=== PATIENT | female | born 1970 | race Caucasian/White ===

== ENCOUNTER 2018-04-21 08:23 | Emergency (ER) | payer MEDICARE, MEDICAID ==
[~2018-04-21] VITALS: Ht 162.6 cm; Wt 55.0 kg
[~2018-04-21 08:23] MED LIST: /LAMO10TA PO; /ONDA4TA PO; AKWASOL OU; ANBEEL MT; BACT800T5 PO; BENG1CRE3 TOP; CARB20TA PO; CLON2TAB PO; COGENTIN PO; HALD100I2 IM; KLON1TAB PO; MOTRIN PO; NICO21DI6 TD; PROZ20CA11 PO; TRAM50TA2 PO; ZOFR4TAB16 PO
[2018-04-21] MEDS ORDERED: PRED20TA PO (08:40)
[2018-04-21] MEDS ORDERED: CLON1TAB8 PO (08:40)
[2018-04-21] MEDS ORDERED: VENTAER INH (08:40)
[2018-04-21] MEDS ORDERED: FLUO20CA19 PO (08:40)
[2018-04-21] MEDS ORDERED: SUCR1SS PO (08:40)
[2018-04-21 11:35] VITALS: BP 124/68
== END 2018-04-21 11:40 | disposition home or self-care (01) ==
LOC: M ED 08:23
DX: F43.20 Adjustment disorder, unspecified (principal); F33.9 Major depressive disorder, recurrent, unspecified; K21.9 Gastro-esophageal reflux disease without esophagitis; Z88.0 Allergy status to penicillin; Z88.8 Allergy status to other drugs, medicaments and biological substances

== ENCOUNTER 2018-04-24 07:16 | Inpatient (IN) | payer MEDICARE, MEDICAID ==
[~2018-04-24] VITALS: Ht 162.6 cm; Wt 58.0 kg
[~2018-04-24 07:16] MED LIST changes: +CLON1TAB8 PO; +FLUO20CA19 PO; +PRED20TA PO; +SUCR1SS PO; +VENTAER INH
[2018-04-24 07:51] LABS: HEMATOCRIT 36.9 % (36.0-47.0); HEMOGLOBIN 12.1 g/dl (12.0-15.5); MEAN CORPUSCULAR HGB CONC 32.8 g/dl (32.0-36.5); MEAN CORPUSCULAR VOLUME 91.3 fl (80.0-96.0); PLATELET COUNT, AUTOMATED 335 10^3/uL (150-450); RED BLOOD COUNT 4.04 10^6/uL (4.00-5.40); WHITE BLOOD COUNT 9.8 10^3/uL (4.0-10.0)
[2018-04-24 08:11] LABS: AMPHETAMINES LEVEL URINE NEGATIVE (NEGATIVE); BARBITURATES URINE NEGATIVE (NEGATIVE); BENZODIAZEPINES URINE NEGATIVE (NEGATIVE); CANNABINOIDS URINE POSITIVE (NEGATIVE); COCAINE METABOLITE URINE NEGATIVE (NEGATIVE); METHADONE URINE NEGATIVE (NEGATIVE); OPIATES URINE NEGATIVE (NEGATIVE); PHENCYCLIDINE URINE NEGATIVE (NEGATIVE)
[2018-04-24] MEDS ORDERED: NICOTINE 21MG/24HR 1 EA TRANSDERMAL TD ONE (08:15)
[2018-04-24] MEDS ORDERED: ONDANSETRON 4 MG ORAL DISINTEGRATING TAB (Q0162 PER 1MG) PO ONE (08:15)
[2018-04-24 08:39] LABS: HCG, SERUM QUALITATIVE NEGATIVE (NEGATIVE)
[2018-04-24 08:43] LABS: ALBUMIN 3.7 GM/DL (3.2-5.2); ALT/SGPT 28 U/L (12-78); BILIRUBIN,DIRECT 0.2 MG/DL (0.0-0.2); BILIRUBIN,TOTAL 0.5 MG/DL (0.2-1.0); BLOOD UREA NITROGEN 6 MG/DL (7-18); CALCIUM LEVEL 8.8 MG/DL (8.5-10.1); CARBON DIOXIDE LEVEL 26 MEQ/L (21-32); CHLORIDE LEVEL 108 MEQ/L (98-107); CREATININE FOR GFR 0.73 MG/DL (0.55-1.30); GLOMERULAR FILTRATION RATE > 60.0 (>58); GLUCOSE, FASTING 72 MG/DL (70-100); POTASSIUM SERUM 3.4 MEQ/L (3.5-5.1); SALICYLATE LEVEL 4.2 MG/DL (5.0-30.0); SODIUM LEVEL 141 MEQ/L (136-145); THYROID STIMULATING HORMONE 0.362 uIU/ML (0.358-3.740)
[2018-04-24 08:44] LABS: ACETAMINOPHEN LEVEL < 2.0 UG/ML (10.0-30.0); ETHYL ALCOHOL (ETHANOL) < 0.003 % (0.000-0.010)
[2018-04-24] MEDS ORDERED: POTASSIUM CHLORIDE 10 MEQ SR TABLET PO ONE (09:30)
[2018-04-24] MEDS ORDERED: ONDA4TAB6 PO (09:35)
[2018-04-24] MEDS ORDERED: traZODone 50 MG TAB PO PRN (14:00)
[2018-04-24 15:00] VITALS: BP 125/89
[2018-04-24 18:00] VITALS: BP 102/59
[2018-04-24] MEDS: ALBUTEROL 90 MCG/ACT 8GM HFA INHALER INH PRN ×2 (18:47→23:54)
[2018-04-24] MEDS: SUCRALFATE SUSP 1GM/10ML UD PO SCH (22:34)
[2018-04-24] MEDS: clonazePAM 1 MG TAB PO PRN (23:50)
[2018-04-25] MEDS: ONDANSETRON 4 MG ORAL DISINTEGRATING TAB (Q0162 PER 1MG) PO PRN ×3 (00:59→15:06)
[2018-04-25] MEDS: SUCRALFATE SUSP 1GM/10ML UD PO SCH ×4 (06:50→22:09)
[2018-04-25 06:53] VITALS: BP 109/62
[2018-04-25] MEDS: ALBUTEROL 90 MCG/ACT 8GM HFA INHALER INH PRN ×2 (08:19→14:55)
[2018-04-25] MEDS ORDERED: NICOTINE 21MG/24HR 1 EA TRANSDERMAL TD ONE (09:00)
[2018-04-25] MEDS: OXcarbazepine 150 MG TAB PO SCH (09:00)
[2018-04-25] MEDS: clonazePAM 1 MG TAB PO PRN ×2 (10:05→22:09)
[2018-04-25] MEDS: METAMUCIL (PSYLLIUM) PACKET PO SCH ×2 (11:25→21:00)
--- NOTE | 2018-04-25 14:47 | MHHPE ---
DATE OF ADMISSION: 04/24/2018 IDENTIFYING DATA: She is a 47-year-old female, living with her boyfriend, with history of bipolar disorder, was brought by the police for bizarre behavior. CHIEF COMPLAINT: "I have a problem with my boyfriend, I don't want to live with him." HISTORY OF PRESENT ILLNESS: The patient was brought by the police as her called the police because for the last two weeks the patient has been manic. She is on prednisone for her hepatitis C. She is reportedly all around the place, cleaning her house. She reports that she feels like she is on speed. It is difficult to follow her as the patient is very tangential, circumstantial, and there is flight of ideas. The patient reports she has been allergic to most of the medications. She also reports she took herself off from Prozac as it was not helping her. She has started taking cannabidiol (CBD) oil which helps her mood as per the patient. Currently denies any suicidal or homicidal ideas. PAST PSYCHIATRIC HISTORY: She had several psychiatric hospitalizations in the past. The first time she was admitted was in 1989. FAMILY HISTORY: Unknown but suggested the mother has considerable emotional difficulties. PAST MEDICAL HISTORY: The patient has a history of hepatitis C. SUBSTANCE ABUSE HISTORY: The patient has a history of cannabis use. In the past, she had a history of use of methamphetamine. SOCIAL HISTORY: She is not clear. She is stayed in various places for several years. She states her mother had signed over her house to her but there is a dispute. She denied any sexual abuse. The patient the patient's she is allergic to most of the antipsychotics and mood stabilizers. The reality is unknown. MENTAL STATUS EXAMINATION: She is neat, thin-built, cooperative. Psychomotor activity is markedly increased. She made good eye contact. Speech: Rate, rhythm and volume are hyper-verbal, pressured. Thought process: Tangential, flight of ideas, circumstantial at times. Thought content: Denied any suicidal or homicidal ideas. She is alert and oriented to time, place and person. Her insight and judgment are impaired. VITAL SIGNS: Temperature is 97.8, pulse is 72, respiratory rate is 16, blood pressure 109/62. REVIEW OF SYSTEMS: CONSTITUTIONAL: Negative for night sweats, weight loss. HEENT: Negative for epistaxis, headache, hearing loss, sore throat. RESPIRATORY: No cough. No shortness of breath. No wheezing. CARDIOVASCULAR: Negative for chest pain, dyspnea on exertion, edema of the feet. GASTROINTESTINAL: No abdominal pain. No change in bowel habits. GENITOURINARY: No dysuria. No trouble voiding. No hematuria. MUSCULOSKELETAL: No gait disturbances. No joint swelling or joint pain. NEUROLOGICAL: Denied any numbness, tingling, dizziness, or seizures. LABORATORY DATA: CBC within normal limits. CMP is normal. Her potassium was low. We will repeat her blood for repeat potassium. HCG is negative. CURRENT MEDICATIONS: - trazodone 50 mg at bedtime as needed - Klonopin 1 mg twice a day as needed DIAGNOSES: 1. Bipolar 1 disorder. 2. Cannabis use disorder. ASSESSMENT AND PLAN: She is a 47-year-old female with a history of bipolar disorder. Currently, she is in manic phase after using prednisone which she has been using for her hepatitis C. She reports she is allergic to all the medications and does not want any mood stabilizer. However, Trileptal was not in the list of allergies of her medications. I would like to try that medication. The patient will continue individual, group and milieu therapy. She will be seen by physician radiology physician assistant (PA) for her medical needs. She will be on 15 minutes check and suicide precautions. She will be seen by group social worker and case management. The patient will receive individual, group and milieu therapy. ESTIMATED LENGTH OF STAY: 4-5 days.
[2018-04-25 15:23] LABS: BLOOD UREA NITROGEN 4 MG/DL (7-18); CALCIUM LEVEL 8.8 MG/DL (8.5-10.1); CARBON DIOXIDE LEVEL 26 MEQ/L (21-32); CHLORIDE LEVEL 108 MEQ/L (98-107); CREATININE FOR GFR 0.66 MG/DL (0.55-1.30); GLOMERULAR FILTRATION RATE > 60.0 (>58); GLUCOSE, FASTING 88 MG/DL (70-100); SODIUM LEVEL 141 MEQ/L (136-145)
[2018-04-25 18:00] VITALS: BP 133/88
[2018-04-25] MEDS: IBUPROFEN 400 MG TAB PO PRN (22:49)
[2018-04-26] MEDS: ONDANSETRON 4 MG ORAL DISINTEGRATING TAB (Q0162 PER 1MG) PO PRN ×4 (01:41→20:42)
[2018-04-26] MEDS: ALBUTEROL 90 MCG/ACT 8GM HFA INHALER INH PRN ×3 (01:46→16:14)
[2018-04-26] MEDS: SUCRALFATE SUSP 1GM/10ML UD PO SCH ×4 (06:35→20:42)
[2018-04-26 07:00] VITALS: BP 112/56
[2018-04-26] MEDS: METAMUCIL (PSYLLIUM) PACKET PO SCH ×2 (09:00→20:43)
[2018-04-26] MEDS: OXcarbazepine 150 MG TAB PO SCH ×2 (09:00→20:43)
[2018-04-26] MEDS: NICOTINE 21MG/24HR 1 EA TRANSDERMAL TD SCH (09:04)
[2018-04-26] MEDS: clonazePAM 1 MG TAB PO PRN ×2 (10:22→22:04)
[2018-04-26] MEDS: IBUPROFEN 400 MG TAB PO PRN ×2 (10:25→20:42)
--- NOTE | 2018-04-26 11:22 | REP ---
Right rib series: Four views including PA chest. History: Pain in the right anterior 5th through 12th ribs. Findings: PA chest radiograph is normal. There is no evidence of pneumothorax or hydrothorax. Mediastinum is not widened. Lung rosario are clear. Multiple views of the right ribcage demonstrate a fracture involving the anterolateral right 7th rib.. There is some minimal adjacent pleural thickening. No other rib fracture is seen. Impression: Nondisplaced fracture anterolateral segment of the right seventh rib. Otherwise negative. Electronically Signed by Everardo Toledo MD 04/26/2018 11:13 A
--- NOTE | 2018-04-26 15:56 | HPE ---
DATE OF ADMISSION: 04/24/2018 HISTORY OF PRESENT ILLNESS: Please refer to psychiatric history and evaluation for further details on this admission. This examination and history is intended for medical issues which may need treatment, followup or consult on this 47-year-old female. SOCIAL HISTORY: She was living with a significant other, states she is going to be getting her own apartment when she gets out of here. She is . She smokes one pack of cigarettes per day. She has used illicit drugs in the past, cocaine, marijuana, heroin, crystal meth, crack cocaine, acid and ecstasy. Currently, she states she only smokes cannabinoids. FAMILY HISTORY: Mother alive, health unknown. Father , reason unknown. PAST MEDICAL HISTORY: 1. Bipolar disorder. 2. Hepatitis C, treated. 3. Hepatitis B. 4. Ectopic . 5. Tobacco use. 6. Irritable bowel syndrome. 7. Hiatal hernia. 8. Reflux. PAST SURGICAL HISTORY: Dilation and curettage. ALLERGIES: TYLENOL, ABILIFY, CARBITOL, FLUPHENAZINE, HALOPERIDOL, LITHIUM, LOPERAMIDE, REGLAN, OLANZAPINE, PENICILLIN, RANITIDINE, RISPERIDONE, SERTRALINE, VALPROIC ACID. LABORATORY STUDIES: CBC was normal. Sodium 141, potassium 3.4, chloride 108, CO2 24, BUN 6, creatinine 0.73. Urine was positive for cannabinoids. HOME MEDICATIONS: - Ventolin HFA two puffs by mouth every four hours as needed for shortness of breath - clonazepam 1 mg by mouth as needed for pain - Zofran 4 mg by mouth every six hours as needed for nausea - sucralfate 10 mL by mouth before meals and at bedtime ECG on file from 12/18/2017 showed normal sinus rhythm, nonspecific ST and T wave abnormalities. No change from 01/27/2013. REVIEW OF SYSTEMS: 10 systems review was done. No complaint of headache. No blurred or double vision. No fever. No chills. No tinnitus. No hoarseness. No difficulty swallowing. No lightheadedness or vertigo. Breast: No masses. Cardiovascular: No complaints of chest pain, shortness of breath, palpitations, or edema. Respiratory: No chronic cough. No sputum production. No hemoptysis. No orthopnea. No wheeze. Gastrointestinal (GI): She states she gets acid buildup and has occasional vomiting. States she has had weight loss. She states she is being worked up by her primary care provider, TONYA Kumar. Denies hematochezia, melena, or rectal bleeding or hematemesis. Genitourinary (): No hematuria, dysuria, or frequency. Musculoskeletal: No joint redness or swelling. Complains of pain in her right rib area. States she slept on a fireplace or some type of brick area and is complaining of right rib pain. Endocrine: No polyuria, polydipsia, or polyphagia. Hematological: No history of anemia. Neurological: No history of seizures. No paresthesias or paralysis. Psychological: See psychiatric history of present illness (HPI). PHYSICAL EXAMINATION: A 47-year-old cooperative female in no acute distress. Height 64 inches. Weight 55.8 kg. Body mass index (BMI) 21.1. Blood pressure 109/62, pulse 72, respirations 16, temperature 97.8, oxygen saturation 96% on room air. The patient is alert and oriented times three. Pupils are equal and react to light. Extraocular muscles intact. Cornea and sclerae are clear. Conjunctiva is normal. No facial asymmetry. Pharynx, tongue and gums pink and moist. Tongue is midline. Neck is supple without lymphadenopathy. No thyromegaly. No goiter. Carotids are 2+ without bruit. Chest is clear to auscultation without wheeze or retractions. Heart is regular. Abdomen is benign. Bowel sounds are positive. Genitourinary ()/rectal: Not done. Extremities show equal strength, full range of motion. No cyanosis, clubbing or edema. Peripheral pulses are equal and palpable bilaterally. Skin is warm and dry. Right anterior and lateral rib area tender to palpation. No crepitus. No subcutaneous emphysema. IMPRESSION AND PLAN: 1. Sore rib area. We will get a chest x-ray as well as a unilateral rib x-ray. 2. Episodic reflux and vomiting. Continued followup and workup with TONYA Gamboa. Continue sucralfate. 4. Irritable bowel syndrome (IBS). Continue Metamucil and followup with primary care provider. 5. Tobacco use. Nicotine patch available.
--- NOTE | 2018-04-26 16:06 | MHIPNPDOC ---
[facility] [place] Progress Note Progress Note DATE OF SERVICE: 04/26/18 HISTORY: As per Dr. Oliver: " CHIEF COMPLAINT: "I have a problem with my boyfriend, I don't want to live with him." HISTORY OF PRESENT ILLNESS: The patient was brought by the police as her called the police because for the last two weeks the patient has been manic. She is on prednisone for her hepatitis C. She is reportedly all around the place, cleaning her house. She reports that she feels like she is on speed. It is difficult to follow her as the patient is very tangential, circumstantial, and there is flight of ideas. The patient reports she has been allergic to most of the medications. She also reports she took herself off from Prozac as it was not helping her. She has started taking cannabidiol (CBD) oil which helps her mood as per the patient. Currently denies any suicidal or homicidal ideas." VITAL SIGNS: See below. NEW TEST RESULTS: See below CURRENT MEDICATIONS: See below. MENTAL STATUS EXAMINATION: Patient is a 47-year old female, who is alert, cooperative, dressed in hospital clothes. Speech: Is tangential, circumstantial, pressured, hyper verbal Thought processes including:circumstantial, tangential, flight of ideas, irrational Thought content: Focused on getting some makeup. She is delusional. Description of abnormal or psychotic thoughts: Denies AV hallucinations but she is delusional Judgment: Poor Insight: Poor Orientation: x 3. Recent and remote memory: intact. Attention span and concentration: Distractible, she's derailed. Mood: labile. Affect: congruent with mood. Labile. DIAGNOSES: 1. Bipolar disorder 2. Cannabis use disorder ASSESSMENT: Patient is still manic, she is delusional, she is hyper verbal, has pressured speech, she is not insightful about her situation, her judgement is poor. Medications will be titrated accordingly. MANAGEMENT PLAN: Increase Trileptal to 150 mgs PO BID, start Seroquel 150 mgs PO QHS, discontinue Trazodone TIME SPENT: 20 minutes. Vital Signs Vital Signs Date Time Temp Pulse Resp B/P (MAP) Pulse Ox O2 Delivery O2 Flow Rate FiO2 04/26/18 08:18 Room Air 04/26/18 07:00 97.0 113 16 112/56 (74) 04/24/18 15:00 96 Current Medications Current Medications Al Hydrox/Mg Hydrox/Simethicone (Mylanta) 30 ml Q4HP PRN PO HEARTBURN/INDIGESTION; Start 04/24/18 at 14:00 Albuterol Sulfate (Proventil, Ventolin Hfa) 2 puff Q4HP PRN INH SHORTNESS OF BREATH Last administered on 04/26/18 08:19; Start 04/24/18 at 18:45 Clonazepam (KlonoPIN) 1 mg BIDP PRN PO ANXIETY/AGITATION Last administered on 04/26/18 10:22; Start 04/24/18 at 18:45 Home Med (Med Rec Complete!) ASDIRECTED XX ; Start 04/24/18 at 09:45; Stop 04/24/18 at 09:45; Status DC Ibuprofen (Advil) 400 mg Q8HP PRN PO PAIN OR DISCOMFORT Last administered on 04/26/18 10:25; Start 04/25/18 at 21:45 Magnesium Hydroxide (Milk Of Magnesia) 30 ml DAILYPRN PRN PO CONSTIPATION; Start 04/24/18 at 14:00 Nicotine (Nicoderm Cq 21mg) 1 patch DAILY TD Last administered on 04/26/18 09:04; Start 04/26/18 at 09:00 Ondansetron HCl (Zofran Odt) 4 mg Q6H PRN PO NAUSEA Last administered on 04/26/18 14:25; Start 04/24/18 at 18:45 Oxcarbazepine (Trileptal) 150 mg QAM PO ; Start 04/25/18 at 09:00 Psyllium Hydrophilic Mucilloid (Metamucil) 1 pkt BID PO Last administered on 04/25/18 11:25; Start 04/25/18 at 09:00 Sucralfate (Carafate Suspension) 1 gm ACHS PO Last administered on 04/26/18 12:06; Start 04/24/18 at 21:00 Trazodone HCl (Desyrel) 50 mg QHSP PRN PO INSOMNIA; Start 04/24/18 at 14:00 Allergies Coded Allergies: Aripiprazole (Unverified Allergy, Unknown, 01/13/13) Carbitol (Unverified Allergy, Unknown, 01/13/13) Fluphenazine (Unverified Allergy, Unknown, 01/13/13) [place] (Unverified Allergy, Unknown, 01/13/13) Meperidine (Unverified Allergy, Unknown, 01/13/13) Metoclopramide (Unverified Allergy, Unknown, 01/13/13) Olanzapine (Unverified Allergy, Unknown, 01/13/13) Penicillins (Unverified Allergy, Unknown, 01/13/13) Ranitidine (Unverified Allergy, Unknown, 01/13/13) Risperidone (Unverified Allergy, Unknown, 01/13/13) Sertraline (Unverified Allergy, Unknown, 01/13/13) Valproic Acid (Unverified Allergy, Unknown, 01/13/13) Acetaminophen (Unverified Adverse Reaction, Intermediate, PT Hx hep C, hep B, 04/24/18) Haloperidol (Verified Adverse Reaction, Intermediate, makes me go crazy, 04/24/18) BRENNA FLEMING MD Apr 26, 2018 16:00
[2018-04-26 18:00] VITALS: BP 125/72
[2018-04-26] MEDS: QUEtiapine FUMARATE 50 MG TAB PO SCH (20:43)
[2018-04-27] MEDS: MOM 30ML SUSPENSION UDC PO PRN (00:08)
[2018-04-27] MEDS: MAALOX 30 ML SUSP *UDC PO PRN (00:08)
[2018-04-27] MEDS: QUEtiapine FUMARATE 50 MG TAB PO SCH (00:09)
[2018-04-27 06:50] VITALS: BP 120/58
[2018-04-27] MEDS: ONDANSETRON 4 MG ORAL DISINTEGRATING TAB (Q0162 PER 1MG) PO PRN ×2 (07:33→20:25)
[2018-04-27] MEDS: SUCRALFATE SUSP 1GM/10ML UD PO SCH ×4 (07:34→20:29)
[2018-04-27] MEDS: ALBUTEROL 90 MCG/ACT 8GM HFA INHALER INH PRN ×3 (07:37→20:28)
[2018-04-27] MEDS: OXcarbazepine 150 MG TAB PO SCH ×2 (09:00→20:29)
[2018-04-27] MEDS: METAMUCIL (PSYLLIUM) PACKET PO SCH ×2 (09:00→20:29)
[2018-04-27] MEDS: NICOTINE 21MG/24HR 1 EA TRANSDERMAL TD SCH (09:43)
[2018-04-27] MEDS: clonazePAM 1 MG TAB PO PRN ×2 (10:37→20:29)
[2018-04-27 18:00] VITALS: BP 129/65
--- NOTE | 2018-04-27 19:46 | MHIPNPDOC ---
[facility] Progress Note Progress Note DATE OF SERVICE: 04/27/18 HISTORY: As per Dr. Oliver: " CHIEF COMPLAINT: "I have a problem with my boyfriend, I don't want to live with him." HISTORY OF PRESENT ILLNESS: The patient was brought by the police as her called the police because for the last two weeks the patient has been manic. She is on prednisone for her hepatitis C. She is reportedly all around the place, cleaning her house. She reports that she feels like she is on speed. It is difficult to follow her as the patient is very tangential, circumstantial, and there is flight of ideas. The patient reports she has been allergic to most of the medications. She also reports she took herself off from Prozac as it was not helping her. She has started taking cannabidiol (CBD) oil which helps her mood as per the patient. Currently denies any suicidal or homicidal ideas." VITAL SIGNS: See below. NEW TEST RESULTS: See below CURRENT MEDICATIONS: See below. MENTAL STATUS EXAMINATION: Patient is a 47-year old female, who is alert, cooperative, dressed in hospital clothes. Speech: Is tangential, circumstantial, pressured, hyper verbal but a little less rapid than yesterday Thought processes including:circumstantial, tangential, flight of ideas, irrational Thought content: continues to be delusional and talks about some women she met while she was in [place]. she describes them as murderers Description of abnormal or psychotic thoughts: Denies AV hallucinations, denies SI, denies HI but she is delusional Judgment: Poor Insight: Poor Orientation: x 3. Recent and remote memory: intact. Attention span and concentration: Distractible, she's derailed. Mood: labile. Affect: congruent with mood. Labile. DIAGNOSES: 1. Bipolar disorder 2. Cannabis use disorder ASSESSMENT: Patient continues to be manic, her speech is rapid and pressured but a little less compared to yesterday. Continues to be delusional, tangential and circumstantial. she told me today she doesn't want to keep taking Lamictal because of the side effects ( she is not taking Lamictal) I ask her what side effects are those and she doesn't know what to tell me, starts talking about experiences she said she had while she was in [place], with the same women she described yesterday as dangerous, because she says, one of them is a murderer. She talks about her with whom she has been having problems and says : "That relationship is over and I'm OK with that. We're done" MANAGEMENT PLAN: Increase Seroquel to 200 mgs PO QHS TIME SPENT: 20 minutes. Vital Signs Vital Signs Date Time Temp Pulse Resp B/P (MAP) Pulse Ox O2 Delivery O2 Flow Rate FiO2 04/27/18 18:00 99.8 88 16 129/65 (86) 04/26/18 18:00 96 Room Air Current Medications Current Medications Al Hydrox/Mg Hydrox/Simethicone (Mylanta) 30 ml Q4HP PRN PO HEARTBURN/INDIGESTION Last administered on 04/27/18 00:08; Start 04/24/18 at 14:00 Albuterol Sulfate (Proventil, Ventolin Hfa) 2 puff Q4HP PRN INH SHORTNESS OF BREATH Last administered on 04/27/18 12:16; Start 04/24/18 at 18:45 Clonazepam (KlonoPIN) 1 mg BIDP PRN PO ANXIETY/AGITATION Last administered on 04/27/18 10:37; Start 04/24/18 at 18:45 Home Med (Med Rec Complete!) ASDIRECTED XX ; Start 04/24/18 at 09:45; Stop 04/24/18 at 09:45; Status DC Ibuprofen (Advil) 400 mg Q8HP PRN PO PAIN OR DISCOMFORT Last administered on 04/26/18 20:42; Start 04/25/18 at 21:45 Magnesium Hydroxide (Milk Of Magnesia) 30 ml DAILYPRN PRN PO CONSTIPATION Last administered on 04/27/18 00:08; Start 04/24/18 at 14:00 Nicotine (Nicoderm Cq 21mg) 1 patch DAILY TD Last administered on 04/27/18 09:43; Start 04/26/18 at 09:00 Ondansetron HCl (Zofran Odt) 4 mg Q6H PRN PO NAUSEA Last administered on 04/27/18 07:33; Start 04/24/18 at 18:45 Oxcarbazepine (Trileptal) 150 mg BID PO ; Start 04/26/18 at 21:00 Oxcarbazepine (Trileptal) 150 mg QAM PO ; Start 04/25/18 at 09:00; Stop 04/26/18 at 16:04; Status DC Psyllium Hydrophilic Mucilloid (Metamucil) 1 pkt BID PO Last administered on 04/25/18at 11:25; Start 04/25/18 at 09:00 Quetiapine Fumarate (SEROquel) 150 mg QHS PO Last administered on 04/27/18at 00:09; Start 04/26/18 at 21:00 Sucralfate (Carafate Suspension) 1 gm ACHS PO Last administered on 04/27/18at 17:01; Start 04/24/18 at 21:00 Trazodone HCl (Desyrel) 50 mg QHSP PRN PO INSOMNIA; Start 04/24/18 at 14:00; Status Cancel Allergies Coded Allergies: Aripiprazole (Unverified Allergy, Unknown, 01/13/13) Carbitol (Unverified Allergy, Unknown, 01/13/13) Fluphenazine (Unverified Allergy, Unknown, 01/13/13) [place] (Unverified Allergy, Unknown, 01/13/13) Meperidine (Unverified Allergy, Unknown, 01/13/13) Metoclopramide (Unverified Allergy, Unknown, 01/13/13) Olanzapine (Unverified Allergy, Unknown, 01/13/13) Penicillins (Unverified Allergy, Unknown, 01/13/13) Ranitidine (Unverified Allergy, Unknown, 01/13/13) Risperidone (Unverified Allergy, Unknown, 01/13/13) Sertraline (Unverified Allergy, Unknown, 01/13/13) Valproic Acid (Unverified Allergy, Unknown, 01/13/13) Acetaminophen (Unverified Adverse Reaction, Intermediate, PT Hx hep C, hep B, 04/24/18) Haloperidol (Verified Adverse Reaction, Intermediate, makes me go crazy, 04/24/18) BRENNA FLEMING MD Apr 27, 2018 19:46
[2018-04-27] MEDS: IBUPROFEN 400 MG TAB PO PRN (20:25)
[2018-04-27] MEDS ORDERED: QUEtiapine FUMARATE 200 MG TAB PO SCH (21:00)
[2018-04-28 06:31] VITALS: BP 138/84
[2018-04-28] MEDS: SUCRALFATE SUSP 1GM/10ML UD PO SCH ×3 (06:41→17:58)
[2018-04-28] MEDS: ALBUTEROL 90 MCG/ACT 8GM HFA INHALER INH PRN (07:51)
[2018-04-28] MEDS: ONDANSETRON 4 MG ORAL DISINTEGRATING TAB (Q0162 PER 1MG) PO PRN ×2 (07:51→20:35)
[2018-04-28] MEDS: METAMUCIL (PSYLLIUM) PACKET PO SCH ×2 (08:43→21:00)
[2018-04-28] MEDS: OXcarbazepine 150 MG TAB PO SCH (08:43)
[2018-04-28] MEDS ORDERED: QUEtiapine FUMARATE 100 MG TAB PO SCH ×2 (09:00→15:00)
[2018-04-28] MEDS: NICOTINE 21MG/24HR 1 EA TRANSDERMAL TD SCH (09:27)
[2018-04-28] MEDS: clonazePAM 1 MG TAB PO PRN ×2 (10:51→20:36)
[2018-04-28] MEDS: IBUPROFEN 400 MG TAB PO PRN (10:53)
[2018-04-28] MEDS ORDERED: diphenhydrAMINE 25 MG CAP PO ONE (12:15)
--- NOTE | 2018-04-28 14:53 | MHIPNPDOC ---
[facility] Progress Note Progress Note DATE OF SERVICE: 04/28/18 HISTORY: As per Dr. Oliver: " CHIEF COMPLAINT: "I have a problem with my boyfriend, I don't want to live with him." HISTORY OF PRESENT ILLNESS: The patient was brought by the police as her called the police because for the last two weeks the patient has been manic. She is on prednisone for her hepatitis C. She is reportedly all around the place, cleaning her house. She reports that she feels like she is on speed. It is difficult to follow her as the patient is very tangential, circumstantial, and there is flight of ideas. The patient reports she has been allergic to most of the medications. She also reports she took herself off from Prozac as it was not helping her. She has started taking cannabidiol (CBD) oil which helps her mood as per the patient. Currently denies any suicidal or homicidal ideas." VITAL SIGNS: See below. NEW TEST RESULTS: See below CURRENT MEDICATIONS: See below. MENTAL STATUS EXAMINATION: Patient is a 47-year old female, who is alert, cooperative, dressed in hospital clothes. Speech: Is tangential, circumstantial, pressured, hyper verbal, less rapid, less pressured Thought processes including:circumstantial, tangential, flight of ideas, irrational Thought content: focused on the breakups she had with her Description of abnormal or psychotic thoughts: Denies AV hallucinations, denies SI, denies HI but she is delusional Judgment: Poor Insight: Poor Orientation: x 3. Recent and remote memory: intact. Attention span and concentration: Distractible, she's derailed. Mood: labile. Affect: congruent with mood. Labile. DIAGNOSES: 1. Bipolar disorder 2. Cannabis use disorder ASSESSMENT: Patient is still manic but she is pleasant and she expressed her concerns about being allergic to Seroquel even when she said she loves that medication. I asked her to show me the rash she says she has and shows me a very localized area on her wrist that looks like a watch band and some of the rash is on her pinky too. Staff informs me she is using glue for crafts and it could be caused byt the glue. Kat Miller spoke with her and she agreed to continue taking Seroquel if I gave her a Benadryl and I ordered a one time dose of 25 mgs. MANAGEMENT PLAN: Increase Seroquel to 250 mgs PO QHS, 50 mgs PO QAM and 50 mgs PO daiily at 3 PM TIME SPENT: 20 minutes. Vital Signs Vital Signs Date Time Temp Pulse Resp B/P (MAP) Pulse Ox O2 Delivery O2 Flow Rate FiO2 04/28/18 06:31 97.8 98 16 138/84 (102) Room Air 04/26/18 18:00 96 Current Medications Current Medications Al Hydrox/Mg Hydrox/Simethicone (Mylanta) 30 ml Q4HP PRN PO HEARTBURN/IND IGESTION Last administered on 04/27/18 00:08; Start 04/24/18 at 14:00 Albuterol Sulfate (Proventil, Ventolin Hfa) 2 puff Q4HP PRN INH SHORTNESS OF BREATH Last administered on 04/28/18 07:51; Start 04/24/18 at 18:45 Clonazepam (KlonoPIN) 1 mg BIDP PRN PO ANXIETY/AGITATION Last administered on 04/28/18 10:51; Start 04/24/18 at 18:45 Home Med (Med Rec Complete!) ASDIRECTED XX ; Start 04/24/18 at 09:45; Stop 04/24/18 at 09:45; Status DC Ibuprofen (Advil) 400 mg Q8HP PRN PO PAIN OR DISCOMFORT Last administered on 04/28/18 10:53; Start 04/25/18 at 21:45 Lurasidone HCl (Latuda) 20 mg BID PO ; Start 04/28/18 at 21:00; Status Cancel Magnesium Hydroxide (Milk Of Magnesia) 30 ml DAILYPRN PRN PO CONSTIPATION Last administered on 04/27/18 00:08; Start 04/24/18 at 14:00 Nicotine (Nicoderm Cq 21mg) 1 patch DAILY TD Last administered on 04/28/18 09:27; Start 04/26/18 at 09:00 Ondansetron HCl (Zofran Odt) 4 mg Q6H PRN PO NAUSEA Last administered on 04/28/18 07:51; Start 04/24/18 at 18:45 Oxcarbazepine (Trileptal) 150 mg BID PO ; Start 04/26/18 at 21:00; Stop 04/28/18 at 11:20; Status DC Oxcarbazepine (Trileptal) 150 mg QAM PO ; Start 04/25/18 at 09:00; Stop 04/26/18 at 16:04; Status DC Psyllium Hydrophilic Mucilloid (Metamucil) 1 pkt BID PO Last administered on 04/25/18at 11:25; Start 04/25/18 at 09:00 Quetiapine Fumarate (SEROquel) 50 mg DAILY@1500 PO ; Start 04/28/18 at 15:00 Quetiapine Fumarate (SEROquel) 50 mg QAM PO ; Start 04/29/18 at 09:00 Quetiapine Fumarate (SEROquel) 100 mg QAM PO ; Start 04/28/18 at 09:00; Stop 04/28/18 at 12:01; Status DC Quetiapine Fumarate (SEROquel) 150 mg DAILY@1500 PO ; Start 04/28/18 at 15:00; Status Cancel Quetiapine Fumarate (SEROquel) 150 mg QHS PO Last administered on 04/27/18at 00:09; Start 04/26/18 at 21:00; Stop 04/27/18 at 19:45; Status DC Quetiapine Fumarate (SEROquel) 200 mg QHS PO Last administered on 04/27/18at 20:29; Start 04/27/18 at 21:00; Stop 04/28/18 at 11:21; Status DC Quetiapine Fumarate (SEROquel) 250 mg QHS PO ; Start 04/28/18 at 21:00 Sucralfate (Carafate Suspension) 1 gm ACHS PO Last administered on 04/28/18at 11:21; Start 04/24/18 at 21:00 Trazodone HCl (Desyrel) 50 mg QHSP PRN PO INSOMNIA; Start 04/24/18 at 14:00; Status Cancel Allergies Coded Allergies: Aripiprazole (Unverified Allergy, Unknown, 01/13/13) Carbitol (Unverified Allergy, Unknown, 01/13/13) Fluphenazine (Unverified Allergy, Unknown, 01/13/13) [place] (Unverified Allergy, Unknown, 01/13/13) Meperidine (Unverified Allergy, Unknown, 01/13/13) Metoclopramide (Unverified Allergy, Unknown, 01/13/13) Olanzapine (Unverified Allergy, Unknown, 01/13/13) Penicillins (Unverified Allergy, Unknown, 01/13/13) Ranitidine (Unverified Allergy, Unknown, 01/13/13) Risperidone (Unverified Allergy, Unknown, 01/13/13) Sertraline (Unverified Allergy, Unknown, 01/13/13) Valproic Acid (Unverified Allergy, Unknown, 01/13/13) Acetaminophen (Unverified Adverse Reaction, Intermediate, PT Hx hep C, hep B, 04/24/18) Haloperidol (Verified Adverse Reaction, Intermediate, makes me go crazy, 04/24/18) BRENNA FLEMING MD Apr 28, 2018 14:53
[2018-04-28] MEDS: QUEtiapine FUMARATE 50 MG TAB PO SCH (15:33)
[2018-04-28 18:00] VITALS: BP 137/69
[2018-04-28] MEDS ORDERED: LURASIDONE 20 MG TAB (LATUDA) PO SCH (21:00)
[2018-04-29] MEDS: QUEtiapine FUMARATE 100 MG TAB PO SCH ×2 (00:10→21:01)
[2018-04-29] MEDS: SUCRALFATE SUSP 1GM/10ML UD PO SCH ×5 (00:13→21:01)
[2018-04-29] MEDS: METAMUCIL (PSYLLIUM) PACKET PO SCH ×3 (00:14→21:00)
[2018-04-29] MEDS: IBUPROFEN 400 MG TAB PO PRN ×2 (00:17→16:12)
[2018-04-29] MEDS: MOM 30ML SUSPENSION UDC PO PRN (02:43)
[2018-04-29 06:45] VITALS: BP 136/86
[2018-04-29] MEDS: ALBUTEROL 90 MCG/ACT 8GM HFA INHALER INH PRN ×3 (07:35→21:07)
[2018-04-29] MEDS: ONDANSETRON 4 MG ORAL DISINTEGRATING TAB (Q0162 PER 1MG) PO PRN (07:36)
[2018-04-29 07:44] LABS: ALBUMIN 3.3 GM/DL (3.2-5.2); ALT/SGPT 30 U/L (12-78); BILIRUBIN,DIRECT < 0.1 MG/DL (0.0-0.2); BILIRUBIN,TOTAL 0.3 MG/DL (0.2-1.0); CHOLESTEROL LEVEL 143 MG/DL (<200); CHOLESTEROL RISK RATIO 2.383 (<5); HDL CHOLESTEROL 60 MG/DL (>40); LDL CHOLESTEROL 59 MG/DL (<100); NON-HDL-C 83 MG/DL; TOTAL PROTEIN 6.1 GM/DL (6.4-8.2); TRIGLYCERIDES LEVEL 121 MG/DL (<150)
[2018-04-29] MEDS: QUEtiapine FUMARATE 50 MG TAB PO SCH ×2 (09:04→15:43)
[2018-04-29] MEDS: NICOTINE 21MG/24HR 1 EA TRANSDERMAL TD SCH (09:04)
[2018-04-29] MEDS: MAALOX 30 ML SUSP *UDC PO PRN ×2 (10:12→23:53)
[2018-04-29] MEDS: clonazePAM 1 MG TAB PO PRN ×2 (11:32→21:01)
[2018-04-29 18:00] VITALS: BP 143/83
[2018-04-30] MEDS: ALBUTEROL 90 MCG/ACT 8GM HFA INHALER INH PRN ×3 (01:39→22:26)
[2018-04-30] MEDS: IBUPROFEN 400 MG TAB PO PRN ×3 (03:55→23:50)
[2018-04-30 06:47] VITALS: BP 112/66
[2018-04-30] MEDS: ONDANSETRON 4 MG ORAL DISINTEGRATING TAB (Q0162 PER 1MG) PO PRN (06:56)
[2018-04-30] MEDS: SUCRALFATE SUSP 1GM/10ML UD PO SCH ×4 (06:56→20:48)
[2018-04-30] MEDS: NICOTINE 21MG/24HR 1 EA TRANSDERMAL TD SCH (08:40)
[2018-04-30] MEDS: METAMUCIL (PSYLLIUM) PACKET PO SCH ×2 (08:42→20:19)
[2018-04-30] MEDS: MAALOX 30 ML SUSP *UDC PO PRN (08:44)
[2018-04-30] MEDS: MOM 30ML SUSPENSION UDC PO PRN (08:45)
[2018-04-30] MEDS: QUEtiapine FUMARATE 50 MG TAB PO SCH ×2 (09:00→15:00)
[2018-04-30] MEDS: clonazePAM 1 MG TAB PO PRN (11:40)
[2018-04-30] MEDS: LORazepam 2 MG TAB PO PRN ×2 (12:55→20:48)
[2018-04-30 18:00] VITALS: BP 131/89
[2018-04-30] MEDS: QUEtiapine FUMARATE 100 MG TAB PO SCH (20:49)
[2018-05-01] MEDS: MOM 30ML SUSPENSION UDC PO PRN (06:01)
[2018-05-01] MEDS: ALBUTEROL 90 MCG/ACT 8GM HFA INHALER INH PRN ×2 (06:47→16:02)
[2018-05-01 06:50] VITALS: BP 132/65
[2018-05-01] MEDS: SUCRALFATE SUSP 1GM/10ML UD PO SCH ×4 (06:50→21:22)
[2018-05-01] MEDS: QUEtiapine FUMARATE 50 MG TAB PO SCH ×2 (08:20→14:58)
[2018-05-01] MEDS: LORazepam 2 MG TAB PO PRN ×3 (08:20→22:31)
[2018-05-01] MEDS: NICOTINE 21MG/24HR 1 EA TRANSDERMAL TD SCH (08:24)
[2018-05-01] MEDS: METAMUCIL (PSYLLIUM) PACKET PO SCH ×2 (09:00→21:00)
[2018-05-01] MEDS: IBUPROFEN 400 MG TAB PO PRN (16:53)
--- NOTE | 2018-05-01 17:34 | MHIPNPDOC ---
[facility] Progress Note Progress Note DATE OF SERVICE: 05/01/18 HISTORY: As per Dr. Oliver: " CHIEF COMPLAINT: "I have a problem with my boyfriend, I don't want to live with him." HISTORY OF PRESENT ILLNESS: The patient was brought by the police as her called the police because for the last two weeks the patient has been manic. She is on prednisone for her hepatitis C. She is reportedly all around the place, cleaning her house. She reports that she feels like she is on speed. It is difficult to follow her as the patient is very tangential, circumstantial, and there is flight of ideas. The patient reports she has been allergic to most of the medications. She also reports she took herself off from Prozac as it was not helping her. She has started taking cannabidiol (CBD) oil which helps her mood as per the patient. Currently denies any suicidal or homicidal ideas." VITAL SIGNS: See below. NEW TEST RESULTS: See below CURRENT MEDICATIONS: See below. MENTAL STATUS EXAMINATION: Patient is a 47-year old female, who is alert, cooperative, dressed in hospital clothes. Speech: Is tangential, circumstantial, pressured, hyper verbal, less rapid, less pressured Thought processes including:circumstantial, tangential, flight of ideas, irrational Thought content: negative, angry thoughts, especially about her medications, that she doesn't like Description of abnormal or psychotic thoughts: Denies AV hallucinations, denies SI, denies HI but she is delusional Judgment: Poor Insight: Poor Orientation: x 3. Recent and remote memory: She remembers the names of previous psychiatrists at [facility], remembers what has happened recently. Attention span and concentration: Distractible, she's derailed. Mood: labile, irritable, angry Affect: congruent with mood. Labile, angry DIAGNOSES: 1. Bipolar disorder 2. Cannabis use disorder ASSESSMENT: Patient complains once again about her medications, she is refusing to take Seroquel but is taking Ativan. She will be started on Latuda 40 mgs PO QAM MANAGEMENT PLAN: Start Latuda 40 mgs PO QAM with meals TIME SPENT: 20 minutes. Vital Signs Vital Signs Date Time Temp Pulse Resp B/P (MAP) Pulse Ox O2 Delivery O2 Flow Rate FiO2 05/01/18 06:50 97.9 106 16 132/65 (87) 04/30/18 09:15 Room Air 04/26/18 18:00 96 Current Medications Current Medications Al Hydrox/Mg Hydrox/Simethicone (Mylanta) 30 ml Q4HP PRN PO HEARTBURN/INDIGESTION Last administered on 04/30/18 08:44; Start 04/24/18 at 14:00 Albuterol Sulfate (Proventil, Ventolin Hfa) 2 puff Q4HP PRN INH SHORTNESS OF BREATH Last administered on 05/01/18 16:02; Start 04/24/18 at 18:45 Clonazepam (KlonoPIN) 1 mg BIDP PRN PO ANXIETY/AGITATION Last administered on 04/30/18 11:40; Start 04/24/18 at 18:45; Stop 04/30/18 at 23:38; Status DC Home Med (Med Rec Complete!) ASDIRECTED XX ; Start 04/24/18 at 09:45; Stop 04/24/18 at 09:45; Status DC Ibuprofen (Advil) 400 mg Q8HP PRN PO PAIN OR DISCOMFORT Last administered on 05/01/18 16:53; Start 04/25/18 at 21:45 Lorazepam (Ativan) 2 mg Q6HP PRN PO ANXIETY/AGITATION Last administered on 05/01/18 16:01; Start 04/30/18 at 12:45 Lurasidone HCl (Latuda) 20 mg BID PO ; Start 04/28/18 at 21:00; Status Cancel Lurasidone HCl (Latuda) 40 mg DAILY@08 PO ; Start 05/02/18 at 08:00 Magnesium Hydroxide (Milk Of Magnesia) 30 ml DAILYPRN PRN PO CONSTIPATION Last administered on 05/01/18 06:01; Start 04/24/18 at 14:00 Nicotine (Nicoderm Cq 21mg) 1 patch DAILY TD Last administered on 05/01/18 08:24; Start 04/26/18 at 09:00 Olanzapine (ZyPREXA ZYDIS) 10 mg Q6HP PRN PO ANXIETY/AGITATION; Start 04/30/18 at 12:45 Ondansetron HCl (Zofran Odt) 4 mg Q6H PRN PO NAUSEA Last administered on 04/30/18 06:56; Start 04/24/18 at 18:45 Oxcarbazepine (Trileptal) 150 mg BID PO ; Start 04/26/18 at 21:00; Stop 04/28/18 at 11:20; Status DC Oxcarbazepine (Trileptal) 150 mg QAM PO ; Start 04/25/18 at 09:00; Stop 04/26/18 at 16:04; Status DC Psyllium Hydrophilic Mucilloid (Metamucil) 1 pkt BID PO Last administered on 04/25/18at 11:25; Start 04/25/18 at 09:00 Quetiapine Fumarate (SEROquel) 50 mg DAILY@1500 PO Last administered on 04/29/18at 15:43; Start 04/28/18 at 15:00; Stop 05/01/18 at 15:59; Status DC Quetiapine Fumarate (SEROquel) 50 mg QAM PO Last administered on 05/01/18at 08:20; Start 04/29/18 at 09:00 Quetiapine Fumarate (SEROquel) 100 mg QAM PO ; Start 04/28/18 at 09:00; Stop 04/28/18 at 12:01; Status DC Quetiapine Fumarate (SEROquel) 150 mg DAILY@1500 PO ; Start 04/28/18 at 15:00; Status Cancel Quetiapine Fumarate (SEROquel) 150 mg QHS PO Last administered on 04/27/18at 00:09; Start 04/26/18 at 21:00; Stop 04/27/18 at 19:45; Status DC Quetiapine Fumarate (SEROquel) 200 mg QHS PO Last administered on 04/27/18at 20:29; Start 04/27/18 at 21:00; Stop 04/28/18 at 11:21; Status DC Quetiapine Fumarate (SEROquel) 250 mg QHS PO Last administered on 04/29/18at 21:01; Start 04/28/18 at 21:00; Stop 05/01/18 at 15:59; Status DC Sucralfate (Carafate Suspension) 1 gm ACHS PO Last administered on 05/01/18at 16:37; Start 04/24/18 at 21:00 Trazodone HCl (Desyrel) 50 mg QHSP PRN PO INSOMNIA; Start 04/24/18 at 14:00; Status Cancel Allergies Coded Allergies: Aripiprazole (Unverified Allergy, Unknown, 01/13/13) Carbitol (Unverified Allergy, Unknown, 01/13/13) Fluphenazine (Unverified Allergy, Unknown, 01/13/13) [place] (Unverified Allergy, Unknown, 01/13/13) Meperidine (Unverified Allergy, Unknown, 01/13/13) Metoclopramide (Unverified Allergy, Unknown, 01/13/13) Olanzapine (Unverified Allergy, Unknown, 01/13/13) Penicillins (Unverified Allergy, Unknown, 01/13/13) Ranitidine (Unverified Allergy, Unknown, 01/13/13) Risperidone (Unverified Allergy, Unknown, 01/13/13) Sertraline (Unverified Allergy, Unknown, 01/13/13) Valproic Acid (Unverified Allergy, Unknown, 01/13/13) Acetaminophen (Unverified Adverse Reaction, Intermediate, PT Hx hep C, hep B, 04/24/18) Haloperidol (Verified Adverse Reaction, Intermediate, makes me go crazy, 04/24/18) BRENNA FLEMING MD May 01, 2018 17:34
[2018-05-01 18:00] VITALS: BP 134/90
[2018-05-01] MEDS ORDERED: diphenhydrAMINE 25 MG CAP PO ONE (20:30)
[2018-05-01] MEDS: ONDANSETRON 4 MG ORAL DISINTEGRATING TAB (Q0162 PER 1MG) PO PRN (22:56)
[2018-05-02 06:34] VITALS: BP 139/91
[2018-05-02] MEDS: SUCRALFATE SUSP 1GM/10ML UD PO SCH ×4 (06:40→22:11)
[2018-05-02] MEDS: LURASIDONE HCL 40 MG TAB (LATUDA) PO SCH (08:00)
[2018-05-02] MEDS: IBUPROFEN 400 MG TAB PO PRN ×2 (08:50→22:11)
[2018-05-02] MEDS: LORazepam 2 MG TAB PO PRN (08:50)
[2018-05-02] MEDS: ONDANSETRON 4 MG ORAL DISINTEGRATING TAB (Q0162 PER 1MG) PO PRN ×2 (08:51→17:43)
[2018-05-02] MEDS: NICOTINE 21MG/24HR 1 EA TRANSDERMAL TD SCH (08:51)
[2018-05-02] MEDS: QUEtiapine FUMARATE 50 MG TAB PO SCH (08:53)
[2018-05-02] MEDS: METAMUCIL (PSYLLIUM) PACKET PO SCH ×2 (08:54→21:00)
[2018-05-02] MEDS: ALBUTEROL 90 MCG/ACT 8GM HFA INHALER INH PRN ×3 (10:57→22:45)
[2018-05-02] MEDS: clonazePAM 1 MG TAB PO SCH ×3 (12:48→22:11)
[2018-05-02] MEDS ORDERED: TUBERCULIN PPD 5 UNITS/0.1 ML ID ONE (14:00)
--- NOTE | 2018-05-02 16:10 | MHIPNPDOC ---
[facility] Progress Note Progress Note DATE OF SERVICE: 05/02/18 HISTORY: As per Dr. Oliver: " CHIEF COMPLAINT: "I have a problem with my boyfriend, I don't want to live with him." HISTORY OF PRESENT ILLNESS: The patient was brought by the police as her called the police because for the last two weeks the patient has been manic. She is on prednisone for her hepatitis C. She is reportedly all around the place, cleaning her house. She reports that she feels like she is on speed. It is difficult to follow her as the patient is very tangential, circumstantial, and there is flight of ideas. The patient reports she has been allergic to most of the medications. She also reports she took herself off from Prozac as it was not helping her. She has started taking cannabidiol (CBD) oil which helps her mood as per the patient. Currently denies any suicidal or homicidal ideas." VITAL SIGNS: See below. NEW TEST RESULTS: See below CURRENT MEDICATIONS: See below. MENTAL STATUS EXAMINATION: Patient is a 47-year old female, who is alert, uncooperative, dressed in hospital clothes, holding a husky dog stuffed animal Speech: Is tangential, circumstantial, pressured, hyper verbal, less rapid, less pressured Thought processes including:circumstantial, tangential, flight of ideas, irrational Thought content: negative, angry thoughts, especially about her medications, that she doesn't like Description of abnormal or psychotic thoughts: Denies AV hallucinations, denies SI, denies HI but she is delusional Judgment: Poor Insight: Poor Orientation: x 3. Recent and remote memory: She remembers the names of previous psychiatrists at [facility], remembers what has happened recently. Attention span and concentration: Distractible, she's derailed. Mood: labile, irritable, angry Affect: congruent with mood. Labile, angry DIAGNOSES: 1. Bipolar disorder 2. Cannabis use disorder ASSESSMENT: Patient is non compliant with medication. Once again, she has not taken her Latuda, she demands to have Klonopin instead of Ativan because she doesn't like how Ativan makes her feel. Patient will have to go through a TOO. She is not insightful, has poor judgement, claims she is allergic to different medications ehen in reality she scratches herself until her skin appears red and irritated and then, she says is because she developed an allergic reaction. MANAGEMENT PLAN: will continue with the same treatment plan TIME SPENT: 20 minutes. Vital Signs Vital Signs Date Time Temp Pulse Resp B/P (MAP) Pulse Ox O2 Delivery O2 Flow Rate FiO2 05/02/18 06:34 98.7 87 16 139/91 (107) 04/30/18 09:15 Room Air 04/26/18 18:00 96 Current Medications Current Medications Al Hydrox/Mg Hydrox/Simethicone (Mylanta) 30 ml Q4HP PRN PO HEARTBURN/INDIGESTION Last administered on 04/30/18 08:44; Start 04/24/18 at 14:00 Albuterol Sulfate (Proventil, Ventolin Hfa) 2 puff Q4HP PRN INH SHORTNESS OF BREATH Last administered on 05/02/18 10:57; Start 04/24/18 at 18:45 Cetylpyridinium Chloride (Cepacol) 1 karoline Q2HP PRN PO COUGH; Start 05/01/18 at 18:30 Clonazepam (KlonoPIN) 1 mg BIDP PRN PO ANXIETY/AGITATION Last administered on 04/30/18 11:40; Start 04/24/18 at 18:45; Stop 04/30/18 at 23:38; Status DC Clonazepam (KlonoPIN) 1 mg QID PO Last administered on 05/02/18 12:48; Start 05/02/18 at 13:00 Home Med (Med Rec Complete!) ASDIRECTED XX ; Start 04/24/18 at 09:45; Stop 04/24/18 at 09:45; Status DC Ibuprofen (Advil) 400 mg Q8HP PRN PO PAIN OR DISCOMFORT Last administered on 05/02/18 08:50; Start 04/25/18 at 21:45 Lorazepam (Ativan) 2 mg Q6HP PRN PO ANXIETY/AGITATION Last administered on 05/02/18 08:50; Start 04/30/18 at 12:45; Stop 05/02/18 at 09:27; Status DC Lurasidone HCl (Latuda) 20 mg BID PO ; Start 04/28/18 at 21:00; Status Cancel Lurasidone HCl (Latuda) 40 mg DAILY@08 PO ; Start 05/02/18 at 08:00 Magnesium Hydroxide (Milk Of Magnesia) 30 ml DAILYPRN PRN PO CONSTIPATION Last administered on 05/01/18at 06:01; Start 04/24/18 at 14:00 Nicotine (Nicoderm Cq 21mg) 1 patch DAILY TD Last administered on 05/02/18at 08:51; Start 04/26/18 at 09:00 Non-Formulary Medication ( See Comment Field Below ) SEE COMMENTS SECTION 1T@10 XX ; Start 05/04/18 at 10:00; Stop 05/05/18 at 09:59; Status UNV Olanzapine (ZyPREXA ZYDIS) 10 mg Q6HP PRN PO ANXIETY/AGITATION; Start 04/30/18 at 12:45 Ondansetron HCl (Zofran Odt) 4 mg Q6H PRN PO NAUSEA Last administered on 05/02/18at 08:51; Start 04/24/18 at 18:45 Oxcarbazepine (Trileptal) 150 mg BID PO ; Start 04/26/18 at 21:00; Stop 04/28/18 at 11:20; Status DC Oxcarbazepine (Trileptal) 150 mg QAM PO ; Start 04/25/18 at 09:00; Stop 04/26/18 at 16:04; Status DC Psyllium Hydrophilic Mucilloid (Metamucil) 1 pkt BID PO Last administered on 04/25/18at 11:25; Start 04/25/18 at 09:00 Quetiapine Fumarate (SEROquel) 50 mg DAILY@1500 PO Last administered on 04/29/18at 15:43; Start 04/28/18 at 15:00; Stop 05/01/18 at 15:59; Status DC Quetiapine Fumarate (SEROquel) 50 mg QAM PO Last administered on 05/01/18at 08:20; Start 04/29/18 at 09:00 Quetiapine Fumarate (SEROquel) 100 mg QAM PO ; Start 04/28/18 at 09:00; Stop 04/28/18 at 12:01; Status DC Quetiapine Fumarate (SEROquel) 150 mg DAILY@1500 PO ; Start 04/28/18 at 15:00; Status Cancel Quetiapine Fumarate (SEROquel) 150 mg QHS PO Last administered on 04/27/18 00:09; Start 04/26/18 at 21:00; Stop 04/27/18 at 19:45; Status DC Quetiapine Fumarate (SEROquel) 200 mg QHS PO Last administered on 04/27/18at 20:29; Start 04/27/18 at 21:00; Stop 04/28/18 at 11:21; Status DC Quetiapine Fumarate (SEROquel) 250 mg QHS PO Last administered on 04/29/18at 21:01; Start 04/28/18 at 21:00; Stop 05/01/18 at 15:59; Status DC Sucralfate (Carafate Suspension) 1 gm ACHS PO Last administered on 05/02/18at 11:54; Start 04/24/18 at 21:00 Trazodone HCl (Desyrel) 50 mg QHSP PRN PO INSOMNIA; Start 04/24/18 at 14:00; Status Cancel Allergies Coded Allergies: Aripiprazole (Unverified Allergy, Unknown, 01/13/13) Carbitol (Unverified Allergy, Unknown, 01/13/13) Fluphenazine (Unverified Allergy, Unknown, 01/13/13) [place] (Unverified Allergy, Unknown, 01/13/13) Meperidine (Unverified Allergy, Unknown, 01/13/13) Metoclopramide (Unverified Allergy, Unknown, 01/13/13) Olanzapine (Unverified Allergy, Unknown, 01/13/13) Penicillins (Unverified Allergy, Unknown, 01/13/13) Ranitidine (Unverified Allergy, Unknown, 01/13/13) Risperidone (Unverified Allergy, Unknown, 01/13/13) Sertraline (Unverified Allergy, Unknown, 01/13/13) Valproic Acid (Unverified Allergy, Unknown, 01/13/13) Acetaminophen (Unverified Adverse Reaction, Intermediate, PT Hx hep C, hep B, 04/24/18) Haloperidol (Verified Adverse Reaction, Intermediate, makes me go crazy, 04/24/18) BRENNA FLEMING MD May 02, 2018 16:10
[2018-05-02 18:00] VITALS: BP 151/90
--- NOTE | 2018-05-02 18:50 | NUR ---
Seen for confirmatory consult, see Certificate of Examining Physician.
[2018-05-02] MEDS: MOM 30ML SUSPENSION UDC PO PRN (20:43)
[2018-05-02] MEDS: CEPACOL LOZENGE PO PRN ×2 (20:45→23:39)
[2018-05-02] MEDS: BENEFIBER PO SCH (22:12)
[2018-05-02] MEDS ORDERED: diphenhydrAMINE 50 MG CAP PO ONE (22:45)
[2018-05-03] MEDS: ONDANSETRON 4 MG ORAL DISINTEGRATING TAB (Q0162 PER 1MG) PO PRN ×2 (00:06→07:20)
[2018-05-03] MEDS: MAALOX 30 ML SUSP *UDC PO PRN (04:50)
[2018-05-03] MEDS: ALBUTEROL 90 MCG/ACT 8GM HFA INHALER INH PRN ×4 (04:53→20:23)
[2018-05-03] MEDS: SUCRALFATE SUSP 1GM/10ML UD PO SCH ×4 (06:27→21:59)
[2018-05-03 06:47] VITALS: BP 130/73
[2018-05-03] MEDS: LURASIDONE HCL 40 MG TAB (LATUDA) PO SCH (08:00)
[2018-05-03] MEDS: QUEtiapine FUMARATE 50 MG TAB PO SCH ×2 (08:10→13:27)
[2018-05-03] MEDS: NICOTINE 21MG/24HR 1 EA TRANSDERMAL TD SCH (08:13)
[2018-05-03] MEDS: BENEFIBER PO SCH ×2 (08:13→21:59)
[2018-05-03] MEDS: clonazePAM 1 MG TAB PO SCH ×4 (08:14→20:23)
[2018-05-03] MEDS: CEPACOL LOZENGE PO PRN ×2 (08:15→20:23)
[2018-05-03 18:00] VITALS: BP 130/80
--- NOTE | 2018-05-03 20:07 | MHIPNPDOC ---
[facility] Progress Note Progress Note DATE OF SERVICE: 05/03/18 HISTORY: As per Dr. Oliver: " CHIEF COMPLAINT: "I have a problem with my boyfriend, I don't want to live with him." HISTORY OF PRESENT ILLNESS: The patient was brought by the police as her called the police because for the last two weeks the patient has been manic. She is on prednisone for her hepatitis C. She is reportedly all around the place, cleaning her house. She reports that she feels like she is on speed. It is difficult to follow her as the patient is very tangential, circumstantial, and there is flight of ideas. The patient reports she has been allergic to most of the medications. She also reports she took herself off from Prozac as it was not helping her. She has started taking cannabidiol (CBD) oil which helps her mood as per the patient. Currently denies any suicidal or homicidal ideas." VITAL SIGNS: See below. NEW TEST RESULTS: See below CURRENT MEDICATIONS: See below. MENTAL STATUS EXAMINATION: Patient is a 47-year old female, who is alert, uncooperative, dressed in hospital clothes, holding a husky dog stuffed animal Speech: Is tangential, circumstantial, pressured, hyper verbal, less rapid, less pressured Thought processes including:circumstantial, tangential, flight of ideas, irrational Thought content: negative, angry thoughts, especially about her medications, that she doesn't like Description of abnormal or psychotic thoughts: Denies AV hallucinations, denies SI, denies HI but she is delusional Judgment: Poor Insight: Poor Orientation: x 3. Recent and remote memory: She remembers the names of previous psychiatrists at [facility], remembers what has happened recently. Attention span and concentration: Distractible, she's derailed. Mood: labile, irritable, angry Affect: congruent with mood. Labile, angry DIAGNOSES: 1. Bipolar disorder 2. Cannabis use disorder ASSESSMENT: patient is non compliant medications, she promised last night she would take them but she hasn't. She continues to be manic, derailed. MANAGEMENT PLAN: will continue with the same treatment plan TIME SPENT: 20 minutes. Vital Signs Vital Signs Date Time Temp Pulse Resp B/P (MAP) Pulse Ox O2 Delivery O2 Flow Rate FiO2 05/03/18 18:00 98.9 80 16 130/80 (97) 04/30/18 09:15 Room Air Current Medications Current Medications Al Hydrox/Mg Hydrox/Simethicone (Mylanta) 30 ml Q4HP PRN PO HEARTBURN/INDIGESTION Last administered on 05/03/18 04:50; Start 04/24/18 at 14:00 Albuterol Sulfate (Proventil, Ventolin Hfa) 2 puff Q4HP PRN INH SHORTNESS OF BREATH Last administered on 05/03/18 17:05; Start 04/24/18 at 18:45 Cetylpyridinium Chloride (Cepacol) 1 karoline Q2HP PRN PO COUGH Last administered on 05/03/18 08:15; Start 05/01/18 at 18:30 Clonazepam (KlonoPIN) 1 mg BIDP PRN PO ANXIETY/AGITATION Last administered on 04/30/18 11:40; Start 04/24/18 at 18:45; Stop 04/30/18 at 23:38; Status DC Clonazepam (KlonoPIN) 1 mg QID PO Last administered on 05/03/18 18:11; Start 05/02/18 at 13:00 Home Med (Med Rec Complete!) ASDIRECTED XX ; Start 04/24/18 at 09:45; Stop 04/24/18 at 09:45; Status DC Ibuprofen (Advil) 400 mg Q8HP PRN PO PAIN OR DISCOMFORT Last administered on 22:11; Start 04/25/18 at 21:45 Lorazepam (Ativan) 2 mg Q6HP PRN PO ANXIETY/AGITATION Last administered on 05/02/18 08:50; Start 04/30/18 at 12:45; Stop 05/02/18 at 09:27; Status DC Lurasidone HCl (Latuda) 20 mg BID PO ; Start 04/28/18 at 21:00; Status Cancel Lurasidone HCl (Latuda) 40 mg DAILY@08 PO ; Start 05/02/18 at 08:00 Magnesium Hydroxide (Milk Of Magnesia) 30 ml DAILYPRN PRN PO CONSTIPATION Last administered on 05/02/18 20:43; Start 04/24/18 at 14:00 Nicotine (Nicoderm Cq 21mg) 1 patch DAILY TD Last administered on 1/9/19at 08:13; Start 04/26/18 at 09:00 Non-Formulary Medication ( See Comment Field Below ) SEE COMMENTS SECTION 1T@10 XX ; Start 05/04/18 at 10:00; Stop 05/05/18 at 09:59; Status UNV Olanzapine (ZyPREXA ZYDIS) 10 mg Q6HP PRN PO ANXIETY/AGITATION; Start 04/30/18 at 12:45 Ondansetron HCl (Zofran Odt) 4 mg Q6H PRN PO NAUSEA Last administered on at 07:20; Start 04/24/18 at 18:45 Oxcarbazepine (Trileptal) 150 mg BID PO ; Start 04/26/18 at 21:00; Stop 04/28/18 at 11:20; Status DC Oxcarbazepine (Trileptal) 150 mg QAM PO ; Start 04/25/18 at 09:00; Stop 04/26/18 at 16:04; Status DC Patient Own Medication (Patient'S Own Med) BENEFIBER PACKET: ADMINIS... BID PO Last administered on 05/03/18at 08:13; Start 05/02/18 at 21:00 Psyllium Hydrophilic Mucilloid (Metamucil) 1 pkt BID PO Last administered on 04/25/18at 11:25; Start 04/25/18 at 09:00; Stop 05/03/18 at 08:13; Status DC Quetiapine Fumarate (SEROquel) 50 mg DAILY@1500 PO Last administered on 04/29/18at 15:43; Start 04/28/18 at 15:00; Stop 05/01/18 at 15:59; Status DC Quetiapine Fumarate (SEROquel) 50 mg QAM PO Last administered on 05/03/18at 13:27; Start 04/29/18 at 09:00 Quetiapine Fumarate (SEROquel) 100 mg QAM PO ; Start 04/28/18 at 09:00; Stop 04/28/18 at 12:01; Status DC Quetiapine Fumarate (SEROquel) 150 mg DAILY@1500 PO ; Start 04/28/18 at 15:00; Status Cancel Quetiapine Fumarate (SEROquel) 150 mg QHS PO Last administered on 04/27/18 00:09; Start 04/26/18 at 21:00; Stop 04/27/18 at 19:45; Status DC Quetiapine Fumarate (SEROquel) 200 mg QHS PO Last administered on 04/27/18at 20:29; Start 04/27/18 at 21:00; Stop 04/28/18 at 11:21; Status DC Quetiapine Fumarate (SEROquel) 250 mg QHS PO Last administered on 04/29/18at 21:01; Start 04/28/18 at 21:00; Stop 05/01/18 at 15:59; Status DC Sucralfate (Carafate Suspension) 1 gm ACHS PO Last administered on 05/03/18at 17:05; Start 04/24/18 at 21:00 Trazodone HCl (Desyrel) 50 mg QHSP PRN PO INSOMNIA; Start 04/24/18 at 14:00; Status Cancel Allergies Coded Allergies: Aripiprazole (Unverified Allergy, Unknown, 01/13/13) Carbitol (Unverified Allergy, Unknown, 01/13/13) Fluphenazine (Unverified Allergy, Unknown, 01/13/13) [place] (Unverified Allergy, Unknown, 01/13/13) Meperidine (Unverified Allergy, Unknown, 01/13/13) Metoclopramide (Unverified Allergy, Unknown, 01/13/13) Olanzapine (Unverified Allergy, Unknown, 01/13/13) Penicillins (Unverified Allergy, Unknown, 01/13/13) Ranitidine (Unverified Allergy, Unknown, 01/13/13) Risperidone (Unverified Allergy, Unknown, 01/13/13) Sertraline (Unverified Allergy, Unknown, 01/13/13) Valproic Acid (Unverified Allergy, Unknown, 01/13/13) Acetaminophen (Unverified Adverse Reaction, Intermediate, PT Hx hep C, hep B, 04/24/18) Haloperidol (Verified Adverse Reaction, Intermediate, makes me go crazy, 04/24/18) BRENNA FLEMING MD May 03, 2018 20:07
[2018-05-03] MEDS: IBUPROFEN 400 MG TAB PO PRN (20:23)
[2018-05-03] MEDS: diphenhydrAMINE 50 MG CAP PO PRN (23:27)
[2018-05-04] MEDS: ONDANSETRON 4 MG ORAL DISINTEGRATING TAB (Q0162 PER 1MG) PO PRN ×2 (01:19→16:12)
[2018-05-04] MEDS: CEPACOL LOZENGE PO PRN ×3 (02:56→20:54)
[2018-05-04] MEDS: SUCRALFATE SUSP 1GM/10ML UD PO SCH ×4 (06:40→20:49)
[2018-05-04 07:28] VITALS: BP 115/61
[2018-05-04] MEDS: clonazePAM 1 MG TAB PO SCH ×4 (08:25→20:50)
[2018-05-04] MEDS: diphenhydrAMINE 50 MG CAP PO PRN (08:25)
[2018-05-04] MEDS: LURASIDONE HCL 40 MG TAB (LATUDA) PO SCH (08:25)
[2018-05-04] MEDS: BENEFIBER PO SCH ×2 (08:25→20:51)
[2018-05-04] MEDS: NICOTINE 21MG/24HR 1 EA TRANSDERMAL TD SCH (08:28)
[2018-05-04] MEDS ORDERED: PPD DOCUMENTATION ENTRY MISC XX SCH (10:00)
[2018-05-04] MEDS: IBUPROFEN 400 MG TAB PO PRN (10:45)
[2018-05-04] MEDS: ALBUTEROL 90 MCG/ACT 8GM HFA INHALER INH PRN ×3 (11:54→22:23)
--- NOTE | 2018-05-04 13:42 | MHIPNPDOC ---
[facility] Progress Note Progress Note DATE OF SERVICE: 05/04/18 HISTORY: As per Dr. Oliver: " "I have a problem with my boyfriend, I don't want to live with him." The patient was brought by the police as her called the police because for the last two weeks the patient has been manic. She is on prednisone for her hepatitis C. She is reportedly all around the place, cleaning her house. She reports that she feels like she is on speed. It is difficult to follow her as the patient is very tangential, circumstantial, and there is flight of ideas. The patient reports she has been allergic to most of the medications. She also reports she took herself off from Prozac as it was not helping her. She has started taking cannabidiol (CBD) oil which helps her mood as per the patient. Currently denies any suicidal or homicidal ideas." VITAL SIGNS: See below. NEW TEST RESULTS: CURRENT MEDICATIONS: See below. MENTAL STATUS EXAMINATION: Patient is a 47-year old female, who is alert, cooperative, dressed in hospital clothes, Speech: Is tangential, circumstantial, pressured, hyper verbal, less rapid, less pressured Thought processes including:circumstantial, tangential, flight of ideas, irrational Thought content: positive, happy about finding a medication that is helpful Description of abnormal or psychotic thoughts: Denies AV hallucinations, denies SI, denies HI but she is delusional Judgment: Poor Insight: Poor Orientation: Alert and oriented x 3. Recent and remote memory: Recalls previous admissions to [facility], remembers speaking with Dr. Park yesterday and openly expresses how much she enjoys having her as her doctor. Attention span and concentration: Distractible, she's derailed. Mood: elevated Affect: consistent with conversation DIAGNOSES: 1. Bipolar Disorder 2. Cannabis Use Disorder ASSESSMENT: Patient states that she has felt much better since beginning her Latuda and agrees to take it as prescribed. She says that it helps her remain calm and to think clearer. She says that she is doing better than she was yesterday. Bridget is notably cheerful. She really enjoys being in the unit and around people that do not make fun of her. MANAGEMENT PLAN: Continue with plan mentioned above. TIME SPENT: 15 minutes Vital Signs Vital Signs Date Time Temp Pulse Resp B/P (MAP) Pulse Ox O2 Delivery O2 Flow Rate FiO2 05/04/18 09:49 Room Air 05/04/18 07:28 98.9 106 16 115/61 (79) Current Medications Current Medications Al Hydrox/Mg Hydrox/Simethicone (Mylanta) 30 ml Q4HP PRN PO HEARTBURN/INDIGESTION Last administered on 05/03/18 04:50; Start 04/24/18 at 14:00 Albuterol Sulfate (Proventil, Ventolin Hfa) 2 puff Q4HP PRN INH SHORTNESS OF BREATH Last administered on 05/04/18 11:54; Start 04/24/18 at 18:45 Cetylpyridinium Chloride (Cepacol) 1 karoline Q2HP PRN PO COUGH Last administered on 05/04/18 06:34; Start 05/01/18 at 18:30 Clonazepam (KlonoPIN) 1 mg BIDP PRN PO ANXIETY/AGITATION Last administered on 04/30/18 11:40; Start 04/24/18 at 18:45; Stop 04/30/18 at 23:38; Status DC Clonazepam (KlonoPIN) 1 mg QID PO Last administered on 05/04/18 12:55; Start 05/02/18 at 13:00 Diphenhydramine HCl (Benadryl) 50 mg Q6HP PRN PO ITCHING Last administered on 05/04/18 08:25; Start 05/03/18 at 23:30 Home Med (Med Rec Complete!) ASDIRECTED XX ; Start 04/24/18 at 09:45; Stop 04/24/18 at 09:45; Status DC Ibuprofen (Advil) 400 mg Q8HP PRN PO PAIN OR DISCOMFORT Last administered on 05/04/18 10:45; Start 04/25/18 at 21:45 Lorazepam (Ativan) 2 mg Q6HP PRN PO ANXIETY/AGITATION Last administered on 05/02/18 08:50; Start 04/30/18 at 12:45; Stop 05/02/18 at 09:27; Status DC Lurasidone HCl (Latuda) 20 mg BID PO ; Start 04/28/18 at 21:00; Status Cancel Lurasidone HCl (Latuda) 40 mg DAILY@08 PO Last administered on 05/04/18 08:25; Start 05/02/18 at 08:00 Magnesium Hydroxide (Milk Of Magnesia) 30 ml DAILYPRN PRN PO CONSTIPATION Last administered on 05/02/18 20:43; Start 04/24/18 at 14:00 Nicotine (Nicoderm Cq 21mg) 1 patch DAILY TD Last administered on 05/04/18 08:28; Start 04/26/18 at 09:00 Non-Formulary Medication ( See Comment Field Below ) SEE COMMENTS SECTION 1T@10 XX ; Start 05/04/18 at 10:00; Stop 05/05/18 at 09:59; Status UNV Olanzapine (ZyPREXA ZYDIS) 10 mg Q6HP PRN PO ANXIETY/AGITATION; Start 04/30/18 at 12:45 Ondansetron HCl (Zofran Odt) 4 mg Q6H PRN PO NAUSEA Last administered on 05/04/18 01:19; Start 04/24/18 at 18:45 Oxcarbazepine (Trileptal) 150 mg BID PO ; Start 04/26/18 at 21:00; Stop 04/28/18 at 11:20; Status DC Oxcarbazepine (Trileptal) 150 mg QAM PO ; Start 04/25/18 at 09:00; Stop 04/26/18 at 16:04; Status DC Patient Own Medication (Patient'S Own Med) BENEFIBER PACKET: ADMINIS... BID PO Last administered on 05/04/18at 08:25; Start 05/02/18 at 21:00 Psyllium Hydrophilic Mucilloid (Metamucil) 1 pkt BID PO Last administered on 04/25/18at 11:25; Start 04/25/18 at 09:00; Stop 05/03/18 at 08:13; Status DC Quetiapine Fumarate (SEROquel) 50 mg DAILY@1500 PO Last administered on 04/29/18 15:43; Start 04/28/18 at 15:00; Stop 05/01/18 at 15:59; Status DC Quetiapine Fumarate (SEROquel) 50 mg QAM PO Last administered on 05/03/18at 13:27; Start 04/29/18 at 09:00; Stop 05/03/18 at 21:24; Status DC Quetiapine Fumarate (SEROquel) 100 mg QAM PO ; Start 04/28/18 at 09:00; Stop 04/28/18 at 12:01; Status DC Quetiapine Fumarate (SEROquel) 150 mg DAILY@1500 PO ; Start 04/28/18 at 15:00; Status Cancel Quetiapine Fumarate (SEROquel) 150 mg QHS PO Last administered on 04/27/18at 00:09; Start 04/26/18 at 21:00; Stop 04/27/18 at 19:45; Status DC Quetiapine Fumarate (SEROquel) 200 mg QHS PO Last administered on 04/27/18at 20:29; Start 04/27/18 at 21:00; Stop 04/28/18 at 11:21; Status DC Quetiapine Fumarate (SEROquel) 250 mg QHS PO Last administered on 04/29/18at 21:01; Start 04/28/18 at 21:00; Stop 05/01/18 at 15:59; Status DC Sucralfate (Carafate Suspension) 1 gm ACHS PO Last administered on 05/04/18at 11:54; Start 04/24/18 at 21:00 Trazodone HCl (Desyrel) 50 mg QHSP PRN PO INSOMNIA; Start 04/24/18 at 14:00; Status Cancel Allergies Coded Allergies: Aripiprazole (Unverified Allergy, Unknown, 01/13/13) Carbitol (Unverified Allergy, Unknown, 01/13/13) Fluphenazine (Unverified Allergy, Unknown, 01/13/13) [place] (Unverified Allergy, Unknown, 01/13/13) Meperidine (Unverified Allergy, Unknown, 01/13/13) Metoclopramide (Unverified Allergy, Unknown, 01/13/13) Olanzapine (Unverified Allergy, Unknown, 01/13/13) Penicillins (Unverified Allergy, Unknown, 01/13/13) Ranitidine (Unverified Allergy, Unknown, 01/13/13) Risperidone (Unverified Allergy, Unknown, 01/13/13) Sertraline (Unverified Allergy, Unknown, 01/13/13) Valproic Acid (Unverified Allergy, Unknown, 01/13/13) Acetaminophen (Unverified Adverse Reaction, Intermediate, PT Hx hep C, hep B, 04/24/18) Haloperidol (Verified Adverse Reaction, Intermediate, makes me go crazy, 04/24/18) GME ATTESTATION GME ATTESTATION My faculty preceptor for this patient encounter was physically present during the encounter and was fully available. All aspects of the patient interview, examination, medical decision making process, and medical care plan development were reviewed and approved by the faculty preceptor. The faculty preceptor is aware and concurs with the plan as stated in the body of this note and will attest to such by his/her cosignature. OXANA ENGLE DO May 04, 2018 13:42
[2018-05-04] MEDS ORDERED: PPD DOCUMENTATION ENTRY MISC XX ONE (14:00)
[2018-05-04 18:00] VITALS: BP 136/88
[2018-05-05] MEDS: CEPACOL LOZENGE PO PRN ×3 (00:46→20:16)
[2018-05-05] MEDS: IBUPROFEN 400 MG TAB PO PRN ×3 (00:47→20:09)
[2018-05-05] MEDS: diphenhydrAMINE 50 MG CAP PO PRN ×2 (00:48→12:36)
[2018-05-05 06:00] VITALS: BP 140/80
[2018-05-05] MEDS: SUCRALFATE SUSP 1GM/10ML UD PO SCH ×4 (07:01→20:09)
[2018-05-05] MEDS: LURASIDONE HCL 40 MG TAB (LATUDA) PO SCH (08:00)
[2018-05-05] MEDS: BENEFIBER PO SCH ×2 (08:02→20:10)
[2018-05-05] MEDS: NICOTINE 21MG/24HR 1 EA TRANSDERMAL TD SCH (08:04)
[2018-05-05] MEDS: clonazePAM 1 MG TAB PO SCH ×4 (08:05→20:08)
[2018-05-05] MEDS: ALBUTEROL 90 MCG/ACT 8GM HFA INHALER INH PRN ×2 (08:08→20:16)
[2018-05-05] MEDS: diphenhydrAMINE 25 MG CAP PO SCH ×2 (16:00→20:09)
[2018-05-05] MEDS: ARIPiprazole 10 MG TAB PO SCH (20:12)
[2018-05-06] MEDS: diphenhydrAMINE 50 MG CAP PO PRN ×3 (01:08→23:49)
[2018-05-06] MEDS: ONDANSETRON 4 MG ORAL DISINTEGRATING TAB (Q0162 PER 1MG) PO PRN (01:46)
[2018-05-06] MEDS ORDERED: LORazepam 1 MG TAB PO ONE (02:00)
[2018-05-06] MEDS: CEPACOL LOZENGE PO PRN ×2 (03:47→21:07)
[2018-05-06 06:00] VITALS: BP 118/82
[2018-05-06] MEDS: SUCRALFATE SUSP 1GM/10ML UD PO SCH ×4 (06:45→20:48)
[2018-05-06 08:00] VITALS: BP 135/72
[2018-05-06] MEDS: LURASIDONE HCL 40 MG TAB (LATUDA) PO SCH (08:00)
[2018-05-06] MEDS: BENEFIBER PO SCH ×2 (08:38→20:46)
[2018-05-06] MEDS: ALBUTEROL 90 MCG/ACT 8GM HFA INHALER INH PRN ×3 (08:40→23:50)
[2018-05-06] MEDS: diphenhydrAMINE 25 MG CAP PO SCH ×3 (08:40→20:47)
[2018-05-06] MEDS: clonazePAM 1 MG TAB PO SCH ×4 (08:40→20:47)
[2018-05-06] MEDS: NICOTINE 21MG/24HR 1 EA TRANSDERMAL TD SCH (08:41)
[2018-05-06 18:00] VITALS: BP 129/82
[2018-05-06] MEDS: ARIPiprazole 10 MG TAB PO SCH (20:42)
[2018-05-06] MEDS: IBUPROFEN 400 MG TAB PO PRN (21:08)
--- NOTE | 2018-05-06 21:40 | MHIPNPDOC ---
[facility] Progress Note Progress Note DATE OF SERVICE: 05/05/18 HISTORY: As per Dr. Oliver: " "I have a problem with my boyfriend, I don't want to live with him." The patient was brought by the police as her called the police because for the last two weeks the patient has been manic. She is on prednisone for her hepatitis C. She is reportedly all around the place, cleaning her house. She reports that she feels like she is on speed. It is difficult to follow her as the patient is very tangential, circumstantial, and there is flight of ideas. The patient reports she has been allergic to most of the medications. She also reports she took herself off from Prozac as it was not helping her. She has started taking cannabidiol (CBD) oil which helps her mood as per the patient. Currently denies any suicidal or homicidal ideas." VITAL SIGNS: See below. NEW TEST RESULTS: CURRENT MEDICATIONS: See below. MENTAL STATUS EXAMINATION: Patient is a 47-year old female, who is alert, cooperative, dressed in hospital clothes, Speech: Is tangential, circumstantial, pressured, hyper verbal, less rapid, less pressured Thought processes including:circumstantial, tangential, flight of ideas, irrational Thought content: positive, happy about finding a medication that is helpful Description of abnormal or psychotic thoughts: Denies AV hallucinations, denies SI, denies HI but she is delusional Judgment: Poor Insight: Poor Orientation: Alert and oriented x 3. Recent and remote memory: Patient recalls that she said she was going to take her medication (Latuda) as she has done it before, when she has said she was going to take other medications. She didn't take her Latuda. she remembers being awake for most of the night Attention span and concentration: Distractible, she's derailed. Mood: elevated Affect: consistent with conversation DIAGNOSES: 1. Bipolar Disorder 2. Cannabis Use Disorder ASSESSMENT: Patient didn't take Latda as she had agreed and today she is refusing to take other medications that would be able to help her. she didn't sleep last night. She is tired, she continues to be manic. She will have to go to Court for a TOO. MANAGEMENT PLAN: Continue with plan mentioned above. TIME SPENT: 15 minutes Vital Signs Vital Signs Date Time Temp Pulse Resp B/P (MAP) Pulse Ox O2 Delivery O2 Flow Rate FiO2 05/06/18 18:00 98.0 96 20 129/82 (98) 05/06/18 08:00 Room Air Laboratory Data 24H Labs Laboratory Tests 2 05/06/18 08:09: Bedside Glucose (Misc Panel) 108H Current Medications Current Medications Al Hydrox/Mg Hydrox/Simethicone (Mylanta) 30 ml Q4HP PRN PO HEARTBURN/INDIGESTION Last administered on 05/03/18 04:50; Start 04/24/18 at 14:00 Albuterol Sulfate (Proventil, Ventolin Hfa) 2 puff Q4HP PRN INH SHORTNESS OF BREATH Last administered on 05/06/18 17:50; Start 04/24/18 at 18:45 Aripiprazole (AbiLIFY) 10 mg QHS PO ; Start 05/05/18 at 21:00 Cetylpyridinium Chloride (Cepacol) 1 karoline Q2HP PRN PO COUGH Last administered on 05/06/18 21:07; Start 05/01/18 at 18:30 Clonazepam (KlonoPIN) 1 mg BIDP PRN PO ANXIETY/AGITATION Last administered on 04/30/18 11:40; Start 04/24/18 at 18:45; Stop 04/30/18 at 23:38; Status DC Clonazepam (KlonoPIN) 1 mg QID PO Last administered on 05/06/18 20:47; Start 05/02/18 at 13:00 Diphenhydramine HCl (Benadryl) 25 mg TID PO Last administered on 05/06/18 20:47; Start 05/05/18 at 16:00 Diphenhydramine HCl (Benadryl) 50 mg Q6HP PRN PO ITCHING Last administered on 05/06/18 11:07; Start 05/03/18 at 23:30 Home Med (Med Rec Complete!) ASDIRECTED XX ; Start 04/24/18 at 09:45; Stop 04/24/18 at 09:45; Status DC Ibuprofen (Advil) 400 mg Q8HP PRN PO PAIN OR DISCOMFORT Last administered on 21:08; Start 04/25/18 at 21:45 Lorazepam (Ativan) 2 mg Q6HP PRN PO ANXIETY/AGITATION Last administered on 05/02/18 08:50; Start 04/30/18 at 12:45; Stop 05/02/18 at 09:27; Status DC Lurasidone HCl (Latuda) 20 mg BID PO ; Start 04/28/18 at 21:00; Status Cancel Lurasidone HCl (Latuda) 40 mg DAILY@08 PO Last administered on 05/04/18at 08:25; Start 05/02/18 at 08:00 Magnesium Hydroxide (Milk Of Magnesia) 30 ml DAILYPRN PRN PO CONSTIPATION Last administered on 05/02/18 20:43; Start 04/24/18 at 14:00 Nicotine (Nicoderm Cq 21mg) 1 patch DAILY TD Last administered on 05/06/18 08:41; Start 04/26/18 at 09:00 Non-Formulary Medication ( See Comment Field Below ) SEE COMMENTS SECTION 1T@10 XX ; Start 05/04/18 at 10:00; Stop 05/05/18 at 09:59; Status UNV Olanzapine (ZyPREXA ZYDIS) 10 mg Q6HP PRN PO ANXIETY/AGITATION; Start 04/30/18 at 12:45 Ondansetron HCl (Zofran Odt) 4 mg Q6H PRN PO NAUSEA Last administered on 05/06/18at 01:46; Start 04/24/18 at 18:45 Oxcarbazepine (Trileptal) 150 mg BID PO ; Start 04/26/18 at 21:00; Stop 04/28/18 at 11:20; Status DC Oxcarbazepine (Trileptal) 150 mg QAM PO ; Start 04/25/18 at 09:00; Stop 04/26/18 at 16:04; Status DC Patient Own Medication (Patient'S Own Med) BENEFIBER PACKET: ADMINIS... BID PO Last administered on 05/06/18at 20:46; Start 05/02/18 at 21:00 Psyllium Hydrophilic Mucilloid (Metamucil) 1 pkt BID PO Last administered on 04/25/18at 11:25; Start 04/25/18 at 09:00; Stop 05/03/18 at 08:13; Status DC Quetiapine Fumarate (SEROquel) 50 mg DAILY@1500 PO Last administered on 04/29/18at 15:43; Start 04/28/18 at 15:00; Stop 05/01/18 at 15:59; Status DC Quetiapine Fumarate (SEROquel) 50 mg QAM PO Last administered on 05/03/18at 13:27; Start 04/29/18 at 09:00; Stop 05/03/18 at 21:24; Status DC Quetiapine Fumarate (SEROquel) 100 mg QAM PO ; Start 04/28/18 at 09:00; Stop 04/28/18 at 12:01; Status DC Quetiapine Fumarate (SEROquel) 150 mg DAILY@1500 PO ; Start 04/28/18 at 15:00; Status Cancel Quetiapine Fumarate (SEROquel) 150 mg QHS PO Last administered on 04/27/18at 00:09; Start 04/26/18 at 21:00; Stop 04/27/18 at 19:45; Status DC Quetiapine Fumarate (SEROquel) 200 mg QHS PO Last administered on 04/27/18at 20:29; Start 04/27/18 at 21:00; Stop 04/28/18 at 11:21; Status DC Quetiapine Fumarate (SEROquel) 250 mg QHS PO Last administered on 04/29/18at 21:01; Start 04/28/18 at 21:00; Stop 05/01/18 at 15:59; Status DC Sucralfate (Carafate Suspension) 1 gm ACHS PO Last administered on 05/06/18at 20:48; Start 04/24/18 at 21:00 Trazodone HCl (Desyrel) 50 mg QHSP PRN PO INSOMNIA; Start 04/24/18 at 14:00; Status Cancel Allergies Coded Allergies: Aripiprazole (Unverified Allergy, Unknown, 05/05/18) This reaction was never verified. It is SUSPECT. Carbitol (Unverified Allergy, Unknown, 01/13/13) Fluphenazine (Unverified Allergy, Unknown, 05/05/18) UNVERIFIED REACTION. IT IS SUSPECT [place] (Unverified Allergy, Unknown, 05/05/18) UNVERIFIED REACTION. IT IS SUSPECT. Meperidine (Unverified Allergy, Unknown, 01/13/13) Metoclopramide (Unverified Allergy, Unknown, 01/13/13) Olanzapine (Unverified Allergy, Unknown, 05/05/18) This is an unverified reaction. It is SUSPECT Penicillins (Unverified Allergy, Unknown, 01/13/13) Ranitidine (Unverified Allergy, Unknown, 01/13/13) Risperidone (Unverified Allergy, Unknown, 05/05/18) Unverified reaction. It is SUSPECT. Sertraline (Unverified Allergy, Unknown, 05/05/18) Unverified reaction. It is SUSPECT Valproic Acid (Unverified Allergy, Unknown, 05/05/18) Unverified reaction. It is SUSPECT Acetaminophen (Unverified Adverse Reaction, Intermediate, PT Hx hep C, hep B, 04/24/18) Haloperidol (Verified Adverse Reaction, Intermediate, makes me go crazy, 05/05/18) uNVERIFIED REACTION. IT IS SUSPECT BRENNA FLEMING MD May 06, 2018 21:40
[2018-05-07] MEDS: ALBUTEROL 90 MCG/ACT 8GM HFA INHALER INH PRN ×2 (04:10→13:17)
[2018-05-07] MEDS: CEPACOL LOZENGE PO PRN ×3 (04:11→22:53)
[2018-05-07] MEDS: ONDANSETRON 4 MG ORAL DISINTEGRATING TAB (Q0162 PER 1MG) PO PRN ×2 (05:00→16:58)
[2018-05-07 06:00] VITALS: BP 140/86
[2018-05-07] MEDS ORDERED: HALOPERIDOL 5 MG TAB PO ONE (06:15)
[2018-05-07] MEDS ORDERED: HALOPERIDOL 5 MG/ML VIAL (J1630) IM ONE (06:15)
[2018-05-07] MEDS: SUCRALFATE SUSP 1GM/10ML UD PO SCH ×4 (06:30→21:04)
[2018-05-07] MEDS: diphenhydrAMINE 50 MG CAP PO PRN (06:31)
[2018-05-07] MEDS: LURASIDONE HCL 40 MG TAB (LATUDA) PO SCH (08:00)
[2018-05-07] MEDS: NICOTINE 21MG/24HR 1 EA TRANSDERMAL TD SCH (12:25)
[2018-05-07] MEDS: BENEFIBER PO SCH ×2 (12:25→21:04)
[2018-05-07] MEDS: clonazePAM 1 MG TAB PO SCH ×4 (12:25→21:04)
[2018-05-07] MEDS: diphenhydrAMINE 25 MG CAP PO SCH ×3 (12:26→21:04)
[2018-05-07 18:00] VITALS: BP 129/76
[2018-05-07] MEDS: ARIPiprazole 10 MG TAB PO SCH ×2 (21:00→21:04)
[2018-05-07] MEDS: MAALOX 30 ML SUSP *UDC PO PRN (21:09)
[2018-05-08] MEDS: CEPACOL LOZENGE PO PRN ×4 (01:09→17:55)
[2018-05-08] MEDS: IBUPROFEN 400 MG TAB PO PRN ×3 (01:11→22:13)
[2018-05-08] MEDS: ONDANSETRON 4 MG ORAL DISINTEGRATING TAB (Q0162 PER 1MG) PO PRN ×2 (03:24→11:07)
[2018-05-08] MEDS: ALBUTEROL 90 MCG/ACT 8GM HFA INHALER INH PRN ×3 (03:25→21:55)
[2018-05-08 06:20] VITALS: BP 117/64
[2018-05-08] MEDS: SUCRALFATE SUSP 1GM/10ML UD PO SCH ×4 (07:30→21:54)
[2018-05-08] MEDS: LURASIDONE HCL 40 MG TAB (LATUDA) PO SCH (08:00)
[2018-05-08] MEDS: diphenhydrAMINE 25 MG CAP PO SCH ×3 (11:07→21:54)
[2018-05-08] MEDS: clonazePAM 1 MG TAB PO SCH ×4 (11:07→21:54)
[2018-05-08] MEDS: NICOTINE 21MG/24HR 1 EA TRANSDERMAL TD SCH (11:08)
[2018-05-08] MEDS: BENEFIBER PO SCH ×2 (11:08→21:53)
[2018-05-08] MEDS: BENZOCAINE 10% 9GM TUBE (ANBESOL) MT SCH ×2 (13:00→16:09)
[2018-05-08] MEDS: MAALOX 30 ML SUSP *UDC PO PRN (14:54)
[2018-05-08] MEDS: FLUTICASONE PROP 0.05% NASAL SPRAY 16 GM (FLONASE) NARES PRN ×2 (16:11→21:58)
[2018-05-08 18:00] VITALS: BP 134/63
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
[2018-05-08] MEDS: ARIPiprazole 10 MG TAB PO SCH (21:00)
--- NOTE | 2018-05-08 21:03 | MHIPNPDOC ---
[facility] Progress Note Progress Note DATE OF SERVICE: 05/08/18 HISTORY: As per Dr. Oliver: " "I have a problem with my boyfriend, I don't want to live with him." The patient was brought by the police as her called the police because for the last two weeks the patient has been manic. She is on prednisone for her hepatitis C. She is reportedly all around the place, cleaning her house. She reports that she feels like she is on speed. It is difficult to follow her as the patient is very tangential, circumstantial, and there is flight of ideas. The patient reports she has been allergic to most of the medications. She also reports she took herself off from Prozac as it was not helping her. She has started taking cannabidiol (CBD) oil which helps her mood as per the patient. Currently denies any suicidal or homicidal ideas." VITAL SIGNS: See below. NEW TEST RESULTS: CURRENT MEDICATIONS: See below. MENTAL STATUS EXAMINATION: Patient is a 47-year old female, who is alert, cooperative, dressed in hospital clothes, Speech: Is tangential, circumstantial, pressured, hyper verbal, less rapid, less pressured Thought processes including:circumstantial, tangential, flight of ideas, irrational Thought content: she can't focus, she is derailed, she says she won't go back to her . Description of abnormal or psychotic thoughts: She told staff over the weekend that she was seeing blood and critters in her room. She is delusional. Judgment: Poor Insight: Poor Orientation: Alert and oriented x 3. Recent and remote memory: Patient says she remembers that she didn't take her Latuda but she can't say why, because when she took it once, didn't develop adverse effects. She says she knows she has been offered Aripiprazole but shays she won't take it. She remembers taking Haldol Im over the weekend. Attention span and concentration: Distractible, she's derailed. Mood: elevated Affect: congruent with mood, labile, irritable, happy at times, sad. DIAGNOSES: 1. Bipolar Disorder 2. Cannabis Use Disorder ASSESSMENT: Patient was given Haldol 5 mgs Im over the weekend and she didn't develop any adverse effect. As it was stated on Tuesday, none of the side effects that she has reported has ever been verified. MANAGEMENT PLAN: Continue with plan mentioned above. Vital Signs Vital Signs Date Time Temp Pulse Resp B/P (MAP) Pulse Ox O2 Delivery O2 Flow Rate FiO2 05/08/18 18:00 98.2 109 16 134/63 (86) 05/06/18 08:00 Room Air Current Medications Current Medications Al Hydrox/Mg Hydrox/Simethicone (Mylanta) 30 ml Q4HP PRN PO HEARTBURN/INDIGESTION Last administered on 05/08/18 14:54; Start 04/24/18 at 14:00 Albuterol Sulfate (Proventil, Ventolin Hfa) 2 puff Q4HP PRN INH SHORTNESS OF BREATH Last administered on 05/08/18 11:08; Start 04/24/18 at 18:45 Aripiprazole (AbiLIFY) 10 mg QHS PO ; Start 05/05/18 at 21:00 Benzocaine (Anbesol Gel) TO MOUTH SORES QID MT Last administered on 05/08/18 16:09; Start 05/08/18 at 13:00 Cetylpyridinium Chloride (Cepacol) 1 karoline Q2HP PRN PO COUGH Last administered on 05/08/18 17:55; Start 05/01/18 at 18:30 Clonazepam (KlonoPIN) 1 mg BIDP PRN PO ANXIETY/AGITATION Last administered on 04/30/18 11:40; Start 04/24/18 at 18:45; Stop 04/30/18 at 23:38; Status DC Clonazepam (KlonoPIN) 1 mg QID PO Last administered on 05/08/18 16:09; Start 05/02/18 at 13:00 Diphenhydramine HCl (Benadryl) 25 mg TID PO Last administered on 05/08/18 16:09; Start 05/05/18 at 16:00 Diphenhydramine HCl (Benadryl) 50 mg Q6HP PRN PO ITCHING Last administered on 05/07/18 06:31; Start 05/03/18 at 23:30 Fluticasone Propionate (Flonase 0.05% Nasal [place]) 1 spray BIDP PRN NARES post nasal drip Last administered on 1/14/19at 16:11; Start 05/08/18 at 14:00 Home Med (Med Rec Complete!) ASDIRECTED XX ; Start 04/24/18 at 09:45; Stop 04/24/18 at 09:45; Status DC Ibuprofen (Advil) 400 mg Q8HP PRN PO PAIN OR DISCOMFORT Last administered on 05/08/18at 12:46; Start 04/25/18 at 21:45 Lorazepam (Ativan) 2 mg Q6HP PRN PO ANXIETY/AGITATION Last administered on 05/02/18at 08:50; Start 04/30/18 at 12:45; Stop 05/02/18 at 09:27; Status DC Lurasidone HCl (Latuda) 20 mg BID PO ; Start 04/28/18 at 21:00; Status Cancel Lurasidone HCl (Latuda) 40 mg DAILY@08 PO Last administered on 05/04/18at 08:25; Start 05/02/18 at 08:00 Magnesium Hydroxide (Milk Of Magnesia) 30 ml DAILYPRN PRN PO CONSTIPATION Last administered on 05/02/18at 20:43; Start 04/24/18 at 14:00 Miscellaneous (Unresolved Clarification Entry) SEE LABEL COMMENTS DAILY XX ; Start 05/08/18 at 09:00; Stop 05/08/18 at 14:17; Status DC Nicotine (Nicoderm Cq 21mg) 1 patch DAILY TD Last administered on 05/08/18at 11:08; Start 04/26/18 at 09:00 Non-Formulary Medication ( See Comment Field Below ) SEE COMMENTS SECTION 1T@10 XX ; Start 05/04/18 at 10:00; Stop 05/05/18 at 09:59; Status UNV Olanzapine (ZyPREXA ZYDIS) 10 mg Q6HP PRN PO ANXIETY/AGITATION; Start 04/30/18 at 12:45 Ondansetron HCl (Zofran Odt) 4 mg Q6H PRN PO NAUSEA Last administered on 05/08/18at 11:07; Start 04/24/18 at 18:45 Oxcarbazepine (Trileptal) 150 mg BID PO ; Start 04/26/18 at 21:00; Stop 04/28/18 at 11:20; Status DC Oxcarbazepine (Trileptal) 150 mg QAM PO ; Start 04/25/18 at 09:00; Stop 04/26/18 at 16:04; Status DC Patient Own Medication (Patient'S Own Med) BENEFIBER PACKET: ADMINIS... BID PO Last administered on 05/08/18at 11:08; Start 05/02/18 at 21:00 Psyllium Hydrophilic Mucilloid (Metamucil) 1 pkt BID PO Last administered on 04/25/18at 11:25; Start 04/25/18 at 09:00; Stop 05/03/18 at 08:13; Status DC Quetiapine Fumarate (SEROquel) 50 mg DAILY@1500 PO Last administered on 04/29/18at 15:43; Start 04/28/18 at 15:00; Stop 05/01/18 at 15:59; Status DC Quetiapine Fumarate (SEROquel) 50 mg QAM PO Last administered on 05/03/18at 13:27; Start 04/29/18 at 09:00; Stop 05/03/18 at 21:24; Status DC Quetiapine Fumarate (SEROquel) 100 mg QAM PO ; Start 04/28/18 at 09:00; Stop 04/28/18 at 12:01; Status DC Quetiapine Fumarate (SEROquel) 150 mg DAILY@1500 PO ; Start 04/28/18 at 15:00; Status Cancel Quetiapine Fumarate (SEROquel) 150 mg QHS PO Last administered on 04/27/18at 00:09; Start 04/26/18 at 21:00; Stop 04/27/18 at 19:45; Status DC Quetiapine Fumarate (SEROquel) 200 mg QHS PO Last administered on 04/27/18at 20:29; Start 04/27/18 at 21:00; Stop 04/28/18 at 11:21; Status DC Quetiapine Fumarate (SEROquel) 250 mg QHS PO Last administered on 04/29/18at 21:01; Start 04/28/18 at 21:00; Stop 05/01/18 at 15:59; Status DC Sucralfate (Carafate Suspension) 1 gm ACHS PO Last administered on 05/08/18at 16:53; Start 12/31/18 at 21:00 Trazodone HCl (Desyrel) 50 mg QHSP PRN PO INSOMNIA; Start 04/24/18 at 14:00; Status Cancel Allergies Coded Allergies: Aripiprazole (Unverified Allergy, Unknown, 05/05/18) This reaction was never verified. It is SUSPECT. Carbitol (Unverified Allergy, Unknown, 01/13/13) Fluphenazine (Unverified Allergy, Unknown, 05/05/18) UNVERIFIED REACTION. IT IS SUSPECT [place] (Unverified Allergy, Unknown, 05/05/18) UNVERIFIED REACTION. IT IS SUSPECT. Meperidine (Unverified Allergy, Unknown, 01/13/13) Metoclopramide (Unverified Allergy, Unknown, 01/13/13) Olanzapine (Unverified Allergy, Unknown, 05/05/18) This is an unverified reaction. It is SUSPECT Penicillins (Unverified Allergy, Unknown, 01/13/13) Ranitidine (Unverified Allergy, Unknown, 01/13/13) Risperidone (Unverified Allergy, Unknown, 05/05/18) Unverified reaction. It is SUSPECT. Sertraline (Unverified Allergy, Unknown, 05/05/18) Unverified reaction. It is SUSPECT Valproic Acid (Unverified Allergy, Unknown, 05/05/18) Unverified reaction. It is SUSPECT Acetaminophen (Unverified Adverse Reaction, Intermediate, PT Hx hep C, hep B, 04/24/18) Haloperidol (Verified Adverse Reaction, Intermediate, makes me go crazy, 05/05/18) uNVERIFIED REACTION. IT IS SUSPECT BRENNA FLEMING MD May 08, 2018 20:54
[2018-05-09] MEDS: CEPACOL LOZENGE PO PRN ×5 (00:23→21:21)
[2018-05-09] MEDS: ONDANSETRON 4 MG ORAL DISINTEGRATING TAB (Q0162 PER 1MG) PO PRN ×3 (00:23→23:21)
[2018-05-09] MEDS: BENZOCAINE 10% 9GM TUBE (ANBESOL) MT SCH ×5 (00:27→21:13)
[2018-05-09] MEDS: diphenhydrAMINE 50 MG CAP PO PRN (02:15)
[2018-05-09] MEDS: SUCRALFATE SUSP 1GM/10ML UD PO SCH ×4 (06:06→21:13)
[2018-05-09] MEDS: ALBUTEROL 90 MCG/ACT 8GM HFA INHALER INH PRN ×3 (06:12→21:21)
[2018-05-09 06:40] VITALS: BP 139/79
[2018-05-09] MEDS: LURASIDONE HCL 40 MG TAB (LATUDA) PO SCH (08:00)
[2018-05-09] MEDS: diphenhydrAMINE 25 MG CAP PO SCH ×3 (08:42→21:12)
[2018-05-09] MEDS: clonazePAM 1 MG TAB PO SCH ×4 (08:42→21:13)
[2018-05-09] MEDS: BENEFIBER PO SCH ×2 (08:43→21:00)
[2018-05-09] MEDS: NICOTINE 21MG/24HR 1 EA TRANSDERMAL TD SCH (08:49)
[2018-05-09] MEDS: CHLORHEXIDINE GLUCONATE 0.12 % 15ML UDC (PERIDEX ORAL RINSE) SSP SCH ×3 (09:51→17:46)
[2018-05-09] MEDS: FLUTICASONE PROP 0.05% NASAL SPRAY 16 GM (FLONASE) NARES PRN (17:46)
[2018-05-09 18:00] VITALS: BP 127/81
[2018-05-09] MEDS: ARIPiprazole 10 MG TAB PO SCH (21:00)
[2018-05-09] MEDS: IBUPROFEN 400 MG TAB PO PRN (21:22)
[2018-05-10] MEDS: ALBUTEROL 90 MCG/ACT 8GM HFA INHALER INH PRN (03:57)
[2018-05-10] MEDS: FLUTICASONE PROP 0.05% NASAL SPRAY 16 GM (FLONASE) NARES PRN (04:04)
[2018-05-10] MEDS: CEPACOL LOZENGE PO PRN ×2 (05:44→11:48)
[2018-05-10 06:30] VITALS: BP 150/80
[2018-05-10] MEDS: LURASIDONE HCL 40 MG TAB (LATUDA) PO SCH (07:59)
[2018-05-10] MEDS: clonazePAM 1 MG TAB PO SCH ×3 (08:01→16:00)
[2018-05-10] MEDS: SUCRALFATE SUSP 1GM/10ML UD PO SCH ×4 (08:01→21:00)
[2018-05-10] MEDS: BENEFIBER PO SCH ×2 (08:01→21:00)
[2018-05-10] MEDS: diphenhydrAMINE 25 MG CAP PO SCH ×3 (08:03→21:00)
[2018-05-10] MEDS: BENZOCAINE 10% 9GM TUBE (ANBESOL) MT SCH ×3 (08:04→16:00)
[2018-05-10] MEDS: NICOTINE 21MG/24HR 1 EA TRANSDERMAL TD SCH (08:04)
[2018-05-10] MEDS: CHLORHEXIDINE GLUCONATE 0.12 % 15ML UDC (PERIDEX ORAL RINSE) SSP SCH ×3 (08:04→17:50)
--- NOTE | 2018-05-10 17:00 | MHIPNPDOC ---
[facility] Progress Note Progress Note DATE OF SERVICE: 05/09/18 HISTORY: As per Dr. Oliver: " "I have a problem with my boyfriend, I don't want to live with him." The patient was brought by the police as her called the police because for the last two weeks the patient has been manic. She is on prednisone for her hepatitis C. She is reportedly all around the place, cleaning her house. She reports that she feels like she is on speed. It is difficult to follow her as the patient is very tangential, circumstantial, and there is flight of ideas. The patient reports she has been allergic to most of the medications. She also reports she took herself off from Prozac as it was not helping her. She has started taking cannabidiol (CBD) oil which helps her mood as per the patient. Currently denies any suicidal or homicidal ideas." VITAL SIGNS: See below. NEW TEST RESULTS: CURRENT MEDICATIONS: See below. MENTAL STATUS EXAMINATION: Patient is a 47-year old female, who is alert, cooperative, dressed in hospital clothes, Speech: Is tangential, circumstantial, pressured, hyper verbal, less rapid, less pressured Thought processes including:circumstantial, tangential, flight of ideas, irrational Thought content: she can't focus, she is derailed, she says she won't go back to her . Description of abnormal or psychotic thoughts: Av hallucinations and thought delusions. Denies SI and denies HI. Judgment: Poor Insight: Poor Orientation: Alert and oriented x 3. Recent and remote memory: Limited Attention span and concentration: Distractible, she's derailed. Mood: elevated Affect: congruent with mood, labile, irritable, happy at times, sad. DIAGNOSES: 1. Bipolar Disorder 2. Cannabis Use Disorder ASSESSMENT: Patient continues to be reluctant to take medications. TOO is ready. she knows she will have to go to court to obtain permission from the Clarifier to give her medications, either PO/IM if she continues to refuse taking them. She has very poor insight into her illness. Her judgment is poor. She continues to be delusional. MANAGEMENT PLAN: Continue with plan mentioned above. Vital Signs Vital Signs Date Time Temp Pulse Resp B/P (MAP) Pulse Ox O2 Delivery O2 Flow Rate FiO2 05/10/18 06:30 98.1 72 16 150/80 (103) 05/06/18 08:00 Room Air Current Medications Current Medications Al Hydrox/Mg Hydrox/Simethicone (Mylanta) 30 ml Q4HP PRN PO HEARTBURN/INDIGESTION Last administered on 05/08/18 14:54; Start 04/24/18 at 14:00 Albuterol Sulfate (Proventil, Ventolin Hfa) 2 puff Q4HP PRN INH SHORTNESS OF BREATH Last administered on 05/10/18 03:57; Start 04/24/18 at 18:45 Aripiprazole (AbiLIFY) 10 mg QHS PO Last administered on 05/09/18 21:00; Start 05/05/18 at 21:00 Benzocaine (Anbesol Gel) TO MOUTH SORES QID MT Last administered on 05/10/18 16:00; Start 05/08/18 at 13:00 Cetylpyridinium Chloride (Cepacol) 1 karoline Q2HP PRN PO COUGH Last administered on 05/10/18 11:48; Start 05/01/18 at 18:30 Chlorhexidine Gluconate (Peridex Oral Rinse) 15 ml PC SSP Last administered on 05/10/18 12:09; Start 05/09/18 at 08:30 Clonazepam (KlonoPIN) 1 mg BIDP PRN PO ANXIETY/AGITATION Last administered on 04/30/18 11:40; Start 04/24/18 at 18:45; Stop 04/30/18 at 23:38; Status DC Clonazepam (KlonoPIN) 1 mg QID PO Last administered on 05/10/18 16:00; Start 05/02/18 at 13:00 Diphenhydramine HCl (Benadryl) 25 mg TID PO Last administered on 05/10/18 15:24; Start 05/05/18 at 16:00 Diphenhydramine HCl (Benadryl) 50 mg Q6HP PRN PO ITCHING Last administered on 02:15; Start 05/03/18 at 23:30 Fluticasone Propionate (Flonase 0.05% Nasal [place]) 1 spray BIDP PRN NARES post nasal drip Last administered on 05/10/18 04:04; Start 05/08/18 at 14:00 Home Med (Med Rec Complete!) ASDIRECTED XX ; Start 04/24/18 at 09:45; Stop 04/24/18 at 09:45; Status DC Ibuprofen (Advil) 400 mg Q8HP PRN PO PAIN OR DISCOMFORT Last administered on 05/09/18at 21:22; Start 04/25/18 at 21:45 Lorazepam (Ativan) 2 mg Q6HP PRN PO ANXIETY/AGITATION Last administered on 05/02/18at 08:50; Start 04/30/18 at 12:45; Stop 05/02/18 at 09:27; Status DC Lurasidone HCl (Latuda) 20 mg BID PO ; Start 04/28/18 at 21:00; Status Cancel Lurasidone HCl (Latuda) 40 mg DAILY@08 PO Last administered on 05/04/18at 08:25; Start 05/02/18 at 08:00 Magnesium Hydroxide (Milk Of Magnesia) 30 ml DAILYPRN PRN PO CONSTIPATION Last administered on 05/02/18at 20:43; Start 04/24/18 at 14:00 Miscellaneous (Unresolved Clarification Entry) SEE LABEL COMMENTS DAILY XX ; Start 05/08/18 at 09:00; Stop 05/08/18 at 14:17; Status DC Nicotine (Nicoderm Cq 21mg) 1 patch DAILY TD Last administered on 05/10/18at 08:04; Start 04/26/18 at 09:00 Non-Formulary Medication ( See Comment Field Below ) SEE COMMENTS SECTION 1T@10 XX ; Start 05/04/18 at 10:00; Stop 05/05/18 at 09:59; Status UNV Olanzapine (ZyPREXA ZYDIS) 10 mg Q6HP PRN PO ANXIETY/AGITATION; Start 04/30/18 at 12:45 Ondansetron HCl (Zofran Odt) 4 mg Q6H PRN PO NAUSEA Last administered on 05/09/18at 23:21; Start 04/24/18 at 18:45 Oxcarbazepine (Trileptal) 150 mg BID PO ; Start 04/26/18 at 21:00; Stop 04/28/18 at 11:20; Status DC Oxcarbazepine (Trileptal) 150 mg QAM PO ; Start 04/25/18 at 09:00; Stop 04/26/18 at 16:04; Status DC Patient Own Medication (Patient'S Own Med) BENEFIBER PACKET: ADMINIS... BID PO Last administered on 05/10/18at 08:01; Start 05/02/18 at 21:00 Psyllium Hydrophilic Mucilloid (Metamucil) 1 pkt BID PO Last administered on 04/25/18at 11:25; Start 04/25/18 at 09:00; Stop 05/03/18 at 08:13; Status DC Quetiapine Fumarate (SEROquel) 50 mg DAILY@1500 PO Last administered on 04/29/18at 15:43; Start 04/28/18 at 15:00; Stop 05/01/18 at 15:59; Status DC Quetiapine Fumarate (SEROquel) 50 mg QAM PO Last administered on 05/03/18at 13:27; Start 04/29/18 at 09:00; Stop 05/03/18 at 21:24; Status DC Quetiapine Fumarate (SEROquel) 100 mg QAM PO ; Start 04/28/18 at 09:00; Stop 04/28/18 at 12:01; Status DC Quetiapine Fumarate (SEROquel) 150 mg DAILY@1500 PO ; Start 04/28/18 at 15:00; Status Cancel Quetiapine Fumarate (SEROquel) 150 mg QHS PO Last administered on 04/27/18at 00:09; Start 04/26/18 at 21:00; Stop 04/27/18 at 19:45; Status DC Quetiapine Fumarate (SEROquel) 200 mg QHS PO Last administered on 04/27/18at 20:2 9; Start 04/27/18 at 21:00; Stop 04/28/18 at 11:21; Status DC Quetiapine Fumarate (SEROquel) 250 mg QHS PO Last administered on 04/29/18at 21:01; Start 04/28/18 at 21:00; Stop 05/01/18 at 15:59; Status DC Sucralfate (Carafate Suspension) 1 gm ACHS PO Last administered on 05/10/18at 11:27; Start 04/24/18 at 21:00 Trazodone HCl (Desyrel) 50 mg QHSP PRN PO INSOMNIA; Start 04/24/18 at 14:00; Status Cancel Allergies Coded Allergies: Aripiprazole (Unverified Allergy, Unknown, 05/05/18) This reaction was never verified. It is SUSPECT. Carbitol (Unverified Allergy, Unknown, 01/13/13) Fluphenazine (Unverified Allergy, Unknown, 05/05/18) UNVERIFIED REACTION. IT IS SUSPECT [place] (Unverified Allergy, Unknown, 05/05/18) UNVERIFIED REACTION. IT IS SUSPECT. Meperidine (Unverified Allergy, Unknown, 01/13/13) Metoclopramide (Unverified Allergy, Unknown, 01/13/13) Olanzapine (Unverified Allergy, Unknown, 05/05/18) This is an unverified reaction. It is SUSPECT Penicillins (Unverified Allergy, Unknown, 01/13/13) Ranitidine (Unverified Allergy, Unknown, 01/13/13) Risperidone (Unverified Allergy, Unknown, 05/05/18) Unverified reaction. It is SUSPECT. Sertraline (Unverified Allergy, Unknown, 05/05/18) Unverified reaction. It is SUSPECT Valproic Acid (Unverified Allergy, Unknown, 05/05/18) Unverified reaction. It is SUSPECT Acetaminophen (Unverified Adverse Reaction, Intermediate, PT Hx hep C, hep B, 04/24/18) Haloperidol (Verified Adverse Reaction, Intermediate, makes me go crazy, 05/05/18) uNVERIFIED REACTION. IT IS SUSPECT BRENNA FLEMING MD May 10, 2018 17:00
--- NOTE | 2018-05-10 17:06 | MHIPNPDOC ---
[facility] Progress Note Progress Note DATE OF SERVICE: 05/10/18 HISTORY: As per Dr. Oliver: " "I have a problem with my boyfriend, I don't want to live with him." The patient was brought by the police as her called the police because for the last two weeks the patient has been manic. She is on prednisone for her hepatitis C. She is reportedly all around the place, cleaning her house. She reports that she feels like she is on speed. It is difficult to follow her as the patient is very tangential, circumstantial, and there is flight of ideas. The patient reports she has been allergic to most of the medications. She also reports she took herself off from Prozac as it was not helping her. She has started taking cannabidiol (CBD) oil which helps her mood as per the patient. Currently denies any suicidal or homicidal ideas." VITAL SIGNS: See below. NEW TEST RESULTS: CURRENT MEDICATIONS: See below. MENTAL STATUS EXAMINATION: Patient is a 47-year old female, who is alert, cooperative, dressed in hospital clothes, Speech: Rapid, pressured, tangential and circumstantial. She is very talkative Thought processes including:circumstantial, tangential, flight of ideas, irrational Thought content: Delusional. has paranoid delusions. she has visual and auditory hallucinations, bizarre in content Description of abnormal or psychotic thoughts: Av hallucinations and thought delusions. Denies SI and denies HI. Judgment: Poor Insight: Poor Orientation: Alert and oriented x 3. Recent and remote memory: Limited Attention span and concentration: Very poor Mood: elevated Affect: congruent with mood, labile, irritable DIAGNOSES: 1. Bipolar Disorder 2. Cannabis Use Disorder ASSESSMENT: Patient says she doesn't want to go to [place] but she continues to refuse her medications even when I tell her she didn't develop any side effct from haldol over the weekend. she adamantly denies having bipolar disorder, says that she is just anxious and that she doesn't need any other medication but Klonopin. MANAGEMENT PLAN: Continue with plan mentioned above. Vital Signs Vital Signs Date Time Temp Pulse Resp B/P (MAP) Pulse Ox O2 Delivery O2 Flow Rate FiO2 05/10/18 06:30 98.1 72 16 150/80 (103) 05/06/18 08:00 Room Air Current Medications Current Medications Al Hydrox/Mg Hydrox/Simethicone (Mylanta) 30 ml Q4HP PRN PO HE ARTBURN/INDIGESTION Last administered on 05/08/18 14:54; Start 04/24/18 at 14:00 Albuterol Sulfate (Proventil, Ventolin Hfa) 2 puff Q4HP PRN INH SHORTNESS OF BREATH Last administered on 05/10/18 03:57; Start 04/24/18 at 18:45 Aripiprazole (AbiLIFY) 10 mg QHS PO Last administered on 05/09/18 21:00; Start 05/05/18 at 21:00 Benzocaine (Anbesol Gel) TO MOUTH SORES QID MT Last administered on 05/10/18 16:00; Start 05/08/18 at 13:00 Cetylpyridinium Chloride (Cepacol) 1 karoline Q2HP PRN PO COUGH Last administered on 05/10/18 11:48; Start 05/01/18 at 18:30 Chlorhexidine Gluconate (Peridex Oral Rinse) 15 ml PC SSP Last administered on 05/10/18 12:09; Start 05/09/18 at 08:30 Clonazepam (KlonoPIN) 1 mg BIDP PRN PO ANXIETY/AGITATION Last administered on 04/30/18 11:40; Start 04/24/18 at 18:45; Stop 04/30/18 at 23:38; Status DC Clonazepam (KlonoPIN) 1 mg QID PO Last administered on 05/10/18 16:00; Start 05/02/18 at 13:00 Diphenhydramine HCl (Benadryl) 25 mg TID PO Last administered on 05/10/18 15:24; Start 05/05/18 at 16:00 Diphenhydramine HCl (Benadryl) 50 mg Q6HP PRN PO ITCHING Last administered on 05/09/18 02:15; Start 05/03/18 at 23:30 Fluticasone Propionate (Flonase 0.05% Nasal [place]) 1 spray BIDP PRN NARES post nasal drip Last administered on 05/10/18 04:04; Start 05/08/18 at 14:00 Home Med (Med Rec Complete!) ASDIRECTED XX ; Start 04/24/18 at 09:45; Stop 04/24/18 at 09:45; Status DC Ibuprofen (Advil) 400 mg Q8HP PRN PO PAIN OR DISCOMFORT Last administered on 05/09/18at 21:22; Start 04/25/18 at 21:45 Lorazepam (Ativan) 2 mg Q6HP PRN PO ANXIETY/AGITATION Last administered on 05/02/18at 08:50; Start 04/30/18 at 12:45; Stop 05/02/18 at 09:27; Status DC Lurasidone HCl (Latuda) 20 mg BID PO ; Start 04/28/18 at 21:00; Status Cancel Lurasidone HCl (Latuda) 40 mg DAILY@08 PO Last administered on 05/04/18at 08:25; Start 05/02/18 at 08:00 Magnesium Hydroxide (Milk Of Magnesia) 30 ml DAILYPRN PRN PO CONSTIPATION Last administered on 05/02/18at 20:43; Start 04/24/18 at 14:00 Miscellaneous (Unresolved Clarification Entry) SEE LABEL COMMENTS DAILY XX ; Start 05/08/18 at 09:00; Stop 05/08/18 at 14:17; Status DC Nicotine (Nicoderm Cq 21mg) 1 patch DAILY TD Last administered on 05/10/18at 08:04; Start 04/26/18 at 09:00 Non-Formulary Medication ( See Comment Field Below ) SEE COMMENTS SECTION 1T@10 XX ; Start 05/04/18 at 10:00; Stop 05/05/18 at 09:59; Status UNV Olanzapine (ZyPREXA ZYDIS) 10 mg Q6HP PRN PO ANXIETY/AGITATION; Start 04/30/18 at 12:45 Ondansetron HCl (Zofran Odt) 4 mg Q6H PRN PO NAUSEA Last administered on 05/09/18at 23:21; Start 04/24/18 at 18:45 Oxcarbazepine (Trileptal) 150 mg BID PO ; Start 04/26/18 at 21:00; Stop 04/28/18 at 11:20; Status DC Oxcarbazepine (Trileptal) 150 mg QAM PO ; Start 04/25/18 at 09:00; Stop 04/26/18 at 16:04; Status DC Patient Own Medication (Patient'S Own Med) BENEFIBER PACKET: ADMINIS... BID PO Last administered on 05/10/18at 08:01; Start 05/02/18 at 21:00 Psyllium Hydrophilic Mucilloid (Metamucil) 1 pkt BID PO Last administered on 04/25/18at 11:25; Start 04/25/18 at 09:00; Stop 05/03/18 at 08:13; Status DC Quetiapine Fumarate (SEROquel) 50 mg DAILY@1500 PO Last administered on 04/29/18at 15:43; Start 04/28/18 at 15:00; Stop 05/01/18 at 15:59; Status DC Quetiapine Fumarate (SEROquel) 50 mg QAM PO Last administered on 05/03/18at 13:2 7; Start 04/29/18 at 09:00; Stop 05/03/18 at 21:24; Status DC Quetiapine Fumarate (SEROquel) 100 mg QAM PO ; Start 04/28/18 at 09:00; Stop 04/28/18 at 12:01; Status DC Quetiapine Fumarate (SEROquel) 150 mg DAILY@1500 PO ; Start 04/28/18 at 15:00; Status Cancel Quetiapine Fumarate (SEROquel) 150 mg QHS PO Last administered on 04/27/18at 00:09; Start 04/26/18 at 21:00; Stop 04/27/18 at 19:45; Status DC Quetiapine Fumarate (SEROquel) 200 mg QHS PO Last administered on 04/27/18at 20:29; Start 04/27/18 at 21:00; Stop 04/28/18 at 11:21; Status DC Quetiapine Fumarate (SEROquel) 250 mg QHS PO Last administered on 04/29/18at 21:01; Start 04/28/18 at 21:00; Stop 05/01/18 at 15:59; Status DC Sucralfate (Carafate Suspension) 1 gm ACHS PO Last administered on 05/10/18at 11:27; Start 04/24/18 at 21:00 Trazodone HCl (Desyrel) 50 mg QHSP PRN PO INSOMNIA; Start 04/24/18 at 14:00; Status Cancel Allergies Coded Allergies: Aripiprazole (Unverified Allergy, Unknown, 05/05/18) This reaction was never verified. It is SUSPECT. Carbitol (Unverified Allergy, Unknown, 01/13/13) Fluphenazine (Unverified Allergy, Unknown, 05/05/18) UNVERIFIED REACTION. IT IS SUSPECT [place] (Unverified Allergy, Unknown, 05/05/18) UNVERIFIED REACTION. IT IS SUSPECT. Meperidine (Unverified Allergy, Unknown, 01/13/13) Metoclopramide (Unverified Allergy, Unknown, 01/13/13) Olanzapine (Unverified Allergy, Unknown, 05/05/18) This is an unverified reaction. It is SUSPECT Penicillins (Unverified Allergy, Unknown, 01/13/13) Ranitidine (Unverified Allergy, Unknown, 01/13/13) Risperidone (Unverified Allergy, Unknown, 05/05/18) Unverified reaction. It is SUSPECT. Sertraline (Unverified Allergy, Unknown, 05/05/18) Unverified reaction. It is SUSPECT Valproic Acid (Unverified Allergy, Unknown, 05/05/18) Unverified reaction. It is SUSPECT Acetaminophen (Unverified Adverse Reaction, Intermediate, PT Hx hep C, hep B, 04/24/18) Haloperidol (Verified Adverse Reaction, Intermediate, makes me go crazy, 05/05/18) uNVERIFIED REACTION. IT IS SUSPECT BRENNA FLEMING MD May 10, 2018 17:06
[2018-05-10] MEDS ORDERED: HALOPERIDOL 5 MG/ML VIAL (J1630) IM ONE (17:45)
[2018-05-10] MEDS ORDERED: BENZTROPINE MESYLATE 2MG/2ML VIAL IM ONE (17:45)
[2018-05-10 18:00] VITALS: BP 158/83
[2018-05-10] MEDS: ARIPiprazole 10 MG TAB PO SCH (21:00)
[2018-05-11] MEDS: BENZOCAINE 10% 9GM TUBE (ANBESOL) MT SCH ×5 (02:28→20:12)
[2018-05-11] MEDS: clonazePAM 1 MG TAB PO SCH ×5 (02:28→20:11)
[2018-05-11] MEDS: ALBUTEROL 90 MCG/ACT 8GM HFA INHALER INH PRN ×2 (02:32→23:42)
[2018-05-11] MEDS: FLUTICASONE PROP 0.05% NASAL SPRAY 16 GM (FLONASE) NARES PRN ×3 (02:34→20:12)
[2018-05-11] MEDS: ANALGESIC BALM CRM 120 GM TOP PRN ×2 (02:44→20:17)
[2018-05-11] MEDS: IBUPROFEN 400 MG TAB PO PRN ×3 (03:01→23:00)
[2018-05-11] MEDS: ONDANSETRON 4 MG ORAL DISINTEGRATING TAB (Q0162 PER 1MG) PO PRN ×2 (03:05→20:11)
[2018-05-11] MEDS: CEPACOL LOZENGE PO PRN ×3 (03:31→20:11)
[2018-05-11 06:28] VITALS: BP 137/74
[2018-05-11] MEDS: SUCRALFATE SUSP 1GM/10ML UD PO SCH ×4 (06:42→20:12)
[2018-05-11] MEDS: LURASIDONE HCL 40 MG TAB (LATUDA) PO SCH (08:00)
[2018-05-11] MEDS: BENEFIBER PO SCH ×2 (08:18→20:14)
[2018-05-11] MEDS: CHLORHEXIDINE GLUCONATE 0.12 % 15ML UDC (PERIDEX ORAL RINSE) SSP SCH ×3 (08:19→18:12)
[2018-05-11] MEDS: diphenhydrAMINE 25 MG CAP PO SCH ×3 (08:19→20:11)
[2018-05-11] MEDS: NICOTINE 21MG/24HR 1 EA TRANSDERMAL TD SCH (08:20)
[2018-05-11 08:56] VITALS: BP 137/74
--- NOTE | 2018-05-11 14:23 | MHIPNPDOC ---
[facility] Progress Note Progress Note DATE OF SERVICE: 05/11/18 HISTORY: As per Dr. Oliver: " "I have a problem with my boyfriend, I don't want to live with him." The patient was brought by the police as her called the police because for the last two weeks the patient has been manic. She is on prednisone for her hepatitis C. She is reportedly all around the place, cleaning her house. She reports that she feels like she is on speed. It is difficult to follow her as the patient is very tangential, circumstantial, and there is flight of ideas. The patient reports she has been allergic to most of the medications. She also reports she took herself off from Prozac as it was not helping her. She has started taking cannabidiol (CBD) oil which helps her mood as per the patient. Currently denies any suicidal or homicidal ideas." VITAL SIGNS: See below. NEW TEST RESULTS: CURRENT MEDICATIONS: See below. MENTAL STATUS EXAMINATION: Patient is a 47-year old female, who is alert, cooperative, dressed in personal clothes Speech: Rapid, less pressured, tangential and circumstantial. She is very talkative Thought processes including:circumstantial, tangential, flight of ideas, irrational Thought content: Delusional. She has bizarre delusions, including medication side effects. Description of abnormal or psychotic thoughts: she was not responding to internal stimuli, she has erotomanic thoughts about being in love with a musician and marrying him because his is going to because she is ill Judgment: Poor Insight: Poor Orientation: Alert and oriented x 3. Recent and remote memory: Limited Attention span and concentration: Very poor Mood: elevated Affect: congruent with mood DIAGNOSES: 1. Bipolar Disorder 2. Cannabis Use Disorder ASSESSMENT: Patient says she will take Haldol, she will try to take it orally. Reports she gets canker sores and salivates too much and that's why she doesn't like to take it orally and prefers it IM. Medication Nurse was present and she reinforced that, telling her those are not side effects of Haldol. She has said that Aripiprazole has caused her abdominal pain but we have told her is not related to Aripiprazole but to the food that she keeps in her room and probably she has eaten spoiled food. MANAGEMENT PLAN: Haldol 10 mgs Po QHS and Cogentin 1 mg PO QHS, if she refuses, give the medications IM TIME SPENT: 15 MINUTES Vital Signs Vital Signs Date Time Temp Pulse Resp B/P (MAP) Pulse Ox O2 Delivery O2 Flow Rate FiO2 05/11/18 08:56 97.9 98 16 137/74 96 Room Air Current Medications Current Medications Al Hydrox/Mg Hydrox/Simethicone (Mylanta) 30 ml Q4HP PRN PO HEARTBURN/INDIGESTION Last administered on 05/08/18 14:54; Start 04/24/18 at 14:00 Albuterol Sulfate (Proventil, Ventolin Hfa) 2 puff Q4HP PRN INH SHORTNESS OF BREATH Last administered on 05/11/18 02:32; Start 04/24/18 at 18:45 Aripiprazole (AbiLIFY) 10 mg QHS PO Last administered on 05/09/18 21:00; Start 05/05/18 at 21:00; Stop 05/11/18 at 14:11; Status DC Benzocaine (Anbesol Gel) TO MOUTH SORES QID MT Last administered on 05/11/18 13:27; Start 05/08/18 at 13:00 Benztropine Mesylate (Cogentin) 1 mg QHS PO ; Start 05/11/18 at 21:00 Cetylpyridinium Chloride (Cepacol) 1 karoline Q2HP PRN PO COUGH Last administered on 05/11/18 03:31; Start 05/01/18 at 18:30 Chlorhexidine Gluconate (Peridex Oral Rinse) 15 ml PC SSP Last administered on 05/11/18 13:27; Start 05/09/18 at 08:30 Clonazepam (KlonoPIN) 1 mg BIDP PRN PO ANXIETY/AGITATION Last administered on 04/30/18 11:40; Start 04/24/18 at 18:45; Stop 04/30/18 at 23:38; Status DC Clonazepam (KlonoPIN) 1 mg QID PO Last administered on 05/11/18 13:26; Start 05/02/18 at 13:00 Diphenhydramine HCl (Benadryl) 25 mg TID PO Last administered on 05/11/18at 08:19; Start 05/05/18 at 16:00 Diphenhydramine HCl (Benadryl) 50 mg Q6HP PRN PO ITCHING Last administered on 05/09/18at 02:15; Start 05/03/18 at 23:30 Fluticasone Propionate (Flonase 0.05% Nasal [place]) 1 spray BIDP PRN NARES post nasal drip Last administered on 05/11/18at 02:34; Start 05/08/18 at 14:00 Haloperidol (Haldol) 10 mg QHS PO ; Start 05/11/18 at 21:00 Home Med (Med Rec Complete!) ASDIRECTED XX ; Start 04/24/18 at 09:45; Stop 04/24/18 at 09:45; Status DC Ibuprofen (Advil) 400 mg Q8HP PRN PO PAIN OR DISCOMFORT Last administered on 05/11/18at 03:01; Start 04/25/18 at 21:45 Lorazepam (Ativan) 2 mg Q6HP PRN PO ANXIETY/AGITATION Last administered on 05/02/18at 08:50; Start 04/30/18 at 12:45; Stop 05/02/18 at 09:27; Status DC Lurasidone HCl (Latuda) 20 mg BID PO ; Start 04/28/18 at 21:00; Status Cancel Lurasidone HCl (Latuda) 40 mg DAILY@08 PO Last administered on 05/04/18at 08:25; Start 05/02/18 at 08:00; Stop 05/11/18 at 14:10; Status DC Magnesium Hydroxide (Milk Of Magnesia) 30 ml DAILYPRN PRN PO CONSTIPATION Last administered on 05/02/18at 20:43; Start 04/24/18 at 14:00 Menthol/Methyl Salicylate ([place] Cream) apply to both ankles BIDP PRN TOP PAIN OR DISCOMFORT Last administered on 05/11/18at 02:44; Start 05/10/18 at 17:45 Miscellaneous (Unresolved Clarification Entry) SEE LABEL COMMENTS DAILY XX ; Start 05/08/18 at 09:00; Stop 05/08/18 at 14:17; Status DC Nicotine (Nicoderm Cq 21mg) 1 patch DAILY TD Last administered on 05/11/18at 08:20; Start 04/26/18 at 09:00 Non-Formulary Medication ( See Comment Field Below ) SEE COMMENTS SECTION 1T@10 XX ; Start 05/04/18 at 10:00; Stop 05/05/18 at 09:59; Status UNV Olanzapine (ZyPREXA ZYDIS) 10 mg Q6HP PRN PO ANXIETY/AGITATION; Start 04/30/18 at 12:45 Ondansetron HCl (Zofran Odt) 4 mg Q6H PRN PO NAUSEA Last administered on 05/11/18at 03:05; Start 04/24/18 at 18:45 Oxcarbazepine (Trileptal) 150 mg BID PO ; Start 04/26/18 at 21:00; Stop 04/28/18 at 11:20; Status DC Oxcarbazepine (Trileptal) 150 mg QAM PO ; Start 04/25/18 at 09:00; Stop 04/26/18 at 16:04; Status DC Patient Own Medication (Patient'S Own Med) BENEFIBER PACKET: ADMINIS... BID PO Last administered on 05/11/18at 08:18; Start 05/02/18 at 21:00 Psyllium Hydrophilic Mucilloid (Metamucil) 1 pkt BID PO Last administered on 04/25/18at 11:25; Start 04/25/18 at 09:00; Stop 05/03/18 at 08:13; Status DC Quetiapine Fumarate (SEROquel) 50 mg DAILY@1500 PO Last administered on 04/29/18at 15:43; Start 04/28/18 at 15:00; Stop 05/01/18 at 15:59; Status DC Quetiapine Fumarate (SEROquel) 50 mg QAM PO Last administered on 05/03/18at 13:27; Start 04/29/18 at 09:00; Stop 05/03/18 at 21:24; Status DC Quetiapine Fumarate (SEROquel) 100 mg QAM PO ; Start 04/28/18 at 09:00; Stop 04/28/18 at 12:01; Status DC Quetiapine Fumarate (SEROquel) 150 mg DAILY@1500 PO ; Start 04/28/18 at 15:00; Status Cancel Quetiapine Fumarate (SEROquel) 150 mg QHS PO Last administered on 04/27/18at 00:09; Start 04/26/18 at 21:00; Stop 04/27/18 at 19:45; Status DC Quetiapine Fumarate (SEROquel) 200 mg QHS PO Last administered on 04/27/18at 20:29; Start 04/27/18 at 21:00; Stop 04/28/18 at 11:21; Status DC Quetiapine Fumarate (SEROquel) 250 mg QHS PO Last administered on 04/29/18at 21:01; Start 04/28/18 at 21:00; Stop 05/01/18 at 15:59; Status DC Sucralfate (Carafate Suspension) 1 gm ACHS PO Last administered on 05/11/18at 11:42; Start 04/24/18 at 21:00 Trazodone HCl (Desyrel) 50 mg QHSP PRN PO INSOMNIA; Start 04/24/18 at 14:00; Status Cancel Allergies Coded Allergies: Aripiprazole (Unverified Allergy, Unknown, 05/05/18) This reaction was never verified. It is SUSPECT. Carbitol (Unverified Allergy, Unknown, 01/13/13) Fluphenazine (Unverified Allergy, Unknown, 05/05/18) UNVERIFIED REACTION. IT IS SUSPECT [place] (Unverified Allergy, Unknown, 05/05/18) UNVERIFIED REACTION. IT IS SUSPECT. Meperidine (Unverified Allergy, Unknown, 01/13/13) Metoclopramide (Unverified Allergy, Unknown, 01/13/13) Olanzapine (Unverified Allergy, Unknown, 05/05/18) This is an unverified reaction. It is SUSPECT Penicillins (Unverified Allergy, Unknown, 01/13/13) Ranitidine (Unverified Allergy, Unknown, 01/13/13) Risperidone (Unverified Allergy, Unknown, 05/05/18) Unverified reaction. It is SUSPECT. Sertraline (Unverified Allergy, Unknown, 05/05/18) Unverified reaction. It is SUSPECT Valproic Acid (Unverified Allergy, Unknown, 05/05/18) Unverified reaction. It is SUSPECT Acetaminophen (Unverified Adverse Reaction, Intermediate, PT Hx hep C, hep B, 04/24/18) Haloperidol (Verified Adverse Reaction, Intermediate, makes me go crazy, 05/05/18) uNVERIFIED REACTION. IT IS SUSPECT BRENNA FLEMING MD May 11, 2018 14:23
[2018-05-11 18:00] VITALS: BP 134/87
[2018-05-11] MEDS: MOM 30ML SUSPENSION UDC PO PRN (18:12)
[2018-05-11] MEDS: BENZTROPINE 0.5 MG TAB PO SCH (20:11)
[2018-05-11] MEDS: HALOPERIDOL 10 MG TAB PO SCH (20:11)
[2018-05-11] MEDS: diphenhydrAMINE 50 MG CAP PO PRN (20:12)
[2018-05-11] MEDS: MAALOX 30 ML SUSP *UDC PO PRN (22:59)
[2018-05-12 06:29] VITALS: BP 120/70
[2018-05-12] MEDS: SUCRALFATE SUSP 1GM/10ML UD PO SCH ×4 (06:31→21:06)
[2018-05-12] MEDS: diphenhydrAMINE 25 MG CAP PO SCH ×3 (08:53→21:06)
[2018-05-12] MEDS: BENEFIBER PO SCH ×2 (08:53→21:00)
[2018-05-12] MEDS: BENZOCAINE 10% 9GM TUBE (ANBESOL) MT SCH ×4 (08:53→21:06)
[2018-05-12] MEDS: NICOTINE 21MG/24HR 1 EA TRANSDERMAL TD SCH (08:53)
[2018-05-12] MEDS: clonazePAM 1 MG TAB PO SCH ×4 (08:53→21:06)
[2018-05-12] MEDS: CHLORHEXIDINE GLUCONATE 0.12 % 15ML UDC (PERIDEX ORAL RINSE) SSP SCH ×3 (08:54→18:45)
[2018-05-12] MEDS: ALBUTEROL 90 MCG/ACT 8GM HFA INHALER INH PRN ×2 (08:59→21:14)
[2018-05-12] MEDS: FLUTICASONE PROP 0.05% NASAL SPRAY 16 GM (FLONASE) NARES PRN ×2 (09:02→18:45)
[2018-05-12] MEDS: diphenhydrAMINE 50 MG CAP PO PRN ×2 (11:42→21:14)
[2018-05-12] MEDS: IBUPROFEN 400 MG TAB PO PRN ×2 (11:42→18:44)
[2018-05-12] MEDS: ANALGESIC BALM CRM 120 GM TOP PRN ×2 (12:50→18:43)
[2018-05-12 18:00] VITALS: BP 122/77
[2018-05-12] MEDS: HALOPERIDOL 10 MG TAB PO SCH (21:00)
[2018-05-12] MEDS: BENZTROPINE 0.5 MG TAB PO SCH (21:06)
[2018-05-13] MEDS: MOM 30ML SUSPENSION UDC PO PRN (00:17)
[2018-05-13] MEDS: CEPACOL LOZENGE PO PRN ×3 (00:26→20:57)
[2018-05-13] MEDS: MAALOX 30 ML SUSP *UDC PO PRN (01:05)
[2018-05-13] MEDS: ONDANSETRON 4 MG ORAL DISINTEGRATING TAB (Q0162 PER 1MG) PO PRN ×3 (01:05→20:53)
[2018-05-13] MEDS: IBUPROFEN 400 MG TAB PO PRN ×2 (03:06→14:20)
[2018-05-13] MEDS: diphenhydrAMINE 50 MG CAP PO PRN (03:06)
[2018-05-13] MEDS: ALBUTEROL 90 MCG/ACT 8GM HFA INHALER INH PRN (03:07)
[2018-05-13] MEDS: SUCRALFATE SUSP 1GM/10ML UD PO SCH ×5 (06:20→20:53)
[2018-05-13] MEDS: CHLORHEXIDINE GLUCONATE 0.12 % 15ML UDC (PERIDEX ORAL RINSE) SSP SCH ×3 (08:30→17:36)
[2018-05-13] MEDS: clonazePAM 1 MG TAB PO SCH ×4 (09:00→20:53)
[2018-05-13] MEDS: diphenhydrAMINE 25 MG CAP PO SCH ×3 (09:00→20:53)
[2018-05-13] MEDS: BENZOCAINE 10% 9GM TUBE (ANBESOL) MT SCH ×4 (09:00→20:57)
--- NOTE | 2018-05-13 10:50 | MHIPNPDOC ---
[facility] Progress Note Progress Note DATE OF SERVICE: 05/12/18 HISTORY: As per Dr. Oliver: " "I have a problem with my boyfriend, I don't want to live with him." The patient was brought by the police as her called the police because for the last two weeks the patient has been manic. She is on prednisone for her hepatitis C. She is reportedly all around the place, cleaning her house. She reports that she feels like she is on speed. It is difficult to follow her as the patient is very tangential, circumstantial, and there is flight of ideas. The patient reports she has been allergic to most of the medications. She also reports she took herself off from Prozac as it was not helping her. She has started taking cannabidiol (CBD) oil which helps her mood as per the patient. Currently denies any suicidal or homicidal ideas." VITAL SIGNS: See below. NEW TEST RESULTS: CURRENT MEDICATIONS: See below. MENTAL STATUS EXAMINATION: Patient is a 47-year old female, who is alert, cooperative, dressed in personal clothes Speech: Rapid, less pressured, tangential and circumstantial. She is very talkative Thought processes including:circumstantial, tangential, flight of ideas, irrational Thought content: Delusional. She has bizarre delusions, including medication side effects. Description of abnormal or psychotic thoughts: she was not responding to internal stimuli, she has erotomanic thoughts about being in love with a musician and marrying him because his is going to because she is ill Judgment: Poor Insight: Poor Orientation: Alert and oriented x 3. Recent and remote memory: Limited Attention span and concentration: Very poor Mood: elevated Affect: congruent with mood DIAGNOSES: 1. Bipolar Disorder 2. Cannabis Use Disorder ASSESSMENT: Her mental status examination has not changed much in a couple of days. Patient is still reluctant to take mood stabilizers/antipsychotics. She is still delusional although her speech is less pressured, but she is still very talkative. she continues to talk about men she is atracted to, saying she is going to them. She was asleep when I wennt to evaluate her. she said she had slept all night abd that made her feel well, but she slept well because she had taken Haldol. Our hope is that she will continue to take the medication (Haldol and Cogentin). TOO is in place and she knows that she would have to Court and take the medications, if not orally, injected. She says she doesn't want to go to court and she doesn't want to go to [facility] [place], so "I'll take the medication, even when I don't like it because it causes all those horrible side effects) MANAGEMENT PLAN: Haldol 10 mgs Po QHS and Cogentin 1 mg PO QHS, if she refuses, give the medications IM TIME SPENT: 15 MINUTES Vital Signs Vital Signs Date Time Temp Pulse Resp B/P (MAP) Pulse Ox O2 Delivery O2 Flow Rate FiO2 05/13/18 09:29 Room Air 05/12/18 18:00 99.0 108 16 122/77 (92) 05/11/18 08:56 96 Current Medications Current Medications Al Hydrox/Mg Hydrox/Simethicone (Mylanta) 30 ml Q4HP PRN PO HEARTBURN/INDIGESTION Last administered on 05/13/18 01:05; Start 04/24/18 at 14:00 Albuterol Sulfate (Proventil, Ventolin Hfa) 2 puff Q4HP PRN INH SHORTNESS OF BREATH Last administered on 05/13/18 03:07; Start 04/24/18 at 18:45 Aripiprazole (AbiLIFY) 10 mg QHS PO Last administered on 05/09/18 21:00; Start 05/05/18 at 21:00; Stop 05/11/18 at 14:11; Status DC Benzocaine (Anbesol Gel) TO MOUTH SORES QID MT Last administered on 05/12/18 21:06; Start 05/08/18 at 13:00 Benztropine Mesylate (Cogentin) 1 mg QHS PO Last administered on 05/12/18 21:06; Start 05/11/18 at 21:00 Cetylpyridinium Chloride (Cepacol) 1 karoline Q2HP PRN PO COUGH Last administered on 05/13/18 00:26; Start 05/01/18 at 18:30 Chlorhexidine Gluconate (Peridex Oral Rinse) 15 ml PC SSP Last administered on 05/12/18at 18:45; Start 05/09/18 at 08:30 Clonazepam (KlonoPIN) 1 mg BIDP PRN PO ANXIETY/AGITATION Last administered on 04/30/18 11:40; Start 04/24/18 at 18:45; Stop 04/30/18 at 23:38; Status DC Clonazepam (KlonoPIN) 1 mg QID PO Last administered on 05/12/18at 21:06; Start 05/02/18 at 13:00 Diphenhydramine HCl (Benadryl) 25 mg TID PO Last administered on 05/12/18at 21:06; Start 05/05/18 at 16:00 Diphenhydramine HCl (Benadryl) 50 mg Q6HP PRN PO ITCHING Last administered on 05/13/18 03:06; Start 05/03/18 at 23:30 Fluticasone Propionate (Flonase 0.05% Nasal [place]) 1 spray BIDP PRN NARES post nasal drip Last administered on 05/12/18 18:45; Start 05/08/18 at 14:00 Haloperidol (Haldol) 10 mg QHS PO Last administered on 05/11/18at 20:11; Start 05/11/18 at 21:00 Home Med (Med Rec Complete!) ASDIRECTED XX ; Start 04/24/18 at 09:45; Stop 04/24/18 at 09:45; Status DC Ibuprofen (Advil) 400 mg Q8HP PRN PO PAIN OR DISCOMFORT Last administered on 05/13/18 03:06; Start 04/25/18 at 21:45 Lorazepam (Ativan) 2 mg Q6HP PRN PO ANXIETY/AGITATION Last administered on 05/02/18at 08:50; Start 04/30/18 at 12:45; Stop 05/02/18 at 09:27; Status DC Lurasidone HCl (Latuda) 20 mg BID PO ; Start 04/28/18 at 21:00; Status Cancel Lurasidone HCl (Latuda) 40 mg DAILY@08 PO Last administered on 05/04/18at 08:25; Start 05/02/18 at 08:00; Stop 05/11/18 at 14:10; Status DC Magnesium Hydroxide (Milk Of Magnesia) 30 ml DAILYPRN PRN PO CONSTIPATION Last administered on 1/19/19at 00:17; Start 04/24/18 at 14:00 Menthol/Methyl Salicylate (Bengay Cream) apply to both ankles BIDP PRN TOP PAIN OR DISCOMFORT Last administered on 05/12/18at 18:43; Start 05/10/18 at 17:45 Miscellaneous (Unresolved Clarification Entry) SEE LABEL COMMENTS DAILY XX ; Start 05/08/18 at 09:00; Stop 05/08/18 at 14:17; Status DC Nicotine (Nicoderm Cq 21mg) 1 patch DAILY TD Last administered on 05/12/18at 08:53; Start 04/26/18 at 09:00 Non-Formulary Medication ( See Comment Field Below ) SEE COMMENTS SECTION 1T@10 XX ; Start 05/04/18 at 10:00; Stop 05/05/18 at 09:59; Status UNV Olanzapine (ZyPREXA ZYDIS) 10 mg Q6HP PRN PO ANXIETY/AGITATION; Start 04/30/18 at 12:45 Ondansetron HCl (Zofran Odt) 4 mg Q6H PRN PO NAUSEA Last administered on 05/13/18at 01:05; Start 04/24/18 at 18:45 Oxcarbazepine (Trileptal) 150 mg BID PO ; Start 04/26/18 at 21:00; Stop 04/28/18 at 11:20; Status DC Oxcarbazepine (Trileptal) 150 mg QAM PO ; Start 04/25/18 at 09:00; Stop 04/26/18 at 16:04; Status DC Patient Own Medication (Patient'S Own Med) BENEFIBER PACKET: ADMINIS... BID PO Last administered on 05/12/18at 21:00; Start 05/02/18 at 21:00 Psyllium Hydrophilic Mucilloid (Metamucil) 1 pkt BID PO Last administered on 04/25/18at 11:25; Start 04/25/18 at 09:00; Stop 05/03/18 at 08:13; Status DC Quetiapine Fumarate (SEROquel) 50 mg DAILY@1500 PO Last administered on 04/29/18 at 15:43; Start 04/28/18 at 15:00; Stop 05/01/18 at 15:59; Status DC Quetiapine Fumarate (SEROquel) 50 mg QAM PO Last administered on 05/03/18at 13:27; Start 04/29/18 at 09:00; Stop 05/03/18 at 21:24; Status DC Quetiapine Fumarate (SEROquel) 100 mg QAM PO ; Start 04/28/18 at 09:00; Stop 04/28/18 at 12:01; Status DC Quetiapine Fumarate (SEROquel) 150 mg DAILY@1500 PO ; Start 04/28/18 at 15:00; Status Cancel Quetiapine Fumarate (SEROquel) 150 mg QHS PO Last administered on 04/27/18at 00:09; Start 04/26/18 at 21:00; Stop 04/27/18 at 19:45; Status DC Quetiapine Fumarate (SEROquel) 200 mg QHS PO Last administered on 04/27/18at 20:29; Start 04/27/18 at 21:00; Stop 04/28/18 at 11:21; Status DC Quetiapine Fumarate (SEROquel) 250 mg QHS PO Last administered on 04/29/18at 21:0 1; Start 04/28/18 at 21:00; Stop 05/01/18 at 15:59; Status DC Sucralfate (Carafate Suspension) 1 gm ACHS PO Last administered on 05/13/18at 06:31; Start 04/24/18 at 21:00 Trazodone HCl (Desyrel) 50 mg QHSP PRN PO INSOMNIA; Start 04/24/18 at 14:00; Status Cancel Allergies Coded Allergies: Aripiprazole (Unverified Allergy, Unknown, 05/05/18) This reaction was never verified. It is SUSPECT. Carbitol (Unverified Allergy, Unknown, 01/13/13) Fluphenazine (Unverified Allergy, Unknown, 05/05/18) UNVERIFIED REACTION. IT IS SUSPECT [place] (Unverified Allergy, Unknown, 05/05/18) UNVERIFIED REACTION. IT IS SUSPECT. Meperidine (Unverified Allergy, Unknown, 01/13/13) Metoclopramide (Unverified Allergy, Unknown, 01/13/13) Olanzapine (Unverified Allergy, Unknown, 05/05/18) This is an unverified reaction. It is SUSPECT Penicillins (Unverified Allergy, Unknown, 01/13/13) Ranitidine (Unverified Allergy, Unknown, 01/13/13) Risperidone (Unverified Allergy, Unknown, 05/05/18) Unverified reaction. It is SUSPECT. Sertraline (Unverified Allergy, Unknown, 05/05/18) Unverified reaction. It is SUSPECT Valproic Acid (Unverified Allergy, Unknown, 05/05/18) Unverified reaction. It is SUSPECT Acetaminophen (Unverified Adverse Reaction, Intermediate, PT Hx hep C, hep B, 04/24/18) Haloperidol (Verified Adverse Reaction, Intermediate, makes me go crazy, 05/05/18) uNVERIFIED REACTION. IT IS SUSPECT BRENNA FLEMING MD May 13, 2018 10:50
[2018-05-13] MEDS: NICOTINE 21MG/24HR 1 EA TRANSDERMAL TD SCH (12:07)
[2018-05-13] MEDS: FLUTICASONE PROP 0.05% NASAL SPRAY 16 GM (FLONASE) NARES PRN ×2 (12:09→22:57)
[2018-05-13] MEDS: BENEFIBER PO SCH ×2 (12:10→22:56)
[2018-05-13] MEDS: ANALGESIC BALM CRM 120 GM TOP PRN ×2 (12:16→22:57)
[2018-05-13 18:00] VITALS: BP 133/74
[2018-05-13] MEDS: BENZTROPINE 0.5 MG TAB PO SCH (20:59)
[2018-05-13] MEDS: HALOPERIDOL 10 MG TAB PO SCH (20:59)
[2018-05-14] MEDS: diphenhydrAMINE 50 MG CAP PO PRN (01:01)
[2018-05-14] MEDS: ALBUTEROL 90 MCG/ACT 8GM HFA INHALER INH PRN ×2 (01:01→20:35)
[2018-05-14] MEDS: CEPACOL LOZENGE PO PRN ×3 (01:01→20:36)
[2018-05-14 06:00] VITALS: BP 120/65
[2018-05-14] MEDS: SUCRALFATE SUSP 1GM/10ML UD PO SCH ×4 (06:58→20:31)
[2018-05-14] MEDS: IBUPROFEN 400 MG TAB PO PRN ×2 (07:00→21:39)
[2018-05-14] MEDS: clonazePAM 1 MG TAB PO SCH ×4 (10:23→20:32)
[2018-05-14] MEDS: diphenhydrAMINE 25 MG CAP PO SCH ×3 (10:23→20:32)
[2018-05-14] MEDS: CHLORHEXIDINE GLUCONATE 0.12 % 15ML UDC (PERIDEX ORAL RINSE) SSP SCH ×3 (10:23→18:30)
[2018-05-14] MEDS: BENZOCAINE 10% 9GM TUBE (ANBESOL) MT SCH ×4 (10:23→20:32)
[2018-05-14] MEDS: ANALGESIC BALM CRM 120 GM TOP PRN ×2 (10:24→22:46)
[2018-05-14] MEDS: NICOTINE 21MG/24HR 1 EA TRANSDERMAL TD SCH (10:24)
[2018-05-14] MEDS: BENEFIBER PO SCH ×2 (10:24→20:32)
[2018-05-14] MEDS: ONDANSETRON 4 MG ORAL DISINTEGRATING TAB (Q0162 PER 1MG) PO PRN (11:42)
[2018-05-14 18:11] VITALS: BP 124/72
[2018-05-14] MEDS: HALOPERIDOL 10 MG TAB PO SCH (20:30)
[2018-05-14] MEDS: BENZTROPINE 1 MG TAB PO SCH (20:30)
[2018-05-14] MEDS: FLUTICASONE PROP 0.05% NASAL SPRAY 16 GM (FLONASE) NARES PRN (20:35)
[2018-05-15] MEDS: CEPACOL LOZENGE PO PRN ×3 (03:09→20:17)
[2018-05-15 06:48] VITALS: BP 131/73
[2018-05-15] MEDS: SUCRALFATE SUSP 1GM/10ML UD PO SCH ×4 (06:51→20:15)
[2018-05-15] MEDS: BENEFIBER PO SCH ×2 (09:55→20:16)
[2018-05-15] MEDS: clonazePAM 1 MG TAB PO SCH ×4 (09:57→23:07)
[2018-05-15] MEDS: NICOTINE 21MG/24HR 1 EA TRANSDERMAL TD SCH (09:57)
[2018-05-15] MEDS: BENZOCAINE 10% 9GM TUBE (ANBESOL) MT SCH ×4 (09:57→20:19)
[2018-05-15] MEDS: diphenhydrAMINE 25 MG CAP PO SCH ×3 (09:57→23:07)
[2018-05-15] MEDS: CHLORHEXIDINE GLUCONATE 0.12 % 15ML UDC (PERIDEX ORAL RINSE) SSP SCH ×3 (09:58→18:24)
[2018-05-15] MEDS: IBUPROFEN 400 MG TAB PO PRN ×2 (09:59→20:17)
[2018-05-15] MEDS: ALBUTEROL 90 MCG/ACT 8GM HFA INHALER INH PRN ×2 (10:08→17:44)
[2018-05-15] MEDS: FLUTICASONE PROP 0.05% NASAL SPRAY 16 GM (FLONASE) NARES PRN ×2 (10:11→20:17)
--- NOTE | 2018-05-15 11:48 | MHIPNPDOC ---
[facility] Progress Note Progress Note DATE OF SERVICE: 05/15/18 HISTORY: As per Dr. Oliver: " "I have a problem with my boyfriend, I don't want to live with him." The patient was brought by the police as her called the police because for the last two weeks the patient has been manic. She is on prednisone for her hepatitis C. She is reportedly all around the place, cleaning her house. She reports that she feels like she is on speed. It is difficult to follow her as the patient is very tangential, circumstantial, and there is flight of ideas. The patient reports she has been allergic to most of the medications. She also reports she took herself off from Prozac as it was not helping her. She has started taking cannabidiol (CBD) oil which helps her mood as per the patient. Currently denies any suicidal or homicidal ideas." VITAL SIGNS: See below. NEW TEST RESULTS: None. CURRENT MEDICATIONS: See below. MENTAL STATUS EXAMINATION: Patient is a 47-year old female, who is alert and cooperative during the interview, appears older than stated age, dressed in personal clothing Speech: Is rapid, pressured, normal volume Language skills are intact Thought processes including: tangential, irrational Thought content: Patient continues to obsess about delusional allergies to antipsychotic medications. Description of abnormal or psychotic thoughts: Patient is fixed on deadly side- effects of her medication, particularly Haldol and Latuda. Judgment: poor Insight: poor Orientation: oriented to person and place Recent and remote memory: limited Attention span and concentration: poor Language: intact Mood: Elevated Affect: mood congruent DIAGNOSES: 1. Bipolar Disorder 2. Cannabis Use Disorder ASSESSMENT: Patient was interviewed while walking in the hallway. She did remember this provider from our previous interview last week. Patient continuous to be very conversational with rapid, pressured speech. For much of the conversation, Ms. Doll remained fixated on not wanting to take her medications due to a documented history of side effects. She tangentially spoke about her cell phone and her service animal at home. She states that she is doing better now without the medications and that she expects to do even better in the coming days when it is completely out of her system. At the end of the interview, her attention became fixed on obtaining another pair of pants to use for yoga. MANAGEMENT PLAN: Continue with current management with plan to bring Ms. Doll to court. TIME SPENT: 15 minutes. Vital Signs Vital Signs Date Time Temp Pulse Resp B/P (MAP) Pulse Ox O2 Delivery O2 Flow Rate FiO2 05/15/18 09:27 Room Air 05/15/18 06:48 98.2 94 16 131/73 (92) 05/14/18 06:00 96 Current Medications Current Medications Al Hydrox/Mg Hydrox/Simethicone (Mylanta) 30 ml Q4HP PRN PO HEARTBURN/INDIGESTION Last administered on 05/13/18 01:05; Start 04/24/18 at 14:00 Albuterol Sulfate (Proventil, Ventolin Hfa) 2 puff Q4HP PRN INH SHORTNESS OF BREATH Last administered on 05/15/18 10:08; Start 04/24/18 at 18:45 Aripiprazole (AbiLIFY) 10 mg QHS PO Last administered on 05/09/18 21:00; Start 05/05/18 at 21:00; Stop 05/11/18 at 14:11; Status DC Benzocaine (Anbesol Gel) TO MOUTH SORES QID MT Last administered on 05/15/18 09:57; Start 05/08/18 at 13:00 Benztropine Mesylate (Cogentin) 1 mg QHS PO Last administered on 05/12/18 21:06; Start 05/11/18 at 21:00; Stop 05/14/18 at 15:54; Status DC Benztropine Mesylate (Cogentin) 1 mg QHS PO ; Start 05/14/18 at 21:00 Cetylpyridinium Chloride (Cepacol) 1 karoline Q2HP PRN PO COUGH Last administered on 05/15/18 10:08; Start 05/01/18 at 18:30 Chlorhexidine Gluconate (Peridex Oral Rinse) 15 ml PC SSP Last administered on 05/15/18 09:58; Start 05/09/18 at 08:30 Clonazepam (KlonoPIN) 1 mg BIDP PRN PO ANXIETY/AGITATION Last administered on 04/30/18 11:40; Start 04/24/18 at 18:45; Stop 04/30/18 at 23:38; Status DC Clonazepam (KlonoPIN) 1 mg QID PO Last administered on 05/15/18 09:57; Start 05/02/18 at 13:00 Diphenhydramine HCl (Benadryl) 25 mg TID PO Last administered on 05/15/18at 09:57; Start 05/05/18 at 16:00 Diphenhydramine HCl (Benadryl) 50 mg Q6HP PRN PO ITCHING Last administered on 05/14/18 01:01; Start 05/03/18 at 23:30 Fluticasone Propionate (Flonase 0.05% Nasal [place]) 1 spray BIDP PRN NARES post nasal drip Last administered on 05/15/18 10:11; Start 05/08/18 at 14:00 Haloperidol (Haldol) 10 mg QHS PO Last administered on 05/11/18 20:11; Start 05/11/18 at 21:00 Home Med (Med Rec Complete!) ASDIRECTED XX ; Start 04/24/18 at 09:45; Stop 04/24/18 at 09:45; Status DC Ibuprofen (Advil) 400 mg Q8HP PRN PO PAIN OR DISCOMFORT Last administered on 05/15/18 09:59; Start 04/25/18 at 21:45 Lorazepam (Ativan) 2 mg Q6HP PRN PO ANXIETY/AGITATION Last administered on 05/02/18at 08:50; Start 04/30/18 at 12:45; Stop 05/02/18 at 09:27; Status DC Lurasidone HCl (Latuda) 20 mg BID PO ; Start 04/28/18 at 21:00; Status Cancel Lurasidone HCl (Latuda) 40 mg DAILY@08 PO Last administered on 05/04/18at 08:25; Start 05/02/18 at 08:00; Stop 05/11/18 at 14:10; Status DC Magnesium Hydroxide (Milk Of Magnesia) 30 ml DAILYPRN PRN PO CONSTIPATION Last administered on 05/13/18at 00:17; Start 04/24/18 at 14:00 Menthol/Methyl Salicylate (Bengay Cream) apply to both ankles BIDP PRN TOP PAIN OR DISCOMFORT Last administered on 05/14/18 22:46; Start 05/10/18 at 17:45 Miscellaneous (Unresolved Clarification Entry) SEE LABEL COMMENTS DAILY XX ; Start 05/08/18 at 09:00; Stop 05/08/18 at 14:17; Status DC Miscellaneous (Unresolved Clarification Entry) SEE LABEL COMMENTS DAILY XX ; Start 05/14/18 at 09:00; Stop 05/14/18 at 15:54; Status DC Nicotine (Nicoderm Cq 21mg) 1 patch DAILY TD Last administered on 05/15/18at 09:57; Start 04/26/18 at 09:00 Non-Formulary Medication ( See Comment Field Below ) SEE COMMENTS SECTION 1T@10 XX ; Start 05/04/18 at 10:00; Stop 05/05/18 at 09:59; Status UNV Olanzapine (ZyPREXA ZYDIS) 10 mg Q6HP PRN PO ANXIETY/AGITATION; Start 04/30/18 at 12:45 Ondansetron HCl (Zofran Odt) 4 mg Q6H PRN PO NAUSEA Last administered on 05/14/18at 11:42; Start 04/24/18 at 18:45 Oxcarbazepine (Trileptal) 150 mg BID PO ; Start 04/26/18 at 21:00; Stop 04/28/18 at 11:20; Status DC Oxcarbazepine (Trileptal) 150 mg QAM PO ; Start 04/25/18 at 09:00; Stop 04/26/18 at 16:04; Status DC Patient Own Medication (Patient'S Own Med) BENEFIBER PACKET: ADMINIS... BID PO Last administered on 05/15/18at 09:55; Start 05/02/18 at 21:00 Psyllium Hydrophilic Mucilloid (Metamucil) 1 pkt BID PO Last administered on 04/25/18at 11:25; Start 04/25/18 at 09:00; Stop 05/03/18 at 08:13; Status DC Quetiapine Fumarate (SEROquel) 50 mg DAILY@1500 PO Last administered on 04/29/18at 15:43; Start 04/28/18 at 15:00; Stop 05/01/18 at 15:59; Status DC Quetiapine Fumarate (SEROquel) 50 mg QAM PO Last administered on 05/03/18at 13:27; Start 04/29/18 at 09:00; Stop 05/03/18 at 21:24; Status DC Quetiapine Fumarate (SEROquel) 100 mg QAM PO ; Start 04/28/18 at 09:00; Stop 04/28/18 at 12:01; Status DC Quetiapine Fumarate (SEROquel) 150 mg DAILY@1500 PO ; Start 04/28/18 at 15:00; Status Cancel Quetiapine Fumarate (SEROquel) 150 mg QHS PO Last administered on 04/27/18at 00:09; Start 04/26/18 at 21:00; Stop 04/27/18 at 19:45; Status DC Quetiapine Fumarate (SEROquel) 200 mg QHS PO Last administered on 04/27/18at 20:29; Start 04/27/18 at 21:00; Stop 04/28/18 at 11:21; Status DC Quetiapine Fumarate (SEROquel) 250 mg QHS PO Last administered on 04/29/18at 21:01; Start 04/28/18 at 21:00; Stop 05/01/18 at 15:59; Status DC Sucralfate (Carafate Suspension) 1 gm ACHS PO Last administered on 05/15/18at 06:51; Start 04/24/18 at 21:00 Trazodone HCl (Desyrel) 50 mg QHSP PRN PO INSOMNIA; Start 04/24/18 at 14:00; Status Cancel Allergies Coded Allergies: Aripiprazole (Unverified Allergy, Unknown, 05/05/18) This reaction was never verified. It is SUSPECT. Carbitol (Unverified Allergy, Unknown, 01/13/13) Fluphenazine (Unverified Allergy, Unknown, 05/05/18) UNVERIFIED REACTION. IT IS SUSPECT [place] (Unverified Allergy, Unknown, 05/05/18) UNVERIFIED REACTION. IT IS SUSPECT. Meperidine (Unverified Allergy, Unknown, 01/13/13) Metoclopramide (Unverified Allergy, Unknown, 01/13/13) Olanzapine (Unverified Allergy, Unknown, 05/05/18) This is an unverified reaction. It is SUSPECT Penicillins (Unverified Allergy, Unknown, 01/13/13) Ranitidine (Unverified Allergy, Unknown, 01/13/13) Risperidone (Unverified Allergy, Unknown, 05/05/18) Unverified reaction. It is SUSPECT. Sertraline (Unverified Allergy, Unknown, 05/05/18) Unverified reaction. It is SUSPECT Valproic Acid (Unverified Allergy, Unknown, 05/05/18) Unverified reaction. It is SUSPECT Acetaminophen (Unverified Adverse Reaction, Intermediate, PT Hx hep C, hep B, 04/24/18) Haloperidol (Verified Adverse Reaction, Intermediate, makes me go crazy, 05/05/18) uNVERIFIED REACTION. IT IS SUSPECT GME ATTESTATION GME ATTESTATION My faculty preceptor for this patient encounter was physically present during the encounter and was fully available. All aspects of the patient interview, examination, medical decision making process, and medical care plan development were reviewed and approved by the faculty preceptor. The faculty preceptor is aware and concurs with the plan as stated in the body of this note and will attest to such by his/her cosignature. OXANA ENGLE DO May 15, 2018 11:48
[2018-05-15] MEDS: ANALGESIC BALM CRM 120 GM TOP PRN (15:44)
[2018-05-15] MEDS: ONDANSETRON 4 MG ORAL DISINTEGRATING TAB (Q0162 PER 1MG) PO PRN ×2 (16:54→23:07)
[2018-05-15 18:00] VITALS: BP 129/88
[2018-05-15] MEDS: MOM 30ML SUSPENSION UDC PO PRN (20:16)
[2018-05-15] MEDS: HALOPERIDOL 10 MG TAB PO SCH (21:00)
[2018-05-15] MEDS: BENZTROPINE 1 MG TAB PO SCH (21:00)
[2018-05-15] MEDS: diphenhydrAMINE 50 MG CAP PO PRN (23:07)
[2018-05-16] MEDS: SUCRALFATE SUSP 1GM/10ML UD PO SCH ×4 (06:59→22:21)
[2018-05-16] MEDS: BENEFIBER PO SCH ×2 (09:44→21:00)
[2018-05-16] MEDS: BENZOCAINE 10% 9GM TUBE (ANBESOL) MT SCH ×4 (09:44→22:22)
[2018-05-16] MEDS: clonazePAM 1 MG TAB PO SCH ×4 (09:44→22:28)
[2018-05-16] MEDS: diphenhydrAMINE 25 MG CAP PO SCH ×2 (09:45→15:26)
[2018-05-16] MEDS: NICOTINE 21MG/24HR 1 EA TRANSDERMAL TD SCH (09:45)
[2018-05-16] MEDS: CHLORHEXIDINE GLUCONATE 0.12 % 15ML UDC (PERIDEX ORAL RINSE) SSP SCH ×3 (09:45→18:35)
[2018-05-16] MEDS: ANALGESIC BALM CRM 120 GM TOP PRN ×2 (09:49→22:23)
[2018-05-16] MEDS: IBUPROFEN 400 MG TAB PO PRN (09:49)
[2018-05-16] MEDS: ONDANSETRON 4 MG ORAL DISINTEGRATING TAB (Q0162 PER 1MG) PO PRN (10:17)
--- NOTE | 2018-05-16 17:06 | MHIPNPDOC ---
[facility] Progress Note Progress Note DATE OF SERVICE: 05/16/18 HISTORY: As per Dr. Oliver: " "I have a problem with my boyfriend, I don't want to live with him." The patient was brought by the police as her called the police because for the last two weeks the patient has been manic. She is on prednisone for her hepatitis C. She is reportedly all around the place, cleaning her house. She reports that she feels like she is on speed. It is difficult to follow her as the patient is very tangential, circumstantial, and there is flight of ideas. The patient reports she has been allergic to most of the medications. She also reports she took herself off from Prozac as it was not helping her. She has started taking cannabidiol (CBD) oil which helps her mood as per the patient. Currently denies any suicidal or homicidal ideas." VITAL SIGNS: See below. NEW TEST RESULTS: None. CURRENT MEDICATIONS: See below. MENTAL STATUS EXAMINATION: Patient is a 47-year old female, who is alert and cooperative during the interview, appears older than stated age, dressed in personal clothing Speech: Is rapid, pressured, normal volume Language skills are intact Thought processes including: tangential, irrational Thought content: Patient continues to obsess about delusional allergies to antipsychotic medications. Description of abnormal or psychotic thoughts: Patient is fixed on deadly side- effects of her medication, particularly Haldol and Latuda. Judgment: poor Insight: poor Orientation: oriented to person and place Recent and remote memory: limited Attention span and concentration: poor Language: intact Mood: Elevated Affect: mood congruent DIAGNOSES: 1. Bipolar Disorder 2. Cannabis Use Disorder ASSESSMENT: Patient was interviewed in her room. She remains floridly manic with tangential thought processes and rapid, pressured speech. She states that she is not taking Latuda as it keeps her up all night. She remains unable to distinguish between a medication side effect and her disease process. She was, however, agreeable to being Haldol and Cogentin IM, in the evenings. She continues to deny A/V hallucinations. Ms. Doll is active in the milieu and contracts for safety on the unit. MANAGEMENT PLAN: Begin Haldol 10mg and Cogentin 1 mg IM QHS TIME SPENT: 15 minutes. Vital Signs Vital Signs Date Time Temp Pulse Resp B/P (MAP) Pulse Ox O2 Delivery O2 Flow Rate FiO2 05/16/18 10:21 Room Air 05/16/18 07:00 16 05/15/18 18:00 98.5 94 129/88 (102) 05/14/18 06:00 96 Current Medications Current Medications Al Hydrox/Mg Hydrox/Simethicone (Mylanta) 30 ml Q4HP PRN PO HEARTB URN/INDIGESTION Last administered on 05/13/18 01:05; Start 04/24/18 at 14:00 Albuterol Sulfate (Proventil, Ventolin Hfa) 2 puff Q4HP PRN INH SHORTNESS OF BREATH Last administered on 05/15/18 17:44; Start 04/24/18 at 18:45 Aripiprazole (AbiLIFY) 10 mg QHS PO Last administered on 05/09/18 21:00; Start 05/05/18 at 21:00; Stop 05/11/18 at 14:11; Status DC Benzocaine (Anbesol Gel) TO MOUTH SORES QID MT Last administered on 05/16/18 13:24; Start 05/08/18 at 13:00 Benztropine Mesylate (Cogentin) 1 mg QHS IM ; Start 05/16/18 at 21:00 Benztropine Mesylate (Cogentin) 1 mg QHS PO Last administered on 05/12/18 21:06; Start 05/11/18 at 21:00; Stop 05/14/18 at 15:54; Status DC Benztropine Mesylate (Cogentin) 1 mg QHS PO Last administered on 05/15/18at 21:00; Start 05/14/18 at 21:00; Stop 05/16/18 at 11:23; Status DC Cetylpyridinium Chloride (Cepacol) 1 karoline Q2HP PRN PO COUGH Last administered on 05/15/18 20:17; Start 05/01/18 at 18:30 Chlorhexidine Gluconate (Peridex Oral Rinse) 15 ml PC SSP Last administered on 05/16/18 13:24; Start 05/09/18 at 08:30 Clonazepam (KlonoPIN) 1 mg BIDP PRN PO ANXIETY/AGITATION Last administered on 04/30/18at 11:40; Start 04/24/18 at 18:45; Stop 04/30/18 at 23:38; Status DC Clonazepam (KlonoPIN) 1 mg QID PO Last administered on 05/16/18at 13:24; Start 05/02/18 at 13:00 Diphenhydramine HCl (Benadryl) 25 mg TID PO Last administered on 05/16/18at 15:26; Start 05/05/18 at 16:00 Diphenhydramine HCl (Benadryl) 50 mg Q6HP PRN PO ITCHING Last administered on 05/15/18at 23:07; Start 05/03/18 at 23:30 Fluticasone Propionate (Flonase 0.05% Nasal [place]) 1 spray BIDP PRN NARES post nasal drip Last administered on 05/15/18 20:17; Start 05/08/18 at 14:00 Haloperidol (Haldol) 10 mg QHS IM ; Start 05/16/18 at 21:00 Haloperidol (Haldol) 10 mg QHS PO Last administered on 05/11/18at 20:11; Start 05/11/18 at 21:00; Stop 05/16/18 at 11:20; Status DC Home Med (Med Rec Complete!) ASDIRECTED XX ; Start 04/24/18 at 09:45; Stop 04/24/18 at 09:45; Status DC Ibuprofen (Advil) 400 mg Q8HP PRN PO PAIN OR DISCOMFORT Last administered on 05/16/18at 09:49; Start 04/25/18 at 21:45 Lorazepam (Ativan) 2 mg Q6HP PRN PO ANXIETY/AGITATION Last administered on 05/02/18at 08:50; Start 04/30/18 at 12:45; Stop 05/02/18 at 09:27; Status DC Lurasidone HCl (Latuda) 20 mg BID PO ; Start 04/28/18 at 21:00; Status Cancel Lurasidone HCl (Latuda) 40 mg DAILY@08 PO Last administered on 05/04/18at 08:25; Start 05/02/18 at 08:00; Stop 05/11/18 at 14:10; Status DC Magnesium Hydroxide (Milk Of Magnesia) 30 ml DAILYPRN PRN PO CONSTIPATION Last administered on 05/15/18at 20:16; Start 04/24/18 at 14:00 Menthol/Methyl Salicylate (Bengay Cream) apply to both ankles BIDP PRN TOP PAIN OR DISCOMFORT Last administered on 05/16/18at 09:49; Start 05/10/18 at 17:45 Miscellaneous (Unresolved Clarification Entry) SEE LABEL COMMENTS DAILY XX ; Start 05/08/18 at 09:00; Stop 05/08/18 at 14:17; Status DC Miscellaneous (Unresolved Clarification Entry) SEE LABEL COMMENTS DAILY XX ; Start 05/14/18 at 09:00; Stop 05/14/18 at 15:54; Status DC Nicotine (Nicoderm Cq 21mg) 1 patch DAILY TD Last administered on 05/16/18at 09:45; Start 04/26/18 at 09:00 Non-Formulary Medication ( See Comment Field Below ) SEE COMMENTS SECTION 1T@10 XX ; Start 05/04/18 at 10:00; Stop 05/05/18 at 09:59; Status UNV Olanzapine (ZyPREXA ZYDIS) 10 mg Q6HP PRN PO ANXIETY/AGITATION; Start 04/30/18 at 12:45 Ondansetron HCl (Zofran Odt) 4 mg Q6H PRN PO NAUSEA Last administered on 05/16/18at 10:17; Start 04/24/18 at 18:45 Oxcarbazepine (Trileptal) 150 mg BID PO ; Start 04/26/18 at 21:00; Stop 04/28/18 at 11:20; Status DC Oxcarbazepine (Trileptal) 150 mg QAM PO ; Start 04/25/18 at 09:00; Stop 04/26/18 at 16:04; Status DC Patient Own Medication (Patient'S Own Med) BENEFIBER PACKET: ADMINIS... BID PO Last administered on 05/16/18at 09:44; Start 05/02/18 at 21:00 Psyllium Hydrophilic Mucilloid (Metamucil) 1 pkt BID PO Last administered on 04/25/18at 11:25; Start 04/25/18 at 09:00; Stop 05/03/18 at 08:13; Status DC Quetiapine Fumarate (SEROquel) 50 mg DAILY@1500 PO Last administered on 04/29/18at 15:43; Start 04/28/18 at 15:00; Stop 05/01/18 at 15:59; Status DC Quetiapine Fumarate (SEROquel) 50 mg QAM PO Last administered on 05/03/18at 13:27; Start 04/29/18 at 09:00; Stop 05/03/18 at 21:24; Status DC Quetiapine Fumarate (SEROquel) 100 mg QAM PO ; Start 04/28/18 at 09:00; Stop 04/28/18 at 12:01; Status DC Quetiapine Fumarate (SEROquel) 150 mg DAILY@1500 PO ; Start 04/28/18 at 15:00; Status Cancel Quetiapine Fumarate (SEROquel) 150 mg QHS PO Last administered on 04/27/18at 00:09; Start 04/26/18 at 21:00; Stop 04/27/18 at 19:45; Status DC Quetiapine Fumarate (SEROquel) 200 mg QHS PO Last administered on 04/27/18at 20:29; Start 04/27/18 at 21:00; Stop 04/28/18 at 11:21; Status DC Quetiapine Fumarate (SEROquel) 250 mg QHS PO Last administered on 04/29/18at 21:01; Start 04/28/18 at 21:00; Stop 05/01/18 at 15:59; Status DC Sucralfate (Carafate Suspension) 1 gm ACHS PO Last administered on 05/16/18at 11:54; Start 04/24/18 at 21:00 Trazodone HCl (Desyrel) 50 mg QHSP PRN PO INSOMNIA; Start 04/24/18 at 14:00; Status Cancel Allergies Coded Allergies: Aripiprazole (Unverified Allergy, Unknown, 05/05/18) This reaction was never verified. It is SUSPECT. Carbitol (Unverified Allergy, Unknown, 01/13/13) Fluphenazine (Unverified Allergy, Unknown, 05/05/18) UNVERIFIED REACTION. IT IS SUSPECT [place] (Unverified Allergy, Unknown, 05/05/18) UNVERIFIED REACTION. IT IS SUSPECT. Meperidine (Unverified Allergy, Unknown, 01/13/13) Metoclopramide (Unverified Allergy, Unknown, 01/13/13) Olanzapine (Unverified Allergy, Unknown, 05/05/18) This is an unverified reaction. It is SUSPECT Penicillins (Unverified Allergy, Unknown, 01/13/13) Ranitidine (Unverified Allergy, Unknown, 01/13/13) Risperidone (Unverified Allergy, Unknown, 05/05/18) Unverified reaction. It is SUSPECT. Sertraline (Unverified Allergy, Unknown, 05/05/18) Unverified reaction. It is SUSPECT Valproic Acid (Unverified Allergy, Unknown, 05/05/18) Unverified reaction. It is SUSPECT Acetaminophen (Unverified Adverse Reaction, Intermediate, PT Hx hep C, hep B, 04/24/18) Haloperidol (Verified Adverse Reaction, Intermediate, makes me go crazy, 05/05/18) uNVERIFIED REACTION. IT IS SUSPECT GME ATTESTATION GME ATTESTATION My faculty preceptor for this patient encounter was physically present during t he encounter and was fully available. All aspects of the patient interview, examination, medical decision making process, and medical care plan development were reviewed and approved by the faculty preceptor. The faculty preceptor is aware and concurs with the plan as stated in the body of this note and will attest to such by his/her cosignature. OXANA ENGLE DO May 16, 2018 17:06
[2018-05-16 18:31] VITALS: BP 134/81
[2018-05-16] MEDS: BENZTROPINE MESYLATE 2MG/2ML VIAL IM SCH (21:38)
[2018-05-16] MEDS: HALOPERIDOL 5 MG/ML VIAL (J1630) IM SCH (21:38)
[2018-05-16] MEDS: CEPACOL LOZENGE PO PRN (22:22)
[2018-05-16] MEDS: MOM 30ML SUSPENSION UDC PO PRN (22:23)
[2018-05-16] MEDS: FLUTICASONE PROP 0.05% NASAL SPRAY 16 GM (FLONASE) NARES PRN (22:23)
[2018-05-17] MEDS: diphenhydrAMINE 50 MG CAP PO PRN (00:19)
[2018-05-17] MEDS: IBUPROFEN 400 MG TAB PO PRN ×3 (00:19→20:14)
[2018-05-17] MEDS: diphenhydrAMINE 25 MG CAP PO SCH ×4 (00:20→20:12)
[2018-05-17] MEDS: ONDANSETRON 4 MG ORAL DISINTEGRATING TAB (Q0162 PER 1MG) PO PRN (00:20)
[2018-05-17] MEDS: ALBUTEROL 90 MCG/ACT 8GM HFA INHALER INH PRN ×4 (00:21→20:12)
[2018-05-17] MEDS: SUCRALFATE SUSP 1GM/10ML UD PO SCH ×4 (06:42→20:12)
[2018-05-17] MEDS: CEPACOL LOZENGE PO PRN ×3 (06:46→20:12)
[2018-05-17 07:00] VITALS: BP 91/58
[2018-05-17] MEDS: BENEFIBER PO SCH ×2 (08:11→22:10)
[2018-05-17] MEDS: clonazePAM 1 MG TAB PO SCH ×4 (08:12→20:14)
[2018-05-17] MEDS: ANALGESIC BALM CRM 120 GM TOP PRN (08:13)
[2018-05-17] MEDS: CHLORHEXIDINE GLUCONATE 0.12 % 15ML UDC (PERIDEX ORAL RINSE) SSP SCH ×3 (08:13→18:10)
[2018-05-17] MEDS: BENZOCAINE 10% 9GM TUBE (ANBESOL) MT SCH ×4 (08:13→20:11)
[2018-05-17] MEDS: NICOTINE 21MG/24HR 1 EA TRANSDERMAL TD SCH (08:13)
[2018-05-17] MEDS: FLUTICASONE PROP 0.05% NASAL SPRAY 16 GM (FLONASE) NARES PRN ×2 (08:13→20:12)
--- NOTE | 2018-05-17 18:22 | MHIPNPDOC ---
[facility] Progress Note Progress Note DATE OF SERVICE: 05/17/18 HISTORY: As per Dr. Oliver: " "I have a problem with my boyfriend, I don't want to live with him." The patient was brought by the police as her called the police because for the last two weeks the patient has been manic. She is on prednisone for her hepatitis C. She is reportedly all around the place, cleaning her house. She reports that she feels like she is on speed. It is difficult to follow her as the patient is very tangential, circumstantial, and there is flight of ideas. The patient reports she has been allergic to most of the medications. She also reports she took herself off from Prozac as it was not helping her. She has started taking cannabidiol (CBD) oil which helps her mood as per the patient. Currently denies any suicidal or homicidal ideas." VITAL SIGNS: See below. NEW TEST RESULTS: None. CURRENT MEDICATIONS: See below. MENTAL STATUS EXAMINATION: Patient is a 47-year old female, who is alert and cooperative during the interview, appears older than stated age, dressed in personal clothing Speech: Is rapid, pressured, normal volume Language skills are intact Thought processes including: tangential, irrational Thought content: She is focused about a cotton program technician that she says she is going to once she leaves the Hospital. She has bizarre and paranoid delusions. She is not homicidal, not suicidal but she might be responding to internal stimuli Description of abnormal or psychotic thoughts: paranoid and bizarre delusions, she might be responding to internal stimuli but she denies AV hallucinations Judgment: poor Insight: poor Orientation: oriented to person and place Recent and remote memory: limited Attention span and concentration: poor Language: intact Mood: Elevated, labile Affect: mood congruent DIAGNOSES: 1. Bipolar Disorder 2. Cannabis Use Disorder ASSESSMENT: Patient accwepted her Haldol Im and Cogentin IM last night. Once again she makes a strange requirement, to administer the medication around 4:30 p.m. because if it is administered at night she won't be able to be up all night and I tell her that one of the reasons she needs to take the medication at night is because she needs to sleep.Patient continues to be tangential, circumstantial, derailed. she is not suicidal, not homicidal but she is psychotic and needs to be treated until she is safe to herself and to other people. MANAGEMENT PLAN: continue with Haldol 10mg and Cogentin 1 mg IM QHS TIME SPENT: 15 minutes. Vital Signs Vital Signs Date Time Temp Pulse Resp B/P (MAP) Pulse Ox O2 Delivery O2 Flow Rate FiO2 05/17/18 10:10 Room Air 05/17/18 07:00 99.7 90 16 91/58 (69) 05/14/18 06:00 96 Current Medications Current Medications Al Hydrox/Mg Hydrox/Simethicone (Mylanta) 30 ml Q4HP PRN PO HEARTBURN/INDIGESTION Last administered on 05/13/18 01:05; Start 04/24/18 at 14:00 Albuterol Sulfate (Proventil, Ventolin Hfa) 2 puff Q4HP PRN INH SHORTNESS OF BREATH Last administered on 05/17/18 15:32; Start 04/24/18 at 18:45 Aripiprazole (AbiLIFY) 10 mg QHS PO Last administered on 05/09/18 21:00; Start 05/05/18 at 21:00; Stop 05/11/18 at 14:11; Status DC Benzocaine (Anbesol Gel) TO MOUTH SORES QID MT Last administered on 05/17/18 16:39; Start 05/08/18 at 13:00 Benztropine Mesylate (Cogentin) 1 mg QHS IM Last administered on 05/16/18at 21:38; Start 05/16/18 at 21:00 Benztropine Mesylate (Cogentin) 1 mg QHS PO Last administered on 05/12/18at 21:06; Start 05/11/18 at 21:00; Stop 05/14/18 at 15:54; Status DC Benztropine Mesylate (Cogentin) 1 mg QHS PO Last administered on 05/15/18 21:00; Start 05/14/18 at 21:00; Stop 05/16/18 at 11:23; Status DC Cetylpyridinium Chloride (Cepacol) 1 karoline Q2HP PRN PO COUGH Last administered on 05/17/18 15:32; Start 05/01/18 at 18:30 Chlorhexidine Gluconate (Peridex Oral Rinse) 15 ml PC SSP Last administered on 05/17/18 12:25; Start 05/09/18 at 08:30 Clonazepam (KlonoPIN) 1 mg BIDP PRN PO ANXIETY/AGITATION Last administered on 04/30/18 11:40; Start 04/24/18 at 18:45; Stop 04/30/18 at 23:38; Status DC Clonazepam (KlonoPIN) 1 mg QID PO Last administered on 05/17/18 16:39; Start 05/02/18 at 13:00 Diphenhydramine HCl (Benadryl) 25 mg TID PO Last administered on 05/17/18 15:32; Start 05/05/18 at 16:00 Diphenhydramine HCl (Benadryl) 50 mg Q6HP PRN PO ITCHING Last administered on 05/17/18 00:19; Start 05/03/18 at 23:30 Fluticasone Propionate (Flonase 0.05% Nasal [place]) 1 spray BIDP PRN NARES post nasal drip Last administered on 05/17/18 08:13; Start 05/08/18 at 14:00 Haloperidol (Haldol) 10 mg QHS IM Last administered on 05/16/18 21:38; Start 05/16/18 at 21:00 Haloperidol (Haldol) 10 mg QHS PO Last administered on 05/11/18 20:11; Start 05/11/18 at 21:00; Stop 05/16/18 at 11:20; Status DC Home Med (Med Rec Complete!) ASDIRECTED XX ; Start 04/24/18 at 09:45; Stop 04/24/18 at 09:45; Status DC Ibuprofen (Advil) 400 mg Q8HP PRN PO PAIN OR DISCOMFORT Last administered on 05/17/18 08:12; Start 04/25/18 at 21:45 Lorazepam (Ativan) 2 mg Q6HP PRN PO ANXIETY/AGITATION Last administered on 05/02/18 08:50; Start 04/30/18 at 12:45; Stop 05/02/18 at 09:27; Status DC Lurasidone HCl (Latuda) 20 mg BID PO ; Start 04/28/18 at 21:00; Status Cancel Lurasidone HCl (Latuda) 40 mg DAILY@08 PO Last administered on 05/04/18at 08:25; Start 05/02/18 at 08:00; Stop 05/11/18 at 14:10; Status DC Magnesium Hydroxide (Milk Of Magnesia) 30 ml DAILYPRN PRN PO CONSTIPATION Last administered on 05/16/18at 22:23; Start 04/24/18 at 14:00 Menthol/Methyl Salicylate (Bengay Cream) apply to both ankles BIDP PRN TOP PAIN OR DISCOMFORT Last administered on 05/17/18at 08:13; Start 05/10/18 at 17:45 Miscellaneous (Unresolved Clarification Entry) SEE LABEL COMMENTS DAILY XX ; Start 05/08/18 at 09:00; Stop 05/08/18 at 14:17; Status DC Miscellaneous (Unresolved Clarification Entry) SEE LABEL COMMENTS DAILY XX ; Start 05/14/18 at 09:00; Stop 05/14/18 at 15:54; Status DC Nicotine (Nicoderm Cq 21mg) 1 patch DAILY TD Last administered on 05/17/18at 08:13; Start 04/26/18 at 09:00 Non-Formulary Medication ( See Comment Field Below ) SEE COMMENTS SECTION 1T@10 XX ; Start 05/04/18 at 10:00; Stop 05/05/18 at 09:59; Status UNV Olanzapine (ZyPREXA ZYDIS) 10 mg Q6HP PRN PO ANXIETY/AGITATION; Start 04/30/18 at 12:45 Ondansetron HCl (Zofran Odt) 4 mg Q6H PRN PO NAUSEA Last administered on 05/17/18at 00:20; Start 04/24/18 at 18:45 Oxcarbazepine (Trileptal) 150 mg BID PO ; Start 04/26/18 at 21:00; Stop 04/28/18 at 11:20; Status DC Oxcarbazepine (Trileptal) 150 mg QAM PO ; Start 04/25/18 at 09:00; Stop 04/26/18 at 16:04; Status DC Patient Own Medication (Patient'S Own Med) BENEFIBER PACKET: ADMINIS... BID PO Last administered on 05/17/18at 08:11; Start 05/02/18 at 21:00 Psyllium Hydrophilic Mucilloid (Metamucil) 1 pkt BID PO Last administered on 04/25/18at 11:25; Start 04/25/18 at 09:00; Stop 05/03/18 at 08:13; Status DC Quetiapine Fumarate (SEROquel) 50 mg DAILY@1500 PO Last administered on 04/29/18at 15:43; Start 04/28/18 at 15:00; Stop 05/01/18 at 15:59; Status DC Quetiapine Fumarate (SEROquel) 50 mg QAM PO Last administered on 05/03/18at 13:27; Start 04/29/18 at 09:00; Stop 05/03/18 at 21:24; Status DC Quetiapine Fumarate (SEROquel) 100 mg QAM PO ; Start 04/28/18 at 09:00; Stop 04/28/18 at 12:01; Status DC Quetiapine Fumarate (SEROquel) 150 mg DAILY@1500 PO ; Start 04/28/18 at 15:00; Status Cancel Quetiapine Fumarate (SEROquel) 150 mg QHS PO Last administered on 04/27/18at 00:09; Start 04/26/18 at 21:00; Stop 04/27/18 at 19:45; Status DC Quetiapine Fumarate (SEROquel) 200 mg QHS PO Last administered on 04/27/18at 20:29; Start 04/27/18 at 21:00; Stop 04/28/18 at 11:21; Status DC Quetiapine Fumarate (SEROquel) 250 mg QHS PO Last administered on 04/29/18at 21:01; Start 04/28/18 at 21:00; Stop 05/01/18 at 15:59; Status DC Sucralfate (Carafate Suspension) 1 gm ACHS PO Last administered on 05/17/18at 17:06; Start 04/24/18 at 21:00 Trazodone HCl (Desyrel) 50 mg QHSP PRN PO INSOMNIA; Start 04/24/18 at 14:00; Status Cancel Allergies Coded Allergies: Aripiprazole (Unverified Allergy, Unknown, 05/05/18) This reaction was never verified. It is SUSPECT. Carbitol (Unverified Allergy, Unknown, 01/13/13) Fluphenazine (Unverified Allergy, Unknown, 05/05/18) UNVERIFIED REACTION. IT IS SUSPECT [place] (Unverified Allergy, Unknown, 05/05/18) UNVERIFIED REACTION. IT IS SUSPECT. Meperidine (Unverified Allergy, Unknown, 01/13/13) Metoclopramide (Unverified Allergy, Unknown, 01/13/13) Olanzapine (Unverified Allergy, Unknown, 05/05/18) This is an unverified reaction. It is SUSPECT Penicillins (Unverified Allergy, Unknown, 01/13/13) Ranitidine (Unverified Allergy, Unknown, 01/13/13) Risperidone (Unverified Allergy, Unknown, 05/05/18) Unverified reaction. It is SUSPECT. Sertraline (Unverified Allergy, Unknown, 05/05/18) Unverified reaction. It is SUSPECT Valproic Acid (Unverified Allergy, Unknown, 05/05/18) Unverified reaction. It is SUSPECT Acetaminophen (Unverified Adverse Reaction, Intermediate, PT Hx hep C, hep B, 04/24/18) Haloperidol (Verified Adverse Reaction, Intermediate, makes me go crazy, 05/05/18) uNVERIFIED REACTION. IT IS SUSPECT BRENNA FLEMING MD May 17, 2018 18:22
[2018-05-17 18:45] VITALS: BP 123/77
[2018-05-17] MEDS: MAALOX 30 ML SUSP *UDC PO PRN (20:12)
[2018-05-17] MEDS: BENZTROPINE MESYLATE 2MG/2ML VIAL IM SCH (21:00)
[2018-05-17] MEDS: HALOPERIDOL 5 MG/ML VIAL (J1630) IM SCH (21:54)
[2018-05-18] MEDS: ALBUTEROL 90 MCG/ACT 8GM HFA INHALER INH PRN ×3 (03:58→20:20)
[2018-05-18] MEDS: CEPACOL LOZENGE PO PRN ×2 (03:59→10:59)
[2018-05-18] MEDS: ONDANSETRON 4 MG ORAL DISINTEGRATING TAB (Q0162 PER 1MG) PO PRN ×2 (04:11→17:49)
[2018-05-18] MEDS: MOM 30ML SUSPENSION UDC PO PRN (05:53)
[2018-05-18] MEDS: ANALGESIC BALM CRM 120 GM TOP PRN (05:53)
[2018-05-18 06:47] VITALS: BP 115/63
[2018-05-18] MEDS: SUCRALFATE SUSP 1GM/10ML UD PO SCH ×4 (08:20→21:27)
[2018-05-18] MEDS: BENZOCAINE 10% 9GM TUBE (ANBESOL) MT SCH ×4 (08:28→21:28)
[2018-05-18] MEDS: BENEFIBER PO SCH ×2 (08:29→21:00)
[2018-05-18] MEDS: CHLORHEXIDINE GLUCONATE 0.12 % 15ML UDC (PERIDEX ORAL RINSE) SSP SCH ×3 (08:30→17:47)
[2018-05-18] MEDS: NICOTINE 21MG/24HR 1 EA TRANSDERMAL TD SCH (08:30)
[2018-05-18] MEDS: clonazePAM 1 MG TAB PO SCH ×4 (08:30→20:20)
[2018-05-18] MEDS: diphenhydrAMINE 25 MG CAP PO SCH ×3 (08:30→20:20)
--- NOTE | 2018-05-18 13:02 | MHIPNPDOC ---
[facility] Progress Note Progress Note DATE OF SERVICE: 05/18/18 HISTORY: As per Dr. Oliver: " "I have a problem with my boyfriend, I don't want to live with him." The patient was brought by the police as her called the police because for the last two weeks the patient has been manic. She is on prednisone for her hepatitis C. She is reportedly all around the place, cleaning her house. She reports that she feels like she is on speed. It is difficult to follow her as the patient is very tangential, circumstantial, and there is flight of ideas. The patient reports she has been allergic to most of the medications. She also reports she took herself off from Prozac as it was not helping her. She has started taking cannabidiol (CBD) oil which helps her mood as per the patient. Currently denies any suicidal or homicidal ideas." VITAL SIGNS: See below. NEW TEST RESULTS: None. CURRENT MEDICATIONS: See below. MENTAL STATUS EXAMINATION: Patient is a 47-year old female, who is alert and cooperative during the interview, appears older than stated age, dressed in personal clothing Speech: Is rapid, pressured, normal volume Language skills are intact Thought processes including: tangential, irrational Thought content: She is focused about a tax specialist that she says she is going to once she leaves the Hospital. She has bizarre and paranoid delusions. She is not homicidal, not suicidal but she might be responding to internal stimuli Description of abnormal or psychotic thoughts: paranoid and bizarre delusions, she might be responding to internal stimuli but she denies AV hallucinations Judgment: poor Insight: poor Orientation: oriented to person and place Recent and remote memory: limited Attention span and concentration: poor Language: intact Mood: Elevated, labile Affect: mood congruent DIAGNOSES: 1. Bipolar Disorder 2. Cannabis Use Disorder ASSESSMENT: Patient seen with B[facility] Dropper today to complete second opionion of TOO. Talk to pt about the need for full compliance on her medication, primarily haldol, as ordered by Dr. Xavier allen she not want to go to court for TOO. Pt hyperverbal, tangential, paranoid that she has rashes and tremors from haldol (has tolerated IM dose well each time received so unlikely oral causing symptoms ), poor attention. Reiterated to pt multiple time for the need for full medication compliance and pt agrees to take medication orally when scheduled at dose prescribed by Dr. Park as she states she doesn't want to have to go to court for TOO. Per Dr. Park: "Patient continues to be tangential, circumstantial, derailed. she is not suicidal, not homicidal but she is psychotic and needs to be treated until she is safe to herself and to other people." I agree with Dr. Park's opinion. MANAGEMENT PLAN: continue with Haldol 10mg and Cogentin 1 mg IM QHS recommend possible liquid form of haldol to improve compliance haldol decanoate 100mg IM qmonth once pt compliant on haldol and tolerating TIME SPENT: 30 minutes. Vital Signs Vital Signs Date Time Temp Pulse Resp B/P (MAP) Pulse Ox O2 Delivery O2 Flow Rate FiO2 05/18/18 08:24 Room Air 05/18/18 06:47 99.3 94 20 115/63 (80) 05/14/18 06:00 96 Current Medications Current Medications Al Hydrox/Mg Hydrox/Simethicone (Mylanta) 30 ml Q4HP PRN PO HEARTBURN/INDIGESTION Last administered on 05/17/18 20:12; Start 04/24/18 at 14:00 Albuterol Sulfate (Proventil, Ventolin Hfa) 2 puff Q4HP PRN INH SHORTNESS OF BREATH Last administered on 05/18/18 03:58; Start 04/24/18 at 18:45 Aripiprazole (AbiLIFY) 10 mg QHS PO Last administered on 05/09/18at 21:00; Start 05/05/18 at 21:00; Stop 05/11/18 at 14:11; Status DC Benzocaine (Anbesol Gel) TO MOUTH SORES QID MT Last administered on 05/18/18 08:28; Start 05/08/18 at 13:00 Benztropine Mesylate (Cogentin) 1 mg QHS IM Last administered on 05/17/18at 21:00; Start 05/16/18 at 21:00 Benztropine Mesylate (Cogentin) 1 mg QHS PO Last administered on 05/12/18at 21:06; Start 05/11/18 at 21:00; Stop 05/14/18 at 15:54; Status DC Benztropine Mesylate (Cogentin) 1 mg QHS PO Last administered on 05/15/18at 21:00; Start 05/14/18 at 21:00; Stop 05/16/18 at 11:23; Status DC Cetylpyridinium Chloride (Cepacol) 1 karoline Q2HP PRN PO COUGH Last administered on 05/18/18 10:59; Start 05/01/18 at 18:30 Chlorhexidine Gluconate (Peridex Oral Rinse) 15 ml PC SSP Last administered on 05/18/18 08:30; Start 05/09/18 at 08:30 Clonazepam (KlonoPIN) 1 mg BIDP PRN PO ANXIETY/AGITATION Last administered on 04/30/18 11:40; Start 04/24/18 at 18:45; Stop 04/30/18 at 23:38; Status DC Clonazepam (KlonoPIN) 1 mg QID PO Last administered on 05/18/18 08:30; Start 05/02/18 at 13:00 Diphenhydramine HCl (Benadryl) 25 mg TID PO Last administered on 05/18/18 08:30; Start 05/05/18 at 16:00 Diphenhydramine HCl (Benadryl) 50 mg Q6HP PRN PO ITCHING Last administered on 05/17/18at 00:19; Start 05/03/18 at 23:30 Fluticasone Propionate (Flonase 0.05% Nasal [place]) 1 spray BIDP PRN NARES post nasal drip Last administered on 05/17/18at 20:12; Start 05/08/18 at 14:00 Haloperidol (Haldol) 5 mg QHS IM ; Start 05/18/18 at 21:00 Haloperidol (Haldol) 10 mg QHS IM Last administered on 05/17/18at 21:54; Start 05/16/18 at 21:00; Stop 05/18/18 at 09:33; Status DC Haloperidol (Haldol) 10 mg QHS PO Last administered on 05/11/18at 20:11; Start 05/11/18 at 21:00; Stop 05/16/18 at 11:20; Status DC Home Med (Med Rec Complete!) ASDIRECTED XX ; Start 04/24/18 at 09:45; Stop 04/24/18 at 09:45; Status DC Ibuprofen (Advil) 400 mg Q8HP PRN PO PAIN OR DISCOMFORT Last administered on 05/17/18at 20:14; Start 04/25/18 at 21:45 Lorazepam (Ativan) 2 mg Q6HP PRN PO ANXIETY/AGITATION Last administered on 05/02/18at 08:50; Start 04/30/18 at 12:45; Stop 05/02/18 at 09:27; Status DC Lurasidone HCl (Latuda) 20 mg BID PO ; Start 04/28/18 at 21:00; Status Cancel Lurasidone HCl (Latuda) 40 mg DAILY@08 PO Last administered on 05/04/18at 08:25; Start 05/02/18 at 08:00; Stop 05/11/18 at 14:10; Status DC Magnesium Hydroxide (Milk Of Magnesia) 30 ml DAILYPRN PRN PO CONSTIPATION Last administered on 05/18/18at 05:53; Start 04/24/18 at 14:00 Menthol/Methyl Salicylate (Bengay Cream) apply to both ankles BIDP PRN TOP PAIN OR DISCOMFORT Last administered on 05/18/18at 05:53; Start 05/10/18 at 17:45 Miscellaneous (Unresolved Clarification Entry) SEE LABEL COMMENTS DAILY XX ; Start 05/08/18 at 09:00; Stop 05/08/18 at 14:17; Status DC Miscellaneous (Unresolved Clarification Entry) SEE LABEL COMMENTS DAILY XX ; Start 05/14/18 at 09:00; Stop 05/14/18 at 15:54; Status DC Nicotine (Nicoderm Cq 21mg) 1 patch DAILY TD Last administered on 05/18/18at 08:30; Start 04/26/18 at 09:00 Non-Formulary Medication ( See Comment Field Below ) SEE COMMENTS SECTION 1T@10 XX ; Start 05/04/18 at 10:00; Stop 05/05/18 at 09:59; Status UNV Olanzapine (ZyPREXA ZYDIS) 10 mg Q6HP PRN PO ANXIETY/AGITATION; Start 04/30/18 at 12:45 Ondansetron HCl (Zofran Odt) 4 mg Q6H PRN PO NAUSEA Last administered on 05/18/18at 04:11; Start 04/24/18 at 18:45 Oxcarbazepine (Trileptal) 150 mg BID PO ; Start 04/26/18 at 21:00; Stop 04/28/18 at 11:20; Status DC Oxcarbazepine (Trileptal) 150 mg QAM PO ; Start 04/25/18 at 09:00; Stop 04/26/18 at 16:04; Status DC Patient Own Medication (Patient'S Own Med) BENEFIBER PACKET: ADMINIS... BID PO Last administered on 05/18/18at 08:29; Start 05/02/18 at 21:00 Psyllium Hydrophilic Mucilloid (Metamucil) 1 pkt BID PO Last administered on 04/25/18at 11:25; Start 04/25/18 at 09:00; Stop 05/03/18 at 08:13; Status DC Quetiapine Fumarate (SEROquel) 50 mg DAILY@1500 PO Last administered on 04/29/18at 15:43; Start 04/28/18 at 15:00; Stop 05/01/18 at 15:59; Status DC Quetiapine Fumarate (SEROquel) 50 mg QAM PO Last administered on 05/03/18at 13:27; Start 04/29/18 at 09:00; Stop 05/03/18 at 21:24; Status DC Quetiapine Fumarate (SEROquel) 100 mg QAM PO ; Start 04/28/18 at 09:00; Stop 04/28/18 at 12:01; Status DC Quetiapine Fumarate (SEROquel) 150 mg DAILY@1500 PO ; Start 04/28/18 at 15:00; Status Cancel Quetiapine Fumarate (SEROquel) 150 mg QHS PO Last administered on 04/27/18at 00:09; Start 04/26/18 at 21:00; Stop 04/27/18 at 19:45; Status DC Quetiapine Fumarate (SEROquel) 200 mg QHS PO Last administered on 04/27/18at 20:29; Start 04/27/18 at 21:00; Stop 04/28/18 at 11:21; Status DC Quetiapine Fumarate (SEROquel) 250 mg QHS PO Last administered on 04/29/18at 21:01; Start 04/28/18 at 21:00; Stop 05/01/18 at 15:59; Status DC Sucralfate (Carafate Suspension) 1 gm ACHS PO Last administered on 05/18/18at 11:11; Start 04/24/18 at 21:00 Trazodone HCl (Desyrel) 50 mg QHSP PRN PO INSOMNIA; Start 04/24/18 at 14:00; Status Cancel Allergies Coded Allergies: Aripiprazole (Unverified Allergy, Unknown, 05/05/18) This reaction was never verified. It is SUSPECT. Carbitol (Unverified Allergy, Unknown, 01/13/13) Fluphenazine (Unverified Allergy, Unknown, 05/05/18) UNVERIFIED REACTION. IT IS SUSPECT [place] (Unverified Allergy, Unknown, 05/05/18) UNVERIFIED REACTION. IT IS SUSPECT. Meperidine (Unverified Allergy, Unknown, 01/13/13) Metoclopramide (Unverified Allergy, Unknown, 01/13/13) Olanzapine (Unverified Allergy, Unknown, 05/05/18) This is an unverified reaction. It is SUSPECT Penicillins (Unverified Allergy, Unknown, 01/13/13) Ranitidine (Unverified Allergy, Unknown, 01/13/13) Risperidone (Unverified Allergy, Unknown, 05/05/18) Unverified reaction. It is SUSPECT. Sertraline (Unverified Allergy, Unknown, 05/05/18) Unverified reaction. It is SUSPECT Valproic Acid (Unverified Allergy, Unknown, 05/05/18) Unverified reaction. It is SUSPECT Acetaminophen (Unverified Adverse Reaction, Intermediate, PT Hx hep C, hep B, 04/24/18) Haloperidol (Verified Adverse Reaction, Intermediate, makes me go crazy, 05/05/18) uNVERIFIED REACTION. IT IS SUSPECT SKYE KHALIL DO May 18, 2018 1:02 pm
[2018-05-18 18:00] VITALS: BP 128/74
[2018-05-18] MEDS: HALOPERIDOL 5 MG/ML VIAL (J1630) IM SCH (21:28)
[2018-05-18] MEDS: BENZTROPINE MESYLATE 2MG/2ML VIAL IM SCH (21:29)
[2018-05-18] MEDS: FLUTICASONE PROP 0.05% NASAL SPRAY 16 GM (FLONASE) NARES PRN (21:41)
[2018-05-18] MEDS: IBUPROFEN 400 MG TAB PO PRN (21:42)
[2018-05-19] MEDS: ONDANSETRON 4 MG ORAL DISINTEGRATING TAB (Q0162 PER 1MG) PO PRN ×3 (00:02→23:17)
[2018-05-19] MEDS: ANALGESIC BALM CRM 120 GM TOP PRN ×3 (00:04→22:31)
[2018-05-19] MEDS: CEPACOL LOZENGE PO PRN (05:26)
[2018-05-19] MEDS: ALBUTEROL 90 MCG/ACT 8GM HFA INHALER INH PRN (05:26)
[2018-05-19] MEDS: IBUPROFEN 400 MG TAB PO PRN ×2 (06:38→22:29)
[2018-05-19 06:42] VITALS: BP 132/63
[2018-05-19] MEDS: SUCRALFATE SUSP 1GM/10ML UD PO SCH ×4 (07:46→22:28)
[2018-05-19] MEDS: CHLORHEXIDINE GLUCONATE 0.12 % 15ML UDC (PERIDEX ORAL RINSE) SSP SCH ×3 (07:50→17:41)
[2018-05-19] MEDS: BENEFIBER PO SCH ×2 (09:09→21:00)
[2018-05-19] MEDS: NICOTINE 21MG/24HR 1 EA TRANSDERMAL TD SCH (09:10)
[2018-05-19] MEDS: clonazePAM 1 MG TAB PO SCH ×4 (09:11→21:17)
[2018-05-19] MEDS: BENZOCAINE 10% 9GM TUBE (ANBESOL) MT SCH ×4 (09:11→22:30)
[2018-05-19] MEDS: diphenhydrAMINE 25 MG CAP PO SCH ×3 (09:11→23:16)
[2018-05-19] MEDS ORDERED: HALOPERIDOL DECANOATE 100 MG/ML VIAL (J1631) IM SCH (15:00)
[2018-05-19] MEDS ORDERED: BENZTROPINE MESYLATE 2MG/2ML VIAL IM ONE (15:00)
--- NOTE | 2018-05-19 16:56 | MHIPNPDOC ---
[facility] Progress Note Progress Note DATE OF SERVICE: 05/18/18 HISTORY: As per Dr. Oliver: " "I have a problem with my boyfriend, I don't want to live with him." The patient was brought by the police as her called the police because for the last two weeks the patient has been manic. She is on prednisone for her hepatitis C. She is reportedly all around the place, cleaning her house. She reports that she feels like she is on speed. It is difficult to follow her as the patient is very tangential, circumstantial, and there is flight of ideas. The patient reports she has been allergic to most of the medications. She also reports she took herself off from Prozac as it was not helping her. She has started taking cannabidiol (CBD) oil which helps her mood as per the patient. Currently denies any suicidal or homicidal ideas." VITAL SIGNS: See below. NEW TEST RESULTS: None. CURRENT MEDICATIONS: See below. MENTAL STATUS EXAMINATION: Patient is a 47-year old female, who is alert and cooperative during the interview, appears older than stated age, dressed in personal clothing Speech: Is less rapid, pressured, normal volume Language skills are intact Thought processes including: tangential, irrational Thought content: She is focused about a subacute nurse that she says she is going to once she leaves the Hospital. She has bizarre and paranoid delusions. She is not homicidal, not suicidal but she might be responding to internal stimuli Description of abnormal or psychotic thoughts: paranoid and bizarre delusions, she might be responding to internal stimuli but she denies AV hallucinations Judgment: poor Insight: poor Orientation: oriented to person and place Recent and remote memory: limited Attention span and concentration: poor Language: intact Mood: Elevated, labile Affect: mood congruent DIAGNOSES: 1. Bipolar Disorder 2. Cannabis Use Disorder ASSESSMENT: Patient says she would prefer to have Haldol 5 mgs IM instead of 10 mgs. Patient has been requesting Haldol, because she thinks that Oral Haldol would provoke canker sores. She has not taken it every day and she refuses to take the [place] Haldol. Just on Tuesday, she was reporting medication side effects. Will try tomorrow again. MANAGEMENT PLAN: continue with Haldol 5mg and Cogentin 1 mg IM QHS TIME SPENT: 15 minutes. Vital Signs Vital Signs Date Time Temp Pulse Resp B/P (MAP) Pulse Ox O2 Delivery O2 Flow Rate FiO2 05/19/18 06:42 98.2 100 18 132/63 (86) 05/18/18 08:24 Room Air 05/14/18 06:00 96 Current Medications Current Medications Al Hydrox/Mg Hydrox/Simethicone (Mylanta) 30 ml Q4HP PRN PO HEARTBURN/INDIGEST ION Last administered on 05/17/18 20:12; Start 04/24/18 at 14:00 Albuterol Sulfate (Proventil, Ventolin Hfa) 2 puff Q4HP PRN INH SHORTNESS OF BREATH Last administered on 05/19/18 05:26; Start 04/24/18 at 18:45 Aripiprazole (AbiLIFY) 10 mg QHS PO Last administered on 05/09/18 21:00; Start 05/05/18 at 21:00; Stop 05/11/18 at 14:11; Status DC Benzocaine (Anbesol Gel) TO MOUTH SORES QID MT Last administered on 05/19/18 13:32; Start 05/08/18 at 13:00 Benztropine Mesylate (Cogentin) 1 mg QHS IM Last administered on 05/18/18 21:29; Start 05/16/18 at 21:00 Benztropine Mesylate (Cogentin) 1 mg QHS PO Last administered on 05/12/18 21:06; Start 05/11/18 at 21:00; Stop 05/14/18 at 15:54; Status DC Benztropine Mesylate (Cogentin) 1 mg QHS PO Last administered on 05/15/18 21:00; Start 05/14/18 at 21:00; Stop 05/16/18 at 11:23; Status DC Cetylpyridinium Chloride (Cepacol) 1 karoline Q2HP PRN PO COUGH Last administered on 05/19/18 05:26; Start 05/01/18 at 18:30 Chlorhexidine Gluconate (Peridex Oral Rinse) 15 ml PC SSP Last administered on 05/19/18 13:32; Start 05/09/18 at 08:30 Clonazepam (KlonoPIN) 1 mg BIDP PRN PO ANXIETY/AGITATION Last administered on 04/30/18 11:40; Start 04/24/18 at 18:45; Stop 04/30/18 at 23:38; Status DC Clonazepam (KlonoPIN) 1 mg QID PO Last administered on 05/19/18at 13:31; Start 05/02/18 at 13:00 Diphenhydramine HCl (Benadryl) 25 mg TID PO Last administered on 05/19/18 09:11; Start 05/05/18 at 16:00 Diphenhydramine HCl (Benadryl) 50 mg Q6HP PRN PO ITCHING Last administered on 05/17/18 00:19; Start 05/03/18 at 23:30 Fluticasone Propionate (Flonase 0.05% Nasal [place]) 1 spray BIDP PRN NARES post nasal drip Last administered on 05/18/18at 21:41; Start 05/08/18 at 14:00 Haloperidol (Haldol) 5 mg QHS IM Last administered on 05/18/18at 21:28; Start 05/18/18 at 21:00 Haloperidol (Haldol) 10 mg QHS IM Last administered on 05/17/18at 21:54; Start 05/16/18 at 21:00; Stop 05/18/18 at 09:33; Status DC Haloperidol (Haldol) 10 mg QHS PO Last administered on 05/11/18at 20:11; Start 05/11/18 at 21:00; Stop 05/16/18 at 11:20; Status DC Haloperidol Decanoate (Haldol Decanoate) 100 mg Q28D@1500 IM ; Start 05/19/18 at 15:00 Home Med (Med Rec Complete!) ASDIRECTED XX ; Start 04/24/18 at 09:45; Stop 04/24/18 at 09:45; Status DC Ibuprofen (Advil) 400 mg Q8HP PRN PO PAIN OR DISCOMFORT Last administered on 05/19/18 06:38; Start 04/25/18 at 21:45 Lorazepam (Ativan) 2 mg Q6HP PRN PO ANXIETY/AGITATION Last administered on 05/02/18 08:50; Start 04/30/18 at 12:45; Stop 05/02/18 at 09:27; Status DC Lurasidone HCl (Latuda) 20 mg BID PO ; Start 04/28/18 at 21:00; Status Cancel Lurasidone HCl (Latuda) 40 mg DAILY@08 PO Last administered on 05/04/18at 08:25; Start 05/02/18 at 08:00; Stop 05/11/18 at 14:10; Status DC Magnesium Hydroxide (Milk Of Magnesia) 30 ml DAILYPRN PRN PO CONSTIPATION Last administered on 05/18/18at 05:53; Start 04/24/18 at 14:00 Menthol/Methyl Salicylate (Bengay Cream) apply to both ankles BIDP PRN TOP PAIN OR DISCOMFORT Last administered on 05/19/18at 09:11; Start 05/10/18 at 17:45 Miscellaneous (Unresolved Clarification Entry) SEE LABEL COMMENTS DAILY XX ; Start 05/08/18 at 09:00; Stop 05/08/18 at 14:17; Status DC Miscellaneous (Unresolved Clarification Entry) SEE LABEL COMMENTS DAILY XX ; Start 05/14/18 at 09:00; Stop 05/14/18 at 15:54; Status DC Nicotine (Nicoderm Cq 21mg) 1 patch DAILY TD Last administered on 05/19/18at 09:10; Start 04/26/18 at 09:00 Non-Formulary Medication ( See Comment Field Below ) SEE COMMENTS SECTION 1T@10 XX ; Start 05/04/18 at 10:00; Stop 05/05/18 at 09:59; Status UNV Olanzapine (ZyPREXA ZYDIS) 10 mg Q6HP PRN PO ANXIETY/AGITATION; Start 04/30/18 at 12:45 Ondansetron HCl (Zofran Odt) 4 mg Q6H PRN PO NAUSEA Last administered on 05/19/18at 10:12; Start 04/24/18 at 18:45 Oxcarbazepine (Trileptal) 150 mg BID PO ; Start 04/26/18 at 21:00; Stop 04/28/18 at 11:20; Status DC Oxcarbazepine (Trileptal) 150 mg QAM PO ; Start 04/25/18 at 09:00; Stop 04/26/18 at 16:04; Status DC Patient Own Medication (Patient'S Own Med) BENEFIBER PACKET: ADMINIS... BID PO Last administered on 05/19/18at 09:09; Start 05/02/18 at 21:00 Psyllium Hydrophilic Mucilloid (Metamucil) 1 pkt BID PO Last administered on 04/25/18at 11:25; Start 04/25/18 at 09:00; Stop 05/03/18 at 08:13; Status DC Quetiapine Fumarate (SEROquel) 50 mg DAILY@1500 PO Last administered on 04/29/18at 15:43; Start 04/28/18 at 15:00; Stop 05/01/18 at 15:59; Status DC Quetiapine Fumarate (SEROquel) 50 mg QAM PO Last administered on 05/03/18at 13:27; Start 04/29/18 at 09:00; Stop 05/03/18 at 21:24; Status DC Quetiapine Fumarate (SEROquel) 100 mg QAM PO ; Start 04/28/18 at 09:00; Stop 04/28/18 at 12:01; Status DC Quetiapine Fumarate (SEROquel) 150 mg DAILY@1500 PO ; Start 04/28/18 at 15:00; Status Cancel Quetiapine Fumarate (SEROquel) 150 mg QHS PO Last administered on 04/27/18at 00:09; Start 04/26/18 at 21:00; Stop 04/27/18 at 19:45; Status DC Quetiapine Fumarate (SEROquel) 200 mg QHS PO Last administered on 04/27/18at 20:29; Start 04/27/18 at 21:00; Stop 04/28/18 at 11:21; Status DC Quetiapine Fumarate (SEROquel) 250 mg QHS PO Last administered on 04/29/18at 21:01; Start 04/28/18 at 21:00; Stop 05/01/18 at 15:59; Status DC Sucralfate (Carafate Suspension) 1 gm ACHS PO Last administered on 05/19/18at 11:50; Start 04/24/18 at 21:00 Trazodone HCl (Desyrel) 50 mg QHSP PRN PO INSOMNIA; Start 04/24/18 at 14:00; Status Cancel Allergies Coded Allergies: Aripiprazole (Unverified Allergy, Unknown, 05/05/18) This reaction was never verified. It is SUSPECT. Carbitol (Unverified Allergy, Unknown, 01/13/13) Fluphenazine (Unverified Allergy, Unknown, 05/05/18) UNVERIFIED REACTION. IT IS SUSPECT [place] (Unverified Allergy, Unknown, 05/05/18) UNVERIFIED REACTION. IT IS SUSPECT. Meperidine (Unverified Allergy, Unknown, 01/13/13) Metoclopramide (Unverified Allergy, Unknown, 01/13/13) Olanzapine (Unverified Allergy, Unknown, 05/05/18) This is an unverified reaction. It is SUSPECT Penicillins (Unverified Allergy, Unknown, 01/13/13) Ranitidine (Unverified Allergy, Unknown, 01/13/13) Risperidone (Unverified Allergy, Unknown, 05/05/18) Unverified reaction. It is SUSPECT. Sertraline (Unverified Allergy, Unknown, 05/05/18) Unverified reaction. It is SUSPECT Valproic Acid (Unverified Allergy, Unknown, 05/05/18) Unverified reaction. It is SUSPECT Acetaminophen (Unverified Adverse Reaction, Intermediate, PT Hx hep C, hep B, 04/24/18) Haloperidol (Verified Adverse Reaction, Intermediate, makes me go crazy, 05/05/18) uNVERIFIED REACTION. IT IS SUSPECT BRENNA FLEMING MD May 19, 2018 15:08
--- NOTE | 2018-05-19 17:05 | MHIPNPDOC ---
[facility] Progress Note Progress Note DATE OF SERVICE: 05/19/18 HISTORY: As per Dr. Oliver: " "I have a problem with my boyfriend, I don't want to live with him." The patient was brought by the police as her called the police because for the last two weeks the patient has been manic. She is on prednisone for her hepatitis C. She is reportedly all around the place, cleaning her house. She reports that she feels like she is on speed. It is difficult to follow her as the patient is very tangential, circumstantial, and there is flight of ideas. The patient reports she has been allergic to most of the medications. She also reports she took herself off from Prozac as it was not helping her. She has started taking cannabidiol (CBD) oil which helps her mood as per the patient. Currently denies any suicidal or homicidal ideas." VITAL SIGNS: See below. NEW TEST RESULTS: None. CURRENT MEDICATIONS: See below. MENTAL STATUS EXAMINATION: Patient is a 47-year old female, who is alert and cooperative during the interview, appears older than stated age, dressed in personal clothing Speech: Is less rapid,less pressured, normal volume Language skills are intact Thought processes including: tangential, irrational Thought content: Happy thoughts about her giving her back her wedding band. Anxious thoughts about medication side effects. Cognitive distortions. Paranoid thoughts are still present but they are less frequent and less intense. Description of abnormal or psychotic thoughts: Delusional, she doesn't seem to be responding to internal stimuli today. Judgment: poor Insight: poor Orientation: oriented to person and place Recent and remote memory: limited Attention span and concentration: poor Language: intact Mood: "I'm OK" Affect: Full, reactive, congruent with mood DIAGNOSES: 1. Bipolar Disorder 2. Cannabis Use Disorder ASSESSMENT: Patient accepted Haldol Decanoate IM injection today because she says she prefers the IM formulation to the PO but she complains on pain on her buttocks from the injections. Despite complaining about the pain, she says that she prefers the medications via IM than PO because the "oral Haldol has caused me problems with my tongue and I can't talk afterwrds". I explained that this is a side effect from Haldol but it is not related to being IM or PO, it can be prevented with Cogentin or Benadryl. She has always requested Cogentin and she agrees to take it orally if she takes the Haldol Decanoate. She also is courious as if she would be able to take Benadryl too and I tell her she will be able to take Benadryl, but not too much because otherwise she will become sleepy. MANAGEMENT PLAN: Haldol Decanoate 100 mgs IM and Cogentin 2 mgs IM now TIME SPENT: 15 minutes. Vital Signs Vital Signs Date Time Temp Pulse Resp B/P (MAP) Pulse Ox O2 Delivery O2 Flow Rate FiO2 05/19/18 06:42 98.2 100 18 132/63 (86) 05/18/18 08:24 Room Air 05/14/18 06:00 96 Current Medications Current Medications Al Hydrox/Mg Hydrox/Simethicone (Mylanta) 30 ml Q4HP PRN PO HEARTBURN/INDIGESTION Last administered on 05/17/18at 20:12; Start 04/24/18 at 14:00 Albuterol Sulfate (Proventil, Ventolin Hfa) 2 puff Q4HP PRN INH SHORTNESS OF BREATH Last administered on 05/19/18 05:26; Start 04/24/18 at 18:45 Aripiprazole (AbiLIFY) 10 mg QHS PO Last administered on 05/09/18 21:00; Start 05/05/18 at 21:00; Stop 05/11/18 at 14:11; Status DC Benzocaine (Anbesol Gel) TO MOUTH SORES QID MT Last administered on 05/19/18at 13:32; Start 05/08/18 at 13:00 Benztropine Mesylate (Cogentin) 1 mg QHS IM Last administered on 05/18/18 21:29; Start 05/16/18 at 21:00 Benztropine Mesylate (Cogentin) 1 mg QHS PO Last administered on 05/12/18 21:06; Start 05/11/18 at 21:00; Stop 05/14/18 at 15:54; Status DC Benztropine Mesylate (Cogentin) 1 mg QHS PO Last administered on 05/15/18at 21:00; Start 05/14/18 at 21:00; Stop 05/16/18 at 11:23; Status DC Cetylpyridinium Chloride (Cepacol) 1 karoline Q2HP PRN PO COUGH Last administered on 05/19/18 05:26; Start 05/01/18 at 18:30 Chlorhexidine Gluconate (Peridex Oral Rinse) 15 ml PC SSP Last administered on 05/19/18 13:32; Start 05/09/18 at 08:30 Clonazepam (KlonoPIN) 1 mg BIDP PRN PO ANXIETY/AGITATION Last administered on 04/30/18 11:40; Start 04/24/18 at 18:45; Stop 04/30/18 at 23:38; Status DC Clonazepam (KlonoPIN) 1 mg QID PO Last administered on 05/19/18 13:31; Start 05/02/18 at 13:00 Diphenhydramine HCl (Benadryl) 25 mg TID PO Last administered on 05/19/18 16:09; Start 05/05/18 at 16:00 Diphenhydramine HCl (Benadryl) 50 mg Q6HP PRN PO ITCHING Last administered on 05/17/18 00:19; Start 05/03/18 at 23:30 Fluticasone Propionate (Flonase 0.05% Nasal [place]) 1 spray BIDP PRN NARES post nasal drip Last administered on 05/18/18 21:41; Start 05/08/18 at 14:00 Haloperidol (Haldol) 5 mg QHS IM Last administered on 05/18/18 21:28; Start 05/18/18 at 21:00 Haloperidol (Haldol) 10 mg QHS IM Last administered on 05/17/18 21:54; Start 05/16/18 at 21:00; Stop 05/18/18 at 09:33; Status DC Haloperidol (Haldol) 10 mg QHS PO Last administered on 05/11/18 20:11; Start 05/11/18 at 21:00; Stop 05/16/18 at 11:20; Status DC Haloperidol Decanoate (Haldol Decanoate) 100 mg Q28D@1500 IM Last administered on 05/19/18 15:15; Start 05/19/18 at 15:00 Home Med (Med Rec Complete!) ASDIRECTED XX ; Start 04/24/18 at 09:45; Stop 04/24/18 at 09:45; Status DC Ibuprofen (Advil) 400 mg Q8HP PRN PO PAIN OR DISCOMFORT Last administered on 05/19/18at 06:38; Start 04/25/18 at 21:45 Lorazepam (Ativan) 2 mg Q6HP PRN PO ANXIETY/AGITATION Last administered on 05/02/18at 08:50; Start 04/30/18 at 12:45; Stop 05/02/18 at 09:27; Status DC Lurasidone HCl (Latuda) 20 mg BID PO ; Start 04/28/18 at 21:00; Status Cancel Lurasidone HCl (Latuda) 40 mg DAILY@08 PO Last administered on 05/04/18at 08:25; Start 05/02/18 at 08:00; Stop 05/11/18 at 14:10; Status DC Magnesium Hydroxide (Milk Of Magnesia) 30 ml DAILYPRN PRN PO CONSTIPATION Last administered on 05/18/18at 05:53; Start 04/24/18 at 14:00 Menthol/Methyl Salicylate (Bengay Cream) apply to both ankles BIDP PRN TOP PAIN OR DISCOMFORT Last administered on 05/19/18at 09:11; Start 05/10/18 at 17:45 Miscellaneous (Unresolved Clarification Entry) SEE LABEL COMMENTS DAILY XX ; Start 05/08/18 at 09:00; Stop 05/08/18 at 14:17; Status DC Miscellaneous (Unresolved Clarification Entry) SEE LABEL COMMENTS DAILY XX ; Start 05/14/18 at 09:00; Stop 05/14/18 at 15:54; Status DC Nicotine (Nicoderm Cq 21mg) 1 patch DAILY TD Last administered on 05/19/18at 09:10; Start 04/26/18 at 09:00 Non-Formulary Medication ( See Comment Field Below ) SEE COMMENTS SECTION 1T@10 XX ; Start 05/04/18 at 10:00; Stop 05/05/18 at 09:59; Status UNV Olanzapine (ZyPREXA ZYDIS) 10 mg Q6HP PRN PO ANXIETY/AGITATION; Start 04/30/18 at 12:45 Ondansetron HCl (Zofran Odt) 4 mg Q6H PRN PO NAUSEA Last administered on 9at 10:12; Start 04/24/18 at 18:45 Oxcarbazepine (Trileptal) 150 mg BID PO ; Start 04/26/18 at 21:00; Stop 04/28/18 at 11:20; Status DC Oxcarbazepine (Trileptal) 150 mg QAM PO ; Start 04/25/18 at 09:00; Stop 04/26/18 at 16:04; Status DC Patient Own Medication (Patient'S Own Med) BENEFIBER PACKET: ADMINIS... BID PO Last administered on 05/19/18at 09:09; Start 05/02/18 at 21:00 Psyllium Hydrophilic Mucilloid (Metamucil) 1 pkt BID PO Last administered on 04/25/18at 11:25; Start 04/25/18 at 09:00; Stop 05/03/18 at 08:13; Status DC Quetiapine Fumarate (SEROquel) 50 mg DAILY@1500 PO Last administered on 04/29/18at 15:43; Start 04/28/18 at 15:00; Stop 05/01/18 at 15:59; Status DC Quetiapine Fumarate (SEROquel) 50 mg QAM PO Last administered on 05/03/18at 13:27; Start 04/29/18 at 09:00; Stop 05/03/18 at 21:24; Status DC Quetiapine Fumarate (SEROquel) 100 mg QAM PO ; Start 04/28/18 at 09:00; Stop 04/28 at 12:01; Status DC Quetiapine Fumarate (SEROquel) 150 mg DAILY@1500 PO ; Start 04/28/18 at 15:00; Status Cancel Quetiapine Fumarate (SEROquel) 150 mg QHS PO Last administered on 04/27/18at 00:09; Start 04/26/18 at 21:00; Stop 04/27/18 at 19:45; Status DC Quetiapine Fumarate (SEROquel) 200 mg QHS PO Last administered on 04/27/18at 20:29; Start 04/27/18 at 21:00; Stop 04/28/18 at 11:21; Status DC Quetiapine Fumarate (SEROquel) 250 mg QHS PO Last administered on 04/29/18at 21:01; Start 04/28/18 at 21:00; Stop 05/01/18 at 15:59; Status DC Sucralfate (Carafate Suspension) 1 gm ACHS PO Last administered on 05/19/18at 11:50; Start 04/24/18 at 21:00 Trazodone HCl (Desyrel) 50 mg QHSP PRN PO INSOMNIA; Start 04/24/18 at 14:00; Status Cancel Allergies Coded Allergies: Aripiprazole (Unverified Allergy, Unknown, 05/05/18) This reaction was never verified. It is SUSPECT. Carbitol (Unverified Allergy, Unknown, 01/13/13) Fluphenazine (Unverified Allergy, Unknown, 05/05/18) UNVERIFIED REACTION. IT IS SUSPECT [place] (Unverified Allergy, Unknown, 05/05/18) UNVERIFIED REACTION. IT IS SUSPECT. Meperidine (Unverified Allergy, Unknown, 01/13/13) Metoclopramide (Unverified Allergy, Unknown, 01/13/13) Olanzapine (Unverified Allergy, Unknown, 05/05/18) This is an unverified reaction. It is SUSPECT Penicillins (Unverified Allergy, Unknown, 01/13/13) Ranitidine (Unverified Allergy, Unknown, 01/13/13) Risperidone (Unverified Allergy, Unknown, 05/05/18) Unverified reaction. It is SUSPECT. Sertraline (Unverified Allergy, Unknown, 05/05/18) Unverified reaction. It is SUSPECT Valproic Acid (Unverified Allergy, Unknown, 05/05/18) Unverified reaction. It is SUSPECT Acetaminophen (Unverified Adverse Reaction, Intermediate, PT Hx hep C, hep B, 04/24/18) Haloperidol (Verified Adverse Reaction, Intermediate, makes me go crazy, 05/05/18) uNVERIFIED REACTION. IT IS SUSPECT BRENNA FLEMING MD May 19, 2018 17:05
[2018-05-19 18:22] VITALS: BP 134/92
[2018-05-19] MEDS: BENZTROPINE MESYLATE 2MG/2ML VIAL IM SCH (21:00)
[2018-05-19] MEDS: HALOPERIDOL 5 MG/ML VIAL (J1630) IM SCH (21:00)
[2018-05-19] MEDS: MOM 30ML SUSPENSION UDC PO PRN (22:29)
[2018-05-19] MEDS: FLUTICASONE PROP 0.05% NASAL SPRAY 16 GM (FLONASE) NARES PRN (22:36)
[2018-05-19] MEDS: diphenhydrAMINE 50 MG CAP PO PRN (23:16)
[2018-05-20] MEDS: BENZTROPINE MESYLATE 2MG/2ML VIAL IM SCH (01:30)
[2018-05-20] MEDS: HALOPERIDOL 5 MG/ML VIAL (J1630) IM SCH (01:30)
[2018-05-20] MEDS: SUCRALFATE SUSP 1GM/10ML UD PO SCH ×4 (06:30→21:51)
[2018-05-20 06:50] VITALS: BP 116/62
[2018-05-20] MEDS: BENEFIBER PO SCH ×2 (08:37→21:53)
[2018-05-20] MEDS: ALBUTEROL 90 MCG/ACT 8GM HFA INHALER INH PRN (08:37)
[2018-05-20] MEDS: BENZOCAINE 10% 9GM TUBE (ANBESOL) MT SCH ×4 (08:38→21:53)
[2018-05-20] MEDS: NICOTINE 21MG/24HR 1 EA TRANSDERMAL TD SCH (08:38)
[2018-05-20] MEDS: clonazePAM 1 MG TAB PO SCH ×3 (08:38→16:41)
[2018-05-20] MEDS: diphenhydrAMINE 25 MG CAP PO SCH ×2 (08:38→16:40)
[2018-05-20] MEDS: ANALGESIC BALM CRM 120 GM TOP PRN (08:38)
[2018-05-20] MEDS: CHLORHEXIDINE GLUCONATE 0.12 % 15ML UDC (PERIDEX ORAL RINSE) SSP SCH ×3 (08:38→17:39)
[2018-05-20] MEDS: FLUTICASONE PROP 0.05% NASAL SPRAY 16 GM (FLONASE) NARES PRN (08:38)
[2018-05-20] MEDS: diphenhydrAMINE 50 MG CAP PO PRN (11:38)
[2018-05-20] MEDS: ONDANSETRON 4 MG ORAL DISINTEGRATING TAB (Q0162 PER 1MG) PO PRN (13:02)
[2018-05-20 18:00] VITALS: BP 134/88
[2018-05-20] MEDS: IBUPROFEN 400 MG TAB PO PRN (20:13)
[2018-05-20] MEDS: MOM 30ML SUSPENSION UDC PO PRN (21:52)
[2018-05-21] MEDS: diphenhydrAMINE 50 MG CAP PO PRN ×2 (00:26→21:34)
[2018-05-21] MEDS: diphenhydrAMINE 25 MG CAP PO SCH ×4 (00:26→21:34)
[2018-05-21] MEDS: ONDANSETRON 4 MG ORAL DISINTEGRATING TAB (Q0162 PER 1MG) PO PRN ×3 (00:26→21:34)
[2018-05-21] MEDS: clonazePAM 1 MG TAB PO SCH ×5 (00:27→21:34)
[2018-05-21] MEDS: BENZTROPINE 1 MG TAB PO SCH ×3 (00:27→21:34)
[2018-05-21 06:33] VITALS: BP 122/80
[2018-05-21] MEDS: SUCRALFATE SUSP 1GM/10ML UD PO SCH ×4 (06:41→21:00)
[2018-05-21] MEDS: BENEFIBER PO SCH ×2 (09:08→21:00)
[2018-05-21] MEDS: FLUTICASONE PROP 0.05% NASAL SPRAY 16 GM (FLONASE) NARES PRN ×2 (09:09→21:57)
[2018-05-21] MEDS: CHLORHEXIDINE GLUCONATE 0.12 % 15ML UDC (PERIDEX ORAL RINSE) SSP SCH ×3 (09:10→17:35)
[2018-05-21] MEDS: ANALGESIC BALM CRM 120 GM TOP PRN ×2 (09:10→21:58)
[2018-05-21] MEDS: ALBUTEROL 90 MCG/ACT 8GM HFA INHALER INH PRN ×2 (09:11→21:59)
[2018-05-21] MEDS: BENZOCAINE 10% 9GM TUBE (ANBESOL) MT SCH ×4 (09:11→21:00)
[2018-05-21] MEDS: NICOTINE 21MG/24HR 1 EA TRANSDERMAL TD SCH (09:12)
[2018-05-21] MEDS: IBUPROFEN 400 MG TAB PO PRN ×2 (09:37→21:35)
[2018-05-21 18:00] VITALS: BP 119/89
[2018-05-22] MEDS: diphenhydrAMINE 50 MG CAP PO PRN ×2 (03:20→22:19)
[2018-05-22] MEDS: ONDANSETRON 4 MG ORAL DISINTEGRATING TAB (Q0162 PER 1MG) PO PRN (03:20)
[2018-05-22] MEDS: SUCRALFATE SUSP 1GM/10ML UD PO SCH ×4 (07:30→20:18)
[2018-05-22] MEDS: CHLORHEXIDINE GLUCONATE 0.12 % 15ML UDC (PERIDEX ORAL RINSE) SSP SCH ×3 (08:30→18:00)
[2018-05-22] MEDS: clonazePAM 1 MG TAB PO SCH ×4 (09:00→20:18)
[2018-05-22] MEDS: BENZOCAINE 10% 9GM TUBE (ANBESOL) MT SCH ×4 (09:00→20:18)
[2018-05-22] MEDS: BENEFIBER PO SCH ×2 (11:12→20:18)
[2018-05-22] MEDS: diphenhydrAMINE 25 MG CAP PO SCH ×3 (11:15→20:18)
[2018-05-22] MEDS: BENZTROPINE 1 MG TAB PO SCH ×2 (11:16→20:18)
[2018-05-22] MEDS: NICOTINE 21MG/24HR 1 EA TRANSDERMAL TD SCH (11:16)
[2018-05-22] MEDS: FLUTICASONE PROP 0.05% NASAL SPRAY 16 GM (FLONASE) NARES PRN ×2 (11:25→22:23)
[2018-05-22] MEDS: ALBUTEROL 90 MCG/ACT 8GM HFA INHALER INH PRN ×2 (11:27→22:21)
[2018-05-22] MEDS: ANALGESIC BALM CRM 120 GM TOP PRN ×2 (11:29→23:31)
[2018-05-22] MEDS: CEPACOL LOZENGE PO PRN (11:31)
[2018-05-22] MEDS: IBUPROFEN 400 MG TAB PO PRN ×2 (11:31→22:20)
--- NOTE | 2018-05-22 17:44 | MHIPNPDOC ---
[facility] Progress Note Progress Note DATE OF SERVICE: 05/22/18 HISTORY: As per Dr. Oliver: " "I have a problem with my boyfriend, I don't want to live with him." The patient was brought by the police as her called the police because for the last two weeks the patient has been manic. She is on prednisone for her hepatitis C. She is reportedly all around the place, cleaning her house. She reports that she feels like she is on speed. It is difficult to follow her as the patient is very tangential, circumstantial, and there is flight of ideas. The patient reports she has been allergic to most of the medications. She also reports she took herself off from Prozac as it was not helping her. She has started taking cannabidiol (CBD) oil which helps her mood as per the patient. Currently denies any suicidal or homicidal ideas." VITAL SIGNS: See below. NEW TEST RESULTS: None. CURRENT MEDICATIONS: See below. MENTAL STATUS EXAMINATION: Patient is a 47-year old female, who is alert and cooperative during the interview, appears older than stated age, dressed in personal clothing Speech: Is less rapid,less pressured, normal volume Language skills are intact Thought processes including: tangential, irrational Thought content: Anxious thoughts about taking medications, about developing side effects from them. Angry thoughts directed against her , who apparently argued with her during the weekend. Description of abnormal or psychotic thoughts: Delusional Judgment: poor Insight: poor Orientation: oriented to person and place Recent and remote memory: limited Attention span and concentration: poor Language: intact Mood: "I'm disappointed" (she was saying she was disappointed about her ) Affect: Full, reactive, congruent with mood DIAGNOSES: 1. Bipolar Disorder 2. Cannabis Use Disorder ASSESSMENT: Patient is trying to be compliant. she is still psychotic and she was upset this morning with her . When she is angry with her , she doesn't see the need to comply with medications and she doesn't take them or she starts making excuses for not taking them. When she is having a good relationship with her , she is willing to take the medications, because she says she wants to go home. She had the Haldol Decanoate injection on Tuesday afternoon and she has improved but she still is fearful of developing side effects from the medication and is extremely paranoid about it. Once again I explained that if she takes her Cogentin or her Benadryl, she won't develop side effects from Haldol. MANAGEMENT PLAN: Will continue to with Cogentin 1 mg PO BID TIME SPENT: 15 minutes. Vital Signs Vital Signs Date Time Temp Pulse Resp B/P (MAP) Pulse Ox O2 Delivery O2 Flow Rate FiO2 05/21/18 18:00 98.1 80 18 119/89 (99) Room Air Current Medications Current Medications Al Hydrox/Mg Hydrox/Simethicone (Mylanta) 30 ml Q4HP PRN PO HEARTBURN/INDIG ESTION Last administered on 05/17/18 20:12; Start 04/24/18 at 14:00 Albuterol Sulfate (Proventil, Ventolin Hfa) 2 puff Q4HP PRN INH SHORTNESS OF BREATH Last administered on 05/22/18 11:27; Start 04/24/18 at 18:45 Aripiprazole (AbiLIFY) 10 mg QHS PO Last administered on 05/09/18 21:00; Start 05/05/18 at 21:00; Stop 05/11/18 at 14:11; Status DC Benzocaine (Anbesol Gel) TO MOUTH SORES QID MT Last administered on 05/21/18 17:06; Start 05/08/18 at 13:00 Benztropine Mesylate (Cogentin) 1 mg BID PO Last administered on 05/22/18 11:16; Start 05/20/18 at 21:00 Benztropine Mesylate (Cogentin) 1 mg QHS IM Last administered on 05/20/18at 01:30; Start 05/16/18 at 21:00; Stop 05/20/18 at 15:48; Status DC Benztropine Mesylate (Cogentin) 1 mg QHS PO Last administered on 05/12/18 21:06; Start 05/11/18 at 21:00; Stop 05/14/18 at 15:54; Status DC Benztropine Mesylate (Cogentin) 1 mg QHS PO Last administered on 05/15/18at 21:00; Start 05/14/18 at 21:00; Stop 05/16/18 at 11:23; Status DC Cetylpyridinium Chloride (Cepacol) 1 karoline Q2HP PRN PO COUGH Last administered on 05/22/18 11:31; Start 05/01/18 at 18:30 Chlorhexidine Gluconate (Peridex Oral Rinse) 15 ml PC SSP Last administered on 05/22/18 13:37; Start 05/09/18 at 08:30 Clonazepam (KlonoPIN) 1 mg BIDP PRN PO ANXIETY/AGITATION Last administered on 04/30/18 11:40; Start 04/24/18 at 18:45; Stop 04/30/18 at 23:38; Status DC Clonazepam (KlonoPIN) 1 mg QID PO Last administered on 05/22/18 16:13; Start 05/02/18 at 13:00 Diphenhydramine HCl (Benadryl) 25 mg TID PO Last administered on 05/22/18 16:13; Start 05/05/18 at 16:00 Diphenhydramine HCl (Benadryl) 50 mg Q6HP PRN PO EPS Last administered on 05/22/18 03:20; Start 05/03/18 at 23:30 Fluticasone Propionate (Flonase 0.05% Nasal [place]) 1 spray BIDP PRN NARES post nasal drip Last administered on 05/22/18 11:25; Start 05/08/18 at 14:00 Haloperidol (Haldol) 5 mg QHS IM Last administered on 05/20/18 01:30; Start 05/18/18 at 21:00; Stop 05/20/18 at 15:48; Status DC Haloperidol (Haldol) 10 mg QHS IM Last administered on 05/17/18 21:54; Start 05/16/18 at 21:00; Stop 05/18/18 at 09:33; Status DC Haloperidol (Haldol) 10 mg QHS PO Last administered on 05/11/18 20:11; Start 05/11/18 at 21:00; Stop 05/16/18 at 11:20; Status DC Haloperidol Decanoate (Haldol Decanoate) 100 mg Q28D@0900 IM ; Start 06/17/18 at 09:00 Haloperidol Decanoate (Haldol Decanoate) 100 mg Q28D@1500 IM Last administered on 1/25/19at 15:15; Start 05/19/18 at 15:00; Stop 05/20/18 at 16:40; Status DC Home Med (Med Rec Complete!) ASDIRECTED XX ; Start 04/24/18 at 09:45; Stop 04/24/18 at 09:45; Status DC Ibuprofen (Advil) 400 mg Q8HP PRN PO PAIN OR DISCOMFORT Last administered on 05/22/18at 11:31; Start 04/25/18 at 21:45 Lorazepam (Ativan) 2 mg Q6HP PRN PO ANXIETY/AGITATION Last administered on 05/02/18at 08:50; Start 04/30/18 at 12:45; Stop 05/02/18 at 09:27; Status DC Lurasidone HCl (Latuda) 20 mg BID PO ; Start 04/28/18 at 21:00; Status Cancel Lurasidone HCl (Latuda) 40 mg DAILY@08 PO Last administered on 05/04/18at 08:25; Start 05/02/18 at 08:00; Stop 05/11/18 at 14:10; Status DC Magnesium Hydroxide (Milk Of Magnesia) 30 ml DAILYPRN PRN PO CONSTIPATION Last administered on 05/20/18at 21:52; Start 04/24/18 at 14:00 Menthol/Methyl Salicylate (Bengay Cream) apply to both ankles BIDP PRN TOP PAIN OR DISCOMFORT Last administered on 05/22/18at 11:29; Start 05/10/18 at 17:45 Miscellaneous (Unresolved Clarification Entry) SEE LABEL COMMENTS DAILY XX ; Start 05/08/18 at 09:00; Stop 05/08/18 at 14:17; Status DC Miscellaneous (Unresolved Clarification Entry) SEE LABEL COMMENTS DAILY XX ; Start 05/14/18 at 09:00; Stop 05/14/18 at 15:54; Status DC Miscellaneous (Unresolved Clarification Entry) SEE LABEL COMMENTS DAILY XX ; Start 05/20/18 at 09:00; Stop 05/20/18 at 16:42; Status DC Nicotine (Nicoderm Cq 21mg) 1 patch DAILY TD Last administered on 05/22/18at 11:16; Start 04/26/18 at 09:00 Non-Formulary Medication ( See Comment Field Below ) SEE COMMENTS SECTION 1T@10 XX ; Start 05/04/18 at 10:00; Stop 05/05/18 at 09:59; Status UNV Olanzapine (ZyPREXA ZYDIS) 10 mg Q6HP PRN PO ANXIETY/AGITATION; Start 04/30/18 at 12:45 Ondansetron HCl (Zofran Odt) 4 mg Q6H PRN PO NAUSEA Last administered on 05/22/18at 03:20; Start 04/24/18 at 18:45 Oxcarbazepine (Trileptal) 150 mg BID PO ; Start 04/26/18 at 21:00; Stop 04/28/18 at 11:20; Status DC Oxcarbazepine (Trileptal) 150 mg QAM PO ; Start 04/25/18 at 09:00; Stop 04/26/18 at 16:04; Status DC Patient Own Medication (Patient'S Own Med) BENEFIBER PACKET: ADMINIS... BID PO Last administered on 05/22/18at 11:12; Start 05/02/18 at 21:00 Psyllium Hydrophilic Mucilloid (Metamucil) 1 pkt BID PO Last administered on 04/25/18at 11:25; Start 04/25/18 at 09:00; Stop 05/03/18 at 08:13; Status DC Quetiapine Fumarate (SEROquel) 50 mg DAILY@1500 PO Last administered on 04/29/18at 15:43; Start 04/28/18 at 15:00; Stop 05/01/18 at 15:59; Status DC Quetiapine Fumarate (SEROquel) 50 mg QAM PO Last administered on 05/03/18at 13:27; Start 04/29/18 at 09:00; Stop 05/03/18 at 21:24; Status DC Quetiapine Fumarate (SEROquel) 100 mg QAM PO ; Start 04/28/18 at 09:00; Stop 04/28/18 at 12:01; Status DC Quetiapine Fumarate (SEROquel) 150 mg DAILY@1500 PO ; Start 04/28/18 at 15:00; Status Cancel Quetiapine Fumarate (SEROquel) 150 mg QHS PO Last administered on 04/27/18at 00:09; Start 04/26/18 at 21:00; Stop 04/27/18 at 19:45; Status DC Quetiapine Fumarate (SEROquel) 200 mg QHS PO Last administered on 04/27/18at 20:29; Start 04/27/18 at 21:00; Stop 04/28/18 at 11:21; Status DC Quetiapine Fumarate (SEROquel) 250 mg QHS PO Last administered on 04/29/18at 21:01; Start 04/28/18 at 21:00; Stop 05/01/18 at 15:59; Status DC Sucralfate (Carafate Suspension) 1 gm ACHS PO Last administered on 05/22/18at 16:31; Start 04/24/18 at 21:00 Trazodone HCl (Desyrel) 50 mg QHSP PRN PO INSOMNIA; Start 04/24/18 at 14:00; Status Cancel Allergies Coded Allergies: Aripiprazole (Unverified Allergy, Unknown, 05/05/18) This reaction was never verified. It is SUSPECT. Carbitol (Unverified Allergy, Unknown, 01/13/13) Fluphenazine (Unverified Allergy, Unknown, 05/05/18) UNVERIFIED REACTION. IT IS SUSPECT [place] (Unverified Allergy, Unknown, 05/05/18) UNVERIFIED REACTION. IT IS SUSPECT. Meperidine (Unverified Allergy, Unknown, 01/13/13) Metoclopramide (Unverified Allergy, Unknown, 01/13/13) Olanzapine (Unverified Allergy, Unknown, 05/05/18) This is an unverified reaction. It is SUSPECT Penicillins (Unverified Allergy, Unknown, 01/13/13) Ranitidine (Unverified Allergy, Unknown, 01/13/13) Risperidone (Unverified Allergy, Unknown, 05/05/18) Unverified reaction. It is SUSPECT. Sertraline (Unverified Allergy, Unknown, 05/05/18) Unverified reaction. It is SUSPECT Valproic Acid (Unverified Allergy, Unknown, 05/05/18) Unverified reaction. It is SUSPECT Acetaminophen (Unverified Adverse Reaction, Intermediate, PT Hx hep C, hep B, 04/24/18) Haloperidol (Verified Adverse Reaction, Intermediate, makes me go crazy, 05/05/18) uNVERIFIED REACTION. IT IS SUSPECT BRENNA FLEMING MD May 22, 2018 17:44
[2018-05-22 18:34] VITALS: BP 121/68
[2018-05-23] MEDS: CEPACOL LOZENGE PO PRN ×3 (06:22→20:27)
[2018-05-23] MEDS: SUCRALFATE SUSP 1GM/10ML UD PO SCH ×4 (06:22→22:17)
[2018-05-23 06:43] VITALS: BP 119/75
[2018-05-23] MEDS: BENZTROPINE 1 MG TAB PO SCH ×2 (09:25→22:18)
[2018-05-23] MEDS: IBUPROFEN 400 MG TAB PO PRN ×2 (09:25→20:09)
[2018-05-23] MEDS: diphenhydrAMINE 25 MG CAP PO SCH ×3 (09:25→20:09)
[2018-05-23] MEDS: clonazePAM 1 MG TAB PO SCH ×4 (09:26→20:09)
[2018-05-23] MEDS: NICOTINE 21MG/24HR 1 EA TRANSDERMAL TD SCH (09:26)
[2018-05-23] MEDS: CHLORHEXIDINE GLUCONATE 0.12 % 15ML UDC (PERIDEX ORAL RINSE) SSP SCH ×3 (09:27→18:23)
[2018-05-23] MEDS: BENZOCAINE 10% 9GM TUBE (ANBESOL) MT SCH ×4 (09:27→22:18)
[2018-05-23] MEDS: BENEFIBER PO SCH ×2 (09:27→22:18)
--- NOTE | 2018-05-23 12:37 | MHIPNPDOC ---
[facility] Progress Note Progress Note DATE OF SERVICE: 05/23/18 HISTORY: As per Dr. Oliver: " "I have a problem with my boyfriend, I don't want to live with him." The patient was brought by the police as her called the police because for the last two weeks the patient has been manic. She is on prednisone for her hepatitis C. She is reportedly all around the place, cleaning her house. She reports that she feels like she is on speed. It is difficult to follow her as the patient is very tangential, circumstantial, and there is flight of ideas. The patient reports she has been allergic to most of the medications. She also reports she took herself off from Prozac as it was not helping her. She has started taking cannabidiol (CBD) oil which helps her mood as per the patient. Currently denies any suicidal or homicidal ideas." VITAL SIGNS: See below. NEW TEST RESULTS: None. CURRENT MEDICATIONS: See below. MENTAL STATUS EXAMINATION: Patient is a 47-year old female, who is alert and cooperative during the interview, appears older than stated age, dressed in personal clothing Speech: Is less rapid,less pressured, normal volume Language skills are intact Thought processes including: tangential, irrational. Derailed, she has to be re directed several times Thought content: Anxious thoughts about taking medications, about developing side effects from them. Description of abnormal or psychotic thoughts: Delusional Judgment: poor Insight: poor Orientation: oriented to person and place Recent and remote memory: limited Attention span and concentration: poor Language: intact Mood: Anxious(there are ghosts in this room.) Affect: Full, reactive, congruent with mood DIAGNOSES: 1. Bipolar Disorder 2. Cannabis Use Disorder ASSESSMENT: Patient was seen during administrative hearing, she continues to believe that different medications give her side efects, all of them are mood stabilizers or anti psychotics that she needs to overcome this manic state. She has agreed to take Abilify 2.5 mgs PO BID with meals or after meals so that she won't develop gastric problems (she says when she has taken it "I've puked"). Spoke about using Seroquel 25 mgs PO TID if she would not like how she feels with Abilify but if she refuses it or refuses Abilify, she will go to [place]. She understands that if she goes to [place] she would have to take medications too and she says she doesn't want to go there. MANAGEMENT PLAN: Will add Abilify 2.5 mgs PO BID. TIME SPENT: 15 minutes. Vital Signs Vital Signs Date Time Temp Pulse Resp B/P (MAP) Pulse Ox O2 Delivery O2 Flow Rate FiO2 05/23/18 06:43 99.0 53 12 119/75 (90) 05/21/18 18:00 Room Air Current Medications Current Medications Al Hydrox/Mg Hydrox/Simethicone (Mylanta) 30 ml Q4HP PRN PO HEARTBURN/INDIGESTION Last administered on 05/17/18 20:12; Start 04/24/18 at 14:00 Albuterol Sulfate (Proventil, Ventolin Hfa) 2 puff Q4HP PRN INH SHORTNESS OF BREATH Last administered on 05/22/18 22:21; Start 04/24/18 at 18:45 Aripiprazole (AbiLIFY) 10 mg QHS PO Last administered on 05/09/18at 21:00; Start 05/05/18 at 21:00; Stop 05/11/18 at 14:11; Status DC Benzocaine (Anbesol Gel) TO MOUTH SORES QID MT Last administered on 05/23/18 09:27; Start 05/08/18 at 13:00 Benztropine Mesylate (Cogentin) 1 mg BID PO Last administered on 05/23/18 09:25; Start 05/20/18 at 21:00 Benztropine Mesylate (Cogentin) 1 mg QHS IM Last administered on 05/20/18at 01:30; Start 05/16/18 at 21:00; Stop 05/20/18 at 15:48; Status DC Benztropine Mesylate (Cogentin) 1 mg QHS PO Last administered on 05/12/18at 21:06; Start 05/11/18 at 21:00; Stop 05/14/18 at 15:54; Status DC Benztropine Mesylate (Cogentin) 1 mg QHS PO Last administered on 05/15/18 21:00; Start 05/14/18 at 21:00; Stop 05/16/18 at 11:23; Status DC Cetylpyridinium Chloride (Cepacol) 1 karoline Q2HP PRN PO COUGH Last administered on 05/23/18 06:22; Start 05/01/18 at 18:30 Chlorhexidine Gluconate (Peridex Oral Rinse) 15 ml PC SSP Last administered on 05/23/18 09:27; Start 05/09/18 at 08:30 Clonazepam (KlonoPIN) 1 mg BIDP PRN PO ANXIETY/AGITATION Last administered on 04/30/18at 11:40; Start 04/24/18 at 18:45; Stop 04/30/18 at 23:38; Status DC Clonazepam (KlonoPIN) 1 mg QID PO Last administered on 05/23/18 09:26; Start 05/02/18 at 13:00 Diphenhydramine HCl (Benadryl) 25 mg TID PO Last administered on 05/23/18 09:25; Start 05/05/18 at 16:00 Diphenhydramine HCl (Benadryl) 50 mg Q6HP PRN PO EPS Last administered on 05/22/18at 22:19; Start 05/03/18 at 23:30 Fluticasone Propionate (Flonase 0.05% Nasal [place]) 1 spray BIDP PRN NARES post nasal drip Last administered on 05/22/18 22:23; Start 05/08/18 at 14:00 Haloperidol (Haldol) 5 mg QHS IM Last administered on 05/20/18at 01:30; Start 05/18/18 at 21:00; Stop 05/20/18 at 15:48; Status DC Haloperidol (Haldol) 10 mg QHS IM Last administered on 05/17/18at 21:54; Start 05/16/18 at 21:00; Stop 05/18/18 at 09:33; Status DC Haloperidol (Haldol) 10 mg QHS PO Last administered on 05/11/18at 20:11; Start 05/11/18 at 21:00; Stop 05/16/18 at 11:20; Status DC Haloperidol Decanoate (Haldol Decanoate) 100 mg Q28D@0900 IM ; Start 06/17/18 at 09:00 Haloperidol Decanoate (Haldol Decanoate) 100 mg Q28D@1500 IM Last administered on 05/19/18at 15:15; Start 05/19/18 at 15:00; Stop 05/20/18 at 16:40; Status DC Home Med (Med Rec Complete!) ASDIRECTED XX ; Start 04/24/18 at 09:45; Stop 04/24/18 at 09:45; Status DC Ibuprofen (Advil) 400 mg Q8HP PRN PO PAIN OR DISCOMFORT Last administered on 05/23/18at 09:25; Start 04/25/18 at 21:45 Lorazepam (Ativan) 2 mg Q6HP PRN PO ANXIETY/AGITATION Last administered on 05/02/18at 08:50; Start 04/30/18 at 12:45; Stop 05/02/18 at 09:27; Status DC Lurasidone HCl (Latuda) 20 mg BID PO ; Start 04/28/18 at 21:00; Status Cancel Lurasidone HCl (Latuda) 40 mg DAILY@08 PO Last administered on 05/04/18at 08:25; Start 05/02/18 at 08:00; Stop 05/11/18 at 14:10; Status DC Magnesium Hydroxide (Milk Of Magnesia) 30 ml DAILYPRN PRN PO CONSTIPATION Last administered on 05/20/18at 21:52; Start 04/24/18 at 14:00 Menthol/Methyl Salicylate (Bengay Cream) apply to both ankles BIDP PRN TOP PAIN OR DISCOMFORT Last administered on 05/22/18at 23:31; Start 05/10/18 at 17:45 Miscellaneous (Unresolved Clarification Entry) SEE LABEL COMMENTS DAILY XX ; Start 05/08/18 at 09:00; Stop 05/08/18 at 14:17; Status DC Miscellaneous (Unresolved Clarification Entry) SEE LABEL COMMENTS DAILY XX ; Start 05/14/18 at 09:00; Stop 05/14/18 at 15:54; Status DC Miscellaneous (Unresolved Clarification Entry) SEE LABEL COMMENTS DAILY XX ; Start 05/20/18 at 09:00; Stop 05/20/18 at 16:42; Status DC Nicotine (Nicoderm Cq 21mg) 1 patch DAILY TD Last administered on 05/23/18at 09:26; Start 04/26/18 at 09:00 Non-Formulary Medication ( See Comment Field Below ) SEE COMMENTS SECTION 1T@10 XX ; Start 05/04/18 at 10:00; Stop 05/05/18 at 09:59; Status UNV Olanzapine (ZyPREXA ZYDIS) 10 mg Q6HP PRN PO ANXIETY/AGITATION; Start 04/30/18 at 12:45 Ondansetron HCl (Zofran Odt) 4 mg Q6H PRN PO NAUSEA Last administered on 05/22/18at 03:20; Start 04/24/18 at 18:45 Oxcarbazepine (Trileptal) 150 mg BID PO ; Start 04/26/18 at 21:00; Stop 04/28/18 at 11:20; Status DC Oxcarbazepine (Trileptal) 150 mg QAM PO ; Start 04/25/18 at 09:00; Stop 04/26/18 at 16:04; Status DC Patient Own Medication (Patient'S Own Med) BENEFIBER PACKET: ADMINIS... BID PO Last administered on 05/23/18at 09:27; Start 05/02/18 at 21:00 Psyllium Hydrophilic Mucilloid (Metamucil) 1 pkt BID PO Last administered on 04/25/18at 11:25; Start 04/25/18 at 09:00; Stop 05/03/18 at 08:13; Status DC Quetiapine Fumarate (SEROquel) 50 mg DAILY@1500 PO Last administered on 04/29/18at 15:43; Start 04/28/18 at 15:00; Stop 05/01/18 at 15:59; Status DC Quetiapine Fumarate (SEROquel) 50 mg QAM PO Last administered on 05/03/18at 13:27; Start 04/29/18 at 09:00; Stop 05/03/18 at 21:24; Status DC Quetiapine Fumarate (SEROquel) 100 mg QAM PO ; Start 04/28/18 at 09:00; Stop 04/28/18 at 12:01; Status DC Quetiapine Fumarate (SEROquel) 150 mg DAILY@1500 PO ; Start 04/28/18 at 15:00; Status Cancel Quetiapine Fumarate (SEROquel) 150 mg QHS PO Last administered on 04/27/18at 00:09; Start 04/26/18 at 21:00; Stop 04/27/18 at 19:45; Status DC Quetiapine Fumarate (SEROquel) 200 mg QHS PO Last administered on 04/27/18at 20: 29; Start 04/27/18 at 21:00; Stop 04/28/18 at 11:21; Status DC Quetiapine Fumarate (SEROquel) 250 mg QHS PO Last administered on 04/29/18at 21:01; Start 04/28/18 at 21:00; Stop 05/01/18 at 15:59; Status DC Sucralfate (Carafate Suspension) 1 gm ACHS PO Last administered on 05/23/18at 12:19; Start 04/24/18 at 21:00 Trazodone HCl (Desyrel) 50 mg QHSP PRN PO INSOMNIA; Start 04/24/18 at 14:00; Status Cancel Allergies Coded Allergies: Aripiprazole (Unverified Allergy, Unknown, 05/05/18) This reaction was never verified. It is SUSPECT. Carbitol (Unverified Allergy, Unknown, 01/13/13) Fluphenazine (Unverified Allergy, Unknown, 05/05/18) UNVERIFIED REACTION. IT IS SUSPECT [place]oval (Unverified Allergy, Unknown, 05/05/18) UNVERIFIED REACTION. IT IS SUSPECT. Meperidine (Unverified Allergy, Unknown, 01/13/13) Metoclopramide (Unverified Allergy, Unknown, 01/13/13) Olanzapine (Unverified Allergy, Unknown, 05/05/18) This is an unverified reaction. It is SUSPECT Penicillins (Unverified Allergy, Unknown, 01/13/13) Ranitidine (Unverified Allergy, Unknown, 01/13/13) Risperidone (Unverified Allergy, Unknown, 05/05/18) Unverified reaction. It is SUSPECT. Sertraline (Unverified Allergy, Unknown, 05/05/18) Unverified reaction. It is SUSPECT Valproic Acid (Unverified Allergy, Unknown, 05/05/18) Unverified reaction. It is SUSPECT Acetaminophen (Unverified Adverse Reaction, Intermediate, PT Hx hep C, hep B, 04/24/18) Haloperidol (Verified Adverse Reaction, Intermediate, makes me go crazy, 05/05/18) uNVERIFIED REACTION. IT IS SUSPECT BRENNA FLEMING MD May 23, 2018 12:37
[2018-05-23] MEDS ORDERED: PILL CRUSHER/CUTTER 1 EACH XX PRN (14:00)
[2018-05-23] MEDS: ONDANSETRON 4 MG ORAL DISINTEGRATING TAB (Q0162 PER 1MG) PO PRN (16:55)
[2018-05-23 18:00] VITALS: BP 131/84
[2018-05-23] MEDS: MOM 30ML SUSPENSION UDC PO PRN (18:22)
[2018-05-23] MEDS: ALBUTEROL 90 MCG/ACT 8GM HFA INHALER INH PRN (20:04)
[2018-05-23] MEDS: FLUTICASONE PROP 0.05% NASAL SPRAY 16 GM (FLONASE) NARES PRN (20:05)
[2018-05-24] MEDS: ONDANSETRON 4 MG ORAL DISINTEGRATING TAB (Q0162 PER 1MG) PO PRN ×2 (03:20→22:53)
[2018-05-24] MEDS: ALBUTEROL 90 MCG/ACT 8GM HFA INHALER INH PRN ×2 (03:20→09:41)
[2018-05-24 06:51] VITALS: BP 109/57
[2018-05-24] MEDS: SUCRALFATE SUSP 1GM/10ML UD PO SCH ×4 (07:30→21:57)
[2018-05-24] MEDS: CHLORHEXIDINE GLUCONATE 0.12 % 15ML UDC (PERIDEX ORAL RINSE) SSP SCH ×3 (08:30→18:14)
[2018-05-24] MEDS: BENZOCAINE 10% 9GM TUBE (ANBESOL) MT SCH ×4 (09:00→20:34)
[2018-05-24] MEDS: BENEFIBER PO SCH ×2 (09:34→21:58)
[2018-05-24] MEDS: clonazePAM 1 MG TAB PO SCH ×4 (09:34→22:53)
[2018-05-24] MEDS: BENZTROPINE 1 MG TAB PO SCH ×2 (09:36→21:57)
[2018-05-24] MEDS: NICOTINE 21MG/24HR 1 EA TRANSDERMAL TD SCH (09:36)
[2018-05-24] MEDS: diphenhydrAMINE 25 MG CAP PO SCH ×3 (09:36→22:53)
[2018-05-24] MEDS: FLUTICASONE PROP 0.05% NASAL SPRAY 16 GM (FLONASE) NARES PRN ×2 (09:41→22:59)
[2018-05-24] MEDS: IBUPROFEN 400 MG TAB PO PRN (16:25)
[2018-05-24 18:00] VITALS: BP 132/64
--- NOTE | 2018-05-24 19:19 | MHIPNPDOC ---
[facility] Progress Note Progress Note DATE OF SERVICE: 05/24/18 HISTORY: As per Dr. Oliver: " "I have a problem with my boyfriend, I don't want to live with him." The patient was brought by the police as her called the police because for the last two weeks the patient has been manic. She is on prednisone for her hepatitis C. She is reportedly all around the place, cleaning her house. She reports that she feels like she is on speed. It is difficult to follow her as the patient is very tangential, circumstantial, and there is flight of ideas. The patient reports she has been allergic to most of the medications. She also reports she took herself off from Prozac as it was not helping her. She has started taking cannabidiol (CBD) oil which helps her mood as per the patient. Currently denies any suicidal or homicidal ideas." VITAL SIGNS: See below. NEW TEST RESULTS: None. CURRENT MEDICATIONS: See below. MENTAL STATUS EXAMINATION: Patient is a 47-year old female, who is alert and cooperative during the interview, appears older than stated age, dressed in personal clothing Speech: Is less rapid,less pressured, normal volume Language skills are intact Thought processes including: tangential, irrational. Derailed, she has to be re directed several times Thought content: Anxious thoughts about taking medications, about developing side effects from them. Description of abnormal or psychotic thoughts: Delusional Judgment: poor Insight: poor Orientation: oriented to person and place Recent and remote memory: limited Attention span and concentration: poor Language: intact Mood: Anxious(there are ghosts in this room.) Affect: Full, reactive, congruent with mood DIAGNOSES: 1. Bipolar Disorder 2. Cannabis Use Disorder ASSESSMENT: Patient was seen tody and continues to complain about her medication. she told this automobile service writer that she gets a stomachache when she takes her medication. She denies rash or other allergic reaction to the medication. I recommend her once again to take the medication with foods. then, she requests to start taking Latuda and I remind her she complained about Latuda and told me exactly the same things that she's saying about Abilify, besides, I remind her we had an administrative hearing yesterday and she agreed to Abilify and in case Abilify didn't work, she said she would take Seroquel 25 mgs PO TID MANAGEMENT PLAN: Will add Abilify 2.5 mgs PO BID. TIME SPENT: 15 minutes. Vital Signs Vital Signs Date Time Temp Pulse Resp B/P (MAP) Pulse Ox O2 Delivery O2 Flow Rate FiO2 05/24/18 18:00 97.4 95 18 132/64 (86) 05/21/18 18:00 Room Air Current Medications Current Medications Al Hydrox/Mg Hydrox/Simethicone (Mylanta) 30 ml Q4HP PRN PO HEARTBURN/INDIGESTION Last administered on 05/17/18 20:12; Start 04/24/18 at 14:00 Albuterol Sulfate (Proventil, Ventolin Hfa) 2 puff Q4HP PRN INH SHORTNESS OF BREATH Last administered on 05/24/18 09:41; Start 04/24/18 at 18:45 Aripiprazole (AbiLIFY) 2.5 mg BID PO Last administered on 05/24/18 09:35; Start 05/23/18 at 09:00 Aripiprazole (AbiLIFY) 10 mg QHS PO Last administered on 05/09/18 21:00; Start 05/05/18 at 21:00; Stop 05/11/18 at 14:11; Status DC Benzocaine (Anbesol Gel) TO MOUTH SORES QID MT Last administered on 05/24/18 16:00; Start 05/08/18 at 13:00 Benztropine Mesylate (Cogentin) 1 mg BID PO Last administered on 05/24/18 09:36; Start 05/20/18 at 21:00 Benztropine Mesylate (Cogentin) 1 mg QHS IM Last administered on 05/20/18 01:30; Start 05/16/18 at 21:00; Stop 05/20/18 at 15:48; Status DC Benztropine Mesylate (Cogentin) 1 mg QHS PO Last administered on 05/12/18 21:06; Start 05/11/18 at 21:00; Stop 05/14/18 at 15:54; Status DC Benztropine Mesylate (Cogentin) 1 mg QHS PO Last administered on 05/15/18 21:00; Start 05/14/18 at 21:00; Stop 05/16/18 at 11:23; Status DC Cetylpyridinium Chloride (Cepacol) 1 karoline Q2HP PRN PO COUGH Last administered on 05/23/18 20:27; Start 05/01/18 at 18:30 Chlorhexidine Gluconate (Peridex Oral Rinse) 15 ml PC SSP Last administered on 05/24/18 18:14; Start 05/09/18 at 08:30 Clonazepam (KlonoPIN) 1 mg BIDP PRN PO ANXIETY/AGITATION Last administered on 04/30/18 11:40; Start 04/24/18 at 18:45; Stop 04/30/18 at 23:38; Status DC Clonazepam (KlonoPIN) 1 mg QID PO Last administered on 05/24/18 16:01; Start 05/02/18 at 13:00 Diphenhydramine HCl (Benadryl) 25 mg TID PO Last administered on 05/24/18 15:50; Start 05/05/18 at 16:00 Diphenhydramine HCl (Benadryl) 50 mg Q6HP PRN PO EPS Last administered on 05/22/18 22:19; Start 05/03/18 at 23:30 Fluticasone Propionate (Flonase 0.05% Nasal [place]) 1 spray BIDP PRN NARES post nasal drip Last administered on 05/24/18 09:41; Start 05/08/18 at 14:00 Haloperidol (Haldol) 5 mg QHS IM Last administered on 05/20/18 01:30; Start 05/18/18 at 21:00; Stop 05/20/18 at 15:48; Status DC Haloperidol (Haldol) 10 mg QHS IM Last administered on 05/17/18 21:54; Start 05/16/18 at 21:00; Stop 05/18/18 at 09:33; Status DC Haloperidol (Haldol) 10 mg QHS PO Last administered on 05/11/18at 20:11; Start 05/11/18 at 21:00; Stop 05/16/18 at 11:20; Status DC Haloperidol Decanoate (Haldol Decanoate) 100 mg Q28D@0900 IM ; Start 06/17/18 at 09:00 Haloperidol Decanoate (Haldol Decanoate) 100 mg Q28D@1500 IM Last administered on 05/19/18at 15:15; Start 05/19/18 at 15:00; Stop 05/20/18 at 16:40; Status DC Home Med (Med Rec Complete!) ASDIRECTED XX ; Start 04/24/18 at 09:45; Stop 04/24/18 at 09:45; Status DC Ibuprofen (Advil) 400 mg Q8HP PRN PO PAIN OR DISCOMFORT Last administered on 05/24/18at 16:25; Start 04/25/18 at 21:45 Lorazepam (Ativan) 2 mg Q6HP PRN PO ANXIETY/AGITATION Last administered on 05/02/18at 08:50; Start 04/30/18 at 12:45; Stop 05/02/18 at 09:27; Status DC Lurasidone HCl (Latuda) 20 mg BID PO ; Start 04/28/18 at 21:00; Status Cancel Lurasidone HCl (Latuda) 40 mg DAILY@08 PO Last administered on 05/04/18at 08:25; Start 05/02/18 at 08:00; Stop 05/11/18 at 14:10; Status DC Magnesium Hydroxide (Milk Of Magnesia) 30 ml DAILYPRN PRN PO CONSTIPATION Last administered on 05/23/18at 18:22; Start 04/24/18 at 14:00 Menthol/Methyl Salicylate (Bengay Cream) apply to both ankles BIDP PRN TOP PAIN OR DISCOMFORT Last administered on 05/22/18at 23:31; Start 05/10/18 at 17:45 Miscellaneous (Unresolved Clarification Entry) SEE LABEL COMMENTS DAILY XX ; Start 05/08/18 at 09:00; Stop 05/08/18 at 14:17; Status DC Miscellaneous (Unresolved Clarification Entry) SEE LABEL COMMENTS DAILY XX ; Start 05/14/18 at 09:00; Stop 05/14/18 at 15:54; Status DC Miscellaneous (Unresolved Clarification Entry) SEE LABEL COMMENTS DAILY XX ; Start 05/20/18 at 09:00; Stop 05/20/18 at 16:42; Status DC Miscellaneous (Unresolved Clarification Entry) SEE LABEL COMMENTS DAILY XX ; Start 05/23/18 at 09:00; Stop 05/24/18 at 07:14; Status DC Miscellaneous (Unresolved Clarification Entry) SEE LABEL COMMENTS DAILY XX ; Start 05/24/18 at 09:00; Stop 05/24/18 at 11:10; Status DC Nicotine (Nicoderm Cq 21mg) 1 patch DAILY TD Last administered on 05/24/18at 09:36; Start 04/26/18 at 09:00 Non-Formulary Medication ( See Comment Field Below ) SEE COMMENTS SECTION 1T@10 XX ; Start 05/04/18 at 10:00; Stop 05/05/18 at 09:59; Status UNV Olanzapine (ZyPREXA ZYDIS) 10 mg Q6HP PRN PO ANXIETY/AGITATION; Start 04/30/18 at 12:45 Ondansetron HCl (Zofran Odt) 4 mg Q6H PRN PO NAUSEA Last administered on 05/24/18at 03:20; Start 04/24/18 at 18:45 Oxcarbazepine (Trileptal) 150 mg BID PO ; Start 04/26/18 at 21:00; Stop 04/28/18 at 11:20; Status DC Oxcarbazepine (Trileptal) 150 mg QAM PO ; Start 04/25/18 at 09:00; Stop 04/26/18 at 16:04; Status DC Patient Own Medication (Patient'S Own Med) BENEFIBER PACKET: ADMINIS... BID PO Last administered on 05/24/18at 09:34; Start 05/02/18 at 21:00 Psyllium Hydrophilic Mucilloid (Metamucil) 1 pkt BID PO Last administered on 04/25/18at 11:25; Start 04/25/18 at 09:00; Stop 05/03/18 at 08:13; Status DC Quetiapine Fumarate (SEROquel) 50 mg DAILY@1500 PO Last administered on 04/29/18at 15:43; Start 04/28/18 at 15:00; Stop 05/01/18 at 15:59; Status DC Quetiapine Fumarate (SEROquel) 50 mg QAM PO Last administered on 05/03/18at 13:27; Start 04/29/18 at 09:00; Stop 05/03/18 at 21:24; Status DC Quetiapine Fumarate (SEROquel) 100 mg QAM PO ; Start 04/28/18 at 09:00; Stop 04/28/18 at 12:01; Status DC Quetiapine Fumarate (SEROquel) 150 mg DAILY@1500 PO ; Start 04/28/18 at 15:00; Status Cancel Quetiapine Fumarate (SEROquel) 150 mg QHS PO Last administered on 04/27/18at 00:09; Start 04/26/18 at 21:00; Stop 04/27/18 at 19:45; Status DC Quetiapine Fumarate (SEROquel) 200 mg QHS PO Last administered on 04/27/18at 20:29; Start 04/27/18 at 21:00; Stop 04/28/18 at 11:21; Status DC Quetiapine Fumarate (SEROquel) 250 mg QHS PO Last administered on 04/29/18at 21:01; Start 04/28/18 at 21:00; Stop 05/01/18 at 15:59; Status DC Sucralfate (Carafate Suspension) 1 gm ACHS PO Last administered on 05/24/18at 16:32; Start 04/24/18 at 21:00 Trazodone HCl (Desyrel) 50 mg QHSP PRN PO INSOMNIA; Start 04/24/18 at 14:00; Status Cancel Allergies Coded Allergies: Aripiprazole (Unverified Allergy, Unknown, 05/05/18) This reaction was never verified. It is SUSPECT. Carbitol (Unverified Allergy, Unknown, 01/13/13) Fluphenazine (Unverified Allergy, Unknown, 05/05/18) UNVERIFIED REACTION. IT IS SUSPECT [place] (Unverified Allergy, Unknown, 05/05/18) UNVERIFIED REACTION. IT IS SUSPECT. Meperidine (Unverified Allergy, Unknown, 01/13/13) Metoclopramide (Unverified Allergy, Unknown, 01/13/13) Olanzapine (Unverified Allergy, Unknown, 05/05/18) This is an unverified reaction. It is SUSPECT Penicillins (Unverified Allergy, Unknown, 01/13/13) Ranitidine (Unverified Allergy, Unknown, 01/13/13) Risperidone (Unverified Allergy, Unknown, 05/05/18) Unverified reaction. It is SUSPECT. Sertraline (Unverified Allergy, Unknown, 05/05/18) Unverified reaction. It is SUSPECT Valproic Acid (Unverified Allergy, Unknown, 05/05/18) Unverified reaction. It is SUSPECT Acetaminophen (Unverified Adverse Reaction, Intermediate, PT Hx hep C, hep B, 04/24/18) Haloperidol (Verified Adverse Reaction, Intermediate, makes me go crazy, 05/05/18) uNVERIFIED REACTION. IT IS SUSPECT BRENNA FLEMING MD May 24, 2018 19:19
[2018-05-24] MEDS: diphenhydrAMINE 50 MG CAP PO PRN (22:53)
[2018-05-24] MEDS: OLANZapine ORAL DISINTEGRATING TAB 5MG PO PRN (22:55)
[2018-05-24] MEDS: MAALOX 30 ML SUSP *UDC PO PRN (23:21)
[2018-05-25 06:57] VITALS: BP 127/75
[2018-05-25] MEDS: SUCRALFATE SUSP 1GM/10ML UD PO SCH ×4 (08:03→21:36)
[2018-05-25] MEDS: BENEFIBER PO SCH ×2 (08:04→21:37)
[2018-05-25] MEDS: diphenhydrAMINE 25 MG CAP PO SCH ×3 (08:06→22:59)
[2018-05-25] MEDS: clonazePAM 1 MG TAB PO SCH ×4 (08:06→23:00)
[2018-05-25] MEDS: BENZTROPINE 1 MG TAB PO SCH ×2 (08:06→21:36)
[2018-05-25] MEDS: NICOTINE 21MG/24HR 1 EA TRANSDERMAL TD SCH (08:08)
[2018-05-25] MEDS: CEPACOL LOZENGE PO PRN ×2 (08:11→20:25)
[2018-05-25] MEDS: CHLORHEXIDINE GLUCONATE 0.12 % 15ML UDC (PERIDEX ORAL RINSE) SSP SCH ×3 (08:30→17:31)
[2018-05-25] MEDS: BENZOCAINE 10% 9GM TUBE (ANBESOL) MT SCH ×4 (09:00→21:37)
[2018-05-25] MEDS ORDERED: QUEtiapine FUMARATE 25 MG TAB PO SCH (16:00)
--- NOTE | 2018-05-25 17:33 | MHIPNPDOC ---
[facility] Progress Note Progress Note DATE OF SERVICE: 05/25/18 HISTORY: As per Dr. Oliver: " "I have a problem with my boyfriend, I don't want to live with him." The patient was brought by the police as her called the police because for the last two weeks the patient has been manic. She is on prednisone for her hepatitis C. She is reportedly all around the place, cleaning her house. She reports that she feels like she is on speed. It is difficult to follow her as the patient is very tangential, circumstantial, and there is flight of ideas. The patient reports she has been allergic to most of the medications. She also reports she took herself off from Prozac as it was not helping her. She has started taking cannabidiol (CBD) oil which helps her mood as per the patient. Currently denies any suicidal or homicidal ideas." VITAL SIGNS: See below. NEW TEST RESULTS: None. CURRENT MEDICATIONS: See below. MENTAL STATUS EXAMINATION: Patient is a 47-year old female, who is alert and cooperative during the interview, appears older than stated age, dressed in personal clothing Speech: Is less rapid,less pressured, normal volume Language skills are intact Thought processes including: tangential, irrational. Derailed, she has to be re directed several times Thought content: Anxious thoughts about taking medications, about developing side effects from them. Description of abnormal or psychotic thoughts: Delusional Judgment: poor Insight: poor Orientation: oriented to person and place Recent and remote memory: limited Attention span and concentration: poor Language: intact Mood: Anxious(there are ghosts in this room.) Affect: Full, reactive, congruent with mood DIAGNOSES: 1. Bipolar Disorder 2. Cannabis Use Disorder Patient's mental status remains almost the same. She is saying she can't take Abilify because it gives her stomachaches. Medication Nurse and this radio news writer tell her that she has GI problems, like gastritis, because she doesn't eat and that is not related to medications. I tell her once again to take the medications at night but the medication nurse tells me that she (the patient) doesn't tke her medications because I'm not here at night. she takes them only in the morning because I'm here at that time. Patient tells me she is going to take Seroquel as we had said during the administrative meeting, the, she changes and she tells me she wants to take Latuda until finally we agree that she is going to take Abilify 5 mgs PO QAM. She says she will take it but I have my doubts. she has said the same thing over and over again. MANAGEMENT PLAN: Will continue with Abilify 5 mgs PO QAM TIME SPENT: 15 minutes. Vital Signs Vital Signs Date Time Temp Pulse Resp B/P (MAP) Pulse Ox O2 Delivery O2 Flow Rate FiO2 05/25/18 06:57 98.1 79 16 127/75 (92) 05/21/18 18:00 Room Air Current Medications Current Medications Al Hydrox/Mg Hydrox/Simethicone (Mylanta) 30 ml Q4HP PRN PO HEARTBURN/INDIGESTION Last administered on 05/24/18 23:21; Start 04/24/18 at 14:00 Albuterol Sulfate (Proventil, Ventolin Hfa) 2 puff Q4HP PRN INH SHORTNESS OF BREATH Last administered on 05/24/18 09:41; Start 04/24/18 at 18:45 Aripiprazole (AbiLIFY) 2.5 mg BID PO Last administered on 05/24/18 09:35; Start 05/23/18 at 09:00; Stop 05/25/18 at 12:11; Status DC Aripiprazole (AbiLIFY) 5 mg QAM PO ; Start 05/26/18 at 09:00 Aripiprazole (AbiLIFY) 10 mg QHS PO Last administered on 05/09/18at 21:00; Start 05/05/18 at 21:00; Stop 05/11/18 at 14:11; Status DC Benzocaine (Anbesol Gel) TO MOUTH SORES QID MT Last administered on 05/24/18at 20:34; Start 05/08/18 at 13:00 Benztropine Mesylate (Cogentin) 1 mg BID PO Last administered on 05/25/18at 08:06; Start 05/20/18 at 21:00 Benztropine Mesylate (Cogentin) 1 mg QHS IM Last administered on 05/20/18at 01:30; Start 05/16/18 at 21:00; Stop 05/20/18 at 15:48; Status DC Benztropine Mesylate (Cogentin) 1 mg QHS PO Last administered on 05/12/18 21:06; Start 05/11/18 at 21:00; Stop 05/14/18 at 15:54; Status DC Benztropine Mesylate (Cogentin) 1 mg QHS PO Last administered on 05/15/18at 21:00; Start 05/14/18 at 21:00; Stop 05/16/18 at 11:23; Status DC Cetylpyridinium Chloride (Cepacol) 1 karoline Q2HP PRN PO COUGH Last administered on 05/25/18 08:11; Start 05/01/18 at 18:30 Chlorhexidine Gluconate (Peridex Oral Rinse) 15 ml PC SSP Last administered on 05/24/18 18:14; Start 05/09/18 at 08:30 Clonazepam (KlonoPIN) 1 mg BIDP PRN PO ANXIETY/AGITATION Last administered on 04/30/18 11:40; Start 04/24/18 at 18:45; Stop 04/30/18 at 23:38; Status DC Clonazepam (KlonoPIN) 1 mg QID PO Last administered on 05/25/18 12:15; Start 05/02/18 at 13:00 Diphenhydramine HCl (Benadryl) 25 mg TID PO Last administered on 05/25/18 08:0 6; Start 05/05/18 at 16:00 Diphenhydramine HCl (Benadryl) 50 mg Q6HP PRN PO EPS Last administered on 05/24/18 22:53; Start 05/03/18 at 23:30 Fluticasone Propionate (Flonase 0.05% Nasal [place]) 1 spray BIDP PRN NARES post nasal drip Last administered on 05/24/18 22:59; Start 05/08/18 at 14:00 Haloperidol (Haldol) 5 mg QHS IM Last administered on 05/20/18 01:30; Start 05/18/18 at 21:00; Stop 05/20/18 at 15:48; Status DC Haloperidol (Haldol) 10 mg QHS IM Last administered on 05/17/18 21:54; Start 05/16/18 at 21:00; Stop 05/18/18 at 09:33; Status DC Haloperidol (Haldol) 10 mg QHS PO Last administered on 05/11/18at 20:11; Start 05/11/18 at 21:00; Stop 05/16/18 at 11:20; Status DC Haloperidol Decanoate (Haldol Decanoate) 100 mg Q28D@0900 IM ; Start 06/17/18 at 09:00 Haloperidol Decanoate (Haldol Decanoate) 100 mg Q28D@1500 IM Last administered on 05/19/18at 15:15; Start 05/19/18 at 15:00; Stop 05/20/18 at 16:40; Status DC Home Med (Med Rec Complete!) ASDIRECTED XX ; Start 04/24/18 at 09:45; Stop 04/24/18 at 09:45; Status DC Ibuprofen (Advil) 400 mg Q8HP PRN PO PAIN OR DISCOMFORT Last administered on 05/24/18at 16:25; Start 04/25/18 at 21:45 Lorazepam (Ativan) 2 mg Q6HP PRN PO ANXIETY/AGITATION Last administered on 05/02/18at 08:50; Start 04/30/18 at 12:45; Stop 05/02/18 at 09:27; Status DC Lurasidone HCl (Latuda) 20 mg BID PO ; Start 04/28/18 at 21:00; Status Cancel Lurasidone HCl (Latuda) 40 mg DAILY@08 PO Last administered on 05/04/18at 08:25; Start 05/02/18 at 08:00; Stop 05/11/18 at 14:10; Status DC Magnesium Hydroxide (Milk Of Magnesia) 30 ml DAILYPRN PRN PO CONSTIPATION Last administered on 05/23/18at 18:22; Start 04/24/18 at 14:00 Menthol/Methyl Salicylate (Bengay Cream) apply to both ankles BIDP PRN TOP PAIN OR DISCOMFORT Last administered on 05/22/18at 23:31; Start 05/10/18 at 17:45 Miscellaneous (Unresolved Clarification Entry) SEE LABEL COMMENTS DAILY XX ; Start 05/08/18 at 09:00; Stop 05/08/18 at 14:17; Status DC Miscellaneous (Unresolved Clarification Entry) SEE LABEL COMMENTS DAILY XX ; Start 05/14/18 at 09:00; Stop 05/14/18 at 15:54; Status DC Miscellaneous (Unresolved Clarification Entry) SEE LABEL COMMENTS DAILY XX ; Start 05/20/18 at 09:00; Stop 05/20/18 at 16:42; Status DC Miscellaneous (Unresolved Clarification Entry) SEE LABEL COMMENTS DAILY XX ; Start 05/23/18 at 09:00; Stop 05/24/18 at 07:14; Status DC Miscellaneous (Unresolved Clarification Entry) SEE LABEL COMMENTS DAILY XX ; Start 05/24/18 at 09:00; Stop 05/24/18 at 11:10; Status DC Miscellaneous (Unresolved Clarification Entry) SEE LABEL COMMENTS DAILY XX ; Start 05/25/18 at 09:00; Stop 05/25/18 at 12:15; Status DC Nicotine (Nicoderm Cq 21mg) 1 patch DAILY TD Last administered on 05/25/18at 08:08; Start 04/26/18 at 09:00 Non-Formulary Medication ( See Comment Field Below ) SEE COMMENTS SECTION 1T@10 XX ; Start 05/04/18 at 10:00; Stop 05/05/18 at 09:59; Status UNV Olanzapine (ZyPREXA ZYDIS) 10 mg Q6HP PRN PO ANXIETY/AGITATION Last administered on 05/24/18at 22:55; Start 04/30/18 at 12:45 Ondansetron HCl (Zofran Odt) 4 mg Q6H PRN PO NAUSEA Last administered on 05/24/18at 22:53; Start 04/24/18 at 18:45 Oxcarbazepine (Trileptal) 150 mg BID PO ; Start 04/26/18 at 21:00; Stop 04/28/18 at 11:20; Status DC Oxcarbazepine (Trileptal) 150 mg QAM PO ; Start 04/25/18 at 09:00; Stop 04/26/18 at 16:04; Status DC Patient Own Medication (Patient'S Own Med) BENEFIBER PACKET: ADMINIS... BID PO Last administered on 05/25/18at 08:04; Start 05/02/18 at 21:00 Psyllium Hydrophilic Mucilloid (Metamucil) 1 pkt BID PO Last administered on 04/25/18at 11:25; Start 04/25/18 at 09:00; Stop 05/03/18 at 08:13; Status DC Quetiapine Fumarate (SEROquel) 25 mg TID PO ; Start 05/25/18 at 16:00; Status Cancel Quetiapine Fumarate (SEROquel) 50 mg DAILY@1500 PO Last administered on 04/29/18at 15:43; Start 04/28/18 at 15:00; Stop 05/01/18 at 15:59; Status DC Quetiapine Fumarate (SEROquel) 50 mg QAM PO Last administered on 05/03/18at 13:27; Start 04/29/18 at 09:00; Stop 05/03/18 at 21:24; Status DC Quetiapine Fumarate (SEROquel) 100 mg QAM PO ; Start 04/28/18 at 09:00; Stop 04/28/18 at 12:01; Status DC Quetiapine Fumarate (SEROquel) 150 mg DAILY@1500 PO ; Start 04/28/18 at 15:00; Status Cancel Quetiapine Fumarate (SEROquel) 150 mg QHS PO Last administered on 04/27/18at 00:09; Start 04/26/18 at 21:00; Stop 04/27/18 at 19:45; Status DC Quetiapine Fumarate (SEROquel) 200 mg QHS PO Last administered on 04/27/18at 20:29; Start 04/27/18 at 21:00; Stop 04/28/18 at 11:21; Status DC Quetiapine Fumarate (SEROquel) 250 mg QHS PO Last administered on 04/29/18at 21:01; Start 04/28/18 at 21:00; Stop 05/01/18 at 15:59; Status DC Sucralfate (Carafate Suspension) 1 gm ACHS PO Last administered on 05/25/18at 11:49; Start 04/24/18 at 21:00 Trazodone HCl (Desyrel) 50 mg QHSP PRN PO INSOMNIA; Start 04/24/18 at 14:00; Status Cancel Allergies Coded Allergies: Aripiprazole (Unverified Allergy, Unknown, 05/05/18) This reaction was never verified. It is SUSPECT. Carbitol (Unverified Allergy, Unknown, 01/13/13) Fluphenazine (Unverified Allergy, Unknown, 05/05/18) UNVERIFIED REACTION. IT IS SUSPECT [place] (Unverified Allergy, Unknown, 05/05/18) UNVERIFIED REACTION. IT IS SUSPECT. Meperidine (Unverified Allergy, Unknown, 01/13/13) Metoclopramide (Unverified Allergy, Unknown, 01/13/13) Olanzapine (Unverified Allergy, Unknown, 05/05/18) This is an unverified reaction. It is SUSPECT Penicillins (Unverified Allergy, Unknown, 01/13/13) Ranitidine (Unverified Allergy, Unknown, 01/13/13) Risperidone (Unverified Allergy, Unknown, 05/05/18) Unverified reaction. It is SUSPECT. Sertraline (Unverified Allergy, Unknown, 05/05/18) Unverified reaction. It is SUSPECT Valproic Acid (Unverified Allergy, Unknown, 05/05/18) Unverified reaction. It is SUSPECT Acetaminophen (Unverified Adverse Reaction, Intermediate, PT Hx hep C, hep B, 04/24/18) Haloperidol (Verified Adverse Reaction, Intermediate, makes me go crazy, 05/05/18) uNVERIFIED REACTION. IT IS SUSPECT BRENNA FLEMING MD May 25, 2018 17:33
[2018-05-25 18:00] VITALS: BP 119/69
[2018-05-25] MEDS: ONDANSETRON 4 MG ORAL DISINTEGRATING TAB (Q0162 PER 1MG) PO PRN (22:59)
[2018-05-25] MEDS: diphenhydrAMINE 50 MG CAP PO PRN (22:59)
[2018-05-25] MEDS: OLANZapine ORAL DISINTEGRATING TAB 5MG PO PRN (23:01)
--- NOTE | 2018-05-26 00:44 | ECGEPIP ---
Stationary ECG Study [facility] Test Date: 2018-05-25 Pat Name: ELLY LERMA Department: Room: [place] [address] Gender: F Website Programmer: EDGARD : 1970 Requested By: BRENNA Browning Order Number: [id number] Reading MD: Gerard Florez Measurements Intervals [place] Rate: 82 P: 78 UT: 149 QRS: 81 QRSD: 88 T: 59 QT: 376 QTc: 440 Interpretive Statements SINUS RHYTHM POSSIBLE LEFT ATRIAL ENLARGEMENT COMPARED TO THE LAST 2 TRACINGS IN THE SYSTEM, NO SIGNIFICANT CHANGES Electronically Signed On 05-26-2018 0:43:59 EST by Gerard Florez
[2018-05-26] MEDS: SUCRALFATE SUSP 1GM/10ML UD PO SCH ×4 (06:39→22:41)
[2018-05-26] MEDS: CHLORHEXIDINE GLUCONATE 0.12 % 15ML UDC (PERIDEX ORAL RINSE) SSP SCH ×3 (08:30→17:37)
[2018-05-26] MEDS: BENZOCAINE 10% 9GM TUBE (ANBESOL) MT SCH ×4 (09:00→21:00)
[2018-05-26] MEDS: clonazePAM 1 MG TAB PO SCH ×3 (09:00→22:41)
[2018-05-26] MEDS: BENEFIBER PO SCH ×2 (09:00→21:00)
[2018-05-26] MEDS: BENZTROPINE 1 MG TAB PO SCH ×2 (11:19→22:41)
[2018-05-26] MEDS: diphenhydrAMINE 25 MG CAP PO SCH ×3 (11:20→22:41)
[2018-05-26] MEDS: NICOTINE 21MG/24HR 1 EA TRANSDERMAL TD SCH (11:22)
[2018-05-26] MEDS: ALBUTEROL 90 MCG/ACT 8GM HFA INHALER INH PRN ×2 (11:48→22:42)
[2018-05-26] MEDS: FLUTICASONE PROP 0.05% NASAL SPRAY 16 GM (FLONASE) NARES PRN ×2 (11:49→22:41)
[2018-05-26] MEDS: CEPACOL LOZENGE PO PRN (11:55)
[2018-05-26] MEDS: ONDANSETRON 4 MG ORAL DISINTEGRATING TAB (Q0162 PER 1MG) PO PRN (11:55)
[2018-05-26] MEDS: IBUPROFEN 400 MG TAB PO PRN (17:42)
[2018-05-26 18:00] VITALS: BP_SYST 130; BP_SYST 133; BP_DIAS 71; BP_DIAS 81
--- NOTE | 2018-05-26 19:09 | MHIPNPDOC ---
[facility] Progress Note Progress Note DATE OF SERVICE: 05/26/18 HISTORY: As per Dr. Oliver: " "I have a problem with my boyfriend, I don't want to live with him." The patient was brought by the police as her called the police because for the last two weeks the patient has been manic. She is on prednisone for her hepatitis C. She is reportedly all around the place, cleaning her house. She reports that she feels like she is on speed. It is difficult to follow her as the patient is very tangential, circumstantial, and there is flight of ideas. The patient reports she has been allergic to most of the medications. She also reports she took herself off from Prozac as it was not helping her. She has started taking cannabidiol (CBD) oil which helps her mood as per the patient. Currently denies any suicidal or homicidal ideas." VITAL SIGNS: See below. NEW TEST RESULTS: None. CURRENT MEDICATIONS: See below. MENTAL STATUS EXAMINATION: Patient is a 47-year old female, who is alert and cooperative during the interview, appears older than stated age, dressed in personal clothing Speech: Still a little rapid and pressured, but a little less. She is tangential, although continues to be circumstantial Language skills are intact Thought processes including: less circumstantial and less tangential, although she still needs re direction Thought content: Anxious thoughts about a Zyprexa Zydis tablet she took last night, she fears having allergic reactions to all medications Description of abnormal or psychotic thoughts: She is still delusional, although she is showing some improvement Judgment: poor Insight: poor Orientation: oriented to person and place Recent and remote memory: limited Attention span and concentration: poor Language: intact Mood: Anxious (medications make her sick, provoke allergic reactions) Affect: Full, reactive, congruent with mood DIAGNOSES: 1. Bipolar Disorder 2. Cannabis Use Disorder ASSESSMENT: Patient was complaining about taking Zyprexa Zydis and she thought she had developed an allergic reaction because she had a headache but this race and sports book writer explained this was not the result of an allergic reaction, besides she was experiencing the headache 16 hours after taking the medication, that was ordered by another psychiatrist on 04/30/18 for anxiety/agitation as a PRN medication. Patient is extremely afraid of developing side effects to medications, she constantly complaints of stomachaches and nausea, she has been seen scratching herself prior to reporting an allergic reaction to a medication. Nursing staff and myself have told her several times that she develops stomachaches because she doesn't like to eat breakfasts, she only takes tea or juices, which has contributed to her gastric problems, most likely gastritis. Bridget is slowly improving although she still makes excuses for taking medications, she is still psychotic, today she thought someone had stolen something from her, she might still be responding to internal stimuli. She is almost always anxous but I decreased the amount of Klonopin she takes today from 1 mg. PO QID to 1 mg PO TID MANAGEMENT PLAN: Will continue with Abilify 5 mgs PO QAM, will decrease Klonopin from 1 mg po qid to 1 mg po tid TIME SPENT: 20 minutes. Vital Signs Vital Signs Date Time Temp Pulse Resp B/P (MAP) Pulse Ox O2 Delivery O2 Flow Rate FiO2 05/25/18 18:00 98.9 95 20 119/69 (86) 05/21/18 18:00 Room Air Current Medications Current Medications Al Hydrox/Mg Hydrox/Simethicone (Mylanta) 30 ml Q4HP PRN PO HEARTBURN/IN DIGESTION Last administered on 05/24/18 23:21; Start 04/24/18 at 14:00 Albuterol Sulfate (Proventil, Ventolin Hfa) 2 puff Q4HP PRN INH SHORTNESS OF BREATH Last administered on 05/26/18 11:48; Start 04/24/18 at 18:45 Aripiprazole (AbiLIFY) 2.5 mg BID PO Last administered on 05/24/18at 09:35; Start 05/23/18 at 09:00; Stop 05/25/18 at 12:11; Status DC Aripiprazole (AbiLIFY) 5 mg QAM PO Last administered on 05/26/18 11:19; Start 05/26/18 at 09:00 Aripiprazole (AbiLIFY) 10 mg QHS PO Last administered on 05/09/18 21:00; Start 05/05/18 at 21:00; Stop 05/11/18 at 14:11; Status DC Benzocaine (Anbesol Gel) TO MOUTH SORES QID MT Last administered on 05/25/18 21:37; Start 05/08/18 at 13:00 Benztropine Mesylate (Cogentin) 1 mg BID PO Last administered on 05/26/18 11:19; Start 05/20/18 at 21:00 Benztropine Mesylate (Cogentin) 1 mg QHS IM Last administered on 05/20/18 01:30; Start 05/16/18 at 21:00; Stop 05/20/18 at 15:48; Status DC Benztropine Mesylate (Cogentin) 1 mg QHS PO Last administered on 05/12/18 21 :06; Start 05/11/18 at 21:00; Stop 05/14/18 at 15:54; Status DC Benztropine Mesylate (Cogentin) 1 mg QHS PO Last administered on 05/15/18at 21:00; Start 05/14/18 at 21:00; Stop 05/16/18 at 11:23; Status DC Cetylpyridinium Chloride (Cepacol) 1 karoline Q2HP PRN PO COUGH Last administered on 05/26/18 11:55; Start 05/01/18 at 18:30 Chlorhexidine Gluconate (Peridex Oral Rinse) 15 ml PC SSP Last administered on 05/26/18 17:37; Start 05/09/18 at 08:30 Clonazepam (KlonoPIN) 1 mg BIDP PRN PO ANXIETY/AGITATION Last administered on 04/30/18 11:40; Start 04/24/18 at 18:45; Stop 04/30/18 at 23:38; Status DC Clonazepam (KlonoPIN) 1 mg QID PO Last administered on 05/26/18 12:00; Start 05/02/18 at 13:00; Stop 05/26/18 at 16:24; Status DC Clonazepam (KlonoPIN) 1 mg TID PO ; Start 05/26/18 at 21:00 Diphenhydramine HCl (Benadryl) 25 mg TID PO Last administered on 05/26/18 17:35; Start 05/05/18 at 16:00 Diphenhydramine HCl (Benadryl) 50 mg Q6HP PRN PO EPS Last administered on 05/25/18at 22:59; Start 05/03/18 at 23:30 Fluticasone Propionate (Flonase 0.05% Nasal [place]) 1 spray BIDP PRN NARES post nasal drip Last administered on 05/26/18at 11:49; Start 05/08/18 at 14:00 Haloperidol (Haldol) 5 mg QHS IM Last administered on 05/20/18at 01:30; Start 05/18/18 at 21:00; Stop 05/20/18 at 15:48; Status DC Haloperidol (Haldol) 10 mg QHS IM Last administered on 05/17/18at 21:54; Start 05/16/18 at 21:00; Stop 05/18/18 at 09:33; Status DC Haloperidol (Haldol) 10 mg QHS PO Last administered on 05/11/18at 20:11; Start 05/11/18 at 21:00; Stop 05/16/18 at 11:20; Status DC Haloperidol Decanoate (Haldol Decanoate) 100 mg Q28D@0900 IM ; Start 06/17/18 at 09:00 Haloperidol Decanoate (Haldol Decanoate) 100 mg Q28D@1500 IM Last administered on 05/19/18at 15:15; Start 05/19/18 at 15:00; Stop 05/20/18 at 16:40; Status DC Home Med (Med Rec Complete!) ASDIRECTED XX ; Start 04/24/18 at 09:45; Stop 04/24/18 at 09:45; Status DC Ibuprofen (Advil) 400 mg Q6HP PRN PO PAIN Last administered on 05/26/18at 17:42; Start 05/26/18 at 16:45 Ibuprofen (Advil) 400 mg Q8HP PRN PO PAIN OR DISCOMFORT Last administered on 05/24/18at 16:25; Start 04/25/18 at 21:45; Stop 05/26/18 at 17:41; Status DC Lorazepam (Ativan) 2 mg Q6HP PRN PO ANXIETY/AGITATION Last administered on 05/02/18at 08:50; Start 04/30/18 at 12:45; Stop 05/02/18 at 09:27; Status DC Lurasidone HCl (Latuda) 20 mg BID PO ; Start 04/28/18 at 21:00; Status Cancel Lurasidone HCl (Latuda) 40 mg DAILY@08 PO Last administered on 05/04/18at 08:25; Start 05/02/18 at 08:00; Stop 05/11/18 at 14:10; Status DC Magnesium Hydroxide (Milk Of Magnesia) 30 ml DAILYPRN PRN PO CONSTIPATION Last administered on 05/23/18at 18:22; Start 04/24/18 at 14:00 Menthol/Methyl Salicylate (Bengay Cream) apply to both ankles BIDP PRN TOP PAIN OR DISCOMFORT Last administered on 05/22/18at 23:31; Start 05/10/18 at 17:45 Miscellaneous (Unresolved Clarification Entry) SEE LABEL COMMENTS DAILY XX ; Start 05/08/18 at 09:00; Stop 05/08/18 at 14:17; Status DC Miscellaneous (Unresolved Clarification Entry) SEE LABEL COMMENTS DAILY XX ; Start 05/14/18 at 09:00; Stop 05/14/18 at 15:54; Status DC Miscellaneous (Unresolved Clarification Entry) SEE LABEL COMMENTS DAILY XX ; Start 05/20/18 at 09:00; Stop 05/20/18 at 16:42; Status DC Miscellaneous (Unresolved Clarification Entry) SEE LABEL COMMENTS DAILY XX ; St art 05/23/18 at 09:00; Stop 05/24/18 at 07:14; Status DC Miscellaneous (Unresolved Clarification Entry) SEE LABEL COMMENTS DAILY XX ; Start 05/24/18 at 09:00; Stop 05/24/18 at 11:10; Status DC Miscellaneous (Unresolved Clarification Entry) SEE LABEL COMMENTS DAILY XX ; Start 05/25/18 at 09:00; Stop 05/25/18 at 12:15; Status DC Miscellaneous (Unresolved Clarification Entry) SEE LABEL COMMENTS DAILY XX ; Start 05/26/18 at 09:00; Stop 05/26/18 at 17:23; Status DC Nicotine (Nicoderm Cq 21mg) 1 patch DAILY TD Last administered on 05/26/18at 11:22; Start 04/26/18 at 09:00 Non-Formulary Medication ( See Comment Field Below ) SEE COMMENTS SECTION 1T@10 XX ; Start 05/04/18 at 10:00; Stop 05/05/18 at 09:59; Status UNV Olanzapine (ZyPREXA ZYDIS) 10 mg Q6HP PRN PO ANXIETY/AGITATION Last administered on 05/25/18at 23:01; Start 04/30/18 at 12:45; Stop 05/26/18 at 16:23; Status DC Ondansetron HCl (Zofran Odt) 4 mg Q6H PRN PO NAUSEA Last administered on 05/26/18at 11:55; Start 04/24/18 at 18:45 Oxcarbazepine (Trileptal) 150 mg BID PO ; Start 04/26/18 at 21:00; Stop 04/28/18 at 11:20; Status DC Oxcarbazepine (Trileptal) 150 mg QAM PO ; Start 04/25/18 at 09:00; Stop 04/26/18 at 16:04; Status DC Patient Own Medication (Patient'S Own Med) BENEFIBER PACKET: ADMINIS... BID PO Last administered on 05/25/18at 21:37; Start 05/02/18 at 21:00 Psyllium Hydrophilic Mucilloid (Metamucil) 1 pkt BID PO Last administered on 04/25/18at 11:25; Start 04/25/18 at 09:00; Stop 05/03/18 at 08:13; Status DC Quetiapine Fumarate (SEROquel) 25 mg TID PO ; Start 05/25/18 at 16:00; Status Cancel Quetiapine Fumarate (SEROquel) 50 mg DAILY@1500 PO Last administered on 04/29/18at 15:43; Start 04/28/18 at 15:00; Stop 05/01/18 at 15:59; Status DC Quetiapine Fumarate (SEROquel) 50 mg QAM PO Last administered on 05/03/18at 13:27; Start 04/29/18 at 09:00; Stop 05/03/18 at 21:24; Status DC Quetiapine Fumarate (SEROquel) 100 mg QAM PO ; Start 04/28/18 at 09:00; Stop 04/28/18 at 12:01; Status DC Quetiapine Fumarate (SEROquel) 150 mg DAILY@1500 PO ; Start 04/28/18 at 15:00; Status Cancel Quetiapine Fumarate (SEROquel) 150 mg QHS PO Last administered on 04/27/18at 00:09; Start 04/26/18 at 21:00; Stop 04/27/18 at 19:45; Status DC Quetiapine Fumarate (SEROquel) 200 mg QHS PO Last administered on 04/27/18at 20:29; Start 04/27/18 at 21:00; Stop 04/28/18 at 11:21; Status DC Quetiapine Fumarate (SEROquel) 250 mg QHS PO Last administered on 04/29/18at 21:01; Start 04/28/18 at 21:00; Stop 05/01/18 at 15:59; Status DC Sucralfate (Carafate Suspension) 1 gm ACHS PO Last administered on 05/26/18at 17:36; Start 04/24/18 at 21:00 Trazodone HCl (Desyrel) 50 mg QHSP PRN PO INSOMNIA; Start 04/24/18 at 14:00; Status Cancel Allergies Coded Allergies: Aripiprazole (Unverified Allergy, Unknown, 05/05/18) This reaction was never verified. It is SUSPECT. Carbitol (Unverified Allergy, Unknown, 01/13/13) Fluphenazine (Unverified Allergy, Unknown, 05/05/18) UNVERIFIED REACTION. IT IS SUSPECT [place] (Unverified Allergy, Unknown, 05/05/18) UNVERIFIED REACTION. IT IS SUSPECT. Meperidine (Unverified Allergy, Unknown, 01/13/13) Metoclopramide (Unverified Allergy, Unknown, 01/13/13) Olanzapine (Unverified Allergy, Unknown, 05/05/18) This is an unverified reaction. It is SUSPECT Penicillins (Unverified Allergy, Unknown, 01/13/13) Ranitidine (Unverified Allergy, Unknown, 01/13/13) Risperidone (Unverified Allergy, Unknown, 05/05/18) Unverified reaction. It is SUSPECT. Sertraline (Unverified Allergy, Unknown, 05/05/18) Unverified reaction. It is SUSPECT Valproic Acid (Unverified Allergy, Unknown, 05/05/18) Unverified reaction. It is SUSPECT Acetaminophen (Unverified Adverse Reaction, Intermediate, PT Hx hep C, hep B, 04/24/18) Haloperidol (Verified Adverse Reaction, Intermediate, makes me go crazy, 05/05/18) uNVERIFIED REACTION. IT IS SUSPECT BRENNA FLEMING MD May 26, 2018 19:09
[2018-05-26] MEDS: ANALGESIC BALM CRM 120 GM TOP PRN (22:43)
[2018-05-27] MEDS: ONDANSETRON 4 MG ORAL DISINTEGRATING TAB (Q0162 PER 1MG) PO PRN ×2 (03:47→08:23)
[2018-05-27] MEDS: IBUPROFEN 400 MG TAB PO PRN ×2 (03:48→11:47)
[2018-05-27] MEDS: CEPACOL LOZENGE PO PRN (03:49)
[2018-05-27 06:33] VITALS: BP 127/70
[2018-05-27] MEDS: SUCRALFATE SUSP 1GM/10ML UD PO SCH ×4 (07:09→21:01)
[2018-05-27] MEDS: ALBUTEROL 90 MCG/ACT 8GM HFA INHALER INH PRN (07:24)
[2018-05-27] MEDS: FLUTICASONE PROP 0.05% NASAL SPRAY 16 GM (FLONASE) NARES PRN ×2 (07:24→21:01)
[2018-05-27] MEDS: BENZOCAINE 10% 9GM TUBE (ANBESOL) MT SCH ×4 (08:23→21:01)
[2018-05-27] MEDS: CHLORHEXIDINE GLUCONATE 0.12 % 15ML UDC (PERIDEX ORAL RINSE) SSP SCH ×3 (08:23→18:55)
[2018-05-27] MEDS: BENEFIBER PO SCH ×2 (08:24→21:00)
[2018-05-27] MEDS: NICOTINE 21MG/24HR 1 EA TRANSDERMAL TD SCH (08:24)
[2018-05-27] MEDS: clonazePAM 1 MG TAB PO SCH ×3 (08:24→21:02)
[2018-05-27] MEDS: diphenhydrAMINE 25 MG CAP PO SCH ×3 (08:24→21:02)
[2018-05-27] MEDS: BENZTROPINE 1 MG TAB PO SCH ×2 (08:24→21:02)
[2018-05-27 18:00] VITALS: BP 126/77
[2018-05-28] MEDS: CEPACOL LOZENGE PO PRN ×5 (02:21→17:50)
[2018-05-28] MEDS: IBUPROFEN 400 MG TAB PO PRN ×2 (02:24→17:51)
[2018-05-28] MEDS: ONDANSETRON 4 MG ORAL DISINTEGRATING TAB (Q0162 PER 1MG) PO PRN ×2 (02:25→17:51)
[2018-05-28 06:26] VITALS: BP 128/73
[2018-05-28] MEDS: MAALOX 30 ML SUSP *UDC PO PRN (06:35)
[2018-05-28] MEDS: SUCRALFATE SUSP 1GM/10ML UD PO SCH ×4 (06:35→21:55)
[2018-05-28] MEDS: BENEFIBER PO SCH ×2 (08:32→21:00)
[2018-05-28] MEDS: BENZOCAINE 10% 9GM TUBE (ANBESOL) MT SCH ×4 (08:32→21:00)
[2018-05-28] MEDS: BENZTROPINE 1 MG TAB PO SCH ×2 (08:32→21:55)
[2018-05-28] MEDS: clonazePAM 1 MG TAB PO SCH ×3 (08:32→21:55)
[2018-05-28] MEDS: diphenhydrAMINE 25 MG CAP PO SCH ×3 (08:32→21:55)
[2018-05-28] MEDS: CHLORHEXIDINE GLUCONATE 0.12 % 15ML UDC (PERIDEX ORAL RINSE) SSP SCH ×3 (08:32→17:33)
[2018-05-28] MEDS: NICOTINE 21MG/24HR 1 EA TRANSDERMAL TD SCH (08:34)
[2018-05-28] MEDS: ANALGESIC BALM CRM 120 GM TOP PRN ×2 (08:35→23:13)
[2018-05-28] MEDS: ALBUTEROL 90 MCG/ACT 8GM HFA INHALER INH PRN ×3 (08:38→17:51)
[2018-05-28] MEDS: FLUTICASONE PROP 0.05% NASAL SPRAY 16 GM (FLONASE) NARES PRN (08:39)
[2018-05-28 18:00] VITALS: BP 147/78
[2018-05-28] MEDS: MOM 30ML SUSPENSION UDC PO PRN (23:31)
[2018-05-29] MEDS: diphenhydrAMINE 50 MG CAP PO PRN ×2 (01:09→23:58)
[2018-05-29] MEDS: SUCRALFATE SUSP 1GM/10ML UD PO SCH ×4 (06:23→21:00)
[2018-05-29] MEDS: CEPACOL LOZENGE PO PRN ×3 (06:26→15:03)
[2018-05-29 06:46] VITALS: BP 140/82
[2018-05-29] MEDS: BENEFIBER PO SCH ×2 (08:20→21:00)
[2018-05-29] MEDS: ANALGESIC BALM CRM 120 GM TOP PRN (08:20)
[2018-05-29] MEDS: diphenhydrAMINE 25 MG CAP PO SCH ×3 (08:20→23:58)
[2018-05-29] MEDS: BENZOCAINE 10% 9GM TUBE (ANBESOL) MT SCH ×4 (08:20→21:00)
[2018-05-29] MEDS: BENZTROPINE 1 MG TAB PO SCH ×2 (08:20→21:00)
[2018-05-29] MEDS: clonazePAM 1 MG TAB PO SCH ×3 (08:20→23:58)
[2018-05-29] MEDS: CHLORHEXIDINE GLUCONATE 0.12 % 15ML UDC (PERIDEX ORAL RINSE) SSP SCH ×3 (08:21→17:30)
[2018-05-29] MEDS: NICOTINE 21MG/24HR 1 EA TRANSDERMAL TD SCH (08:21)
--- NOTE | 2018-05-29 10:54 | MHIPNPDOC ---
[facility] Progress Note Progress Note DATE OF SERVICE: 05/29/18 HISTORY: As per Dr. Oliver: " "I have a problem with my boyfriend, I don't want to live with him." The patient was brought by the police as her called the police because for the last two weeks the patient has been manic. She is on prednisone for her hepatitis C. She is reportedly all around the place, cleaning her house. She reports that she feels like she is on speed. It is difficult to follow her as the patient is very tangential, circumstantial, and there is flight of ideas. The patient reports she has been allergic to most of the medications. She also reports she took herself off from Prozac as it was not helping her. She has started taking cannabidiol (CBD) oil which helps her mood as per the patient. Currently denies any suicidal or homicidal ideas." VITAL SIGNS: See below. NEW TEST RESULTS: None. CURRENT MEDICATIONS: See below. MENTAL STATUS EXAMINATION: Patient is a 47-year old female, who is alert and cooperative during the interview, appears older than stated age, dressed in personal clothing Speech:Not rapid, but a little pressured and slurred. Normal tone and volume. spontaneous and fluent Language skills are intact Thought processes including: She was not circumstantial and not tangential, she has very mild thought blocking, just for a couple of seconds Thought content: Anxious thoughts about her medications. she didn't complain of them giving her a stomachache or nausea but blurry vision Description of abnormal or psychotic thoughts: She is still delusional, but less paranoid, her delusions have decreased Judgment: poor Insight: poor Orientation: oriented to person and place Recent and remote memory: limited Attention span and concentration: poor Language: intact Mood: Anxious (medications make her sick, ) Affect: Full, reactive, congruent with mood DIAGNOSES: 1. Bipolar Disorder 2. Cannabis Use Disorder ASSESSMENT: Patient now thinks that medications give her blurry vision and I explain this ight be secondary to glucose problems or blood pressure problems. then she explains she gets blurry vision only when she tries to read something and I explain that is an eye problem that we all get when we become four[age] or forty something. I recommend her going to an eye doctor when she gets discharged from here. Increased Abilify to 10 mgs. po daily, she was in agreement. She is less delusional but she believes her headband will protect her thoughts. She is more rational, she is not tangential and not circumstantial today. Her thoughts are a little bit more clear, more organized, more rational. she is not suicidal, not homicidal but she is still psychotic MANAGEMENT PLAN: Will continue with Abilify 10 mgs PO QAM, will decrease Klonopin from 1 mg po qid to 1 mg po tid TIME SPENT: 20 minutes. Vital Signs Vital Signs Date Time Temp Pulse Resp B/P (MAP) Pulse Ox O2 Delivery O2 Flow Rate FiO2 05/29/18 06:46 97.2 82 14 140/82 (101) 05/28/18 18:00 94 05/28/18 08:49 Room Air Current Medications Current Medications Al Hydrox/Mg Hydrox/Simethicone (Mylanta) 30 ml Q4HP PRN PO HEARTBURN/INDIGESTION Last administered on 05/28/18 06:35; Start 04/24/18 at 14:00 Albuterol Sulfate (Proventil, Ventolin Hfa) 2 puff Q4HP PRN INH SHORTNESS OF BREATH Last administered on 05/28/18 17:51; Start 04/24/18 at 18:45 Aripiprazole (AbiLIFY) 2.5 mg BID PO Last administered on 05/24/18at 09:35; Start 05/23/18 at 09:00; Stop 05/25/18 at 12:11; Status DC Aripiprazole (AbiLIFY) 5 mg QAM PO Last administered on 05/29/18at 08:20; Start 05/26/18 at 09:00; Stop 05/29/18 at 10:36; Status DC Aripiprazole (AbiLIFY) 7.5 mg QAM PO ; Start 05/30/18 at 09:00; Stop 05/30/18 at 09:00; Status DC Aripiprazole (AbiLIFY) 10 mg QAM PO ; Start 05/30/18 at 09:00 Aripiprazole (AbiLIFY) 10 mg QHS PO Last administered on 05/09/18at 21:00; Start 05/05/18 at 21:00; Stop 05/11/18 at 14:11; Status DC Benzocaine (Anbesol Gel) TO MOUTH SORES QID MT Last administered on 05/29/18 08:20; Start 05/08/18 at 13:00 Benztropine Mesylate (Cogentin) 1 mg BID PO Last administered on 05/29/18 08:20; Start 05/20/18 at 21:00 Benztropine Mesylate (Cogentin) 1 mg QHS IM Last administered on 05/20/18 01:30; Start 05/16/18 at 21:00; Stop 05/20/18 at 15:48; Status DC Benztropine Mesylate (Cogentin) 1 mg QHS PO Last administered on 05/12/18 21:06; Start 05/11/18 at 21:00; Stop 05/14/18 at 15:54; Status DC Benztropine Mesylate (Cogentin) 1 mg QHS PO Last administered on 05/15/18 21:00; Start 05/14/18 at 21:00; Stop 05/16/18 at 11:23; Status DC Cetylpyridinium Chloride (Cepacol) 1 karoline Q2HP PRN PO COUGH Last administered on 05/29/18 08:21; Start 05/01/18 at 18:30 Chlorhexidine Gluconate (Peridex Oral Rinse) 15 ml PC SSP Last administered on 05/29/18 08:21; Start 05/09/18 at 08:30 Clonazepam (KlonoPIN) 1 mg BIDP PRN PO ANXIETY/AGITATION Last administered on 04/30/18 11:40; Start 04/24/18 at 18:45; Stop 04/30/18 at 23:38; Status DC Clonazepam (KlonoPIN) 1 mg QID PO Last administered on 05/26/18 12:00; Start 05/02/18 at 13:00; Stop 05/26/18 at 16:24; Status DC Clonazepam (KlonoPIN) 1 mg TID PO Last administered on 05/29/18 08:20; Start 05/26/18 at 21:00 Diphenhydramine HCl (Benadryl) 25 mg TID PO Last administered on 05/29/18 08:20; Start 05/05/18 at 16:00 Diphenhydramine HCl (Benadryl) 50 mg Q6HP PRN PO EPS Last administered on 05/29/18 01:09; Start 05/03/18 at 23:30 Fluticasone Propionate (Flonase 0.05% Nasal [place]) 1 spray BIDP PRN NARES post nasal drip Last administered on 05/28/18 08:39; Start 05/08/18 at 14:00 Haloperidol (Haldol) 5 mg QHS IM Last administered on 05/20/18at 01:30; Start 05/18/18 at 21:00; Stop 05/20/18 at 15:48; Status DC Haloperidol (Haldol) 10 mg QHS IM Last administered on 05/17/18at 21:54; Start 05/16/18 at 21:00; Stop 05/18/18 at 09:33; Status DC Haloperidol (Haldol) 10 mg QHS PO Last administered on 05/11/18at 20:11; Start 05/11/18 at 21:00; Stop 05/16/18 at 11:20; Status DC Haloperidol Decanoate (Haldol Decanoate) 100 mg Q28D@0900 IM ; Start 06/17/18 at 09:00 Haloperidol Decanoate (Haldol Decanoate) 100 mg Q28D@1500 IM Last administered on 05/19/18at 15:15; Start 05/19/18 at 15:00; Stop 05/20/18 at 16:40; Status DC Home Med (Med Rec Complete!) ASDIRECTED XX ; Start 04/24/18 at 09:45; Stop 04/24/18 at 09:45; Status DC Ibuprofen (Advil) 400 mg Q6HP PRN PO PAIN Last administered on 05/28/18 17:51; Start 05/26/18 at 16:45 Ibuprofen (Advil) 400 mg Q8HP PRN PO PAIN OR DISCOMFORT Last administered on 16:25; Start 04/25/18 at 21:45; Stop 05/26/18 at 17:41; Status DC Lorazepam (Ativan) 2 mg Q6HP PRN PO ANXIETY/AGITATION Last administered on 05/02/18 08:50; Start 04/30/18 at 12:45; Stop 05/02/18 at 09:27; Status DC Lurasidone HCl (Latuda) 20 mg BID PO ; Start 04/28/18 at 21:00; Status Cancel Lurasidone HCl (Latuda) 40 mg DAILY@08 PO Last administered on 05/04/18at 08:25; Start 05/02/18 at 08:00; Stop 05/11/18 at 14:10; Status DC Magnesium Hydroxide (Milk Of Magnesia) 30 ml DAILYPRN PRN PO CONSTIPATION Last administered on 05/28/18at 23:31; Start 04/24/18 at 14:00 Menthol/Methyl Salicylate (Bengay Cream) apply to both ankles BIDP PRN TOP PAIN OR DISCOMFORT Last administered on 05/29/18at 08:20; Start 05/10/18 at 17:45 Miscellaneous (Unresolved Clarification Entry) SEE LABEL COMMENTS DAILY XX ; Start 05/08/18 at 09:00; Stop 05/08/18 at 14:17; Status DC Miscellaneous (Unresolved Clarification Entry) SEE LABEL COMMENTS DAILY XX ; Start 05/14/18 at 09:00; Stop 05/14/18 at 15:54; Status DC Miscellaneous (Unresolved Clarification Entry) SEE LABEL COMMENTS DAILY XX ; Start 05/20/18 at 09:00; Stop 05/20/18 at 16:42; Status DC Miscellaneous (Unresolved Clarification Entry) SEE LABEL COMMENTS DAILY XX ; Start 05/23/18 at 09:00; Stop 05/24/18 at 07:14; Status DC Miscellaneous (Unresolved Clarification Entry) SEE LABEL COMMENTS DAILY XX ; Start 05/24/18 at 09:00; Stop 05/24/18 at 11:10; Status DC Miscellaneous (Unresolved Clarification Entry) SEE LABEL COMMENTS DAILY XX ; Start 05/25/18 at 09:00; Stop 05/25/18 at 12:15; Status DC Miscellaneous (Unresolved Clarification Entry) SEE LABEL COMMENTS DAILY XX ; Start 05/26/18 at 09:00; Stop 05/26/18 at 17:23; Status DC Nicotine (Nicoderm Cq 21mg) 1 patch DAILY TD Last administered on 05/29/18at 08:21; Start 04/26/18 at 09:00 Non-Formulary Medication ( See Comment Field Below ) SEE COMMENTS SECTION 1T@10 XX ; Start 05/04/18 at 10:00; Stop 05/05/18 at 09:59; Status UNV Olanzapine (ZyPREXA ZYDIS) 10 mg Q6HP PRN PO ANXIETY/AGITATION Last administered on 05/25/18at 23:01; Start 04/30/18 at 12:45; Stop 05/26/18 at 16:23; Status DC Ondansetron HCl (Zofran Odt) 4 mg Q6H PRN PO NAUSEA Last administered on 05/28/18at 17:51; Start 04/24/18 at 18:45 Oxcarbazepine (Trileptal) 150 mg BID PO ; Start 04/26/18 at 21:00; Stop 04/28/18 at 11:20; Status DC Oxcarbazepine (Trileptal) 150 mg QAM PO ; Start 04/25/18 at 09:00; Stop 04/26/18 at 16:04; Status DC Patient Own Medication (Patient'S Own Med) BENEFIBER PACKET: ADMINIS... BID PO Last administered on 05/29/18at 08:20; Start 05/02/18 at 21:00 Psyllium Hydrophilic Mucilloid (Metamucil) 1 pkt BID PO Last administered on 04/25/18at 11:25; Start 04/25/18 at 09:00; Stop 05/03/18 at 08:13; Status DC Quetiapine Fumarate (SEROquel) 25 mg TID PO ; Start 05/25/18 at 16:00; Status Cancel Quetiapine Fumarate (SEROquel) 50 mg DAILY@1500 PO Last administered on 04/29/18at 15:43; Start 04/28/18 at 15:00; Stop 05/01/18 at 15:59; Status DC Quetiapine Fumarate (SEROquel) 50 mg QAM PO Last administered on 05/03/18at 13:27; Start 04/29/18 at 09:00; Stop 05/03/18 at 21:24; Status DC Quetiapine Fumarate (SEROquel) 100 mg QAM PO ; Start 04/28/18 at 09:00; Stop 04/28/18 at 12:01; Status DC Quetiapine Fumarate (SEROquel) 150 mg DAILY@1500 PO ; Start 04/28/18 at 15:00; Status Cancel Quetiapine Fumarate (SEROquel) 150 mg QHS PO Last administered on 04/27/18at 00:09; Start 04/26/18 at 21:00; Stop 04/27/18 at 19:45; Status DC Quetiapine Fumarate (SEROquel) 200 mg QHS PO Last administered on 04/27/18at 20:29; Start 04/27/18 at 21:00; Stop 04/28/18 at 11:21; Status DC Quetiapine Fumarate (SEROquel) 250 mg QHS PO Last administered on 04/29/18at 21:01; Start 04/28/18 at 21:00; Stop 05/01/18 at 15:59; Status DC Sucralfate (Carafate Suspension) 1 gm ACHS PO Last administered on 05/29/18at 06:23; Start 04/24/18 at 21:00 Trazodone HCl (Desyrel) 50 mg QHSP PRN PO INSOMNIA; Start 04/24/18 at 14:00; Status Cancel Allergies Coded Allergies: Aripiprazole (Unverified Allergy, Unknown, 05/05/18) This reaction was never verified. It is SUSPECT. Carbitol (Unverified Allergy, Unknown, 01/13/13) Fluphenazine (Unverified Allergy, Unknown, 05/05/18) UNVERIFIED REACTION. IT IS SUSPECT [place] (Unverified Allergy, Unknown, 05/05/18) UNVERIFIED REACTION. IT IS SUSPECT. Meperidine (Unverified Allergy, Unknown, 01/13/13) Metoclopramide (Unverified Allergy, Unknown, 01/13/13) Olanzapine (Unverified Allergy, Unknown, 05/05/18) This is an unverified reaction. It is SUSPECT Penicillins (Unverified Allergy, Unknown, 01/13/13) Ranitidine (Unverified Allergy, Unknown, 01/13/13) Risperidone (Unverified Allergy, Unknown, 05/05/18) Unverified reaction. It is SUSPECT. Sertraline (Unverified Allergy, Unknown, 05/05/18) Unverified reaction. It is SUSPECT Valproic Acid (Unverified Allergy, Unknown, 05/05/18) Unverified reaction. It is SUSPECT Acetaminophen (Unverified Adverse Reaction, Intermediate, PT Hx hep C, hep B, 04/24/18) Haloperidol (Verified Adverse Reaction, Intermediate, makes me go crazy, 05/05/18) uNVERIFIED REACTION. IT IS SUSPECT BRENNA FLEMING MD May 29, 2018 10:54
[2018-05-29] MEDS: ONDANSETRON 4 MG ORAL DISINTEGRATING TAB (Q0162 PER 1MG) PO PRN ×2 (16:06→23:56)
[2018-05-29 18:00] VITALS: BP 130/85
[2018-05-30] MEDS: MOM 30ML SUSPENSION UDC PO PRN (00:13)
[2018-05-30] MEDS: SUCRALFATE SUSP 1GM/10ML UD PO SCH ×2 (06:33→12:06)
[2018-05-30 06:35] VITALS: BP 140/85
[2018-05-30] MEDS: CHLORHEXIDINE GLUCONATE 0.12 % 15ML UDC (PERIDEX ORAL RINSE) SSP SCH ×2 (08:19→13:10)
[2018-05-30] MEDS: BENEFIBER PO SCH (08:22)
[2018-05-30] MEDS: diphenhydrAMINE 25 MG CAP PO SCH (08:22)
[2018-05-30] MEDS: BENZOCAINE 10% 9GM TUBE (ANBESOL) MT SCH ×2 (08:23→13:10)
[2018-05-30] MEDS: ANALGESIC BALM CRM 120 GM TOP PRN (08:23)
[2018-05-30] MEDS: BENZTROPINE 1 MG TAB PO SCH (08:24)
[2018-05-30] MEDS: clonazePAM 1 MG TAB PO SCH (08:24)
[2018-05-30] MEDS: NICOTINE 21MG/24HR 1 EA TRANSDERMAL TD SCH (08:24)
[2018-05-30] MEDS: ALBUTEROL 90 MCG/ACT 8GM HFA INHALER INH PRN (08:27)
[2018-05-30] MEDS: FLUTICASONE PROP 0.05% NASAL SPRAY 16 GM (FLONASE) NARES PRN (08:27)
[2018-05-30] MEDS ORDERED: CLON1TAB8 PO (14:17)
[2018-05-30] MEDS ORDERED: Benzocaine Gel MT (14:17)
[2018-05-30] MEDS ORDERED: HALO10AM IM ×2 (14:17→14:27)
[2018-05-30] MEDS ORDERED: DIPH50CA PO (14:17)
[2018-05-30] MEDS ORDERED: FLUTISP NARES (14:17)
[2018-05-30] MEDS ORDERED: SUCR10SS PO (14:17)
[2018-05-30] MEDS ORDERED: ARIP10TAB PO (14:17)
[2018-05-30] MEDS ORDERED: PERI12LIQ SSP (14:17)
[2018-05-30] MEDS ORDERED: ONDA4TAB6 PO (14:17)
[2018-05-30] MEDS ORDERED: NICO21PAT TD (14:17)
[2018-05-30] MEDS ORDERED: BENZ-52 PO (14:17)
[2018-05-30] MEDS ORDERED: IBUP40TA PO (14:17)
--- NOTE | 2018-05-30 21:42 | MHDSPDOC ---
[facility] Discharge Summary Discharge Summary DATE OF ADMISSION: Apr 24, 2018 at 13:57 DATE OF DISCHARGE: May 30, 2018 at 14:40 DISCHARGE DIAGNOSES: 1. Bipolar Disorder 2. Cannabis Use Disorder REASON FOR ADMISSION: " "I have a problem with my boyfriend, I don't want to live with him." The patient was brought by the police as her called the police because for the last two weeks the patient has been manic. She is on prednisone for her hepatitis C. She is reportedly all around the place, cleaning her house. She reports that she feels like she is on speed. It is difficult to follow her as the patient is very tangential, circumstantial, and there is flight of ideas. The patient reports she has been allergic to most of the medications. She also reports she took herself off from Prozac as it was not helping her. She has started taking cannabidiol (CBD) oil which helps her mood as per the patient. Currently denies any suicidal or homicidal ideas." CONSULTANTS INVOLVED: None TREATMENT AND PROGRESS ON THE UNIT : Upon initial evaluation the patient was psychotic and manic. Her speech was very rapid and pressured, she has paranoid and bizarre delusions. She made excuses to receive treatment with different medications because she said that she was allergic to them although no allergy was ever confirmed. She took Seroquel for approximately 48 hours and she said that she had an allergic reaction, she took Latuda and she refused to continue taking it because she said that it made her nauseous, she says she would not take Abilify because she had had a terrible allergic reaction in the past to it. She refused to take Haldol she became very agitated and she had to be given Haldol and she developed no side effects to it. From them on she reported that she preferred to receive it via IM because if she received it orally she will develop canker sores. This were part of the delusions of the patient.. The following days, because she was receiving Haldol injections I offered the possibility of having her on Haldol Decanoate 100 mg every month and she accepted. Approximately one week after that she accepted to be on Abilify which was progressively increased to 10 mg daily. The patient has become more clear, more logical, she is not tangential, not circumstantial, she is not delusional, she is not homicidal, not suicidal and not psychotic. She definitely has improve d with her medications and she has become more insightful about her illness. HOSPITAL COURSE: As above DISCHARGE ASSESSMENT: Patient was not homicidal, not suicidal and not psychotic at the time of her discharge MENTAL STATUS EXAMINATION ON DISCHARGE: Patient is a 47-year old female, who is alert and cooperative during the interview, appears older than stated age, dressed in personal clothing Speech:Not rapid, but a little pressured and slurred. Normal tone and volume. spontaneous and fluent Language skills are intact Thought processes including: She was not circumstantial and not tangential, she has very mild thought blocking, just for a couple of seconds Thought content: Her anxious thoughts about taking medications have decreased. She is goal orientated, happy to know that she can go home Description of abnormal or psychotic thoughts: She is not paranoid anymore, she is not responding to internal stimuli, she doesn't have auditory or visual hallucinations, she is not homicidal and not suicidal Judgment: Limited Insight: Improving Orientation: oriented to person and place Recent and remote memory: limited Attention span and concentration: poor Language: intact Mood: Euthymic Affect: Full, reactive, congruent with mood DIAGNOSES: 1. Bipolar Disorder 2. Cannabis Use Disorder MEDICATIONS ON DISCHARGE: .Scheduled Aripiprazole (Aripiprazole) 10 Mg Tab, 1 TAB PO QAM for BIPOLAR DISORDER for 7 Days, #7 Benztropine Mesylate (Benztropine Mesylate) 1 Mg Tab, 1 MG PO BID for EXTRAPYRAMIDAL SIDE EFFECTS, #14 Chlorhexidine Gluconate (Chlorhexidine Gluconate) 0.12 % Yolanda, 15 ML SSP PC for ORAL ANTISEPTIC, #1 Clonazepam (Clonazepam) 1 Mg Tab, 1 MG PO TID for ANXIETY, #21 Haloperidol Decanoate (Haloperidol Decanoate) 100 Mg/Ml Soln, 100 MG IM Q28D@0900 for PSYCHOSIS/BIPOLAR DISORDER, #1 next dose on 06/19/18 Nicotine (Nicotine Transdermal Syst) 21 Mg/24 Hr Dis, 1 PATCH TD DAILY for NICOTINE WITHDRAWALS, #7 Sucralfate (Sucralfate) 1 Gm/10 Ml Sayda, 1 GM PO ACHS for GERD, #1 [Benzocaine Gel] 1 DOSE/9 GM GEL, 1 DOSE MT QID for TOOTHACHE, #1 Scheduled PRN Albuterol Sulfate (Ventolin Hfa) 108 Mcg/Act Aer, 2 PUFF INH Q4HP PRN for SHORTNESS OF BREATH, (Reported) Diphenhydramine HCl (Diphenhydramine HCl) 50 Mg Cap, 50 MG PO Q6HP PRN for EPS, #28 Fluticasone Propionate (Fluticasone Propionate) 50 Mcg/Act Spr, 1 SPRAY NARES BIDP PRN for post nasal drip, #1 Ibuprofen (Ibuprofen) 400 Mg Tab, 400 MG PO Q6HP PRN for PAIN, #28 Ondansetron (Ondansetron Odt) 4 Mg Tab, 4 MG PO Q6H PRN for NAUSEA for 7 Days, #28 PLAN/FOLLOWUP ARRANGEMENTS: Follow Up Care Education Label * Mental Health Appt 1 * Mental Health [facility] * Established With This Provider Yes * Therapist Maria T * Date Jun 14, 2018 * Time 13:15 * Address of Clinic or Practice [address] [place] [address] * * Additional information REGIS will schedule her injection visit after she sees Maria T on the . Follow Up Care Education Label * Medical * Medical Follow Up [facility] * Established With This Provider Yes * Therapist DR. GUERRERO * Date Jun 16, 2018 * Time 15:20 * Address of Clinic or Practice [address] [place] [address] * The amount of time spent in the coordination of care for this patient was approximately 30 minutes. Vital Signs/I&Os Vital Signs Date Time Temp Pulse Resp B/P (MAP) Pulse Ox O2 Delivery O2 Flow Rate FiO2 05/30/18 06:35 97.8 77 16 140/85 (103) 05/28/18 18:00 94 05/28/18 08:49 Room Air Medications Scheduled Aripiprazole (Aripiprazole) 10 Mg Tab, 1 TAB PO QAM for BIPOLAR DISORDER for 7 Days, #7 Benztropine Mesylate (Benztropine Mesylate) 1 Mg Tab, 1 MG PO BID for EXTRAPYRAMIDAL SIDE EFFECTS, #14 Chlorhexidine Gluconate (Chlorhexidine Gluconate) 0.12 % Yolanda, 15 ML SSP PC for ORAL ANTISEPTIC, #1 Clonazepam (Clonazepam) 1 Mg Tab, 1 MG PO TID for ANXIETY, #21 Haloperidol Decanoate (Haloperidol Decanoate) 100 Mg/Ml Soln, 100 MG IM Q28D@0900 for PSYCHOSIS/BIPOLAR DISORDER, #1 next dose on 06/19/18 Nicotine (Nicotine Transdermal Syst) 21 Mg/24 Hr Dis, 1 PATCH TD DAILY for NICOTINE WITHDRAWALS, #7 Sucralfate (Sucralfate) 1 Gm/10 Ml Sayda, 1 GM PO ACHS for GERD, #1 [Benzocaine Gel] 1 DOSE/9 GM GEL, 1 DOSE MT QID for TOOTHACHE, #1 Scheduled PRN Albuterol Sulfate (Ventolin Hfa) 108 Mcg/Act Aer, 2 PUFF INH Q4HP PRN for SHORTNESS OF BREATH, (Reported) Diphenhydramine HCl (Diphenhydramine HCl) 50 Mg Cap, 50 MG PO Q6HP PRN for EPS, #28 Fluticasone Propionate (Fluticasone Propionate) 50 Mcg/Act Spr, 1 SPRAY NARES BI DP PRN for post nasal drip, #1 Ibuprofen (Ibuprofen) 400 Mg Tab, 400 MG PO Q6HP PRN for PAIN, #28 Ondansetron (Ondansetron Odt) 4 Mg Tab, 4 MG PO Q6H PRN for NAUSEA for 7 Days, #28 Allergies Coded Allergies: Aripiprazole (Unverified Allergy, Unknown, 05/05/18) This reaction was never verified. It is SUSPECT. Carbitol (Unverified Allergy, Unknown, 01/13/13) Fluphenazine (Unverified Allergy, Unknown, 05/05/18) UNVERIFIED REACTION. IT IS SUSPECT [place] (Unverified Allergy, Unknown, 05/05/18) UNVERIFIED REACTION. IT IS SUSPECT. Meperidine (Unverified Allergy, Unknown, 01/13/13) Metoclopramide (Unverified Allergy, Unknown, 01/13/13) Olanzapine (Unverified Allergy, Unknown, 05/05/18) This is an unverified reaction. It is SUSPECT Penicillins (Unverified Allergy, Unknown, 01/13/13) Ranitidine (Unverified Allergy, Unknown, 01/13/13) Risperidone (Unverified Allergy, Unknown, 05/05/18) Unverified reaction. It is SUSPECT. Sertraline (Unverified Allergy, Unknown, 05/05/18) Unverified reaction. It is SUSPECT Valproic Acid (Unverified Allergy, Unknown, 05/05/18) Unverified reaction. It is SUSPECT Acetaminophen (Unverified Adverse Reaction, Intermediate, PT Hx hep C, hep B, 04/24/18) Haloperidol (Verified Adverse Reaction, Intermediate, makes me go crazy, 05/05/18) uNVERIFIED REACTION. IT IS SUSPECT BRENNA FLEMING MD May 30, 2018 21:37
[2018-06-17] MEDS ORDERED: HALOPERIDOL DECANOATE 100 MG/ML VIAL (J1631) IM SCH (09:00)
== END 2018-05-30 14:40 | disposition home or self-care (01) | DRG 885 ==
LOC: M ED 07:16 → M ED INP 13:57 → M PSY 14:45
PROVIDERS: ADMIT Psychiatry & Neurology Psychiatry; ATTEND Psychiatry & Neurology Psychiatry
DX: F31.2 Bipolar disorder, current episode manic severe with psychotic features (principal); F12.10 Cannabis abuse, uncomplicated; F17.210 Nicotine dependence, cigarettes, uncomplicated; K44.9 Diaphragmatic hernia without obstruction or gangrene; K21.9 Gastro-esophageal reflux disease without esophagitis; B19.20 Unspecified viral hepatitis C without hepatic coma; Z88.0 Allergy status to penicillin; Z88.8 Allergy status to other drugs, medicaments and biological substances; K58.9 Irritable bowel syndrome, unspecified; Z79.52 Long term (current) use of systemic steroids; Z79.899 Other long term (current) drug therapy; Z88.6 Allergy status to analgesic agent; Z91.14 Patient's other noncompliance with medication regimen

== ENCOUNTER 2019-12-09 09:40 | Inpatient (IN) | payer MEDICARE, MEDICAID ==
[~2019-12-09 09:40] MED LIST changes: -/LAMO10TA PO; -/ONDA4TA PO; +ARIP1TAB PO; +BENZ-52 PO; +Benzocaine Gel MT; +DIPH50CA PO; -FLUO20CA19 PO; +FLUO20CA22 PO; +FLUTISP NARES; +HALO10AM IM; +IBUP40TA PO; +LAMI1TAB7 PO; +NICO21PAT TD; +ONDA-1 PO; +ONDA4TAB6 PO; +PERI12LIQ SSP; +SUCR1ORA2 PO
[2019-12-09] MEDS ORDERED: NICOTINE 21MG/24HR 1 EA TRANSDERMAL ONE (11:59)
[2019-12-09] MEDS ORDERED: ALBUTEROL 90 MCG/ACT 8GM HFA INHALER ONE (11:59)
[2019-12-09] MEDS ORDERED: LORazepam 1 MG TAB As Ordered ONE (11:59)
[2019-12-09] MEDS ORDERED: LORazepam 1 MG TAB ONE (11:59)
[2019-12-09] MEDS ORDERED: ONDANSETRON 4 MG TAB As Ordered ONE (11:59)
[2019-12-09] MEDS ORDERED: ONDANSETRON 4 MG ORAL DISINTEGRATING TAB ONE ×2 (11:59→16:32)
[2019-12-09] MEDS ORDERED: ALBUTEROL 90 MCG/ACT 8GM HFA INHALER As Ordered ONE (12:00)
[2019-12-09] MEDS ORDERED: ONDANSETRON 4 MG ORAL DISINTEGRATING TAB As Ordered ONE ×2 (12:07→16:32)
[2019-12-09] MEDS ORDERED: NICOTINE 21MG/24HR 1 EA TRANSDERMAL As Ordered ONE (12:40)
[2019-12-09] MEDS ORDERED: clonazePAM 0.5 MG TAB ONE (20:37)
[2019-12-09] MEDS ORDERED: clonazePAM 0.5 MG TAB As Ordered ONE (20:37)
[2019-12-10] MEDS ORDERED: OLANZapine ORAL DISINTEGRATING TAB 5MG As Ordered ONE (01:47)
[2019-12-10] MEDS ORDERED: LORazepam 1 MG TAB ONE (03:18)
[2019-12-10] MEDS ORDERED: LORazepam 1 MG TAB As Ordered ONE (03:18)
[2019-12-10] MEDS ORDERED: ONDANSETRON 4 MG ORAL DISINTEGRATING TAB As Ordered ONE ×2 (04:23→17:24)
[2019-12-10] MEDS ORDERED: ONDANSETRON 4 MG ORAL DISINTEGRATING TAB ONE ×2 (04:23→16:06)
[2019-12-10] MEDS ORDERED: LORazepam 2 MG TAB ONE (10:13)
[2019-12-10] MEDS ORDERED: NICOTINE 21MG/24HR 1 EA TRANSDERMAL ONE (10:13)
[2019-12-10] MEDS ORDERED: chlorproMAZINE 25 MG TABLET As Ordered ONE (10:14)
[2019-12-10] MEDS ORDERED: NICOTINE 21MG/24HR 1 EA TRANSDERMAL As Ordered ONE (10:15)
[2019-12-10] MEDS ORDERED: LORazepam 2 MG TAB As Ordered ONE (10:15)
[2019-12-10] MEDS ORDERED: MOM 30ML SUSPENSION UDC ONE (16:06)
[2019-12-10] MEDS ORDERED: MOM 30ML SUSPENSION UDC As Ordered ONE (16:06)
[2019-12-10] MEDS ORDERED: LIDOCAINE 5% (LIDODERM) PATCH As Ordered ONE (20:25)
[2019-12-10] MEDS ORDERED: LIDOCAINE 5% (LIDODERM) PATCH ONE (20:25)
[2019-12-10] MEDS ORDERED: clonazePAM 1 MG TAB ONE (20:25)
[2019-12-10] MEDS ORDERED: clonazePAM 1 MG TAB As Ordered ONE (20:26)
[2019-12-11] MEDS ORDERED: ONDANSETRON 4 MG TAB ONE (04:51)
[2019-12-11] MEDS ORDERED: ONDANSETRON 4 MG TAB As Ordered ONE (04:51)
[2019-12-11] MEDS ORDERED: ONDANSETRON 4 MG ORAL DISINTEGRATING TAB ONE ×2 (04:51→12:51)
[2019-12-11] MEDS ORDERED: ONDANSETRON 4 MG ORAL DISINTEGRATING TAB As Ordered ONE ×2 (04:53→12:51)
[2019-12-11] MEDS ORDERED: NICOTINE 21MG/24HR 1 EA TRANSDERMAL As Ordered ONE (08:13)
[2019-12-11] MEDS ORDERED: SUCRALFATE 1 GM TAB As Ordered ONE (08:13)
[2019-12-11] MEDS ORDERED: SUCRALFATE 1 GM TAB ONE (08:13)
[2019-12-11] MEDS ORDERED: LIDOCAINE 5% (LIDODERM) PATCH ONE (08:13)
[2019-12-11] MEDS ORDERED: NICOTINE 21MG/24HR 1 EA TRANSDERMAL ONE (08:13)
[2019-12-11] MEDS ORDERED: LIDOCAINE 5% (LIDODERM) PATCH As Ordered ONE (08:48)
[2019-12-11] MEDS ORDERED: clonazePAM 0.5 MG TAB ONE (15:17)
[2019-12-11] MEDS ORDERED: clonazePAM 0.5 MG TAB As Ordered ONE (15:17)
[2019-12-11] MEDS ORDERED: ALBUTEROL 90 MCG/ACT 8GM HFA INHALER As Ordered ONE (15:23)
[2019-12-11] MEDS ORDERED: FLUO20CA22 PO (18:38)
[2019-12-11] MEDS ORDERED: SUCR1SS PO (18:38)
[2019-12-11] MEDS ORDERED: CLON1TAB17 PO (18:38)
[2019-12-11] MEDS: clonazePAM 1 MG TAB PO SCH (20:32)
[2019-12-11] MEDS: ALBUTEROL 90 MCG/ACT 8GM HFA INHALER INH PRN (20:32)
[2019-12-11] MEDS: SUCRALFATE 1 GM TAB PO SCH (20:32)
[2019-12-11] MEDS ORDERED: OLANZapine ORAL DISINTEGRATING TAB 5MG PO SCH (21:00)
[2019-12-11] MEDS: ACETAMINOPHEN TAB 650MG DOSE (2X325MG) PO PRN (21:45)
[2019-12-11] MEDS: MOM 30ML SUSPENSION UDC PO PRN (21:45)
[2019-12-11] MEDS: ANALGESIC BALM CRM 120 GM TOP PRN (23:43)
[2019-12-12] MEDS: MAALOX 30 ML SUSP *UDC PO PRN ×2 (02:53→12:27)
[2019-12-12] MEDS: ALBUTEROL 90 MCG/ACT 8GM HFA INHALER INH PRN ×3 (02:57→18:32)
[2019-12-12] MEDS: ONDANSETRON 4 MG ORAL DISINTEGRATING TAB PO PRN ×2 (05:42→18:33)
[2019-12-12 06:08] VITALS: BP 135/71
[2019-12-12] MEDS: SUCRALFATE 1 GM TAB PO SCH ×2 (08:40→20:16)
[2019-12-12] MEDS: NICOTINE 21MG/24HR 1 EA TRANSDERMAL TD SCH (08:40)
[2019-12-12] MEDS: clonazePAM 0.5 MG TAB PO SCH (08:40)
[2019-12-12] MEDS: CEPACOL LOZENGE PO PRN (16:05)
[2019-12-12] MEDS: ANALGESIC BALM CRM 120 GM TOP PRN (16:06)
[2019-12-12 16:45] VITALS: BP 134/76
[2019-12-12] MEDS: clonazePAM 1 MG TAB PO SCH (20:16)
[2019-12-12] MEDS: ACETAMINOPHEN TAB 650MG DOSE (2X325MG) PO PRN (21:44)
[2019-12-12] MEDS ORDERED: diphenhydrAMINE 50MG CAP PO ONE (22:15)
[2019-12-13] MEDS: ANALGESIC BALM CRM 120 GM TOP PRN ×2 (00:04→11:44)
[2019-12-13 02:22] VITALS: BP 127/76
[2019-12-13] MEDS: ONDANSETRON 4 MG ORAL DISINTEGRATING TAB PO PRN ×3 (02:34→18:15)
[2019-12-13] MEDS: ALBUTEROL 90 MCG/ACT 8GM HFA INHALER INH PRN ×3 (02:41→21:50)
[2019-12-13] MEDS: CEPACOL LOZENGE PO PRN ×3 (04:27→18:15)
[2019-12-13] MEDS: ACETAMINOPHEN TAB 650MG DOSE (2X325MG) PO PRN ×2 (05:09→21:55)
[2019-12-13 06:52] VITALS: BP 132/88
[2019-12-13] MEDS: clonazePAM 0.5 MG TAB PO SCH (08:11)
[2019-12-13] MEDS: NICOTINE 21MG/24HR 1 EA TRANSDERMAL TD SCH (08:12)
[2019-12-13] MEDS: SUCRALFATE 1 GM TAB PO SCH ×2 (08:15→21:20)
--- NOTE | 2019-12-13 17:47 | MHIPNPDOC ---
[facility] Progress Note Progress Note DATE OF SERVICE: 12/13/19 HISTORY: Patient is a 49-year old Female with long history of psychiatric admissions. She has a diagnosis of Bipolar I Disorder, currently manic episode VITAL SIGNS: See below. NEW TEST RESULTS: . CURRENT MEDICATIONS: See below. MENTAL STATUS EXAMINATION: Patient is a 49-year old female, who is manic and labile on the unit. Speech: Is Loud, pressured with flight of ideas. Language skills are Thought processes including: disorganized and scattered Thought content: SHe may have delusions about her medications, allergies to antipsychotic medications and has somatic complaints of nausea and vomiting Abstract reasoning, and computation: unable to perform due to her kevin Description of associations: Patient is very labile Description of abnormal or psychotic thoughts: Patient presents with persecutory delusions, observed on the phone crying and believing that her medications are "messed up" but patient is refusing all antipsychotic medications and states all cause her an allergic reaction Judgment: Poor Insight: Poor Orientation: Patient is alert and oriented to person, place and time but not to situation Recent and remote memory: Intact but patient is disorganized Attention span and concentration: Poor Language: Fund of knowledge: Fair Mood: Labile. Affect: Anxious, Manic, Flight of ideas, at times ruminative DIAGNOSES: 1. Bipolar I Disorder, Recurrent, Manic ASSESSMENT: Patient is not stable. Patient presents with poor insight and judgment. She is intrusive and has poor boundaries with staff and peers. Order for two physician consent, patient will need treatment over objection and further hospitalization at a higher level facility due to continued kevin TIME SPENT: 15 minutes. Vital Signs Vital Signs Date Time Temp Pulse Resp B/P (MAP) Pulse Ox O2 Delivery O2 Flow Rate FiO2 12/13/19 06:52 97.6 104 20 132/88 (103) 12/13/19 02:22 100 Room Air Current Medications Current Medications Medications (Trade) Dose Ordered Sig/Jackelyn Route PRN Reason Start Time Stop Time Status Last Admin Dose Admin Acetaminophen (Tylenol Tab) 650 mg Q6H PRN PO HEADACHE OR DISCOMFORT 12/11/19 19:00 12/13/19 05:09 Al Hydrox/Mg Hydrox/Simethicone (Mylanta) 30 ml Q4H PRN PO HEARTBURN/INDIGESTION 12/11/19 19:00 12/12/19 12:27 Albuterol Sulfate (Proventil, Ventolin Hfa) 2 puff Q6H PRN INH SHORTNESS OF BREATH 12/11/19 18:00 12/13/19 09:57 Aripiprazole (AbiLIFY) 5 mg QHS PO 12/11/19 21:00 12/11/19 18:00 DC Aripiprazole (AbiLIFY) 5 mg QHS PO 12/12/19 21:00 Cetylpyridinium Chloride (Cepacol) 1 karoline Q6H PRN PO SORE THROAT 12/12/19 12:00 12/13/19 11:44 Clonazepam (KlonoPIN) 0.5 mg QAM PO 12/12/19 09:00 12/13/19 08:11 Clonazepam (KlonoPIN) 1 mg QHS PO 12/11/19 21:00 12/12/19 20:16 Docusate Sodium (Colace) 100 mg BID PRN PO CONSTIPATION 12/11/19 19:00 Home Med (Med Rec Complete!) ASDIRECTED XX 12/11/19 18:45 12/11/19 18:40 DC Lidocaine (Lidoderm Patch) 1 patch DAILY PRN TD LOWER BACK PAIN 12/12/19 09:00 Magnesium Hydroxide (Milk Of Magnesia) 30 ml DAILYPRN PRN PO CONSTIPATION 12/11/19 19:00 12/11/19 21:45 Menthol/Methyl Salicylate (Bengay Cream) APPLY TO BILATERAL KNEES ... Q8H PRN TOP KNEE PAIN 12/11/19 19:00 12/13/19 11:44 Nicotine (Nicoderm Cq 21mg) 1 patch DAILY TD 12/12/19 09:00 12/13/19 08:12 Non-Formulary Medication ( See Comment Field Below ) REMOVE LIDODERM PATCH DAILY@21 XX 12/11/19 21:00 12/11/19 20:32 Olanzapine (ZyPREXA ZYDIS) 5 mg QHS PO 12/11/19 21:00 12/12/19 11:49 DC 12/11/19 22:22 Ondansetron HCl (Zofran Odt) 4 mg Q8H PRN PO NAUSEA 12/11/19 19:00 12/13/19 05:08 Polyethylene Glycol (Miralax) 1 pkt DAILY PRN PO CONSTIPATION 12/11/19 19:00 Sucralfate (Carafate) 1 gm BID PO 12/11/19 21:00 12/12/19 20:16 Allergies Coded Allergies: Penicillins (Verified Allergy, Unknown, 12/11/19) aripiprazole (Verified Allergy, Unknown, This reaction was never verified. It is SUSPECT., 12/11/19) diethylene glycol (Verified Allergy, Unknown, 12/11/19) ALSO CALLED CARBITOL divalproex sodium (Verified Allergy, Unknown, Unverified reaction. It is SUSPECT, 12/11/19) fluphenazine (Verified Allergy, Unknown, UNVERIFIED REACTION. IT IS SUSPECT, 12/11/19) lithium (Verified Allergy, Unknown, UNVERIFIED REACTION. IT IS SUSPECT., 12/11/19) meperidine (Verified Allergy, Unknown, 12/11/19) metoclopramide (Verified Allergy, Unknown, 12/11/19) olanzapine (Verified Allergy, Unknown, 12/11/19) ranitidine (Verified Allergy, Unknown, 12/11/19) risperidone (Verified Allergy, Unknown, Unverified reaction. It is SUSPECT., 12/11/19) sertraline (Verified Allergy, Unknown, Unverified reaction. It is SUSPECT, 12/11/19) acetaminophen (Verified Adverse Reaction, Unknown, PT HX HEP B, HEP C, 12/11/19) haloperidol (Verified Adverse Reaction, Unknown, makes me go crazy, 12/11/19) uNVERIFIED REACTION. IT IS SUSPECT SANDI MORAN NP Dec 13, 2019 17:37
[2019-12-13 18:00] VITALS: BP_SYST 125; BP_SYST 152; BP_DIAS 64; BP_DIAS 84
[2019-12-13] MEDS: clonazePAM 1 MG TAB PO SCH (21:20)
[2019-12-14] MEDS: MAALOX 30 ML SUSP *UDC PO PRN (00:55)
[2019-12-14] MEDS: CEPACOL LOZENGE PO PRN ×3 (00:55→14:35)
[2019-12-14 07:14] VITALS: BP 133/74
[2019-12-14] MEDS: ONDANSETRON 4 MG ORAL DISINTEGRATING TAB PO PRN ×2 (08:15→17:17)
[2019-12-14] MEDS: ALBUTEROL 90 MCG/ACT 8GM HFA INHALER INH PRN ×2 (08:16→15:30)
[2019-12-14] MEDS: NICOTINE 21MG/24HR 1 EA TRANSDERMAL TD SCH (08:17)
[2019-12-14] MEDS: clonazePAM 0.5 MG TAB PO SCH (08:18)
[2019-12-14] MEDS: SUCRALFATE 1 GM TAB PO SCH ×2 (08:18→20:14)
--- NOTE | 2019-12-14 09:10 | MHIPNPDOC ---
[facility] Progress Note Progress Note DATE OF SERVICE: 12/14/19 HISTORY: Patient is a 49 year old Single, Disabled, Female who is diagnosed Bipolar Disorder, she has numerous psychiatric hospitalizations in [place], [place] (2); [facility] [place]; [facility] (3); [facility]; [facility], [place], [place] and [place], [place] (4). She was a 9.41 to [facility] VITAL SIGNS: See below. NEW TEST RESULTS: CURRENT MEDICATIONS: See below. MENTAL STATUS EXAMINATION: Patient is a49 year old female, who is reporting improved sleep. She has minimal improvement in her lability and kevin. But she is still hyperverbal and tangential with pressured speech and flight of ideas. she is mildly ruminative Speech: Is hyperverbal, rapid and pressured. Language skills are . Thought processes including: continues to be scattered and disorganized but this is somewhat improved from a few days ago. Thought content: She is somewhat delusional/paranoid about medications, reporting that numerous medications causes her side effects. Many coincide with her gastric issues but are not true allergies. She appears to have racing thoughts as evidence by her rapid hyperverbal speech Description of abnormal or psychotic thoughts: Ruminates about other psy chiatrists and medications that have been given to her that caused her side effects Judgment: Poor Insight: Limited. Orientation: . Recent and remote memory: Intact. Attention span and concentration: somewhat poor during the interview at times Language: . Fund of knowledge: Fair. Mood: Anxious and Worried Affect is Labile. DIAGNOSES: 1. Bipolar I, Recurrent, Manic Episode ASSESSMENT: Patient was directed to take the Abilify last night with much encouragement. She reports today that she cannot take Abilify. Informed that patient that I have placed her on 2 PC legal status as she continues to refuse medications that will stabilize her. Patient initially requested another provider to make recommendations "as a second opinion". I encouraged to seek any of the health professionals to encourage her to take a Mood Stabilizing medication. At this time she is willing to take Vraylar 3 mg at bedtime. She states that in the past Vraylar gave her headaches and Ibuprofen has been ordered. Abilify has been discontinued. She is still requesting numerous other medications including Prozac which I believe is activating her bipolar symptoms. She is also requests an increase in Klonopin which has been denied. MANAGEMENT PLAN: . TIME SPENT: 25 minutes. Vital Signs Vital Signs Date Time Temp Pulse Resp B/P (MAP) Pulse Ox O2 Delivery O2 Flow Rate FiO2 12/14/19 07:14 98.6 112 18 133/74 (93) 100 Room Air Current Medications Current Medications Medications (Trade) Dose Ordered Sig/Jackelyn Route PRN Reason Start Time Stop Time Status Last Admin Dose Admin Acetaminophen (Tylenol Tab) 650 mg Q6H PRN PO HEADACHE OR DISCOMFORT 12/11/19 19:00 12/13/19 21:55 Al Hydrox/Mg Hydrox/Simethicone (Mylanta) 30 ml Q4H PRN PO HEARTBURN/INDIGESTION 12/11/19 19:00 12/14/19 00:55 Albuterol Sulfate (Proventil, Ventolin Hfa) 2 puff Q6H PRN INH SHORTNESS OF BREATH 12/11/19 18:00 12/14/19 08:16 Aripiprazole (AbiLIFY) 5 mg QHS PO 12/11/19 21:00 12/11/19 18:00 DC Aripiprazole (AbiLIFY) 5 mg QHS PO 12/12/19 21:00 12/13/19 21:21 Cetylpyridinium Chloride (Cepacol) 1 karoline Q6H PRN PO SORE THROAT 12/12/19 12:00 12/14/19 08:18 Clonazepam (KlonoPIN) 0.5 mg QAM PO 12/12/19 09:00 12/14/19 08:18 Clonazepam (KlonoPIN) 1 mg QHS PO 12/11/19 21:00 12/13/19 21:20 Cyclobenzaprine HCl (Flexeril) 5 mg BIDP PRN PO MUSCLE SPASMS 12/13/19 21:15 Docusate Sodium (Colace) 100 mg BID PRN PO CONSTIPATION 12/11/19 19:00 Home Med (Med Rec Complete!) ASDIRECTED XX 12/11/19 18:45 12/11/19 18:40 DC Lidocaine (Lidoderm Patch) 1 patch DAILY PRN TD LOWER BACK PAIN 12/12/19 09:00 Magnesium Hydroxide (Milk Of Magnesia) 30 ml DAILYPRN PRN PO CONSTIPATION 12/11/19 19:00 12/11/19 21:45 Menthol/Methyl Salicylate (Bengay Cream) APPLY TO BILATERAL KNEES ... Q8H PRN TOP KNEE PAIN 12/11/19 19:00 12/13/19 11:44 Nicotine (Nicoderm Cq 21mg) 1 patch DAILY TD 12/12/19 09:00 12/14/19 08:17 Non-Formulary Medication ( See Comment Field Below ) REMOVE LIDODERM PATCH DAILY@21 XX 12/11/19 21:00 12/13/19 21:24 Olanzapine (ZyPREXA ZYDIS) 5 mg QHS PO 12/11/19 21:00 12/12/19 11:49 DC 12/11/19 22:22 Ondansetron HCl (Zofran Odt) 4 mg Q8H PRN PO NAUSEA 12/11/19 19:00 12/14/19 08:15 Polyethylene Glycol (Miralax) 1 pkt DAILY PRN PO CONSTIPATION 12/11/19 19:00 Sucralfate (Carafate) 1 gm BID PO 12/11/19 21:00 12/14/19 08:18 Allergies Coded Allergies: Penicillins (Verified Allergy, Unknown, 12/11/19) diethylene glycol (Verified Allergy, Unknown, 12/11/19) ALSO CALLED CARBITOL divalproex sodium (Verified Allergy, Unknown, Unverified reaction. It is SUSPECT, 12/11/19) fluphenazine (Verified Allergy, Unknown, UNVERIFIED REACTION. IT IS SUSPECT, 12/11/19) lithium (Verified Allergy, Unknown, UNVERIFIED REACTION. IT IS SUSPECT., 12/11/19) meperidine (Verified Allergy, Unknown, 12/11/19) metoclopramide (Verified Allergy, Unknown, 12/11/19) olanzapine (Verified Allergy, Unknown, 12/11/19) ranitidine (Verified Allergy, Unknown, 12/11/19) risperidone (Verified Allergy, Unknown, Unverified reaction. It is SUSPECT., 12/11/19) sertraline (Verified Allergy, Unknown, Unverified reaction. It is SUSPECT, 12/11/19) acetaminophen (Verified Adverse Reaction, Unknown, PT HX HEP B, HEP C, 12/11/19) haloperidol (Verified Adverse Reaction, Unknown, makes me go crazy, 12/11/19) uNVERIFIED REACTION. IT IS SUSPECT SANDI MORAN NP Dec 14, 2019 09:10
[2019-12-14] MEDS: ANALGESIC BALM CRM 120 GM TOP PRN (14:34)
[2019-12-14 16:00] VITALS: BP 139/85
[2019-12-14] MEDS: clonazePAM 1 MG TAB PO SCH (20:14)
[2019-12-14] MEDS: CYCLOBENZAPRINE 5MG TABLET PO PRN (22:02)
[2019-12-15] MEDS: CEPACOL LOZENGE PO PRN ×2 (00:08→21:02)
[2019-12-15] MEDS: ALBUTEROL 90 MCG/ACT 8GM HFA INHALER INH PRN ×3 (00:09→20:00)
[2019-12-15] MEDS: ANALGESIC BALM CRM 120 GM TOP PRN ×3 (00:09→21:02)
[2019-12-15] MEDS: MAALOX 30 ML SUSP *UDC PO PRN (01:55)
[2019-12-15] MEDS: ONDANSETRON 4 MG ORAL DISINTEGRATING TAB PO PRN ×2 (02:55→21:02)
[2019-12-15] MEDS: NICOTINE 21MG/24HR 1 EA TRANSDERMAL TD SCH (08:46)
[2019-12-15] MEDS: SUCRALFATE 1 GM TAB PO SCH (08:46)
[2019-12-15] MEDS: clonazePAM 0.5 MG TAB PO SCH (08:51)
[2019-12-15] MEDS ORDERED: LORazepam 1 MG TAB PO ONE (13:00)
[2019-12-15 16:09] VITALS: BP 144/85
[2019-12-15] MEDS: ACETAMINOPHEN TAB 650MG DOSE (2X325MG) PO PRN (20:00)
[2019-12-15] MEDS: clonazePAM 1 MG TAB PO SCH (20:00)
[2019-12-15] MEDS: CARIPRAZINE 3MG CAPSULE (VRAYLAR) PO SCH (20:00)
[2019-12-15] MEDS: SUCRALFATE SUSP 1GM/10ML UD PO SCH (20:00)
[2019-12-15] MEDS: DOCUSATE SODIUM 100 MG CAP PO PRN (21:01)
[2019-12-15] MEDS ORDERED: diphenhydrAMINE 50MG CAP PO ONE (23:30)
[2019-12-16] MEDS: CEPACOL LOZENGE PO PRN ×3 (03:23→21:11)
[2019-12-16] MEDS: LIDOCAINE 5% (LIDODERM) PATCH TD PRN (03:23)
[2019-12-16 06:39] VITALS: BP 146/84
[2019-12-16] MEDS: ONDANSETRON 4 MG ORAL DISINTEGRATING TAB PO PRN ×2 (07:06→18:27)
[2019-12-16] MEDS: clonazePAM 0.5 MG TAB PO SCH (08:00)
[2019-12-16] MEDS: SUCRALFATE SUSP 1GM/10ML UD PO SCH ×2 (08:00→21:10)
[2019-12-16] MEDS: NICOTINE 21MG/24HR 1 EA TRANSDERMAL TD SCH (08:01)
[2019-12-16] MEDS: LORazepam 1 MG TAB PO PRN ×2 (13:48→18:27)
[2019-12-16 16:35] VITALS: BP 106/63
[2019-12-16] MEDS: ACETAMINOPHEN TAB 650MG DOSE (2X325MG) PO PRN (17:10)
[2019-12-16] MEDS: CARIPRAZINE 3MG CAPSULE (VRAYLAR) PO SCH (21:00)
[2019-12-16] MEDS: clonazePAM 1 MG TAB PO SCH (21:00)
[2019-12-16] MEDS: ALBUTEROL 90 MCG/ACT 8GM HFA INHALER INH PRN (21:11)
[2019-12-16] MEDS: ANALGESIC BALM CRM 120 GM TOP PRN (21:12)
[2019-12-16] MEDS: MAALOX 30 ML SUSP *UDC PO PRN (22:47)
[2019-12-17] MEDS: ONDANSETRON 4 MG ORAL DISINTEGRATING TAB PO PRN ×2 (04:31→08:19)
[2019-12-17] MEDS: CYCLOBENZAPRINE 5MG TABLET PO PRN ×2 (04:33→19:57)
[2019-12-17 06:22] VITALS: BP 148/80
[2019-12-17] MEDS: NICOTINE 21MG/24HR 1 EA TRANSDERMAL TD SCH (08:16)
[2019-12-17] MEDS: SUCRALFATE SUSP 1GM/10ML UD PO SCH ×2 (08:16→19:58)
[2019-12-17] MEDS: clonazePAM 0.5 MG TAB PO SCH (08:16)
[2019-12-17] MEDS: ANALGESIC BALM CRM 120 GM TOP PRN ×2 (08:20→21:46)
[2019-12-17] MEDS: ALBUTEROL 90 MCG/ACT 8GM HFA INHALER INH PRN ×3 (08:50→19:56)
[2019-12-17] MEDS: ACETAMINOPHEN TAB 650MG DOSE (2X325MG) PO PRN ×2 (08:51→21:45)
--- NOTE | 2019-12-17 11:11 | MHIPNPDOC ---
[facility] Progress Note Progress Note DATE OF SERVICE: 12/17/19 HISTORY: Patient is a49 year old Single, Disabled, Female who was brought to [facility] for Bizarre, Manic and Delusional Behaviors. VITAL SIGNS: See below. NEW TEST RESULTS: . CURRENT MEDICATIONS: See below. MENTAL STATUS EXAMINATION: Patient is a 49-year old female, who is currently Labile, Manic and has no insight and judgement. She is refusing medications and makes numerous med ications for which she does not meet criteria. Reviewed with patient need for compliance with current medication regimen. She states that she not willing to take Vraylar it makes her have headaches. She was also unwilling to take Abilify which she reported gave her stomach aches. She was then unwilling to take Abilify Maintena and stated that she was allergic, although never having it. She has been unwilling to take Thorazine for agitation, stating again that she is allergic. She was also unwilling to take Zyprexa for agitation because she is allergic. She reports numerous medications that she is allergic to including Caberfae which she would benefit from. Many of her example of allergic reactions are not true allergic reactions. She states today that she is only willing to take Invega as this is the only medications she has not taken. Vraylar is the best option for the patient as she reports minimal side effects, but refused the bedtime dose. In today's interview, patient presents as manic, loud, pressured speech, labile and manic. Speech: Is Loud, Hyperverbal, Rapid and Pressured, Flight of ideas. Language skills are Good Thought processes including: Disorganized, Scattered, Flight of Ideas, Thought content: May be moderately delusional about allergies to medications, believing that all cause her allergic reactions. Abstract reasoning, and computation: Poor Description of associations: Description of abnormal or psychotic thoughts: Disorganized, ruminative, scattered thinking Judgment: Poor Insight: Poor Orientation: Alert and oriented Recent and remote memory: Intact Attention span and concentration: Fair Language: Good Fund of knowledge: Congruent with her education Mood: Irritable, Labile, Anxious Affect: Labile, mildly tearful DIAGNOSES: 1. Bipolar I Disorder ASSESSMENT: Patient continues to have poor insight and judgment and refusing medications that will stabilize her. Patient has been placed on 2 Physician Consent. MANAGEMENT PLAN: At this time, treatment team will move forward with treatment over objection. TIME SPENT: 30 minutes. Vital Signs Vital Signs Date Time Temp Pulse Resp B/P (MAP) Pulse Ox O2 Delivery O2 Flow Rate FiO2 12/17/19 06:22 98.4 116 20 148/80 (102) 12/16/19 16:35 99 Room Air Current Medications Current Medications Medications (Trade) Dose Ordered Sig/Jackelyn Route PRN Reason Start Time Stop Time Status Last Admin Dose Admin Acetaminophen (Tylenol Tab) 650 mg Q6H PRN PO HEADACHE OR DISCOMFORT 12/11/19 19:00 12/17/19 08:51 Al Hydrox/Mg Hydrox/Simethicone (Mylanta) 30 ml Q4H PRN PO HEARTBURN/INDIGESTION 12/11/19 19:00 12/16/19 22:47 Albuterol Sulfate (Proventil, Ventolin Hfa) 2 puff Q6H PRN INH SHORTNESS OF BREATH 12/11/19 18:00 12/17/19 08:50 Aripiprazole (AbiLIFY) 5 mg QHS PO 12/11/19 21:00 12/11/19 18:00 DC Aripiprazole (AbiLIFY) 5 mg QHS PO 12/12/19 21:00 12/15/19 12:54 DC 12/13/19 21:21 Cariprazine (Vraylar) 3 mg QHS PO 12/15/19 21:00 12/15/19 20:00 Cetylpyridinium Chloride (Cepacol) 1 karoline Q6H PRN PO SORE THROAT 12/12/19 12:00 12/16/19 21:11 Clonazepam (KlonoPIN) 0.5 mg QAM PO 12/12/19 09:00 12/17/19 08:16 Clonazepam (KlonoPIN) 1 mg QHS PO 12/11/19 21:00 12/15/19 20:00 Cyclobenzaprine HCl (Flexeril) 5 mg BIDP PRN PO MUSCLE SPASMS 12/13/19 21:15 12/17/19 04:33 Docusate Sodium (Colace) 100 mg BID PRN PO CONSTIPATION 12/11/19 19:00 12/15/19 21:01 Home Med (Med Rec Complete!) ASDIRECTED XX 8/18/20 18:45 12/11/19 18:40 DC Lidocaine (Lidoderm Patch) 1 patch DAILY PRN TD LOWER BACK PAIN 12/12/19 09:00 12/16/19 03:23 Lorazepam (Ativan) 1 mg BIDP PRN PO ANXIETY/AGITATION 12/16/19 13:45 12/16/19 18:27 Magnesium Hydroxide (Milk Of Magnesia) 30 ml DAILYPRN PRN PO CONSTIPATION 12/11/19 19:00 12/11/19 21:45 Menthol/Methyl Salicylate (Bengay Cream) APPLY TO BILATERAL KNEES ... Q8H PRN TOP KNEE PAIN 12/11/19 19:00 12/17/19 08:20 Nicotine (Nicoderm Cq 21mg) 1 patch DAILY TD 12/12/19 09:00 12/17/19 08:16 Non-Formulary Medication ( See Comment Field Below ) REMOVE LIDODERM PATCH DAILY@21 XX 12/11/19 21:00 12/16/19 21:15 Olanzapine (ZyPREXA ZYDIS) 5 mg Q4HP PRN PO AGITATION 12/14/19 21:15 Olanzapine (ZyPREXA ZYDIS) 5 mg QHS PO 12/11/19 21:00 12/12/19 11:49 DC 12/11/19 22:22 Ondansetron HCl (Zofran Odt) 4 mg Q8H PRN PO NAUSEA 12/11/19 19:00 12/17/19 08:19 Polyethylene Glycol (Miralax) 1 pkt DAILY PRN PO CONSTIPATION 12/11/19 19:00 Sucralfate (Carafate Suspension) 1 gm BID PO 12/15/19 21:00 12/17/19 08:16 Sucralfate (Carafate) 1 gm BID PO 12/11/19 21:00 12/15/19 12:59 DC 12/15/19 08:46 Allergies Coded Allergies: Penicillins (Unverified Allergy, Unknown, 12/14/19) diethylene glycol (Unverified Allergy, Unknown, 12/14/19) ALSO CALLED CARBITOL divalproex sodium (Unverified Allergy, Unknown, Unverified reaction. It is SUSPECT, 12/14/19) fluphenazine (Unverified Allergy, Unknown, UNVERIFIED REACTION. IT IS SUSPECT, 12/14/19) lithium (Unverified Allergy, Unknown, UNVERIFIED REACTION. IT IS SUSPECT., 12/14/19) meperidine (Unverified Allergy, Unknown, 12/14/19) metoclopramide (Unverified Allergy, Unknown, 12/14/19) olanzapine (Unverified Allergy, Unknown, 12/14/19) PT CANNOT VERBALIZE ACTUAL REACTION TO MEDICATION, HAS TAKEN PREVIOUS DOSES ON UNIT WITHOUT INCIDENT ranitidine (Unverified Allergy, Unknown, 12/14/19) risperidone (Unverified Allergy, Unknown, Unverified reaction. It is SUSPECT., 12/14/19) sertraline (Unverified Allergy, Unknown, Unverified reaction. It is SUSPECT, 12/14/19) acetaminophen (Verified Adverse Reaction, Unknown, PT HX HEP B, HEP C, 12/11/19) haloperidol (Verified Adverse Reaction, Unknown, makes me go crazy, ) uNVERIFIED REACTION. IT IS SUSPECT SANDI MORAN NP Dec 17, 2019 11:11
[2019-12-17] MEDS: MAALOX 30 ML SUSP *UDC PO PRN (11:16)
[2019-12-17] MEDS: LIDOCAINE 5% (LIDODERM) PATCH TD PRN (11:18)
[2019-12-17] MEDS: CEPACOL LOZENGE PO PRN ×2 (14:35→19:57)
[2019-12-17] MEDS: LORazepam 1 MG TAB PO PRN ×2 (14:35→19:57)
[2019-12-17 17:42] VITALS: BP 138/76
[2019-12-17] MEDS: clonazePAM 1 MG TAB PO SCH (19:58)
[2019-12-17] MEDS: CARIPRAZINE 3MG CAPSULE (VRAYLAR) PO SCH ×2 (19:58→21:00)
[2019-12-18] MEDS: ALBUTEROL 90 MCG/ACT 8GM HFA INHALER INH PRN ×3 (01:19→21:34)
[2019-12-18] MEDS: OLANZapine ORAL DISINTEGRATING TAB 5MG PO PRN (01:19)
[2019-12-18] MEDS: ONDANSETRON 4 MG ORAL DISINTEGRATING TAB PO PRN (01:19)
[2019-12-18] MEDS: CEPACOL LOZENGE PO PRN ×4 (01:19→21:34)
[2019-12-18] MEDS: ANALGESIC BALM CRM 120 GM TOP PRN ×3 (07:37→20:22)
[2019-12-18] MEDS: clonazePAM 0.5 MG TAB PO SCH (09:00)
[2019-12-18] MEDS: SUCRALFATE SUSP 1GM/10ML UD PO SCH ×2 (09:29→20:20)
[2019-12-18] MEDS: NICOTINE 21MG/24HR 1 EA TRANSDERMAL TD SCH ×2 (09:30→09:55)
[2019-12-18] MEDS ORDERED: diphenhydrAMINE 50MG/ML VIAL (J1200) IM ONE (10:00)
[2019-12-18] MEDS ORDERED: HALOPERIDOL 5MG/ML VIAL (J1630 PER 1) IM ONE (10:00)
[2019-12-18] MEDS ORDERED: LORazepam 2 MG/ML VIAL IM ONE (10:00)
--- NOTE | 2019-12-18 14:40 | MHIPNPDOC ---
[facility] Progress Note Progress Note DATE OF SERVICE: 12/18/19 HISTORY: Patient is a 49 year old Single, Disabled, Undomiciled, Female who presented to the ED with bizarre, delusional, manic and disorganized thoughts VITAL SIGNS: See below. NEW TEST RESULTS: . CURRENT MEDICATIONS: See below. MENTAL STATUS EXAMINATION: Patient is a 49-year old female, who continues to manic and labile with loud, pressured, speech. Has flight of ideas Speech: Is pressure, rapid. Language skills are Good Thought processes including: Disorganized and scattered but reality based Thought content: Paranoid Abstract reasoning, and computation: fair Description of associations: some persecutory delusions but mild, reports numerous allergies to medications Description of abnormal or psychotic thoughts: observed to be extraordinarily focused on medications that she cannot have due to allergies. Judgment: Poor Insight: Poor Orientation: Alert and oriented Recent and remote memory: Intact Attention span and concentration: fair Language: Good. Speaking Albanian as primary language Fund of knowledge: Average. Congruent with education Mood: Labile Affect: Bizarre at times, splitting, DIAGNOSES: 1. Bipolar II, current episode manic ASSESSMENT: Not stable for discharge, continuing to not take medications, focused on side effects. She is observed with poor insight and judgment MANAGEMENT PLAN: Continue to move forward with treatment over objection. TIME SPENT: 30 minutes. Vital Signs Vital Signs Date Time Temp Pulse Resp B/P (MAP) Pulse Ox O2 Delivery O2 Flow Rate FiO2 12/17/19 17:42 98.6 102 18 138/76 (96) 12/16/19 16:35 99 Room Air Current Medications Current Medications Medications (Trade) Dose Ordered Sig/Jackelyn Route PRN Reason Start Time Stop Time Status Last Admin Dose Admin Acetaminophen (Tylenol Tab) 650 mg Q6H PRN PO HEADACHE OR DISCOMFORT 12/11/19 19:00 12/17/19 21:45 Al Hydrox/Mg Hydrox/Simethicone (Mylanta) 30 ml Q4H PRN PO HEARTBURN/INDIGESTION 12/11/19 19:00 12/17/19 11:16 Albuterol Sulfate (Proventil, Ventolin Hfa) 2 puff Q6H PRN INH SHORTNESS OF BREATH 12/11/19 18:00 12/18/19 10:55 Aripiprazole (AbiLIFY) 5 mg QHS PO 12/11/19 21:00 12/11/19 18:00 DC Aripiprazole (AbiLIFY) 5 mg QHS PO 12/12/19 21:00 12/15/19 12:54 DC 12/13/19 21:21 Cariprazine (Vraylar) 3 mg QHS PO 12/15/19 21:00 12/15/19 20:00 Cetylpyridinium Chloride (Cepacol) 1 karoline Q6H PRN PO SORE THROAT 12/12/19 12:00 12/18/19 07:36 Clonazepam (KlonoPIN) 0.5 mg QAM PO 12/12/19 09:00 12/17/19 08:16 Clonazepam (KlonoPIN) 1 mg QHS PO 12/11/19 21:00 12/17/19 19:58 Cyclobenzaprine HCl (Flexeril) 5 mg BIDP PRN PO MUSCLE SPASMS 12/13/19 21:15 12/17/19 19:57 Docusate Sodium (Colace) 100 mg BID PRN PO CONSTIPATION 12/11/19 19:00 12/15/19 21:01 Home Med (Med Rec Complete!) ASDIRECTED XX 12/11/19 18:45 12/11/19 18:40 DC Lidocaine (Lidoderm Patch) 1 patch DAILY PRN TD LOWER BACK PAIN 12/12/19 09:00 12/17/19 11:18 Lorazepam (Ativan) 1 mg BIDP PRN PO ANXIETY/AGITATION 12/16/19 13:45 12/17/19 19:57 Magnesium Hydroxide (Milk Of Magnesia) 30 ml DAILYPRN PRN PO CONSTIPATION 12/11/19 19:00 12/11/19 21:45 Menthol/Methyl Salicylate (Bengay Cream) APPLY TO BILATERAL KNEES ... Q8H PRN TOP KNEE PAIN 12/11/19 19:00 12/18/19 07:37 Nicotine (Nicoderm Cq 21mg) 1 patch DAILY TD 12/12/19 09:00 12/18/19 09:55 Non-Formulary Medication ( See Comment Field Below ) REMOVE LIDODERM PATCH DAILY@21 XX 12/11/19 21:00 12/17/19 21:00 Olanzapine (ZyPREXA ZYDIS) 5 mg Q4HP PRN PO AGITATION 8/21/20 21:15 12/18/19 01:19 Olanzapine (ZyPREXA ZYDIS) 5 mg QHS PO 12/11/19 21:00 12/12/19 11:49 DC 12/11/19 22:22 Ondansetron HCl (Zofran Odt) 4 mg Q8H PRN PO NAUSEA 12/11/19 19:00 12/18/19 01:19 Polyethylene Glycol (Miralax) 1 pkt DAILY PRN PO CONSTIPATION 12/11/19 19:00 Sucralfate (Carafate Suspension) 1 gm BID PO 12/15/19 21:00 12/18/19 09:29 Sucralfate (Carafate) 1 gm BID PO 12/11/19 21:00 12/15/19 12:59 DC 12/15/19 08:46 Allergies Coded Allergies: Penicillins (Unverified Allergy, Unknown, 12/14/19) diethylene glycol (Unverified Allergy, Unknown, 12/14/19) ALSO CALLED CARBITOL divalproex sodium (Unverified Allergy, Unknown, Unverified reaction. It is SUSPECT, 12/14/19) fluphenazine (Unverified Allergy, Unknown, UNVERIFIED REACTION. IT IS SUSPECT, 12/14/19) lithium (Unverified Allergy, Unknown, UNVERIFIED REACTION. IT IS SUSPECT., 12/14/19) meperidine (Unverified Allergy, Unknown, 12/14/19) metoclopramide (Unverified Allergy, Unknown, 12/14/19) olanzapine (Unverified Allergy, Unknown, 12/14/19) PT CANNOT VERBALIZE ACTUAL REACTION TO MEDICATION, HAS TAKEN PREVIOUS DOSES ON UNIT WITHOUT INCIDENT ranitidine (Unverified Allergy, Unknown, 12/14/19) risperidone (Unverified Allergy, Unknown, Unverified reaction. It is SUSPECT., 12/14/19) sertraline (Unverified Allergy, Unknown, Unverified reaction. It is SUSPECT, 12/14/19) acetaminophen (Verified Adverse Reaction, Unknown, PT HX HEP B, HEP C, 12/11/19) haloperidol (Verified Adverse Reaction, Unknown, makes me go crazy, 12/11/19) uNVERIFIED REACTION. IT IS SUSPECT SANDI MORAN NP Dec 18, 2019 14:40
[2019-12-18] MEDS: ACETAMINOPHEN TAB 650MG DOSE (2X325MG) PO PRN (16:21)
[2019-12-18] MEDS: LIDOCAINE 5% (LIDODERM) PATCH TD PRN (16:23)
[2019-12-18 17:18] VITALS: BP 129/70
[2019-12-18] MEDS: CYCLOBENZAPRINE 5MG TABLET PO PRN (18:50)
[2019-12-18] MEDS: clonazePAM 1 MG TAB PO SCH (20:20)
[2019-12-18] MEDS: CARIPRAZINE 3MG CAPSULE (VRAYLAR) PO SCH (20:20)
[2019-12-18] MEDS: LORazepam 1 MG TAB PO PRN (21:37)
[2019-12-19] MEDS ORDERED: LORazepam 2 MG TAB PO ONE (05:15)
[2019-12-19] MEDS ORDERED: diphenhydrAMINE 50MG CAP PO ONE (05:15)
[2019-12-19] MEDS: CEPACOL LOZENGE PO PRN ×3 (05:50→20:43)
[2019-12-19] MEDS: ONDANSETRON 4 MG ORAL DISINTEGRATING TAB PO PRN ×2 (05:50→12:10)
[2019-12-19 06:43] VITALS: BP 139/95
--- NOTE | 2019-12-19 09:58 | MHIPNPDOC ---
[facility] Progress Note Progress Note DATE OF SERVICE: 12/19/19 HISTORY: Patient is a Female who was admitted to psychiatry on a 9.39 legal status. She was found to be Delusional and Bizarre and Manic. She has b een converted to 2 PC. She has refused medications that will stabilize her. We are pursuing Treatment Over Objection. VITAL SIGNS: See below. NEW TEST RESULTS: Patient has refused blood work and other tests until today. She was speaking to a slab stripper who was on the unit and stated that she wanted to have her blood drawn. The opportunity to have these pending labs were done because pt was finally agreeable today. CURRENT MEDICATIONS: See below. MENTAL STATUS EXAMINATION: Speech: Is rapid, pressured, with flight or ideas. Language skills are Good Thought processes including: disorganized and scattered Thought content: Moderate Paranoia about medications, but patient has a polysubstance abuse history. Abstract reasoning, and computation: fair Description of associations: none Description of abnormal or psychotic thoughts: None Judgment: Poor Insight: Poor Orientation: Alert and oriented to person, place and time but not situation - states she does not know why she was brought in, and denies that she is manic Recent and remote memory: Intact Attention span and concentration: Fair Language: Turkmen is primary language. Good skills Fund of knowledge: Average Mood: Labile, staff splitting Affect: hypervigilant stare most times DIAGNOSES: 1. Bipolar, Manic ASSESSMENT: Have encouraged patient to take her medications. She is now requesting Invega. I reinforced with the patient that she had stated that she is allergic to Risperdal. Patient states she has never had Invega and wants to start that. Patient has had the last few days in succession where she has refused Vraylar which would help stabilize her. Patient had refused Abilify as well. She refused Ability Maintena. MANAGEMENT PLAN: Treatment over Objection. Patient will be transferred to [facility] if she does not stabilize. TIME SPENT: 25 minutes. Vital Signs Vital Signs Date Time Temp Pulse Resp B/P (MAP) Pulse Ox O2 Delivery O2 Flow Rate FiO2 12/19/19 06:43 97.5 111 18 139/95 (110) 100 Room Air Current Medications Current Medications Medications (Trade) Dose Ordered Sig/Jackelyn Route PRN Reason Start Time Stop Time Status Last Admin Dose Admin Acetaminophen (Tylenol Tab) 650 mg Q6H PRN PO HEADACHE OR DISCOMFORT 12/11/19 19:00 12/18/19 16:21 Al Hydrox/Mg Hydrox/Simethicone (Mylanta) 30 ml Q4H PRN PO HEARTBURN/INDIGESTION 12/11/19 19:00 12/17/19 11:16 Albuterol Sulfate (Proventil, Ventolin Hfa) 2 puff Q6H PRN INH SHORTNESS OF BREATH 12/11/19 18:00 12/18/19 21:34 Aripiprazole (AbiLIFY) 5 mg QHS PO 12/11/19 21:00 12/11/19 18:00 DC Aripiprazole (AbiLIFY) 5 mg QHS PO 12/12/19 21:00 12/15/19 12:54 DC 12/13/19 21:21 Cariprazine (Vraylar) 3 mg QHS PO 12/15/19 21:00 12/15/19 20:00 Cetylpyridinium Chloride (Cepacol) 1 karoline Q6H PRN PO SORE THROAT 12/12/19 12:00 12/19/19 05:50 Clonazepam (KlonoPIN) 0.5 mg QAM PO 12/12/19 09:00 12/17/19 08:16 Clonazepam (KlonoPIN) 1 mg QHS PO 12/11/19 21:00 12/18/19 20:20 Cyclobenzaprine HCl (Flexeril) 5 mg BIDP PRN PO MUSCLE SPASMS 12/13/19 21:15 12/18/19 18:50 Docusate Sodium (Colace) 100 mg BID PRN PO CONSTIPATION 12/11/19 19:00 12/15/19 21:01 Home Med (Med Rec Complete!) ASDIRECTED XX 12/11/19 18:45 12/11/19 18:40 DC Lidocaine (Lidoderm Patch) 1 patch DAILY PRN TD LOWER BACK PAIN 12/12/19 09:00 12/18/19 16:23 Lorazepam (Ativan) 1 mg BIDP PRN PO ANXIETY/AGITATION 12/16/19 13:45 12/18/19 21:37 Magnesium Hydroxide (Milk Of Magnesia) 30 ml DAILYPRN PRN PO CONSTIPATION 12/11/19 19:00 12/11/19 21:45 Menthol/Methyl Salicylate (Bengay Cream) APPLY TO BILATERAL KNEES ... Q8H PRN TOP KNEE PAIN 12/11/19 19:00 12/18/19 20:22 Nicotine (Nicoderm Cq 21mg) 1 patch DAILY TD 12/12/19 09:00 12/18/19 09:55 Non-Formulary Medication ( See Comment Field Below ) REMOVE LIDODERM PATCH DAILY@21 XX 12/11/19 21:00 12/18/19 20:20 Olanzapine (ZyPREXA ZYDIS) 5 mg Q4HP PRN PO AGITATION 12/14/19 21:15 12/18/19 01:19 Olanzapine (ZyPREXA ZYDIS) 5 mg QHS PO 12/11/19 21:00 12/12/19 11:49 DC 12/11/19 22:22 Ondansetron HCl (Zofran Odt) 4 mg Q8H PRN PO NAUSEA 12/11/19 19:00 12/19/19 05:50 Polyethylene Glycol (Miralax) 1 pkt DAILY PRN PO CONSTIPATION 12/11/19 19:00 Sucralfate (Carafate Suspension) 1 gm BID PO 12/15/19 21:00 12/18/19 20:20 Sucralfate (Carafate) 1 gm BID PO 12/11/19 21:00 12/15/19 12:59 DC 12/15/19 08:46 Allergies Coded Allergies: Penicillins (Unverified Allergy, Unknown, 12/14/19) diethylene glycol (Unverified Allergy, Unknown, 12/14/19) ALSO CALLED CARBITOL divalproex sodium (Unverified Allergy, Unknown, Unverified reaction. It is SUSPECT, 12/14/19) fluphenazine (Unverified Allergy, Unknown, UNVERIFIED REACTION. IT IS SUSPECT, 12/14/19) lithium (Unverified Allergy, Unknown, UNVERIFIED REACTION. IT IS SUSPECT., 12/14/19) meperidine (Unverified Allergy, Unknown, 12/14/19) metoclopramide (Unverified Allergy, Unknown, 12/14/19) olanzapine (Unverified Allergy, Unknown, 12/14/19) PT CANNOT VERBALIZE ACTUAL REACTION TO MEDICATION, HAS TAKEN PREVIOUS DOSES ON UNIT WITHOUT INCIDENT ranitidine (Unverified Allergy, Unknown, 12/14/19) risperidone (Unverified Allergy, Unknown, Unverified reaction. It is SUSPECT., 12/14/19) sertraline (Unverified Allergy, Unknown, Unverified reaction. It is SUSPECT, 12/14/19) acetaminophen (Verified Adverse Reaction, Unknown, PT HX HEP B, HEP C, 12/11/19) haloperidol (Verified Adverse Reaction, Unknown, makes me go crazy, 12/11/19) uNVERIFIED REACTION. IT IS SUSPECT SANDI MORAN NP Dec 19, 2019 09:58
[2019-12-19] MEDS: clonazePAM 0.5 MG TAB PO SCH (10:32)
[2019-12-19] MEDS: SUCRALFATE SUSP 1GM/10ML UD PO SCH ×2 (10:32→20:43)
[2019-12-19] MEDS: NICOTINE 21MG/24HR 1 EA TRANSDERMAL TD SCH (10:32)
[2019-12-19] MEDS: LORazepam 1 MG TAB PO PRN (14:11)
[2019-12-19] MEDS: CYCLOBENZAPRINE 5MG TABLET PO PRN (15:01)
[2019-12-19] MEDS: ACETAMINOPHEN TAB 650MG DOSE (2X325MG) PO PRN ×2 (15:02→23:26)
[2019-12-19 15:06] LABS: HEMATOCRIT 36.7 % (36.0-47.0); HEMOGLOBIN 12.1 g/dl (12.0-15.5); MEAN CORPUSCULAR HEMOGLOBIN 30.2 pg (27.0-33.0); MEAN CORPUSCULAR VOLUME 91.5 fl (80.0-96.0); PLATELET COUNT, AUTOMATED 288 10^3/uL (150-450); RED BLOOD COUNT 4.01 10^6/uL (4.00-5.40)
[2019-12-19 15:41] LABS: ALBUMIN 3.7 GM/DL (3.2-5.2); ALT/SGPT 51 U/L (12-78); BILIRUBIN,TOTAL 0.4 MG/DL (0.2-1.0); BLOOD UREA NITROGEN 8 MG/DL (7-18); CALCIUM LEVEL 8.8 MG/DL (8.5-10.1); CARBON DIOXIDE LEVEL 28 MEQ/L (21-32); CHLORIDE LEVEL 106 MEQ/L (98-107); GLOMERULAR FILTRATION RATE > 60.0 (>58); GLUCOSE, FASTING 82 MG/DL (70-100); POTASSIUM SERUM 3.8 MEQ/L (3.5-5.1); SODIUM LEVEL 139 MEQ/L (136-145); THYROID STIMULATING HORMONE 0.651 uIU/ML (0.358-3.740); TOTAL PROTEIN 6.7 GM/DL (6.4-8.2)
[2019-12-19 16:13] VITALS: BP 138/85
[2019-12-19] MEDS: CARIPRAZINE 3MG CAPSULE (VRAYLAR) PO SCH ×2 (20:38→23:24)
[2019-12-19] MEDS: clonazePAM 1 MG TAB PO SCH (20:41)
[2019-12-19] MEDS: ALBUTEROL 90 MCG/ACT 8GM HFA INHALER INH PRN (20:43)
[2019-12-19] MEDS: ANALGESIC BALM CRM 120 GM TOP PRN (20:45)
[2019-12-19] MEDS: DOCUSATE SODIUM 100 MG CAP PO PRN (21:42)
[2019-12-20] MEDS: LORazepam 1 MG TAB PO PRN ×2 (02:01→14:47)
[2019-12-20 05:54] VITALS: BP 126/87
[2019-12-20] MEDS: CEPACOL LOZENGE PO PRN ×3 (05:58→19:23)
[2019-12-20] MEDS: ONDANSETRON 4 MG ORAL DISINTEGRATING TAB PO PRN ×2 (06:30→14:49)
[2019-12-20] MEDS: ALBUTEROL 90 MCG/ACT 8GM HFA INHALER INH PRN ×2 (08:18→17:12)
[2019-12-20] MEDS: NICOTINE 21MG/24HR 1 EA TRANSDERMAL TD SCH (08:19)
[2019-12-20] MEDS: SUCRALFATE SUSP 1GM/10ML UD PO SCH ×2 (08:19→20:07)
[2019-12-20] MEDS: clonazePAM 0.5 MG TAB PO SCH (08:20)
[2019-12-20] MEDS: ACETAMINOPHEN TAB 650MG DOSE (2X325MG) PO PRN ×2 (09:31→20:11)
[2019-12-20] MEDS: CYCLOBENZAPRINE 5MG TABLET PO PRN ×2 (09:31→20:12)
[2019-12-20] MEDS: LIDOCAINE 5% (LIDODERM) PATCH TD PRN (09:31)
--- NOTE | 2019-12-20 10:41 | MHIPNPDOC ---
[facility] Progress Note Progress Note DATE OF SERVICE: 12/20/19 HISTORY: Patient is a 49 year old Female admitted for exacerbation of Bipolar Symptoms, poor compliance of her medications. VITAL SIGNS: See below. NEW TEST RESULTS: see results CURRENT MEDICATIONS: See below. MENTAL STATUS EXAMINATION: Patient is a 49-year old female, who is currently compliant with her Mood Stabilizer as of only last night. She is in good behavioral control this mor lisa but still has rapid, pressured speech, milder flight of ideas than yesterday. Speech: Is Rapid Fire and tangential. Normal volume. Language skills are Good. Thought processes including: Continues to be disorganized but is improving. Scattered thinking is less scattered. She is more linear and has some goal orientation Thought content: No abnormal thought content although she presents with racing thoughts. Abstract reasoning, and computation: Fair Description of associations: Negative Description of abnormal or psychotic thoughts: rumination, flight of ideas Judgment: Fair to poor at times Insight: Fair to poor at times but improving Orientation: Alert and oriented x 3 Recent and remote memory: Intact Attention span and concentration: Fair Language: Good Fund of knowledge: Good Mood: Manic and Labile. Affect: Worried, Nervous DIAGNOSES: 1. Bipolar I Disorder, Current Episode, Manic ASSESSMENT: Patiient is not stable but is improving. She is less manic, less disorganized in the interview. RN reported that this morning patient took shower with her undergarments on. Staff reports that the police department called and states that patient is making numerous calls to them to request welfare check on her boyfriend. Boyfriend is upset and police would like this curbed. Staff will make phone restrictions on her call volume. he is somatic today, reporting that she has a headache from Vraylar. She presents today mildly distressed and appears to have bombardment of thoughts as evidenced in her rapid fire speech pattern, she appears to be motivated for medication compliance. Reports that her mother is aware that she is admitted to the hospital. MANAGEMENT PLAN: Patient is willing to take Invega and requested this again. Reminded patient that she had previously report that Risperdal is an allergy. Patient does not report what her allergic reaction is and states that she feels that Invega will be helpful. I discussed with the patient the medication, route, time and frequency. She verbalized understanding and states that she will maintain compliance. TIME SPENT: 45 minutes. Vital Signs Vital Signs Date Time Temp Pulse Resp B/P (MAP) Pulse Ox O2 Delivery O2 Flow Rate FiO2 12/20/19 05:54 97.2 104 18 126/87 (100) Room Air 12/19/19 16:13 99 Laboratory Data 24H Labs Laboratory Tests 2 12/19/19 14:13: Nucleated Red Blood Cells % (auto) 0.3H, Anion Gap 5L, Glomerular Filtration Rate > 60.0, Calcium Level 8.8, Total Bilirubin 0.4, Aspartate Amino Transf (AST/SGOT) 47H, Alanine Aminotransferase (ALT/SGPT) 51, Alkaline Phosphatase 66, Total Protein 6.7, Albumin 3.7, Albumin/Globulin Ratio 1.2, Thyroid Stimulating Hormone (TSH) 0.651 CBC/BMP Laboratory Tests 12/19/19 14:13 Current Medications Current Medications Medications (Trade) Dose Ordered Sig/Jackelyn Route PRN Reason Start Time Stop Time Status Last Admin Dose Admin Acetaminophen (Tylenol Tab) 650 mg Q6H PRN PO HEADACHE OR DISCOMFORT 12/11/19 19:00 12/20/19 09:31 Al Hydrox/Mg Hydrox/Simethicone (Mylanta) 30 ml Q4H PRN PO HEARTBURN/INDIGESTION 12/11/19 19:00 12/17/19 11:16 Albuterol Sulfate (Proventil, Ventolin Hfa) 2 puff Q6H PRN INH SHORTNESS OF BREATH 12/11/19 18:00 12/20/19 08:18 Aripiprazole (AbiLIFY) 5 mg QHS PO 12/11/19 21:00 12/11/19 18:00 DC Aripiprazole (AbiLIFY) 5 mg QHS PO 12/12/19 21:00 12/15/19 12:54 DC 12/13/19 21:21 Cariprazine (Vraylar) 3 mg QHS PO 12/15/19 21:00 12/19/19 23:24 Cetylpyridinium Chloride (Cepacol) 1 karoline Q6H PRN PO SORE THROAT 12/12/19 12:00 12/20/19 05:58 Clonazepam (KlonoPIN) 0.5 mg QAM PO 12/12/19 09:00 12/20/19 08:20 Clonazepam (KlonoPIN) 1 mg QHS PO 12/11/19 21:00 12/19/19 20:41 Cyclobenzaprine HCl (Flexeril) 5 mg BIDP PRN PO MUSCLE SPASMS 12/13/19 21:15 12/20/19 09:31 Docusate Sodium (Colace) 100 mg BID PRN PO CONSTIPATION 12/11/19 19:00 12/19/19 21:42 Home Med (Med Rec Complete!) ASDIRECTED XX 12/11/19 18:45 12/11/19 18:40 DC Lidocaine (Lidoderm Patch) 1 patch DAILY PRN TD LOWER BACK PAIN 12/12/19 09:00 12/20/19 09:31 Lorazepam (Ativan) 1 mg BIDP PRN PO ANXIETY/AGITATION 12/16/19 13:45 12/20/19 02:01 Magnesium Hydroxide (Milk Of Magnesia) 30 ml DAILYPRN PRN PO CONSTIPATION 12/11/19 19:00 12/11/19 21:45 Menthol/Methyl Salicylate (Bengay Cream) APPLY TO BILATERAL KNEES ... Q8H PRN TOP KNEE PAIN 12/11/19 19:00 12/19/19 20:45 Nicotine (Nicoderm Cq 21mg) 1 patch DAILY TD 12/12/19 09:00 12/20/19 08:19 Non-Formulary Medication ( See Comment Field Below ) REMOVE LIDODERM PATCH DAILY@21 XX 12/11/19 21:00 12/19/19 20:38 Olanzapine (ZyPREXA ZYDIS) 5 mg Q4HP PRN PO AGITATION 12/14/19 21:15 12/18/19 01:19 Olanzapine (ZyPREXA ZYDIS) 5 mg QHS PO 12/11/19 21:00 12/12/19 11:49 DC 12/11/19 22:22 Ondansetron HCl (Zofran Odt) 4 mg Q8H PRN PO NAUSEA 12/11/19 19:00 12/20/19 06:30 Polyethylene Glycol (Miralax) 1 pkt DAILY PRN PO CONSTIPATION 12/11/19 19:00 Risperidone (RisperDAL) 1 mg QHS PO 12/20/19 21:00 Sucralfate (Carafate Suspension) 1 gm BID PO 12/15/19 21:00 12/20/19 08:19 Sucralfate (Carafate) 1 gm BID PO 12/11/19 21:00 12/15/19 12:59 DC 12/15/19 08:46 Allergies Coded Allergies: Penicillins (Unverified Allergy, Unknown, 12/14/19) diethylene glycol (Unverified Allergy, Unknown, 12/14/19) ALSO CALLED CARBITOL divalproex sodium (Unverified Allergy, Unknown, Unverified reaction. It is SUSPECT, 12/14/19) fluphenazine (Unverified Allergy, Unknown, UNVERIFIED REACTION. IT IS SUSPECT, 12/14/19) lithium (Unverified Allergy, Unknown, UNVERIFIED REACTION. IT IS SUSPECT., 12/14/19) meperidine (Unverified Allergy, Unknown, 12/14/19) metoclopramide (Unverified Allergy, Unknown, 12/14/19) olanzapine (Unverified Allergy, Unknown, 12/14/19) PT CANNOT VERBALIZE ACTUAL REACTION TO MEDICATION, HAS TAKEN PREVIOUS DOSES ON UNIT WITHOUT INCIDENT ranitidine (Unverified Allergy, Unknown, 12/14/19) risperidone (Unverified Allergy, Unknown, Unverified reaction. It is SUSPECT., 12/14/19) sertraline (Unverified Allergy, Unknown, Unverified reaction. It is SUSPECT, 12/14/19) acetaminophen (Verified Adverse Reaction, Unknown, PT HX HEP B, HEP C, 12/11/19) haloperidol (Verified Adverse Reaction, Unknown, makes me go crazy, 12/11/19) uNVERIFIED REACTION. IT IS SUSPECT SANDI MORAN NP Dec 20, 2019 10:41
[2019-12-20] MEDS: MOM 30ML SUSPENSION UDC PO PRN (17:12)
[2019-12-20 17:23] VITALS: BP 129/81
[2019-12-20] MEDS: CARIPRAZINE 3MG CAPSULE (VRAYLAR) PO SCH (20:07)
[2019-12-20] MEDS: risperiDONE 1 MG TAB PO SCH (20:07)
[2019-12-20] MEDS: clonazePAM 1 MG TAB PO SCH (20:08)
[2019-12-21] MEDS: ANALGESIC BALM CRM 120 GM TOP PRN ×3 (00:31→20:20)
[2019-12-21] MEDS: CEPACOL LOZENGE PO PRN ×2 (02:48→08:22)
[2019-12-21 06:53] VITALS: BP 129/78
[2019-12-21] MEDS: ALBUTEROL 90 MCG/ACT 8GM HFA INHALER INH PRN ×2 (08:18→20:16)
[2019-12-21] MEDS: SUCRALFATE SUSP 1GM/10ML UD PO SCH ×2 (08:19→22:55)
[2019-12-21] MEDS: LORazepam 1 MG TAB PO PRN ×2 (08:20→20:17)
[2019-12-21] MEDS: ONDANSETRON 4 MG ORAL DISINTEGRATING TAB PO PRN ×2 (08:20→22:58)
[2019-12-21] MEDS: clonazePAM 0.5 MG TAB PO SCH ×2 (08:21→09:00)
[2019-12-21] MEDS: NICOTINE 21MG/24HR 1 EA TRANSDERMAL TD SCH (08:22)
[2019-12-21] MEDS: LIDOCAINE 5% (LIDODERM) PATCH TD PRN (08:23)
[2019-12-21] MEDS: CYCLOBENZAPRINE 5MG TABLET PO PRN ×2 (08:24→22:58)
--- NOTE | 2019-12-21 09:30 | MHIPNPDOC ---
[facility] Progress Note Progress Note DATE OF SERVICE: 12/21/19 HISTORY: Bridget is a 49 year old Female with a long psychiatric history. Admitted to [facility] [place] on 12/10/19 on a 9/41 or 9.45 by [facility]'s Department for Bizarre and Delusional Thoughts, she presented as Labile and Manic VITAL SIGNS: See below. NEW TEST RESULTS: See Results, mild abnormalities CURRENT MEDICATIONS: See below. MENTAL STATUS EXAMINATION: Patient is a 49-year old female, who is is very hyperverbal, rapid fire speech but is pleasant and cooperative in the interview. She is animated and at times euphoric Speech: Is rapid fire, hyperverbal, flight of ideas. Language skills are Good Thought processes including: Racing thoughts but linear and goal oriented Thought content: Reporting auditory hallucinations, not derogatory or command in nature Abstract reasoning, and computation: Fair. Description of associations: Denies Description of abnormal or psychotic thoughts: Negative Judgment: Fair to poor at times Insight: Fair to poor at times Orientation: Alert and oriented Recent and remote memory: Intact Attention span and concentration: Good Language: Good Fund of knowledge: Average Mood: Mildly labile, reactive. Affect: states euthymic, and she presents manic DIAGNOSES: 1. Bipolar I Disorder, Manic ASSESSMENT: Patient is more more agreeable to medications. She was agreeable to Vraylar and Risperidone, which she had previously reported as an allergy. She tolerated it well. She is agreeable to the Invega Sustenna IM injection tomorrow. She reports that she needs to be tested for Hepatitis A, B, C and wants to have Ativan as a PRN. It was reinforced with the patient that she will not have Ativan on her discharge medication list. She is also agreeable to titrate her off the Clonazepam. I will reduce the AM dose of Clonazepam to 0.25 mg. I will talk to the patient about Buspirone as a non-Benzodiazepine alternative to Clonazepam and Ativan. Patient reports that she has been on Clonazepam for 10+ years. MANAGEMENT PLAN: Moving forward, patient is currently in compliance with her medications and Treatment Over Objection will not be pursued as she is more cooperative and has insight into her illness. TIME SPENT: 30 minutes. Vital Signs Vital Signs Date Time Temp Pulse Resp B/P (MAP) Pulse Ox O2 Delivery O2 Flow Rate FiO2 12/21/19 06:53 99.1 102 14 129/78 (95) 98 Room Air Current Medications Current Medications Medications (Trade) Dose Ordered Sig/Jackelyn Route PRN Reason Start Time Stop Time Status Last Admin Dose Admin Acetaminophen (Tylenol Tab) 650 mg Q6H PRN PO HEADACHE OR DISCOMFORT 12/11/19 19:00 12/20/19 20:11 Al Hydrox/Mg Hydrox/Simethicone (Mylanta) 30 ml Q4H PRN PO HEARTBURN/INDIGESTION 12/11/19 19:00 12/17/19 11:16 Albuterol Sulfate (Proventil, Ventolin Hfa) 2 puff Q6H PRN INH SHORTNESS OF BREATH 12/11/19 18:00 12/21/19 08:18 Aripiprazole (AbiLIFY) 5 mg QHS PO 12/11/19 21:00 12/11/19 18:00 DC Aripiprazole (AbiLIFY) 5 mg QHS PO 12/12/19 21:00 12/15/19 12:54 DC 12/13/19 21:21 Cariprazine (Vraylar) 3 mg QHS PO 12/15/19 21:00 12/20/19 20:07 Cetylpyridinium Chloride (Cepacol) 1 karoline Q6H PRN PO SORE THROAT 12/12/19 12:00 12/21/19 08:22 Clonazepam (KlonoPIN) 0.5 mg QAM PO 12/12/19 09:00 12/21/19 09:07 DC 12/21/19 08:21 Clonazepam (KlonoPIN) 1 mg QHS PO 12/11/19 21:00 12/20/19 20:08 Cyclobenzaprine HCl (Flexeril) 5 mg BIDP PRN PO MUSCLE SPASMS 12/13/19 21:15 12/21/19 08:24 Docusate Sodium (Colace) 100 mg BID PRN PO CONSTIPATION 12/11/19 19:00 12/19/19 21:42 Home Med (Med Rec Complete!) ASDIRECTED XX 12/11/19 18:45 12/11/19 18:40 DC Lidocaine (Lidoderm Patch) 1 patch DAILY PRN TD LOWER BACK PAIN 12/12/19 09:00 12/21/19 08:23 Lorazepam (Ativan) 1 mg BIDP PRN PO ANXIETY/AGITATION 12/16/19 13:45 12/21/19 08:20 Magnesium Hydroxide (Milk Of Magnesia) 30 ml DAILYPRN PRN PO CONSTIPATION 12/11/19 19:00 12/20/19 17:12 Menthol/Methyl Salicylate (Bengay Cream) APPLY TO BILATERAL KNEES ... Q8H PRN TOP KNEE PAIN 12/11/19 19:00 12/21/19 08:23 Nicotine (Nicoderm Cq 21mg) 1 patch DAILY TD 12/12/19 09:00 12/21/19 08:22 Non-Formulary Medication ( See Comment Field Below ) REMOVE LIDODERM PATCH DAILY@21 XX 12/11/19 21:00 12/20/19 20:08 Olanzapine (ZyPREXA ZYDIS) 5 mg Q4HP PRN PO AGITATION 12/14/19 21:15 12/18/19 01:19 Olanzapine (ZyPREXA ZYDIS) 5 mg QHS PO 12/11/19 21:00 12/12/19 11:49 DC 12/11/19 22:22 Ondansetron HCl (Zofran Odt) 4 mg Q8H PRN PO NAUSEA 12/11/19 19:00 12/21/19 08:20 Paliperidone Palmitate (Invega Sustenna) 234 mg Q30D IM 12/22/19 09:00 Polyethylene Glycol (Miralax) 1 pkt DAILY PRN PO CONSTIPATION 12/11/19 19:00 Risperidone (RisperDAL) 1 mg QHS PO 12/20/19 21:00 12/20/19 20:07 Sucralfate (Carafate Suspension) 1 gm BID PO 12/15/19 21:00 12/21/19 08:19 Sucralfate (Carafate) 1 gm BID PO 12/11/19 21:00 12/15/19 12:59 DC 12/15/19 08:46 Allergies Coded Allergies: Penicillins (Unverified Allergy, Unknown, 12/14/19) diethylene glycol (Unverified Allergy, Unknown, 12/14/19) ALSO CALLED CARBITOL divalproex sodium (Unverified Allergy, Unknown, Unverified reaction. It is SUSPECT, 12/14/19) fluphenazine (Unverified Allergy, Unknown, UNVERIFIED REACTION. IT IS SUSPECT, 12/14/19) lithium (Unverified Allergy, Unknown, UNVERIFIED REACTION. IT IS SUSPECT., 12/14/19) meperidine (Unverified Allergy, Unknown, 12/14/19) metoclopramide (Unverified Allergy, Unknown, 12/14/19) olanzapine (Unverified Allergy, Unknown, 12/14/19) PT CANNOT VERBALIZE ACTUAL REACTION TO MEDICATION, HAS TAKEN PREVIOUS DOSES ON UNIT WITHOUT INCIDENT ranitidine (Unverified Allergy, Unknown, 12/14/19) risperidone (Unverified Allergy, Unknown, Unverified reaction. It is SUSPECT., 12/14/19) sertraline (Unverified Allergy, Unknown, Unverified reaction. It is SUSPECT, 12/14/19) acetaminophen (Verified Adverse Reaction, Unknown, PT HX HEP B, HEP C, 12/11/19) haloperidol (Verified Adverse Reaction, Unknown, makes me go crazy, 12/11/19) uNVERIFIED REACTION. IT IS SUSPECT SANDI MORAN NP Dec 21, 2019 09:30
[2019-12-21] MEDS: ACETAMINOPHEN TAB 650MG DOSE (2X325MG) PO PRN ×2 (12:50→20:18)
[2019-12-21 17:02] VITALS: BP 140/88
[2019-12-21] MEDS: MOM 30ML SUSPENSION UDC PO PRN (17:04)
[2019-12-21] MEDS: CARIPRAZINE 3MG CAPSULE (VRAYLAR) PO SCH (20:18)
[2019-12-21] MEDS: clonazePAM 1 MG TAB PO SCH (20:18)
[2019-12-21] MEDS: risperiDONE 1 MG TAB PO SCH (21:00)
[2019-12-22 06:00] VITALS: BP 149/83
[2019-12-22] MEDS: clonazePAM 0.5 MG TAB PO SCH (08:23)
[2019-12-22] MEDS: NICOTINE 21MG/24HR 1 EA TRANSDERMAL TD SCH (08:24)
[2019-12-22] MEDS: SUCRALFATE SUSP 1GM/10ML UD PO SCH ×2 (08:24→21:13)
[2019-12-22] MEDS: CEPACOL LOZENGE PO PRN ×2 (08:32→21:11)
[2019-12-22] MEDS ORDERED: PALIPERIDONE PALMITATE 234MG/1.5ML INJ (INVEGA)(FREE PSY INPT ONLY) IM SCH (09:00)
[2019-12-22] MEDS: ONDANSETRON 4 MG ORAL DISINTEGRATING TAB PO PRN (10:32)
[2019-12-22] MEDS: LORazepam 1 MG TAB PO PRN ×2 (13:40→20:16)
[2019-12-22 14:00] VITALS: BP 147/86
[2019-12-22] MEDS: ALBUTEROL 90 MCG/ACT 8GM HFA INHALER INH PRN ×2 (15:47→21:10)
[2019-12-22] MEDS: risperiDONE 1 MG TAB PO SCH (20:09)
[2019-12-22] MEDS: ANALGESIC BALM CRM 120 GM TOP PRN ×2 (20:15→22:51)
[2019-12-22] MEDS: clonazePAM 1 MG TAB PO SCH (20:16)
[2019-12-22] MEDS: LIDOCAINE 5% (LIDODERM) PATCH TD PRN (20:16)
[2019-12-22] MEDS: CARIPRAZINE 3MG CAPSULE (VRAYLAR) PO SCH (21:00)
[2019-12-22] MEDS: MIRALAX *UNIT DOSE* 17GM PACKET PO PRN (22:51)
[2019-12-22] MEDS: CYCLOBENZAPRINE 5MG TABLET PO PRN (22:56)
[2019-12-23] MEDS: ALBUTEROL 90 MCG/ACT 8GM HFA INHALER INH PRN ×3 (04:49→23:31)
[2019-12-23] MEDS: CEPACOL LOZENGE PO PRN ×3 (04:49→23:35)
[2019-12-23] MEDS: LORazepam 1 MG TAB PO PRN ×2 (04:49→14:46)
[2019-12-23] MEDS: ONDANSETRON 4 MG ORAL DISINTEGRATING TAB PO PRN ×2 (06:16→12:44)
[2019-12-23 06:46] VITALS: BP 138/87
[2019-12-23] MEDS: clonazePAM 0.5 MG TAB PO SCH (08:56)
[2019-12-23] MEDS: SUCRALFATE SUSP 1GM/10ML UD PO SCH ×2 (08:57→23:30)
[2019-12-23] MEDS: NICOTINE 21MG/24HR 1 EA TRANSDERMAL TD SCH (09:57)
[2019-12-23] MEDS: MIRALAX *UNIT DOSE* 17GM PACKET PO PRN (09:57)
[2019-12-23] MEDS: ACETAMINOPHEN TAB 650MG DOSE (2X325MG) PO PRN ×2 (10:00→23:34)
[2019-12-23] MEDS: CYCLOBENZAPRINE 5MG TABLET PO PRN (16:11)
[2019-12-23] MEDS: ANALGESIC BALM CRM 120 GM TOP PRN (16:11)
[2019-12-23 18:42] VITALS: BP 144/78
[2019-12-23] MEDS: risperiDONE 1 MG TAB PO SCH (21:00)
[2019-12-23] MEDS: CARIPRAZINE 3MG CAPSULE (VRAYLAR) PO SCH (21:00)
[2019-12-23] MEDS: clonazePAM 1 MG TAB PO SCH (23:31)
[2019-12-24] MEDS: MOM 30ML SUSPENSION UDC PO PRN (02:28)
[2019-12-24] MEDS: ONDANSETRON 4 MG ORAL DISINTEGRATING TAB PO PRN ×2 (05:24→14:29)
[2019-12-24] MEDS: CEPACOL LOZENGE PO PRN ×4 (05:26→23:31)
[2019-12-24] MEDS: MIRALAX *UNIT DOSE* 17GM PACKET PO PRN (07:53)
[2019-12-24] MEDS: SUCRALFATE SUSP 1GM/10ML UD PO SCH ×3 (08:51→23:31)
[2019-12-24] MEDS: ALBUTEROL 90 MCG/ACT 8GM HFA INHALER INH PRN ×2 (08:51→16:03)
[2019-12-24] MEDS: NICOTINE 21MG/24HR 1 EA TRANSDERMAL TD SCH (08:52)
[2019-12-24] MEDS: clonazePAM 0.5 MG TAB PO SCH (08:52)
[2019-12-24] MEDS: ANALGESIC BALM CRM 120 GM TOP PRN ×2 (08:55→23:32)
[2019-12-24] MEDS: CYCLOBENZAPRINE 5MG TABLET PO PRN (08:59)
[2019-12-24] MEDS: LIDOCAINE 5% (LIDODERM) PATCH TD PRN (09:00)
[2019-12-24] MEDS: ACETAMINOPHEN TAB 650MG DOSE (2X325MG) PO PRN ×2 (09:00→18:23)
--- NOTE | 2019-12-24 09:39 | MHIPNPDOC ---
[facility] Progress Note Progress Note DATE OF SERVICE: 12/24/19 HISTORY: Patient is a 50 year old female who was brought in for Manic Behaviors. VITAL SIGNS: See below. NEW TEST RESULTS: Elevated AST, Decreased Anion Gap and Elevated Nucleated RBC % CURRENT MEDICATIONS: See below. MENTAL STATUS EXAMINATION: Patient is a 49-year old female, who is manic and labile. Speech: Is rapid, garbled at times due rapid speech, normal tone and volume. Language skills are fair. Thought processes including: linear and organized, racing Thought content: observed hypomanic Abstract reasoning, and computation: fair. Description of associations: negative. Description of abnormal or psychotic thoughts: Reports no need for medications, states that Vraylar gives her migraines and Risperdal is making her suicidal. She has not voices these things to staff Judgment: Poor Insight: Poor Orientation: Alert and oriented Recent and remote memory: Intact. Attention span and concentration: Good. Language: Good. Fund of knowledge: Average Mood: Hypomanic Affect: Reactive DIAGNOSES: 1. Bipolar I, Manic ASSESSMENT: She continues to have lability and manic behaviors on the unit. Refusing Mood Stabilizer (Vraylar) and Risperdal was started prior to Invega Sustenna IM on Tuesday. She demonstrates poor boundaries, giving other patient's counseling on medications that they need to be on. When we discussed her refusal to take the medications that will stabilize her she states, she will not take any of the medications and that I should move forward with treatment over objection MANAGEMENT PLAN: I will discuss with patient Haldol as a treatment plan which is the medication she had on her last admission TIME SPENT: 25 minutes. Vital Signs Vital Signs Date Time Temp Pulse Resp B/P (MAP) Pulse Ox O2 Delivery O2 Flow Rate FiO2 12/23/19 18:42 98.3 115 14 144/78 (100) 93 Room Air Current Medications Current Medications Medications (Trade) Dose Ordered Sig/Jackelyn Route PRN Reason Start Time Stop Time Status Last Admin Dose Admin Acetaminophen (Tylenol Tab) 650 mg Q6H PRN PO HEADACHE OR DISCOMFORT 12/11/19 19:00 12/24/19 09:00 Al Hydrox/Mg Hydrox/Simethicone (Mylanta) 30 ml Q4H PRN PO HEARTBURN/INDIGESTION 12/11/19 19:00 12/17/19 11:16 Albuterol Sulfate (Proventil, Ventolin Hfa) 2 puff Q6H PRN INH SHORTNESS OF BREATH 12/11/19 18:00 12/24/19 08:51 Aripiprazole (AbiLIFY) 5 mg QHS PO 12/11/19 21:00 12/11/19 18:00 DC Aripiprazole (AbiLIFY) 5 mg QHS PO 12/12/19 21:00 12/15/19 12:54 DC 12/13/19 21:21 Cariprazine (Vraylar) 3 mg QHS PO 12/15/19 21:00 12/21/19 20:18 Cetylpyridinium Chloride (Cepacol) 1 karoline Q6H PRN PO SORE THROAT 12/12/19 12:00 12/24/19 09:02 Clonazepam (KlonoPIN) 0.25 mg QAM PO 12/21/19 09:00 12/24/19 08:52 Clonazepam (KlonoPIN) 0.5 mg QAM PO 12/12/19 09:00 12/21/19 09:07 DC 12/21/19 08:21 Clonazepam (KlonoPIN) 1 mg QHS PO 12/11/19 21:00 12/23/19 23:31 Cyclobenzaprine HCl (Flexeril) 5 mg BIDP PRN PO MUSCLE SPASMS 12/13/19 21:15 12/24/19 08:59 Docusate Sodium (Colace) 100 mg BID PRN PO CONSTIPATION 12/11/19 19:00 12/19/19 21:42 Home Med (Med Rec Complete!) ASDIRECTED XX 12/11/19 18:45 12/11/19 18:40 DC Lidocaine (Lidoderm Patch) 1 patch DAILY PRN TD LOWER BACK PAIN 12/12/19 09:00 12/24/19 09:00 Lorazepam (Ativan) 1 mg BIDP PRN PO ANXIETY/AGITATION 12/16/19 13:45 12/23/19 13:44 DC 12/23/19 04:49 Lorazepam (Ativan) 1 mg BIDP PRN PO ANXIETY/AGITATION 12/23/19 14:15 12/23/19 14:46 Magnesium Hydroxide (Milk Of Magnesia) 30 ml DAILYPRN PRN PO CONSTIPATION 12/11/19 19:00 12/24/19 02:28 Menthol/Methyl Salicylate (Bengay Cream) APPLY TO BILATERAL KNEES ... Q8H PRN TOP KNEE PAIN 12/11/19 19:00 12/24/19 08:55 Nicotine (Nicoderm Cq 21mg) 1 patch DAILY TD 12/12/19 09:00 12/24/19 08:52 Non-Formulary Medication ( See Comment Field Below ) REMOVE LIDODERM PATCH DAILY@21 XX 12/11/19 21:00 12/21/19 17:03 Olanzapine (ZyPREXA ZYDIS) 5 mg Q4HP PRN PO AGITATION 12/14/19 21:15 12/18/19 01:19 Olanzapine (ZyPREXA ZYDIS) 5 mg QHS PO 12/11/19 21:00 12/12/19 11:49 DC 12/11/19 22:22 Ondansetron HCl (Zofran Odt) 4 mg Q8H PRN PO NAUSEA 12/11/19 19:00 12/24/19 05:24 Paliperidone Palmitate (Invega Sustenna) 234 mg Q30D IM 12/22/19 09:00 12/22/19 08:23 Polyethylene Glycol (Miralax) 1 pkt DAILY PRN PO CONSTIPATION 12/11/19 19:00 12/24/19 07:53 Risperidone (RisperDAL) 1 mg QHS PO 12/20/19 21:00 12/20/19 20:07 Sucralfate (Carafate Suspension) 1 gm BID PO 12/15/19 21:00 12/24/19 08:51 Sucralfate (Carafate) 1 gm BID PO 12/11/19 21:00 12/15/19 12:59 DC 12/15/19 08:46 Allergies Coded Allergies: Penicillins (Unverified Allergy, Unknown, 12/14/19) diethylene glycol (Unverified Allergy, Unknown, 12/14/19) ALSO CALLED CARBITOL divalproex sodium (Unverified Allergy, Unknown, Unverified reaction. It is SUSPECT, 12/14/19) fluphenazine (Unverified Allergy, Unknown, UNVERIFIED REACTION. IT IS SUSPECT, 12/14/19) lithium (Unverified Allergy, Unknown, UNVERIFIED REACTION. IT IS SUSPECT., 12/14/19) meperidine (Unverified Allergy, Unknown, 12/14/19) metoclopramide (Unverified Allergy, Unknown, 12/14/19) olanzapine (Unverified Allergy, Unknown, 12/14/19) PT CANNOT VERBALIZE ACTUAL REACTION TO MEDICATION, HAS TAKEN PREVIOUS DOSES ON UNIT WITHOUT INCIDENT ranitidine (Unverified Allergy, Unknown, 12/14/19) risperidone (Unverified Allergy, Unknown, Unverified reaction. It is SUSPECT., 12/14/19) sertraline (Unverified Allergy, Unknown, Unverified reaction. It is ROCK SPECT, 12/14/19) acetaminophen (Verified Adverse Reaction, Unknown, PT HX HEP B, HEP C, 12/11/19) haloperidol (Verified Adverse Reaction, Unknown, makes me go crazy, 12/11/19) uNVERIFIED REACTION. IT IS SUSPECT SANDI MORAN NP Dec 24, 2019 09:39
[2019-12-24] MEDS: LORazepam 1 MG TAB PO PRN (11:20)
[2019-12-24 17:59] VITALS: BP 116/81
[2019-12-24] MEDS: clonazePAM 1 MG TAB PO SCH (20:18)
[2019-12-24] MEDS: risperiDONE 1 MG TAB PO SCH (21:00)
[2019-12-24] MEDS: CARIPRAZINE 3MG CAPSULE (VRAYLAR) PO SCH (21:00)
[2019-12-25] MEDS: CYCLOBENZAPRINE 5MG TABLET PO PRN ×2 (00:39→15:04)
[2019-12-25] MEDS: LORazepam 1 MG TAB PO PRN ×2 (00:39→23:11)
[2019-12-25] MEDS: CEPACOL LOZENGE PO PRN ×2 (06:01→15:04)
[2019-12-25] MEDS: ACETAMINOPHEN TAB 650MG DOSE (2X325MG) PO PRN ×2 (06:01→15:04)
[2019-12-25 06:32] VITALS: BP 134/81
[2019-12-25] MEDS: OLANZapine ORAL DISINTEGRATING TAB 5MG PO PRN ×2 (08:27→23:12)
[2019-12-25] MEDS: SUCRALFATE SUSP 1GM/10ML UD PO SCH ×2 (08:27→20:06)
[2019-12-25] MEDS: clonazePAM 0.5 MG TAB PO SCH ×2 (08:27→20:06)
[2019-12-25] MEDS: ALBUTEROL 90 MCG/ACT 8GM HFA INHALER INH PRN ×3 (08:28→21:38)
[2019-12-25] MEDS: ONDANSETRON 4 MG ORAL DISINTEGRATING TAB PO PRN ×2 (08:28→17:31)
[2019-12-25] MEDS: NICOTINE 21MG/24HR 1 EA TRANSDERMAL TD SCH (08:28)
[2019-12-25] MEDS: LIDOCAINE 5% (LIDODERM) PATCH TD PRN (08:28)
[2019-12-25] MEDS: ANALGESIC BALM CRM 120 GM TOP PRN ×2 (08:29→16:49)
[2019-12-25] MEDS: haloperidoL 5 MG TAB PO SCH ×3 (09:00→23:11)
--- NOTE | 2019-12-25 09:29 | MHIPNPDOC ---
[facility] Progress Note Progress Note DATE OF SERVICE: 12/25/19 HISTORY: Patient is a 49 year old Female with a long history of psychiatric admissions stemming from exacerbation of Bipolar symptoms. She is here on a 2 PC and has not stabilized on her medications as she frequently reports that all antipsychotic medications she is allergic to. In review of her medication in her last admission, patient had taken Haldol and subsequently Haldol Decanoate which stabilized her. Patient has refused Abilify, Zyprexa, and took only 2 doses of Vraylar. She requested Invega but refuses to continue the overlap of the Risperdal. At this time she is not stable and she remains labile and manic. She is restless, agitated and irritable most days. VITAL SIGNS: See below. NEW TEST RESULTS: See results CURRENT MEDICATIONS: See below. MENTAL STATUS EXAMINATION: Patient is a 49 -year old female, who is not stable, continues to be manic. Her grooming and hygiene is fair, She is uncooperative in the interview. Eye contact is hypervigilant during interview. Speech: Is rapid, pressured. Language skills are good. Thought processes including: linear and goal oriented. Thought content: racing thoughts, flight of ideas Abstract reasoning, and computation: fair. Description of associations: None. Description of abnormal or psychotic thoughts: Denies homicidal ideation, reports that her medications are causing her to have suicidal thoughts. She has not voiced suicidal thoughts outside of the conversation of what medications will help her. Judgment: poor Insight: poor Orientation: alert and oriented Recent and remote memory: Intact Attention span and concentration: Fair Language: good Fund of knowledge: congruent with her education Mood: Hypomanic, irritable Affect: Labile, dramatic at times, irritable. hypomanic. DIAGNOSES: 1. Bipolar I Disorder 2. Tobacco Use Disorder ASSESSMENT: Patient continues to be labile, irritable and hypomanic. She has refused medications that will stabilize. Patient was stabilized on Haldol, I will switch her to Haldol in hopes that this will stabilize her. If she refuses medications we will move forward with treatment over objection. Patient demonstrates severe impairment in insight and judgement which can lead to patient making unsafe decisions. She is non-compliant with treatment plan. She demonstrates poor symptom control so tenuous that if she were to be discharged her rehospitalization is a high probability. MANAGEMENT PLAN: Haldol 5 mg twice daily ordered. Haldol Decanoate will be ordered later this week. These medications are listed as an allergy per the patient. She has not had an allergic reaction to Haldol. She received Haldol on her last admission, as well as, she has received it on this admission. Patient did not have an allergic reaction to this medication. TIME SPENT: 30 minutes. Vital Signs Vital Signs Date Time Temp Pulse Resp B/P (MAP) Pulse Ox O2 Delivery O2 Flow Rate FiO2 12/25/19 06:32 97.1 118 20 134/81 (98) 12/23/19 18:42 93 Room Air Current Medications Current Medications Medications (Trade) Dose Ordered Sig/Jackelyn Route PRN Reason Start Time Stop Time Status Last Admin Dose Admin Acetaminophen (Tylenol Tab) 650 mg Q6H PRN PO HEADACHE OR DISCOMFORT 12/11/19 19:00 12/25/19 06:01 Al Hydrox/Mg Hydrox/Simethicone (Mylanta) 30 ml Q4H PRN PO HEARTBURN/INDIGESTION 12/11/19 19:00 12/17/19 11:16 Albuterol Sulfate (Proventil, Ventolin Hfa) 2 puff Q6H PRN INH SHORTNESS OF BREATH 12/11/19 18:00 12/25/19 08:28 Aripiprazole (AbiLIFY) 5 mg QHS PO 12/11/19 21:00 12/11/19 18:00 DC Aripiprazole (AbiLIFY) 5 mg QHS PO 12/12/19 21:00 12/15/19 12:54 DC 12/13/19 21:21 Cariprazine (Vraylar) 3 mg QHS PO 12/15/19 21:00 12/21/19 20:18 Cetylpyridinium Chloride (Cepacol) 1 karoline Q6H PRN PO SORE THROAT 12/12/19 12:00 12/25/19 06:01 Clonazepam (KlonoPIN) 0.25 mg QAM PO 12/21/19 09:00 12/25/19 08:27 Clonazepam (KlonoPIN) 0.5 mg QAM PO 12/12/19 09:00 12/21/19 09:07 DC 12/21/19 08:21 Clonazepam (KlonoPIN) 1 mg QHS PO 12/11/19 21:00 12/24/19 20:18 Cyclobenzaprine HCl (Flexeril) 5 mg BIDP PRN PO MUSCLE SPASMS 12/13/19 21:15 12/25/19 00:39 Docusate Sodium (Colace) 100 mg BID PRN PO CONSTIPATION 12/11/19 19:00 12/19/19 21:42 Home Med (Med Rec Complete!) ASDIRECTED XX 12/11/19 18:45 12/11/19 18:40 DC Lidocaine (Lidoderm Patch) 1 patch DAILY PRN TD LOWER BACK PAIN 12/12/19 09:00 12/25/19 08:28 Lorazepam (Ativan) 1 mg BIDP PRN PO ANXIETY/AGITATION 12/16/19 13:45 12/23/19 13:44 DC 12/23/19 04:49 Lorazepam (Ativan) 1 mg BIDP PRN PO ANXIETY/AGITATION 12/23/19 14:15 12/25/19 00:39 Magnesium Hydroxide (Milk Of Magnesia) 30 ml DAILYPRN PRN PO CONSTIPATION 12/11/19 19:00 12/24/19 02:28 Menthol/Methyl Salicylate (Bengay Cream) APPLY TO BILATERAL KNEES ... Q8H PRN TOP KNEE PAIN 12/11/19 19:00 12/25/19 08:29 Nicotine (Nicoderm Cq 21mg) 1 patch DAILY TD 12/12/19 09:00 12/25/19 08:28 Non-Formulary Medication ( See Comment Field Below ) REMOVE LIDODERM PATCH DAILY@21 XX 12/11/19 21:00 12/24/19 21:00 Olanzapine (ZyPREXA ZYDIS) 5 mg Q4HP PRN PO AGITATION 12/14/19 21:15 12/25/19 08:27 Olanzapine (ZyPREXA ZYDIS) 5 mg QHS PO 12/11/19 21:00 12/12/19 11:49 DC 12/11/19 22:22 Ondansetron HCl (Zofran Odt) 4 mg Q8H PRN PO NAUSEA 12/11/19 19:00 12/25/19 08:28 Paliperidone Palmitate (Invega Sustenna) 234 mg Q30D IM 12/22/19 09:00 12/22/19 08:23 Polyethylene Glycol (Miralax) 1 pkt DAILY PRN PO CONSTIPATION 12/11/19 19:00 12/24/19 07:53 Risperidone (RisperDAL) 1 mg QHS PO 12/20/19 21:00 12/20/19 20:07 Sucralfate (Carafate Suspension) 1 gm BID PO 12/15/19 21:00 12/25/19 08:27 Sucralfate (Carafate) 1 gm BID PO 12/11/19 21:00 12/15/19 12:59 DC 12/15/19 08:46 Allergies Coded Allergies: Penicillins (Unverified Allergy, Unknown, 12/14/19) diethylene glycol (Unverified Allergy, Unknown, 12/14/19) ALSO CALLED CARBITOL divalproex sodium (Unverified Allergy, Unknown, Unverified reaction. It is SUSPECT, 12/14/19) fluphenazine (Unverified Allergy, Unknown, UNVERIFIED REACTION. IT IS SUSPECT, 12/14/19) lithium (Unverified Allergy, Unknown, UNVERIFIED REACTION. IT IS SUSPECT., 12/14/19) meperidine (Unverified Allergy, Unknown, 12/14/19) metoclopramide (Unverified Allergy, Unknown, 12/14/19) olanzapine (Unverified Allergy, Unknown, 12/14/19) PT CANNOT VERBALIZE ACTUAL REACTION TO MEDICATION, HAS TAKEN PREVIOUS DOSES ON UNIT WITHOUT INCIDENT ranitidine (Unverified Allergy, Unknown, 12/14/19) risperidone (Unverified Allergy, Unknown, Unverified reaction. It is SUSPECT., 12/14/19) sertraline (Unverified Allergy, Unknown, Unverified reaction. It is S USPECT, 12/14/19) acetaminophen (Verified Adverse Reaction, Unknown, PT HX HEP B, HEP C, 12/11/19) haloperidol (Verified Adverse Reaction, Unknown, makes me go crazy, 12/11/19) uNVERIFIED REACTION. IT IS SUSPECT SANDI MORAN NP Dec 25, 2019 09:29
[2019-12-25] MEDS ORDERED: LORazepam 2 MG TAB PO STA (11:20)
[2019-12-25] MEDS: MAALOX 30 ML SUSP *UDC PO PRN (15:04)
[2019-12-25 17:58] VITALS: BP 140/83
[2019-12-25] MEDS: MIRALAX *UNIT DOSE* 17GM PACKET PO PRN (18:34)
[2019-12-25] MEDS: PILL CUTTER 1 EACH XX PRN (20:08)
[2019-12-26] MEDS: ANALGESIC BALM CRM 120 GM TOP PRN ×3 (01:07→16:57)
[2019-12-26] MEDS: ONDANSETRON 4 MG ORAL DISINTEGRATING TAB PO PRN ×2 (02:10→20:40)
[2019-12-26] MEDS: CEPACOL LOZENGE PO PRN ×2 (05:44→15:29)
[2019-12-26 07:06] VITALS: BP 142/88
[2019-12-26] MEDS: clonazePAM 0.5 MG TAB PO SCH ×2 (08:26→20:40)
[2019-12-26] MEDS: LIDOCAINE 5% (LIDODERM) PATCH TD PRN (08:26)
[2019-12-26] MEDS: SUCRALFATE SUSP 1GM/10ML UD PO SCH ×2 (08:26→20:40)
[2019-12-26] MEDS: ACETAMINOPHEN TAB 650MG DOSE (2X325MG) PO PRN ×3 (08:26→21:58)
[2019-12-26] MEDS: NICOTINE 21MG/24HR 1 EA TRANSDERMAL TD SCH (08:26)
[2019-12-26] MEDS: ALBUTEROL 90 MCG/ACT 8GM HFA INHALER INH PRN ×2 (08:26→21:58)
[2019-12-26] MEDS: OLANZapine ORAL DISINTEGRATING TAB 5MG PO PRN (08:27)
[2019-12-26] MEDS: haloperidoL 5 MG TAB PO SCH ×2 (08:27→21:00)
[2019-12-26] MEDS: CYCLOBENZAPRINE 5MG TABLET PO PRN (08:27)
[2019-12-26] MEDS: MIRALAX *UNIT DOSE* 17GM PACKET PO PRN (08:46)
[2019-12-26] MEDS ORDERED: LORazepam 2 MG TAB PO ONE (09:00)
--- NOTE | 2019-12-26 09:59 | MHIPNPDOC ---
[facility] Progress Note Progress Note DATE OF SERVICE: 12/26/19 HISTORY: Patient is a 49 year old Single, Disabled Female with a long psychiatric history of Bipolar Symptoms. She presented to [facility] on a 9.41 due to Bizarre and delusional Behavior. VITAL SIGNS: See below. NEW TEST RESULTS: . CURRENT MEDICATIONS: See below. MENTAL STATUS EXAMINATION: Patient is a 49-year old female, who is manic and labile. Speech: Is rapid fire to the point that at times she is slurring her words. Language skills are Good. Thought processes including: Racing, mildly disorganized at times Thought content: Racing, Ruminative, Staff splitting Abstract reasoning, and computation: Fair. Description of associations: States she hears voices, "spiritual voices" Description of abnormal or psychotic thoughts: Negative Judgment: Extremely poor Insight: Extremely poor Orientation: Alert and oriented to person, place and time Recent and remote memory: Intact Attention span and concentration: limited Language: fair Fund of knowledge: Average Mood: Manic. Affect: Labile, Congruent DIAGNOSES: 1. Bipolar 1 Disorder, Manic ASSESSMENT: Patient is a 49 year old Female who is Day 17 of her admission. Patient is manic and labile today. She present with Bizarre Appearance, wearing her hair in several small braid and had taken a purple marker to her blonde hair to color it. She is mildly to moderately restless in the interview. Prior to this she was very hostile and agitated towards another peer. She was given Ativan 2 mg to help with her agitation with fair effects during the interview. Patient states that she is compliant with the Haldol that has been ordered. She states that it is her goal to be discharged, I reinforced that she needs to be stable and to do so would require her to be more compliant with medications and take them consistently. She denies depression, suicidal/homicidal ideation. Her Eye contact is fleeting. Speech is rapid-fire and pressured and at times nonsensical. She is labiel and manic, thought process is tangential, racing, flight of ideas with some rumination. She is alert and oriented but has poor insight and judgement. Patient is not stable for discharge and will remain on the unit until she can be discharged to the community, without risk of readmission. At this time She is impulsive, agitated and at times unable to follow direction. Her symptoms are so tenuous that immediate hospitalization is likely if she were discharged. She demonstrates impairment in judgement and insight that will lead to uinsafe decision related to her daily living. MANAGEMENT PLAN: Continue with Treatment Plan, stabilize her with Haldol oral, she may need Haldol Decanoate later. Patient recently had Invega Sustenna and is not able to take another long-activing injectable at this time. TIME SPENT: 20 minutes. Vital Signs Vital Signs Date Time Temp Pulse Resp B/P (MAP) Pulse Ox O2 Delivery O2 Flow Rate FiO2 12/26/19 07:06 96.7 97 18 142/88 (106) 12/23/19 18:42 93 Room Air Current Medications Current Medications Medications (Trade) Dose Ordered Sig/Jackelyn Route PRN Reason Start Time Stop Time Status Last Admin Dose Admin Acetaminophen (Tylenol Tab) 650 mg Q6H PRN PO HEADACHE OR DISCOMFORT 12/11/19 19:00 12/26/19 08:26 Al Hydrox/Mg Hydrox/Simethicone (Mylanta) 30 ml Q4H PRN PO HEARTBURN/INDIGESTION 12/11/19 19:00 12/25/19 15:04 Albuterol Sulfate (Proventil, Ventolin Hfa) 2 puff Q6H PRN INH SHORTNESS OF BREATH 12/11/19 18:00 12/26/19 08:26 Aripiprazole (AbiLIFY) 5 mg QHS PO 12/11/19 21:00 12/11/19 18:00 DC Aripiprazole (AbiLIFY) 5 mg QHS PO 12/12/19 21:00 12/15/19 12:54 DC 12/13/19 21:21 Cariprazine (Vraylar) 3 mg QHS PO 12/15/19 21:00 12/25/19 09:11 DC 12/21/19 20:18 Cetylpyridinium Chloride (Cepacol) 1 karoline Q6H PRN PO SORE THROAT 12/12/19 12:00 12/26/19 05:44 Clonazepam (KlonoPIN) 0.25 mg QAM PO 12/21/19 09:00 12/26/19 08:26 Clonazepam (KlonoPIN) 0.5 mg QAM PO 12/12/19 09:00 12/21/19 09:07 DC 12/21/19 08:21 Clonazepam (KlonoPIN) 0.75 mg QHS PO 12/25/19 21:00 12/25/19 20:06 Clonazepam (KlonoPIN) 1 mg QHS PO 12/11/19 21:00 12/25/19 09:11 DC 12/24/19 20:18 Cyclobenzaprine HCl (Flexeril) 5 mg BIDP PRN PO MUSCLE SPASMS 12/13/19 21:15 12/26/19 08:27 Docusate Sodium (Colace) 100 mg BID PRN PO CONSTIPATION 12/11/19 19:00 12/19/19 21:42 Haloperidol (Haldol) 5 mg BID PO 12/25/19 09:00 12/26/19 08:27 Home Med (Med Rec Complete!) ASDIRECTED XX 12/11/19 18:45 12/11/19 18:40 DC Lidocaine (Lidoderm Patch) 1 patch DAILY PRN TD LOWER BACK PAIN 12/12/19 09:00 12/26/19 08:26 Lorazepam (Ativan) 1 mg BIDP PRN PO ANXIETY/AGITATION 12/16/19 13:45 12/23/19 13:44 DC 12/23/19 04:49 Lorazepam (Ativan) 1 mg BIDP PRN PO ANXIETY/AGITATION 12/23/19 14:15 12/25/19 23:11 Lorazepam (Ativan) 2 mg STAT STAT PO 12/25/19 11:20 12/25/19 11:22 DC 12/25/19 11:25 Magnesium Hydroxide (Milk Of Magnesia) 30 ml DAILYPRN PRN PO CONSTIPATION 12/11/19 19:00 12/24/19 02:28 Menthol/Methyl Salicylate (Bengay Cream) APPLY TO BILATERAL KNEES ... Q8H PRN TOP KNEE PAIN 12/11/19 19:00 12/26/19 08:27 Nicotine (Nicoderm Cq 21mg) 1 patch DAILY TD 12/12/19 09:00 12/26/19 08:26 Non-Formulary Medication ( See Comment Field Below ) REMOVE LIDODERM PATCH DAILY@21 XX 12/11/19 21:00 12/25/19 20:10 Olanzapine (ZyPREXA ZYDIS) 5 mg Q4HP PRN PO AGITATION 12/14/19 21:15 12/26/19 08:27 Olanzapine (ZyPREXA ZYDIS) 5 mg QHS PO 12/11/19 21:00 12/12/19 11:49 DC 12/11/19 22:22 Ondansetron HCl (Zofran Odt) 4 mg Q8H PRN PO NAUSEA 12/11/19 19:00 12/26/19 02:10 Paliperidone Palmitate (Invega Sustenna) 234 mg Q30D IM 12/22/19 09:00 12/25/19 09:11 DC 12/22/19 08:23 Polyethylene Glycol (Miralax) 1 pkt DAILY PRN PO CONSTIPATION 12/11/19 19:00 12/26/19 08:46 Risperidone (RisperDAL) 1 mg QHS PO 12/20/19 21:00 12/25/19 09:11 DC 12/20/19 20:07 Sucralfate (Carafate Suspension) 1 gm BID PO 12/15/19 21:00 12/26/19 08:26 Sucralfate (Carafate) 1 gm BID PO 12/11/19 21:00 12/15/19 12:59 DC 12/15/19 08:46 Allergies Coded Allergies: Penicillins (Unverified Allergy, Unknown, 12/14/19) diethylene glycol (Unverified Allergy, Unknown, 12/14/19) ALSO CALLED CARBITOL divalproex sodium (Unverified Allergy, Unknown, Unverified reaction. It is SUSPECT, 12/14/19) fluphenazine (Unverified Allergy, Unknown, UNVERIFIED REACTION. IT IS SUSPECT, 12/14/19) lithium (Unverified Allergy, Unknown, UNVERIFIED REACTION. IT IS SUSPECT., 12/14/19) meperidine (Unverified Allergy, Unknown, 12/14/19) metoclopramide (Unverified Allergy, Unknown, 12/14/19) olanzapine (Unverified Allergy, Unknown, 12/14/19) PT CANNOT VERBALIZE ACTUAL REACTION TO MEDICATION, HAS TAKEN PREVIOUS DOSES ON UNIT WITHOUT INCIDENT ranitidine (Unverified Allergy, Unknown, 12/14/19) risperidone (Unverified Allergy, Unknown, Unverified reaction. It is SUSPECT., 12/14/19) sertraline (Unverified Allergy, Unknown, Unverified reaction. It is SUSPECT, 12/14/19) acetaminophen (Verified Adverse Reaction, Unknown, PT HX HEP B, HEP C, 12/11/19) haloperidol (Verified Adverse Reaction, Unknown, makes me go crazy, 12/11/19) uNVERIFIED REACTION. IT IS SUSPECT SANDI MORAN NP Dec 26, 2019 09:59
[2019-12-26 18:02] VITALS: BP 142/76
[2019-12-27] MEDS: CYCLOBENZAPRINE 5MG TABLET PO PRN ×2 (00:38→18:30)
[2019-12-27] MEDS: LORazepam 1 MG TAB PO PRN ×3 (02:20→23:15)
[2019-12-27] MEDS: CEPACOL LOZENGE PO PRN ×3 (02:20→21:18)
[2019-12-27] MEDS: ALBUTEROL 90 MCG/ACT 8GM HFA INHALER INH PRN ×2 (06:21→15:48)
[2019-12-27 06:45] VITALS: BP 133/76
[2019-12-27] MEDS: clonazePAM 0.5 MG TAB PO SCH ×2 (08:12→20:12)
[2019-12-27] MEDS: SUCRALFATE SUSP 1GM/10ML UD PO SCH ×2 (08:12→20:10)
[2019-12-27] MEDS: NICOTINE 21MG/24HR 1 EA TRANSDERMAL TD SCH (08:13)
[2019-12-27] MEDS: LIDOCAINE 5% (LIDODERM) PATCH TD PRN (08:14)
[2019-12-27] MEDS: ONDANSETRON 4 MG ORAL DISINTEGRATING TAB PO PRN ×2 (08:32→17:33)
[2019-12-27] MEDS: haloperidoL 5 MG TAB PO SCH ×2 (08:34→20:14)
[2019-12-27] MEDS: MIRALAX *UNIT DOSE* 17GM PACKET PO PRN (09:11)
--- NOTE | 2019-12-27 10:19 | MHIPNPDOC ---
[facility] Progress Note Progress Note DATE OF SERVICE: 12/27/19 HISTORY: Patient is a 49 year old Female. She was brought in for manic and bizarre behaviors. VITAL SIGNS: See below. NEW TEST RESULTS: . CURRENT MEDICATIONS: See below. MENTAL STATUS EXAMINATION: Patient is a 49-year old female, who is manic, labile and non compliant with treatment. Speech: Is rapid, nonsensical Language skills are good Thought processes including: disorganized and scattered Thought content: manic, flight of ideas. Abstract reasoning, and computation: good Description of associations: allergies to many medications Description of abnormal or psychotic thoughts: reports that she is very allergic to all medications, this may be a delusion Judgment: poor Insight: poor Orientation: alert and orient Recent and remote memory: intact Attention span and concentration: poor Language: good Fund of knowledge: avergae Mood: manic, labile Affect: labile, anxious DIAGNOSES: 1. Bipolar I Disorder, Current Episode, Manic ASSESSMENT: Patient continues to be unstable. She is refusing to speak with provider about medications. I reinforced with the patient that I am moving forward with treatment over objection as she consistently is not compliant with medications. She often is willing to take one or two doses of antipsychotics and wants to switch to a medication that she promises that she will be take regularly and fails to do so. She is observed to be bizarre in her appearance. Her hair is fashioned in many twists and christopher. Patient cut her shirt and made an unusual twist with one sleeve. MANAGEMENT PLAN: Continue on medications, TOO TIME SPENT: 20 minutes. Vital Signs Vital Signs Date Time Temp Pulse Resp B/P (MAP) Pulse Ox O2 Delivery O2 Flow Rate FiO2 12/27/19 06:45 97.6 103 18 133/76 (95) 100 Room Air Current Medications Current Medications Medications (Trade) Dose Ordered Sig/Jackelyn Route PRN Reason Start Time Stop Time Status Last Admin Dose Admin Acetaminophen (Tylenol Tab) 650 mg Q6H PRN PO HEADACHE OR DISCOMFORT 12/11/19 19:00 12/26/19 21:58 Al Hydrox/Mg Hydrox/Simethicone (Mylanta) 30 ml Q4H PRN PO HEARTBURN/INDIGESTION 12/11/19 19:00 12/25/19 15:04 Albuterol Sulfate (Proventil, Ventolin Hfa) 2 puff Q6H PRN INH SHORTNESS OF BREATH 12/11/19 18:00 12/27/19 06:21 Aripiprazole (AbiLIFY) 5 mg QHS PO 12/11/19 21:00 12/11/19 18:00 DC Aripiprazole (AbiLIFY) 5 mg QHS PO 12/12/19 21:00 12/15/19 12:54 DC 12/13/19 21:21 Cariprazine (Vraylar) 3 mg QHS PO 12/15/19 21:00 12/25/19 09:11 DC 12/21/19 20:18 Cetylpyridinium Chloride (Cepacol) 1 karoline Q6H PRN PO SORE THROAT 12/12/19 12:00 12/27/19 02:20 Clonazepam (KlonoPIN) 0.25 mg QAM PO 12/21/19 09:00 12/27/19 08:12 Clonazepam (KlonoPIN) 0.5 mg QAM PO 12/12/19 09:00 12/21/19 09:07 DC 12/21/19 08:21 Clonazepam (KlonoPIN) 0.75 mg QHS PO 12/25/19 21:00 12/26/19 20:40 Clonazepam (KlonoPIN) 1 mg QHS PO 12/11/19 21:00 12/25/19 09:11 DC 12/24/19 20:18 Cyclobenzaprine HCl (Flexeril) 5 mg BIDP PRN PO MUSCLE SPASMS 12/13/19 21:15 12/27/19 00:38 Docusate Sodium (Colace) 100 mg BID PRN PO CONSTIPATION 12/11/19 19:00 12/19/19 21:42 Haloperidol (Haldol) 5 mg BID PO 12/25/19 09:00 12/26/19 08:27 Home Med (Med Rec Complete!) ASDIRECTED XX 12/11/19 18:45 12/11/19 18:40 DC Lidocaine (Lidoderm Patch) 1 patch DAILY PRN TD LOWER BACK PAIN 12/12/19 09:00 12/27/19 08:14 Lorazepam (Ativan) 1 mg BIDP PRN PO ANXIETY/AGITATION 12/16/19 13:45 12/23/19 13:44 DC 12/23/19 04:49 Lorazepam (Ativan) 1 mg BIDP PRN PO ANXIETY/AGITATION 12/23/19 14:15 12/27/19 09:12 Lorazepam (Ativan) 2 mg STAT STAT PO 12/25/19 11:20 12/25/19 11:22 DC 12/25/19 11:25 Magnesium Hydroxide (Milk Of Magnesia) 30 ml DAILYPRN PRN PO CONSTIPATION 12/11/19 19:00 12/24/19 02:28 Menthol/Methyl Salicylate (Bengay Cream) APPLY TO BILATERAL KNEES ... Q8H PRN TOP KNEE PAIN 12/11/19 19:00 12/26/19 16:57 Nicotine (Nicoderm Cq 21mg) 1 patch DAILY TD 12/12/19 09:00 12/27/19 08:13 Non-Formulary Medication ( See Comment Field Below ) REMOVE LIDODERM PATCH DAILY@21 XX 12/11/19 21:00 12/26/19 21:00 Olanzapine (ZyPREXA ZYDIS) 5 mg Q4HP PRN PO AGITATION 12/14/19 21:15 12/26/19 08:27 Olanzapine (ZyPREXA ZYDIS) 5 mg QHS PO 12/11/19 21:00 12/12/19 11:49 DC 12/11/19 22:22 Ondansetron HCl (Zofran Odt) 4 mg Q8H PRN PO NAUSEA 12/11/19 19:00 12/27/19 08:32 Paliperidone Palmitate (Invega Sustenna) 234 mg Q30D IM 12/22/19 09:00 12/25/19 09:11 DC 12/22/19 08:23 Polyethylene Glycol (Miralax) 1 pkt DAILY PRN PO CONSTIPATION 12/11/19 19:00 12/27/19 09:11 Risperidone (RisperDAL) 1 mg QHS PO 12/20/19 21:00 12/25/19 09:11 DC 12/20/19 20:07 Sucralfate (Carafate Suspension) 1 gm BID PO 12/15/19 21:00 12/27/19 08:12 Sucralfate (Carafate) 1 gm BID PO 12/11/19 21:00 12/15/19 12:59 DC 12/15/19 08:46 Allergies Coded Allergies: Penicillins (Unverified Allergy, Unknown, 12/14/19) diethylene glycol (Unverified Allergy, Unknown, 12/14/19) ALSO CALLED CARBITOL divalproex sodium (Unverified Allergy, Unknown, Unverified reaction. It is SUSPECT, 12/14/19) fluphenazine (Unverified Allergy, Unknown, UNVERIFIED REACTION. IT IS S USPECT, 12/14/19) lithium (Unverified Allergy, Unknown, UNVERIFIED REACTION. IT IS SUSPECT., 12/14/19) meperidine (Unverified Allergy, Unknown, 12/14/19) metoclopramide (Unverified Allergy, Unknown, 12/14/19) olanzapine (Unverified Allergy, Unknown, 12/14/19) PT CANNOT VERBALIZE ACTUAL REACTION TO MEDICATION, HAS TAKEN PREVIOUS DOSES ON UNIT WITHOUT INCIDENT ranitidine (Unverified Allergy, Unknown, 12/14/19) risperidone (Unverified Allergy, Unknown, Unverified reaction. It is SUSPECT., 12/14/19) sertraline (Unverified Allergy, Unknown, Unverified reaction. It is SUSPECT, 12/14/19) acetaminophen (Verified Adverse Reaction, Unknown, PT HX HEP B, HEP C, 12/11/19) haloperidol (Verified Adverse Reaction, Unknown, makes me go crazy, 12/11/19) uNVERIFIED REACTION. IT IS SUSPECT SANDI MORAN NP Dec 27, 2019 10:19
[2019-12-27] MEDS: MAALOX 30 ML SUSP *UDC PO PRN ×2 (12:51→19:31)
[2019-12-27] MEDS: ACETAMINOPHEN TAB 650MG DOSE (2X325MG) PO PRN ×2 (12:52→21:19)
[2019-12-27 16:57] VITALS: BP 131/80
[2019-12-27] MEDS: PILL CUTTER 1 EACH XX PRN (21:16)
[2019-12-27] MEDS: ANALGESIC BALM CRM 120 GM TOP PRN (21:22)
[2019-12-28] MEDS: CYCLOBENZAPRINE 5MG TABLET PO PRN (03:09)
[2019-12-28] MEDS: ONDANSETRON 4 MG ORAL DISINTEGRATING TAB PO PRN ×2 (04:46→21:53)
[2019-12-28] MEDS: CEPACOL LOZENGE PO PRN ×3 (04:46→21:05)
[2019-12-28] MEDS: ACETAMINOPHEN TAB 650MG DOSE (2X325MG) PO PRN (04:47)
[2019-12-28 06:50] VITALS: BP 156/88
[2019-12-28] MEDS: ANALGESIC BALM CRM 120 GM TOP PRN ×2 (06:55→21:07)
[2019-12-28] MEDS: haloperidoL 5 MG TAB PO SCH ×2 (09:03→19:34)
[2019-12-28] MEDS: SUCRALFATE SUSP 1GM/10ML UD PO SCH ×2 (09:03→19:35)
[2019-12-28] MEDS: clonazePAM 0.5 MG TAB PO SCH ×2 (09:03→21:03)
[2019-12-28] MEDS: NICOTINE 21MG/24HR 1 EA TRANSDERMAL TD SCH (09:03)
[2019-12-28] MEDS: PILL CUTTER 1 EACH XX PRN ×2 (09:04→21:05)
[2019-12-28] MEDS: ALBUTEROL 90 MCG/ACT 8GM HFA INHALER INH PRN ×2 (10:11→21:07)
--- NOTE | 2019-12-28 10:28 | MHIPNPDOC ---
[facility] Progress Note Progress Note DATE OF SERVICE: 12/28/19 HISTORY: Patient is a 49 year old Female who has a long history of psychiatric hospitalizations and polysubstance use. She was a 9.41 to [facility] by [facility] for Manic, Delusional and Bizarre Behaviors VITAL SIGNS: See below. NEW TEST RESULTS: CURRENT MEDICATIONS: See below. MENTAL STATUS EXAMINATION: Patient is a 49-year old female, who was consistently refusing medications to stabilize her. At this time, she has had 3 doses of Haldol and she presents calmer, less pressured speech and she is able to engage in conversation. Patient appear her stated age. She is dressed in hospital scrubs, has a white gaby in her hair that she made out of tissues. Alert and oriented, making good eye contact. Her speech is normal tone, volume and tone. She is denying depre ssion, suicidal/homicidal thoughts. She reports mild anxiety. She is not observed and denies paranoia, delusions, obsessions, auditory/visual hallucinations. Her memory is intact. Cognitive functioning is congruent to her educations. Insight and judgement is mildly fair. She has good improvement is the last 24 hours. DIAGNOSES: 1. Bipolar I Disorder, Current Episode, Manic ASSESSMENT: Patient reports that she has a headache. She is calmer, not manic and she is able to converse in normal tone and volume. She is requesting Prozac to her regimen, this was not started as she may have a resurgence of manic symptoms. She appears to have mild improvement. She is not labile, not manic, she denies depression and is not voicing suicidality. MANAGEMENT PLAN: Medication changes as followed: Zyprexa PRN is discontinued. Haldol 5 mg every 6 hours PRN for agitation initiated. Patient reporting headache and requests Topimax, she is agreeable to Ibuprogen 600 mg. TIME SPENT: 30 minutes. Vital Signs Vital Signs Date Time Temp Pulse Resp B/P (MAP) Pulse Ox O2 Delivery O2 Flow Rate FiO2 12/28/19 06:50 98.5 107 22 156/88 (110) 100 Room Air Current Medications Current Medications Medications (Trade) Dose Ordered Sig/Jackelyn Route PRN Reason Start Time Stop Time Status Last Admin Dose Admin Acetaminophen (Tylenol Tab) 650 mg Q6H PRN PO HEADACHE OR DISCOMFORT 12/11/19 19:00 12/28/19 04:47 Al Hydrox/Mg Hydrox/Simethicone (Mylanta) 30 ml Q4H PRN PO HEARTBURN/INDIGESTION 12/11/19 19:00 12/27/19 19:31 Albuterol Sulfate (Proventil, Ventolin Hfa) 2 puff Q6H PRN INH SHORTNESS OF BREATH 12/11/19 18:00 12/27/19 15:48 Aripiprazole (AbiLIFY) 5 mg QHS PO 12/11/19 21:00 12/11/19 18:00 DC Aripiprazole (AbiLIFY) 5 mg QHS PO 12/12/19 21:00 12/15/19 12:54 DC 12/13/19 21:21 Cariprazine (Vraylar) 3 mg QHS PO 12/15/19 21:00 12/25/19 09:11 DC 12/21/19 20:18 Cetylpyridinium Chloride (Cepacol) 1 karoline Q6H PRN PO SORE THROAT 12/12/19 12:00 12/28/19 04:46 Clonazepam (KlonoPIN) 0.25 mg QAM PO 12/21/19 09:00 12/28/19 09:03 Clonazepam (KlonoPIN) 0.5 mg QAM PO 12/12/19 09:00 12/21/19 09:07 DC 12/21/19 08:21 Clonazepam (KlonoPIN) 0.75 mg QHS PO 12/25/19 21:00 12/27/19 20:12 Clonazepam (KlonoPIN) 1 mg QHS PO 12/11/19 21:00 12/25/19 09:11 DC 12/24/19 20:18 Cyclobenzaprine HCl (Flexeril) 5 mg BIDP PRN PO MUSCLE SPASMS 12/13/19 21:15 12/28/19 03:09 Docusate Sodium (Colace) 100 mg BID PRN PO CONSTIPATION 12/11/19 19:00 12/19/19 21:42 Haloperidol (Haldol) 5 mg BID PO 12/25/19 09:00 12/28/19 09:03 Home Med (Med Rec Complete!) ASDIRECTED XX 12/11/19 18:45 12/11/19 18:40 DC Lidocaine (Lidoderm Patch) 1 patch DAILY PRN TD LOWER BACK PAIN 12/12/19 09:00 12/27/19 08:14 Lorazepam (Ativan) 1 mg BIDP PRN PO ANXIETY/AGITATION 12/16/19 13:45 12/23/19 13:44 DC 12/23/19 04:49 Lorazepam (Ativan) 1 mg BIDP PRN PO ANXIETY/AGITATION 12/23/19 14:15 12/27/19 23:15 Lorazepam (Ativan) 2 mg STAT STAT PO 12/25/19 11:20 12/25/19 11:22 DC 12/25/19 11:25 Magnesium Hydroxide (Milk Of Magnesia) 30 ml DAILYPRN PRN PO CONSTIPATION 12/11/19 19:00 12/24/19 02:28 Menthol/Methyl Salicylate (Bengay Cream) APPLY TO BILATERAL KNEES ... Q8H PRN TOP KNEE PAIN 12/11/19 19:00 12/28/19 06:55 Nicotine (Nicoderm Cq 21mg) 1 patch DAILY TD 12/12/19 09:00 12/28/19 09:03 Non-Formulary Medication ( See Comment Field Below ) REMOVE LIDODERM PATCH DAILY@21 XX 12/11/19 21:00 12/27/19 21:14 Olanzapine (ZyPREXA ZYDIS) 5 mg Q4HP PRN PO AGITATION 12/14/19 21:15 12/26/19 08:27 Olanzapine (ZyPREXA ZYDIS) 5 mg QHS PO 12/11/19 21:00 12/12/19 11:49 DC 12/11/19 22:22 Ondansetron HCl (Zofran Odt) 4 mg Q8H PRN PO NAUSEA 12/11/19 19:00 12/28/19 04:46 Paliperidone Palmitate (Invega Sustenna) 234 mg Q30D IM 12/22/19 09:00 12/25/19 09:11 DC 12/22/19 08:23 Polyethylene Glycol (Miralax) 1 pkt DAILY PRN PO CONSTIPATION 12/11/19 19:00 12/27/19 09:11 Risperidone (RisperDAL) 1 mg QHS PO 12/20/19 21:00 12/25/19 09:11 DC 12/20/19 20:07 Sucralfate (Carafate Suspension) 1 gm BID PO 12/15/19 21:00 12/28/19 09:03 Sucralfate (Carafate) 1 gm BID PO 12/11/19 21:00 12/15/19 12:59 DC 12/15/19 08:46 Allergies Coded Allergies: Penicillins (Unverified Allergy, Unknown, 12/14/19) diethylene glycol (Unverified Allergy, Unknown, 12/14/19) ALSO CALLED CARBITOL divalproex sodium (Unverified Allergy, Unknown, Unverified reaction. It is SUSPECT, 12/14/19) fluphenazine (Unverified Allergy, Unknown, UNVERIFIED REACTION. IT IS SUSPECT, 12/14/19) lithium (Unverified Allergy, Unknown, UNVERIFIED REACTION. IT IS SUSPECT., 12/14/19) meperidine (Unverified Allergy, Unknown, 12/14/19) metoclopramide (Unverified Allergy, Unknown, 12/14/19) olanzapine (Unverified Allergy, Unknown, 12/14/19) PT CANNOT VERBALIZE ACTUAL REACTION TO MEDICATION, HAS TAKEN PREVIOUS DOSES ON UNIT WITHOUT INCIDENT ranitidine (Unverified Allergy, Unknown, 12/14/19) risperidone (Unverified Allergy, Unknown, Unverified reaction. It is SUSPECT., 12/14/19) sertraline (Unverified Allergy, Unknown, Unverified reaction. It is SUSPECT, 12/14/19) acetaminophen (Verified Adverse Reaction, Unknown, PT HX HEP B, HEP C, 12/11/19) haloperidol (Verified Adverse Reaction, Unknown, makes me go crazy, 12/11/19) uNVERIFIED REACTION. IT IS SUSPECT SANDI MORAN NP Dec 28, 2019 10:27
[2019-12-28] MEDS: IBUPROFEN 600MG TAB PO PRN (10:57)
[2019-12-28] MEDS: LORazepam 1 MG TAB PO PRN (13:29)
[2019-12-28] MEDS: haloperidoL 5 MG TAB PO PRN (13:29)
[2019-12-28 19:26] VITALS: BP 120/68
[2019-12-29] MEDS: ALBUTEROL 90 MCG/ACT 8GM HFA INHALER INH PRN ×2 (05:10→21:01)
[2019-12-29] MEDS: LORazepam 1 MG TAB PO PRN ×2 (05:13→21:02)
[2019-12-29 06:39] VITALS: BP 158/84
[2019-12-29] MEDS: SUCRALFATE SUSP 1GM/10ML UD PO SCH ×2 (08:29→20:08)
[2019-12-29] MEDS: PILL CUTTER 1 EACH XX PRN (08:31)
[2019-12-29] MEDS: haloperidoL 5 MG TAB PO SCH ×2 (08:31→20:09)
[2019-12-29] MEDS: NICOTINE 21MG/24HR 1 EA TRANSDERMAL TD SCH (08:31)
[2019-12-29] MEDS: clonazePAM 0.5 MG TAB PO SCH ×2 (08:32→20:08)
[2019-12-29] MEDS: CEPACOL LOZENGE PO PRN ×2 (10:11→21:01)
[2019-12-29] MEDS: ANALGESIC BALM CRM 120 GM TOP PRN ×2 (10:12→20:08)
[2019-12-29] MEDS: IBUPROFEN 600MG TAB PO PRN ×2 (10:13→21:43)
[2019-12-29] MEDS: haloperidoL 5 MG TAB PO PRN (15:23)
[2019-12-29] MEDS: ONDANSETRON 4 MG ORAL DISINTEGRATING TAB PO PRN (15:24)
--- NOTE | 2019-12-29 20:07 | HPEPDOC ---
General Date of Admission Dec 10, 2019 at 01:00 Date of Service: Dec 29, 2019 Attending Physician: NANCY FAY MD Chief Complaint The patient is a 49-year-old female admitted with a reason for visit of Bipolar Disorder. Source: Patient Exam Limitations: No limitations Timing/Duration: Day(s) (7) Severity: Moderate History of Present Illness 49 yo W with a history of bipolar disorder who was admitted with ongoing kevin for whom I am consulted for a painful, swollen R ankle that she reports has been so for approximately one week now without any clear trauma history but lots of walking. She continues to walk on it and is able to perform all movements but it is painful and she slightly limps to not use her heel. She otherwise has not had any fevers, chills, erythema, drainage or rashes. Past medical history: -Bipolar -History of PSUD ROS: 10 point ROS was performed and was negative or otherwise as stated above. Physical Exam: General: Thin, anxious, cooperative, pleasant HEENT: bitemporal wasting, poor dentition, otherwise NCAT, PERRLA, EOMI, anicteric Pulm: CTAB Cardiac: RRR, no mrg Abd: scaphoid, soft, NTND EXt: R ankle swollen, painful on palpation, no warmth or erythema, full range of motion. L ankle wnl Plan: Swollen R ankle: -will get complete XR of R ankle to assess for potential fracture -Encouraged her to put her foot up and rest it and avoid over use -ibuprofen PRN for pain as ordered -will follow up XR Home Medications Scheduled Fluoxetine Hcl (Fluoxetine HCl) 20 Mg Capsule, 20 MG PO DAILY for ., (Reported) Sucralfate (Carafate) 1 Gm/10 Ml Oral.susp, 10 ML PO BIDWM for . , (Reported) Scheduled PRN Clonazepam (Clonazepam) 1 Mg Tab.rapdis, 1 MG PO DAILY PRN for ANXIETY, (Reported) Allergies Coded Allergies: Penicillins (Unverified Allergy, Unknown, 12/14/19) diethylene glycol (Unverified Allergy, Unknown, 12/14/19) ALSO CALLED CARBITOL divalproex sodium (Unverified Allergy, Unknown, Unverified reaction. It is SUSPECT, 12/14/19) fluphenazine (Unverified Allergy, Unknown, UNVERIFIED REACTION. IT IS SUSPECT, 12/14/19) lithium (Unverified Allergy, Unknown, UNVERIFIED REACTION. IT IS SUSPECT., 12/14/19) meperidine (Unverified Allergy, Unknown, 12/14/19) metoclopramide (Unverified Allergy, Unknown, 12/14/19) olanzapine (Unverified Allergy, Unknown, 12/14/19) PT CANNOT VERBALIZE ACTUAL REACTION TO MEDICATION, HAS TAKEN PREVIOUS DOSES ON UNIT WITHOUT INCIDENT ranitidine (Unverified Allergy, Unknown, 12/14/19) risperidone (Unverified Allergy, Unknown, Unverified reaction. It is SUSPECT., 12/14/19) sertraline (Unverified Allergy, Unknown, Unverified reaction. It is FERN PECT, 12/14/19) acetaminophen (Verified Adverse Reaction, Unknown, PT HX HEP B, HEP C, 12/11/19) haloperidol (Verified Adverse Reaction, Unknown, makes me go crazy, 12/11/19) uNVERIFIED REACTION. IT IS SUSPECT A-FIB/CHADSVASC A-FIB History Current/History of A-Fib/PAF?: No Current PO Anticoag Therapy: No Age/Risk Factor Scoring CHADSVASC: CHADSVASC Response (Comments) Value Age Risk Factor Age < 65 years old 0 Gender Risk Factor Female 1 Hx of CHF No 0 Hx of HTN No 0 Hx of Stroke/TIA/or VTE No 0 Hx of Diabetes No 0 Hx of Vascular Disease No 0 Total 1 Treatment Treatment ordered: NONE Reason Anticoagulant not given: Not indicated/[id number] NANCY FAY MD Dec 29, 2019 20:07
[2019-12-29] MEDS: CYCLOBENZAPRINE 5MG TABLET PO PRN (20:08)
--- NOTE | 2019-12-29 21:19 | REPVR ---
PROCEDURE INFORMATION: Exam: XR Right Ankle Exam date and time: 12/29/2019 8:13 PM Age: 49 years old Clinical indication: Pain; Ankle; Right; Additional info: Swollen, pain, limping in manic patient TECHNIQUE: Imaging protocol: XR Right ankle. Views: 3 or more views. COMPARISON: No relevant prior studies available. FINDINGS: Bones/joints: There is no fracture or dislocation. The ankle mortise is symmetric. The joint spaces are preserved. No arthropathy is noted. Soft tissues: There is soft tissue swelling around the right ankle and dorsal aspect of the right foot. IMPRESSION: Soft tissue swelling around the right ankle and dorsal aspect of the right foot. No fracture or dislocation. Electronically signed by: Sudhir Kulkarni On 12/29/2019 21:19:01 PM
[2019-12-30 06:51] VITALS: BP 132/63
[2019-12-30] MEDS: CEPACOL LOZENGE PO PRN (07:03)
[2019-12-30] MEDS: ANALGESIC BALM CRM 120 GM TOP PRN ×2 (07:03→20:29)
[2019-12-30] MEDS: SUCRALFATE SUSP 1GM/10ML UD PO SCH ×2 (08:05→20:28)
[2019-12-30] MEDS: LIDOCAINE 5% (LIDODERM) PATCH TD PRN (08:05)
[2019-12-30] MEDS: clonazePAM 0.5 MG TAB PO SCH ×2 (08:06→20:30)
[2019-12-30] MEDS: NICOTINE 21MG/24HR 1 EA TRANSDERMAL TD SCH (08:06)
[2019-12-30] MEDS: haloperidoL 5 MG TAB PO SCH ×3 (08:06→22:09)
[2019-12-30] MEDS: MIRALAX *UNIT DOSE* 17GM PACKET PO PRN (15:50)
[2019-12-30 19:03] VITALS: BP 138/88
[2019-12-30] MEDS: IBUPROFEN 600MG TAB PO PRN (22:09)
[2019-12-30] MEDS: haloperidoL 5 MG TAB PO PRN (23:49)
[2019-12-30] MEDS: MAALOX 30 ML SUSP *UDC PO PRN (23:49)
[2019-12-31] MEDS: CEPACOL LOZENGE PO PRN ×3 (06:22→23:14)
[2019-12-31 06:39] VITALS: BP 141/79
[2019-12-31] MEDS: SUCRALFATE SUSP 1GM/10ML UD PO SCH ×2 (08:30→20:13)
[2019-12-31] MEDS: ALBUTEROL 90 MCG/ACT 8GM HFA INHALER INH PRN (08:30)
[2019-12-31] MEDS: haloperidoL 5 MG TAB PO SCH ×4 (08:30→21:00)
[2019-12-31] MEDS: clonazePAM 0.5 MG TAB PO SCH ×2 (08:30→20:13)
[2019-12-31] MEDS: NICOTINE 21MG/24HR 1 EA TRANSDERMAL TD SCH (08:31)
[2019-12-31] MEDS: ANALGESIC BALM CRM 120 GM TOP PRN (08:31)
[2019-12-31] MEDS: LIDOCAINE 5% (LIDODERM) PATCH TD PRN (08:31)
[2019-12-31] MEDS: IBUPROFEN 600MG TAB PO PRN (09:14)
[2019-12-31] MEDS: ONDANSETRON 4 MG ORAL DISINTEGRATING TAB PO PRN (12:46)
[2019-12-31] MEDS: MOM 30ML SUSPENSION UDC PO PRN (12:47)
[2019-12-31] MEDS: CYCLOBENZAPRINE 5MG TABLET PO PRN (14:55)
[2019-12-31] MEDS: haloperidoL 5 MG TAB PO PRN (14:55)
[2019-12-31] MEDS: MAALOX 30 ML SUSP *UDC PO PRN (17:03)
[2019-12-31 17:59] VITALS: BP 139/80
[2020-01-01] MEDS: haloperidoL 5 MG TAB PO PRN (00:03)
[2020-01-01] MEDS: IBUPROFEN 600MG TAB PO PRN ×2 (00:24→16:03)
[2020-01-01] MEDS: CYCLOBENZAPRINE 5MG TABLET PO PRN ×2 (00:26→21:06)
[2020-01-01] MEDS: ANALGESIC BALM CRM 120 GM TOP PRN ×2 (07:22→21:06)
[2020-01-01] MEDS: SUCRALFATE SUSP 1GM/10ML UD PO SCH ×2 (09:00→20:14)
[2020-01-01] MEDS: NICOTINE 21MG/24HR 1 EA TRANSDERMAL TD SCH (09:00)
[2020-01-01] MEDS: clonazePAM 0.5 MG TAB PO SCH ×2 (09:00→20:14)
[2020-01-01] MEDS: haloperidoL 5 MG TAB PO SCH ×2 (09:00→20:14)
--- NOTE | 2020-01-01 10:16 | MHIPNPDOC ---
[facility] Progress Note Progress Note DATE OF SERVICE: 01/01/20 HISTORY: Patient is 49 year old Female who reports that she was brought to [facility] for Manic, Delusional and Bizarre behaviors VITAL SIGNS: See below. NEW TEST RESULTS: CURRENT MEDICATIONS: See below. MENTAL STATUS EXAMINATION: Patient is a 49-year old female, who is non-compliant with treatment regimen, especially psychopharmocological treatment. Her hygiene and grooming is good, but her clothing is sometimes bizarre. She often wraps shirts and makes them into skirts of takes the shirt to fashion it into a skirt. Speech: Is rapid, flight of ideas, tangential Language skills are good Thought processes including: hypomanic Thought content: racing thoughts Abstract reasoning, and computation: fair Description of associations: hypomanic behaviors Description of abnormal or psychotic thoughts: tangential, hypomanic, disorganized and flight of ideas Judgment: poor Insight: poor Orientation: alert and oriented Recent and remote memory: intact Attention span and concentration: fair Language: good Fund of knowledge: Average Mood: Hypomanic Affect: flat/anxious/mildly labile DIAGNOSES: 1. Bipolar I, Manic ASSESSMENT: Patient is requesting her own clothes and wants to be discharged. Is very focused on getting her own clothes to wear, Patient takes off her shirt and throw a second one on the floor and states that she needs to wear her shift around her waist. "I can't even have an a child because I have a dog." Parag rodriguez is also focused on another physician and states that she is in the process of suing her. She complains of her right foot being swollen (top of right foot and up to the ankle is swollen.) Encouraged to keep her foot up - patient has a history of multiple foot surgeries. She is observed to be very disorganized, scattered and hypomanic. She is hypomanic and tangential in her speech, difficult to engage in meaningful therapy today due to her flight of ideas. MANAGEMENT PLAN: Treatment Over Objection as patient has not taken medications consistently which will not stabilize her as she will take a medication and then will not take medications for the next two days and then take it a few days luigi and then refuse again for several days in a row. TIME SPENT: 15 minutes. Vital Signs Vital Signs Date Time Temp Pulse Resp B/P (MAP) Pulse Ox O2 Delivery O2 Flow Rate FiO2 12/31/19 23:17 119 17 98 Room Air 12/31/19 17:59 99.5 139/80 (99) Current Medications Current Medications Medications (Trade) Dose Ordered Sig/Jackelyn Route PRN Reason Start Time Stop Time Status Last Admin Dose Admin Acetaminophen (Tylenol Tab) 650 mg Q6H PRN PO HEADACHE OR DISCOMFORT 12/11/19 19:00 12/28/19 10:13 DC 12/28/19 04:47 Al Hydrox/Mg Hydrox/Simethicone (Mylanta) 30 ml Q4H PRN PO HEARTBURN/INDIGESTION 12/11/19 19:00 12/31/19 17:03 Albuterol Sulfate (Proventil, Ventolin Hfa) 2 puff Q6H PRN INH SHORTNESS OF BREATH 12/11/19 18:00 12/31/19 08:30 Aripiprazole (AbiLIFY) 5 mg QHS PO 12/11/19 21:00 12/11/19 18:00 DC Aripiprazole (AbiLIFY) 5 mg QHS PO 12/12/19 21:00 12/15/19 12:54 DC 12/13/19 21:21 Cariprazine (Vraylar) 3 mg QHS PO 12/15/19 21:00 12/25/19 09:11 DC 12/21/19 20:18 Cetylpyridinium Chloride (Cepacol) 1 karoline Q6H PRN PO SORE THROAT 12/12/19 12:00 12/31/19 23:14 Clonazepam (KlonoPIN) 0.25 mg QAM PO 12/21/19 09:00 12/31/19 08:30 Clonazepam (KlonoPIN) 0.5 mg QAM PO 12/12/19 09:00 12/21/19 09:07 DC 12/21/19 08:21 Clonazepam (KlonoPIN) 0.75 mg QHS PO 12/25/19 21:00 12/31/19 20:13 Clonazepam (KlonoPIN) 1 mg QHS PO 12/11/19 21:00 12/25/19 09:11 DC 12/24/19 20:18 Cyclobenzaprine HCl (Flexeril) 5 mg BIDP PRN PO MUSCLE SPASMS 12/13/19 21:15 01/01/20 00:26 Docusate Sodium (Colace) 100 mg BID PRN PO CONSTIPATION 12/11/19 19:00 12/19/19 21:42 Haloperidol (Haldol) 5 mg BID PO 12/25/19 09:00 12/31/19 09:14 Haloperidol (Haldol) 5 mg Q6HP PRN PO AGITATION 12/28/19 10:15 01/01/20 00:03 Home Med (Med Rec Complete!) ASDIRECTED XX 12/11/19 18:45 12/11/19 18:40 DC Ibuprofen (Advil) 600 mg Q8HP PRN PO PAIN 12/28/19 10:15 01/01/20 00:24 Lidocaine (Lidoderm Patch) 1 patch DAILY PRN TD LOWER BACK PAIN 12/12/19 09:00 12/31/19 08:31 Lorazepam (Ativan) 1 mg BIDP PRN PO ANXIETY/AGITATION 12/16/19 13:45 12/23/19 13:44 DC 12/23/19 04:49 Lorazepam (Ativan) 1 mg BIDP PRN PO ANXIETY/AGITATION 12/23/19 14:15 12/30/19 14:14 DC 12/29/19 21:02 Lorazepam (Ativan) 2 mg STAT STAT PO 12/25/19 11:20 12/25/19 11:22 DC 12/25/19 11:25 Magnesium Hydroxide (Milk Of Magnesia) 30 ml DAILYPRN PRN PO CONSTIPATION 12/11/19 19:00 12/31/19 12:47 Menthol/Methyl Salicylate (Bengay Cream) APPLY TO BILATERAL KNEES ... Q8H PRN TOP KNEE PAIN 12/11/19 19:00 01/01/20 07:22 Miscellaneous (Unresolved Clarification Entry) SEE LABEL COMMENTS DAILY XX 01/01/20 09:00 Nicotine (Nicoderm Cq 21mg) 1 patch DAILY TD 12/12/19 09:00 12/31/19 08:31 Non-Formulary Medication ( See Comment Field Below ) REMOVE LIDODERM PATCH DAILY@21 XX 12/11/19 21:00 12/31/19 21:00 Olanzapine (ZyPREXA ZYDIS) 5 mg Q4HP PRN PO AGITATION 12/14/19 21:15 12/28/19 10:13 DC 12/26/19 08:27 Olanzapine (ZyPREXA ZYDIS) 5 mg QHS PO 12/11/19 21:00 12/12/19 11:49 DC 12/11/19 22:22 Ondansetron HCl (Zofran Odt) 4 mg Q8H PRN PO NAUSEA 12/11/19 19:00 12/31/19 12:46 Paliperidone Palmitate (Invega Sustenna) 234 mg Q30D IM 12/22/19 09:00 12/25/19 09:11 DC 12/22/19 08:23 Polyethylene Glycol (Miralax) 1 pkt DAILY PRN PO CONSTIPATION 12/11/19 19:00 12/30/19 15:50 Risperidone (RisperDAL) 1 mg QHS PO 12/20/19 21:00 12/25/19 09:11 DC 12/20/19 20:07 Sucralfate (Carafate Suspension) 1 gm BID PO 12/15/19 21:00 12/31/19 20:13 Sucralfate (Carafate) 1 gm BID PO 12/11/19 21:00 12/15/19 12:59 DC 12/15/19 08:46 Allergies Coded Allergies: Penicillins (Unverified Allergy, Unknown, 12/14/19) diethylene glycol (Unverified Allergy, Unknown, 12/14/19) ALSO CALLED CARBITOL divalproex sodium (Unverified Allergy, Unknown, Unverified reaction. It is SUSPECT, 12/14/19) fluphenazine (Unverified Allergy, Unknown, UNVERIFIED REACTION. IT IS SUSPECT, 12/14/19) lithium (Unverified Allergy, Unknown, UNVERIFIED REACTION. IT IS SUSPECT., 12/14/19) meperidine (Unverified Allergy, Unknown, 12/14/19) metoclopramide (Unverified Allergy, Unknown, 12/14/19) olanzapine (Unverified Allergy, Unknown, 12/14/19) PT CANNOT VERBALIZE ACTUAL REACTION TO MEDICATION, HAS TAKEN PREVIOUS DOSES ON UNIT WITHOUT INCIDENT ranitidine (Unverified Allergy, Unknown, 12/14/19) risperidone (Unverified Allergy, Unknown, Unverified reaction. It is SUSPECT., 12/14/19) sertraline (Unverified Allergy, Unknown, Unverified reaction. It is SUSPECT, 12/14/19) acetaminophen (Verified Adverse Reaction, Unknown, PT HX HEP B, HEP C, 12/11/19) haloperidol (Verified Adverse Reaction, Unknown, makes me go crazy, 12/11/19) uNVERIFIED REACTION. IT IS SUSPECT SADNI MORAN NP Jan 01, 2020 10:16
[2020-01-01] MEDS: ONDANSETRON 4 MG ORAL DISINTEGRATING TAB PO PRN ×2 (13:44→19:22)
[2020-01-01 18:00] VITALS: BP 144/88
[2020-01-01] MEDS: ALBUTEROL 90 MCG/ACT 8GM HFA INHALER INH PRN (19:22)
[2020-01-01] MEDS: CEPACOL LOZENGE PO PRN (21:06)
[2020-01-02] MEDS: IBUPROFEN 600MG TAB PO PRN ×3 (01:27→21:49)
[2020-01-02] MEDS: haloperidoL 5 MG TAB PO PRN (01:58)
[2020-01-02 05:29] VITALS: BP 137/77
[2020-01-02] MEDS: clonazePAM 0.5 MG TAB PO SCH ×2 (08:05→20:11)
[2020-01-02] MEDS: NICOTINE 21MG/24HR 1 EA TRANSDERMAL TD SCH (08:07)
[2020-01-02] MEDS: SUCRALFATE SUSP 1GM/10ML UD PO SCH ×2 (08:07→20:11)
[2020-01-02] MEDS: haloperidoL 5 MG TAB PO SCH ×2 (08:07→20:14)
[2020-01-02] MEDS: LIDOCAINE 5% (LIDODERM) PATCH TD PRN (08:09)
[2020-01-02] MEDS: ALBUTEROL 90 MCG/ACT 8GM HFA INHALER INH PRN ×2 (08:09→20:57)
[2020-01-02] MEDS: CEPACOL LOZENGE PO PRN ×2 (08:14→15:38)
[2020-01-02] MEDS: ANALGESIC BALM CRM 120 GM TOP PRN ×2 (09:01→20:10)
[2020-01-02] MEDS: CYCLOBENZAPRINE 5MG TABLET PO PRN ×2 (09:01→20:11)
[2020-01-02] MEDS: MIRALAX *UNIT DOSE* 17GM PACKET PO PRN (09:01)
--- NOTE | 2020-01-02 10:38 | MHIPNPDOC ---
[facility] Progress Note Progress Note DATE OF SERVICE: 01/02/20 HISTORY: Patient is a 49 year old female with a long psychiatric history with exacerbations of Bipolar Symptoms VITAL SIGNS: See below. NEW TEST RESULTS: CURRENT MEDICATIONS: See below. MENTAL STATUS EXAMINATION: Patient is a 49-year old female, who is admitted to [facility] on day 24. She appears her stated age. dressed bizarrely. Her hygiene and grooming is good. Patient demonstrates that she is wearing mesh panties, then her t-shirt as a scrub bottom, then wearing hospital scrub bottom and another mesh panty over the hospital scrub bottom. She makes good eye contact. She has not psychomotor agitation or retardation Speech: Is less rapid, less pressured but still has flight of ideas and tangential. Language skills are good Thought processes including: mostly linear but at times disorganized and scattered Thought content: Hypomanic symptoms, racing thoughts, somatic preoccupation (foot edema, diarrhea, hemorrhoids) Abstract reasoning, and computation: fair Description of associations: negative Description of abnormal or psychotic thoughts: reporting auditory hallucinations from Haldol but this is not observed, she is not responding to internal stimuli Judgment: poor Insight: poor Orientation: alert and oriented Recent and remote memory: intact Attention span and concentration: fair Language: good Fund of knowledge: average Mood: hypomanic/mildly labile. Affect: flat DIAGNOSES: 1. Bipolar I Disorder, Manic ASSESSMENT: Patient reports that she is not taking Haldol, wants to take Invega only because Haldol causes her hemorrhoids, diarrhea, and auditory hallucinations. She also requests Ativan and/or Benadryl because Clonazepam is not keeping her anxiety down. Patient is also focused on wanting to "go to [place] for 1 week" Patient is observed with less rapid speech, less pressure but with flight of ideas. Wants to be able to join group, but patient was very disruptive in group yesterday making it untherapeutic for her peers. No reports of depression, anxiety or suicidal ideation. No psychosis, paranoia, ideas of reference or delusions. She continues to have poor insight and judgment. MANAGEMENT PLAN: Patient is aware that Treatment over Objection is in process. Reinforced with her that TOO is to ensure her cooperation with treatment. Patient can be discharged if she was consistent with medications and stable of mood and has good insight and judgment. TIME SPENT: 20 minutes. Vital Signs Vital Signs Date Time Temp Pulse Resp B/P (MAP) Pulse Ox O2 Delivery O2 Flow Rate FiO2 01/02/20 05:29 98.9 110 18 137/77 (97) Room Air 01/01/20 18:00 100 Current Medications Current Medications Medications (Trade) Dose Ordered Sig/Jackelyn Route PRN Reason Start Time Stop Time Status Last Admin Dose Admin Acetaminophen (Tylenol Tab) 650 mg Q6H PRN PO HEADACHE OR DISCOMFORT 12/11/19 19:00 12/28/19 10:13 DC 12/28/19 04:47 Al Hydrox/Mg Hydrox/Simethicone (Mylanta) 30 ml Q4H PRN PO HEARTBURN/INDIGESTION 12/11/19 19:00 12/31/19 17:03 Albuterol Sulfate (Proventil, Ventolin Hfa) 2 puff Q6H PRN INH SHORTNESS OF BREATH 12/11/19 18:00 01/02/20 08:09 Aripiprazole (AbiLIFY) 5 mg QHS PO 12/11/19 21:00 12/11/19 18:00 DC Aripiprazole (AbiLIFY) 5 mg QHS PO 12/12/19 21:00 12/15/19 12:54 DC 12/13/19 21:21 Cariprazine (Vraylar) 3 mg QHS PO 12/15/19 21:00 12/25/19 09:11 DC 12/21/19 20:18 Cetylpyridinium Chloride (Cepacol) 1 karoline Q6H PRN PO SORE THROAT 12/12/19 12:00 01/02/20 08:14 Clonazepam (KlonoPIN) 0.25 mg QAM PO 12/21/19 09:00 01/02/20 08:05 Clonazepam (KlonoPIN) 0.5 mg QAM PO 12/12/19 09:00 12/21/19 09:07 DC 12/21/19 08:21 Clonazepam (KlonoPIN) 0.75 mg QHS PO 12/25/19 21:00 01/01/20 20:14 Clonazepam (KlonoPIN) 1 mg QHS PO 12/11/19 21:00 12/25/19 09:11 DC 12/24/19 20:18 Cyclobenzaprine HCl (Flexeril) 5 mg BIDP PRN PO MUSCLE SPASMS 12/13/19 21:15 01/02/20 09:01 Docusate Sodium (Colace) 100 mg BID PRN PO CONSTIPATION 12/11/19 19:00 12/19/19 21:42 Haloperidol (Haldol) 5 mg BID PO 12/25/19 09:00 01/02/20 08:07 Haloperidol (Haldol) 5 mg Q6HP PRN PO AGITATION 12/28/19 10:15 01/02/20 01:58 Home Med (Med Rec Complete!) ASDIRECTED XX 12/11/19 18:45 12/11/19 18:40 DC Ibuprofen (Advil) 600 mg Q8HP PRN PO PAIN 12/28/19 10:15 01/02/20 01:27 Lidocaine (Lidoderm Patch) 1 patch DAILY PRN TD LOWER BACK PAIN 12/12/19 09:00 01/02/20 08:09 Lorazepam (Ativan) 1 mg BIDP PRN PO ANXIETY/AGITATION 12/16/19 13:45 12/23/19 13:44 DC 12/23/19 04:49 Lorazepam (Ativan) 1 mg BIDP PRN PO ANXIETY/AGITATION 12/23/19 14:15 12/30/19 14:14 DC 12/29/19 21:02 Lorazepam (Ativan) 2 mg STAT STAT PO 12/25/19 11:20 12/25/19 11:22 DC 12/25/19 11:25 Magnesium Hydroxide (Milk Of Magnesia) 30 ml DAILYPRN PRN PO CONSTIPATION 12/11/19 19:00 12/31/19 12:47 Menthol/Methyl Salicylate (Bengay Cream) APPLY TO BILATERAL KNEES ... Q8H PRN TOP KNEE PAIN 12/11/19 19:00 01/02/20 09:01 Miscellaneous (Unresolved Clarification Entry) SEE LABEL COMMENTS DAILY XX 01/01/20 09:00 01/01/20 11:03 DC Nicotine (Nicoderm Cq 21mg) 1 patch DAILY TD 12/12/19 09:00 01/02/20 08:07 Non-Formulary Medication ( See Comment Field Below ) REMOVE LIDODERM PATCH DAILY@21 XX 12/11/19 21:00 12/31/19 21:00 Olanzapine (ZyPREXA ZYDIS) 5 mg Q4HP PRN PO AGITATION 12/14/19 21:15 12/28/19 10:13 DC 12/26/19 08:27 Olanzapine (ZyPREXA ZYDIS) 5 mg QHS PO 12/11/19 21:00 12/12/19 11:49 DC 12/11/19 22:22 Ondansetron HCl (Zofran Odt) 4 mg Q8H PRN PO NAUSEA 12/11/19 19:00 01/01/20 19:22 Paliperidone Palmitate (Invega Sustenna) 234 mg Q30D IM 12/22/19 09:00 12/25/19 09:11 DC 12/22/19 08:23 Polyethylene Glycol (Miralax) 1 pkt DAILY PRN PO CONSTIPATION 12/11/19 19:00 01/02/20 09:01 Risperidone (RisperDAL) 1 mg QHS PO 12/20/19 21:00 12/25/19 09:11 DC 12/20/19 20:07 Sucralfate (Carafate Suspension) 1 gm BID PO 12/15/19 21:00 01/02/20 08:07 Sucralfate (Carafate) 1 gm BID PO 12/11/19 21:00 12/15/19 12:59 DC 12/15/19 08:46 Allergies Coded Allergies: Penicillins (Unverified Allergy, Unknown, 12/14/19) diethylene glycol (Unverified Allergy, Unknown, 12/14/19) ALSO CALLED CARBITOL divalproex sodium (Unverified Allergy, Unknown, Unverified reaction. It is SUSPECT, 12/14/19) fluphenazine (Unverified Allergy, Unknown, UNVERIFIED REACTION. IT IS SUSPECT, 12/14/19) lithium (Unverified Allergy, Unknown, UNVERIFIED REACTION. IT IS SUSPECT., 12/14/19) meperidine (Unverified Allergy, Unknown, 12/14/19) metoclopramide (Unverified Allergy, Unknown, 12/14/19) olanzapine (Unverified Allergy, Unknown, 12/14/19) PT CANNOT VERBALIZE ACTUAL REACTION TO MEDICATION, HAS TAKEN PREVIOUS DOSES ON UNIT WITHOUT INCIDENT ranitidine (Unverified Allergy, Unknown, 12/14/19) risperidone (Unverified Allergy, Unknown, Unverified reaction. It is SUSPECT., 12/14/19) sertraline (Unverified Allergy, Unknown, Unverified reaction. It is SUSPECT, 12/14/19) acetaminophen (Verified Adverse Reaction, Unknown, PT HX HEP B, HEP C, 12/11/19) haloperidol (Verified Adverse Reaction, Unknown, makes me go crazy, 12/11/19) uNVERIFIED REACTION. IT IS SUSPECT SANDI MORAN NP Jan 02, 2020 10:38
[2020-01-02] MEDS: ONDANSETRON 4 MG ORAL DISINTEGRATING TAB PO PRN ×2 (13:18→21:48)
[2020-01-02] MEDS: MOM 30ML SUSPENSION UDC PO PRN (13:18)
[2020-01-02 18:44] VITALS: BP 144/84
[2020-01-03] MEDS: haloperidoL 5 MG TAB PO PRN (00:32)
[2020-01-03] MEDS: ALBUTEROL 90 MCG/ACT 8GM HFA INHALER INH PRN ×2 (06:42→20:13)
[2020-01-03] MEDS: ONDANSETRON 4 MG ORAL DISINTEGRATING TAB PO PRN ×2 (06:42→14:49)
[2020-01-03 06:50] VITALS: BP 141/74
[2020-01-03] MEDS: clonazePAM 0.5 MG TAB PO SCH ×2 (08:27→20:15)
[2020-01-03] MEDS: SUCRALFATE SUSP 1GM/10ML UD PO SCH ×2 (08:31→20:15)
[2020-01-03] MEDS: CYCLOBENZAPRINE 5MG TABLET PO PRN ×2 (08:31→20:14)
[2020-01-03] MEDS: NICOTINE 21MG/24HR 1 EA TRANSDERMAL TD SCH (08:31)
[2020-01-03] MEDS: ANALGESIC BALM CRM 120 GM TOP PRN ×2 (08:31→20:14)
[2020-01-03] MEDS: CEPACOL LOZENGE PO PRN (08:31)
[2020-01-03] MEDS: haloperidoL 5 MG TAB PO SCH ×2 (08:31→21:00)
[2020-01-03] MEDS: LIDOCAINE 5% (LIDODERM) PATCH TD PRN (08:32)
[2020-01-03] MEDS: IBUPROFEN 600MG TAB PO PRN ×2 (08:32→20:17)
--- NOTE | 2020-01-03 09:52 | MHIPNPDOC ---
[facility] Progress Note Progress Note DATE OF SERVICE: 01/03/20 HISTORY: Patient is a 49 year old Single, Disabled, Female who was brought to [facility] for Bizarre, Manic and Delusional Behaviors. She is diagnosed Bipolar Disorder, she has numerous psychiatric hospitalizations in [place], [place] (2); [facility]; [facility] (3); [facility]; [facility], [place], [place] and [place], [place] (4). She was a 9.[address] [facility] This is patients 5th hospitalization to this facility. To review patient presented as Labile, Manic and has no insight and judgement. She is refusing medications and makes numerous medications for which she does not meet criteria. Reviewed with patient need for compliance with current medication regimen. She states that she not willing to take Vraylar it makes her have headaches. She was also unwilling to take Abilify which she reported gave her stomach aches. She was then unwilling to take Abilify Maintena and stated that she was allergic, although never having it. She has been unwilling to take Thorazine for agitation, stating again that she is allergic. She was also unwilling to take Zyprexa for agitation because she is allergic. She reports numerous medications that she is allergic to including [place] which she would benefit from. Many of her example of allergic reactions are not true allergic reactions. She states today that she is only willing to take Invega as this is the only medications she has not taken. Vraylar is the best option for the patient as she reports minimal side effects, but refused the bedtime dose. She was given Invega Sustenna 234 mg IM on December 21, this was not as effective as predicted and then patient had refused to taken the Vraylar consistently. She was then started on Haldol 5 mg twice daily and she has not consistently taken this, and reports that sometimes she cheeks it. VITAL SIGNS: See below. NEW TEST RESULTS: CURRENT MEDICATIONS: See below. MENTAL STATUS EXAMINATION: Patient is a 49-year old female, who is less manic presenting with slower and less pressures speech. Speech: Is rapid, flight of ideas, tangential Language skills are good Thought processes including: hypomanic Thought content: racing thoughts Abstract reasoning, and computation: fair Description of associations: hypomanic behaviors Description of abnormal or psychotic thoughts: tangential, hypomanic, disorganized and flight of ideas Judgment: poor Insight: poor Orientation: alert and oriented Recent and remote memory: intact Attention span and concentration: fair Language: good Fund of knowledge: Average Mood: Hypomanic Affect: flat/anxious/mildly labile DIAGNOSES: 1. Bipolar I Disorder, Current Episode, Kevin ASSESSMENT: Patient is focused on medications, wanting to change Nicotine patch from 21 mg to 14 mg, also requesting Nicotine gum, wants Ativan and Clonazepam. Reinforced that she is still on Clonazepam and that she had requested to be titrated to be off Clonazepam. Patient is slightly less manic, but continues with rapid, pressured speech and flight of ideas. Continues to have bizarre b ehaviors; hoarding, collecting papers and tissues. Has scattered thinking and at times difficult to follow her thought process. Less labile and reporting that she feels that she needs her Prozac because she feels depressed. This will not be added to the regimen as I think this will activate her kevin. She is not observed with any depression. She reports that her left foot is less swelling. MANAGEMENT PLAN: Patient is stabilizing improving slowly. TIME SPENT: 30 minutes. Vital Signs Vital Signs Date Time Temp Pulse Resp B/P (MAP) Pulse Ox O2 Delivery O2 Flow Rate FiO2 01/03/20 06:50 98.4 100 14 141/74 (96) Room Air 01/01/20 18:00 100 Current Medications Current Medications Medications (Trade) Dose Ordered Sig/Jackelyn Route PRN Reason Start Time Stop Time Status Last Admin Dose Admin Acetaminophen (Tylenol Tab) 650 mg Q6H PRN PO HEADACHE OR DISCOMFORT 12/11/19 19:00 12/28/19 10:13 DC 12/28/19 04:47 Al Hydrox/Mg Hydrox/Simethicone (Mylanta) 30 ml Q4H PRN PO HEARTBURN/INDIGESTION 12/11/19 19:00 12/31/19 17:03 Albuterol Sulfate (Proventil, Ventolin Hfa) 2 puff Q6H PRN INH SHORTNESS OF BREATH 12/11/19 18:00 01/03/20 06:42 Aripiprazole (AbiLIFY) 5 mg QHS PO 12/11/19 21:00 12/11/19 18:00 DC Aripiprazole (AbiLIFY) 5 mg QHS PO 12/12/19 21:00 12/15/19 12:54 DC 12/13/19 21:21 Cariprazine (Vraylar) 3 mg QHS PO 12/15/19 21:00 12/25/19 09:11 DC 12/21/19 20:18 Cetylpyridinium Chloride (Cepacol) 1 karoline Q6H PRN PO SORE THROAT 12/12/19 12:00 01/03/20 08:31 Clonazepam (KlonoPIN) 0.25 mg QAM PO 12/21/19 09:00 01/03/20 08:27 Clonazepam (KlonoPIN) 0.5 mg QAM PO 12/12/19 09:00 12/21/19 09:07 DC 12/21/19 08:21 Clonazepam (KlonoPIN) 0.75 mg QHS PO 12/25/19 21:00 01/02/20 20:11 Clonazepam (KlonoPIN) 1 mg QHS PO 12/11/19 21:00 12/25/19 09:11 DC 12/24/19 20:18 Cyclobenzaprine HCl (Flexeril) 5 mg BIDP PRN PO MUSCLE SPASMS 12/13/19 21:15 01/03/20 08:31 Docusate Sodium (Colace) 100 mg BID PRN PO CONSTIPATION 12/11/19 19:00 12/19/19 21:42 Haloperidol (Haldol) 5 mg BID PO 12/25/19 09:00 01/03/20 08:31 Haloperidol (Haldol) 5 mg Q6HP PRN PO AGITATION 12/28/19 10:15 01/03/20 00:32 Home Med (Med Rec Complete!) ASDIRECTED XX 12/11/19 18:45 12/11/19 18:40 DC Ibuprofen (Advil) 600 mg Q8HP PRN PO PAIN 12/28/19 10:15 01/03/20 08:32 Lidocaine (Lidoderm Patch) 1 patch DAILY PRN TD LOWER BACK PAIN 12/12/19 09:00 01/03/20 08:32 Lorazepam (Ativan) 1 mg BIDP PRN PO ANXIETY/AGITATION 12/16/19 13:45 12/23/19 13:44 DC 12/23/19 04:49 Lorazepam (Ativan) 1 mg BIDP PRN PO ANXIETY/AGITATION 12/23/19 14:15 12/30/19 14:14 DC 12/29/19 21:02 Lorazepam (Ativan) 2 mg STAT STAT PO 12/25/19 11:20 12/25/19 11:22 DC 12/25/19 11:25 Magnesium Hydroxide (Milk Of Magnesia) 30 ml DAILYPRN PRN PO CONSTIPATION 12/11/19 19:00 01/02/20 13:18 Menthol/Methyl Salicylate (Bengay Cream) APPLY TO BILATERAL KNEES ... Q8H PRN TOP KNEE PAIN 12/11/19 19:00 01/03/20 08:31 Miscellaneous (Unresolved Clarification Entry) SEE LABEL COMMENTS DAILY XX 01/01/20 09:00 01/01/20 11:03 DC Nicotine (Nicoderm Cq 21mg) 1 patch DAILY TD 12/12/19 09:00 01/03/20 08:31 Non-Formulary Medication ( See Comment Field Below ) REMOVE LIDODERM PATCH DAILY@21 XX 12/11/19 21:00 01/02/20 20:14 Olanzapine (ZyPREXA ZYDIS) 5 mg Q4HP PRN PO AGITATION 12/14/19 21:15 12/28/19 10:13 DC 12/26/19 08:27 Olanzapine (ZyPREXA ZYDIS) 5 mg QHS PO 12/11/19 21:00 12/12/19 11:49 DC 12/11/19 22:22 Ondansetron HCl (Zofran Odt) 4 mg Q8H PRN PO NAUSEA 12/11/19 19:00 01/03/20 06:42 Paliperidone Palmitate (Invega Sustenna) 234 mg Q30D IM 12/22/19 09:00 12/25/19 09:11 DC 12/22/19 08:23 Phenyleph/Shark Oil/Min Oil/Petrol (Preparation H Ointment) BID PRN TOP hemorroids 01/02/20 10:30 Polyethylene Glycol (Miralax) 1 pkt DAILY PRN PO CONSTIPATION 12/11/19 19:00 01/02/20 09:01 Risperidone (RisperDAL) 1 mg QHS PO 12/20/19 21:00 9/1/20 09:11 DC 12/20/19 20:07 Sucralfate (Carafate Suspension) 1 gm BID PO 12/15/19 21:00 01/03/20 08:31 Sucralfate (Carafate) 1 gm BID PO 12/11/19 21:00 12/15/19 12:59 DC 12/15/19 08:46 Allergies Coded Allergies: Penicillins (Unverified Allergy, Unknown, 12/14/19) diethylene glycol (Unverified Allergy, Unknown, 12/14/19) ALSO CALLED CARBITOL divalproex sodium (Unverified Allergy, Unknown, Unverified reaction. It is SUSPECT, 12/14/19) fluphenazine (Unverified Allergy, Unknown, UNVERIFIED REACTION. IT IS SUSPECT, 12/14/19) lithium (Unverified Allergy, Unknown, UNVERIFIED REACTION. IT IS SUSPECT., 12/14/19) meperidine (Unverified Allergy, Unknown, 12/14/19) metoclopramide (Unverified Allergy, Unknown, 12/14/19) olanzapine (Unverified Allergy, Unknown, 12/14/19) PT CANNOT VERBALIZE ACTUAL REACTION TO MEDICATION, HAS TAKEN PREVIOUS DOSES ON UNIT WITHOUT INCIDENT ranitidine (Unverified Allergy, Unknown, 12/14/19) risperidone (Unverified Allergy, Unknown, Unverified reaction. It is SUSPECT., 12/14/19) sertraline (Unverified Allergy, Unknown, Unverified reaction. It is SUSPECT, 12/14/19) acetaminophen (Verified Adverse Reaction, Unknown, PT HX HEP B, HEP C, 12/11/19) haloperidol (Verified Adverse Reaction, Unknown, makes me go crazy, 12/11/19) uNVERIFIED REACTION. IT IS SUSPECT SANDI MORAN NP Jan 03, 2020 09:52
[2020-01-03] MEDS: MAALOX 30 ML SUSP *UDC PO PRN (12:56)
[2020-01-03 16:10] VITALS: BP 144/80
[2020-01-04] MEDS: ONDANSETRON 4 MG ORAL DISINTEGRATING TAB PO PRN ×2 (04:15→15:19)
[2020-01-04] MEDS: ANALGESIC BALM CRM 120 GM TOP PRN ×2 (04:45→20:24)
[2020-01-04] MEDS: IBUPROFEN 600MG TAB PO PRN (06:43)
[2020-01-04 07:07] VITALS: BP 145/91
[2020-01-04] MEDS: ALBUTEROL 90 MCG/ACT 8GM HFA INHALER INH PRN ×2 (08:06→19:27)
[2020-01-04] MEDS: LIDOCAINE 5% (LIDODERM) PATCH TD PRN (08:06)
[2020-01-04] MEDS: SUCRALFATE SUSP 1GM/10ML UD PO SCH ×2 (08:06→20:23)
[2020-01-04] MEDS: NICOTINE 21MG/24HR 1 EA TRANSDERMAL TD SCH (08:06)
[2020-01-04] MEDS: CYCLOBENZAPRINE 5MG TABLET PO PRN ×2 (08:06→19:27)
[2020-01-04] MEDS: CEPACOL LOZENGE PO PRN ×2 (08:06→23:28)
[2020-01-04] MEDS: clonazePAM 0.5 MG TAB PO SCH ×2 (08:07→20:23)
[2020-01-04] MEDS: haloperidoL 5 MG TAB PO SCH ×2 (08:07→20:03)
--- NOTE | 2020-01-04 10:32 | MHIPNPDOC ---
[facility] Progress Note Progress Note DATE OF SERVICE: 01/04/20 Patient is a 49 year old Single, Disabled, Female who was brought to [facility] for Bizarre, Manic and Delusional Behaviors. She is diagnosed Bipolar Disorder, she has numerous psychiatric hospitalizations in [place], [place] (2); [facility] (3); [facility]; [place], [place] and [place], [place] (4). She was a 9.41 to [facility] This is patients 5th hospitalization to this facility. To review patient presented as Labile, Manic and has no insight and judgement. She is refusing medications and makes numerous medications for which she does not meet criteria. Reviewed with patient need for compliance with current medication regimen. She was unwilling to take many medications because she is allergic. She reports numerous medications that she is allergic to including [place] which she would benefit from. Many of her example of allergic reactions are not true allergic reactions. VITAL SIGNS: See below. NEW TEST RESULTS: CURRENT MEDICATIONS: See below. MENTAL STATUS EXAMINATION: Patient is a 49-year old female, who is less manic presenting with slower and le ss pressures speech. Speech: Is rapid, flight of ideas, tangential Language skills are good Thought processes including: hypomanic Thought content: racing thoughts Abstract reasoning, and computation: fair Description of associations: hypomanic behaviors Description of abnormal or psychotic thoughts: tangential, mildly hypomanic, flight of ideas Judgment: fair to poor at times Insight: fair to poor at times Orientation: alert and oriented Recent and remote memory: intact Attention span and concentration: fair Language: good Fund of knowledge: Average Mood: Euthymic, she reports that she is mildly hypomanic Affect: flat DIAGNOSES: 1. Bipolar I Disorder, Current Episode, Yahaira ASSESSMENT: Patient is focused on medications, wanting to change from Haldol to Invega Sustenna 234 mg IM which she had on December 21. She reports that the Invega helped with her voices. State she had poor sleep last night. Wants to only have Invega Sustenna and states that Haldol gives her side effects. Reporting that she is vomiting and having diarrhea. Complains that Haldol causes her schizophrenia and reports that she is refusing the medications because it is causing voices in her head. While on Haldol, patient has improved, less manic, less rapid and pressured speech. She is able to communicate/articulate effectively. MANAGEMENT PLAN: Patient is stabilizing improving slowly. TIME SPENT: 20 minutes. Vital Signs Vital Signs Date Time Temp Pulse Resp B/P (MAP) Pulse Ox O2 Delivery O2 Flow Rate FiO2 01/04/20 07:07 98.4 108 16 145/91 (109) 100 Room Air Current Medications Current Medications Medications (Trade) Dose Ordered Sig/Jackelyn Route PRN Reason Start Time Stop Time Status Last Admin Dose Admin Acetaminophen (Tylenol Tab) 650 mg Q6H PRN PO HEADACHE OR DISCOMFORT 12/11/19 19:00 12/28/19 10:13 DC 12/28/19 04:47 Al Hydrox/Mg Hydrox/Simethicone (Mylanta) 30 ml Q4H PRN PO HEARTBURN/INDIGESTION 12/11/19 19:00 01/03/20 12:56 Albuterol Sulfate (Proventil, Ventolin Hfa) 2 puff Q6H PRN INH SHORTNESS OF BREATH 12/11/19 18:00 01/04/20 08:06 Aripiprazole (AbiLIFY) 5 mg QHS PO 12/11/19 21:00 12/11/19 18:00 DC Aripiprazole (AbiLIFY) 5 mg QHS PO 12/12/19 21:00 12/15/19 12:54 DC 12/13/19 21:21 Cariprazine (Vraylar) 3 mg QHS PO 12/15/19 21:00 12/25/19 09:11 DC 12/21/19 20:18 Cetylpyridinium Chloride (Cepacol) 1 karoline Q6H PRN PO SORE THROAT 12/12/19 12:00 01/04/20 08:06 Clonazepam (KlonoPIN) 0.25 mg QAM PO 12/21/19 09:00 01/04/20 08:07 Clonazepam (KlonoPIN) 0.5 mg QAM PO 12/12/19 09:00 12/21/19 09:07 DC 12/21/19 08:21 Clonazepam (KlonoPIN) 0.75 mg QHS PO 12/25/19 21:00 01/03/20 20:15 Clonazepam (KlonoPIN) 1 mg QHS PO 12/11/19 21:00 12/25/19 09:11 DC 12/24/19 20:18 Cyclobenzaprine HCl (Flexeril) 5 mg BIDP PRN PO MUSCLE SPASMS 12/13/19 21:15 01/04/20 08:06 Docusate Sodium (Colace) 100 mg BID PRN PO CONSTIPATION 12/11/19 19:00 12/19/19 21:42 Haloperidol (Haldol) 5 mg BID PO 12/25/19 09:00 01/03/20 08:31 Haloperidol (Haldol) 5 mg Q6HP PRN PO AGITATION 12/28/19 10:15 01/03/20 00:32 Home Med (Med Rec Complete!) ASDIRECTED XX 12/11/19 18:45 12/11/19 18:40 DC Ibuprofen (Advil) 600 mg Q8HP PRN PO PAIN 12/28/19 10:15 01/04/20 06:43 Lidocaine (Lidoderm Patch) 1 patch DAILY PRN TD LOWER BACK PAIN 12/12/19 09:00 01/04/20 08:06 Lorazepam (Ativan) 1 mg BIDP PRN PO ANXIETY/AGITATION 12/16/19 13:45 12/23/19 13:44 DC 12/23/19 04:49 Lorazepam (Ativan) 1 mg BIDP PRN PO ANXIETY/AGITATION 12/23/19 14:15 12/30/19 14:14 DC 12/29/19 21:02 Lorazepam (Ativan) 2 mg STAT STAT PO 12/25/19 11:20 12/25/19 11:22 DC 12/25/19 11:25 Magnesium Hydroxide (Milk Of Magnesia) 30 ml DAILYPRN PRN PO CONSTIPATION 12/11/19 19:00 01/02/20 13:18 Menthol/Methyl Salicylate (Bengay Cream) APPLY TO BILATERAL KNEES ... Q8H PRN TOP KNEE PAIN 12/11/19 19:00 01/04/20 04:45 Miscellaneous (Unresolved Clarification Entry) SEE LABEL COMMENTS DAILY XX 01/01/20 09:00 01/01/20 11:03 DC Nicotine (Nicoderm Cq 21mg) 1 patch DAILY TD 12/12/19 09:00 01/04/20 08:06 Non-Formulary Medication ( See Comment Field Below ) REMOVE LIDODERM PATCH DAILY@21 XX 12/11/19 21:00 01/03/20 20:35 Olanzapine (ZyPREXA ZYDIS) 5 mg Q4HP PRN PO AGITATION 12/14/19 21:15 12/28/19 10:13 DC 12/26/19 08:27 Olanzapine (ZyPREXA ZYDIS) 5 mg QHS PO 12/11/19 21:00 12/12/19 11:49 DC 12/11/19 22:22 Ondansetron HCl (Zofran Odt) 4 mg Q8H PRN PO NAUSEA 12/11/19 19:00 01/04/20 04:15 Paliperidone Palmitate (Invega Sustenna) 234 mg Q30D IM 12/22/19 09:00 12/25/19 09:11 DC 12/22/19 08:23 Phenyleph/Shark Oil/Min Oil/Petrol (Preparation H Ointment) BID PRN TOP hemorroids 01/02/20 10:30 Polyethylene Glycol (Miralax) 1 pkt DAILY PRN PO CONSTIPATION 12/11/19 19:00 01/02/20 09:01 Risperidone (RisperDAL) 1 mg QHS PO 12/20/19 21:00 12/25/19 09:11 DC 12/20/19 20:07 Sucralfate (Carafate Suspension) 1 gm BID PO 12/15/19 21:00 01/04/20 08:06 Sucralfate (Carafate) 1 gm BID PO 12/11/19 21:00 12/15/19 12:59 DC 12/15/19 08:46 Allergies Coded Allergies: Penicillins (Unverified Allergy, Unknown, 12/14/19) diethylene glycol (Unverified Allergy, Unknown, 12/14/19) ALSO CALLED CARBITOL divalproex sodium (Unverified Allergy, Unknown, Unverified reaction. It is SUSPECT, 12/14/19) fluphenazine (Unverified Allergy, Unknown, UNVERIFIED REACTION. IT IS SUSPECT, 12/14/19) lithium (Unverified Allergy, Unknown, UNVERIFIED REACTION. IT IS SUSPECT., 12/14/19) meperidine (Unverified Allergy, Unknown, 12/14/19) metoclopramide (Unverified Allergy, Unknown, 12/14/19) olanzapine (Unverified Allergy, Unknown, 12/14/19) PT CANNOT VERBALIZE ACTUAL REACTION TO MEDICATION, HAS TAKEN PREVIOUS DOSES ON UNIT WITHOUT INCIDENT ranitidine (Unverified Allergy, Unknown, 12/14/19) risperidone (Unverified Allergy, Unknown, Unverified reaction. It is SUSPECT., 12/14/19) sertraline (Unverified Allergy, Unknown, Unverified reaction. It is SUSPECT, 12/14/19) acetaminophen (Verified Adverse Reaction, Unknown, PT HX HEP B, HEP C, 12/11/19) haloperidol (Verified Adverse Reaction, Unknown, makes me go crazy, 12/11/19) uNVERIFIED REACTION. IT IS SUSPECT SANDI MORAN NP Jan 04, 2020 10:32
[2020-01-04 18:14] VITALS: BP 136/86
[2020-01-04] MEDS: MIRALAX *UNIT DOSE* 17GM PACKET PO PRN (23:28)
[2020-01-04] MEDS: PREPARATION H OINTMENT (HEMORRHOID) TOP PRN (23:34)
[2020-01-05] MEDS: ONDANSETRON 4 MG ORAL DISINTEGRATING TAB PO PRN ×2 (02:01→15:07)
[2020-01-05] MEDS: ALBUTEROL 90 MCG/ACT 8GM HFA INHALER INH PRN ×2 (02:53→20:32)
[2020-01-05 07:09] VITALS: BP 145/73
[2020-01-05] MEDS: haloperidoL 5 MG TAB PO SCH ×2 (09:00→21:00)
[2020-01-05] MEDS: ANALGESIC BALM CRM 120 GM TOP PRN ×2 (09:14→21:39)
[2020-01-05] MEDS: DOCUSATE SODIUM 100 MG CAP PO PRN (09:15)
[2020-01-05] MEDS: clonazePAM 0.5 MG TAB PO SCH ×2 (09:15→20:32)
[2020-01-05] MEDS: SUCRALFATE SUSP 1GM/10ML UD PO SCH ×2 (09:15→20:32)
[2020-01-05] MEDS: CEPACOL LOZENGE PO PRN ×2 (09:16→21:40)
[2020-01-05] MEDS: NICOTINE 21MG/24HR 1 EA TRANSDERMAL TD SCH (09:16)
[2020-01-05] MEDS: CYCLOBENZAPRINE 5MG TABLET PO PRN (09:16)
[2020-01-05] MEDS: MIRALAX *UNIT DOSE* 17GM PACKET PO PRN (15:07)
[2020-01-05 18:00] VITALS: BP 159/83
[2020-01-05] MEDS ORDERED: LORazepam 1 MG TAB PO ONE (18:30)
[2020-01-05] MEDS: ACETAMINOPHEN TAB 650MG DOSE (2X325MG) PO PRN (19:01)
[2020-01-06] MEDS: PREPARATION H OINTMENT (HEMORRHOID) TOP PRN (00:06)
[2020-01-06] MEDS: ACETAMINOPHEN TAB 650MG DOSE (2X325MG) PO PRN ×2 (03:14→18:10)
[2020-01-06] MEDS: CYCLOBENZAPRINE 5MG TABLET PO PRN (05:10)
[2020-01-06] MEDS: haloperidoL 5 MG TAB PO SCH ×2 (07:48→21:00)
[2020-01-06] MEDS: ANALGESIC BALM CRM 120 GM TOP PRN ×2 (07:52→20:47)
[2020-01-06] MEDS: DOCUSATE SODIUM 100 MG CAP PO PRN (07:52)
[2020-01-06] MEDS: MIRALAX *UNIT DOSE* 17GM PACKET PO PRN (07:53)
[2020-01-06] MEDS: SUCRALFATE SUSP 1GM/10ML UD PO SCH ×2 (08:48→20:46)
[2020-01-06] MEDS: NICOTINE 21MG/24HR 1 EA TRANSDERMAL TD SCH (08:49)
[2020-01-06] MEDS: clonazePAM 0.5 MG TAB PO SCH ×2 (08:49→20:46)
[2020-01-06] MEDS: LIDOCAINE 5% (LIDODERM) PATCH TD PRN (11:26)
[2020-01-06] MEDS: ONDANSETRON 4 MG ORAL DISINTEGRATING TAB PO PRN (11:27)
[2020-01-06] MEDS ORDERED: LORazepam 1 MG TAB PO ONE (13:30)
[2020-01-06 18:00] VITALS: BP 145/83
[2020-01-06] MEDS: CEPACOL LOZENGE PO PRN (18:10)
[2020-01-06] MEDS: PILL CUTTER 1 EACH XX PRN (20:45)
[2020-01-07] MEDS: ACETAMINOPHEN TAB 650MG DOSE (2X325MG) PO PRN ×3 (00:18→15:00)
[2020-01-07] MEDS: ALBUTEROL 90 MCG/ACT 8GM HFA INHALER INH PRN ×3 (00:18→14:58)
[2020-01-07] MEDS: CYCLOBENZAPRINE 5MG TABLET PO PRN (00:19)
[2020-01-07] MEDS: CEPACOL LOZENGE PO PRN ×2 (00:19→14:59)
[2020-01-07] MEDS: haloperidoL 5 MG TAB PO PRN (04:28)
[2020-01-07] MEDS: PREPARATION H OINTMENT (HEMORRHOID) TOP PRN (05:50)
[2020-01-07] MEDS: ANALGESIC BALM CRM 120 GM TOP PRN ×2 (05:53→14:59)
[2020-01-07 06:13] VITALS: BP 143/87
[2020-01-07] MEDS: MIRALAX *UNIT DOSE* 17GM PACKET PO PRN (07:17)
[2020-01-07] MEDS: DOCUSATE SODIUM 100 MG CAP PO PRN (07:17)
[2020-01-07] MEDS: haloperidoL 5 MG TAB PO SCH ×2 (08:33→20:33)
[2020-01-07] MEDS: clonazePAM 0.5 MG TAB PO SCH ×2 (08:35→20:35)
[2020-01-07] MEDS: SUCRALFATE SUSP 1GM/10ML UD PO SCH ×2 (08:36→20:35)
[2020-01-07] MEDS: NICOTINE 21MG/24HR 1 EA TRANSDERMAL TD SCH (08:37)
[2020-01-07] MEDS: ONDANSETRON 4 MG ORAL DISINTEGRATING TAB PO PRN (12:03)
[2020-01-07] MEDS: LIDOCAINE 5% (LIDODERM) PATCH TD PRN (12:05)
--- NOTE | 2020-01-07 14:23 | MHIPNPDOC ---
[facility] [place] Progress Note Progress Note DATE OF SERVICE: 01/07/20 HISTORY: Patient is a 49 year old Single, Disabled, Female who was brought to [facility] for Bizarre, Manic and Delusional Behaviors. She is diagnosed Bipolar Disorder, she has numerous psychiatric hospitalizations in [place], [place] (2); [facility]; [facility] (3); [facility]; [facility], [place], [place] and [place], [place] (4). She was a 9.41 to [facility] This is patients 5th hospitalization to this facility. To review patient presented as Labile, Manic and has no insight and judgement. She is refusing medications and makes numerous medications for which she does not meet criteria. Reviewed with patient need for compliance with current medication regimen. She was unwilling to take many medications because she is allergic. She reports numerous medications that she is allergic to including [place] which she would benefit from. Many of her example of allergic reactions are not true allergic reactions. VITAL SIGNS: See below. NEW TEST RESULTS: CURRENT MEDICATIONS: See below. MMENTAL STATUS EXAMINATION: Patient is a 49-year old female, who is admitted to [facility] on day 24. She appears her stated age. dressed bizarrely. Her hospital scrub top is wet, she states that because she was not allowed to wash her clothes, she washed them in the toilet. Her hygiene and grooming is good. She makes good eye contact. She has not psychomotor agitation or retardation Speech: Is less rapid, less pressured but still has flight of ideas and tangential. Language skills are good Thought processes including: mostly linear but at times, scattered, some flight of ifeas Thought content: Hypomanic symptoms, racing thoughts, Abstract reasoning, and computation: fair Description of associations: bizarre thinking washing her cl othes in the toilet. State that she is using the bleached toilet water to wash her clothe. On a side note, the clothes do not smell like bleach, they have the smell of ammonia as if she had been washing her clothes in urine. Description of abnormal or psychotic thoughts: she is not responding to internal stimuli Judgment: poor Insight: poor Orientation: alert and oriented Recent and remote memory: intact Attention span and concentration: fair Language: good Fund of knowledge: average Mood: hypomanic/mildly labile. Affect: flat DIAGNOSES: 1. Bipolar I Disorder, Manic ASSESSMENT: Patient is presenting with severely poor insight and judgment, although less manic. She reports depression and anxiety , denies a/v hallucinations, denies delusional thoughts, paranoia, suspicousness. Due to her bizarre behaviors she is not safe to be in the community. MANAGEMENT PLAN: Continue medications. Continue with treatment over objection. Patient is not stable for discharge TIME SPENT: 20 minutes. Vital Signs Vital Signs Date Time Temp Pulse Resp B/P (MAP) Pulse Ox O2 Delivery O2 Flow Rate FiO2 01/07/20 06:13 97.6 105 18 143/87 (105) 100 Room Air Current Medications Current Medications Medications (Trade) Dose Ordered Sig/Jackelyn Route PRN Reason Start Time Stop Time Status Last Admin Dose Admin Acetaminophen (Tylenol Tab) 650 mg Q6H PRN PO HEADACHE OR DISCOMFORT 12/11/19 19:00 12/28/19 10:13 DC 12/28/19 04:47 Acetaminophen (Tylenol Tab) 650 mg Q6HP PRN PO PAIN / FEVER 01/05/20 18:45 01/07/20 07:10 Al Hydrox/Mg Hydrox/Simethicone (Mylanta) 30 ml Q4H PRN PO HEARTBURN/INDIGESTION 12/11/19 19:00 01/03/20 12:56 Albuterol Sulfate (Proventil, Ventolin Hfa) 2 puff Q6H PRN INH SHORTNESS OF BREATH 12/11/19 18:00 01/07/20 07:09 Aripiprazole (AbiLIFY) 5 mg QHS PO 12/11/19 21:00 12/11/19 18:00 DC Aripiprazole (AbiLIFY) 5 mg QHS PO 12/12/19 21:00 12/15/19 12:54 DC 12/13/19 21:21 Cariprazine (Vraylar) 3 mg QHS PO 12/15/19 21:00 12/25/19 09:11 DC 12/21/19 20:18 Cetylpyridinium Chloride (Cepacol) 1 karoline Q6H PRN PO SORE THROAT 12/12/19 12:00 01/07/20 00:19 Clonazepam (KlonoPIN) 0.25 mg QAM PO 12/21/19 09:00 01/07/20 08:35 Clonazepam (KlonoPIN) 0.5 mg QAM PO 12/12/19 09:00 12/21/19 09:07 DC 12/21/19 08:21 Clonazepam (KlonoPIN) 0.75 mg QHS PO 12/25/19 21:00 01/06/20 20:46 Clonazepam (KlonoPIN) 1 mg QHS PO 12/11/19 21:00 12/25/19 09:11 DC 12/24/19 20:18 Cyclobenzaprine HCl (Flexeril) 5 mg BIDP PRN PO MUSCLE SPASMS 12/13/19 21:15 01/07/20 00:19 Docusate Sodium (Colace) 100 mg BID PRN PO CONSTIPATION 12/11/19 19:00 01/07/20 07:17 Haloperidol (Haldol) 5 mg BID PO 12/25/19 09:00 01/03/20 08:31 Haloperidol (Haldol) 5 mg Q6HP PRN PO AGITATION 12/28/19 10:15 01/07/20 04:28 Home Med (Med Rec Complete!) ASDIRECTED XX 12/11/19 18:45 12/11/19 18:40 DC Ibuprofen (Advil) 600 mg Q8HP PRN PO PAIN 12/28/19 10:15 01/04/20 10:46 DC 01/04/20 06:43 Lidocaine (Lidoderm Patch) 1 patch DAILY PRN TD LOWER BACK PAIN 12/12/19 09:00 01/07/20 12:05 Lorazepam (Ativan) 1 mg BIDP PRN PO ANXIETY/AGITATION 12/16/19 13:45 12/23/19 13:44 DC 12/23/19 04:49 Lorazepam (Ativan) 1 mg BIDP PRN PO ANXIETY/AGITATION 12/23/19 14:15 12/30/19 14:14 DC 12/29/19 21:02 Lorazepam (Ativan) 2 mg STAT STAT PO 12/25/19 11:20 12/25/19 11:22 DC 12/25/19 11:25 Magnesium Hydroxide (Milk Of Magnesia) 30 ml DAILYPRN PRN PO CONSTIPATION 12/11/19 19:00 01/02/20 13:18 Menthol/Methyl Salicylate (Bengay Cream) APPLY TO BILATERAL KNEES ... Q8H PRN TOP KNEE PAIN 12/11/19 19:00 01/07/20 05:53 Miscellaneous (Unresolved Clarification Entry) SEE LABEL COMMENTS DAILY XX 01/06/20 09:00 01/06/20 09:42 DC Miscellaneous (Unresolved Clarification Entry) SEE LABEL COMMENTS DAILY XX 01/01/20 09:00 01/01/20 11:03 DC Nicotine (Nicoderm Cq 21mg) 1 patch DAILY TD 12/12/19 09:00 01/07/20 08:37 Non-Formulary Medication ( See Comment Field Below ) REMOVE LIDODERM PATCH DAILY@21 XX 12/11/19 21:00 01/05/20 20:34 Olanzapine (ZyPREXA ZYDIS) 5 mg Q4HP PRN PO AGITATION 12/14/19 21:15 12/28/19 10:13 DC 12/26/19 08:27 Olanzapine (ZyPREXA ZYDIS) 5 mg QHS PO 12/11/19 21:00 12/12/19 11:49 DC 12/11/19 22:22 Ondansetron HCl (Zofran Odt) 4 mg Q8H PRN PO NAUSEA 12/11/19 19:00 01/07/20 12:03 Paliperidone Palmitate (Invega Sustenna) 234 mg Q30D IM 12/22/19 09:00 12/25/19 09:11 DC 12/22/19 08:23 Phenyleph/Shark Oil/Min Oil/Petrol (Preparation H Ointment) BID PRN TOP hemorroids 01/02/20 10:30 01/07/20 05:50 Polyethylene Glycol (Miralax) 1 pkt DAILY PRN PO CONSTIPATION 12/11/19 19:00 01/07/20 07:17 Risperidone (RisperDAL) 1 mg QHS PO 12/20/19 21:00 12/25/19 09:11 DC 12/20/19 20:07 Sucralfate (Carafate Suspension) 1 gm BID PO 12/15/19 21:00 01/07/20 08:36 Sucralfate (Carafate) 1 gm BID PO 12/11/19 21:00 12/15/19 12:59 DC 12/15/19 08:46 Allergies Coded Allergies: Penicillins (Unverified Allergy, Unknown, 12/14/19) diethylene glycol (Unverified Allergy, Unknown, 12/14/19) ALSO CALLED CARBITOL divalproex sodium (Unverified Allergy, Unknown, Unverified reaction. It is SUSPECT, 12/14/19) fluphenazine (Unverified Allergy, Unknown, UNVERIFIED REACTION. IT IS SUSPECT, 12/14/19) lithium (Unverified Allergy, Unknown, UNVERIFIED REACTION. IT IS SUSPECT., 12/14/19) meperidine (Unverified Allergy, Unknown, 12/14/19) metoclopramide (Unverified Allergy, Unknown, 12/14/19) olanzapine (Unverified Allergy, Unknown, 12/14/19) PT CANNOT VERBALIZE ACTUAL REACTION TO MEDICATION, HAS TAKEN PREVIOUS DOSES ON UNIT WITHOUT INCIDENT ranitidine (Unverified Allergy, Unknown, 12/14/19) risperidone (Unverified Allergy, Unknown, Unverified reaction. It is SUSPECT., 12/14/19) sertraline (Unverified Allergy, Unknown, Unverified reaction. It is SUSPEC T, 12/14/19) acetaminophen (Verified Adverse Reaction, Unknown, PT HX HEP B, HEP C, 12/11/19) haloperidol (Verified Adverse Reaction, Unknown, makes me go crazy, 12/11/19) uNVERIFIED REACTION. IT IS SUSPECT SANDI MORAN NP Jan 07, 2020 14:23
--- NOTE | 2020-01-07 14:31 | MHIPN ---
DATE: 12/18/2019 Patient was admitted 12/10/2019 for bizarre and delusional behaviors. She was an involuntary transport to [facility] by the [facility]'s Department. She had suicidal and homicidal ideation. She presented with kevin and extreme lability. SUBJECTIVE: The patient today wanted the urban and regional planner's number, as "Dmitry" wanted to call her. I provided the patient a post-it note and asked the patient to give urban and regional planner Dmitry's number, and that she would call him at her convenience. Patient stated that Dmitry is upset if she is not Invega and demands that she gets this new medication. Patient had reported in an earlier interview that she does not know if she has had Invega and does not know if she will react to it. Patient has refused two other antipsychotic medications, reporting that she is allergic to these medications. She is also stating that she demands Invega, but she reports Risperdal is an allergy. She is observed to be extremely labile, walking very aggressively back and forth from her bedroom to the phone. She states to this provider, "I don't want to talk to you. I'm taking you to court," when I attempted to have an interview with her. OBJECTIVE: Patient is a 49-year-old single, disabled, undomiciled female who has had multiple admissions to psychiatric hospitals from [place], [place], [place], to [place]. She reports that this is her fourth hospitalization at [facility]. She has also had a hospitalization at a state hospital in [place]. She is alert and oriented to person, place, time but not to situation. She is disheveled. Has fair hygiene and grooming. She has a hypervigilant gaze. Her speech is loud, pressured, rapid, tangential, and nonsensible at times. She denies suicidal or homicidal ideation. She denies depression and anxiety. She is moderately agitated. She is mildly paranoid about medications. She is delusional about their side effects and has an inordinate belief that most of the medications have adverse effects on her. She reports that many medications cause her a stomachache or headache. She ruminates and appears to have racing thoughts based on her speech. Her cognitive functioning is congruent with her education. Her memory is intact. Patient presents with poor boundaries with staff and patients. At times she is staff splitting. She demands things that are prohibits by the hospital, and she continues to press the nurses for her things. Her memory is intact. Insight and judgment are severely poor. ASSESSMENT AND PLAN: Patient is not stable for discharge. She demonstrates, again, poor insight and refuses to take medications that will stabilize her. On two occasions she reported that she would take Abilify. She refused to take that, and the medications was changed, because she stated that she wanted Vraylar. She has refused to take that. She has been placed on [facility] legal status, and we intend to pursue treatment over objection. She is not insightful, as she lacks the capacity to understand that she is not well and she is not stabilizing without her participation in the medication management. Patient will most likely need further hospitalization at a [facility] hospital. NAUN
[2020-01-07 16:52] VITALS: BP 140/82
[2020-01-07] MEDS: PILL CUTTER 1 EACH XX PRN (20:35)
[2020-01-08] MEDS: CEPACOL LOZENGE PO PRN ×2 (00:24→10:28)
[2020-01-08] MEDS: ALBUTEROL 90 MCG/ACT 8GM HFA INHALER INH PRN ×3 (00:24→20:28)
[2020-01-08] MEDS: ACETAMINOPHEN TAB 650MG DOSE (2X325MG) PO PRN ×3 (00:25→18:41)
[2020-01-08] MEDS: ANALGESIC BALM CRM 120 GM TOP PRN ×3 (00:25→20:31)
[2020-01-08] MEDS: CYCLOBENZAPRINE 5MG TABLET PO PRN ×2 (00:25→18:41)
[2020-01-08] MEDS: PREPARATION H OINTMENT (HEMORRHOID) TOP PRN (00:26)
[2020-01-08 06:40] VITALS: BP 150/86
[2020-01-08] MEDS: NICOTINE 21MG/24HR 1 EA TRANSDERMAL TD SCH (08:50)
[2020-01-08] MEDS: SUCRALFATE SUSP 1GM/10ML UD PO SCH ×2 (08:50→20:29)
[2020-01-08] MEDS: PILL CUTTER 1 EACH XX PRN (08:50)
[2020-01-08] MEDS: haloperidoL 5 MG TAB PO SCH ×2 (08:51→20:33)
[2020-01-08] MEDS: clonazePAM 0.5 MG TAB PO SCH ×2 (08:51→20:29)
--- NOTE | 2020-01-08 09:48 | MHIPNPDOC ---
[facility] Progress Note Progress Note DATE OF SERVICE: 01/08/20 HISTORY: This is Day 30 for this patient's admission. To Review the Patient is a 49 year old Single, Disabled, Female who was brought to [facility] for Bizarre, Manic and Delusional Behaviors. She is diagnosed Bipolar Disorder, she has numerous psychiatric hospitalizations in [place], [place] (2); [facility]; [facility] (3); [facility]; [facility], [place], [place] and [place], [place] (4). She was a 9.41 to [facility] This is patients 5th hospitalization to this facility. To review patient presented as Labile, Manic and has no insight and judgement. She is refusing medications and makes numerous medications for which she does not meet criteria. Reviewed with patient need for compliance with current medication regimen. She was unwilling to take many medications because she is allergic. She reports numerous medications that she is allergic to including [place] which she would benefit from. Many of her example of allergic reactions are not true allergic reactions. VITAL SIGNS: See below. NEW TEST RESULTS: CURRENT MEDICATIONS: See below. MMENTAL STATUS EXAMINATION: Patient is a 49-year old female, who is admitted to [facility] on day 24. She appears her stated age. dressed bizarrely. Her hygiene and grooming is fair. She makes intermittent eye contact. She has not psychomotor agitation or retardation Speech: Is rapid fire, with flight of ideas Language skills are good Thought processes including: mostly linear but at times, scattered, some flight of ifeas Thought content: Hypomanic symptoms, racing thoughts, Abstract reasoning, and computation: limited due to kevin Description of associations: bizarre thinking/scattered thoughts Description of abnormal or psychotic thoughts: she is not responding to internal stimuli Judgment: poor Insight: poor Orientation: alert and oriented Recent and remote memory: intact Attention span and concentration: fair Language: good Fund of knowledge: average Mood: hypomanic labile. Affect: flat DIAGNOSES: 1. Bipolar I Disorder, Manic ASSESSMENT: Patient presents with rapid fire speech, flight of ideas. She is very focused on Benzodiazepines and states that she cannot take anymore Haldol. Her Haldol level is 1, subtherapeutic. She is using the plastic insert of a tampon to mimic smoking, she states that she has trouble breathing, but she again has rapid fire speech, she is not observed with dyspnea, shortness of breathe or labored breathing. She states that she cannot take Haldol and wants both Haldol and Invega out of her system, wants blood work to make sure that she does not have it. Patient is linear but has racing thoughts/flight of ideas, rumination. Talking about how the loss of rock stars are depressing her. She is more manic today than she had been because she has been refusing Haldol for several days. Patient is wearing her underwear o the outside of her scrub pants. "I will feel better if I had Albuterol, Cephachol, Ativan, and Compression Socks" "I used this tampon and just oil and vinegar, I just want to do the Suicide Walk, and then Kevin came into the room but he had the cigarettes, the hospital lost my shirt, and I am a soul mate. I have a lot of issues, but now I have tissues. I don't need drugs, I have the CBD oil, I have legal marijuana and home grown, I get that with my card for my back pain, bipolar and look I can taken this and make a ring with it." "I am getting poor legal service, by [facility] [employer] [facility]." " If you can't get that order, call Dr. Park and see if she gave that to me, I need to put this in my underwear, I was told I can have this shirt, I don't want anyone looking at my butt, I don't want anyone looking at my butt, its black. I don't want the Haldol, I just don't want to go into a hole, I will lose my soul. What should I do with my hair, should I leave it down or up? I need an Ativan because I feel like I have a hole in my head, I feel like I am strung ou t, I want to look normal, I want to act normal, I am glad I am alive, I feel like I am drugged up, the bed is not made" Patient continuing to refuse Haldol states that she needs Ativan because she received Ativan over the weekend by the covering psychiatrist. MANAGEMENT PLAN: Will continue the medications. Treatment Over Objection is maintained due to her severe poor insight and judgement, disorganized/scattered thoughts. She will be discharged to home if she stabilizes or [facility]. TIME SPENT: 20 minutes. Vital Signs Vital Signs Date Time Temp Pulse Resp B/P (MAP) Pulse Ox O2 Delivery O2 Flow Rate FiO2 01/08/20 06:40 97.7 105 20 150/86 (107) 01/07/20 06:13 100 Room Air Current Medications Current Medications Medications (Trade) Dose Ordered Sig/Jackelyn Route PRN Reason Start Time Stop Time Status Last Admin Dose Admin Acetaminophen (Tylenol Tab) 650 mg Q6H PRN PO HEADACHE OR DISCOMFORT 12/11/19 19:00 12/28/19 10:13 DC 12/28/19 04:47 Acetaminophen (Tylenol Tab) 650 mg Q6HP PRN PO PAIN / FEVER 01/05/20 18:45 01/08/20 09:18 Al Hydrox/Mg Hydrox/Simethicone (Mylanta) 30 ml Q4H PRN PO HEARTBURN/INDIGESTION 12/11/19 19:00 01/03/20 12:56 Albuterol Sulfate (Proventil, Ventolin Hfa) 2 puff Q6H PRN INH SHORTNESS OF BREATH 12/11/19 18:00 01/08/20 00:24 Aripiprazole (AbiLIFY) 5 mg QHS PO 12/11/19 21:00 12/11/19 18:00 DC Aripiprazole (AbiLIFY) 5 mg QHS PO 12/12/19 21:00 12/15/19 12:54 DC 12/13/19 21:21 Cariprazine (Vraylar) 3 mg QHS PO 12/15/19 21:00 12/25/19 09:11 DC 12/21/19 20:18 Cetylpyridinium Chloride (Cepacol) 1 karoline Q6H PRN PO SORE THROAT 12/12/19 12:00 01/08/20 00:24 Clonazepam (KlonoPIN) 0.25 mg QAM PO 12/21/19 09:00 01/08/20 08:51 Clonazepam (KlonoPIN) 0.5 mg QAM PO 12/12/19 09:00 12/21/19 09:07 DC 12/21/19 08:21 Clonazepam (KlonoPIN) 0.75 mg QHS PO 12/25/19 21:00 01/07/20 20:35 Clonazepam (KlonoPIN) 1 mg QHS PO 12/11/19 21:00 12/25/19 09:11 DC 12/24/19 20:18 Cyclobenzaprine HCl (Flexeril) 5 mg BIDP PRN PO MUSCLE SPASMS 12/13/19 21:15 01/08/20 00:25 Docusate Sodium (Colace) 100 mg BID PRN PO CONSTIPATION 12/11/19 19:00 01/07/20 07:17 Haloperidol (Haldol) 5 mg BID PO 12/25/19 09:00 01/03/20 08:31 Haloperidol (Haldol) 5 mg Q6HP PRN PO AGITATION 12/28/19 10:15 01/07/20 04:28 Home Med (Med Rec Complete!) ASDIRECTED XX 12/11/19 18:45 12/11/19 18:40 DC Ibuprofen (Advil) 600 mg Q8HP PRN PO PAIN 12/28/19 10:15 01/04/20 10:46 DC 01/04/20 06:43 Lidocaine (Lidoderm Patch) 1 patch DAILY PRN TD LOWER BACK PAIN 12/12/19 09:00 01/07/20 12:05 Lorazepam (Ativan) 1 mg BIDP PRN PO ANXIETY/AGITATION 12/16/19 13:45 12/23/19 13:44 DC 12/23/19 04:49 Lorazepam (Ativan) 1 mg BIDP PRN PO ANXIETY/AGITATION 12/23/19 14:15 12/30/19 14:14 DC 12/29/19 21:02 Lorazepam (Ativan) 2 mg STAT STAT PO 12/25/19 11:20 12/25/19 11:22 DC 12/25/19 11:25 Magnesium Hydroxide (Milk Of Magnesia) 30 ml DAILYPRN PRN PO CONSTIPATION 12/11/19 19:00 01/02/20 13:18 Menthol/Methyl Salicylate (Bengay Cream) APPLY TO BILATERAL KNEES ... Q8H PRN TOP KNEE PAIN 12/11/19 19:00 01/08/20 00:25 Miscellaneous (Unresolved Clarification Entry) SEE LABEL COMMENTS DAILY XX 01/06/20 09:00 01/06/20 09:42 DC Miscellaneous (Unresolved Clarification Entry) SEE LABEL COMMENTS DAILY XX 01/01/20 09:00 01/01/20 11:03 DC Nicotine (Nicoderm Cq 21mg) 1 patch DAILY TD 12/12/19 09:00 01/08/20 08:50 Non-Formulary Medication ( See Comment Field Below ) REMOVE LIDODERM PATCH DAILY@21 XX 12/11/19 21:00 01/07/20 20:33 Olanzapine (ZyPREXA ZYDIS) 5 mg Q4HP PRN PO AGITATION 12/14/19 21:15 12/28/19 10:13 DC 12/26/19 08:27 Olanzapine (ZyPREXA ZYDIS) 5 mg QHS PO 12/11/19 21:00 12/12/19 11:49 DC 12/11/19 22:22 Ondansetron HCl (Zofran Odt) 4 mg Q8H PRN PO NAUSEA 12/11/19 19:00 01/07/20 12:03 Paliperidone Palmitate (Invega Sustenna) 234 mg Q30D IM 12/22/19 09:00 12/25/19 09:11 DC 12/22/19 08:23 Phenyleph/Shark Oil/Min Oil/Petrol (Preparation H Ointment) BID PRN TOP hemorroids 01/02/20 10:30 01/08/20 00:26 Polyethylene Glycol (Miralax) 1 pkt DAILY PRN PO CONSTIPATION 12/11/19 19:00 01/07/20 07:17 Risperidone (RisperDAL) 1 mg QHS PO 12/20/19 21:00 12/25/19 09:11 DC 12/20/19 20:07 Sucralfate (Carafate Suspension) 1 gm BID PO 12/15/19 21:00 01/08/20 08:50 Sucralfate (Carafate) 1 gm BID PO 12/11/19 21:00 12/15/19 12:59 DC 12/15/19 08:46 Allergies Coded Allergies: Penicillins (Unverified Allergy, Unknown, 12/14/19) diethylene glycol (Unverified Allergy, Unknown, 12/14/19) ALSO CALLED CARBITOL divalproex sodium (Unverified Allergy, Unknown, Unverified reaction. It is SUSPECT, 12/14/19) fluphenazine (Unverified Allergy, Unknown, UNVERIFIED REACTION. IT IS SUSPECT, 12/14/19) lithium (Unverified Allergy, Unknown, UNVERIFIED REACTION. IT IS SUSPECT., 12/14/19) meperidine (Unverified Allergy, Unknown, 12/14/19) metoclopramide (Unverified Allergy, Unknown, 12/14/19) olanzapine (Unverified Allergy, Unknown, 12/14/19) PT CANNOT VERBALIZE ACTUAL REACTION TO MEDICATION, HAS TAKEN PREVIOUS DOSES ON UNIT WITHOUT INCIDENT ranitidine (Unverified Allergy, Unknown, 12/14/19) risperidone (Unverified Allergy, Unknown, Unverified reaction. It is SUSPECT., 12/14/19) sertraline (Unverified Allergy, Unknown, Unverified reaction. It is SUSPECT, 12/14/19) acetaminophen (Verified Adverse Reaction, Unknown, PT HX HEP B, HEP C, 12/11/19) haloperidol (Verified Adverse Reaction, Unknown, makes me go crazy, 12/11/19) uNVERIFIED REACTION. IT IS SUSPECT SANDI MORAN NP Jan 08, 2020 09:48
[2020-01-08] MEDS ORDERED: LORazepam 1 MG TAB PO ONE (10:30)
[2020-01-08] MEDS: ONDANSETRON 4 MG ORAL DISINTEGRATING TAB PO PRN (15:13)
[2020-01-08 16:28] VITALS: BP 136/94
[2020-01-08] MEDS: MIRALAX *UNIT DOSE* 17GM PACKET PO PRN (18:41)
[2020-01-09] MEDS: CEPACOL LOZENGE PO PRN ×3 (04:43→23:50)
[2020-01-09 06:23] VITALS: BP 143/89
[2020-01-09] MEDS: haloperidoL 5 MG TAB PO SCH ×2 (09:00→20:43)
[2020-01-09] MEDS: PILL CUTTER 1 EACH XX PRN (09:55)
[2020-01-09] MEDS: clonazePAM 0.5 MG TAB PO SCH ×2 (09:55→20:40)
[2020-01-09] MEDS: NICOTINE 21MG/24HR 1 EA TRANSDERMAL TD SCH (09:56)
[2020-01-09] MEDS: SUCRALFATE SUSP 1GM/10ML UD PO SCH ×2 (09:56→20:40)
[2020-01-09] MEDS: ANALGESIC BALM CRM 120 GM TOP PRN ×2 (09:58→20:39)
[2020-01-09] MEDS: PREPARATION H OINTMENT (HEMORRHOID) TOP PRN (09:58)
[2020-01-09] MEDS: LIDOCAINE 5% (LIDODERM) PATCH TD PRN (10:00)
[2020-01-09] MEDS: CYCLOBENZAPRINE 5MG TABLET PO PRN ×2 (10:04→20:39)
[2020-01-09] MEDS ORDERED: TOPIRAMATE (TopAMAX) 100 MG TAB PO ONE (12:30)
--- NOTE | 2020-01-09 12:37 | MHIPNPDOC ---
[facility] Progress Note Progress Note DATE OF SERVICE: 01/09/20 HISTORY: This is Day 31 for this patient's admission. To Review the Patient is a 49 year old Single, Disabled, Female who was brought to [facility] for Bizarre, Manic and Delusional Behaviors. She is diagnosed Bipolar Disorder, she has numerous psychiatric hospitalizations. VITAL SIGNS: See below. NEW TEST RESULTS: CURRENT MEDICATIONS: See below. MMENTAL STATUS EXAMINATION: Patient is a 49-year old female, who is admitted to [facility] for bizarre and delusional behaviors in the community. She appears her stated age. Her hygiene and grooming is fair. She makes good eye contact. She has not psychomotor agitation or retardation. Speech: Is fast, with flight of ideas Language skills are good Thought processes including: mostly linear but at times, scattered, some flight of ifeas Thought content: Hypomanic symptoms, racing thoughts Abstract reasoning, and computation: limited due to kevin Description of associations: mild scattered thoughts/disorganized thinking Description of abnormal or psychotic thoughts: she is not responding to internal stimuli Judgment: poor Insight: poor Orientation: alert and oriented Recent and remote memory: intact Attention span and concentration: fair Language: good Fund of knowledge: average Mood: flat/mildly depressed. Affect: flat DIAGNOSES: 1. Bipolar I Disorder, Manic ASSESSMENT: Patient presents with fast speech, mild flight of ideas. She appears to be cycling from hypomania to depression within the past 24 hours. She is very focused on medications again today, requesting Ativan. She also reports a migraine. She is observed to be staff splitting, reporting that she does not like one of the safety aides, calling him several derogatory names. Have reinforced with the patient that this is not tolerated. MANAGEMENT PLAN: Will continue the medications. Treatment Over Objection is maintained due to her severe poor insight and judgement, disorganized/scattered thoughts. She will be discharged to home if she stabilizes or will be transferred to [facility] for further hospitalization. She is agreeable to [facility] today. TIME SPENT: 20 minutes. Vital Signs Vital Signs Date Time Temp Pulse Resp B/P (MAP) Pulse Ox O2 Delivery O2 Flow Rate FiO2 01/09/20 06:23 97.2 109 18 143/89 (107) 01/07/20 06:13 100 Room Air Current Medications Current Medications Medications (Trade) Dose Ordered Sig/Jackelyn Route PRN Reason Start Time Stop Time Status Last Admin Dose Admin Acetaminophen (Tylenol Tab) 650 mg Q6H PRN PO HEADACHE OR DISCOMFORT 12/11/19 19:00 12/28/19 10:13 DC 12/28/19 04:47 Acetaminophen (Tylenol Tab) 650 mg Q6HP PRN PO PAIN / FEVER 01/05/20 18:45 01/08/20 18:41 Al Hydrox/Mg Hydrox/Simethicone (Mylanta) 30 ml Q4H PRN PO HEARTBURN/INDIGESTION 12/11/19 19:00 01/03/20 12:56 Albuterol Sulfate (Proventil, Ventolin Hfa) 2 puff Q6H PRN INH SHORTNESS OF BREATH 12/11/19 18:00 01/08/20 20:28 Aripiprazole (AbiLIFY) 5 mg QHS PO 12/11/19 21:00 12/11/19 18:00 DC Aripiprazole (AbiLIFY) 5 mg QHS PO 12/12/19 21:00 12/15/19 12:54 DC 12/13/19 21:21 Cariprazine (Vraylar) 3 mg QHS PO 12/15/19 21:00 12/25/19 09:11 DC 12/21/19 20:18 Cetylpyridinium Chloride (Cepacol) 1 karoline Q6H PRN PO SORE THROAT 12/12/19 12:00 01/09/20 04:43 Clonazepam (KlonoPIN) 0.25 mg QAM PO 12/21/19 09:00 01/09/20 09:55 Clonazepam (KlonoPIN) 0.5 mg QAM PO 12/12/19 09:00 12/21/19 09:07 DC 12/21/19 08:21 Clonazepam (KlonoPIN) 0.75 mg QHS PO 12/25/19 21:00 01/08/20 20:29 Clonazepam (KlonoPIN) 1 mg QHS PO 12/11/19 21:00 12/25/19 09:11 DC 12/24/19 20:18 Cyclobenzaprine HCl (Flexeril) 5 mg BIDP PRN PO MUSCLE SPASMS 12/13/19 21:15 01/09/20 10:04 Docusate Sodium (Colace) 100 mg BID PRN PO CONSTIPATION 12/11/19 19:00 01/07/20 07:17 Haloperidol (Haldol) 5 mg BID PO 12/25/19 09:00 01/03/20 08:31 Haloperidol (Haldol) 5 mg Q6HP PRN PO AGITATION 12/28/19 10:15 01/07/20 04:28 Home Med (Med Rec Complete!) ASDIRECTED XX 12/11/19 18:45 12/11/19 18:40 DC Ibuprofen (Advil) 600 mg Q8HP PRN PO PAIN 12/28/19 10:15 01/04/20 10:46 DC 01/04/20 06:43 Lidocaine (Lidoderm Patch) 1 patch DAILY PRN TD LOWER BACK PAIN 12/12/19 09:00 01/09/20 10:00 Lorazepam (Ativan) 1 mg BIDP PRN PO ANXIETY/AGITATION 12/16/19 13:45 12/23/19 13:44 DC 12/23/19 04:49 Lorazepam (Ativan) 1 mg BIDP PRN PO ANXIETY/AGITATION 12/23/19 14:15 12/30/19 14:14 DC 12/29/19 21:02 Lorazepam (Ativan) 2 mg STAT STAT PO 12/25/19 11:20 12/25/19 11:22 DC 12/25/19 11:25 Magnesium Hydroxide (Milk Of Magnesia) 30 ml DAILYPRN PRN PO CONSTIPATION 12/11/19 19:00 01/02/20 13:18 Menthol/Methyl Salicylate (Bengay Cream) APPLY TO BILATERAL KNEES ... Q8H PRN TOP KNEE PAIN 12/11/19 19:00 01/09/20 09:58 Miscellaneous (Unresolved Clarification Entry) SEE LABEL COMMENTS DAILY XX 01/06/20 09:00 01/06/20 09:42 DC Miscellaneous (Unresolved Clarification Entry) SEE LABEL COMMENTS DAILY XX 01/01/20 09:00 01/01/20 11:03 DC Nicotine (Nicoderm Cq 21mg) 1 patch DAILY TD 12/12/19 09:00 01/09/20 09:56 Non-Formulary Medication ( See Comment Field Below ) REMOVE LIDODERM PATCH DAILY@21 XX 12/11/19 21:00 01/07/20 20:33 Olanzapine (ZyPREXA ZYDIS) 5 mg Q4HP PRN PO AGITATION 12/14/19 21:15 12/28/19 10:13 DC 12/26/19 08:27 Olanzapine (ZyPREXA ZYDIS) 5 mg QHS PO 12/11/19 21:00 12/12/19 11:49 DC 12/11/19 22:22 Ondansetron HCl (Zofran Odt) 4 mg Q8H PRN PO NAUSEA 12/11/19 19:00 01/08/20 15:13 Paliperidone Palmitate (Invega Sustenna) 234 mg Q30D IM 12/22/19 09:00 12/25/19 09:11 DC 12/22/19 08:23 Phenyleph/Shark Oil/Min Oil/Petrol (Preparation H Ointment) BID PRN TOP hemorroids 01/02/20 10:30 01/09/20 09:58 Polyethylene Glycol (Miralax) 1 pkt DAILY PRN PO CONSTIPATION 12/11/19 19:00 01/08/20 18:41 Risperidone (RisperDAL) 1 mg QHS PO 12/20/19 21:00 12/25/19 09:11 DC 12/20/19 20:07 Sucralfate (Carafate Suspension) 1 gm BID PO 12/15/19 21:00 01/09/20 09:56 Sucralfate (Carafate) 1 gm BID PO 12/11/19 21:00 12/15/19 12:59 DC 12/15/19 08:46 Allergies Coded Allergies: Penicillins (Unverified Allergy, Unknown, 12/14/19) diethylene glycol (Unverified Allergy, Unknown, 12/14/19) ALSO CALLED CARBITOL divalproex sodium (Unverified Allergy, Unknown, Unverified reaction. It is SUSPECT, 12/14/19) fluphenazine (Unverified Allergy, Unknown, UNVERIFIED REACTION. IT IS SUSPECT, 12/14/19) lithium (Unverified Allergy, Unknown, UNVERIFIED REACTION. IT IS SUSPECT., 12/14/19) meperidine (Unverified Allergy, Unknown, 12/14/19) metoclopramide (Unverified Allergy, Unknown, 12/14/19) olanzapine (Unverified Allergy, Unknown, 12/14/19) PT CANNOT VERBALIZE ACTUAL REACTION TO MEDICATION, HAS TAKEN PREVIOUS DOSES ON UNIT WITHOUT INCIDENT ranitidine (Unverified Allergy, Unknown, 12/14/19) risperidone (Unverified Allergy, Unknown, Unverified reaction. It is SUSPECT., 12/14/19) sertraline (Unverified Allergy, Unknown, Unverified reaction. It is SUSPECT, 12/14/19) acetaminophen (Verified Adverse Reaction, Unknown, PT HX HEP B, HEP C, 12/11/19) haloperidol (Verified Adverse Reaction, Unknown, makes me go crazy, 12/11/19) uNVERIFIED REACTION. IT IS SUSPECT SANDI MORAN NP Jan 09, 2020 12:37
[2020-01-09] MEDS: ACETAMINOPHEN TAB 650MG DOSE (2X325MG) PO PRN (15:41)
[2020-01-09 16:07] VITALS: BP 136/82
[2020-01-09] MEDS: ONDANSETRON 4 MG ORAL DISINTEGRATING TAB PO PRN (17:47)
[2020-01-09] MEDS: ALBUTEROL 90 MCG/ACT 8GM HFA INHALER INH PRN (19:39)
[2020-01-10] MEDS ORDERED: diphenhydrAMINE 50MG CAP PO ONE (02:15)
[2020-01-10] MEDS: ACETAMINOPHEN TAB 650MG DOSE (2X325MG) PO PRN ×3 (03:31→20:30)
[2020-01-10] MEDS: ONDANSETRON 4 MG ORAL DISINTEGRATING TAB PO PRN (04:44)
[2020-01-10 06:35] VITALS: BP 140/73
[2020-01-10] MEDS: SUCRALFATE SUSP 1GM/10ML UD PO SCH ×2 (08:49→20:27)
[2020-01-10] MEDS: clonazePAM 0.5 MG TAB PO SCH ×2 (08:50→20:28)
[2020-01-10] MEDS: NICOTINE 21MG/24HR 1 EA TRANSDERMAL TD SCH (08:52)
[2020-01-10] MEDS: PILL CUTTER 1 EACH XX PRN (08:55)
[2020-01-10] MEDS: haloperidoL 5 MG TAB PO SCH ×2 (09:00→21:00)
--- NOTE | 2020-01-10 09:43 | MHIPNPDOC ---
[facility] Progress Note Progress Note DATE OF SERVICE: 01/10/20 ADMIT DATE: Dec 10, 2019 at 01:00 ATTENDING DOCTOR: Dr. Rosa Park MD FAMILY CONTACTS: N/A SECTION I: CLINICAL SUMMARY: 49-year-old woman with a history of bipolar disorder presents distorted and is severely psychotic. She has been offered medications multiple times on the unit and remains quite psychotic, she is bathing in the toilet, sticking various objects into her orifices, snorting salt packets leaving her face bleeding, she's needed multiple observations in order to ensure that she is in injure herself due to her severe disorganization. DIAGNOSIS: bipolar disorder, type I SECTION II: Proposed Treatment. 1. Course of treatment recommended by treating physician: To prescribe an antipsychotic as the follows: Oral medication: Abilify 5 mg to 30 mg daily in divided doses,or Zyprexa 5 mg to 30 mg in divided doses,or paliperidone 3 to 12 mg in divided doses,or risperidone 1 to 6 mg in daily divided doses,or Vrylar 1.5 to 6mg daily,or Any combination as deemed efficacious if one individual medication Does not provide sufficient reduction of symptoms Intramuscular, to be used if refused: Haldol, 2 to 30 mg daily in divided doses; or Thorazine 25 to 900 mg in divided daily doses; or Zyprexa 5 to 30 mg daily in divided doses or Prolixin 5 mg to 30 mg in daily divided doses Any combination as deemed efficacious if one individual medication does not provide sufficient reduction of symptoms Long-acting, to be used if related oral medicine is tolerated and efficacious: Abilify long-acting 300 to 400 monthly, or Paliperidone long-acting 156 to 254 mg monthly, or Haldol long-acting 20 to 100 mg monthly, or any combination deemed efficacious in combination with oral or long-acting medicines to reduce symptoms, If one is deemed not sufficient alone. Medical procedures and antidotes: Forcible restraint to do required electrocardiogram monitoring, blood monitoring to ensure individuals not placed it excessive risk of danger, even if refused Cogentin 0.5 to up to a total of 4 mg per day in divided (intramuscular) doses if Parkinsonian symptoms are evident. Electroconvulsive treatment, to be used only in condition that all medication options fail to control symptoms, patient would need to be ordered to the closest local facility for electroconvulsive treatment such as [facility] in [place] or other suitable location 2. Reasonable alternatives if any are: As above 3. Has the patient been tried on the proposed treatment? Yes, with positive effects, particularly Haldol 4. Anticipated benefits to proposed treatment Control of severe psychosis and disorganization, allowing patient to participate in treatment and regain function and reduce her danger to herself through her severely deranged and disorganized behavior 5. Reasonably foreseeable adverse side effects: [Parkinsonian symptoms, weight gain, sedation, side effects of neuroleptics. In rare cases, neuroleptic malignant syndrome and tardive dyskinesia may develop. However, the treatment team believes that the benefit outweighs any risk.] 6. Prognosis without treatment: severely Grim, likely will from injury related to her disorganized behavior SECTION III: Patient's capacity. 1. Explained to the patient: A. Condition: yes B. Proposed treatment: yes C. Anticipated benefits of treatment: yes D. Risks of adverse side effects of treatment: yes E. Availability of other treatments and comparison of benefits and risks: yes F. Risk of no treatment: n/a 2. State the nature of the patient's objections to treatment: screamed incoherently, unable to participate in any meaningful interview 3. The patient's capacity: severely limited SECTION IV: LIKELIHOOD FOR DANGEROUS BEHAVIOR: 1. The patient is believed to be dangerous to other at the hospital unless treated: N/A 2. Is the patient believed to be likely dangerous to self if not treated: as above, disorganized behavior will likely lead to severe injury and , for example her use of various contaminated objects as female hygiene could lead to toxic sock syndrome and into her life, amongst many other dangers due to her severe disorganization SECTION V: ANY OTHER INFORMATION: N/A Vital Signs Vital Signs Date Time Temp Pulse Resp B/P (MAP) Pulse Ox O2 Delivery O2 Flow Rate FiO2 01/10/20 06:35 99.3 105 17 140/73 (95) 99 Room Air Current Medications Current Medications Medications (Trade) Dose Ordered Sig/Jackelyn Route PRN Reason Start Time Stop Time Status Last Admin Dose Admin Acetaminophen (Tylenol Tab) 650 mg Q6H PRN PO HEADACHE OR DISCOMFORT 12/11/19 19:00 12/28/19 10:13 DC 12/28/19 04:47 Acetaminophen (Tylenol Tab) 650 mg Q6HP PRN PO PAIN / FEVER 01/05/20 18:45 01/10/20 03:31 Al Hydrox/Mg Hydrox/Simethicone (Mylanta) 30 ml Q4H PRN PO HEARTBURN/INDIGESTION 12/11/19 19:00 01/03/20 12:56 Albuterol Sulfate (Proventil, Ventolin Hfa) 2 puff Q6H PRN INH SHORTNESS OF BREATH 12/11/19 18:00 01/09/20 19:39 Aripiprazole (AbiLIFY) 5 mg QHS PO 12/11/19 21:00 12/11/19 18:00 DC Aripiprazole (AbiLIFY) 5 mg QHS PO 12/12/19 21:00 12/15/19 12:54 DC 12/13/19 21:21 Cariprazine (Vraylar) 3 mg QHS PO 12/15/19 21:00 12/25/19 09:11 DC 12/21/19 20:18 Cetylpyridinium Chloride (Cepacol) 1 karoline Q6H PRN PO SORE THROAT 12/12/19 12:00 01/09/20 23:50 Clonazepam (KlonoPIN) 0.25 mg QAM PO 12/21/19 09:00 01/10/20 08:50 Clonazepam (KlonoPIN) 0.5 mg QAM PO 12/12/19 09:00 12/21/19 09:07 DC 12/21/19 08:21 Clonazepam (KlonoPIN) 0.75 mg QHS PO 12/25/19 21:00 01/09/20 20:40 Clonazepam (KlonoPIN) 1 mg QHS PO 12/11/19 21:00 12/25/19 09:11 DC 12/24/19 20:18 Cyclobenzaprine HCl (Flexeril) 5 mg BIDP PRN PO MUSCLE SPASMS 12/13/19 21:15 01/09/20 20:39 Docusate Sodium (Colace) 100 mg BID PRN PO CONSTIPATION 12/11/19 19:00 01/07/20 07:17 Haloperidol (Haldol) 5 mg BID PO 12/25/19 09:00 01/03/20 08:31 Haloperidol (Haldol) 5 mg Q6HP PRN PO AGITATION 12/28/19 10:15 01/07/20 04:28 Home Med (Med Rec Complete!) ASDIRECTED XX 12/11/19 18:45 12/11/19 18:40 DC Ibuprofen (Advil) 600 mg Q8HP PRN PO PAIN 12/28/19 10:15 01/04/20 10:46 DC 01/04/20 06:43 Lidocaine (Lidoderm Patch) 1 patch DAILY PRN TD LOWER BACK PAIN 12/12/19 09:00 01/09/20 10:00 Lorazepam (Ativan) 1 mg BIDP PRN PO ANXIETY/AGITATION 12/16/19 13:45 12/23/19 13:44 DC 12/23/19 04:49 Lorazepam (Ativan) 1 mg BIDP PRN PO ANXIETY/AGITATION 12/23/19 14:15 12/30/19 14:14 DC 12/29/19 21:02 Lorazepam (Ativan) 2 mg STAT STAT PO 12/25/19 11:20 12/25/19 11:22 DC 12/25/19 11:25 Magnesium Hydroxide (Milk Of Magnesia) 30 ml DAILYPRN PRN PO CONSTIPATION 12/11/19 19:00 01/02/20 13:18 Menthol/Methyl Salicylate (Bengay Cream) APPLY TO BILATERAL KNEES ... Q8H PRN TOP KNEE PAIN 12/11/19 19:00 01/09/20 20:39 Miscellaneous (Unresolved Clarification Entry) SEE LABEL COMMENTS DAILY XX 01/06/20 09:00 01/06/20 09:42 DC Miscellaneous (Unresolved Clarification Entry) SEE LABEL COMMENTS DAILY XX 01/01/20 09:00 01/01/20 11:03 DC Nicotine (Nicoderm Cq 21mg) 1 patch DAILY TD 12/12/19 09:00 01/10/20 08:52 Non-Formulary Medication ( See Comment Field Below ) REMOVE LIDODERM PATCH DAILY@21 XX 12/11/19 21:00 01/09/20 20:42 Olanzapine (ZyPREXA ZYDIS) 5 mg Q4HP PRN PO AGITATION 12/14/19 21:15 12/28/19 10:13 DC 12/26/19 08:27 Olanzapine (ZyPREXA ZYDIS) 5 mg QHS PO 12/11/19 21:00 12/12/19 11:49 DC 12/11/19 22:22 Ondansetron HCl (Zofran Odt) 4 mg Q8H PRN PO NAUSEA 12/11/19 19:00 01/10/20 04:44 Paliperidone Palmitate (Invega Sustenna) 234 mg Q30D IM 12/22/19 09:00 12/25/19 09:11 DC 12/22/19 08:23 Phenyleph/Shark Oil/Min Oil/Petrol (Preparation H Ointment) BID PRN TOP hemorroids 01/02/20 10:30 01/09/20 09:58 Polyethylene Glycol (Miralax) 1 pkt DAILY PRN PO CONSTIPATION 12/11/19 19:00 01/08/20 18:41 Risperidone (RisperDAL) 1 mg QHS PO 12/20/19 21:00 12/25/19 09:11 DC 12/20/19 20:07 Sucralfate (Carafate Suspension) 1 gm BID PO 12/15/19 21:00 01/10/20 08:49 Sucralfate (Carafate) 1 gm BID PO 12/11/19 21:00 12/15/19 12:59 DC 12/15/19 08:46 Allergies Coded Allergies: Penicillins (Unverified Allergy, Unknown, 12/14/19) diethylene glycol (Unverified Allergy, Unknown, 12/14/19) ALSO CALLED CARBITOL divalproex sodium (Unverified Allergy, Unknown, Unverified reaction. It is SUSPECT, 12/14/19) fluphenazine (Unverified Allergy, Unknown, UNVERIFIED REACTION. IT IS SUSPECT, 12/14/19) lithium (Unverified Allergy, Unknown, UNVERIFIED REACTION. IT IS SUSPECT., 12/14/19) meperidine (Unverified Allergy, Unknown, 12/14/19) metoclopramide (Unverified Allergy, Unknown, 12/14/19) olanzapine (Unverified Allergy, Unknown, 12/14/19) PT CANNOT VERBALIZE ACTUAL REACTION TO MEDICATION, HAS TAKEN PREVIOUS DOSES ON UNIT WITHOUT INCIDENT ranitidine (Unverified Allergy, Unknown, 12/14/19) risperidone (Unverified Allergy, Unknown, Unverified reaction. It is SUSPECT., 12/14/19) sertraline (Unverified Allergy, Unknown, Unverified reaction. It is SUSPECT, 12/14/19) acetaminophen (Verified Adverse Reaction, Unknown, PT HX HEP B, HEP C, 12/11/19) haloperidol (Verified Adverse Reaction, Unknown, makes me go crazy, 12/11/19) uNVERIFIED REACTION. IT IS SUSPECT GUADALUPE MORALES DO Jan 10, 2020 09:43
--- NOTE | 2020-01-10 10:35 | MHIPNPDOC ---
[facility] Progress Note Progress Note DATE OF SERVICE: 01/10/20 HISTORY: This is Day 32 for this patient's admission. To Review the Patient is a 49 year old Single, Disabled, Female who was brought to [facility] for Bizarre, Manic and Delusional Behaviors. She is diagnosed Bipolar Disorder, she has had numerous psychiatric hospitalizations. She was unwilling to take many medications because she is allergic. She reports numerous medications that she is allergic to including [place] which she would benefit from. Many of her example of allergic reactions are not true allergic reactions. VITAL SIGNS: See below. NEW TEST RESULTS: CURRENT MEDICATIONS: See below. MENTAL STATUS EXAMINATION: Patient is a 49-year old female, who is admitted to [facility] for bizarre and delusional behaviors in the community. She appears her stated age. Her hygiene and grooming is poor. Stating that she washed her hair in the toilet. She makes good eye contact. She has not psychomotor agitation or retardation. It is reported that she is washing her clothes and self with toilet water. Speech: Is rapid fire , with flight of ideas, found yelling in her room. Language skills are good Thought processes including: declining thought process, scattered with flight of ideas Thought content: Hypomanic symptoms, racing thoughts Abstract reasoning, and computation: limited Description of associations: mild scattered thoughts/disorganized thinking Description of abnormal or psychotic thoughts: she is not responding to internal stimuli Judgment: poor Insight: poor Orientation: alert and oriented Recent and remote memory: intact Attention span and concentration: fair Language: good Fund of knowledge: average Mood: flat/mildly depressed. Affect: flat DIAGNOSES: 1. Bipolar I Disorder, Manic ASSESSMENT: Patient presents with fast speech, mild flight of ideas. She is very focused on medications again today, requesting Invega, Albuterol and pain medications. She also reports a migraine again, sitting in the interview with her eyes clothes, holding her head, facial grimacing. Topamax 100 mg ordered. Reinforced the need for her to take Haldol, she reports that she had difficulty breathing, was manic and auditory hallucinations. She states that she cannot take numerous medications. To review, when patient was cooperative with medications, she was calmer and had organized thoughts. She states she needs Albuterol today, although she presents with rapid fire speech, not observed with shortness of breath, difficulty breathing. Focused on the need for Albuterol because she is not getting fresh air. She uses a tampon applicator to simulate smoking. Reading the Patient Education Information on Haldol and reports all the side effects written on the patient education. She is cycling quickly between hypomanic and depressive symptoms during the day. Her discussion vacillates between [facility] and the need for requested medications, but refusing medications that will stabilize her. at 1506 patient requested to be hospitalized at [facility] because she is unable to shower at 3 AM and sleep until noon. MANAGEMENT PLAN: Will continue the medications. Treatment Over Objection is maintained due to her severe poor insight and judgement, disorganized/scattered thoughts. She will be discharged to home if she stabilizes or will be transferred to [facility] for further hospitalization. TIME SPENT: 20 minutes. Vital Signs Vital Signs Date Time Temp Pulse Resp B/P (MAP) Pulse Ox O2 Delivery O2 Flow Rate FiO2 01/10/20 06:35 99.3 105 17 140/73 (95) 99 Room Air Current Medications Current Medications Medications (Trade) Dose Ordered Sig/Jackelyn Route PRN Reason Start Time Stop Time Status Last Admin Dose Admin Acetaminophen (Tylenol Tab) 650 mg Q6H PRN PO HEADACHE OR DISCOMFORT 12/11/19 19:00 12/28/19 10:13 DC 12/28/19 04:47 Acetaminophen (Tylenol Tab) 650 mg Q6HP PRN PO PAIN / FEVER 01/05/20 18:45 01/10/20 03:31 Al Hydrox/Mg Hydrox/Simethicone (Mylanta) 30 ml Q4H PRN PO HEARTBURN/INDIGESTION 12/11/19 19:00 01/03/20 12:56 Albuterol Sulfate (Proventil, Ventolin Hfa) 2 puff Q6H PRN INH SHORTNESS OF BREATH 12/11/19 18:00 01/09/20 19:39 Aripiprazole (AbiLIFY) 5 mg QHS PO 12/11/19 21:00 12/11/19 18:00 DC Aripiprazole (AbiLIFY) 5 mg QHS PO 12/12/19 21:00 12/15/19 12:54 DC 12/13/19 21:21 Cariprazine (Vraylar) 3 mg QHS PO 12/15/19 21:00 12/25/19 09:11 DC 12/21/19 20:18 Cetylpyridinium Chloride (Cepacol) 1 karoline Q6H PRN PO SORE THROAT 12/12/19 12:00 01/09/20 23:50 Clonazepam (KlonoPIN) 0.25 mg QAM PO 12/21/19 09:00 01/10/20 08:50 Clonazepam (KlonoPIN) 0.5 mg QAM PO 12/12/19 09:00 12/21/19 09:07 DC 12/21/19 08:21 Clonazepam (KlonoPIN) 0.75 mg QHS PO 12/25/19 21:00 01/09/20 20:40 Clonazepam (KlonoPIN) 1 mg QHS PO 12/11/19 21:00 12/25/19 09:11 DC 12/24/19 20:18 Cyclobenzaprine HCl (Flexeril) 5 mg BIDP PRN PO MUSCLE SPASMS 12/13/19 21:15 01/09/20 20:39 Docusate Sodium (Colace) 100 mg BID PRN PO CONSTIPATION 12/11/19 19:00 01/07/20 07:17 Haloperidol (Haldol) 5 mg BID PO 12/25/19 09:00 01/03/20 08:31 Haloperidol (Haldol) 5 mg Q6HP PRN PO AGITATION 12/28/19 10:15 01/07/20 04:28 Home Med (Med Rec Complete!) ASDIRECTED XX 12/11/19 18:45 12/11/19 18:40 DC Ibuprofen (Advil) 600 mg Q8HP PRN PO PAIN 12/28/19 10:15 01/04/20 10:46 DC 01/04/20 06:43 Lidocaine (Lidoderm Patch) 1 patch DAILY PRN TD LOWER BACK PAIN 12/12/19 09:00 01/09/20 10:00 Lorazepam (Ativan) 1 mg BIDP PRN PO ANXIETY/AGITATION 12/16/19 13:45 12/23/19 13:44 DC 12/23/19 04:49 Lorazepam (Ativan) 1 mg BIDP PRN PO ANXIETY/AGITATION 12/23/19 14:15 12/30/19 14:14 DC 12/29/19 21:02 Lorazepam (Ativan) 2 mg STAT STAT PO 12/25/19 11:20 12/25/19 11:22 DC 12/25/19 11:25 Magnesium Hydroxide (Milk Of Magnesia) 30 ml DAILYPRN PRN PO CONSTIPATION 12/11/19 19:00 01/02/20 13:18 Menthol/Methyl Salicylate (Bengay Cream) APPLY TO BILATERAL KNEES ... Q8H PRN TOP KNEE PAIN 12/11/19 19:00 01/09/20 20:39 Miscellaneous (Unresolved Clarification Entry) SEE LABEL COMMENTS DAILY XX 01/06/20 09:00 01/06/20 09:42 DC Miscellaneous (Unresolved Clarification Entry) SEE LABEL COMMENTS DAILY XX 01/01/20 09:00 01/01/20 11:03 DC Nicotine (Nicoderm Cq 21mg) 1 patch DAILY TD 12/12/19 09:00 01/10/20 08:52 Non-Formulary Medication ( See Comment Field Below ) REMOVE LIDODERM PATCH DAILY@21 XX 12/11/19 21:00 01/09/20 20:42 Olanzapine (ZyPREXA ZYDIS) 5 mg Q4HP PRN PO AGITATION 12/14/19 21:15 12/28/19 10:13 DC 12/26/19 08:27 Olanzapine (ZyPREXA ZYDIS) 5 mg QHS PO 12/11/19 21:00 12/12/19 11:49 DC 12/11/19 22:22 Ondansetron HCl (Zofran Odt) 4 mg Q8H PRN PO NAUSEA 12/11/19 19:00 01/10/20 04:44 Paliperidone Palmitate (Invega Sustenna) 234 mg Q30D IM 12/22/19 09:00 12/25/19 09:11 DC 12/22/19 08:23 Phenyleph/Shark Oil/Min Oil/Petrol (Preparation H Ointment) BID PRN TOP hemorroids 01/02/20 10:30 01/09/20 09:58 Polyethylene Glycol (Miralax) 1 pkt DAILY PRN PO CONSTIPATION 12/11/19 19:00 01/08/20 18:41 Risperidone (RisperDAL) 1 mg QHS PO 12/20/19 21:00 12/25/19 09:11 DC 12/20/19 20:07 Sucralfate (Carafate Suspension) 1 gm BID PO 12/15/19 21:00 01/10/20 08:49 Sucralfate (Carafate) 1 gm BID PO 12/11/19 21:00 12/15/19 12:59 DC 12/15/19 08:46 Allergies Coded Allergies: Penicillins (Unverified Allergy, Unknown, 12/14/19) diethylene glycol (Unverified Allergy, Unknown, 12/14/19) ALSO CALLED CARBITOL divalproex sodium (Unverified Allergy, Unknown, Unverified reaction. It is SUSPECT, 12/14/19) fluphenazine (Unverified Allergy, Unknown, UNVERIFIED REACTION. IT IS SUSPECT, 12/14/19) lithium (Unverified Allergy, Unknown, UNVERIFIED REACTION. IT IS SUSPECT., 12/14/19) meperidine (Unverified Allergy, Unknown, 12/14/19) metoclopramide (Unverified Allergy, Unknown, 12/14/19) olanzapine (Unverified Allergy, Unknown, 12/14/19) PT CANNOT VERBALIZE ACTUAL REACTION TO MEDICATION, HAS TAKEN PREVIOUS DOSES ON UNIT WITHOUT INCIDENT ranitidine (Unverified Allergy, Unknown, 12/14/19) risperidone (Unverified Allergy, Unknown, Unverified reaction. It is SUSPECT., 12/14/19) sertraline (Unverified Allergy, Unknown, Unverified reaction. It is SUSPECT, 12/14/19) acetaminophen (Verified Adverse Reaction, Unknown, PT HX HEP B, HEP C, 12/11/19) haloperidol (Verified Adverse Reaction, Unknown, makes me go crazy, 12/11/19) uNVERIFIED REACTION. IT IS SUSPECT SANDI MORAN NP Jan 10, 2020 10:35
[2020-01-10] MEDS ORDERED: TOPIRAMATE (TopAMAX) 100 MG TAB PO ONE (11:00)
[2020-01-10 18:46] VITALS: BP 141/73
[2020-01-10] MEDS: ALBUTEROL 90 MCG/ACT 8GM HFA INHALER INH PRN (20:28)
[2020-01-10] MEDS: CYCLOBENZAPRINE 5MG TABLET PO PRN (23:10)
[2020-01-11] MEDS: CEPACOL LOZENGE PO PRN ×3 (00:37→22:12)
[2020-01-11 06:30] VITALS: BP 135/85
[2020-01-11] MEDS: haloperidoL 5 MG TAB PO SCH ×2 (08:16→20:28)
[2020-01-11] MEDS: clonazePAM 0.5 MG TAB PO SCH ×2 (08:21→20:25)
[2020-01-11] MEDS: PILL CUTTER 1 EACH XX PRN (08:21)
[2020-01-11] MEDS: CYCLOBENZAPRINE 5MG TABLET PO PRN ×2 (08:22→20:24)
[2020-01-11] MEDS: SUCRALFATE SUSP 1GM/10ML UD PO SCH ×2 (08:23→20:24)
[2020-01-11] MEDS: ACETAMINOPHEN TAB 650MG DOSE (2X325MG) PO PRN ×2 (08:24→19:07)
[2020-01-11] MEDS: NICOTINE 21MG/24HR 1 EA TRANSDERMAL TD SCH (08:24)
[2020-01-11] MEDS: ALBUTEROL 90 MCG/ACT 8GM HFA INHALER INH PRN ×3 (08:25→22:12)
[2020-01-11] MEDS ORDERED: TOPIRAMATE (TopAMAX) 100 MG TAB PO ONE (13:00)
--- NOTE | 2020-01-11 13:13 | MHIPNPDOC ---
[facility] Progress Note Progress Note DATE OF SERVICE: 01/11/20 HISTORY: This is Day 33 for this patient's admission. To Review the Patient is a 49 year old Single, Disabled, Female who was brought to [facility] for Bizarre, Manic and Delusional Behaviors. She is diagnosed Bipolar Disorder, she has had numerous psychiatric hospitalizations. She was unwilling to take many medications because she is allergic. She reports numerous medications that she is allergic to including [place] which she would benefit from. Many of her example of allergic reactions are not true allergic reactions. VITAL SIGNS: See below. NEW TEST RESULTS: CURRENT MEDICATIONS: See below. MENTAL STATUS EXAMINATION: Patient is a 49-year old female, who is admitted to [facility] for bizarre and delusional behaviors in the community. She appears her stated age. Her hygiene and grooming is poor. Speech: Is fast, mildly pressured , with flight of ideas Language skills are good Thought processes including: declining thought process, scattered with flight of ideas Thought content: Hypomanic symptoms, racing thoughts Abstract reasoning, and computation: limited Description of associations: mild scattered thoughts/disorganized thinking Description of abnormal or psychotic thoughts: she is not responding to internal stimuli, grandiose today believing that she has a "connection" to Chad Garcia and Mario Marquez Judgment: poor Insight: poor Orientation: alert and oriented Recent and remote memory: intact Attention span and concentration: fair Language: good Fund of knowledge: average Mood: flat/mildly depressed. Affect: flat DIAGNOSES: 1. Bipolar I Disorder, Manic ASSESSMENT: Patient presents with fast speech, mild flight of ideas. She is very focused on on [facility], states that she is to Chad Garcia and talks about Mario Marquez. She also reports a migraine again today. Topamax 100 mg ordered. Her conversations was extremely random, from [employer] musicians. to the Nicotine patch on her arm denotes how old she acts, not liking the RNs on the unit. States that Haldol caused her diarrhea, hemorrhoids and hiatal hernia. She spent much of the interview, coloring and having random conversations. States that she needs Albuterol because she has not had fresh air , Sp02 is at 100% and I reinforced with her that she has no shortness of breath or difficulty breathing. Patient is adept at staff splitting, reporting that several nurses are against her having inhaler and then states that she had originally wanted to [place] Dr. Park, but over the weekend Dr. Park prescribed Ativan and now she thinks the MD is a good doctor. Reinforced with patient need to take medications that will stabilize her. She states that the only thing that helped her on the outside was medical marijuana. Patient's room is arranged very oddly today, she has most of her belongings on the bed, including a chair that is situated on top of the bed. According to staff, patient has been found sitting on the chair that is placed on the bed. When asked what she is doing patient replied "I am miranda." MANAGEMENT PLAN: Will continue the medications. Treatment Over Objection is maintained due to her severe poor insight and judgement, disorganized/scattered thoughts. She will be discharged to home if she stabilizes or will be transferred to [facility] for further hospitalization. TIME SPENT: 20 minutes. Vital Signs Vital Signs Date Time Temp Pulse Resp B/P (MAP) Pulse Ox O2 Delivery O2 Flow Rate FiO2 01/11/20 06:30 97.5 104 20 135/85 (102) Room Air 01/10/20 06:35 99 Current Medications Current Medications Medications (Trade) Dose Ordered Sig/Jackelyn Route PRN Reason Start Time Stop Time Status Last Admin Dose Admin Acetaminophen (Tylenol Tab) 650 mg Q6H PRN PO HEADACHE OR DISCOMFORT 12/11/19 19:00 12/28/19 10:13 DC 12/28/19 04:47 Acetaminophen (Tylenol Tab) 650 mg Q6HP PRN PO PAIN / FEVER 01/05/20 18:45 01/11/20 08:24 Al Hydrox/Mg Hydrox/Simethicone (Mylanta) 30 ml Q4H PRN PO HEARTBURN/INDIGESTION 12/11/19 19:00 01/03/20 12:56 Albuterol Sulfate (Proventil, Ventolin Hfa) 2 puff Q6H PRN INH SHORTNESS OF BREATH 12/11/19 18:00 01/11/20 08:25 Aripiprazole (AbiLIFY) 5 mg QHS PO 12/11/19 21:00 12/11/19 18:00 DC Aripiprazole (AbiLIFY) 5 mg QHS PO 12/12/19 21:00 12/15/19 12:54 DC 12/13/19 21:21 Cariprazine (Vraylar) 3 mg QHS PO 12/15/19 21:00 12/25/19 09:11 DC 12/21/19 20:18 Cetylpyridinium Chloride (Cepacol) 1 karoline Q6H PRN PO SORE THROAT 12/12/19 12:00 01/11/20 08:25 Clonazepam (KlonoPIN) 0.25 mg QAM PO 12/21/19 09:00 01/11/20 08:21 Clonazepam (KlonoPIN) 0.5 mg QAM PO 12/12/19 09:00 12/21/19 09:07 DC 12/21/19 08:21 Clonazepam (KlonoPIN) 0.75 mg QHS PO 12/25/19 21:00 01/10/20 20:28 Clonazepam (KlonoPIN) 1 mg QHS PO 12/11/19 21:00 12/25/19 09:11 DC 12/24/19 20:18 Cyclobenzaprine HCl (Flexeril) 5 mg BIDP PRN PO MUSCLE SPASMS 12/13/19 21:15 01/11/20 08:22 Docusate Sodium (Colace) 100 mg BID PRN PO CONSTIPATION 12/11/19 19:00 01/07/20 07:17 Haloperidol (Haldol) 5 mg BID PO 12/25/19 09:00 01/03/20 08:31 Haloperidol (Haldol) 5 mg Q6HP PRN PO AGITATION 12/28/19 10:15 01/07/20 04:28 Home Med (Med Rec Complete!) ASDIRECTED XX 12/11/19 18:45 12/11/19 18:40 DC Ibuprofen (Advil) 600 mg Q8HP PRN PO PAIN 12/28/19 10:15 01/04/20 10:46 DC 01/04/20 06:43 Lidocaine (Lidoderm Patch) 1 patch DAILY PRN TD LOWER BACK PAIN 12/12/19 09:00 01/09/20 10:00 Lorazepam (Ativan) 1 mg BIDP PRN PO ANXIETY/AGITATION 12/16/19 13:45 12/23/19 13:44 DC 12/23/19 04:49 Lorazepam (Ativan) 1 mg BIDP PRN PO ANXIETY/AGITATION 12/23/19 14:15 12/30/19 14:14 DC 12/29/19 21:02 Lorazepam (Ativan) 2 mg STAT STAT PO 12/25/19 11:20 12/25/19 11:22 DC 12/25/19 11:25 Magnesium Hydroxide (Milk Of Magnesia) 30 ml DAILYPRN PRN PO CONSTIPATION 12/11/19 19:00 01/02/20 13:18 Menthol/Methyl Salicylate (Bengay Cream) APPLY TO BILATERAL KNEES ... Q8H PRN TOP KNEE PAIN 12/11/19 19:00 01/09/20 20:39 Miscellaneous (Unresolved Clarification Entry) SEE LABEL COMMENTS DAILY XX 01/06/20 09:00 01/06/20 09:42 DC Miscellaneous (Unresolved Clarification Entry) SEE LABEL COMMENTS DAILY XX 01/01/20 09:00 01/01/20 11:03 DC Nicotine (Nicoderm Cq 21mg) 1 patch DAILY TD 12/12/19 09:00 01/11/20 08:24 Non-Formulary Medication ( See Comment Field Below ) REMOVE LIDODERM PATCH DAILY@21 XX 12/11/19 21:00 01/09/20 20:42 Olanzapine (ZyPREXA ZYDIS) 5 mg Q4HP PRN PO AGITATION 12/14/19 21:15 12/28/19 10:13 DC 12/26/19 08:27 Olanzapine (ZyPREXA ZYDIS) 5 mg QHS PO 12/11/19 21:00 12/12/19 11:49 DC 12/11/19 22:22 Ondansetron HCl (Zofran Odt) 4 mg Q8H PRN PO NAUSEA 12/11/19 19:00 01/10/20 04:44 Paliperidone Palmitate (Invega Sustenna) 234 mg Q30D IM 12/22/19 09:00 12/25/19 09:11 DC 12/22/19 08:23 Phenyleph/Shark Oil/Min Oil/Petrol (Preparation H Ointment) BID PRN TOP hemorroids 01/02/20 10:30 01/09/20 09:58 Polyethylene Glycol (Miralax) 1 pkt DAILY PRN PO CONSTIPATION 12/11/19 19:00 01/08/20 18:41 Risperidone (RisperDAL) 1 mg QHS PO 12/20/19 21:00 12/25/19 09:11 DC 12/20/19 20:07 Sucralfate (Carafate Suspension) 1 gm BID PO 12/15/19 21:00 01/11/20 08:23 Sucralfate (Carafate) 1 gm BID PO 12/11/19 21:00 12/15/19 12:59 DC 12/15/19 08:46 Allergies Coded Allergies: Penicillins (Unverified Allergy, Unknown, 12/14/19) diethylene glycol (Unverified Allergy, Unknown, 12/14/19) ALSO CALLED CARBITOL divalproex sodium (Unverified Allergy, Unknown, Unverified reaction. It is SUSPECT, 12/14/19) fluphenazine (Unverified Allergy, Unknown, UNVERIFIED REACTION. IT IS SUSPECT, 12/14/19) lithium (Unverified Allergy, Unknown, UNVERIFIED REACTION. IT IS SUSPECT., 12/14/19) meperidine (Unverified Allergy, Unknown, 12/14/19) metoclopramide (Unverified Allergy, Unknown, 12/14/19) olanzapine (Unverified Allergy, Unknown, 12/14/19) PT CANNOT VERBALIZE ACTUAL REACTION TO MEDICATION, HAS TAKEN PREVIOUS DOSES ON UNIT WITHOUT INCIDENT ranitidine (Unverified Allergy, Unknown, 12/14/19) risperidone (Unverified Allergy, Unknown, Unverified reaction. It is SUSPECT., 12/14/19) sertraline (Unverified Allergy, Unknown, Unverified reaction. It is SUSPECT, 12/14/19) acetaminophen (Verified Adverse Reaction, Unknown, PT HX HEP B, HEP C, 12/11/19) haloperidol (Verified Adverse Reaction, Unknown, makes me go crazy, 12/11/19) uNVERIFIED REACTION. IT IS SUSPECT SANDI MORAN NP Jan 11, 2020 13:13
[2020-01-11 16:35] VITALS: BP 132/78
[2020-01-11] MEDS: ANALGESIC BALM CRM 120 GM TOP PRN (20:25)
[2020-01-12 06:38] VITALS: BP 130/81
[2020-01-12] MEDS: ACETAMINOPHEN TAB 650MG DOSE (2X325MG) PO PRN ×3 (07:44→21:11)
[2020-01-12] MEDS: haloperidoL 5 MG TAB PO SCH ×2 (08:09→20:02)
[2020-01-12] MEDS: ALBUTEROL 90 MCG/ACT 8GM HFA INHALER INH PRN ×2 (08:14→19:14)
[2020-01-12] MEDS: clonazePAM 0.5 MG TAB PO SCH ×2 (08:18→20:04)
[2020-01-12] MEDS: NICOTINE 21MG/24HR 1 EA TRANSDERMAL TD SCH (08:19)
[2020-01-12] MEDS: CYCLOBENZAPRINE 5MG TABLET PO PRN ×2 (08:20→20:04)
[2020-01-12] MEDS: SUCRALFATE SUSP 1GM/10ML UD PO SCH ×2 (08:21→20:04)
[2020-01-12] MEDS: LIDOCAINE 5% (LIDODERM) PATCH TD PRN (08:23)
[2020-01-12] MEDS: ONDANSETRON 4 MG ORAL DISINTEGRATING TAB PO PRN (14:39)
[2020-01-12] MEDS: haloperidoL 5 MG TAB PO PRN (15:21)
[2020-01-12] MEDS: PREPARATION H OINTMENT (HEMORRHOID) TOP PRN (15:23)
[2020-01-12 16:19] VITALS: BP 140/89
[2020-01-12] MEDS: CEPACOL LOZENGE PO PRN (19:14)
[2020-01-12] MEDS: ANALGESIC BALM CRM 120 GM TOP PRN (21:05)
[2020-01-12] MEDS ORDERED: LORazepam 1 MG TAB PO ONE (22:00)
[2020-01-12] MEDS ORDERED: diphenhydrAMINE 25MG CAP PO ONE (22:00)
[2020-01-13] MEDS: CEPACOL LOZENGE PO PRN ×2 (04:00→20:44)
[2020-01-13] MEDS: ALBUTEROL 90 MCG/ACT 8GM HFA INHALER INH PRN ×2 (04:07→22:35)
[2020-01-13] MEDS: ACETAMINOPHEN TAB 650MG DOSE (2X325MG) PO PRN ×3 (04:09→23:32)
[2020-01-13 06:32] VITALS: BP 136/78
[2020-01-13] MEDS: clonazePAM 0.5 MG TAB PO SCH ×2 (08:18→20:43)
[2020-01-13] MEDS: NICOTINE 21MG/24HR 1 EA TRANSDERMAL TD SCH (08:19)
[2020-01-13] MEDS: SUCRALFATE SUSP 1GM/10ML UD PO SCH ×2 (08:19→20:42)
[2020-01-13] MEDS: haloperidoL 5 MG TAB PO SCH ×3 (08:20→23:15)
[2020-01-13] MEDS: ONDANSETRON 4 MG ORAL DISINTEGRATING TAB PO PRN (10:49)
[2020-01-13] MEDS: LIDOCAINE 5% (LIDODERM) PATCH TD PRN (10:50)
[2020-01-13 16:25] VITALS: BP 140/79
[2020-01-13] MEDS: ANALGESIC BALM CRM 120 GM TOP PRN (20:44)
[2020-01-13] MEDS: PILL CUTTER 1 EACH XX PRN (20:45)
[2020-01-13] MEDS: CYCLOBENZAPRINE 5MG TABLET PO PRN (22:35)
[2020-01-13] MEDS ORDERED: diphenhydrAMINE 50MG CAP PO ONE (23:00)
[2020-01-13] MEDS ORDERED: LORazepam 1 MG TAB PO ONE (23:00)
[2020-01-14] MEDS: SUCRALFATE SUSP 1GM/10ML UD PO SCH ×2 (08:19→20:11)
[2020-01-14] MEDS: clonazePAM 0.5 MG TAB PO SCH ×2 (08:19→20:12)
[2020-01-14] MEDS: PILL CUTTER 1 EACH XX PRN (08:36)
[2020-01-14] MEDS: ACETAMINOPHEN TAB 650MG DOSE (2X325MG) PO PRN ×2 (08:40→20:15)
[2020-01-14] MEDS: haloperidoL 5 MG TAB PO SCH ×3 (09:00→23:16)
--- NOTE | 2020-01-14 10:03 | MHIPNPDOC ---
[facility] Progress Note Progress Note DATE OF SERVICE: 01/14/20 HISTORY: Patient was a 9.41 to [facility] of bizarre and delusional behaviors. She was exhibiting psychotic symptoms. VITAL SIGNS: See below. NEW TEST RESULTS: CURRENT MEDICATIONS: See below. MENTAL STATUS EXAMINATION: Patient is a 49 -year old female, who is admitted to [facility] for exacerbation of Bipolar Symptoms. She had improved about a week during this admission but she became non-compliant. She continues to have poor insight and judgment, reporting that all antipsychotics cause her some severe allergic reaction. She reports that medications that she has taken cause her kevin. She is unkempt and bizarre in her dress. Cooperative in the interview, she hjas normal eye contact Speech: Is rapid, slurred at times, pressured with flight of ideas. Language skills are fair. Thought processes including: disorganized and scattered at times. med-seeking behaviors. Loose Associations Thought content: racing thoughts, she is religiously preoccupied and music focused in her journal Abstract reasoning, and computation: poor at time of interview. Description of associations: Denies. She is somatic, has dichotomous reasoning Description of abnormal or psychotic thoughts: Delusional about medications, states that medications give her severe reactions. Judgment: Severely poor Insight: Poor Orientation: alert and oriented Recent and remote memory: intact Attention span and concentration: fair Language: expansive Fund of knowledge: average Mood: Hypomanic Affect: Flat, labile DIAGNOSES: 1. Bipolar, Recurrent, Manic Episode ASSESSMENT: Patient continues to demonstrate poor insight and judgment, she presents with med-seeking behaviors. When asked why she she had a Nicotine pa tch in her mouth over the weekend, she states "I was trying to get more Nicotine out of it, I haven't had a cigarette in over a month, I wasn't eating it, I was just sucking on it a little bit." Patient came into the interview with coke, coffee and books. She poured the bottle of coke into her coffee and spilled it on the desk. She is observed to be hoarding as many items in her room that she can find. Redirected her thoughts away from requesting more medications. She states that she needs Topamax for a migraine, but states "I would feel better with Ativan instead of Topamax" She has disorganized thoughts, it is difficult to follow her train of thought because she has both flight of ideas and circumstantial. Mildly grandiose. MANAGEMENT PLAN: We will continue with Treatment Over Objection to administer medications that will stabilize the patient. Treatment plan to stabilize and discharge to home or [place] if she does not stabilize. TIME SPENT: 20 minutes. Vital Signs Vital Signs Date Time Temp Pulse Resp B/P (MAP) Pulse Ox O2 Delivery O2 Flow Rate FiO2 01/13/20 16:25 98.9 100 18 140/79 (99) 01/13/20 06:32 Room Air 01/10/20 06:35 99 Laboratory Data 24H Labs Laboratory Tests 2 01/14/20 09:05: Current Medications Current Medications Medications (Trade) Dose Ordered Sig/Jackelyn Route PRN Reason Start Time Stop Time Status Last Admin Dose Admin Acetaminophen (Tylenol Tab) 650 mg Q6H PRN PO HEADACHE OR DISCOMFORT 12/11/19 19:00 12/28/19 10:13 DC 12/28/19 04:47 Acetaminophen (Tylenol Tab) 650 mg Q6HP PRN PO PAIN / FEVER 01/05/20 18:45 01/14/20 08:40 Al Hydrox/Mg Hydrox/Simethicone (Mylanta) 30 ml Q4H PRN PO HEARTBURN/INDIGESTION 12/11/19 19:00 01/03/20 12:56 Albuterol Sulfate (Proventil, Ventolin Hfa) 2 puff Q6H PRN INH SHORTNESS OF BREATH 12/11/19 18:00 01/13/20 22:35 Aripiprazole (AbiLIFY) 5 mg QHS PO 12/11/19 21:00 12/11/19 18:00 DC Aripiprazole (AbiLIFY) 5 mg QHS PO 12/12/19 21:00 12/15/19 12:54 DC 12/13/19 21:21 Cariprazine (Vraylar) 3 mg QHS PO 12/15/19 21:00 12/25/19 09:11 DC 12/21/19 20:18 Cetylpyridinium Chloride (Cepacol) 1 karoline Q6H PRN PO SORE THROAT 12/12/19 12:00 01/14/20 09:06 DC 01/13/20 20:44 Clonazepam (KlonoPIN) 0.25 mg QAM PO 12/21/19 09:00 01/14/20 08:19 Clonazepam (KlonoPIN) 0.5 mg QAM PO 12/12/19 09:00 12/21/19 09:07 DC 12/21/19 08:21 Clonazepam (KlonoPIN) 0.75 mg QHS PO 12/25/19 21:00 01/13/20 20:43 Clonazepam (KlonoPIN) 1 mg QHS PO 12/11/19 21:00 12/25/19 09:11 DC 12/24/19 20:18 Cyclobenzaprine HCl (Flexeril) 5 mg BIDP PRN PO MUSCLE SPASMS 12/13/19 21:15 01/14/20 09:06 DC 01/13/20 22:35 Docusate Sodium (Colace) 100 mg BID PRN PO CONSTIPATION 12/11/19 19:00 01/14/20 09:06 DC 01/07/20 07:17 Haloperidol (Haldol) 5 mg BID PO 12/25/19 09:00 01/13/20 23:15 Haloperidol (Haldol) 5 mg Q6HP PRN PO AGITATION 12/28/19 10:15 01/12/20 15:21 Home Med (Med Rec Complete!) ASDIRECTED XX 12/11/19 18:45 12/11/19 18:40 DC Ibuprofen (Advil) 600 mg Q8HP PRN PO PAIN 12/28/19 10:15 01/04/20 10:46 DC 01/04/20 06:43 Lidocaine (Lidoderm Patch) 1 patch DAILY PRN TD LOWER BACK PAIN 12/12/19 09:00 01/13/20 10:50 Lorazepam (Ativan) 1 mg BIDP PRN PO ANXIETY/AGITATION 12/16/19 13:45 12/23/19 13:44 DC 12/23/19 04:49 Lorazepam (Ativan) 1 mg BIDP PRN PO ANXIETY/AGITATION 12/23/19 14:15 12/30/19 14:14 DC 12/29/19 21:02 Lorazepam (Ativan) 2 mg STAT STAT PO 12/25/19 11:20 12/25/19 11:22 DC 12/25/19 11:25 Magnesium Hydroxide (Milk Of Magnesia) 30 ml DAILYPRN PRN PO CONSTIPATION 12/11/19 19:00 01/02/20 13:18 Menthol/Methyl Salicylate (Bengay Cream) APPLY TO BILATERAL KNEES ... Q8H PRN TOP KNEE PAIN 12/11/19 19:00 01/14/20 09:06 DC 01/13/20 20:44 Miscellaneous (Unresolved Clarification Entry) SEE LABEL COMMENTS DAILY XX 01/06/20 09:00 01/06/20 09:42 DC Miscellaneous (Unresolved Clarification Entry) SEE LABEL COMMENTS DAILY XX 01/01/20 09:00 01/01/20 11:03 DC Nicotine (Nicoderm Cq 21mg) 1 patch DAILY TD 12/12/19 09:00 01/14/20 09:06 DC 01/13/20 08:19 Non-Formulary Medication ( See Comment Field Below ) REMOVE LIDODERM PATCH DAILY@21 XX 12/11/19 21:00 01/13/20 20:38 Olanzapine (ZyPREXA ZYDIS) 5 mg Q4HP PRN PO AGITATION 12/14/19 21:15 12/28/19 10:13 DC 12/26/19 08:27 Olanzapine (ZyPREXA ZYDIS) 5 mg QHS PO 12/11/19 21:00 12/12/19 11:49 DC 12/11/19 22:22 Ondansetron HCl (Zofran Odt) 4 mg Q8H PRN PO NAUSEA 12/11/19 19:00 01/14/20 09:06 DC 01/13/20 10:49 Paliperidone Palmitate (Invega Sustenna) 234 mg Q30D IM 12/22/19 09:00 12/25/19 09:11 DC 12/22/19 08:23 Phenyleph/Shark Oil/Min Oil/Petrol (Preparation H Ointment) BID PRN TOP hemorroids 01/02/20 10:30 01/14/20 09:06 DC 01/12/20 15:23 Polyethylene Glycol (Miralax) 1 pkt DAILY PRN PO CONSTIPATION 12/11/19 19:00 01/08/20 18:41 Risperidone (RisperDAL) 1 mg QHS PO 12/20/19 21:00 12/25/19 09:11 DC 8/27/20 20:07 Sucralfate (Carafate Suspension) 1 gm BID PO 12/15/19 21:00 01/14/20 08:19 Sucralfate (Carafate) 1 gm BID PO 12/11/19 21:00 12/15/19 12:59 DC 12/15/19 08:46 Allergies Coded Allergies: Penicillins (Unverified Allergy, Unknown, 12/14/19) diethylene glycol (Unverified Allergy, Unknown, 12/14/19) ALSO CALLED CARBITOL divalproex sodium (Unverified Allergy, Unknown, Unverified reaction. It is SUSPECT, 12/14/19) fluphenazine (Unverified Allergy, Unknown, UNVERIFIED REACTION. IT IS SUSPECT, 12/14/19) lithium (Unverified Allergy, Unknown, UNVERIFIED REACTION. IT IS SUSPECT., 12/14/19) meperidine (Unverified Allergy, Unknown, 12/14/19) metoclopramide (Unverified Allergy, Unknown, 12/14/19) olanzapine (Unverified Allergy, Unknown, 12/14/19) PT CANNOT VERBALIZE ACTUAL REACTION TO MEDICATION, HAS TAKEN PREVIOUS DOSES ON UNIT WITHOUT INCIDENT ranitidine (Unverified Allergy, Unknown, 12/14/19) risperidone (Unverified Allergy, Unknown, Unverified reaction. It is SUSPECT., 12/14/19) sertraline (Unverified Allergy, Unknown, Unverified reaction. It is SUSPECT, 12/14/19) acetaminophen (Verified Adverse Reaction, Unknown, PT HX HEP B, HEP C, 12/11/19) haloperidol (Verified Adverse Reaction, Unknown, makes me go crazy, 12/11/19) uNVERIFIED REACTION. IT IS SUSPECT SANDI MORAN NP Jan 14, 2020 10:03
[2020-01-14] MEDS: LIDOCAINE 5% (LIDODERM) PATCH TD PRN (10:12)
[2020-01-14 14:46] LABS: HEPATITIS A ANTIBODY IGM NEGATIVE (NEGATIVE); HEPATITIS B CORE ANTIBODY IGM NEGATIVE (NEGATIVE); HEPATITIS B SURFACE ANTIGEN NEGATIVE (NEGATIVE)
[2020-01-14 14:50] LABS: HEPATITIS C VIRUS ABY INDEX > 11.0 INDEX (<0.8)
[2020-01-14 18:13] VITALS: BP 140/80
[2020-01-14] MEDS ORDERED: LORazepam 1 MG TAB PO ONE (23:15)
[2020-01-14] MEDS ORDERED: diphenhydrAMINE 50MG CAP PO ONE (23:15)
[2020-01-15] MEDS: ACETAMINOPHEN TAB 650MG DOSE (2X325MG) PO PRN ×3 (02:48→19:45)
[2020-01-15 06:49] VITALS: BP 135/88
[2020-01-15] MEDS: clonazePAM 0.5 MG TAB PO SCH ×2 (08:14→20:05)
[2020-01-15] MEDS: SUCRALFATE SUSP 1GM/10ML UD PO SCH ×2 (08:14→20:05)
[2020-01-15] MEDS: haloperidoL 5 MG TAB PO SCH ×2 (09:00→20:22)
[2020-01-15] MEDS: LIDOCAINE 5% (LIDODERM) PATCH TD PRN (10:27)
[2020-01-15] MEDS ORDERED: BENZTROPINE MESYLATE 2MG/2ML VIAL IM ONE (10:45)
--- NOTE | 2020-01-15 16:16 | MHIPNPDOC ---
[facility] Progress Note Progress Note DATE OF SERVICE: 01/15/20 HISTORY: Patient was a 9.41 to [facility] of bizarre and delusional behaviors. She was exhibiting psychotic symptoms. VITAL SIGNS: See below. NEW TEST RESULTS: CURRENT MEDICATIONS: See below. MENTAL STATUS EXAMINATION: Patient is a 49 -year old female, who is admitted to [facility] for exacerbation of Bipolar Symptoms. She had improved about a week during this admission but she became non-compliant. She continues to have poor insight and judgment, reporting that all antipsychotics cause her some severe allergic reaction. She reports that medications that she has taken cause her kevin. She is unkempt and bizarre in her dress. Cooperative in the interview, she has normal eye contact Speech: Is spontaneous, milldly slower rate and volume that normal, at times slurred Language skills are fair. Thought processes including: disorganized and scattered at times. med-seeking behaviors. Loose Associations Thought content: racing thoughts, she is religiously preoccupied and music focused in her journal Abstract reasoning, and computation: poor at time of interview. Description of associations: Denies. She is somatic, has dichotomous reasoning Description of abnormal or psychotic thoughts: Delusional about medications, states that medications give her severe reactions. Judgment: Severely poor Insight: Poor Orientation: alert and oriented Recent and remote memory: intact Attention span and concentration: fair Language: expansive Fund of knowledge: average Mood: Hypomanic Affect: Flat, labile DIAGNOSES: 1. Bipolar, Recurrent, Manic Episode ASSESSMENT: Patient continues to demonstrate poor insight and judgment, she presents with med-seeking behaviors. MANAGEMENT PLAN: We will continue with Treatment Over Objection to administer medications that will stabilize the patient. Treatment plan to stabilize and discharge to home or [place] if she does not stabilize. TIME SPENT: 20 minutes. Vital Signs Vital Signs Date Time Temp Pulse Resp B/P (MAP) Pulse Ox O2 Delivery O2 Flow Rate FiO2 01/15/20 06:49 99.0 111 16 135/88 (104) 99 Room Air Current Medications Current Medications Medications (Trade) Dose Ordered Sig/Jackelyn Route PRN Reason Start Time Stop Time Status Last Admin Dose Admin Acetaminophen (Tylenol Tab) 650 mg Q6H PRN PO HEADACHE OR DISCOMFORT 12/11/19 19:00 12/28/19 10:13 DC 12/28/19 04:47 Acetaminophen (Tylenol Tab) 650 mg Q6HP PRN PO PAIN / FEVER 01/05/20 18:45 01/15/20 10:26 Al Hydrox/Mg Hydrox/Simethicone (Mylanta) 30 ml Q4H PRN PO HEARTBURN/INDIGESTION 12/11/19 19:00 01/03/20 12:56 Albuterol Sulfate (Proventil, Ventolin Hfa) 2 puff Q6H PRN INH SHORTNESS OF BREATH 12/11/19 18:00 01/13/20 22:35 Aripiprazole (AbiLIFY) 5 mg QHS PO 12/11/19 21:00 12/11/19 18:00 DC Aripiprazole (AbiLIFY) 5 mg QHS PO 12/12/19 21:00 12/15/19 12:54 DC 12/13/19 21:21 Cariprazine (Vraylar) 3 mg QHS PO 12/15/19 21:00 12/25/19 09:11 DC 12/21/19 20:18 Cetylpyridinium Chloride (Cepacol) 1 karoline Q6H PRN PO SORE THROAT 12/12/19 12:00 01/14/20 09:06 DC 01/13/20 20:44 Clonazepam (KlonoPIN) 0.25 mg QAM PO 12/21/19 09:00 01/15/20 08:14 Clonazepam (KlonoPIN) 0.5 mg QAM PO 12/12/19 09:00 12/21/19 09:07 DC 12/21/19 08:21 Clonazepam (KlonoPIN) 0.75 mg QHS PO 12/25/19 21:00 01/14/20 20:12 Clonazepam (KlonoPIN) 1 mg QHS PO 12/11/19 21:00 12/25/19 09:11 DC 12/24/19 20:18 Cyclobenzaprine HCl (Flexeril) 5 mg BIDP PRN PO MUSCLE SPASMS 12/13/19 21:15 01/14/20 09:06 DC 01/13/20 22:35 Docusate Sodium (Colace) 100 mg BID PRN PO CONSTIPATION 12/11/19 19:00 01/14/20 09:06 DC 01/07/20 07:17 Haloperidol (Haldol) 5 mg BID PO 12/25/19 09:00 01/14/20 23:16 Haloperidol (Haldol) 5 mg Q6HP PRN PO AGITATION 12/28/19 10:15 01/12/20 15:21 Home Med (Med Rec Complete!) ASDIRECTED XX 12/11/19 18:45 12/11/19 18:40 DC Ibuprofen (Advil) 600 mg Q8HP PRN PO PAIN 12/28/19 10:15 01/04/20 10:46 DC 01/04/20 06:43 Lidocaine (Lidoderm Patch) 1 patch DAILY PRN TD LOWER BACK PAIN 12/12/19 09:00 01/15/20 10:27 Lorazepam (Ativan) 1 mg BIDP PRN PO ANXIETY/AGITATION 12/16/19 13:45 12/23/19 13:44 DC 12/23/19 04:49 Lorazepam (Ativan) 1 mg BIDP PRN PO ANXIETY/AGITATION 12/23/19 14:15 12/30/19 14:14 DC 12/29/19 21:02 Lorazepam (Ativan) 2 mg STAT STAT PO 12/25/19 11:20 12/25/19 11:22 DC 12/25/19 11:25 Magnesium Hydroxide (Milk Of Magnesia) 30 ml DAILYPRN PRN PO CONSTIPATION 12/11/19 19:00 01/02/20 13:18 Menthol/Methyl Salicylate (Bengay Cream) APPLY TO BILATERAL KNEES ... Q8H PRN TOP KNEE PAIN 12/11/19 19:00 01/14/20 09:06 DC 01/13/20 20:44 Miscellaneous (Unresolved Clarification Entry) SEE LABEL COMMENTS DAILY XX 01/06/20 09:00 01/06/20 09:42 DC Miscellaneous (Unresolved Clarification Entry) SEE LABEL COMMENTS DAILY XX 01/01/20 09:00 01/01/20 11:03 DC Nicotine (Nicoderm Cq 21mg) 1 patch DAILY TD 12/12/19 09:00 01/14/20 09:06 DC 01/13/20 08:19 Non-Formulary Medication ( See Comment Field Below ) REMOVE LIDODERM PATCH DAILY@21 XX 12/11/19 21:00 01/14/20 21:06 Olanzapine (ZyPREXA ZYDIS) 5 mg Q4HP PRN PO AGITATION 12/14/19 21:15 12/28/19 10:13 DC 12/26/19 08:27 Olanzapine (ZyPREXA ZYDIS) 5 mg QHS PO 12/11/19 21:00 12/12/19 11:49 DC 12/11/19 22:22 Ondansetron HCl (Zofran Odt) 4 mg Q8H PRN PO NAUSEA 12/11/19 19:00 01/14/20 09:06 DC 01/13/20 10:49 Paliperidone Palmitate (Invega Sustenna) 234 mg Q30D IM 12/22/19 09:00 12/25/19 09:11 DC 12/22/19 08:23 Phenyleph/Shark Oil/Min Oil/Petrol (Preparation H Ointment) BID PRN TOP hemorroids 01/02/20 10:30 01/14/20 09:06 DC 01/12/20 15:23 Polyethylene Glycol (Miralax) 1 pkt DAILY PRN PO CONSTIPATION 12/11/19 19:00 01/08/20 18:41 Risperidone (RisperDAL) 1 mg QHS PO 12/20/19 21:00 12/25/19 09:11 DC 12/20/19 20:07 Sucralfate (Carafate Suspension) 1 gm BID PO 12/15/19 21:00 01/15/20 08:14 Sucralfate (Carafate) 1 gm BID PO 12/11/19 21:00 12/15/19 12:59 DC 12/15/19 08:46 Allergies Coded Allergies: Penicillins (Unverified Allergy, Unknown, 12/14/19) diethylene glycol (Unverified Allergy, Unknown, 12/14/19) ALSO CALLED CARBITOL divalproex sodium (Unverified Allergy, Unknown, Unverified reaction. It is SUSPECT, 12/14/19) fluphenazine (Unverified Allergy, Unknown, UNVERIFIED REACTION. IT IS SUSPECT, 12/14/19) lithium (Unverified Allergy, Unknown, UNVERIFIED REACTION. IT IS SUSPECT., 12/14/19) meperidine (Unverified Allergy, Unknown, 12/14/19) metoclopramide (Unverified Allergy, Unknown, 12/14/19) olanzapine (Unverified Allergy, Unknown, 12/14/19) PT CANNOT VERBALIZE ACTUAL REACTION TO MEDICATION, HAS TAKEN PREVIOUS DOSES ON UNIT WITHOUT INCIDENT ranitidine (Unverified Allergy, Unknown, 12/14/19) risperidone (Unverified Allergy, Unknown, Unverified reaction. It is SUSPECT., 12/14/19) sertraline (Unverified Allergy, Unknown, Unverified reaction. It is SUSPECT, 12/14/19) acetaminophen (Verified Adverse Reaction, Unknown, PT HX HEP B, HEP C, 12/11/19) haloperidol (Verified Adverse Reaction, Unknown, makes me go crazy, 12/11/19) uNVERIFIED REACTION. IT IS SUSPECT SANDI MORAN NP Jan 15, 2020 16:16
[2020-01-16] MEDS ORDERED: LORazepam 1 MG TAB PO ONE (03:45)
[2020-01-16 07:12] VITALS: BP 146/75
[2020-01-16] MEDS: clonazePAM 0.5 MG TAB PO SCH ×2 (08:24→20:58)
[2020-01-16] MEDS: SUCRALFATE SUSP 1GM/10ML UD PO SCH ×2 (08:24→20:57)
[2020-01-16] MEDS: LIDOCAINE 5% (LIDODERM) PATCH TD PRN (08:25)
[2020-01-16] MEDS: ACETAMINOPHEN TAB 650MG DOSE (2X325MG) PO PRN ×2 (08:26→18:35)
[2020-01-16] MEDS: haloperidoL 5 MG TAB PO SCH ×2 (08:59→20:59)
--- NOTE | 2020-01-16 09:06 | MHIPNPDOC ---
[facility] Progress Note Progress Note DATE OF SERVICE: 01/16/20 HISTORY: Patient was a 9.41 to [facility] of bizarre and delusional behaviors. She was exhibiting psychotic symptoms. VITAL SIGNS: See below. NEW TEST RESULTS: CURRENT MEDICATIONS: See below. MENTAL STATUS EXAMINATION: Patient is a 49 -year old female, who is admitted to [facility] for exacerbation of Bipolar Symptoms. She is non-compliant. She continues to have poor insight and judgment, reporting that all antipsychotics cause her some severe allergic reaction. She reports that medications that she has taken cause her kevin. She is unkempt and bizarre in her dress. Cooperative in the interview, she has normal eye contact Speech: Is spontaneous, mildly slower rate and volume that normal, at times slurred Language skills are fair. Thought processes including: Mostly linear but has flight of ideas Thought content: racing thoughts, she is religiously preoccupied and music focused in her journal Abstract reasoning, and computation: poor at time of interview. Description of associations: Denies. She is somatic, has dichotomous reasoning Description of abnormal or psychotic thoughts: Delusional about medications, states that medications give her severe reactions. Judgment: Severely poor Insight: Poor Orientation: alert and oriented Recent and remote memory: intact Attention span and concentration: fair Language: expansive Fund of knowledge: average Mood: Hypomanic, mildly depressed Affect: Flat, labile DIAGNOSES: 1. Bipolar, Recurrent, Manic Episode ASSESSMENT: Patient talks about wanting to stay with a former patient and buying a dog from another former patient. Is very focused on dogs and breeds and getting a new dog. She continues to ask for Nicotine patch. States that she is agreeable to 14 mg patch. Reinforced that she had been sucking on this. Patient is requesting Invega Sustenna and states she cannot take other antipsychotics. MANAGEMENT PLAN: We will continue with Treatment Over Objection to administer medications that will stabilize the patient. Treatment plan to stabilize and discharge to home or [place] if she does not stabilize. TIME SPENT: 20 minutes. Vital Signs Vital Signs Date Time Temp Pulse Resp B/P (MAP) Pulse Ox O2 Delivery O2 Flow Rate FiO2 01/16/20 07:12 99.3 107 20 146/75 (98) 98 Room Air Current Medications Current Medications Medications (Trade) Dose Ordered Sig/Jackelyn Route PRN Reason Start Time Stop Time Status Last Admin Dose Admin Acetaminophen (Tylenol Tab) 650 mg Q6H PRN PO HEADACHE OR DISCOMFORT 12/11/19 19:00 12/28/19 10:13 DC 12/28/19 04:47 Acetaminophen (Tylenol Tab) 650 mg Q6HP PRN PO PAIN / FEVER 01/05/20 18:45 01/16/20 08:26 Al Hydrox/Mg Hydrox/Simethicone (Mylanta) 30 ml Q4H PRN PO HEARTBURN/INDIGESTION 12/11/19 19:00 01/03/20 12:56 Albuterol Sulfate (Proventil, Ventolin Hfa) 2 puff Q6H PRN INH SHORTNESS OF BREATH 12/11/19 18:00 01/13/20 22:35 Aripiprazole (AbiLIFY) 5 mg QHS PO 12/11/19 21:00 12/11/19 18:00 DC Aripiprazole (AbiLIFY) 5 mg QHS PO 12/12/19 21:00 12/15/19 12:54 DC 12/13/19 21:21 Cariprazine (Vraylar) 3 mg QHS PO 12/15/19 21:00 12/25/19 09:11 DC 12/21/19 20:18 Cetylpyridinium Chloride (Cepacol) 1 karoline Q6H PRN PO SORE THROAT 12/12/19 12:00 01/14/20 09:06 DC 01/13/20 20:44 Clonazepam (KlonoPIN) 0.25 mg QAM PO 12/21/19 09:00 01/16/20 08:24 Clonazepam (KlonoPIN) 0.5 mg QAM PO 12/12/19 09:00 12/21/19 09:07 DC 12/21/19 08:21 Clonazepam (KlonoPIN) 0.75 mg QHS PO 12/25/19 21:00 01/15/20 20:05 Clonazepam (KlonoPIN) 1 mg QHS PO 12/11/19 21:00 12/25/19 09:11 DC 12/24/19 20:18 Cyclobenzaprine HCl (Flexeril) 5 mg BIDP PRN PO MUSCLE SPASMS 12/13/19 21:15 01/14/20 09:06 DC 01/13/20 22:35 Docusate Sodium (Colace) 100 mg BID PRN PO CONSTIPATION 12/11/19 19:00 01/14/20 09:06 DC 01/07/20 07:17 Haloperidol (Haldol) 5 mg BID PO 12/25/19 09:00 01/14/20 23:16 Haloperidol (Haldol) 5 mg Q6HP PRN PO AGITATION 12/28/19 10:15 01/12/20 15:21 Home Med (Med Rec Complete!) ASDIRECTED XX 12/11/19 18:45 12/11/19 18:40 DC Ibuprofen (Advil) 600 mg Q8HP PRN PO PAIN 12/28/19 10:15 01/04/20 10:46 DC 01/04/20 06:43 Lidocaine (Lidoderm Patch) 1 patch DAILY PRN TD LOWER BACK PAIN 12/12/19 09:00 01/16/20 08:25 Lorazepam (Ativan) 1 mg BIDP PRN PO ANXIETY/AGITATION 12/16/19 13:45 12/23/19 13:44 DC 12/23/19 04:49 Lorazepam (Ativan) 1 mg BIDP PRN PO ANXIETY/AGITATION 12/23/19 14:15 12/30/19 14:14 DC 12/29/19 21:02 Lorazepam (Ativan) 2 mg STAT STAT PO 12/25/19 11:20 12/25/19 11:22 DC 12/25/19 11:25 Magnesium Hydroxide (Milk Of Magnesia) 30 ml DAILYPRN PRN PO CONSTIPATION 12/11/19 19:00 01/02/20 13:18 Menthol/Methyl Salicylate (Bengay Cream) APPLY TO BILATERAL KNEES ... Q8H PRN TOP KNEE PAIN 12/11/19 19:00 01/14/20 09:06 DC 01/13/20 20:44 Miscellaneous (Unresolved Clarification Entry) SEE LABEL COMMENTS DAILY XX 01/06/20 09:00 01/06/20 09:42 DC Miscellaneous (Unresolved Clarification Entry) SEE LABEL COMMENTS DAILY XX 01/01/20 09:00 01/01/20 11:03 DC Nicotine (Nicoderm Cq 21mg) 1 patch DAILY TD 12/12/19 09:00 01/14/20 09:06 DC 01/13/20 08:19 Non-Formulary Medication ( See Comment Field Below ) REMOVE LIDODERM PATCH DAILY@21 XX 12/11/19 21:00 01/15/20 20:22 Olanzapine (ZyPREXA ZYDIS) 5 mg Q4HP PRN PO AGITATION 12/14/19 21:15 12/28/19 10:13 DC 12/26/19 08:27 Olanzapine (ZyPREXA ZYDIS) 5 mg QHS PO 12/11/19 21:00 12/12/19 11:49 DC 12/11/19 22:22 Ondansetron HCl (Zofran Odt) 4 mg Q8H PRN PO NAUSEA 12/11/19 19:00 01/14/20 09:06 DC 01/13/20 10:49 Paliperidone Palmitate (Invega Sustenna) 234 mg Q30D IM 12/22/19 09:00 12/25/19 09:11 DC 12/22/19 08:23 Phenyleph/Shark Oil/Min Oil/Petrol (Preparation H Ointment) BID PRN TOP hemorroids 01/02/20 10:30 01/14/20 09:06 DC 01/12/20 15:23 Polyethylene Glycol (Miralax) 1 pkt DAILY PRN PO CONSTIPATION 12/11/19 19:00 01/08/20 18:41 Risperidone (RisperDAL) 1 mg QHS PO 12/20/19 21:00 12/25/19 09:11 DC 12/20/19 20:07 Sucralfate (Carafate Suspension) 1 gm BID PO 12/15/19 21:00 01/16/20 08:24 Sucralfate (Carafate) 1 gm BID PO 12/11/19 21:00 12/15/19 12:59 DC 12/15/19 08:46 Allergies Coded Allergies: Penicillins (Unverified Allergy, Unknown, 12/14/19) diethylene glycol (Unverified Allergy, Unknown, 12/14/19) ALSO CALLED CARBITOL divalproex sodium (Unverified Allergy, Unknown, Unverified reaction. It is SUSPECT, 12/14/19) fluphenazine (Unverified Allergy, Unknown, UNVERIFIED REACTION. IT IS SUSPECT, 12/14/19) lithium (Unverified Allergy, Unknown, UNVERIFIED REACTION. IT IS SUSPECT., 12/14/19) meperidine (Unverified Allergy, Unknown, 12/14/19) metoclopramide (Unverified Allergy, Unknown, 12/14/19) olanzapine (Unverified Allergy, Unknown, 12/14/19) PT CANNOT VERBALIZE ACTUAL REACTION TO MEDICATION, HAS TAKEN PREVIOUS DOSES ON UNIT WITHOUT INCIDENT ranitidine (Unverified Allergy, Unknown, 12/14/19) risperidone (Unverified Allergy, Unknown, Unverified reaction. It is SUSPECT., 12/14/19) sertraline (Unverified Allergy, Unknown, Unverified reaction. It is SUSPECT, 12/14/19) acetaminophen (Verified Adverse Reaction, Unknown, PT HX HEP B, HEP C, 12/11/19) haloperidol (Verified Adverse Reaction, Unknown, makes me go crazy, 12/11/19) uNVERIFIED REACTION. IT IS SUSPECT SANDI MORAN NP Jan 16, 2020 09:06
[2020-01-16] MEDS ORDERED: TOPIRAMATE (TopAMAX) 100 MG TAB PO ONE (15:15)
[2020-01-16 15:42] VITALS: BP 144/82
[2020-01-16] MEDS: MIRALAX *UNIT DOSE* 17GM PACKET PO PRN (21:45)
[2020-01-17] MEDS: ACETAMINOPHEN TAB 650MG DOSE (2X325MG) PO PRN ×3 (04:37→22:59)
[2020-01-17 06:43] VITALS: BP 129/82
[2020-01-17] MEDS: haloperidoL 5 MG TAB PO SCH ×2 (08:31→20:16)
[2020-01-17] MEDS: SUCRALFATE SUSP 1GM/10ML UD PO SCH ×2 (08:32→20:16)
[2020-01-17] MEDS: clonazePAM 0.5 MG TAB PO SCH ×2 (08:33→20:15)
[2020-01-17] MEDS: PILL CUTTER 1 EACH XX PRN (08:33)
[2020-01-17] MEDS: TOPIRAMATE (TopAMAX) 100 MG TAB PO SCH ×2 (09:26→20:16)
[2020-01-17] MEDS ORDERED: PALIPERIDONE PALMITATE 234MG/1.5ML INJ (INVEGA)(FREE PSY INPT ONLY) IM ONE (10:00)
--- NOTE | 2020-01-17 14:20 | MHIPNPDOC ---
[facility] Progress Note Progress Note DATE OF SERVICE: 01/17/20 HISTORY: Patient was a 9.41 to [facility] of bizarre and delusional behaviors. She was exhibiting psychotic symptoms. VITAL SIGNS: See below. NEW TEST RESULTS: CURRENT MEDICATIONS: See below. MENTAL STATUS EXAMINATION: Patient is a 49 -year old female, who is admitted to [facility] for exacerbation of Bipolar Symptoms. She is non-compliant. She continues to have poor insight and judgment, reporting that all antipsychotics cause her some severe allergic reaction. She reports that medications that she has taken cause her kevin. She is unkempt and less bizarre in her dress. Cooperative in the interview, she has normal eye contact Speech: Is spontaneous, mildly slower rate and volume that normal, at times slurred Language skills are fair. Thought processes including: Mostly linear but has flight of ideas Thought content: racing thoughts, she is religiously preoccupied and music focused in her journal Abstract reasoning, and computation: poor at time of interview. Description of associations: Denies. She is somatic, has dichotomous reasoning Description of abnormal or psychotic thoughts: Delusional about medications, states that medications give her severe reactions. Judgment: Severely poor Insight: Poor Orientation: alert and oriented Recent and remote memory: intact Attention span and concentration: fair Language: expansive Fund of knowledge: average Mood: Hypomanic, mildly depressed Affect: Flat, labile DIAGNOSES: 1. Bipolar, Recurrent, Manic Episode ASSESSMENT: Patient is requesting Invega Sustenna and states she cannot take other antipsychotics. Ordered Invega Sustenna 234 mg IM today, also Topamax 100 mg twice daily MANAGEMENT PLAN: We will continue with Treatment Over Objection to administer medications that will stabilize the patient. Treatment plan to stabilize and discharge to home or [place] if she does not stabilize. TIME SPENT: 20 minutes. Vital Signs Vital Signs Date Time Temp Pulse Resp B/P (MAP) Pulse Ox O2 Delivery O2 Flow Rate FiO2 01/17/20 06:43 96.9 99 16 129/82 (98) Room Air 01/16/20 07:12 98 Current Medications Current Medications Medications (Trade) Dose Ordered Sig/Jackelyn Route PRN Reason Start Time Stop Time Status Last Admin Dose Admin Acetaminophen (Tylenol Tab) 650 mg Q6H PRN PO HEADACHE OR DISCOMFORT 12/11/19 19:00 12/28/19 10:13 DC 12/28/19 04:47 Acetaminophen (Tylenol Tab) 650 mg Q6HP PRN PO PAIN / FEVER 01/05/20 18:45 01/17/20 04:37 Al Hydrox/Mg Hydrox/Simethicone (Mylanta) 30 ml Q4H PRN PO HEARTBURN/INDIGESTION 12/11/19 19:00 01/03/20 12:56 Albuterol Sulfate (Proventil, Ventolin Hfa) 2 puff Q6H PRN INH SHORTNESS OF BREATH 12/11/19 18:00 01/13/20 22:35 Aripiprazole (AbiLIFY) 5 mg QHS PO 12/11/19 21:00 12/11/19 18:00 DC Aripiprazole (AbiLIFY) 5 mg QHS PO 12/12/19 21:00 12/15/19 12:54 DC 12/13/19 21:21 Cariprazine (Vraylar) 3 mg QHS PO 12/15/19 21:00 12/25/19 09:11 DC 12/21/19 20:18 Cetylpyridinium Chloride (Cepacol) 1 karoline Q6H PRN PO SORE THROAT 12/12/19 12:00 01/14/20 09:06 DC 01/13/20 20:44 Clonazepam (KlonoPIN) 0.25 mg QAM PO 12/21/19 09:00 01/17/20 08:33 Clonazepam (KlonoPIN) 0.5 mg QAM PO 12/12/19 09:00 12/21/19 09:07 DC 12/21/19 08:21 Clonazepam (KlonoPIN) 0.75 mg QHS PO 12/25/19 21:00 01/16/20 20:58 Clonazepam (KlonoPIN) 1 mg QHS PO 12/11/19 21:00 12/25/19 09:11 DC 12/24/19 20:18 Cyclobenzaprine HCl (Flexeril) 5 mg BIDP PRN PO MUSCLE SPASMS 12/13/19 21:15 01/14/20 09:06 DC 01/13/20 22:35 Docusate Sodium (Colace) 100 mg BID PRN PO CONSTIPATION 12/11/19 19:00 01/14/20 09:06 DC 01/07/20 07:17 Haloperidol (Haldol) 5 mg BID PO 12/25/19 09:00 01/14/20 23:16 Haloperidol (Haldol) 5 mg Q6HP PRN PO AGITATION 12/28/19 10:15 01/12/20 15:21 Home Med (Med Rec Complete!) ASDIRECTED XX 12/11/19 18:45 12/11/19 18:40 DC Ibuprofen (Advil) 600 mg Q8HP PRN PO PAIN 12/28/19 10:15 01/04/20 10:46 DC 01/04/20 06:43 Lidocaine (Lidoderm Patch) 1 patch DAILY PRN TD LOWER BACK PAIN 12/12/19 09:00 01/16/20 08:25 Lorazepam (Ativan) 1 mg BIDP PRN PO ANXIETY/AGITATION 12/16/19 13:45 12/23/19 13:44 DC 12/23/19 04:49 Lorazepam (Ativan) 1 mg BIDP PRN PO ANXIETY/AGITATION 12/23/19 14:15 12/30/19 14:14 DC 12/29/19 21:02 Lorazepam (Ativan) 2 mg STAT STAT PO 12/25/19 11:20 12/25/19 11:22 DC 12/25/19 11:25 Magnesium Hydroxide (Milk Of Magnesia) 30 ml DAILYPRN PRN PO CONSTIPATION 12/11/19 19:00 01/02/20 13:18 Menthol/Methyl Salicylate (Bengay Cream) APPLY TO BILATERAL KNEES ... Q8H PRN TOP KNEE PAIN 12/11/19 19:00 01/14/20 09:06 DC 01/13/20 20:44 Miscellaneous (Unresolved Clarification Entry) SEE LABEL COMMENTS DAILY XX 01/06/20 09:00 01/06/20 09:42 DC Miscellaneous (Unresolved Clarification Entry) SEE LABEL COMMENTS DAILY XX 01/01/20 09:00 01/01/20 11:03 DC Nicotine (Nicoderm Cq 21mg) 1 patch DAILY TD 12/12/19 09:00 01/14/20 09:06 DC 01/13/20 08:19 Non-Formulary Medication ( See Comment Field Below ) REMOVE LIDODERM PATCH DAILY@21 XX 12/11/19 21:00 01/16/20 20:59 Olanzapine (ZyPREXA ZYDIS) 5 mg Q4HP PRN PO AGITATION 12/14/19 21:15 12/28/19 10:13 DC 12/26/19 08:27 Olanzapine (ZyPREXA ZYDIS) 5 mg QHS PO 12/11/19 21:00 12/12/19 11:49 DC 12/11/19 22:22 Ondansetron HCl (Zofran Odt) 4 mg Q8H PRN PO NAUSEA 12/11/19 19:00 01/14/20 09:06 DC 01/13/20 10:49 Paliperidone Palmitate (Invega Sustenna) 234 mg Q30D IM 12/22/19 09:00 12/25/19 09:11 DC 12/22/19 08:23 Phenyleph/Shark Oil/Min Oil/Petrol (Preparation H Ointment) BID PRN TOP hemorroids 01/02/20 10:30 01/14/20 09:06 DC 01/12/20 15:23 Polyethylene Glycol (Miralax) 1 pkt DAILY PRN PO CONSTIPATION 12/11/19 19:00 01/16/20 21:45 Risperidone (RisperDAL) 1 mg QHS PO 12/20/19 21:00 12/25/19 09:11 DC 12/20/19 20:07 Sucralfate (Carafate Suspension) 1 gm BID PO 12/15/19 21:00 01/17/20 08:32 Sucralfate (Carafate) 1 gm BID PO 12/11/19 21:00 12/15/19 12:59 DC 12/15/19 08:46 Topiramate (TopAMAX) 100 mg BID PO 01/17/20 09:00 01/17/20 09:26 Allergies Coded Allergies: Penicillins (Unverified Allergy, Unknown, 12/14/19) diethylene glycol (Unverified Allergy, Unknown, 12/14/19) ALSO CALLED CARBITOL divalproex sodium (Unverified Allergy, Unknown, Unverified reaction. It is SUSPECT, 12/14/19) fluphenazine (Unverified Allergy, Unknown, UNVERIFIED REACTION. IT IS SUSPECT, 12/14/19) lithium (Unverified Allergy, Unknown, UNVERIFIED REACTION. IT IS SUSPECT., 12/14/19) meperidine (Unverified Allergy, Unknown, 12/14/19) metoclopramide (Unverified Allergy, Unknown, 12/14/19) olanzapine (Unverified Allergy, Unknown, 12/14/19) PT CANNOT VERBALIZE ACTUAL REACTION TO MEDICATION, HAS TAKEN PREVIOUS DOSES ON UNIT WITHOUT INCIDENT ranitidine (Unverified Allergy, Unknown, 12/14/19) risperidone (Unverified Allergy, Unknown, Unverified reaction. It is SUSPECT., 12/14/19) sertraline (Unverified Allergy, Unknown, Unverified reaction. It is SUSPECT, 12/14/19) acetaminophen (Verified Adverse Reaction, Unknown, PT HX HEP B, HEP C, 12/11/19) haloperidol (Verified Adverse Reaction, Unknown, makes me go crazy, 12/11/19) uNVERIFIED REACTION. IT IS SUSPECT SANDI MORAN NP Jan 17, 2020 14:20
[2020-01-17 18:40] VITALS: BP 123/58
[2020-01-17] MEDS: ALBUTEROL 90 MCG/ACT 8GM HFA INHALER INH PRN (20:15)
[2020-01-18 06:52] VITALS: BP 130/70
[2020-01-18] MEDS: clonazePAM 0.5 MG TAB PO SCH ×2 (08:35→20:55)
[2020-01-18] MEDS: TOPIRAMATE (TopAMAX) 100 MG TAB PO SCH ×2 (08:35→20:54)
[2020-01-18] MEDS: SUCRALFATE SUSP 1GM/10ML UD PO SCH ×2 (08:35→20:54)
[2020-01-18] MEDS: haloperidoL 5 MG TAB PO SCH ×2 (09:00→21:00)
[2020-01-18] MEDS: ACETAMINOPHEN TAB 650MG DOSE (2X325MG) PO PRN ×2 (09:54→20:59)
[2020-01-18] MEDS: LIDOCAINE 5% (LIDODERM) PATCH TD PRN (11:02)
--- NOTE | 2020-01-18 12:26 | MHIPNPDOC ---
[facility] Progress Note Progress Note DATE OF SERVICE: 01/18/20 HISTORY: This is Day 40 for this admission, Patient was a 9.41 to [facility] of bizarre and delusional behaviors. She was exhibiting psychotic symptoms. VITAL SIGNS: See below. NEW TEST RESULTS: CURRENT MEDICATIONS: See below. MENTAL STATUS EXAMINATION: Patient is a 49 -year old female, who is admitted to [facility] for exacerbation of Bipolar Symptoms. She is compliant with Invega 234 mg IM. She appears older than her stated age. She is dressed appropriately, and less bizarre in her dress. Hygiene and grooming has improved. Cooperative in the interview, she has normal eye contact Speech: Is spontaneous, fluid, mildly slower rate and volume that normal Language skills are fair. Thought processes including: Mostly linear Thought content: racing thoughts, she is preoccupied and nicotine patch today. Abstract reasoning, and computation: fair Description of associations: Denies. She is somatic, has dichotomous reasoning Description of abnormal or psychotic thoughts: none Judgment: Fair Insight: Fair Orientation: alert and oriented to person place time and situation Recent and remote memory: intact Attention span and concentration: fair Language: expansive Fund of knowledge: average Mood: mildly depressed Affect: Flat DIAGNOSES: 1. Bipolar, Recurrent, Manic Episode ASSESSMENT: Patient is requesting Nicotine and Pain patch. Also requesting MANAGEMENT PLAN: We will continue with Treatment Over Objection until Tuesday, if patient has been compliant with Topamax we will not move forward with court. If patient does not comply and becomes less stable we will move forward with court hearing for T.O.O and transfer to [place] if she does not stabilize. TIME SPENT: 20 minutes. Vital Signs Vital Signs Date Time Temp Pulse Resp B/P (MAP) Pulse Ox O2 Delivery O2 Flow Rate FiO2 01/18/20 06:52 97.5 94 12 130/70 (90) Room Air 01/16/20 07:12 98 Current Medications Current Medications Medications (Trade) Dose Ordered Sig/Jackelyn Route PRN Reason Start Time Stop Time Status Last Admin Dose Admin Acetaminophen (Tylenol Tab) 650 mg Q6H PRN PO HEADACHE OR DISCOMFORT 12/11/19 19:00 12/28/19 10:13 DC 12/28/19 04:47 Acetaminophen (Tylenol Tab) 650 mg Q6HP PRN PO PAIN / FEVER 9/12/20 18:45 01/18/20 09:54 Al Hydrox/Mg Hydrox/Simethicone (Mylanta) 30 ml Q4H PRN PO HEARTBURN/INDIGESTION 12/11/19 19:00 01/03/20 12:56 Albuterol Sulfate (Proventil, Ventolin Hfa) 2 puff Q6H PRN INH SHORTNESS OF BREATH 12/11/19 18:00 01/17/20 20:15 Aripiprazole (AbiLIFY) 5 mg QHS PO 12/11/19 21:00 12/11/19 18:00 DC Aripiprazole (AbiLIFY) 5 mg QHS PO 12/12/19 21:00 12/15/19 12:54 DC 12/13/19 21:21 Cariprazine (Vraylar) 3 mg QHS PO 12/15/19 21:00 12/25/19 09:11 DC 12/21/19 20:18 Cetylpyridinium Chloride (Cepacol) 1 karoline Q6H PRN PO SORE THROAT 12/12/19 12:00 01/14/20 09:06 DC 01/13/20 20:44 Clonazepam (KlonoPIN) 0.25 mg QAM PO 12/21/19 09:00 01/18/20 08:35 Clonazepam (KlonoPIN) 0.5 mg QAM PO 12/12/19 09:00 12/21/19 09:07 DC 12/21/19 08:21 Clonazepam (KlonoPIN) 0.75 mg QHS PO 12/25/19 21:00 01/17/20 20:15 Clonazepam (KlonoPIN) 1 mg QHS PO 12/11/19 21:00 12/25/19 09:11 DC 12/24/19 20:18 Cyclobenzaprine HCl (Flexeril) 5 mg BIDP PRN PO MUSCLE SPASMS 12/13/19 21:15 01/14/20 09:06 DC 01/13/20 22:35 Docusate Sodium (Colace) 100 mg BID PRN PO CONSTIPATION 12/11/19 19:00 01/14/20 09:06 DC 01/07/20 07:17 Haloperidol (Haldol) 5 mg BID PO 12/25/19 09:00 01/14/20 23:16 Haloperidol (Haldol) 5 mg Q6HP PRN PO AGITATION 12/28/19 10:15 01/12/20 15:21 Home Med (Med Rec Complete!) ASDIRECTED XX 12/11/19 18:45 12/11/19 18:40 DC Ibuprofen (Advil) 600 mg Q8HP PRN PO PAIN 12/28/19 10:15 01/04/20 10:46 DC 01/04/20 06:43 Lidocaine (Lidoderm Patch) 1 patch DAILY PRN TD LOWER BACK PAIN 12/12/19 09:00 01/18/20 11:02 Lorazepam (Ativan) 1 mg BIDP PRN PO ANXIETY/AGITATION 12/16/19 13:45 12/23/19 13:44 DC 12/23/19 04:49 Lorazepam (Ativan) 1 mg BIDP PRN PO ANXIETY/AGITATION 12/23/19 14:15 12/30/19 14:14 DC 12/29/19 21:02 Lorazepam (Ativan) 2 mg STAT STAT PO 12/25/19 11:20 12/25/19 11:22 DC 12/25/19 11:25 Magnesium Hydroxide (Milk Of Magnesia) 30 ml DAILYPRN PRN PO CONSTIPATION 12/11/19 19:00 01/02/20 13:18 Menthol/Methyl Salicylate (Bengay Cream) APPLY TO BILATERAL KNEES ... Q8H PRN TOP KNEE PAIN 12/11/19 19:00 01/14/20 09:06 DC 01/13/20 20:44 Miscellaneous (Unresolved Clarification Entry) SEE LABEL COMMENTS DAILY XX 01/06/20 09:00 01/06/20 09:42 DC Miscellaneous (Unresolved Clarification Entry) SEE LABEL COMMENTS DAILY XX 01/01/20 09:00 01/01/20 11:03 DC Nicotine (Nicoderm Cq 21mg) 1 patch DAILY TD 12/12/19 09:00 01/14/20 09:06 DC 01/13/20 08:19 Non-Formulary Medication ( See Comment Field Below ) REMOVE LIDODERM PATCH DAILY@21 XX 12/11/19 21:00 01/17/20 20:21 Olanzapine (ZyPREXA ZYDIS) 5 mg Q4HP PRN PO AGITATION 12/14/19 21:15 12/28/19 10:13 DC 12/26/19 08:27 Olanzapine (ZyPREXA ZYDIS) 5 mg QHS PO 12/11/19 21:00 12/12/19 11:49 DC 12/11/19 22:22 Ondansetron HCl (Zofran Odt) 4 mg Q8H PRN PO NAUSEA 12/11/19 19:00 01/14/20 09:06 DC 01/13/20 10:49 Paliperidone Palmitate (Invega Sustenna) 234 mg Q30D IM 12/22/19 09:00 12/25/19 09:11 DC 12/22/19 08:23 Phenyleph/Shark Oil/Min Oil/Petrol (Preparation H Ointment) BID PRN TOP hemorroids 01/02/20 10:30 01/14/20 09:06 DC 01/12/20 15:23 Polyethylene Glycol (Miralax) 1 pkt DAILY PRN PO CONSTIPATION 12/11/19 19:00 01/16/20 21:45 Risperidone (RisperDAL) 1 mg QHS PO 12/20/19 21:00 12/25/19 09:11 DC 12/20/19 20:07 Sucralfate (Carafate Suspension) 1 gm BID PO 12/15/19 21:00 01/18/20 08:35 Sucralfate (Carafate) 1 gm BID PO 12/11/19 21:00 12/15/19 12:59 DC 12/15/19 08:46 Topiramate (TopAMAX) 100 mg BID PO 01/17/20 09:00 01/18/20 08:35 Allergies Coded Allergies: Penicillins (Unverified Allergy, Unknown, 12/14/19) diethylene glycol (Unverified Allergy, Unknown, 12/14/19) ALSO CALLED CARBITOL divalproex sodium (Unverified Allergy, Unknown, Unverified reaction. It is SUSPECT, 12/14/19) fluphenazine (Unverified Allergy, Unknown, UNVERIFIED REACTION. IT IS SUSPECT, 12/14/19) lithium (Unverified Allergy, Unknown, UNVERIFIED REACTION. IT IS SUSPECT., 12/14/19) meperidine (Unverified Allergy, Unknown, 12/14/19) metoclopramide (Unverified Allergy, Unknown, 12/14/19) olanzapine (Unverified Allergy, Unknown, 12/14/19) PT CANNOT VERBALIZE ACTUAL REACTION TO MEDICATION, HAS TAKEN PREVIOUS DOSES ON UNIT WITHOUT INCIDENT ranitidine (Unverified Allergy, Unknown, 12/14/19) risperidone (Unverified Allergy, Unknown, Unverified reaction. It is SUSPECT., 12/14/19) sertraline (Unverified Allergy, Unknown, Unverified reaction. It is SUSPECT, 12/14/19) acetaminophen (Verified Adverse Reaction, Unknown, PT HX HEP B, HEP C, 12/11/19) haloperidol (Verified Adverse Reaction, Unknown, makes me go crazy, 12/11/19) uNVERIFIED REACTION. IT IS SUSPECT SANDI MORAN NP Jan 18, 2020 12:26
[2020-01-18 18:47] VITALS: BP 135/68
[2020-01-19] MEDS: clonazePAM 0.5 MG TAB PO SCH ×2 (08:21→20:20)
[2020-01-19] MEDS: TOPIRAMATE (TopAMAX) 100 MG TAB PO SCH ×2 (08:21→20:20)
[2020-01-19] MEDS: haloperidoL 5 MG TAB PO SCH ×2 (08:22→20:21)
[2020-01-19] MEDS: ACETAMINOPHEN TAB 650MG DOSE (2X325MG) PO PRN ×2 (08:22→18:24)
[2020-01-19] MEDS: SUCRALFATE SUSP 1GM/10ML UD PO SCH ×2 (08:22→20:19)
[2020-01-19 08:26] VITALS: BP 117/73
[2020-01-19] MEDS: LIDOCAINE 5% (LIDODERM) PATCH TD PRN (09:58)
[2020-01-19 18:00] VITALS: BP 137/65
[2020-01-20] MEDS: ACETAMINOPHEN TAB 650MG DOSE (2X325MG) PO PRN ×3 (01:04→15:44)
[2020-01-20 06:25] VITALS: BP 120/58
[2020-01-20] MEDS: haloperidoL 5 MG TAB PO SCH ×2 (08:37→21:00)
[2020-01-20] MEDS: SUCRALFATE SUSP 1GM/10ML UD PO SCH ×2 (08:37→20:24)
[2020-01-20] MEDS: clonazePAM 0.5 MG TAB PO SCH ×2 (08:37→20:25)
[2020-01-20] MEDS: TOPIRAMATE (TopAMAX) 100 MG TAB PO SCH ×2 (08:38→20:24)
[2020-01-20] MEDS: LIDOCAINE 5% (LIDODERM) PATCH TD PRN (09:17)
[2020-01-20] MEDS: MIRALAX *UNIT DOSE* 17GM PACKET PO PRN (14:02)
[2020-01-20 17:55] VITALS: BP 134/79
[2020-01-20] MEDS ORDERED: LORazepam 0.5 MG TAB PO ONE (20:45)
[2020-01-20] MEDS ORDERED: diphenhydrAMINE 25MG CAP PO ONE (20:45)
[2020-01-21 06:49] VITALS: BP 143/72
[2020-01-21] MEDS: haloperidoL 5 MG TAB PO SCH (08:31)
[2020-01-21] MEDS: SUCRALFATE SUSP 1GM/10ML UD PO SCH ×2 (08:34→20:16)
[2020-01-21] MEDS: clonazePAM 0.5 MG TAB PO SCH ×2 (08:35→20:17)
[2020-01-21] MEDS: TOPIRAMATE (TopAMAX) 100 MG TAB PO SCH ×2 (08:35→20:16)
[2020-01-21] MEDS: PILL CUTTER 1 EACH XX PRN (08:36)
[2020-01-21] MEDS: ACETAMINOPHEN TAB 650MG DOSE (2X325MG) PO PRN ×3 (08:36→23:06)
[2020-01-21] MEDS: LIDOCAINE 5% (LIDODERM) PATCH TD PRN (10:07)
[2020-01-21] MEDS: NICOTINE 14 MG/24 HR TRANSDERMAL TD SCH (10:07)
--- NOTE | 2020-01-21 13:25 | MHIPNPDOC ---
[facility] Progress Note Progress Note DATE OF SERVICE: 01/21/20 HISTORY: Patient is a 49 year old Single, Disabled, Undomiciled, Female. She was a 9.41 to [facility] for manic, bizarre and delusional behaviors in the community. VITAL SIGNS: See below. NEW TEST RESULTS: CURRENT MEDICATIONS: See below. MENTAL STATUS EXAMINATION: Patient is a 49-year old Single, Disabled, Undomiciled, female, who is admitted to [facility] for manic, bizarre and delusional behaviors in the community. She is currently admitted on a 2 PC legal status and was scheduled for Treatment Over Objection Hearing. Patient had been refusing all scheduled antipsychotic medications except PRN medications and reporting that only Clonazepam and Medical Marijuana would stabilize her. While she has been admitted, patient has continued to be hypomanic, bizarre, religiously preoccupied and preoccupied with rock stars. In today's interview patient present mildly depressed, flat affected. She reports that she can maintain herself neutrally in hopes that she can be discharged but staff reports continued manic symptoms. Speech: Is spontaneous, slow, normal tone and mildly low volume Language skills are good Thought processes including: linear and goal oriented, denies kevin and she is reality based Thought content: denies kevin, reporting mild depressive symptoms. Abstract reasoning, and computation: fair. Description of associations: none observed in the interview. Description of abnormal or psychotic thoughts: none observed in the interview Judgment: fair Insight: fair Orientation: alert and oriented Recent and remote memory: intact Attention span and concentration: good Language: expansive Fund of knowledge: average Mood: anxious, worried, mildly depressed. Affect: flat DIAGNOSES: Bipolar I Disorder, Recurrent, Manic Episode ASSESSMENT: In the interview, patient is calm and cooperative. Patient is reportedly still manic, although in the interview she does not have rapid speech, racing thoughts or hypomania. Moving forward with treatment over objection, although patient has taken medications but we may need to proceed with Haldol to reach maximum stability in order to be able to discharge her. MANAGEMENT PLAN: Continued medications, continued treatment over objection, patient is not stable for discharge. TIME SPENT: 20 minutes. Vital Signs Vital Signs Date Time Temp Pulse Resp B/P (MAP) Pulse Ox O2 Delivery O2 Flow Rate FiO2 01/21/20 06:49 97.8 103 20 143/72 (95) 100 Room Air Current Medications Current Medications Medications (Trade) Dose Ordered Sig/Jackelyn Route PRN Reason Start Time Stop Time Status Last Admin Dose Admin Acetaminophen (Tylenol Tab) 650 mg Q6H PRN PO HEADACHE OR DISCOMFORT 12/11/19 19:00 12/28/19 10:13 DC 12/28/19 04:47 Acetaminophen (Tylenol Tab) 650 mg Q6HP PRN PO PAIN / FEVER 01/05/20 18:45 01/21/20 08:36 Al Hydrox/Mg Hydrox/Simethicone (Mylanta) 30 ml Q4H PRN PO HEARTBURN/INDIGESTION 12/11/19 19:00 01/03/20 12:56 Albuterol Sulfate (Proventil, Ventolin Hfa) 2 puff Q6H PRN INH SHORTNESS OF BREATH 12/11/19 18:00 01/17/20 20:15 Aripiprazole (AbiLIFY) 5 mg QHS PO 12/11/19 21:00 12/11/19 18:00 DC Aripiprazole (AbiLIFY) 5 mg QHS PO 12/12/19 21:00 12/15/19 12:54 DC 12/13/19 21:21 Cariprazine (Vraylar) 3 mg QHS PO 12/15/19 21:00 12/25/19 09:11 DC 12/21/19 20:18 Cetylpyridinium Chloride (Cepacol) 1 karoline Q6H PRN PO SORE THROAT 12/12/19 12:00 01/14/20 09:06 DC 01/13/20 20:44 Clonazepam (KlonoPIN) 0.25 mg QAM PO 12/21/19 09:00 01/21/20 08:35 Clonazepam (KlonoPIN) 0.5 mg QAM PO 12/12/19 09:00 12/21/19 09:07 DC 12/21/19 08:21 Clonazepam (KlonoPIN) 0.75 mg QHS PO 12/25/19 21:00 01/20/20 20:25 Clonazepam (KlonoPIN) 1 mg QHS PO 12/11/19 21:00 12/25/19 09:11 DC 12/24/19 20:18 Cyclobenzaprine HCl (Flexeril) 5 mg BIDP PRN PO MUSCLE SPASMS 12/13/19 21:15 01/14/20 09:06 DC 01/13/20 22:35 Docusate Sodium (Colace) 100 mg BID PRN PO CONSTIPATION 12/11/19 19:00 01/14/20 09:06 DC 01/07/20 07:17 Haloperidol (Haldol) 5 mg BID PO 12/25/19 09:00 01/21/20 09:00 DC 01/14/20 23:16 Haloperidol (Haldol) 5 mg Q6HP PRN PO AGITATION 12/28/19 10:15 01/21/20 09:01 DC 01/12/20 15:21 Home Med (Med Rec Complete!) ASDIRECTED XX 12/11/19 18:45 12/11/19 18:40 DC Ibuprofen (Advil) 600 mg Q8HP PRN PO PAIN 12/28/19 10:15 01/04/20 10:46 DC 01/04/20 06:43 Lidocaine (Lidoderm Patch) 1 patch DAILY PRN TD LOWER BACK PAIN 12/12/19 09:00 01/21/20 10:07 Lorazepam (Ativan) 1 mg BIDP PRN PO ANXIETY/AGITATION 12/16/19 13:45 12/23/19 13:44 DC 12/23/19 04:49 Lorazepam (Ativan) 1 mg BIDP PRN PO ANXIETY/AGITATION 12/23/19 14:15 12/30/19 14:14 DC 12/29/19 21:02 Lorazepam (Ativan) 2 mg STAT STAT PO 12/25/19 11:20 12/25/19 11:22 DC 12/25/19 11:25 Magnesium Hydroxide (Milk Of Magnesia) 30 ml DAILYPRN PRN PO CONSTIPATION 12/11/19 19:00 01/02/20 13:18 Menthol/Methyl Salicylate (Bengay Cream) APPLY TO BILATERAL KNEES ... Q8H PRN TOP KNEE PAIN 12/11/19 19:00 01/14/20 09:06 DC 01/13/20 20:44 Miscellaneous (Unresolved Clarification Entry) SEE LABEL COMMENTS DAILY XX 01/06/20 09:00 01/06/20 09:42 DC Miscellaneous (Unresolved Clarification Entry) SEE LABEL COMMENTS DAILY XX 01/01/20 09:00 9/8/20 11:03 DC Nicotine (Nicoderm Cq 14mg) 1 patch DAILY TD 01/21/20 09:00 01/21/20 10:07 Nicotine (Nicoderm Cq 21mg) 1 patch DAILY TD 12/12/19 09:00 01/14/20 09:06 DC 01/13/20 08:19 Non-Formulary Medication ( See Comment Field Below ) REMOVE LIDODERM PATCH DAILY@21 XX 12/11/19 21:00 01/20/20 21:00 Olanzapine (ZyPREXA ZYDIS) 5 mg Q4HP PRN PO AGITATION 12/14/19 21:15 12/28/19 10:13 DC 12/26/19 08:27 Olanzapine (ZyPREXA ZYDIS) 5 mg QHS PO 12/11/19 21:00 12/12/19 11:49 DC 12/11/19 22:22 Ondansetron HCl (Zofran Odt) 4 mg Q8H PRN PO NAUSEA 12/11/19 19:00 01/14/20 09:06 DC 01/13/20 10:49 Paliperidone Palmitate (Invega Sustenna) 234 mg Q30D IM 12/22/19 09:00 12/25/19 09:11 DC 12/22/19 08:23 Phenyleph/Shark Oil/Min Oil/Petrol (Preparation H Ointment) BID PRN TOP hemorroids 01/02/20 10:30 01/14/20 09:06 DC 01/12/20 15:23 Polyethylene Glycol (Miralax) 1 pkt DAILY PRN PO CONSTIPATION 12/11/19 19:00 01/20/20 14:02 Risperidone (RisperDAL) 1 mg QHS PO 12/20/19 21:00 12/25/19 09:11 DC 12/20/19 20:07 Sucralfate (Carafate Suspension) 1 gm BID PO 12/15/19 21:00 01/21/20 08:34 Sucralfate (Carafate) 1 gm BID PO 12/11/19 21:00 12/15/19 12:59 DC 12/15/19 08:46 Topiramate (TopAMAX) 100 mg BID PO 01/17/20 09:00 01/21/20 08:35 Allergies Coded Allergies: Penicillins (Unverified Allergy, Unknown, 12/14/19) diethylene glycol (Unverified Allergy, Unknown, 12/14/19) ALSO CALLED CARBITOL divalproex sodium (Unverified Allergy, Unknown, Unverified reaction. It is SUSPECT, 12/14/19) fluphenazine (Unverified Allergy, Unknown, UNVERIFIED REACTION. IT IS SUSPECT, 12/14/19) lithium (Unverified Allergy, Unknown, UNVERIFIED REACTION. IT IS SUSPECT., 12/14/19) meperidine (Unverified Allergy, Unknown, 12/14/19) metoclopramide (Unverified Allergy, Unknown, 12/14/19) olanzapine (Unverified Allergy, Unknown, 12/14/19) PT CANNOT VERBALIZE ACTUAL REACTION TO MEDICATION, HAS TAKEN PREVIOUS DOSES ON UNIT WITHOUT INCIDENT ranitidine (Unverified Allergy, Unknown, 12/14/19) risperidone (Unverified Allergy, Unknown, Unverified reaction. It is SUSPECT., 12/14/19) sertraline (Unverified Allergy, Unknown, Unverified reaction. It is SUSPECT, 12/14/19) acetaminophen (Verified Adverse Reaction, Unknown, PT HX HEP B, HEP C, 12/11/19) haloperidol (Verified Adverse Reaction, Unknown, makes me go crazy, 12/11/19) uNVERIFIED REACTION. IT IS SUSPECT SANDI MORAN NP Jan 21, 2020 13:25
[2020-01-21 16:11] VITALS: BP 138/70
[2020-01-21] MEDS: MIRALAX *UNIT DOSE* 17GM PACKET PO PRN (17:47)
[2020-01-21 22:16] LABS: BASO % 0.3 % (0.0-1.0); EOS # 0.1 10^3/uL (0.0-0.5); EOS % 0.6 % (0.0-3.0); HEMATOCRIT 38.6 % (36.0-47.0); HEMOGLOBIN 12.8 g/dl (12.0-15.5); LYMPH # 1.3 10^3/uL (1.5-5.0); LYMPH % 11.1 % (24.0-44.0); MEAN CORPUSCULAR HEMOGLOBIN 29.9 pg (27.0-33.0); MEAN CORPUSCULAR HGB CONC 33.2 g/dl (32.0-36.5); MEAN CORPUSCULAR VOLUME 90.2 fl (80.0-96.0); MONO # 0.8 10^3/uL (0.0-0.8); MONO % 6.8 % (0.0-5.0); NEUTROPHILS # 9.3 10^3/uL (1.5-8.5); NEUTROPHILS % 80.9 % (36.0-66.0); PLATELET COUNT, AUTOMATED 290 10^3/uL (150-450); RED BLOOD COUNT 4.28 10^6/uL (4.00-5.40); WHITE BLOOD COUNT 11.5 10^3/uL (4.0-10.0)
[2020-01-22] MEDS: ACETAMINOPHEN TAB 650MG DOSE (2X325MG) PO PRN ×2 (05:47→19:01)
[2020-01-22 06:42] VITALS: BP 138/74
[2020-01-22] MEDS: clonazePAM 0.5 MG TAB PO SCH ×2 (08:35→20:40)
[2020-01-22] MEDS: PILL CUTTER 1 EACH XX PRN (08:35)
[2020-01-22] MEDS: NICOTINE 14 MG/24 HR TRANSDERMAL TD SCH (08:36)
[2020-01-22] MEDS: TOPIRAMATE (TopAMAX) 100 MG TAB PO SCH ×2 (08:36→20:40)
[2020-01-22] MEDS: SUCRALFATE SUSP 1GM/10ML UD PO SCH ×2 (08:37→20:39)
--- NOTE | 2020-01-22 11:22 | MHIPNPDOC ---
[facility] Progress Note Progress Note DATE OF SERVICE: 01/22/20 HISTORY: Patient is a 49 year old Single, Disabled, Undomiciled, Female. She was a 9.41 to [facility] for manic, bizarre and delusional behaviors in the community. VITAL SIGNS: See below. NEW TEST RESULTS: CURRENT MEDICATIONS: See below. MENTAL STATUS EXAMINATION: Patient is a 49-year old Single, Disabled, Undomiciled, female, who is admitted to [facility] for manic, bizarre and delusional behaviors in the community. She is currently admitted on a 2 PC legal status and was scheduled for Treatment Over Objection Hearing. Patient had been refusing all scheduled antipsychotic medications except PRN medications and reporting that only Clonazepam and Medical Marijuana would stabilize her. While she has been admitted, patient has continued to be hypomanic, bizarre, religiously preoccupied and preoccupied with rock stars. In today's interview patient present mildly depressed, flat affected. She reports that she can maintain herself neutrally in hopes that she can be discharged but staff reports improvement. Speech: Is spontaneous, fast rate, normal tone and volume Language skills are good Thought processes including: linear and goal oriented, denies kevin and she is reality based Thought content: denies kevin, reporting less depressive symptoms. She is dressed bizarrely and continues to sanaz Abstract reasoning, and computation: fair. Description of associations: none observed in the interview. Description of abnormal or psychotic thoughts: none observed in the interview Judgment: fair at times Insight: fair at times Orientation: alert and oriented Recent and remote memory: intact Attention span and concentration: fair Language: expansive Fund of knowledge: average Mood: hypomanic. Affect: flat DIAGNOSES: Bipolar I Disorder, Recurrent, Manic Episode ASSESSMENT: In the interview, patient is calm and cooperative. She has been more cooperative in the interview. But reported is still manic per staff. In the interview, patient is able to have a conversation without slurring her words, she is not observed with hypomania in the interview. But she is observed by this provider as mildly hypomanic on the unit. She has conditioner in her hair and she has braided it in a bizarre fashion. She shows some improvement. MANAGEMENT PLAN: Continued medications, continued treatment over objection. TIME SPENT: 20 minutes. Vital Signs Vital Signs Date Time Temp Pulse Resp B/P (MAP) Pulse Ox O2 Delivery O2 Flow Rate FiO2 01/22/20 06:42 96.3 92 18 138/74 (95) Room Air 01/21/20 06:49 100 Current Medications Current Medications Medications (Trade) Dose Ordered Sig/Jackelyn Route PRN Reason Start Time Stop Time Status Last Admin Dose Admin Acetaminophen (Tylenol Tab) 650 mg Q6H PRN PO HEADACHE OR DISCOMFORT 12/11/19 19:00 12/28/19 10:13 DC 12/28/19 04:47 Acetaminophen (Tylenol Tab) 650 mg Q6HP PRN PO PAIN / FEVER 01/05/20 18:45 01/22/20 05:47 Al Hydrox/Mg Hydrox/Simethicone (Mylanta) 30 ml Q4H PRN PO HEARTBURN/INDIGESTION 12/11/19 19:00 01/03/20 12:56 Albuterol Sulfate (Proventil, Ventolin Hfa) 2 puff Q6H PRN INH SHORTNESS OF BREATH 12/11/19 18:00 01/17/20 20:15 Aripiprazole (AbiLIFY) 5 mg QHS PO 12/11/19 21:00 12/11/19 18:00 DC Aripiprazole (AbiLIFY) 5 mg QHS PO 12/12/19 21:00 12/15/19 12:54 DC 12/13/19 21:21 Cariprazine (Vraylar) 3 mg QHS PO 12/15/19 21:00 12/25/19 09:11 DC 12/21/19 20:18 Cetylpyridinium Chloride (Cepacol) 1 karoline Q6H PRN PO SORE THROAT 12/12/19 12:00 01/14/20 09:06 DC 01/13/20 20:44 Clonazepam (KlonoPIN) 0.25 mg QAM PO 12/21/19 09:00 01/22/20 08:35 Clonazepam (KlonoPIN) 0.5 mg QAM PO 12/12/19 09:00 12/21/19 09:07 DC 12/21/19 08:21 Clonazepam (KlonoPIN) 0.75 mg QHS PO 12/25/19 21:00 01/21/20 20:17 Clonazepam (KlonoPIN) 1 mg QHS PO 12/11/19 21:00 12/25/19 09:11 DC 12/24/19 20:18 Cyclobenzaprine HCl (Flexeril) 5 mg BIDP PRN PO MUSCLE SPASMS 12/13/19 21:15 01/14/20 09:06 DC 01/13/20 22:35 Docusate Sodium (Colace) 100 mg BID PRN PO CONSTIPATION 12/11/19 19:00 01/14/20 09:06 DC 01/07/20 07:17 Haloperidol (Haldol) 5 mg BID PO 12/25/19 09:00 01/21/20 09:00 DC 01/14/20 23:16 Haloperidol (Haldol) 5 mg Q6HP PRN PO AGITATION 12/28/19 10:15 01/21/20 09:01 DC 01/12/20 15:21 Home Med (Med Rec Complete!) ASDIRECTED XX 12/11/19 18:45 12/11/19 18:40 DC Ibuprofen (Advil) 600 mg Q8HP PRN PO PAIN 12/28/19 10:15 01/04/20 10:46 DC 01/04/20 06:43 Lidocaine (Lidoderm Patch) 1 patch DAILY PRN TD LOWER BACK PAIN 12/12/19 09:00 01/21/20 10:07 Lorazepam (Ativan) 1 mg BIDP PRN PO ANXIETY/AGITATION 12/16/19 13:45 12/23/19 13:44 DC 12/23/19 04:49 Lorazepam (Ativan) 1 mg BIDP PRN PO ANXIETY/AGITATION 12/23/19 14:15 12/30/19 14:14 DC 12/29/19 21:02 Lorazepam (Ativan) 2 mg STAT STAT PO 12/25/19 11:20 12/25/19 11:22 DC 12/25/19 11:25 Magnesium Hydroxide (Milk Of Magnesia) 30 ml DAILYPRN PRN PO CONSTIPATION 12/11/19 19:00 01/02/20 13:18 Menthol/Methyl Salicylate (Bengay Cream) APPLY TO BILATERAL KNEES ... Q8H PRN TOP KNEE PAIN 12/11/19 19:00 01/14/20 09:06 DC 01/13/20 20:44 Miscellaneous (Unresolved Clarification Entry) SEE LABEL COMMENTS DAILY XX 01/06/20 09:00 01/06/20 09:42 DC Miscellaneous (Unresolved Clarification Entry) SEE LABEL COMMENTS DAILY XX 01/01/20 09:00 01/01/20 11:03 DC Nicotine (Nicoderm Cq 14mg) 1 patch DAILY TD 01/21/20 09:00 01/22/20 08:36 Nicotine (Nicoderm Cq 21mg) 1 patch DAILY TD 12/12/19 09:00 01/14/20 09:06 DC 01/13/20 08:19 Non-Formulary Medication ( See Comment Field Below ) REMOVE LIDODERM PATCH DAILY@21 XX 12/11/19 21:00 01/21/20 20:55 Olanzapine (ZyPREXA ZYDIS) 5 mg Q4HP PRN PO AGITATION 12/14/19 21:15 12/28/19 10:13 DC 12/26/19 08:27 Olanzapine (ZyPREXA ZYDIS) 5 mg QHS PO 12/11/19 21:00 12/12/19 11:49 DC 12/11/19 22:22 Ondansetron HCl (Zofran Odt) 4 mg Q8H PRN PO NAUSEA 12/11/19 19:00 01/14/20 09:06 DC 01/13/20 10:49 Paliperidone Palmitate (Invega Sustenna) 234 mg Q30D IM 12/22/19 09:00 12/25/19 09:11 DC 12/22/19 08:23 Phenyleph/Shark Oil/Min Oil/Petrol (Preparation H Ointment) BID PRN TOP hemorroids 01/02/20 10:30 01/14/20 09:06 DC 01/12/20 15:23 Polyethylene Glycol (Miralax) 1 pkt DAILY PRN PO CONSTIPATION 12/11/19 19:00 01/21/20 17:47 Risperidone (RisperDAL) 1 mg QHS PO 12/20/19 21:00 12/25/19 09:11 DC 12/20/19 20:07 Sucralfate (Carafate Suspension) 1 gm BID PO 12/15/19 21:00 01/22/20 08:37 Sucralfate (Carafate) 1 gm BID PO 12/11/19 21:00 12/15/19 12:59 DC 12/15/19 08:46 Topiramate (TopAMAX) 100 mg BID PO 01/17/20 09:00 01/22/20 08:36 Allergies Coded Allergies: Penicillins (Unverified Allergy, Unknown, 12/14/19) diethylene glycol (Unverified Allergy, Unknown, 12/14/19) ALSO CALLED CARBITOL divalproex sodium (Unverified Allergy, Unknown, Unverified reaction. It is SUSPECT, 12/14/19) fluphenazine (Unverified Allergy, Unknown, UNVERIFIED REACTION. IT IS SUSPECT, 12/14/19) lithium (Unverified Allergy, Unknown, UNVERIFIED REACTION. IT IS SUSPECT., 12/14/19) meperidine (Unverified Allergy, Unknown, 12/14/19) metoclopramide (Unverified Allergy, Unknown, 12/14/19) olanzapine (Unverified Allergy, Unknown, 12/14/19) PT CANNOT VERBALIZE ACTUAL REACTION TO MEDICATION, HAS TAKEN PREVIOUS DOSES ON UNIT WITHOUT INCIDENT ranitidine (Unverified Allergy, Unknown, 12/14/19) risperidone (Unverified Allergy, Unknown, Unverified reaction. It is SUSPECT., 12/14/19) sertraline (Unverified Allergy, Unknown, Unverified reaction. It is SUSPECT, 12/14/19) acetaminophen (Verified Adverse Reaction, Unknown, PT HX HEP B, HEP C, 12/11/19) haloperidol (Verified Adverse Reaction, Unknown, makes me go crazy, 12/11/19) uNVERIFIED REACTION. IT IS SUSPECT SANDI MORAN RELATIONSHIP MANAGER Jan 22, 2020 11:22
[2020-01-22] MEDS: MAALOX 30 ML SUSP *UDC PO PRN (14:13)
[2020-01-22 16:17] VITALS: BP 132/80
[2020-01-22] MEDS: MIRALAX *UNIT DOSE* 17GM PACKET PO PRN (19:01)
[2020-01-22] MEDS: haloperidoL 5 MG TAB PO SCH (20:41)
[2020-01-23] MEDS: haloperidoL 5 MG TAB PO SCH ×2 (09:00→20:26)
[2020-01-23] MEDS: SUCRALFATE SUSP 1GM/10ML UD PO SCH ×2 (09:24→20:25)
[2020-01-23] MEDS: TOPIRAMATE (TopAMAX) 100 MG TAB PO SCH ×2 (09:24→20:25)
[2020-01-23] MEDS: NICOTINE 14 MG/24 HR TRANSDERMAL TD SCH (09:24)
[2020-01-23] MEDS: PILL CUTTER 1 EACH XX PRN (09:29)
[2020-01-23] MEDS: clonazePAM 0.5 MG TAB PO SCH ×2 (09:29→20:25)
--- NOTE | 2020-01-23 11:47 | MHIPNPDOC ---
[facility] Progress Note Progress Note DATE OF SERVICE: 01/23/20 HISTORY: Patient is a 49 year old Single, Disabled, Undomiciled, Female. She was a 9.41 to [facility] for manic, bizarre and delusional behaviors in the community. VITAL SIGNS: See below. NEW TEST RESULTS: CURRENT MEDICATIONS: See below. MENTAL STATUS EXAMINATION: Patient is a 49-year old Single, Disabled, Undomiciled, female, who is admitted to [facility] for manic, bizarre and delusional behaviors in the community. She is currently admitted on a 2 PC legal status and was scheduled for Treatment Over Objection Hearing. Patient had been refusing all scheduled antipsychotic medications except PRN medications and reporting that only Clonazepam and Medical Marijuana would stabilize her. While she has been admitted, patient has continued to be hypomanic, bizarre, religiously preoccupied and preoccupied with rock stars. In today's interview patient present mildly depressed, flat affected. She was agreeable to Invega Sustenna 234 mg which she had on 12/22/19 and 01/17/20. She had complained about migraines and was requesting Topamax and agreed to Topamax 200 mg which helped with her complaints of headaches and can be used as a mood stabilizer. Speech: Is conversant, normal rate, tone, and volume Language skills are good Thought processes including: in todays interview she was linear and goal oriented Thought content: denies kevin, reporting less depressive symptoms. She is dressed bizarrely and continues to sanaz, patients room is decorated in a disarray of pages of magazines that she has posted to the [facility]. Abstract reasoning, and computation: fair. Description of associations: she is mildly religiously preoccupies Description of abnormal or psychotic thoughts: denies and not observed with any abnormal thoughts Judgment: fair at times Insight: fair at times Orientation: alert and oriented Recent and remote memory: intact Attention span and concentration: fair Language: expansive Fund of knowledge: average Mood: hypomanic. Affect: flat DIAGNOSES: Bipolar I Disorder, Recurrent, Manic Episode ASSESSMENT: In the interview, patient is calm and cooperative. She was dressed bizarrely today in the hallways, she wrapped a t-shirt around her legs fashioned into a skirt, her hair is done bizarrely. Although in the interview, she was dressed appropriately. She had colored her hair yesterday, and has removed the red color from her hair today. She was calm and cooperative in the interview. In the interview, patient is conversant, fluid and has normal rate, tone and volume in her speech. According to staff, patient continues to have episodes of manic behaviors and rapid speech and flight of ideas. In groups she is often d isruptive with manic behaviors (got up during group and started cleaning off tables). Patient does show more linear thinking, but does have moments throughout the day that her behaviors are hypomanic. MANAGEMENT PLAN: Continue current medication regimen. Patient has treatment over objection today. She is aware of this. Patient is not stable at this time for discharge but has made some improvements. TIME SPENT: 20 minutes. Vital Signs Vital Signs Date Time Temp Pulse Resp B/P (MAP) Pulse Ox O2 Delivery O2 Flow Rate FiO2 01/23/20 08:29 Room Air 01/22/20 16:17 98.9 90 18 132/80 (97) 01/21/20 06:49 100 Current Medications Current Medications Medications (Trade) Dose Ordered Sig/Jackelyn Route PRN Reason Start Time Stop Time Status Last Admin Dose Admin Acetaminophen (Tylenol Tab) 650 mg Q6H PRN PO HEADACHE OR DISCOMFORT 12/11/19 19:00 12/28/19 10:13 DC 12/28/19 04:47 Acetaminophen (Tylenol Tab) 650 mg Q6HP PRN PO PAIN / FEVER 01/05/20 18:45 01/22/20 19:01 Al Hydrox/Mg Hydrox/Simethicone (Mylanta) 30 ml Q4H PRN PO HEARTBURN/INDIGESTION 12/11/19 19:00 01/22/20 14:13 Albuterol Sulfate (Proventil, Ventolin Hfa) 2 puff Q6H PRN INH SHORTNESS OF BREATH 12/11/19 18:00 01/17/20 20:15 Aripiprazole (AbiLIFY) 5 mg QHS PO 12/11/19 21:00 12/11/19 18:00 DC Aripiprazole (AbiLIFY) 5 mg QHS PO 12/12/19 21:00 12/15/19 12:54 DC 12/13/19 21:21 Cariprazine (Vraylar) 3 mg QHS PO 12/15/19 21:00 12/25/19 09:11 DC 12/21/19 20:18 Cetylpyridinium Chloride (Cepacol) 1 karoline Q6H PRN PO SORE THROAT 12/12/19 12:00 01/14/20 09:06 DC 01/13/20 20:44 Clonazepam (KlonoPIN) 0.25 mg QAM PO 12/21/19 09:00 01/23/20 09:29 Clonazepam (KlonoPIN) 0.5 mg QAM PO 12/12/19 09:00 12/21/19 09:07 DC 12/21/19 08:21 Clonazepam (KlonoPIN) 0.75 mg QHS PO 12/25/19 21:00 01/22/20 20:40 Clonazepam (KlonoPIN) 1 mg QHS PO 12/11/19 21:00 12/25/19 09:11 DC 12/24/19 20:18 Cyclobenzaprine HCl (Flexeril) 5 mg BIDP PRN PO MUSCLE SPASMS 12/13/19 21:15 01/14/20 09:06 DC 01/13/20 22:35 Docusate Sodium (Colace) 100 mg BID PRN PO CONSTIPATION 12/11/19 19:00 01/14/20 09:06 DC 01/07/20 07:17 Haloperidol (Haldol) 5 mg BID PO 12/25/19 09:00 01/21/20 09:00 DC 01/14/20 23:16 Haloperidol (Haldol) 5 mg BID PO 01/22/20 21:00 Haloperidol (Haldol) 5 mg Q6HP PRN PO AGITATION 12/28/19 10:15 01/21/20 09:01 DC 01/12/20 15:21 Home Med (Med Rec Complete!) ASDIRECTED XX 12/11/19 18:45 12/11/19 18:40 DC Ibuprofen (Advil) 600 mg Q8HP PRN PO PAIN 12/28/19 10:15 01/04/20 10:46 DC 01/04/20 06:43 Lidocaine (Lidoderm Patch) 1 patch DAILY PRN TD LOWER BACK PAIN 12/12/19 09:00 01/21/20 10:07 Lorazepam (Ativan) 1 mg BIDP PRN PO ANXIETY/AGITATION 12/16/19 13:45 12/23/19 13:44 DC 12/23/19 04:49 Lorazepam (Ativan) 1 mg BIDP PRN PO ANXIETY/AGITATION 12/23/19 14:15 12/30/19 14:14 DC 12/29/19 21:02 Lorazepam (Ativan) 2 mg STAT STAT PO 12/25/19 11:20 12/25/19 11:22 DC 12/25/19 11:25 Magnesium Hydroxide (Milk Of Magnesia) 30 ml DAILYPRN PRN PO CONSTIPATION 12/11/19 19:00 01/02/20 13:18 Menthol/Methyl Salicylate (Bengay Cream) APPLY TO BILATERAL KNEES ... Q8H PRN TOP KNEE PAIN 12/11/19 19:00 01/14/20 09:06 DC 01/13/20 20:44 Miscellaneous (Unresolved Clarification Entry) SEE LABEL COMMENTS DAILY XX 01/06/20 09:00 01/06/20 09:42 DC Miscellaneous (Unresolved Clarification Entry) SEE LABEL COMMENTS DAILY XX 01/01/20 09:00 01/01/20 11:03 DC Nicotine (Nicoderm Cq 14mg) 1 patch DAILY TD 01/21/20 09:00 01/23/20 09:24 Nicotine (Nicoderm Cq 21mg) 1 patch DAILY TD 12/12/19 09:00 01/14/20 09:06 DC 01/13/20 08:19 Non-Formulary Medication ( See Comment Field Below ) REMOVE LIDODERM PATCH DAILY@21 XX 12/11/19 21:00 01/22/20 20:42 Olanzapine (ZyPREXA ZYDIS) 5 mg Q4HP PRN PO AGITATION 12/14/19 21:15 12/28/19 10:13 DC 12/26/19 08:27 Olanzapine (ZyPREXA ZYDIS) 5 mg QHS PO 12/11/19 21:00 12/12/19 11:49 DC 12/11/19 22:22 Ondansetron HCl (Zofran Odt) 4 mg Q8H PRN PO NAUSEA 12/11/19 19:00 01/14/20 09:06 DC 01/13/20 10:49 Paliperidone Palmitate (Invega Sustenna) 234 mg Q30D IM 12/22/19 09:00 12/25/19 09:11 DC 12/22/19 08:23 Phenyleph/Shark Oil/Min Oil/Petrol (Preparation H Ointment) BID PRN TOP hemorroids 01/02/20 10:30 01/14/20 09:06 DC 01/12/20 15:23 Polyethylene Glycol (Miralax) 1 pkt DAILY PRN PO CONSTIPATION 12/11/19 19:00 01/22/20 19:01 Risperidone (RisperDAL) 1 mg QHS PO 12/20/19 21:00 12/25/19 09:11 DC 12/20/19 20:07 Sucralfate (Carafate Suspension) 1 gm BID PO 12/15/19 21:00 01/23/20 09:24 Sucralfate (Carafate) 1 gm BID PO 12/11/19 21:00 12/15/19 12:59 DC 12/15/19 08:46 Topiramate (TopAMAX) 100 mg BID PO 01/17/20 09:00 01/23/20 09:24 Allergies Coded Allergies: Penicillins (Unverified Allergy, Unknown, 12/14/19) diethylene glycol (Unverified Allergy, Unknown, 12/14/19) ALSO CALLED CARBITOL divalproex sodium (Unverified Allergy, Unknown, Unverified reaction. It is SUSPECT, 12/14/19) fluphenazine (Unverified Allergy, Unknown, UNVERIFIED REACTION. IT IS SUSPECT, 12/14/19) lithium (Unverified Allergy, Unknown, UNVERIFIED REACTION. IT IS SUSPECT., 12/14/19) meperidine (Unverified Allergy, Unknown, 12/14/19) metoclopramide (Unverified Allergy, Unknown, 12/14/19) olanzapine (Unverified Allergy, Unknown, 12/14/19) PT CANNOT VERBALIZE ACTUAL REACTION TO MEDICATION, HAS TAKEN PREVIOUS DOSES ON UNIT WITHOUT INCIDENT ranitidine (Unverified Allergy, Unknown, 12/14/19) risperidone (Unverified Allergy, Unknown, Unverified reaction. It is SUSPE CT., 12/14/19) sertraline (Unverified Allergy, Unknown, Unverified reaction. It is SUSPECT, 12/14/19) acetaminophen (Verified Adverse Reaction, Unknown, PT HX HEP B, HEP C, 12/11/19) haloperidol (Verified Adverse Reaction, Unknown, makes me go crazy, 12/11/19) uNVERIFIED REACTION. IT IS SUSPECT SANDI MORAN NP Jan 23, 2020 11:47
[2020-01-23] MEDS: ACETAMINOPHEN TAB 650MG DOSE (2X325MG) PO PRN ×2 (12:47→22:20)
[2020-01-23 16:11] VITALS: BP 135/81
[2020-01-23] MEDS ORDERED: LORazepam 1 MG TAB PO STA (16:36)
[2020-01-24] MEDS: ACETAMINOPHEN TAB 650MG DOSE (2X325MG) PO PRN ×2 (06:40→15:11)
[2020-01-24] MEDS: haloperidoL 5 MG TAB PO SCH ×2 (09:00→20:09)
[2020-01-24] MEDS: SUCRALFATE SUSP 1GM/10ML UD PO SCH ×2 (09:23→20:07)
[2020-01-24] MEDS: PILL CUTTER 1 EACH XX PRN (09:23)
[2020-01-24] MEDS: TOPIRAMATE (TopAMAX) 100 MG TAB PO SCH ×2 (09:23→20:08)
[2020-01-24] MEDS: clonazePAM 0.5 MG TAB PO SCH ×2 (09:30→20:08)
[2020-01-24] MEDS: NICOTINE 14 MG/24 HR TRANSDERMAL TD SCH (09:31)
[2020-01-24] MEDS: LIDOCAINE 5% (LIDODERM) PATCH TD PRN (09:39)
[2020-01-24] MEDS: LORazepam 1 MG TAB PO PRN (15:11)
--- NOTE | 2020-01-24 16:15 | MHIPNPDOC ---
[facility] Progress Note Progress Note DATE OF SERVICE: 01/24/20 HISTORY: .. VITAL SIGNS: See below. NEW TEST RESULTS: see results CURRENT MEDICATIONS: See below. MENTAL STATUS EXAMINATION: Patient is a 49-year old Single, Disabled, Undomiciled, female, who is admitted to [facility] for manic, bizarre and delusional behaviors in the community. She is currently admitted on a 2 PC legal status and was scheduled for Treatment Over Objection Hearing. Patient had been refusing all scheduled antipsychotic medications except PRN medications and reporting that only Clonazepam and Medica l Marijuana would stabilize her. While she has been admitted, patient has continued to be hypomanic, bizarre, religiously preoccupied and preoccupied with rock stars. Speech: Is Fast,flight of ideas, tangential. Language skills are good Thought processes including: in todays interview she scattered and disorganized Thought content: denies kevin, reporting less depressive symptoms. She is dressed bizarrely and continues to sanaz, patients room is decorated in a disarray of pages of magazines that she has posted to the [facility]. Abstract reasoning, and computation: fair. Description of associations: she is mildly religiously preoccupied Description of abnormal or psychotic thoughts: denies any abnormal thoughts, but is taking about Elvin Goldberg and Nicolasa Lockett Judgment: poor Insight: poor Orientation: alert and oriented Recent and remote memory: intact Attention span and concentration: fair Language: expansive Fund of knowledge: average Mood: hypomanic. Affect: flat DIAGNOSES: Bipolar I Disorder, Recurrent, Manic Episode DIAGNOSES: ASSESSMENT States that she is willing to take Risperdal and Paliperidone. Haldol gave her Hiatal Hernia, Hemorrhoids and Stomach. Wearing her Dad's shirt and is preoccupied with animals, rock stars and having oriental orthodox preoccupation. "I will take Risperdal because I was writing with Elvin Goldberg, who was in the [facility], he was with Nicolasa Lockett." Wants to switch rooms complains of no hot water, states she cannot work around the unit shower hours. " I like this shirt, it came from [place], I want to go to [place], but have to go clean Rashad is there, I am not having sex, unles sI am , not younger, they need to propose. I want to be surprised, Rashad never proposed, this is mom's ring, MANAGEMENT PLAN: Continue medications, patient to be cross examined tomorrow in video court hearing TIME SPENT: 20 minutes. Vital Signs Vital Signs Date Time Temp Pulse Resp B/P (MAP) Pulse Ox O2 Delivery O2 Flow Rate FiO2 01/23/20 16:11 96.9 99 18 135/81 (99) 01/23/20 08:29 Room Air 01/21/20 06:49 100 Current Medications Current Medications Medications (Trade) Dose Ordered Sig/Jackelyn Route PRN Reason Start Time Stop Time Status Last Admin Dose Admin Acetaminophen (Tylenol Tab) 650 mg Q6H PRN PO HEADACHE OR DISCOMFORT 12/11/19 19:00 12/28/19 10:13 DC 12/28/19 04:47 Acetaminophen (Tylenol Tab) 650 mg Q6HP PRN PO PAIN / FEVER 01/05/20 18:45 01/24/20 06:40 Al Hydrox/Mg Hydrox/Simethicone (Mylanta) 30 ml Q4H PRN PO HEARTBURN/INDIGESTION 12/11/19 19:00 01/22/20 14:13 Albuterol Sulfate (Proventil, Ventolin Hfa) 2 puff Q6H PRN INH SHORTNESS OF BREATH 12/11/19 18:00 01/17/20 20:15 Aripiprazole (AbiLIFY) 5 mg QHS PO 12/11/19 21:00 12/11/19 18:00 DC Aripiprazole (AbiLIFY) 5 mg QHS PO 12/12/19 21:00 12/15/19 12:54 DC 12/13/19 21:21 Cariprazine (Vraylar) 3 mg QHS PO 12/15/19 21:00 12/25/19 09:11 DC 12/21/19 20:18 Cetylpyridinium Chloride (Cepacol) 1 karoline Q6H PRN PO SORE THROAT 12/12/19 12:00 01/14/20 09:06 DC 01/13/20 20:44 Clonazepam (KlonoPIN) 0.25 mg QAM PO 12/21/19 09:00 01/23/20 09:29 Clonazepam (KlonoPIN) 0.5 mg QAM PO 12/12/19 09:00 12/21/19 09:07 DC 12/21/19 08:21 Clonazepam (KlonoPIN) 0.75 mg QHS PO 12/25/19 21:00 01/23/20 20:25 Clonazepam (KlonoPIN) 1 mg QHS PO 12/11/19 21:00 12/25/19 09:11 DC 12/24/19 20:18 Cyclobenzaprine HCl (Flexeril) 5 mg BIDP PRN PO MUSCLE SPASMS 12/13/19 21:15 01/14/20 09:06 DC 01/13/20 22:35 Docusate Sodium (Colace) 100 mg BID PRN PO CONSTIPATION 12/11/19 19:00 01/14/20 09:06 DC 01/07/20 07:17 Haloperidol (Haldol) 5 mg BID PO 12/25/19 09:00 01/21/20 09:00 DC 01/14/20 23:16 Haloperidol (Haldol) 5 mg BID PO 01/22/20 21:00 Haloperidol (Haldol) 5 mg Q6HP PRN PO AGITATION 12/28/19 10:15 01/21/20 09:01 DC 01/12/20 15:21 Home Med (Med Rec Complete!) ASDIRECTED XX 12/11/19 18:45 12/11/19 18:40 DC Ibuprofen (Advil) 600 mg Q8HP PRN PO PAIN 12/28/19 10:15 01/04/20 10:46 DC 01/04/20 06:43 Lidocaine (Lidoderm Patch) 1 patch DAILY PRN TD LOWER BACK PAIN 12/12/19 09:00 01/21/20 10:07 Lorazepam (Ativan) 1 mg BID PRN PO ANXIETY/AGITATION 01/23/20 16:45 Lorazepam (Ativan) 1 mg BIDP PRN PO ANXIETY/AGITATION 12/16/19 13:45 12/23/19 13:44 DC 12/23/19 04:49 Lorazepam (Ativan) 1 mg BIDP PRN PO ANXIETY/AGITATION 12/23/19 14:15 12/30/19 14:14 DC 12/29/19 21:02 Lorazepam (Ativan) 1 mg STAT STAT PO 01/23/20 16:36 01/23/20 16:37 DC 01/23/20 17:06 Lorazepam (Ativan) 2 mg STAT STAT PO 12/25/19 11:20 12/25/19 11:22 DC 12/25/19 11:25 Magnesium Hydroxide (Milk Of Magnesia) 30 ml DAILYPRN PRN PO CONSTIPATION 12/11/19 19:00 01/02/20 13:18 Menthol/Methyl Salicylate (Bengay Cream) APPLY TO BILATERAL KNEES ... Q8H PRN TOP KNEE PAIN 12/11/19 19:00 01/14/20 09:06 DC 01/13/20 20:44 Miscellaneous (Unresolved Clarification Entry) SEE LABEL COMMENTS DAILY XX 01/06/20 09:00 01/06/20 09:42 DC Miscellaneous (Unresolved Clarification Entry) SEE LABEL COMMENTS DAILY XX 01/01/20 09:00 01/01/20 11:03 DC Nicotine (Nicoderm Cq 14mg) 1 patch DAILY TD 01/21/20 09:00 01/23/20 09:24 Nicotine (Nicoderm Cq 21mg) 1 patch DAILY TD 12/12/19 09:00 01/14/20 09:06 DC 01/13/20 08:19 Non-Formulary Medication ( See Comment Field Below ) REMOVE LIDODERM PATCH DAILY@21 XX 12/11/19 21:00 01/23/20 20:26 Olanzapine (ZyPREXA ZYDIS) 5 mg Q4HP PRN PO AGITATION 12/14/19 21:15 12/28/19 10:13 DC 12/26/19 08:27 Olanzapine (ZyPREXA ZYDIS) 5 mg QHS PO 12/11/19 21:00 12/12/19 11:49 DC 12/11/19 22:22 Ondansetron HCl (Zofran Odt) 4 mg Q8H PRN PO NAUSEA 12/11/19 19:00 01/14/20 09:06 DC 01/13/20 10:49 Paliperidone Palmitate (Invega Sustenna) 234 mg Q30D IM 12/22/19 09:00 12/25/19 09:11 DC 12/22/19 08:23 Phenyleph/Shark Oil/Min Oil/Petrol (Preparation H Ointment) BID PRN TOP hemorroids 01/02/20 10:30 01/14/20 09:06 DC 01/12/20 15:23 Polyethylene Glycol (Miralax) 1 pkt DAILY PRN PO CONSTIPATION 12/11/19 19:00 01/22/20 19:01 Risperidone (RisperDAL) 1 mg QHS PO 12/20/19 21:00 12/25/19 09:11 DC 12/20/19 20:07 Sucralfate (Carafate Suspension) 1 gm BID PO 12/15/19 21:00 01/23/20 20:25 Sucralfate (Carafate) 1 gm BID PO 12/11/19 21:00 12/15/19 12:59 DC 12/15/19 08:46 Topiramate (TopAMAX) 100 mg BID PO 01/17/20 09:00 01/23/20 20:25 Allergies Coded Allergies: Penicillins (Unverified Allergy, Unknown, 12/14/19) diethylene glycol (Unverified Allergy, Unknown, 12/14/19) ALSO CALLED CARBITOL divalproex sodium (Unverified Allergy, Unknown, Unverified reaction. It is SUSPECT, 12/14/19) fluphenazine (Unverified Allergy, Unknown, UNVERIFIED REACTION. IT IS SUSPECT, 12/14/19) lithium (Unverified Allergy, Unknown, UNVERIFIED REACTION. IT IS SUSPECT., 12/14/19) meperidine (Unverified Allergy, Unknown, 12/14/19) metoclopramide (Unverified Allergy, Unknown, 12/14/19) olanzapine (Unverified Allergy, Unknown, 12/14/19) PT CANNOT VERBALIZE ACTUAL REACTION TO MEDICATION, HAS TAKEN PREVIOUS DOSES ON UNIT WITHOUT INCIDENT ranitidine (Unverified Allergy, Unknown, 12/14/19) risperidone (Unverified Allergy, Unknown, Unverified reaction. It is SUSPECT., 12/14/19) sertraline (Unverified Allergy, Unknown, Unverified reaction. It is SUSPECT, 12/14/19) acetaminophen (Verified Adverse Reaction, Unknown, PT HX HEP B, HEP C, 12/11/19) haloperidol (Verified Adverse Reaction, Unknown, makes me go crazy, 12/11/19) uNVERIFIED REACTION. IT IS SUSPECT SANDI MORAN HOTEL ASSISTANT GENERAL MANAGER Jan 24, 2020 09:18
[2020-01-24] MEDS: MIRALAX *UNIT DOSE* 17GM PACKET PO PRN (22:03)
[2020-01-25] MEDS: ACETAMINOPHEN TAB 650MG DOSE (2X325MG) PO PRN ×2 (00:32→14:55)
[2020-01-25] MEDS: LORazepam 1 MG TAB PO PRN ×2 (01:55→19:32)
[2020-01-25] MEDS: PILL CUTTER 1 EACH XX PRN ×2 (08:03→20:49)
[2020-01-25] MEDS: clonazePAM 0.5 MG TAB PO SCH ×2 (08:03→20:49)
[2020-01-25] MEDS: haloperidoL 5 MG TAB PO SCH ×2 (08:05→20:47)
[2020-01-25] MEDS: NICOTINE 14 MG/24 HR TRANSDERMAL TD SCH (08:05)
[2020-01-25] MEDS: SUCRALFATE SUSP 1GM/10ML UD PO SCH ×2 (08:05→20:49)
[2020-01-25] MEDS: TOPIRAMATE (TopAMAX) 100 MG TAB PO SCH ×2 (08:05→20:49)
[2020-01-25] MEDS ORDERED: LORazepam 1 MG TAB PO ONE (10:00)
--- NOTE | 2020-01-25 13:12 | MHIPNPDOC ---
[facility] Progress Note Progress Note DATE OF SERVICE: 01/25/20 HISTORY: Patient is a 49 year old Single, Disabled, Undomiciled, Female. She was a 9.41 to [facility] for manic, bizarre and delusional behaviors in the community. VITAL SIGNS: See below. NEW TEST RESULTS: see results CURRENT MEDICATIONS: See below. MENTAL STATUS EXAMINATION: Patient is a 49-year old Single, Disabled, Undomiciled, female, who is admitted to [facility] for manic, bizarre and delusional behaviors in the community. She is currently admitted on a 2 PC legal status and was scheduled for Treatment Over Objection Hearing today. While she has been admitted, patient has continued to be hypomanic, bizarre, religiously preoccupied and preoccupied with rock stars. Speech: Is Fast,flight of ideas, tangential. Language skills are good Thought processes including: in todays interview she is at times disorganized but mostly with flight of ideas. Thought content: denies kevin, reporting depressive symptoms. She is dressed bizarrely and continues to sanaz, patients room is decorated in a disarray of pages of magazines that she has posted to the [facility]. Abstract reasoning, and computation: fair. Description of associations: she is mildly religiously preoccupied Description of abnormal or psychotic thoughts: denies any abnormal thoughts, but is taking about Elvin Goldberg and [place] and Mario Marquez Judgment: poor Insight: poor Orientation: alert and oriented Recent and remote memory: intact Attention span and concentration: fair Language: expansive Fund of knowledge: average Mood: hypomanic. Affect: flat DIAGNOSES: Bipolar I Disorder, Recurrent, Manic Episode ASSESSMENT States that she is willing to take Risperdal and it was ordered to start tonight. Patient is dressed bizarrely. She had taken pastels from the art room and mixed it with Vaseline to color her hair a bright fuschsia. She states that she needed to color her hair, she no longer wants blonde and is preparing herself for her discharge. She is extremely tangential with flight of ideas. "Dr. Park talked about Mario Marquez, but I never talked to her about him. He lived in [place], and he was murdered. They shot him up with heroin and he couldn't have killed himself. [place] did it, I know. And she can't ever go back there because she paid off the commodity broker. I can't go there she will kill me but I would never tell Hailey how her father . My father's shirt, is this shirt, he was in [place] and in [place], [place] and I took Marine Biology in [place]" It is difficult to follow patient's thought process. MANAGEMENT PLAN: Continue medications, patient to be cross examined tomorrow in video court hearing TIME SPENT: 20 minutes. Vital Signs Vital Signs Date Time Temp Pulse Resp B/P (MAP) Pulse Ox O2 Delivery O2 Flow Rate FiO2 01/24/20 09:11 Room Air 01/23/20 16:11 96.9 99 18 135/81 (99) 01/21/20 06:49 100 Current Medications Current Medications Medications (Trade) Dose Ordered Sig/Jackelny Route PRN Reason Start Time Stop Time Status Last Admin Dose Admin Acetaminophen (Tylenol Tab) 650 mg Q6H PRN PO HEADACHE OR DISCOMFORT 12/11/19 19:00 12/28/19 10:13 DC 12/28/19 04:47 Acetaminophen (Tylenol Tab) 650 mg Q6HP PRN PO PAIN / FEVER 01/05/20 18:45 01/25/20 00:32 Al Hydrox/Mg Hydrox/Simethicone (Mylanta) 30 ml Q4H PRN PO HEARTBURN/INDIGESTION 12/11/19 19:00 01/22/20 14:13 Albuterol Sulfate (Proventil, Ventolin Hfa) 2 puff Q6H PRN INH SHORTNESS OF BREATH 12/11/19 18:00 01/17/20 20:15 Aripiprazole (AbiLIFY) 5 mg QHS PO 12/11/19 21:00 12/11/19 18:00 DC Aripiprazole (AbiLIFY) 5 mg QHS PO 12/12/19 21:00 12/15/19 12:54 DC 12/13/19 21:21 Cariprazine (Vraylar) 3 mg QHS PO 12/15/19 21:00 12/25/19 09:11 DC 12/21/19 20:18 Cetylpyridinium Chloride (Cepacol) 1 karoline Q6H PRN PO SORE THROAT 12/12/19 12:00 01/14/20 09:06 DC 01/13/20 20:44 Clonazepam (KlonoPIN) 0.25 mg QAM PO 12/21/19 09:00 01/25/20 08:03 Clonazepam (KlonoPIN) 0.5 mg QAM PO 12/12/19 09:00 12/21/19 09:07 DC 12/21/19 08:21 Clonazepam (KlonoPIN) 0.75 mg QHS PO 12/25/19 21:00 01/24/20 20:08 Clonazepam (KlonoPIN) 1 mg QHS PO 12/11/19 21:00 12/25/19 09:11 DC 12/24/19 20:18 Cyclobenzaprine HCl (Flexeril) 5 mg BIDP PRN PO MUSCLE SPASMS 12/13/19 21:15 01/14/20 09:06 DC 01/13/20 22:35 Docusate Sodium (Colace) 100 mg BID PRN PO CONSTIPATION 12/11/19 19:00 01/14/20 09:06 DC 01/07/20 07:17 Haloperidol (Haldol) 5 mg BID PO 12/25/19 09:00 01/21/20 09:00 DC 01/14/20 23:16 Haloperidol (Haldol) 5 mg BID PO 01/22/20 21:00 Haloperidol (Haldol) 5 mg Q6HP PRN PO AGITATION 12/28/19 10:15 01/21/20 09:01 DC 01/12/20 15:21 Home Med (Med Rec Complete!) ASDIRECTED XX 12/11/19 18:45 12/11/19 18:40 DC Ibuprofen (Advil) 600 mg Q8HP PRN PO PAIN 12/28/19 10:15 01/04/20 10:46 DC 01/04/20 06:43 Lidocaine (Lidoderm Patch) 1 patch DAILY PRN TD LOWER BACK PAIN 12/12/19 09:00 01/24/20 09:39 Lorazepam (Ativan) 1 mg BID PRN PO ANXIETY/AGITATION 01/23/20 16:45 01/25/20 01:55 Lorazepam (Ativan) 1 mg BIDP PRN PO ANXIETY/AGITATION 12/16/19 13:45 12/23/19 13:44 DC 12/23/19 04:49 Lorazepam (Ativan) 1 mg BIDP PRN PO ANXIETY/AGITATION 12/23/19 14:15 12/30/19 14:14 DC 12/29/19 21:02 Lorazepam (Ativan) 1 mg STAT STAT PO 01/23/20 16:36 01/23/20 16:37 DC 01/23/20 17:06 Lorazepam (Ativan) 2 mg STAT STAT PO 12/25/19 11:20 12/25/19 11:22 DC 12/25/19 11:25 Magnesium Hydroxide (Milk Of Magnesia) 30 ml DAILYPRN PRN PO CONSTIPATION 12/11/19 19:00 01/02/20 13:18 Menthol/Methyl Salicylate (Bengay Cream) APPLY TO BILATERAL KNEES ... Q8H PRN TOP KNEE PAIN 12/11/19 19:00 01/14/20 09:06 DC 01/13/20 20:44 Miscellaneous (Unresolved Clarification Entry) SEE LABEL COMMENTS DAILY XX 01/06/20 09:00 01/06/20 09:42 DC Miscellaneous (Unresolved Clarification Entry) SEE LABEL COMMENTS DAILY XX 01/01/20 09:00 01/01/20 11:03 DC Nicotine (Nicoderm Cq 14mg) 1 patch DAILY TD 01/21/20 09:00 01/25/20 08:05 Nicotine (Nicoderm Cq 21mg) 1 patch DAILY TD 12/12/19 09:00 01/14/20 09:06 DC 01/13/20 08:19 Non-Formulary Medication ( See Comment Field Below ) REMOVE LIDODERM PATCH DAILY@21 XX 12/11/19 21:00 01/24/20 20:09 Olanzapine (ZyPREXA ZYDIS) 5 mg Q4HP PRN PO AGITATION 12/14/19 21:15 12/28/19 10:13 DC 12/26/19 08:27 Olanzapine (ZyPREXA ZYDIS) 5 mg QHS PO 12/11/19 21:00 12/12/19 11:49 DC 12/11/19 22:22 Ondansetron HCl (Zofran Odt) 4 mg Q8H PRN PO NAUSEA 12/11/19 19:00 01/14/20 09:06 DC 01/13/20 10:49 Paliperidone Palmitate (Invega Sustenna) 234 mg Q30D IM 12/22/19 09:00 12/25/19 09:11 DC 12/22/19 08:23 Phenyleph/Shark Oil/Min Oil/Petrol (Preparation H Ointment) BID PRN TOP hemorroids 01/02/20 10:30 01/14/20 09:06 DC 01/12/20 15:23 Polyethylene Glycol (Miralax) 1 pkt DAILY PRN PO CONSTIPATION 12/11/19 19:00 01/24/20 22:03 Risperidone (RisperDAL) 1 mg QHS PO 12/20/19 21:00 12/25/19 09:11 DC 12/20/19 20:07 Sucralfate (Carafate Suspension) 1 gm BID PO 12/15/19 21:00 01/25/20 08:05 Sucralfate (Carafate) 1 gm BID PO 12/11/19 21:00 12/15/19 12:59 DC 12/15/19 08:46 Topiramate (TopAMAX) 100 mg BID PO 01/17/20 09:00 01/25/20 08:05 Allergies Coded Allergies: Penicillins (Unverified Allergy, Unknown, 12/14/19) diethylene glycol (Unverified Allergy, Unknown, 12/14/19) ALSO CALLED CARBITOL divalproex sodium (Unverified Allergy, Unknown, Unverified reaction. It is SUSPECT, 12/14/19) fluphenazine (Unverified Allergy, Unknown, UNVERIFIED REACTION. IT IS SUSPECT, 12/14/19) lithium (Unverified Allergy, Unknown, UNVERIFIED REACTION. IT IS SUSPECT., 12/14/19) meperidine (Unverified Allergy, Unknown, 12/14/19) metoclopramide (Unverified Allergy, Unknown, 12/14/19) olanzapine (Unverified Allergy, Unknown, 12/14/19) PT CANNOT VERBALIZE ACTUAL REACTION TO MEDICATION, HAS TAKEN PREVIOUS DOSES ON UNIT WITHOUT INCIDENT ranitidine (Unverified Allergy, Unknown, 12/14/19) risperidone (Unverified Allergy, Unknown, Unverified reaction. It is SUSPECT., 12/14/19) sertraline (Unverified Allergy, Unknown, Unverified reaction. It is SUSPECT, 12/14/19) acetaminophen (Verified Adverse Reaction, Unknown, PT HX HEP B, HEP C, 12/11/19) haloperidol (Verified Adverse Reaction, Unknown, makes me go crazy, 12/11/19) uNVERIFIED REACTION. IT IS SUSPECT SANDI MORAN NP Jan 25, 2020 13:12
[2020-01-25] MEDS: LIDOCAINE 5% (LIDODERM) PATCH TD PRN (14:57)
[2020-01-25 16:22] VITALS: BP 143/86
[2020-01-25] MEDS: risperiDONE 3 MG TAB PO SCH (21:00)
[2020-01-26] MEDS: ACETAMINOPHEN TAB 650MG DOSE (2X325MG) PO PRN ×4 (00:50→22:54)
[2020-01-26] MEDS: haloperidoL 5 MG TAB PO SCH ×2 (08:01→20:18)
[2020-01-26] MEDS: TOPIRAMATE (TopAMAX) 100 MG TAB PO SCH ×2 (08:08→20:20)
[2020-01-26] MEDS: PILL CUTTER 1 EACH XX PRN ×2 (08:08→20:21)
[2020-01-26] MEDS: SUCRALFATE SUSP 1GM/10ML UD PO SCH ×2 (08:08→20:20)
[2020-01-26] MEDS: NICOTINE 14 MG/24 HR TRANSDERMAL TD SCH (08:10)
[2020-01-26] MEDS: clonazePAM 0.5 MG TAB PO SCH ×2 (08:11→20:20)
[2020-01-26] MEDS: LORazepam 1 MG TAB PO PRN ×2 (12:17→23:46)
[2020-01-26 16:17] VITALS: BP 120/71
[2020-01-26] MEDS: risperiDONE 3 MG TAB PO SCH (20:18)
[2020-01-27] MEDS: ACETAMINOPHEN TAB 650MG DOSE (2X325MG) PO PRN ×3 (07:49→23:32)
[2020-01-27] MEDS: TOPIRAMATE (TopAMAX) 100 MG TAB PO SCH ×2 (08:41→20:14)
[2020-01-27] MEDS: PILL CUTTER 1 EACH XX PRN (08:41)
[2020-01-27] MEDS: clonazePAM 0.5 MG TAB PO SCH ×2 (08:41→20:14)
[2020-01-27] MEDS: SUCRALFATE SUSP 1GM/10ML UD PO SCH ×2 (08:41→20:14)
[2020-01-27] MEDS: NICOTINE 14 MG/24 HR TRANSDERMAL TD SCH (08:41)
[2020-01-27] MEDS ORDERED: INFLUENZA QUADRIVALENT PF VACCINE 0.5ML SYRINGE IM ONE (09:00)
[2020-01-27] MEDS: haloperidoL 5 MG TAB PO SCH ×2 (09:00→20:12)
[2020-01-27] MEDS: LORazepam 1 MG TAB PO PRN ×2 (13:06→23:31)
[2020-01-27] MEDS ORDERED: risperiDONE 3 MG TAB PO ONE (15:00)
[2020-01-27 16:19] VITALS: BP_SYST 138; BP_SYST 148; BP_DIAS 80; BP_DIAS 87
[2020-01-27] MEDS: MIRALAX *UNIT DOSE* 17GM PACKET PO PRN (20:43)
[2020-01-28] MEDS: ACETAMINOPHEN TAB 650MG DOSE (2X325MG) PO PRN ×2 (07:29→20:19)
[2020-01-28] MEDS: PILL CUTTER 1 EACH XX PRN (08:17)
[2020-01-28] MEDS: SUCRALFATE SUSP 1GM/10ML UD PO SCH ×2 (08:20→20:17)
[2020-01-28] MEDS: clonazePAM 0.5 MG TAB PO SCH ×2 (08:20→20:18)
[2020-01-28] MEDS: TOPIRAMATE (TopAMAX) 100 MG TAB PO SCH ×2 (08:20→20:19)
[2020-01-28] MEDS: NICOTINE 14 MG/24 HR TRANSDERMAL TD SCH (08:20)
[2020-01-28] MEDS: haloperidoL 5 MG TAB PO SCH ×2 (09:00→21:00)
[2020-01-28] MEDS: LIDOCAINE 5% (LIDODERM) PATCH TD PRN (13:18)
[2020-01-28] MEDS: LORazepam 1 MG TAB PO PRN (13:18)
[2020-01-28] MEDS: risperiDONE 3 MG TAB PO SCH (15:24)
--- NOTE | 2020-01-28 15:27 | MHIPNPDOC ---
[facility] Progress Note Progress Note DATE OF SERVICE: 01/28/20 HISTORY: This is Day 50 for patient who is a 49 year old Single, Disabled, Undomiciled, Female. She was a 9.41 to [facility] for manic, bizarre and delusional behaviors in the community. VITAL SIGNS: See below. NEW TEST RESULTS: see results CURRENT MEDICATIONS: See below. MENTAL STATUS EXAMINATION: Patient is a 49-year old Single, Disabled, Undomiciled, female, who is admitted to [facility] for manic, bizarre and delusional behaviors in the community. She is currently admitted on a 2 PC legal status. On 01/26/20, patient had treatment over objection hearing. Court ruled in favor of the hospital. At this time, we are awaiting medication ruling. While she has been admitted, patient has continued to be hypomanic, bizarre, religiously preoccupied and preo ccupied with rock stars. Speech: Is Fast, flight of ideas, tangential. Low tone and volume. Language skills are good Thought processes including: in todays interview she is at times disorganized but mostly with flight of ideas. Thought content: denies kevin, reporting depressive symptoms. She is dressed bizarrely and continues to sanaz, patients room is decorated in a disarray of pages of magazines that she has posted to the [facility]. Abstract reasoning, and computation: fair. Description of associations: she is mildly preoccupied with musicians Description of abnormal or psychotic thoughts: denies any abnormal thoughts, but is talking about musicians. Judgment: poor to fair at times Insight: poor to fair at times Orientation: alert and oriented Recent and remote memory: intact Attention span and concentration: fair Language: expansive Fund of knowledge: average Mood: depressed. Affect: flat DIAGNOSES: Bipolar I Disorder, Recurrent, Manic Episode ASSESSMENT: Patient presents with depressed mood and affect. She reports that Risperdal makes her have suicidal ideation and depressed. She is less hypomanic today but remains minimally bizarre in dress and unkempt. Patients speech is low. She is redirectable and was able to do well in groups. In my interview with me, she was tangential but not as manic as she was last week. MANAGEMENT PLAN: Continue medications, patient is agreeable to Risperdal now and order has been changed. TIME SPENT: 20 minutes. Vital Signs Vital Signs Date Time Temp Pulse Resp B/P (MAP) Pulse Ox O2 Delivery O2 Flow Rate FiO2 01/27/20 16:19 98.7 92 18 138/80 (99) 01/24/20 09:11 Room Air Current Medications Current Medications Medications (Trade) Dose Ordered Sig/Jackelyn Route PRN Reason Start Time Stop Time Status Last Admin Dose Admin Acetaminophen (Tylenol Tab) 650 mg Q6H PRN PO HEADACHE OR DISCOMFORT 12/11/19 19:00 12/28/19 10:13 DC 12/28/19 04:47 Acetaminophen (Tylenol Tab) 650 mg Q6HP PRN PO PAIN / FEVER 01/05/20 18:45 01/28/20 07:29 Al Hydrox/Mg Hydrox/Simethicone (Mylanta) 30 ml Q4H PRN PO HEARTBURN/INDIGESTION 12/11/19 19:00 01/22/20 14:13 Albuterol Sulfate (Proventil, Ventolin Hfa) 2 puff Q6H PRN INH SHORTNESS OF BREATH 12/11/19 18:00 01/17/20 20:15 Aripiprazole (AbiLIFY) 5 mg QHS PO 12/11/19 21:00 12/11/19 18:00 DC Aripiprazole (AbiLIFY) 5 mg QHS PO 12/12/19 21:00 12/15/19 12:54 DC 12/13/19 21:21 Cariprazine (Vraylar) 3 mg QHS PO 12/15/19 21:00 12/25/19 09:11 DC 12/21/19 20:18 Cetylpyridinium Chloride (Cepacol) 1 karoline Q6H PRN PO SORE THROAT 12/12/19 12:00 01/14/20 09:06 DC 01/13/20 20:44 Clonazepam (KlonoPIN) 0.25 mg QAM PO 12/21/19 09:00 01/28/20 08:20 Clonazepam (KlonoPIN) 0.5 mg QAM PO 12/12/19 09:00 12/21/19 09:07 DC 12/21/19 08:21 Clonazepam (KlonoPIN) 0.75 mg QHS PO 12/25/19 21:00 01/27/20 20:14 Clonazepam (KlonoPIN) 1 mg QHS PO 12/11/19 21:00 12/25/19 09:11 DC 12/24/19 20:18 Cyclobenzaprine HCl (Flexeril) 5 mg BIDP PRN PO MUSCLE SPASMS 12/13/19 21:15 01/14/20 09:06 DC 01/13/20 22:35 Docusate Sodium (Colace) 100 mg BID PRN PO CONSTIPATION 12/11/19 19:00 01/14/20 09:06 DC 01/07/20 07:17 Haloperidol (Haldol) 5 mg BID PO 12/25/19 09:00 01/21/20 09:00 DC 01/14/20 23:16 Haloperidol (Haldol) 5 mg BID PO 01/22/20 21:00 Haloperidol (Haldol) 5 mg Q6HP PRN PO AGITATION 12/28/19 10:15 01/21/20 09:01 DC 01/12/20 15:21 Home Med (Med Rec Complete!) ASDIRECTED XX 12/11/19 18:45 12/11/19 18:40 DC Ibuprofen (Advil) 600 mg Q8HP PRN PO PAIN 12/28/19 10:15 01/04/20 10:46 DC 01/04/20 06:43 Lidocaine (Lidoderm Patch) 1 patch DAILY PRN TD LOWER BACK PAIN 12/12/19 09:00 01/28/20 13:18 Lorazepam (Ativan) 1 mg BID PRN PO ANXIETY/AGITATION 01/23/20 16:45 01/28/20 13:18 Lorazepam (Ativan) 1 mg BIDP PRN PO ANXIETY/AGITATION 12/16/19 13:45 12/23/19 13:44 DC 12/23/19 04:49 Lorazepam (Ativan) 1 mg BIDP PRN PO ANXIETY/AGITATION 12/23/19 14:15 12/30/19 14:14 DC 12/29/19 21:02 Lorazepam (Ativan) 1 mg STAT STAT PO 01/23/20 16:36 01/23/20 16:37 DC 01/23/20 17:06 Lorazepam (Ativan) 2 mg STAT STAT PO 12/25/19 11:20 12/25/19 11:22 DC 12/25/19 11:25 Magnesium Hydroxide (Milk Of Magnesia) 30 ml DAILYPRN PRN PO CONSTIPATION 12/11/19 19:00 01/02/20 13:18 Menthol/Methyl Salicylate (Bengay Cream) APPLY TO BILATERAL KNEES ... Q8H PRN TOP KNEE PAIN 12/11/19 19:00 01/14/20 09:06 DC 01/13/20 20:44 Miscellaneous (Unresolved Clarification Entry) SEE LABEL COMMENTS DAILY XX 01/06/20 09:00 01/06/20 09:42 DC Miscellaneous (Unresolved Clarification Entry) SEE LABEL COMMENTS DAILY XX 01/01/20 09:00 01/01/20 11:03 DC Nicotine (Nicoderm Cq 14mg) 1 patch DAILY TD 01/21/20 09:00 01/28/20 08:20 Nicotine (Nicoderm Cq 21mg) 1 patch DAILY TD 12/12/19 09:00 01/14/20 09:06 DC 01/13/20 08:19 Non-Formulary Medication ( See Comment Field Below ) REMOVE LIDODERM PATCH DAILY@21 XX 12/11/19 21:00 01/26/20 20:18 Olanzapine (ZyPREXA ZYDIS) 5 mg Q4HP PRN PO AGITATION 12/14/19 21:15 12/28/19 10:13 DC 12/26/19 08:27 Olanzapine (ZyPREXA ZYDIS) 5 mg QHS PO 12/11/19 21:00 12/12/19 11:49 DC 12/11/19 22:22 Ondansetron HCl (Zofran Odt) 4 mg Q8H PRN PO NAUSEA 12/11/19 19:00 01/14/20 09:06 DC 01/13/20 10:49 Paliperidone Palmitate (Invega Sustenna) 234 mg Q30D IM 12/22/19 09:00 12/25/19 09:11 DC 12/22/19 08:23 Phenyleph/Shark Oil/Min Oil/Petrol (Preparation H Ointment) BID PRN TOP hemorroids 01/02/20 10:30 01/14/20 09:06 DC 01/12/20 15:23 Polyethylene Glycol (Miralax) 1 pkt DAILY PRN PO CONSTIPATION 12/11/19 19:00 01/27/20 20:43 Risperidone (RisperDAL) 1 mg QHS PO 12/20/19 21:00 12/25/19 09:11 DC 12/20/19 20:07 Risperidone (RisperDAL) 3 mg QHS PO 01/25/20 21:00 01/28/20 09:04 DC Risperidone (RisperDAL) 3 mg QHS PO 01/28/20 21:00 Sucralfate (Carafate Suspension) 1 gm BID PO 12/15/19 21:00 01/28/20 08:20 Sucralfate (Carafate) 1 gm BID PO 12/11/19 21:00 12/15/19 12:59 DC 12/15/19 08:46 Topiramate (TopAMAX) 100 mg BID PO 01/17/20 09:00 01/28/20 08:20 Allergies Coded Allergies: Penicillins (Unverified Allergy, Unknown, 12/14/19) diethylene glycol (Unverified Allergy, Unknown, 12/14/19) ALSO CALLED CARBITOL divalproex sodium (Unverified Allergy, Unknown, Unverified reaction. It is SUSPECT, 12/14/19) fluphenazine (Unverified Allergy, Unknown, UNVERIFIED REACTION. IT IS SUSPECT, 12/14/19) lithium (Unverified Allergy, Unknown, UNVERIFIED REACTION. IT IS SUSPECT., 12/14/19) meperidine (Unverified Allergy, Unknown, 12/14/19) metoclopramide (Unverified Allergy, Unknown, 12/14/19) olanzapine (Unverified Allergy, Unknown, 12/14/19) PT CANNOT VERBALIZE ACTUAL REACTION TO MEDICATION, HAS TAKEN PREVIOUS DOSES ON UNIT WITHOUT INCIDENT ranitidine (Unverified Allergy, Unknown, 12/14/19) risperidone (Unverified Allergy, Unknown, Unverified reaction. It is SUSPECT., 12/14/19) sertraline (Unverified Allergy, Unknown, Unverified reaction. It is SUSPECT, 12/14/19) acetaminophen (Verified Adverse Reaction, Unknown, PT HX HEP B, HEP C, 12/11/19) haloperidol (Verified Adverse Reaction, Unknown, makes me go crazy, 12/11/19) uNVERIFIED REACTION. IT IS SUSPECT SANDI MORAN NP Jan 28, 2020 15:27
[2020-01-28 17:56] VITALS: BP 128/60
[2020-01-28] MEDS ORDERED: risperiDONE 3 MG TAB PO SCH (21:00)
[2020-01-29] MEDS: LORazepam 1 MG TAB PO PRN ×2 (01:36→13:16)
[2020-01-29] MEDS: haloperidoL 5 MG TAB PO SCH ×2 (09:00→21:00)
[2020-01-29] MEDS: clonazePAM 0.5 MG TAB PO SCH ×2 (09:14→22:06)
[2020-01-29] MEDS: SUCRALFATE SUSP 1GM/10ML UD PO SCH ×2 (09:15→20:28)
[2020-01-29] MEDS: TOPIRAMATE (TopAMAX) 100 MG TAB PO SCH ×2 (09:16→22:06)
[2020-01-29] MEDS: risperiDONE 3 MG TAB PO SCH (09:16)
--- NOTE | 2020-01-29 09:16 | MHIPNPDOC ---
[facility] Progress Note Progress Note DATE OF SERVICE: 01/29/20 HISTORY: This is Day 50 for patient who is a 49 year old Single, Disabled, Undomiciled, Female. She was a 9.41 to [facility] for manic, bizarre and delusional behaviors in the community. VITAL SIGNS: See below. NEW TEST RESULTS: see results CURRENT MEDICATIONS: See below. MENTAL STATUS EXAMINATION: Patient is a 49-year old Single, Disabled, Undomiciled, female, who is admitted to [facility] for manic, bizarre and delusional behaviors in the community. She is currently admitted on a 2 PC legal status. On 01/26/20, patient had treatment over objection hearing. Court ruled in favor of the hospital. At this time, we are awaiting medication ruling. While she has been admitted, patient has continued to be hypomanic, bizarre, religiously preoccupied and preo ccupied with rock stars. Speech: Is mildly fast, low tone and volume. She is less tangential in today's interview. Language skills are good Thought processes including: in todays interview she is at more linear than yesterday. Thought content: denies kevin, reporting depressive symptoms. Abstract reasoning, and computation: fair. Description of associations: she is mildly preoccupied with peer's report that his friend suicided. She reports that she could never hurt herself in that way. Description of abnormal or psychotic thoughts: denies any abnormal thoughts. Judgment: poor to fair at times Insight: poor to fair at times Orientation: alert and oriented Recent and remote memory: intact Attention span and concentration: fair Language: expansive Fund of knowledge: average Mood: "I feel anxious". Affect: flat DIAGNOSES: Bipolar I Disorder, Recurrent, Manic Episode ASSESSMENT: Patient presents with anxiety but reporting no depression. She is mildly disheveled but apologizes and states she just work up and hasn't showered. She has been agreeable to Risperdal and reports that she is slowing down, denies racing thoughts. She appears to have some improvement in speech, and is less tangential. According to staff, she was focused on Lorazepam and is continuing to sanaz food in her room. She had placed food on her toilet seat. It was reported that she had less than 3 hours of sleep. She is requesting to take her Risperdal during the day, she reports that she has suicidal thinking when she takes it. While it is imperative that she sleeps, given the fact that the patient has in the past refused most antipsychotic medications, I have ordered the Risperdal to be given in the afternoon - she states "I want to take it in the afternoon so that I can talk to people during the day when I can talk to people, if I take it at night I don't have anyone to talk to and that's not good if I am having those thoughts." . MANAGEMENT PLAN: Patient will be discharged when stable. TIME SPENT: 15 minutes. Vital Signs Vital Signs Date Time Temp Pulse Resp B/P (MAP) Pulse Ox O2 Delivery O2 Flow Rate FiO2 01/28/20 17:56 97.3 97 102 128/60 (82) 100 Room Air Current Medications Current Medications Medications (Trade) Dose Ordered Sig/Jackelyn Route PRN Reason Start Time Stop Time Status Last Admin Dose Admin Acetaminophen (Tylenol Tab) 650 mg Q6H PRN PO HEADACHE OR DISCOMFORT 12/11/19 19:00 12/28/19 10:13 DC 12/28/19 04:47 Acetaminophen (Tylenol Tab) 650 mg Q6HP PRN PO PAIN / FEVER 01/05/20 18:45 01/28/20 20:19 Al Hydrox/Mg Hydrox/Simethicone (Mylanta) 30 ml Q4H PRN PO HEARTBURN/INDIGESTION 12/11/19 19:00 01/22/20 14:13 Albuterol Sulfate (Proventil, Ventolin Hfa) 2 puff Q6H PRN INH SHORTNESS OF BREATH 12/11/19 18:00 01/17/20 20:15 Aripiprazole (AbiLIFY) 5 mg QHS PO 12/11/19 21:00 12/11/19 18:00 DC Aripiprazole (AbiLIFY) 5 mg QHS PO 12/12/19 21:00 12/15/19 12:54 DC 12/13/19 21:21 Cariprazine (Vraylar) 3 mg QHS PO 12/15/19 21:00 12/25/19 09:11 DC 12/21/19 20:18 Cetylpyridinium Chloride (Cepacol) 1 karoline Q6H PRN PO SORE THROAT 12/12/19 12:00 01/14/20 09:06 DC 01/13/20 20:44 Clonazepam (KlonoPIN) 0.25 mg QAM PO 12/21/19 09:00 01/28/20 08:20 Clonazepam (KlonoPIN) 0.5 mg QAM PO 12/12/19 09:00 12/21/19 09:07 DC 12/21/19 08:21 Clonazepam (KlonoPIN) 0.75 mg QHS PO 12/25/19 21:00 01/28/20 20:18 Clonazepam (KlonoPIN) 1 mg QHS PO 12/11/19 21:00 12/25/19 09:11 DC 12/24/19 20:18 Cyclobenzaprine HCl (Flexeril) 5 mg BIDP PRN PO MUSCLE SPASMS 12/13/19 21:15 01/14/20 09:06 DC 01/13/20 22:35 Docusate Sodium (Colace) 100 mg BID PRN PO CONSTIPATION 12/11/19 19:00 01/14/20 09:06 DC 01/07/20 07:17 Haloperidol (Haldol) 5 mg BID PO 12/25/19 09:00 01/21/20 09:00 DC 01/14/20 23:16 Haloperidol (Haldol) 5 mg BID PO 01/22/20 21:00 Haloperidol (Haldol) 5 mg Q6HP PRN PO AGITATION 12/28/19 10:15 01/21/20 09:01 DC 01/12/20 15:21 Home Med (Med Rec Complete!) ASDIRECTED XX 12/11/19 18:45 12/11/19 18:40 DC Ibuprofen (Advil) 600 mg Q8HP PRN PO PAIN 12/28/19 10:15 01/04/20 10:46 DC 01/04/20 06:43 Lidocaine (Lidoderm Patch) 1 patch DAILY PRN TD LOWER BACK PAIN 12/12/19 09:00 01/28/20 13:18 Lorazepam (Ativan) 1 mg BID PRN PO ANXIETY/AGITATION 01/23/20 16:45 01/29/20 01:36 Lorazepam (Ativan) 1 mg BIDP PRN PO ANXIETY/AGITATION 12/16/19 13:45 12/23/19 13:44 DC 12/23/19 04:49 Lorazepam (Ativan) 1 mg BIDP PRN PO ANXIETY/AGITATION 12/23/19 14:15 12/30/19 14:14 DC 12/29/19 21:02 Lorazepam (Ativan) 1 mg STAT STAT PO 01/23/20 16:36 01/23/20 16:37 DC 01/23/20 17:06 Lorazepam (Ativan) 2 mg STAT STAT PO 12/25/19 11:20 12/25/19 11:22 DC 12/25/19 11:25 Magnesium Hydroxide (Milk Of Magnesia) 30 ml DAILYPRN PRN PO CONSTIPATION 12/11/19 19:00 01/02/20 13:18 Menthol/Methyl Salicylate (Bengay Cream) APPLY TO BILATERAL KNEES ... Q8H PRN TOP KNEE PAIN 12/11/19 19:00 01/14/20 09:06 DC 01/13/20 20:44 Miscellaneous (Unresolved Clarification Entry) SEE LABEL COMMENTS DAILY XX 01/06/20 09:00 01/06/20 09:42 DC Miscellaneous (Unresolved Clarification Entry) SEE LABEL COMMENTS DAILY XX 01/01/20 09:00 01/01/20 11:03 DC Nicotine (Nicoderm Cq 14mg) 1 patch DAILY TD 01/21/20 09:00 01/28/20 08:20 Nicotine (Nicoderm Cq 21mg) 1 patch DAILY TD 12/12/19 09:00 01/14/20 09:06 DC 01/13/20 08:19 Non-Formulary Medication ( See Comment Field Below ) REMOVE LIDODERM PATCH DAILY@ XX 12/11/19 21:00 01/28/20 21:00 Olanzapine (ZyPREXA ZYDIS) 5 mg Q4HP PRN PO AGITATION 12/14/19 21:15 12/28/19 10:13 DC 12/26/19 08:27 Olanzapine (ZyPREXA ZYDIS) 5 mg QHS PO 12/11/19 21:00 12/12/19 11:49 DC 12/11/19 22:22 Ondansetron HCl (Zofran Odt) 4 mg Q8H PRN PO NAUSEA 12/11/19 19:00 01/14/20 09:06 DC 01/13/20 10:49 Paliperidone Palmitate (Invega Sustenna) 234 mg Q30D IM 12/22/19 09:00 12/25/19 09:11 DC 12/22/19 08:23 Phenyleph/Shark Oil/Min Oil/Petrol (Preparation H Ointment) BID PRN TOP hemorroids 01/02/20 10:30 01/14/20 09:06 DC 01/12/20 15:23 Polyethylene Glycol (Miralax) 1 pkt DAILY PRN PO CONSTIPATION 12/11/19 19:00 01/27/20 20:43 Risperidone (RisperDAL) 1 mg QHS PO 12/20/19 21:00 12/25/19 09:11 DC 12/20/19 20:07 Risperidone (RisperDAL) 3 mg DAILY PO 01/28/20 09:00 01/28/20 15:24 Risperidone (RisperDAL) 3 mg QHS PO 01/25/20 21:00 01/28/20 09:04 DC Risperidone (RisperDAL) 3 mg QHS PO 01/28/20 21:00 01/28/20 15:02 DC Sucralfate (Carafate Suspension) 1 gm BID PO 12/15/19 21:00 01/28/20 20:17 Sucralfate (Carafate) 1 gm BID PO 12/11/19 21:00 12/15/19 12:59 DC 12/15/19 08:46 Topiramate (TopAMAX) 100 mg BID PO 01/17/20 09:00 01/28/20 20:19 Allergies Coded Allergies: Penicillins (Unverified Allergy, Unknown, 12/14/19) diethylene glycol (Unverified Allergy, Unknown, 12/14/19) ALSO CALLED CARBITOL divalproex sodium (Unverified Allergy, Unknown, Unverified reaction. It is SUSPECT, 12/14/19) fluphenazine (Unverified Allergy, Unknown, UNVERIFIED REACTION. IT IS SUSPECT, 12/14/19) lithium (Unverified Allergy, Unknown, UNVERIFIED REACTION. IT IS SUSPECT., 12/14/19) meperidine (Unverified Allergy, Unknown, 12/14/19) metoclopramide (Unverified Allergy, Unknown, 12/14/19) olanzapine (Unverified Allergy, Unknown, 12/14/19) PT CANNOT VERBALIZE ACTUAL REACTION TO MEDICATION, HAS TAKEN PREVIOUS DOSES ON UNIT WITHOUT INCIDENT ranitidine (Unverified Allergy, Unknown, 12/14/19) risperidone (Unverified Allergy, Unknown, Unverified reaction. It is SUSPECT., 12/14/19) sertraline (Unverified Allergy, Unknown, Unverified reaction. It is SUSPECT, 12/14/19) acetaminophen (Verified Adverse Reaction, Unknown, PT HX HEP B, HEP C, 12/11/19) haloperidol (Verified Adverse Reaction, Unknown, makes me go crazy, 12/11/19) uNVERIFIED REACTION. IT IS SUSPECT SANDI MORAN NP Jan 29, 2020 09:15
[2020-01-29] MEDS: ACETAMINOPHEN TAB 650MG DOSE (2X325MG) PO PRN ×2 (09:17→18:48)
[2020-01-29] MEDS: NICOTINE 14 MG/24 HR TRANSDERMAL TD SCH (09:17)
[2020-01-29] MEDS: PILL CUTTER 1 EACH XX PRN (09:18)
[2020-01-29] MEDS: BENZTROPINE 1 MG TAB PO PRN (13:54)
[2020-01-29 18:13] VITALS: BP 158/80
[2020-01-29] MEDS: MIRALAX *UNIT DOSE* 17GM PACKET PO PRN (18:47)
[2020-01-29] MEDS ORDERED: diphenhydrAMINE 25MG CAP PO ONE (19:45)
[2020-01-29] MEDS ORDERED: ARIPiprazole 10 MG TAB PO ONE (19:45)
[2020-01-29] MEDS ORDERED: LORazepam 1 MG TAB PO ONE (19:45)
[2020-01-30] MEDS: SUCRALFATE SUSP 1GM/10ML UD PO SCH ×2 (08:22→20:05)
[2020-01-30] MEDS: NICOTINE 14 MG/24 HR TRANSDERMAL TD SCH (08:22)
[2020-01-30] MEDS: TOPIRAMATE (TopAMAX) 100 MG TAB PO SCH ×2 (08:22→20:05)
[2020-01-30] MEDS: haloperidoL 5 MG TAB PO SCH (09:00)
[2020-01-30] MEDS: clonazePAM 0.5 MG TAB PO SCH ×3 (09:00→20:05)
[2020-01-30] MEDS: LORazepam 1 MG TAB PO PRN (10:44)
[2020-01-30] MEDS: BENZTROPINE 1 MG TAB PO PRN (10:44)
[2020-01-30] MEDS: LIDOCAINE 5% (LIDODERM) PATCH TD PRN (13:04)
--- NOTE | 2020-01-30 16:41 | MHIPNPDOC ---
[facility] Progress Note Progress Note DATE OF SERVICE: 01/30/20 HISTORY: Patient is a 49 year old Single, Disabled, Undomiciled, Female. She was a 9.41 to [facility] for manic, bizarre and delusional behaviors in the community. VITAL SIGNS: See below. NEW TEST RESULTS: see results CURRENT MEDICATIONS: See below. MENTAL STATUS EXAMINATION: Patient is a 49-year old Single, Disabled, Undomiciled, female, who is admitted to [facility] for manic, bizarre and delusional behaviors in the community. She is currently admitted on a 2 PC legal status. On 01/26/20, patient had treatment over objection hearing. Court ruled in favor of the hospital. At this time, we are awaiting medication ruling. While she has been admitted, patient has continued to be hypomanic, bizarre, religiously preoccupied and preoccupied with rock stars. Speech: normal low tone and volume. no racing speech Language skills are good Thought processes including: reality based, linear. Thought content: denies kevin, observed with mild depression. Abstract reasoning, and computation: fair. Description of associations: . Description of abnormal or psychotic thoughts: denies any abnormal thoughts. Judgment: fair at times Insight: fair at times Orientation: alert and oriented Recent and remote memory: intact Attention span and concentration: fair Language: expansive Fund of knowledge: average Mood: "I feel anxious". Affect: flat DIAGNOSES: Bipolar I Disorder, Recurrent, Manic Episode ASSESSMENT: Patient presents with anxiety but reporting no depression. Patient is agreeable to Haldol 10 mg oral, She was given Haldol 10 mg Ativan 1 mg and Cogentin 1 mg for EPS. Patient is also agreeable to Haldol Decanoate which will be ordered in a few days. According to her last admission, this was the medication regimen that allowed her to be discharged because she quickly resolved and patient is hopeful to be discharged and she is motivated for stabilization. . MANAGEMENT PLAN: Patient will be discharged when stable. TIME SPENT: 20 minutes. Vital Signs Vital Signs Date Time Temp Pulse Resp B/P (MAP) Pulse Ox O2 Delivery O2 Flow Rate FiO2 01/29/20 18:13 97.5 104 16 158/80 (106) 01/28/20 17:56 100 Room Air Current Medications Current Medications Medications (Trade) Dose Ordered Sig/Jackelyn Route PRN Reason Start Time Stop Time Status Last Admin Dose Admin Acetaminophen (Tylenol Tab) 650 mg Q6H PRN PO HEADACHE OR DISCOMFORT 12/11/19 19:00 12/28/19 10:13 DC 12/28/19 04:47 Acetaminophen (Tylenol Tab) 650 mg Q6HP PRN PO PAIN / FEVER 01/05/20 18:45 01/29/20 18:48 Al Hydrox/Mg Hydrox/Simethicone (Mylanta) 30 ml Q4H PRN PO HEARTBURN/INDIGESTION 12/11/19 19:00 01/22/20 14:13 Albuterol Sulfate (Proventil, Ventolin Hfa) 2 puff Q6H PRN INH SHORTNESS OF BREATH 12/11/19 18:00 01/17/20 20:15 Aripiprazole (AbiLIFY) 5 mg QHS PO 12/11/19 21:00 12/11/19 18:00 DC Aripiprazole (AbiLIFY) 5 mg QHS PO 12/12/19 21:00 12/15/19 12:54 DC 12/13/19 21:21 Benztropine Mesylate (Cogentin) 1 mg BID PRN PO EPS 01/29/20 13:45 01/30/20 10:44 Cariprazine (Vraylar) 3 mg QHS PO 12/15/19 21:00 12/25/19 09:11 DC 12/21/19 20:18 Cetylpyridinium Chloride (Cepacol) 1 karoline Q6H PRN PO SORE THROAT 12/12/19 12:00 01/14/20 09:06 DC 01/13/20 20:44 Clonazepam (KlonoPIN) 0.25 mg QAM PO 12/21/19 09:00 01/30/20 13:03 Clonazepam (KlonoPIN) 0.5 mg QAM PO 12/12/19 09:00 12/21/19 09:07 DC 12/21/19 08:21 Clonazepam (KlonoPIN) 0.75 mg QHS PO 12/25/19 21:00 01/29/20 22:06 Clonazepam (KlonoPIN) 1 mg QHS PO 12/11/19 21:00 12/25/19 09:11 DC 12/24/19 20:18 Cyclobenzaprine HCl (Flexeril) 5 mg BIDP PRN PO MUSCLE SPASMS 12/13/19 21:15 01/14/20 09:06 DC 01/13/20 22:35 Docusate Sodium (Colace) 100 mg BID PRN PO CONSTIPATION 12/11/19 19:00 01/14/20 09:06 DC 01/07/20 07:17 Haloperidol (Haldol) 5 mg BID PO 12/25/19 09:00 01/21/20 09:00 DC 01/14/20 23:16 Haloperidol (Haldol) 5 mg BID PO 01/22/20 21:00 01/30/20 10:57 DC Haloperidol (Haldol) 5 mg Q6HP PRN PO AGITATION 12/28/19 10:15 01/21/20 09:01 DC 01/12/20 15:21 Haloperidol (Haldol) 10 mg STAT STAT PO 01/30/20 10:35 01/30/20 10:38 DC 01/30/20 10:44 Home Med (Med Rec Complete!) ASDIRECTED XX 12/11/19 18:45 12/11/19 18:40 DC Ibuprofen (Advil) 600 mg Q8HP PRN PO PAIN 12/28/19 10:15 01/04/20 10:46 DC 01/04/20 06:43 Lidocaine (Lidoderm Patch) 1 patch DAILY PRN TD LOWER BACK PAIN 12/12/19 09:00 01/30/20 13:04 Lorazepam (Ativan) 1 mg BID PRN PO ANXIETY/AGITATION 01/23/20 16:45 01/30/20 10:44 Lorazepam (Ativan) 1 mg BIDP PRN PO ANXIETY/AGITATION 12/16/19 13:45 12/23/19 13:44 DC 12/23/19 04:49 Lorazepam (Ativan) 1 mg BIDP PRN PO ANXIETY/AGITATION 12/23/19 14:15 12/30/19 14:14 DC 12/29/19 21:02 Lorazepam (Ativan) 1 mg STAT STAT PO 01/23/20 16:36 01/23/20 16:37 DC 01/23/20 17:06 Lorazepam (Ativan) 2 mg STAT STAT PO 12/25/19 11:20 12/25/19 11:22 DC 12/25/19 11:25 Magnesium Hydroxide (Milk Of Magnesia) 30 ml DAILYPRN PRN PO CONSTIPATION 12/11/19 19:00 01/02/20 13:18 Menthol/Methyl Salicylate (Bengay Cream) APPLY TO BILATERAL KNEES ... Q8H PRN TOP KNEE PAIN 12/11/19 19:00 01/14/20 09:06 DC 01/13/20 20:44 Miscellaneous (Unresolved Clarification Entry) SEE LABEL COMMENTS DAILY XX 01/06/20 09:00 01/06/20 09:42 DC Miscellaneous (Unresolved Clarification Entry) SEE LABEL COMMENTS DAILY XX 01/01/20 09:00 01/01/20 11:03 DC Nicotine (Nicoderm Cq 14mg) 1 patch DAILY TD 01/21/20 09:00 01/30/20 08:22 Nicotine (Nicoderm Cq 21mg) 1 patch DAILY TD 12/12/19 09:00 01/14/20 09:06 DC 01/13/20 08:19 Non-Formulary Medication ( See Comment Field Below ) REMOVE LIDODERM PATCH DAILY@21 XX 12/11/19 21:00 01/29/20 21:00 Olanzapine (ZyPREXA ZYDIS) 5 mg Q4HP PRN PO AGITATION 12/14/19 21:15 12/28/19 10:13 DC 12/26/19 08:27 Olanzapine (ZyPREXA ZYDIS) 5 mg QHS PO 12/11/19 21:00 12/12/19 11:49 DC 12/11/19 22:22 Ondansetron HCl (Zofran Odt) 4 mg Q8H PRN PO NAUSEA 12/11/19 19:00 01/14/20 09:06 DC 01/13/20 10:49 Paliperidone Palmitate (Invega Sustenna) 234 mg Q30D IM 12/22/19 09:00 12/25/19 09:11 DC 12/22/19 08:23 Phenyleph/Shark Oil/Min Oil/Petrol (Preparation H Ointment) BID PRN TOP hemorroids 01/02/20 10:30 01/14/20 09:06 DC 01/12/20 15:23 Polyethylene Glycol (Miralax) 1 pkt DAILY PRN PO CONSTIPATION 12/11/19 19:00 01/29/20 18:47 Risperidone (RisperDAL) 1 mg QHS PO 12/20/19 21:00 12/25/19 09:11 DC 12/20/19 20:07 Risperidone (RisperDAL) 3 mg DAILY PO 01/28/20 09:00 01/30/20 10:38 DC 01/29/20 09:16 Risperidone (RisperDAL) 3 mg QHS PO 01/25/20 21:00 01/28/20 09:04 DC Risperidone (RisperDAL) 3 mg QHS PO 01/28/20 21:00 01/28/20 15:02 DC Sucralfate (Carafate Suspension) 1 gm BID PO 12/15/19 21:00 01/30/20 08:22 Sucralfate (Carafate) 1 gm BID PO 12/11/19 21:00 12/15/19 12:59 DC 12/15/19 08:46 Topiramate (TopAMAX) 100 mg BID PO 01/17/20 09:00 01/30/20 08:22 Allergies Coded Allergies: Penicillins (Unverified Allergy, Unknown, 12/14/19) diethylene glycol (Unverified Allergy, Unknown, 12/14/19) ALSO CALLED CARBITOL divalproex sodium (Unverified Allergy, Unknown, Unverified reaction. It is SUSPECT, 12/14/19) fluphenazine (Unverified Allergy, Unknown, UNVERIFIED REACTION. IT IS SUSPECT, 12/14/19) lithium (Unverified Allergy, Unknown, UNVERIFIED REACTION. IT IS SUSPECT., 12/14/19) meperidine (Unverified Allergy, Unknown, 12/14/19) metoclopramide (Unverified Allergy, Unknown, 12/14/19) olanzapine (Unverified Allergy, Unknown, 12/14/19) PT CANNOT VERBALIZE ACTUAL REACTION TO MEDICATION, HAS TAKEN PREVIOUS DOSES ON UNIT WITHOUT INCIDENT ranitidine (Unverified Allergy, Unknown, 12/14/19) risperidone (Unverified Allergy, Unknown, Unverified reaction. It is SUSPECT., 12/14/19) sertraline (Unverified Allergy, Unknown, Unverified reaction. It is SUSPECT, 12/14/19) acetaminophen (Verified Adverse Reaction, Unknown, PT HX HEP B, HEP C, 12/11/19) haloperidol (Verified Adverse Reaction, Unknown, makes me go crazy, 12/11/19) uNVERIFIED REACTION. IT IS SUSPECT SANDI MORAN NP Jan 30, 2020 16:41
[2020-01-30] MEDS: MIRALAX *UNIT DOSE* 17GM PACKET PO PRN (16:59)
[2020-01-30] MEDS ORDERED: diphenhydrAMINE 50MG CAP PO ONE (17:00)
[2020-01-30] MEDS: ACETAMINOPHEN TAB 650MG DOSE (2X325MG) PO PRN (17:00)
[2020-01-30 17:34] VITALS: BP 143/83
[2020-01-31] MEDS: LORazepam 1 MG TAB PO PRN ×2 (00:15→09:41)
[2020-01-31 06:28] VITALS: BP 99/57
[2020-01-31] MEDS: BENZTROPINE 1 MG TAB PO PRN (08:06)
[2020-01-31] MEDS: TOPIRAMATE (TopAMAX) 100 MG TAB PO SCH ×2 (08:07→20:14)
[2020-01-31] MEDS: NICOTINE 14 MG/24 HR TRANSDERMAL TD SCH (08:07)
[2020-01-31] MEDS: SUCRALFATE SUSP 1GM/10ML UD PO SCH ×2 (08:07→20:14)
[2020-01-31] MEDS: clonazePAM 0.5 MG TAB PO SCH ×2 (08:09→20:14)
--- NOTE | 2020-01-31 13:13 | MHIPNPDOC ---
[facility] Progress Note Progress Note DATE OF SERVICE: 01/31/20 HHISTORY: Patient is a 49 year old Single, Disabled, Undomiciled, Female. She was a 9.41 to [facility] for manic, bizarre and delusional behaviors in the community. VITAL SIGNS: See below. NEW TEST RESULTS: see results CURRENT MEDICATIONS: See below. MENTAL STATUS EXAMINATION: Patient is a 49-year old Single, Disabled, Undomiciled, female, who is admitted to [facility] for manic, bizarre and delusional behaviors in the community. She is currently admitted on a 2 PC legal status. On 01/26/20, patient had treatment over objection hearing. Court ruled in favor of the hospital. At this time, we are awaiting medication ruling. While she has been admitted, patient has continued to be hypomanic, bizarre, religiously preoccupied and preoccupied with rock stars. In today's interview, she has fair attention to hygiene and grooming. Not observed with tardive dyskinesia. She re ports that she is tolerating oral Haldol with minimal complaints (states mild auditory hallucinations) eye contact is good Speech: normal low tone and volume. no racing speech Language skills are good Thought processes including: reality based, linear. Thought content: denies kevin, observed with mild depression. Abstract reasoning, and computation: fair. Description of associations: . Description of abnormal or psychotic thoughts: denies any abnormal thoughts. Judgment: fair at times Insight: fair at times Orientation: alert and oriented Recent and remote memory: intact Attention span and concentration: fair Language: expansive Fund of knowledge: average Mood: "I feel anxious". Affect: flat DIAGNOSES: Bipolar I Disorder, Recurrent, Manic Episode ASSESSMENT: Patient presents with anxiety but reporting no depression. Patient is agreeable to Haldol 10 mg oral, S Patient is also agreeable to Haldol Decanoate which will be ordered ion Tuesday. According to her last admission, this was the medication regimen that allowed her to be discharged because she quickly resolved and patient is hopeful to be discharged and she is motivated for stabilization. Patient is reporting auditory hallucinations but she is observed with less tangentiality . MANAGEMENT PLAN: Patient will be discharged when stable. TIME SPENT: 15 minutes. Vital Signs Vital Signs Date Time Temp Pulse Resp B/P (MAP) Pulse Ox O2 Delivery O2 Flow Rate FiO2 01/31/20 06:28 99.1 99 16 99/57 (71) 98 Room Air Current Medications Current Medications Medications (Trade) Dose Ordered Sig/Jackelyn Route PRN Reason Start Time Stop Time Status Last Admin Dose Admin Acetaminophen (Tylenol Tab) 650 mg Q6H PRN PO HEADACHE OR DISCOMFORT 12/11/19 19:00 12/28/19 10:13 DC 12/28/19 04:47 Acetaminophen (Tylenol Tab) 650 mg Q6HP PRN PO PAIN / FEVER 01/05/20 18:45 01/30/20 17:00 Al Hydrox/Mg Hydrox/Simethicone (Mylanta) 30 ml Q4H PRN PO HEARTBURN/INDIGESTION 12/11/19 19:00 01/22/20 14:13 Albuterol Sulfate (Proventil, Ventolin Hfa) 2 puff Q6H PRN INH SHORTNESS OF BREATH 12/11/19 18:00 01/17/20 20:15 Aripiprazole (AbiLIFY) 5 mg QHS PO 12/11/19 21:00 12/11/19 18:00 DC Aripiprazole (AbiLIFY) 5 mg QHS PO 12/12/19 21:00 12/15/19 12:54 DC 12/13/19 21:21 Benztropine Mesylate (Cogentin) 1 mg BID PRN PO EPS 01/29/20 13:45 01/31/20 08:06 Cariprazine (Vraylar) 3 mg QHS PO 12/15/19 21:00 12/25/19 09:11 DC 12/21/19 20:18 Cetylpyridinium Chloride (Cepacol) 1 karoline Q6H PRN PO SORE THROAT 12/12/19 12:00 01/14/20 09:06 DC 01/13/20 20:44 Clonazepam (KlonoPIN) 0.25 mg QAM PO 12/21/19 09:00 01/31/20 08:09 Clonazepam (KlonoPIN) 0.5 mg QAM PO 12/12/19 09:00 12/21/19 09:07 DC 12/21/19 08:21 Clonazepam (KlonoPIN) 0.75 mg QHS PO 12/25/19 21:00 01/30/20 20:05 Clonazepam (KlonoPIN) 1 mg QHS PO 12/11/19 21:00 12/25/19 09:11 DC 12/24/19 20:18 Cyclobenzaprine HCl (Flexeril) 5 mg BIDP PRN PO MUSCLE SPASMS 12/13/19 21:15 01/14/20 09:06 DC 01/13/20 22:35 Docusate Sodium (Colace) 100 mg BID PRN PO CONSTIPATION 12/11/19 19:00 01/14/20 09:06 DC 01/07/20 07:17 Haloperidol (Haldol) 5 mg BID PO 12/25/19 09:00 01/21/20 09:00 DC 01/14/20 23:16 Haloperidol (Haldol) 5 mg BID PO 01/22/20 21:00 01/30/20 10:57 DC Haloperidol (Haldol) 5 mg Q6HP PRN PO AGITATION 12/28/19 10:15 01/21/20 09:01 DC 01/12/20 15:21 Haloperidol (Haldol) 10 mg DAILY PO 01/31/20 09:00 01/31/20 08:10 Haloperidol (Haldol) 10 mg STAT STAT PO 01/30/20 10:35 01/30/20 10:38 DC 01/30/20 10:44 Home Med (Med Rec Complete!) ASDIRECTED XX 12/11/19 18:45 12/11/19 18:40 DC Ibuprofen (Advil) 600 mg Q8HP PRN PO PAIN 12/28/19 10:15 01/04/20 10:46 DC 01/04/20 06:43 Lidocaine (Lidoderm Patch) 1 patch DAILY PRN TD LOWER BACK PAIN 12/12/19 09:00 01/30/20 13:04 Lorazepam (Ativan) 1 mg BID PRN PO ANXIETY/AGITATION 01/23/20 16:45 01/31/20 09:41 Lorazepam (Ativan) 1 mg BIDP PRN PO ANXIETY/AGITATION 12/16/19 13:45 12/23/19 13:44 DC 12/23/19 04:49 Lorazepam (Ativan) 1 mg BIDP PRN PO ANXIETY/AGITATION 12/23/19 14:15 12/30/19 14:14 DC 12/29/19 21:02 Lorazepam (Ativan) 1 mg STAT STAT PO 01/23/20 16:36 01/23/20 16:37 DC 01/23/20 17:06 Lorazepam (Ativan) 2 mg STAT STAT PO 12/25/19 11:20 12/25/19 11:22 DC 12/25/19 11:25 Magnesium Hydroxide (Milk Of Magnesia) 30 ml DAILYPRN PRN PO CONSTIPATION 12/11/19 19:00 01/02/20 13:18 Menthol/Methyl Salicylate (Bengay Cream) APPLY TO BILATERAL KNEES ... Q8H PRN TOP KNEE PAIN 12/11/19 19:00 01/14/20 09:06 DC 01/13/20 20:44 Miscellaneous (Unresolved Clarification Entry) SEE LABEL COMMENTS DAILY XX 01/06/20 09:00 01/06/20 09:42 DC Miscellaneous (Unresolved Clarification Entry) SEE LABEL COMMENTS DAILY XX 01/01/20 09:00 01/01/20 11:03 DC Nicotine (Nicoderm Cq 14mg) 1 patch DAILY TD 01/21/20 09:00 01/31/20 08:07 Nicotine (Nicoderm Cq 21mg) 1 patch DAILY TD 12/12/19 09:00 01/14/20 09:06 DC 01/13/20 08:19 Non-Formulary Medication ( See Comment Field Below ) REMOVE LIDODERM PATCH DAILY@21 XX 12/11/19 21:00 01/30/20 20:06 Olanzapine (ZyPREXA ZYDIS) 5 mg Q4HP PRN PO AGITATION 12/14/19 21:15 12/28/19 10:13 DC 12/26/19 08:27 Olanzapine (ZyPREXA ZYDIS) 5 mg QHS PO 12/11/19 21:00 12/12/19 11:49 DC 12/11/19 22:22 Ondansetron HCl (Zofran Odt) 4 mg Q8H PRN PO NAUSEA 12/11/19 19:00 01/14/20 09:06 DC 01/13/20 10:49 Paliperidone Palmitate (Invega Sustenna) 234 mg Q30D IM 12/22/19 09:00 12/25/19 09:11 DC 12/22/19 08:23 Phenyleph/Shark Oil/Min Oil/Petrol (Preparation H Ointment) BID PRN TOP hemorroids 01/02/20 10:30 01/14/20 09:06 DC 01/12/20 15:23 Polyethylene Glycol (Miralax) 1 pkt DAILY PRN PO CONSTIPATION 12/11/19 19:00 01/30/20 16:59 Risperidone (RisperDAL) 1 mg QHS PO 12/20/19 21:00 12/25/19 09:11 DC 12/20/19 20:07 Risperidone (RisperDAL) 3 mg DAILY PO 01/28/20 09:00 01/30/20 10:38 DC 01/29/20 09:16 Risperidone (RisperDAL) 3 mg QHS PO 01/25/20 21:00 01/28/20 09:04 DC Risperidone (RisperDAL) 3 mg QHS PO 01/28/20 21:00 01/28/20 15:02 DC Sucralfate (Carafate Suspension) 1 gm BID PO 12/15/19 21:00 01/31/20 08:07 Sucralfate (Carafate) 1 gm BID PO 12/11/19 21:00 12/15/19 12:59 DC 12/15/19 08:46 Topiramate (TopAMAX) 100 mg BID PO 01/17/20 09:00 01/31/20 08:07 Allergies Coded Allergies: Penicillins (Unverified Allergy, Unknown, 12/14/19) diethylene glycol (Unverified Allergy, Unknown, 12/14/19) ALSO CALLED CARBITOL divalproex sodium (Unverified Allergy, Unknown, Unverified reaction. It is SUSPECT, 12/14/19) fluphenazine (Unverified Allergy, Unknown, UNVERIFIED REACTION. IT IS SUSPECT, 12/14/19) lithium (Unverified Allergy, Unknown, UNVERIFIED REACTION. IT IS SUSPECT., 12/14/19) meperidine (Unverified Allergy, Unknown, 12/14/19) metoclopramide (Unverified Allergy, Unknown, 12/14/19) olanzapine (Unverified Allergy, Unknown, 12/14/19) PT CANNOT VERBALIZE ACTUAL REACTION TO MEDICATION, HAS TAKEN PREVIOUS DOSES ON UNIT WITHOUT INCIDENT ranitidine (Unverified Allergy, Unknown, 12/14/19) risperidone (Unverified Allergy, Unknown, Unverified reaction. It is SUSPECT., 12/14/19) sertraline (Unverified Allergy, Unknown, Unverified reaction. It is SUSPECT, 12/14/19) acetaminophen (Verified Adverse Reaction, Unknown, PT HX HEP B, HEP C, 12/11/19) SANDI MORAN NP Jan 31, 2020 13:13
[2020-01-31] MEDS: ACETAMINOPHEN TAB 650MG DOSE (2X325MG) PO PRN (14:53)
[2020-01-31] MEDS: ALBUTEROL 90 MCG/ACT 8GM HFA INHALER INH PRN (15:22)
[2020-01-31] MEDS: MIRALAX *UNIT DOSE* 17GM PACKET PO PRN (17:16)
[2020-02-01] MEDS: LORazepam 1 MG TAB PO PRN ×2 (00:37→11:58)
[2020-02-01] MEDS: ACETAMINOPHEN TAB 650MG DOSE (2X325MG) PO PRN ×3 (00:39→20:24)
[2020-02-01] MEDS: SUCRALFATE SUSP 1GM/10ML UD PO SCH ×2 (08:52→20:21)
[2020-02-01] MEDS: BENZTROPINE 1 MG TAB PO PRN (08:53)
[2020-02-01] MEDS: TOPIRAMATE (TopAMAX) 100 MG TAB PO SCH ×2 (08:53→20:21)
[2020-02-01] MEDS: NICOTINE 14 MG/24 HR TRANSDERMAL TD SCH (08:54)
[2020-02-01] MEDS: clonazePAM 0.5 MG TAB PO SCH (08:54)
[2020-02-01] MEDS: MAALOX 30 ML SUSP *UDC PO PRN (10:47)
--- NOTE | 2020-02-01 15:25 | MHIPNPDOC ---
[facility] Progress Note Progress Note DATE OF SERVICE: 02/01/20 HISTORY: Patient is a 49 year old Single, Disabled, Undomiciled, Female. She was a 9.41 to [facility] for manic, bizarre and delusional behaviors in the community. VITAL SIGNS: See below. NEW TEST RESULTS: see results CURRENT MEDICATIONS: See below. MENTAL STATUS EXAMINATION: Patient is a 49-year old Single, Disabled, Undomiciled, female, who is admitted to [facility] for manic, bizarre and delusional behaviors in the community. She is currently admitted on a 2 PC legal status. On 01/26/20, patient had treatment over objection hearing. Court ruled in favor of the hospital. At this time, we are awaiting medication ruling. While she has been admitted, patient has continued to be hypomanic, bizarre, religiously preoccupied and preoccupied with rock stars. In today's interview, she has fair attention to hygiene and grooming. Not observed with tardive dyskinesia. She reports that she is tolerating oral Haldol with minimal complaints (states mild auditory hallucinations) eye contact is good Speech: fast, some racing speech, normal tone and volume Language skills are good Thought processes including: reality based, linear. Thought content: denies kevin, observed with mild depression. Abstract reasoning, and computation: fair. Description of associations: . Description of abnormal or psychotic thoughts: denies any abnormal thoughts. Judgment: fair at times Insight: fair at times Orientation: alert and oriented Recent and remote memory: intact Attention span and concentration: fair Language: expansive Fund of knowledge: average Mood: "I feel a little manicky but I am ok". Affect: flat DIAGNOSES: Bipolar I Disorder, Recurrent, Manic Episode ASSESSMENT: Patient presents with anxiety but reporting no depression. Patient is agreeable to Haldol 10 mg oral, Patient agreeable to Haldol Decanoate ordered tomorrow. Patient is reporting feeling mildly manic, but she is not observed with manic behaviors, also states she has auditory hallucinations but she is not responding to internal stimuli. She is still mildly disorganized and scattered. She is not observed manic, paranoia, delusional, bizarre or suicidal/homicidal. . MANAGEMENT PLAN: Patient will be discharged next week. TIME SPENT: 15 minutes. Vital Signs Vital Signs Date Time Temp Pulse Resp B/P (MAP) Pulse Ox O2 Delivery O2 Flow Rate FiO2 01/31/20 06:28 99.1 99 16 99/57 (71) 98 Room Air Current Medications Current Medications Medications (Trade) Dose Ordered Sig/Jackelyn Route PRN Reason Start Time Stop Time Status Last Admin Dose Admin Acetaminophen (Tylenol Tab) 650 mg Q6H PRN PO HEADACHE OR DISCOMFORT 12/11/19 19:00 12/28/19 10:13 DC 12/28/19 04:47 Acetaminophen (Tylenol Tab) 650 mg Q6HP PRN PO PAIN / FEVER 01/05/20 18:45 02/01/20 12:01 Al Hydrox/Mg Hydrox/Simethicone (Mylanta) 30 ml Q4H PRN PO HEARTBURN/INDIGESTION 12/11/19 19:00 02/01/20 10:47 Albuterol Sulfate (Proventil, Ventolin Hfa) 2 puff Q6H PRN INH SHORTNESS OF BREATH 12/11/19 18:00 01/31/20 15:22 Aripiprazole (AbiLIFY) 5 mg QHS PO 12/11/19 21:00 12/11/19 18:00 DC Aripiprazole (AbiLIFY) 5 mg QHS PO 12/12/19 21:00 12/15/19 12:54 DC 12/13/19 21:21 Benztropine Mesylate (Cogentin) 1 mg BID PRN PO EPS 01/29/20 13:45 02/01/20 08:53 Cariprazine (Vraylar) 3 mg QHS PO 12/15/19 21:00 12/25/19 09:11 DC 12/21/19 20:18 Cetylpyridinium Chloride (Cepacol) 1 karoline Q6H PRN PO SORE THROAT 12/12/19 12:00 01/14/20 09:06 DC 01/13/20 20:44 Clonazepam (KlonoPIN) 0.25 mg QAM PO 12/21/19 09:00 02/01/20 08:54 Clonazepam (KlonoPIN) 0.5 mg QAM PO 12/12/19 09:00 12/21/19 09:07 DC 12/21/19 08:21 Clonazepam (KlonoPIN) 0.75 mg QHS PO 12/25/19 21:00 01/31/20 20:14 Clonazepam (KlonoPIN) 1 mg QHS PO 12/11/19 21:00 12/25/19 09:11 DC 12/24/19 20:18 Cyclobenzaprine HCl (Flexeril) 5 mg BIDP PRN PO MUSCLE SPASMS 12/13/19 21:15 01/14/20 09:06 DC 01/13/20 22:35 Docusate Sodium (Colace) 100 mg BID PRN PO CONSTIPATION 12/11/19 19:00 01/14/20 09:06 DC 01/07/20 07:17 Haloperidol (Haldol) 5 mg BID PO 12/25/19 09:00 01/21/20 09:00 DC 01/14/20 23:16 Haloperidol (Haldol) 5 mg BID PO 01/22/20 21:00 01/30/20 10:57 DC Haloperidol (Haldol) 5 mg Q6HP PRN PO AGITATION 12/28/19 10:15 01/21/20 09:01 DC 01/12/20 15:21 Haloperidol (Haldol) 10 mg DAILY PO 01/31/20 09:00 02/01/20 08:52 Haloperidol (Haldol) 10 mg STAT STAT PO 01/30/20 10:35 01/30/20 10:38 DC 01/30/20 10:44 Home Med (Med Rec Complete!) ASDIRECTED XX 12/11/19 18:45 12/11/19 18:40 DC Ibuprofen (Advil) 600 mg Q8HP PRN PO PAIN 12/28/19 10:15 01/04/20 10:46 DC 01/04/20 06:43 Lidocaine (Lidoderm Patch) 1 patch DAILY PRN TD LOWER BACK PAIN 12/12/19 09:00 01/30/20 13:04 Lorazepam (Ativan) 1 mg BID PRN PO ANXIETY/AGITATION 01/23/20 16:45 02/01/20 11:58 Lorazepam (Ativan) 1 mg BIDP PRN PO ANXIETY/AGITATION 12/16/19 13:45 12/23/19 13:44 DC 12/23/19 04:49 Lorazepam (Ativan) 1 mg BIDP PRN PO ANXIETY/AGITATION 12/23/19 14:15 12/30/19 14:14 DC 12/29/19 21:02 Lorazepam (Ativan) 1 mg STAT STAT PO 01/23/20 16:36 01/23/20 16:37 DC 01/23/20 17:06 Lorazepam (Ativan) 2 mg STAT STAT PO 12/25/19 11:20 12/25/19 11:22 DC 12/25/19 11:25 Magnesium Hydroxide (Milk Of Magnesia) 30 ml DAILYPRN PRN PO CONSTIPATION 12/11/19 19:00 01/02/20 13:18 Menthol/Methyl Salicylate (Bengay Cream) APPLY TO BILATERAL KNEES ... Q8H PRN TOP KNEE PAIN 12/11/19 19:00 01/14/20 09:06 DC 01/13/20 20:44 Miscellaneous (Unresolved Clarification Entry) SEE LABEL COMMENTS DAILY XX 01/06/20 09:00 01/06/20 09:42 DC Miscellaneous (Unresolved Clarification Entry) SEE LABEL COMMENTS DAILY XX 01/01/20 09:00 01/01/20 11:03 DC Nicotine (Nicoderm Cq 14mg) 1 patch DAILY TD 01/21/20 09:00 02/01/20 08:54 Nicotine (Nicoderm Cq 21mg) 1 patch DAILY TD 12/12/19 09:00 01/14/20 09:06 DC 01/13/20 08:19 Non-Formulary Medication ( See Comment Field Below ) REMOVE LIDODERM PATCH DAILY@21 XX 12/11/19 21:00 01/31/20 20:26 Olanzapine (ZyPREXA ZYDIS) 5 mg Q4HP PRN PO AGITATION 12/14/19 21:15 12/28/19 10:13 DC 12/26/19 08:27 Olanzapine (ZyPREXA ZYDIS) 5 mg QHS PO 12/11/19 21:00 12/12/19 11:49 DC 12/11/19 22:22 Ondansetron HCl (Zofran Odt) 4 mg Q8H PRN PO NAUSEA 12/11/19 19:00 01/14/20 09:06 DC 01/13/20 10:49 Paliperidone Palmitate (Invega Sustenna) 234 mg Q30D IM 12/22/19 09:00 12/25/19 09:11 DC 12/22/19 08:23 Phenyleph/Shark Oil/Min Oil/Petrol (Preparation H Ointment) BID PRN TOP hemorroids 01/02/20 10:30 01/14/20 09:06 DC 01/12/20 15:23 Polyethylene Glycol (Miralax) 1 pkt DAILY PRN PO CONSTIPATION 12/11/19 19:00 01/31/20 17:16 Risperidone (RisperDAL) 1 mg QHS PO 12/20/19 21:00 12/25/19 09:11 DC 12/20/19 20:07 Risperidone (RisperDAL) 3 mg DAILY PO 01/28/20 09:00 01/30/20 10:38 DC 01/29/20 09:16 Risperidone (RisperDAL) 3 mg QHS PO 01/25/20 21:00 01/28/20 09:04 DC Risperidone (RisperDAL) 3 mg QHS PO 01/28/20 21:00 01/28/20 15:02 DC Sucralfate (Carafate Suspension) 1 gm BID PO 12/15/19 21:00 02/01/20 08:52 Sucralfate (Carafate) 1 gm BID PO 12/11/19 21:00 12/15/19 12:59 DC 12/15/19 08:46 Topiramate (TopAMAX) 100 mg BID PO 01/17/20 09:00 02/01/20 08:53 Allergies Coded Allergies: Penicillins (Unverified Allergy, Unknown, 12/14/19) diethylene glycol (Unverified Allergy, Unknown, 12/14/19) ALSO CALLED CARBITOL divalproex sodium (Unverified Allergy, Unknown, Unverified reaction. It is SUSPECT, 12/14/19) fluphenazine (Unverified Allergy, Unknown, UNVERIFIED REACTION. IT IS SUSPECT, 12/14/19) lithium (Unverified Allergy, Unknown, UNVERIFIED REACTION. IT IS SUSPECT., 12/14/19) meperidine (Unverified Allergy, Unknown, 12/14/19) metoclopramide (Unverified Allergy, Unknown, 12/14/19) olanzapine (Unverified Allergy, Unknown, 8/21/20) PT CANNOT VERBALIZE ACTUAL REACTION TO MEDICATION, HAS TAKEN PREVIOUS DOSES ON UNIT WITHOUT INCIDENT ranitidine (Unverified Allergy, Unknown, 12/14/19) risperidone (Unverified Allergy, Unknown, Unverified reaction. It is SUSPECT., 12/14/19) sertraline (Unverified Allergy, Unknown, Unverified reaction. It is SUSPECT, 12/14/19) acetaminophen (Verified Adverse Reaction, Unknown, PT HX HEP B, HEP C, 12/11/19) SANDI MORAN NP Feb 01, 2020 15:25
[2020-02-01] MEDS ORDERED: LORazepam 1 MG TAB PO ONE (17:30)
[2020-02-01 17:57] VITALS: BP 133/88
[2020-02-02] MEDS: NICOTINE 14 MG/24 HR TRANSDERMAL TD SCH (08:30)
[2020-02-02] MEDS: SUCRALFATE SUSP 1GM/10ML UD PO SCH ×2 (08:31→20:16)
[2020-02-02] MEDS: TOPIRAMATE (TopAMAX) 100 MG TAB PO SCH ×2 (08:32→20:16)
[2020-02-02] MEDS: LORazepam 1 MG TAB PO PRN ×3 (08:32→23:40)
[2020-02-02] MEDS: BENZTROPINE 1 MG TAB PO PRN ×2 (08:32→23:40)
[2020-02-02] MEDS: HALOPERIDOL DECANOATE 100 MG/ML VIAL (J1631) IM ONE (09:00)
[2020-02-02] MEDS ORDERED: HALOPERIDOL DECANOATE 100 MG/ML VIAL (J1631) IM ONE (09:15)
--- NOTE | 2020-02-02 09:29 | MHHPE ---
DATE: 12/10/2019 HISTORY OF PRESENT ILLNESS: Patient is a 49-year-old , disabled, female who was brought in a 945 by [facility] for manic behaviors, suicidal and homicidal ideation. She presents as manic, agitated, rambling with loud, pressured speech, making bizarre statements. Patient states that she does not know why she is here. She states that she left her ex- and it is difficult to follow her train of thought because of her rambling speech, very rapid, pressured and she is very labile and her thought process is very disorganized. She speaks of an emotional support animal as well as possibly this dog having been drowned in the river and then switches to a conversation about the Police bringing her here and she has bruises all over her body, she wants to be seen by a Hospitalist. It is difficult to engage her in a linear train of thought due to her kevin. SUICIDE AND HOMICIDE HISTORY: She denies suicidal or homicidal ideation, denies history of homicidal ideation, gestures or attempts. She reports no history of violence. SUBSTANCE ABUSE HISTORY: She reports no history of alcohol. She is positive for marijuana and states she uses occasionally. States also that she has used cocaine 2 times, history of methamphetamine use, states she does not like it. Smokes to a 1/2 pack to 1 pack a day and minimal use of caffeine. Patient does admit to polysubstance abuse and while she reported that she does not have a history of violence she did in her rambling report that she had a history of violence when she was using methamphetamine. PAST PSYCHIATRIC HISTORY: This is her fourth psychiatric admission reporting that she sees Jeni at [facility] in [place], [place], currently diagnosed bipolar. Her last psychiatric admission was in March,. She states that she gets Klonopin, Prozac 20 mg, medical marijuana and Carafate twice daily. FAMILY HISTORY OF PSYCHIATRIC ILLNESS AND ADDICTIONS: Patient reports that her mother is bipolar, history of paternal grandmother with alcohol history. No history of completed suicide. FAMILY MEDICAL HISTORY: She states her mother has irritable bowel syndrome. SOCIAL HISTORY: Attempted to get Social History from patient and she is unable to give me a linear history of her Social History. Patient was very loud, pressured demanding Klonopin. PAST MEDICAL HISTORY: She does report; however, irritable bowel syndrome. According to her medical history hiatal hernia and gastroesophageal reflux disease. PAST SURGICAL HISTORY: Tubal ligation and a D&C. ALLERGIES: She reports lots. According to the patient she is allergic to a number of psychotropic medications in that she cannot take most of all: * LITHIUM. * THORAZINE. * HALDOL. * ZYPREXA. States she is allergic to all of these and cannot take anything. MEDICATIONS: Patient is only willing to take: * Albuterol. * Prozac. * Klonopin. MENTAL STATUS EXAM: Patient is a 49-year-old , disabled, female. She presents to the inpatient Mental Health Unit as manic with loud, pressured speech. Her grooming and hygiene is fair. Speech is pressured and loud. Eye contact is darting. Her mood is labile. Her affect is congruent with that. Thought process is disorganized and scattered. She denied auditory and visual hallucinations. She does present somewhat paranoid and ruminative, somatic complaining about her bruises and wants to be seen and have an MRI of her leg which seemed to be working as she has been walking around the unit without difficulty. At this time her ability to perform any calculations is difficult due to her scattered thinking. Her cognitive functioning is congruent with her education. Her insight and judgment is poor. DIAGNOSIS: Bipolar disorder. TREATMENT PLAN: * Admit to my service on a 939 legal status. * Restrict to unit. * Vital signs per unit policy. * Patient to participate in individual, group and milieu therapy when she is able. * Patient to also participate in medication management and discharge planning. * We will discharge patient when she is stable and no longer a danger to self and others. Treatment plan is to stabilize. Patient has a history of being admitted to the [facility] for further hospitalization. I do believe that the patient may need treatment over objection as she is reporting that she is allergic to most medications and patient will need to be compliant with medications. If she does not stabilize we will continue with further hospitalization in [facility]. NAUN
[2020-02-02] MEDS: ALBUTEROL 90 MCG/ACT 8GM HFA INHALER INH PRN ×2 (10:51→18:21)
[2020-02-02] MEDS: LIDOCAINE 5% (LIDODERM) PATCH TD PRN (10:53)
[2020-02-02] MEDS: ACETAMINOPHEN TAB 650MG DOSE (2X325MG) PO PRN ×2 (12:37→20:55)
[2020-02-02 18:14] VITALS: BP 141/75
[2020-02-03 07:09] VITALS: BP 110/56
[2020-02-03] MEDS: SUCRALFATE SUSP 1GM/10ML UD PO SCH ×2 (08:12→20:17)
[2020-02-03] MEDS: LORazepam 1 MG TAB PO PRN ×2 (08:13→17:06)
[2020-02-03] MEDS: BENZTROPINE 1 MG TAB PO PRN ×2 (08:13→21:07)
[2020-02-03] MEDS: NICOTINE 14 MG/24 HR TRANSDERMAL TD SCH (08:13)
[2020-02-03] MEDS: TOPIRAMATE (TopAMAX) 100 MG TAB PO SCH ×2 (08:13→20:18)
[2020-02-03] MEDS: ACETAMINOPHEN TAB 650MG DOSE (2X325MG) PO PRN ×2 (12:17→23:04)
[2020-02-03] MEDS: HALOPERIDOL DECANOATE 100 MG/ML VIAL (J1631) IM ONE (12:19)
[2020-02-03] MEDS ORDERED: HALOPERIDOL DECANOATE 100 MG/ML VIAL (J1631) IM ONE (13:00)
[2020-02-03] MEDS: ALBUTEROL 90 MCG/ACT 8GM HFA INHALER INH PRN (14:45)
[2020-02-03 18:21] VITALS: BP 145/95
[2020-02-04 06:43] VITALS: BP 136/67
[2020-02-04] MEDS: ACETAMINOPHEN TAB 650MG DOSE (2X325MG) PO PRN ×2 (06:55→16:22)
[2020-02-04] MEDS: BENZTROPINE 1 MG TAB PO PRN (08:13)
[2020-02-04] MEDS: TOPIRAMATE (TopAMAX) 100 MG TAB PO SCH ×2 (08:13→21:05)
[2020-02-04] MEDS: NICOTINE 14 MG/24 HR TRANSDERMAL TD SCH (08:13)
[2020-02-04] MEDS: LORazepam 1 MG TAB PO PRN ×2 (08:13→18:18)
[2020-02-04] MEDS: SUCRALFATE SUSP 1GM/10ML UD PO SCH ×2 (08:13→21:04)
[2020-02-04] MEDS: LIDOCAINE 5% (LIDODERM) PATCH TD PRN (10:33)
[2020-02-04 16:09] VITALS: BP 132/84
--- NOTE | 2020-02-04 16:17 | MHIPNPDOC ---
[facility] Progress Note Progress Note DATE OF SERVICE: 02/04/20 HISTORY: Patient is a 49 year old Single, Disabled, Undomiciled, Female. She was a 9.41 to [facility] for manic, bizarre and delusional behaviors in the community. VITAL SIGNS: See below. NEW TEST RESULTS: see results CURRENT MEDICATIONS: See below. MENTAL STATUS EXAMINATION: Patient is a 49-year old Single, Disabled, Undomiciled, female, who is admitted to [facility] for manic, bizarre and delusional behaviors in the community. She is currently admitted on a 2 PC legal status. On 01/26/20, patient had treatment over objection hearing. Court ruled in favor of the hospital. At this time, we are awaiting medication ruling. While she has been admitted, patient has continued to be hypomanic, bizarre, religiously preoccupied and preoccupied with rock stars. In today's interview, she has fair attention to hygiene and grooming. Not observed with tardive dyskinesia. She reports that she is tolerating Haldol with minimal complaints (states mild auditory hallucinations) eye contact is good. Speech: normal rate, tone and volume Language skills are good Thought processes including: reality based, linear. Thought content: denies depression, anxiety, kevin or psychosis. Abstract reasoning, and computation: fair. Description of associations: . Description of abnormal or psychotic thoughts: denies any abnormal thoughts. Judgment: fair to good at times Insight: fair to good at times Orientation: alert and oriented Recent and remote memory: intact Attention span and concentration: fair Language: expansive Fund of knowledge: average Mood: "I feel a little manicky but I am ok". Affect: flat DIAGNOSES: Bipolar I Disorder, Recurrent, Manic Episode ASSESSMENT: Patient presents calm and cooperative, no depression, no anxiety. no manic behaviors. Patient was agreeable Haldol Decanoate which she had yesterday. She is not observed with any disorganized or scattered thinking. She does reports that Haldol makes her have voices, reduces her appetite and speeds up her speech, and causes acne She is requesting Gatorade. She is not observed to be acting out with these voices and she appears to be fairly stable. MANAGEMENT PLAN: Discharge tomorrow TIME SPENT: 20 minutes. Vital Signs Vital Signs Date Time Temp Pulse Resp B/P (MAP) Pulse Ox O2 Delivery O2 Flow Rate FiO2 02/04/20 06:43 98.8 90 18 136/67 (90) 99 Room Air Current Medications Current Medications Medications (Trade) Dose Ordered Sig/Jackelyn Route PRN Reason Start Time Stop Time Status Last Admin Dose Admin Acetaminophen (Tylenol Tab) 650 mg Q6H PRN PO HEADACHE OR DISCOMFORT 12/11/19 19:00 12/28/19 10:13 DC 12/28/19 04:47 Acetaminophen (Tylenol Tab) 650 mg Q6HP PRN PO PAIN / FEVER 01/05/20 18:45 02/04/20 06:55 Al Hydrox/Mg Hydrox/Simethicone (Mylanta) 30 ml Q4H PRN PO HEARTBURN/INDIGESTION 12/11/19 19:00 02/01/20 10:47 Albuterol Sulfate (Proventil, Ventolin Hfa) 2 puff Q6H PRN INH SHORTNESS OF BREATH 12/11/19 18:00 02/03/20 14:45 Aripiprazole (AbiLIFY) 5 mg QHS PO 12/11/19 21:00 12/11/19 18:00 DC Aripiprazole (AbiLIFY) 5 mg QHS PO 12/12/19 21:00 12/15/19 12:54 DC 12/13/19 21:21 Benztropine Mesylate (Cogentin) 1 mg BID PRN PO EPS 01/29/20 13:45 02/04/20 08:13 Cariprazine (Vraylar) 3 mg QHS PO 12/15/19 21:00 12/25/19 09:11 DC 12/21/19 20:18 Cetylpyridinium Chloride (Cepacol) 1 karoline Q6H PRN PO SORE THROAT 12/12/19 12:00 01/14/20 09:06 DC 01/13/20 20:44 Clonazepam (KlonoPIN) 0.25 mg QAM PO 12/21/19 09:00 02/01/20 18:08 DC 02/01/20 08:54 Clonazepam (KlonoPIN) 0.5 mg QAM PO 12/12/19 09:00 12/21/19 09:07 DC 12/21/19 08:21 Clonazepam (KlonoPIN) 0.75 mg QHS PO 12/25/19 21:00 02/01/20 18:08 DC 01/31/20 20:14 Clonazepam (KlonoPIN) 1 mg QHS PO 12/11/19 21:00 12/25/19 09:11 DC 12/24/19 20:18 Cyclobenzaprine HCl (Flexeril) 5 mg BIDP PRN PO MUSCLE SPASMS 12/13/19 21:15 01/14/20 09:06 DC 01/13/20 22:35 Docusate Sodium (Colace) 100 mg BID PRN PO CONSTIPATION 12/11/19 19:00 01/14/20 09:06 DC 01/07/20 07:17 Haloperidol (Haldol) 5 mg BID PO 12/25/19 09:00 01/21/20 09:00 DC 01/14/20 23:16 Haloperidol (Haldol) 5 mg BID PO 01/22/20 21:00 01/30/20 10:57 DC Haloperidol (Haldol) 5 mg Q6HP PRN PO AGITATION 12/28/19 10:15 01/21/20 09:01 DC 01/12/20 15:21 Haloperidol (Haldol) 10 mg DAILY PO 01/31/20 09:00 02/03/20 08:13 Haloperidol (Haldol) 10 mg STAT STAT PO 01/30/20 10:35 01/30/20 10:38 DC 01/30/20 10:44 Home Med (Med Rec Complete!) ASDIRECTED XX 12/11/19 18:45 12/11/19 18:40 DC Ibuprofen (Advil) 600 mg Q8HP PRN PO PAIN 12/28/19 10:15 01/04/20 10:46 DC 01/04/20 06:43 Lidocaine (Lidoderm Patch) 1 patch DAILY PRN TD LOWER BACK PAIN 12/12/19 09:00 02/04/20 10:33 Lorazepam (Ativan) 1 mg BID PRN PO ANXIETY/AGITATION 01/23/20 16:45 02/04/20 08:13 Lorazepam (Ativan) 1 mg BIDP PRN PO ANXIETY/AGITATION 12/16/19 13:45 12/23/19 13:44 DC 12/23/19 04:49 Lorazepam (Ativan) 1 mg BIDP PRN PO ANXIETY/AGITATION 12/23/19 14:15 12/30/19 14:14 DC 12/29/19 21:02 Lorazepam (Ativan) 1 mg STAT STAT PO 01/23/20 16:36 01/23/20 16:37 DC 01/23/20 17:06 Lorazepam (Ativan) 2 mg STAT STAT PO 12/25/19 11:20 12/25/19 11:22 DC 12/25/19 11:25 Magnesium Hydroxide (Milk Of Magnesia) 30 ml DAILYPRN PRN PO CONSTIPATION 12/11/19 19:00 01/02/20 13:18 Menthol/Methyl Salicylate (Bengay Cream) APPLY TO BILATERAL KNEES ... Q8H PRN TOP KNEE PAIN 12/11/19 19:00 01/14/20 09:06 DC 01/13/20 20:44 Miscellaneous (Unresolved Clarification Entry) SEE LABEL COMMENTS DAILY XX 01/06/20 09:00 01/06/20 09:42 DC Miscellaneous (Unresolved Clarification Entry) SEE LABEL COMMENTS DAILY XX 01/01/20 09:00 01/01/20 11:03 DC Nicotine (Nicoderm Cq 14mg) 1 patch DAILY TD 01/21/20 09:00 02/04/20 08:13 Nicotine (Nicoderm Cq 21mg) 1 patch DAILY TD 12/12/19 09:00 01/14/20 09:06 DC 01/13/20 08:19 Non-Formulary Medication ( See Comment Field Below ) REMOVE LIDODERM PATCH DAILY@21 XX 12/11/19 21:00 02/03/20 20:19 Olanzapine (ZyPREXA ZYDIS) 5 mg Q4HP PRN PO AGITATION 12/14/19 21:15 12/28/19 10:13 DC 12/26/19 08:27 Olanzapine (ZyPREXA ZYDIS) 5 mg QHS PO 12/11/19 21:00 12/12/19 11:49 DC 12/11/19 22:22 Ondansetron HCl (Zofran Odt) 4 mg Q8H PRN PO NAUSEA 12/11/19 19:00 01/14/20 09:06 DC 01/13/20 10:49 Paliperidone Palmitate (Invega Sustenna) 234 mg Q30D IM 12/22/19 09:00 12/25/19 09:11 DC 12/22/19 08:23 Phenyleph/Shark Oil/Min Oil/Petrol (Preparation H Ointment) BID PRN TOP hemorroids 01/02/20 10:30 01/14/20 09:06 DC 01/12/20 15:23 Polyethylene Glycol (Miralax) 1 pkt DAILY PRN PO CONSTIPATION 12/11/19 19:00 01/31/20 17:16 Risperidone (RisperDAL) 1 mg QHS PO 12/20/19 21:00 12/25/19 09:11 DC 12/20/19 20:07 Risperidone (RisperDAL) 3 mg DAILY PO 01/28/20 09:00 01/30/20 10:38 DC 01/29/20 09:16 Risperidone (RisperDAL) 3 mg QHS PO 01/25/20 21:00 01/28/20 09:04 DC Risperidone (RisperDAL) 3 mg QHS PO 01/28/20 21:00 01/28/20 15:02 DC Sucralfate (Carafate Suspension) 1 gm BID PO 12/15/19 21:00 02/04/20 08:13 Sucralfate (Carafate) 1 gm BID PO 12/11/19 21:00 12/15/19 12:59 DC 12/15/19 08:46 Topiramate (TopAMAX) 100 mg BID PO 01/17/20 09:00 02/04/20 08:13 Allergies Coded Allergies: Penicillins (Unverified Allergy, Unknown, 12/14/19) diethylene glycol (Unverified Allergy, Unknown, 12/14/19) ALSO CALLED CARBITOL divalproex sodium (Unverified Allergy, Unknown, Unverified reaction. It is SUSPECT, 12/14/19) fluphenazine (Unverified Allergy, Unknown, UNVERIFIED REACTION. IT IS SUSPECT, 12/14/19) lithium (Unverified Allergy, Unknown, UNVERIFIED REACTION. IT IS SUSPECT., 12/14/19) meperidine (Unverified Allergy, Unknown, 12/14/19) metoclopramide (Unverified Allergy, Unknown, 12/14/19) olanzapine (Unverified Allergy, Unknown, 12/14/19) PT CANNOT VERBALIZE ACTUAL REACTION TO MEDICATION, HAS TAKEN PREVIOUS DOSES ON UNIT WITHOUT INCIDENT ranitidine (Unverified Allergy, Unknown, 12/14/19) risperidone (Unverified Allergy, Unknown, Unverified reaction. It is SUSPECT., 12/14/19) sertraline (Unverified Allergy, Unknown, Unverified reaction. It is SUSPECT, 12/14/19) acetaminophen (Verified Adverse Reaction, Unknown, PT HX HEP B, HEP C, 12/11/19) SANDI MORAN NP Feb 04, 2020 11:53
[2020-02-04] MEDS: MAALOX 30 ML SUSP *UDC PO PRN (23:31)
[2020-02-05] MEDS: SUCRALFATE SUSP 1GM/10ML UD PO SCH (08:02)
[2020-02-05] MEDS: TOPIRAMATE (TopAMAX) 100 MG TAB PO SCH (08:02)
[2020-02-05] MEDS: NICOTINE 14 MG/24 HR TRANSDERMAL TD SCH (08:03)
[2020-02-05] MEDS: BENZTROPINE 1 MG TAB PO PRN (08:04)
[2020-02-05] MEDS: LORazepam 1 MG TAB PO PRN (08:04)
[2020-02-05] MEDS ORDERED: NICO14PA TD (09:35)
[2020-02-05] MEDS ORDERED: INVE234I IM (09:35)
[2020-02-05] MEDS ORDERED: VENTAER INH (09:35)
[2020-02-05] MEDS ORDERED: BENZ-52 PO (09:35)
[2020-02-05] MEDS ORDERED: TOPA100T12 PO (09:35)
--- NOTE | 2020-02-05 11:34 | MHDSPDOC ---
[facility] Discharge Summary Discharge Summary DATE OF ADMISSION: Dec 10, 2019 at 01:00 DATE OF DISCHARGE: February 05, 2020 at 1025 DISCHARGE DIAGNOSES: 1. Bipolar I disorder, recurrent, manic episode REASON FOR ADMISSION: Patient is a 49 year old Single, Disabled, Domiciled, Female. She was a 9.41 to [facility] for manic, bizarre and delusional behaviors in the community. This is day 57 for the patient. She is currently admitted on a 2 PC legal status. On 01/26/20, patient had treatment over objection hearing. Court ruled in favor of the hospital. CONSULTANTS INVOLVED: See Consultation reports by Medical Providers TREATMENT AND PROGRESS ON THE UNIT : Patient was admitted to [facility] on a 9.39 legal status initially and then converted to a 2 PC when she did not stabilize. Due to her continued non-compliance with medications, the hospital sought treatment over objection to start medications to stabilize the patient. HOSPITAL COURSE: Patient is a 49 year old Single, Disabled, Domiciled, Female. She was a 9.41 to [facility] for manic, bizarre and delusional behaviors in the community. This is day 57 for the patient. She is currently admitted on a [address] [facility]. On 01/26/20, patient had treatment over objection hearing. Court ruled in favor of the hospital. she has numerous psychiatric hospitalizations in [place], [place] (2); [facility]; [facility] (3); [facility]; [place], [place] and [place], [place] (4). She was a 9.41 to [facility] She initially presented to the [facility] as Labile, Manic and with poor insight and judgement. She had refused medications and requested numerous other medications for which she does not meet criteria. Throughout her hospitalization we had reviewed with patient need for compliance with current medication regimen. She stated that she not willing to take Vraylar it makes her have headaches. She was also unwilling to take Abilify which she reported gave her stomach aches. She was then unwilling to take Abilify Maintena and stated that she was allergic, although never having it. She has been unwilling to take Thorazine for agitation, stating again that she is allergic. She was also unwilling to take Zyprexa for agitation because she is allergic. She reports numerous medications that she is allergic to including [place] which she would benefit from. Many of her example of allergic reactions did not appear to be true allergic reactions. Earlier on she was to take Invega as this is the only medications she has not taken. Vraylar is the best option for the patient as she reports minimal side effects, but refused the bedtime dose. For many weeks patient presented as manic, loud, pressured speech, labile and manic. Her speech was Loud, hyperverbal, rapid and pressured, with flight of ideas. Her thought process was Disorganized, Scattered, Flight of Ideas and her thought content May be moderately delusional about allergies to medications, believing that all cause her allergic reactions. She was disorganized, ruminative, with scattered thinking for most of her hospitalization. She became more stable with Haldol and Haldol Decanote, although did have some slurring of her speech. She also complained that the Haldol caused acne. DISCHARGE ASSESSMENT: Patient has stabilized. She continues to have some eclectic and artistic behaviors which are collecting magazine pictures and posting them and coloring her hair. While these may be signs of continued disorganization and poor linear thinking. Patient was severely manic and delusional upon her admission and at this time, she is calm, cooperative. She had good cognitive functioning and was able to articulate her needs. She was seen by the manufacturing planner and this provider yesterday and we both felt comfortable with the patient's level of stability. Patient is a 49-year old Single, Disabled, Domiciled, female, who is admitted to [facility] for manic, bizarre and delusional behaviors in the community. She appears to be her stated age, and in today's interview, she has fair attention to hygiene and grooming. Not observed with tardive dyskinesia. She makes good eye contact. She is not observed with depression, anxiety. SI/HI, paranoia, obsession, psychosis, kevin, auditory or visual hallucinations. Speech: normal rate, tone and volume Language skills are good Thought processes including: reality based, linear. Thought content: denies depression, anxiety, kevin or psychosis. Abstract reasoning, and computation: fair. Description of associations: . Description of abnormal or psychotic thoughts: denies any abnormal thoughts. Judgment: fair to good at times Insight: fair to good at times Orientation: alert and oriented Recent and remote memory: intact Attention span and concentration: fair Language: expansive Fund of knowledge: average Mood: "I nervous but I am ok". Affect: flat MEDICATIONS ON DISCHARGE: See Medication Reconciliation. Patient was not willing to take Haldol Decanoate, reporting that Haldol "is like speed to me, it revs me up." While it did slow her psychomotor agitation, she did have fast speech in which she was almost slurring her words but she presented as less manic. Given that our discussion at the time of discharge was what she would be willing to take because she would not take Haldol Decanoate on the outside, she was willing to continue with Invega Sustenna. I called the pharmacy to determine when she would be able to have the Invega Sustenna (her last dose was 12/22/19 and last Haldol Decanoate 12/29/19). Patient will be due for Invega Sustenna 234 mg IM injection on 03/03/20 PLAN/FOLLOWUP ARRANGEMENTS: Patient is following up with [facility] The amount of time spent in the coordination of care for this patient was approximately 35 minutes. Vital Signs/I&Os Vital Signs Date Time Temp Pulse Resp B/P (MAP) Pulse Ox O2 Delivery O2 Flow Rate FiO2 02/04/20 16:09 98.9 100 18 132/84 (100) 02/04/20 06:43 99 Room Air Medications Scheduled Nicotine (Nicotine Patch) 14 Mg Patch.td24, 1 PATCH TD DAILY for Nicotine Withdrawal, #7 Paliperidone Palmitate (Invega Sustenna) 234 Mg/1.5 Ml Syringe, 234 MG IM QMONTH for antipsychotic, #1 Due 03/03/20 Sucralfate (Carafate) 1 Gm/10 Ml Oral.susp, 10 ML PO BIDWM for . , (Reported) Topiramate (Topamax) 100 Mg Tablet, 100 MG PO BID for Mood Stabilizer, #14 Scheduled PRN Albuterol Sulfate (Ventolin Hfa) 18 Gm Hfa.aer.ad, 2 PUFF INH Q6H PRN for SHORTNESS OF BREATH, #1 Benztropine Mesylate (Benztropine Mesylate) 1 Mg Tablet, 1 MG PO BID PRN for EPS , #14 Allergies Coded Allergies: Penicillins (Unverified Allergy, Unknown, 12/14/19) diethylene glycol (Unverified Allergy, Unknown, 12/14/19) ALSO CALLED CARBITOL divalproex sodium (Unverified Allergy, Unknown, Unverified reaction. It is SUSPECT, 12/14/19) fluphenazine (Unverified Allergy, Unknown, UNVERIFIED REACTION. IT IS SUSPECT, 12/14/19) lithium (Unverified Allergy, Unknown, UNVERIFIED REACTION. IT IS SUSPECT., 12/14/19) meperidine (Unverified Allergy, Unknown, 12/14/19) metoclopramide (Unverified Allergy, Unknown, 12/14/19) olanzapine (Unverified Allergy, Unknown, 12/14/19) PT CANNOT VERBALIZE ACTUAL REACTION TO MEDICATION, HAS TAKEN PREVIOUS DOSES ON UNIT WITHOUT INCIDENT ranitidine (Unverified Allergy, Unknown, 12/14/19) risperidone (Unverified Allergy, Unknown, Unverified reaction. It is SUSPECT., 12/14/19) sertraline (Unverified Allergy, Unknown, Unverified reaction. It is SUSPECT, 12/14/19) acetaminophen (Verified Adverse Reaction, Unknown, PT HX HEP B, HEP C, 12/11/19) SANDI MORAN NP Feb 05, 2020 10:35
[2020-02-24 10:41] LABS: AMPHETAMINES LEVEL URINE NEGATIVE (NEGATIVE); BARBITURATES URINE NEGATIVE (NEGATIVE); BENZODIAZEPINES URINE NEGATIVE (NEGATIVE); CANNABINOIDS URINE POSITIVE (NEGATIVE); COCAINE METABOLITE URINE POSITIVE (NEGATIVE); METHADONE URINE NEGATIVE (NEGATIVE); OPIATES URINE NEGATIVE (NEGATIVE); PHENCYCLIDINE URINE NEGATIVE (NEGATIVE)
[2020-02-24 10:41] LABS: ACETAMINOPHEN LEVEL < 2.0 UG/ML (10.0-30.0); ALBUMIN 4.2 GM/DL (3.2-5.2); ALT/SGPT 30 U/L (12-78); BILIRUBIN,DIRECT 0.3 MG/DL (0.0-0.2); BILIRUBIN,TOTAL 0.8 MG/DL (0.2-1.0); BLOOD UREA NITROGEN 10 MG/DL (7-18); CALCIUM LEVEL 9.1 MG/DL (8.5-10.1); CARBON DIOXIDE LEVEL 30 MEQ/L (21-32); CHLORIDE LEVEL 102 MEQ/L (98-107); CREATININE FOR GFR 0.85 MG/DL (0.55-1.30); ETHYL ALCOHOL (ETHANOL) < 0.003 % (0.000-0.010); GLOMERULAR FILTRATION RATE > 60.0 (>58); GLUCOSE, FASTING 88 MG/DL (70-100); POTASSIUM SERUM 3.9 MEQ/L (3.5-5.1); SALICYLATE LEVEL 4.7 MG/DL (5.0-30.0); SODIUM LEVEL 136 MEQ/L (136-145); THYROID STIMULATING HORMONE 0.915 uIU/ML (0.358-3.740); TOTAL PROTEIN 7.6 GM/DL (6.4-8.2)
[2020-02-24 10:44] LABS: HCG, SERUM QUALITATIVE NEGATIVE (NEGATIVE)
== END 2020-02-05 11:00 | disposition home or self-care (01) | DRG 885 ==
LOC: M ED 09:40 → M PSY 12-10 01:00
PROVIDERS: ADMIT Psychiatry & Neurology Psychiatry; ATTEND Psychiatry & Neurology Psychiatry
DX: F31.9 Bipolar disorder, unspecified (principal); K44.9 Diaphragmatic hernia without obstruction or gangrene; K21.9 Gastro-esophageal reflux disease without esophagitis; K58.9 Irritable bowel syndrome, unspecified; M79.89 Other specified soft tissue disorders; M25.571 Pain in right ankle and joints of right foot; R51.9 Headache, unspecified; F17.200 Nicotine dependence, unspecified, uncomplicated; Z91.14 Patient's other noncompliance with medication regimen; Z79.899 Other long term (current) drug therapy; Z81.8 Family history of other mental and behavioral disorders; M54.5 Low back pain

== ENCOUNTER 2022-10-28 21:57 | Inpatient (IN) | payer MEDICARE, MEDICAID ==
[~2022-10-28] VITALS: Ht 165.1 cm; Wt 57.0 kg
[~2022-10-28 21:57] MED LIST changes: -AKWASOL OU; +ARTIDRO2 OU; -BENZ-52 PO; +BENZ1TAB5 PO; +CLON1TAB17 PO; +FLUT50SP17 NARES; -FLUTISP NARES; +IBUP1TAB5 PO; -IBUP40TA PO; +INVE234I IM; +NICO14PA TD; +TOPA100T12 PO
[2022-10-29 00:03] LABS: HEMATOCRIT 34.3 % (36.0-47.0); HEMOGLOBIN 11.3 g/dl (12.0-15.5); MEAN CORPUSCULAR HEMOGLOBIN 29.8 pg (27.0-33.0); MEAN CORPUSCULAR HGB CONC 32.9 g/dl (32.0-36.5); MEAN CORPUSCULAR VOLUME 90.5 fl (80.0-96.0); PLATELET COUNT, AUTOMATED 313 10^3/uL (150-450); RED BLOOD COUNT 3.79 10^6/uL (4.00-5.40); WHITE BLOOD COUNT 9.8 10^3/uL (4.0-10.0)
[2022-10-29 00:21] LABS: AMPHETAMINES LEVEL URINE NEGATIVE (NEGATIVE); BARBITURATES URINE NEGATIVE (NEGATIVE); BENZODIAZEPINES URINE NEGATIVE (NEGATIVE); COCAINE METABOLITE URINE NEGATIVE (NEGATIVE); METHADONE URINE NEGATIVE (NEGATIVE); OPIATES URINE NEGATIVE (NEGATIVE); PHENCYCLIDINE URINE NEGATIVE (NEGATIVE)
[2022-10-29 00:25] LABS: CANNABINOIDS URINE POSITIVE (NEGATIVE)
[2022-10-29 00:35] LABS: ETHYL ALCOHOL (ETHANOL) < 0.003 % (0.000-0.010)
[2022-10-29 00:37] LABS: ACETAMINOPHEN LEVEL < 2.0 UG/ML (10.0-20.0); ALBUMIN 3.2 G/DL (3.2-5.2); ALKALINE PHOSPHATASE 77 U/L (46-116); ALT/SGPT 27 U/L (7.0-40); AST/SGOT 24 U/L (<34); BILIRUBIN,DIRECT 0.1 MG/DL (<0.4); BILIRUBIN,TOTAL 0.3 MG/DL (0.3-1.2); BLOOD UREA NITROGEN 6 MG/DL (9-23); CALCIUM LEVEL 9.2 MG/DL (8.5-10.1); CARBON DIOXIDE LEVEL 31 MMOL/L (20-31); CHLORIDE LEVEL 106 MMOL/L (98-107); CREATININE FOR GFR 0.65 MG/DL (0.55-1.30); GLOMERULAR FILTRATION RATE > 60.0 (>51); GLUCOSE, FASTING 80 MG/DL (60-100); POTASSIUM SERUM 3.4 MMOL/L (3.5-5.1); SALICYLATE LEVEL < 3.0 MG/DL (<30); SODIUM LEVEL 140 MMOL/L (136-145); TOTAL PROTEIN 6.2 G/DL (5.7-8.2)
[2022-10-29 00:40] LABS: THYROID STIMULATING HORMONE 0.268 uIU/ML (0.55-4.78)
[2022-10-29] MEDS ORDERED: CLON0.5T2 PO (02:10)
[2022-10-29] MEDS ORDERED: LORazepam 1 MG TAB PO STA (02:10)
[2022-10-29] MEDS ORDERED: ALBU8.5H INH (02:10)
[2022-10-29] MEDS ORDERED: ONDA4TAB6 PO (02:10)
[2022-10-29] MEDS ORDERED: FLUO-96 PO (02:10)
[2022-10-29] MEDS ORDERED: FLUO40CA PO (02:10)
[2022-10-29] MEDS ORDERED: SUCR1ORA PO (02:10)
[2022-10-29] MEDS ORDERED: CLON1TAB17 PO (02:10)
[2022-10-29] MEDS ORDERED: HOME MED LIST COMPLETE! XX SCH (02:15)
[2022-10-29] MEDS ORDERED: ALBUTEROL 90 MCG/ACT 8GM HFA INHALER INH ONE (02:15)
[2022-10-29] MEDS ORDERED: MAALOX 30 ML SUSP *UDC PO PRN (03:40)
[2022-10-29] MEDS ORDERED: traZODone 50 MG TAB PO PRN (03:40)
[2022-10-29 05:02] VITALS: BP 133/77; TEMP 96.7; O2SAT 99
[2022-10-29] MEDS ORDERED: SUCRALFATE SUSP 1GM/10ML UD PO PRN (07:50)
[2022-10-29] MEDS: ONDANSETRON 4MG TAB PO PRN ×2 (09:13→20:32)
[2022-10-29] MEDS: ALBUTEROL 90 MCG/ACT 8GM HFA INHALER INH PRN ×2 (09:14→20:33)
[2022-10-29] MEDS: FLUoxetine 20MG CAP PO SCH (11:10)
[2022-10-29] MEDS: NICOTINE 21MG/24HR 1 EA TRANSDERMAL TD SCH (14:33)
[2022-10-29 17:34] VITALS: BP 126/82; TEMP 97.7; O2SAT 99
[2022-10-29] MEDS: SUCRALFATE SUSP 1GM/10ML UD PO PRN (17:50)
[2022-10-29] MEDS ORDERED: POTASSIUM CHLORIDE 10MEQ SR TABLET PO ONE (19:15)
[2022-10-29] MEDS: IBUPROFEN 400MG TAB PO PRN (19:44)
[2022-10-29] MEDS: MOM 30ML SUSPENSION UDC PO PRN (19:48)
[2022-10-29 20:09] LABS: FREE T4 1.05 NG/DL (0.89-1.76)
[2022-10-29] MEDS: clonazePAM 1 MG TAB PO SCH (20:32)
[2022-10-30] MEDS: ALBUTEROL 90 MCG/ACT 8GM HFA INHALER INH PRN ×2 (06:31→21:25)
[2022-10-30] MEDS: SUCRALFATE SUSP 1GM/10ML UD PO PRN (06:33)
[2022-10-30 06:45] VITALS: BP 127/80; TEMP 97.4; O2SAT 99
[2022-10-30 07:17] LABS: CHOLESTEROL RISK RATIO 2.76 (<5); HDL CHOLESTEROL 57.6 MG/DL (>40); LDL CHOLESTEROL 85.8 MG/DL (<100); NON-HDL-C 101.4 MG/DL
[2022-10-30] MEDS: FLUoxetine 20MG CAP PO SCH (08:48)
[2022-10-30] MEDS: NICOTINE 21MG/24HR 1 EA TRANSDERMAL TD SCH (09:00)
[2022-10-30] MEDS: clonazePAM 0.5 MG TAB PO PRN (10:51)
[2022-10-30] MEDS: ONDANSETRON 4MG TAB PO PRN (13:40)
[2022-10-30 16:45] VITALS: BP 120/70; TEMP 98.3; O2SAT 100
[2022-10-30] MEDS: clonazePAM 1 MG TAB PO SCH (20:12)
[2022-10-31] MEDS: MOM 30ML SUSPENSION UDC PO PRN (01:05)
[2022-10-31] MEDS: ACETAMINOPHEN TAB 650MG DOSE (2X325MG) PO PRN ×2 (01:08→17:49)
[2022-10-31] MEDS: ONDANSETRON 4MG TAB PO PRN ×3 (02:18→19:35)
[2022-10-31 06:44] VITALS: BP 143/90; TEMP 97; O2SAT 98
[2022-10-31] MEDS: NICOTINE 21MG/24HR 1 EA TRANSDERMAL TD SCH (07:58)
[2022-10-31] MEDS: SUCRALFATE SUSP 1GM/10ML UD PO PRN (07:58)
[2022-10-31] MEDS: ALBUTEROL 90 MCG/ACT 8GM HFA INHALER INH PRN ×2 (07:59→20:47)
[2022-10-31] MEDS: FLUoxetine 20MG CAP PO SCH (09:35)
[2022-10-31] MEDS: clonazePAM 0.5 MG TAB PO PRN (13:39)
[2022-10-31 18:12] VITALS: BP 133/64; TEMP 99; O2SAT 99
[2022-10-31] MEDS: clonazePAM 1 MG TAB PO SCH (20:45)
[2022-11-01] MEDS: ALBUTEROL 90 MCG/ACT 8GM HFA INHALER INH PRN (05:05)
[2022-11-01] MEDS: SUCRALFATE SUSP 1GM/10ML UD PO PRN (05:05)
[2022-11-01] MEDS: MOM 30ML SUSPENSION UDC PO PRN (06:30)
[2022-11-01] MEDS: ONDANSETRON 4MG TAB PO PRN ×3 (06:30→23:22)
[2022-11-01 06:41] VITALS: BP 123/64; TEMP 97.5; O2SAT 100
[2022-11-01] MEDS: diphenhydrAMINE 25MG CAP PO PRN (08:23)
[2022-11-01] MEDS: FLUoxetine 20MG CAP PO SCH (08:23)
[2022-11-01] MEDS: NICOTINE 21MG/24HR 1 EA TRANSDERMAL TD SCH (08:24)
[2022-11-01] MEDS: ACETAMINOPHEN TAB 650MG DOSE (2X325MG) PO PRN (13:19)
[2022-11-01] MEDS: clonazePAM 0.5 MG TAB PO PRN (13:21)
[2022-11-01 18:27] VITALS: BP 140/87; TEMP 97
[2022-11-01] MEDS: clonazePAM 1 MG TAB PO SCH (20:14)
[2022-11-02] MEDS: ALBUTEROL 90 MCG/ACT 8GM HFA INHALER INH PRN ×3 (00:30→22:09)
[2022-11-02] MEDS: ACETAMINOPHEN TAB 650MG DOSE (2X325MG) PO PRN ×2 (00:31→10:34)
[2022-11-02 06:18] VITALS: BP 151/78; TEMP 98.1; O2SAT 98
[2022-11-02] MEDS: ONDANSETRON 4MG TAB PO PRN (06:22)
[2022-11-02] MEDS: FLUoxetine 20MG CAP PO SCH (08:39)
[2022-11-02] MEDS: NICOTINE 21MG/24HR 1 EA TRANSDERMAL TD SCH (08:40)
[2022-11-02] MEDS: clonazePAM 0.5 MG TAB PO PRN (13:44)
[2022-11-02] MEDS: SUCRALFATE SUSP 1GM/10ML UD PO PRN (15:17)
[2022-11-02] MEDS: OLANZapine ORAL DISINTEGRATING TAB 5MG PO PRN (16:02)
[2022-11-02] MEDS: diphenhydrAMINE 25MG CAP PO PRN (16:02)
[2022-11-02] MEDS ORDERED: LORazepam 1 MG TAB PO ONE (16:30)
[2022-11-02] MEDS ORDERED: OLANZapine 5 MG TAB PO ONE (16:30)
[2022-11-02 18:55] VITALS: BP 123/84; TEMP 97.7
[2022-11-02] MEDS: clonazePAM 1 MG TAB PO SCH (21:00)
[2022-11-03 06:13] VITALS: BP 144/82; TEMP 98.3; O2SAT 99
[2022-11-03] MEDS: SUCRALFATE SUSP 1GM/10ML UD PO PRN (06:25)
[2022-11-03] MEDS: ALBUTEROL 90 MCG/ACT 8GM HFA INHALER INH PRN ×2 (06:28→20:40)
[2022-11-03] MEDS: NICOTINE 21MG/24HR 1 EA TRANSDERMAL TD SCH (08:14)
[2022-11-03] MEDS: FLUoxetine 20MG CAP PO SCH (08:14)
[2022-11-03] MEDS: ONDANSETRON 4MG TAB PO PRN ×2 (12:17→20:40)
[2022-11-03] MEDS: OLANZapine 5 MG TAB PO SCH ×2 (12:33→22:00)
[2022-11-03] MEDS: clonazePAM 0.5 MG TAB PO PRN (13:11)
[2022-11-03 18:41] VITALS: BP 158/84; TEMP 98.2; O2SAT 99
[2022-11-03] MEDS: MOM 30ML SUSPENSION UDC PO PRN (20:41)
[2022-11-03] MEDS: clonazePAM 1 MG TAB PO SCH (22:00)
[2022-11-03] MEDS: ACETAMINOPHEN TAB 650MG DOSE (2X325MG) PO PRN (23:45)
[2022-11-04] MEDS: diphenhydrAMINE 25MG CAP PO PRN ×2 (01:08→23:31)
[2022-11-04] MEDS: SUCRALFATE SUSP 1GM/10ML UD PO PRN (06:01)
[2022-11-04] MEDS: ALBUTEROL 90 MCG/ACT 8GM HFA INHALER INH PRN ×3 (06:01→20:32)
[2022-11-04] MEDS: ONDANSETRON 4MG TAB PO PRN ×3 (06:20→22:44)
[2022-11-04 06:58] VITALS: BP 160/77; TEMP 97.6; O2SAT 100
[2022-11-04] MEDS: FLUoxetine 20MG CAP PO SCH (08:00)
[2022-11-04] MEDS: NICOTINE 21MG/24HR 1 EA TRANSDERMAL TD SCH (08:01)
[2022-11-04] MEDS: OLANZapine 5 MG TAB PO SCH (08:03)
[2022-11-04] MEDS: ACETAMINOPHEN TAB 650MG DOSE (2X325MG) PO PRN ×2 (08:04→21:25)
[2022-11-04] MEDS: clonazePAM 0.5 MG TAB PO PRN (12:56)
[2022-11-04 18:23] VITALS: BP 149/89; TEMP 97.6
[2022-11-04] MEDS: clonazePAM 1 MG TAB PO SCH (20:32)
[2022-11-04] MEDS ORDERED: OLANZapine 10 MG TAB PO SCH (21:00)
[2022-11-05] MEDS: FLUoxetine 20MG CAP PO SCH (07:46)
[2022-11-05] MEDS: NICOTINE 21MG/24HR 1 EA TRANSDERMAL TD SCH (07:47)
[2022-11-05] MEDS: ALBUTEROL 90 MCG/ACT 8GM HFA INHALER INH PRN ×2 (07:47→17:42)
[2022-11-05] MEDS: OLANZapine 10 MG TAB PO SCH ×2 (07:47→20:30)
[2022-11-05] MEDS: TOPIRAMATE (TopAMAX) 25 MG TAB PO SCH ×2 (07:47→20:30)
[2022-11-05] MEDS: ONDANSETRON 4MG TAB PO PRN ×2 (08:28→17:41)
[2022-11-05] MEDS ORDERED: OLANZapine 5 MG TAB PO SCH (09:00)
[2022-11-05] MEDS: diphenhydrAMINE 25MG CAP PO PRN ×2 (10:25→23:47)
[2022-11-05] MEDS: clonazePAM 0.5 MG TAB PO PRN (11:03)
[2022-11-05] MEDS: MOM 30ML SUSPENSION UDC PO PRN (15:11)
[2022-11-05 17:43] VITALS: BP 133/73; TEMP 96.8; O2SAT 100
[2022-11-05] MEDS: clonazePAM 1 MG TAB PO SCH (20:30)
[2022-11-05] MEDS: IBUPROFEN 400MG TAB PO PRN (23:48)
[2022-11-06] MEDS: ONDANSETRON 4MG TAB PO PRN ×2 (02:52→19:09)
[2022-11-06] MEDS: ALBUTEROL 90 MCG/ACT 8GM HFA INHALER INH PRN ×4 (02:54→20:07)
[2022-11-06 06:24] VITALS: BP 134/91; TEMP 97.5; O2SAT 100
[2022-11-06] MEDS: SUCRALFATE SUSP 1GM/10ML UD PO PRN (07:47)
[2022-11-06] MEDS: OLANZapine 10 MG TAB PO SCH ×2 (08:30→20:08)
[2022-11-06] MEDS: TOPIRAMATE (TopAMAX) 25 MG TAB PO SCH ×2 (08:30→20:08)
[2022-11-06] MEDS: FLUoxetine 20MG CAP PO SCH (08:30)
[2022-11-06] MEDS: NICOTINE 21MG/24HR 1 EA TRANSDERMAL TD SCH (08:31)
[2022-11-06] MEDS: clonazePAM 0.5 MG TAB PO PRN (10:29)
[2022-11-06] MEDS: ACETAMINOPHEN TAB 650MG DOSE (2X325MG) PO PRN (15:44)
[2022-11-06 18:23] VITALS: BP 139/67; TEMP 97.7; O2SAT 100
[2022-11-06] MEDS: clonazePAM 1 MG TAB PO SCH (20:08)
[2022-11-07] MEDS: diphenhydrAMINE 25MG CAP PO PRN ×2 (02:00→17:48)
[2022-11-07] MEDS: ONDANSETRON 4MG TAB PO PRN ×2 (02:16→21:04)
[2022-11-07] MEDS: ALBUTEROL 90 MCG/ACT 8GM HFA INHALER INH PRN ×2 (05:12→19:34)
[2022-11-07 06:26] VITALS: BP 132/85; TEMP 97.4; O2SAT 100
[2022-11-07] MEDS: clonazePAM 0.5 MG TAB PO PRN (07:06)
[2022-11-07] MEDS: OLANZapine 10 MG TAB PO SCH ×2 (09:38→19:58)
[2022-11-07] MEDS: FLUoxetine 20MG CAP PO SCH (09:38)
[2022-11-07] MEDS: TOPIRAMATE (TopAMAX) 25 MG TAB PO SCH ×2 (09:38→19:58)
[2022-11-07] MEDS: NICOTINE 21MG/24HR 1 EA TRANSDERMAL TD SCH (09:39)
[2022-11-07] MEDS: SUCRALFATE SUSP 1GM/10ML UD PO PRN (19:06)
[2022-11-07] MEDS: clonazePAM 1 MG TAB PO SCH (19:58)
[2022-11-07] MEDS: ACETAMINOPHEN TAB 650MG DOSE (2X325MG) PO PRN (23:02)
[2022-11-08] MEDS: diphenhydrAMINE 25MG CAP PO PRN ×2 (02:56→17:41)
[2022-11-08] MEDS: ALBUTEROL 90 MCG/ACT 8GM HFA INHALER INH PRN ×3 (03:01→22:22)
[2022-11-08] MEDS: ONDANSETRON 4MG TAB PO PRN ×3 (04:45→22:52)
[2022-11-08 06:26] VITALS: BP 142/90; TEMP 97.9; O2SAT 100
[2022-11-08] MEDS: FLUoxetine 20MG CAP PO SCH (08:03)
[2022-11-08] MEDS: OLANZapine 10 MG TAB PO SCH (08:03)
[2022-11-08] MEDS: SUCRALFATE SUSP 1GM/10ML UD PO PRN (08:03)
[2022-11-08] MEDS: TOPIRAMATE (TopAMAX) 25 MG TAB PO SCH ×2 (08:03→20:04)
[2022-11-08] MEDS: NICOTINE 21MG/24HR 1 EA TRANSDERMAL TD SCH (08:06)
[2022-11-08] MEDS ORDERED: clonazePAM 0.5 MG TAB PO SCH (09:25)
[2022-11-08] MEDS: LORazepam 1 MG TAB PO PRN (09:57)
[2022-11-08] MEDS: OXcarbazepine 150 MG TAB PO SCH ×2 (11:22→20:06)
[2022-11-08] MEDS: ACETAMINOPHEN TAB 650MG DOSE (2X325MG) PO PRN (14:22)
[2022-11-08 18:11] VITALS: BP 140/67; TEMP 97.5; O2SAT 99
[2022-11-08] MEDS: clonazePAM 1 MG TAB PO SCH (20:04)
[2022-11-08] MEDS ORDERED: OLANZapine 10 MG TAB PO SCH (21:00)
[2022-11-09] MEDS: diphenhydrAMINE 25MG CAP PO PRN ×2 (01:42→11:49)
[2022-11-09] MEDS: LORazepam 1 MG TAB PO PRN (01:43)
[2022-11-09 06:35] VITALS: BP 148/82; TEMP 97.8; O2SAT 99
[2022-11-09] MEDS: SUCRALFATE SUSP 1GM/10ML UD PO PRN ×2 (06:39→21:45)
[2022-11-09] MEDS: ALBUTEROL 90 MCG/ACT 8GM HFA INHALER INH PRN ×2 (06:39→21:45)
[2022-11-09] MEDS: ONDANSETRON 4MG TAB PO PRN ×2 (07:43→23:14)
[2022-11-09] MEDS: OXcarbazepine 150 MG TAB PO SCH ×2 (08:01→21:00)
[2022-11-09] MEDS: clonazePAM 0.5 MG TAB PO SCH ×2 (08:01→10:04)
[2022-11-09] MEDS: OLANZapine 10 MG TAB PO SCH ×2 (08:02→21:45)
[2022-11-09] MEDS: NICOTINE 21MG/24HR 1 EA TRANSDERMAL TD SCH (08:03)
[2022-11-09] MEDS: TOPIRAMATE (TopAMAX) 25 MG TAB PO SCH ×2 (08:03→21:45)
[2022-11-09] MEDS ORDERED: LORazepam 1 MG TAB PO PRN (09:55)
[2022-11-09] MEDS ORDERED: TUBERCULIN PPD 5 UNITS/0.1 ML ID ONE (10:00)
[2022-11-09] MEDS: MOM 30ML SUSPENSION UDC PO PRN (10:17)
[2022-11-09] MEDS: LORazepam 2 MG TAB PO PRN ×2 (13:19→21:46)
[2022-11-09] MEDS: ACETAMINOPHEN TAB 650MG DOSE (2X325MG) PO PRN (15:57)
[2022-11-09 16:39] VITALS: BP 124/82; TEMP 98.2; O2SAT 100
[2022-11-09] MEDS: clonazePAM 1 MG TAB PO SCH (21:45)
[2022-11-10 06:38] VITALS: BP 131/64; TEMP 98.1; O2SAT 99
[2022-11-10] MEDS: OLANZapine 10 MG TAB PO SCH ×2 (07:18→20:33)
[2022-11-10] MEDS: LORazepam 2 MG TAB PO PRN ×2 (07:19→13:55)
[2022-11-10] MEDS: NICOTINE 21MG/24HR 1 EA TRANSDERMAL TD SCH (07:20)
[2022-11-10] MEDS: clonazePAM 0.5 MG TAB PO SCH (07:20)
[2022-11-10] MEDS: TOPIRAMATE (TopAMAX) 25 MG TAB PO SCH ×2 (07:21→20:34)
[2022-11-10] MEDS: OXcarbazepine 150 MG TAB PO SCH ×2 (07:22→20:34)
[2022-11-10] MEDS: SUCRALFATE SUSP 1GM/10ML UD PO PRN (09:41)
[2022-11-10] MEDS: ACETAMINOPHEN TAB 650MG DOSE (2X325MG) PO PRN (09:42)
[2022-11-10] MEDS: ONDANSETRON 4MG TAB PO PRN ×2 (11:20→22:56)
[2022-11-10] MEDS: CEPACOL LOZENGE PO PRN ×2 (12:50→19:32)
[2022-11-10] MEDS: diphenhydrAMINE 25MG CAP PO PRN (12:50)
[2022-11-10] MEDS: MOM 30ML SUSPENSION UDC PO PRN (13:54)
[2022-11-10 17:56] VITALS: BP 144/71; TEMP 98.4; O2SAT 99
[2022-11-10] MEDS: ALBUTEROL 90 MCG/ACT 8GM HFA INHALER INH PRN (19:32)
[2022-11-10] MEDS: clonazePAM 1 MG TAB PO SCH (20:34)
[2022-11-11] MEDS: CEPACOL LOZENGE PO PRN ×4 (00:02→21:57)
[2022-11-11] MEDS: LORazepam 2 MG TAB PO PRN ×4 (00:02→21:57)
[2022-11-11] MEDS: SUCRALFATE SUSP 1GM/10ML UD PO PRN (06:24)
[2022-11-11] MEDS: diphenhydrAMINE 25MG CAP PO PRN ×2 (06:24→13:10)
[2022-11-11] MEDS: ALBUTEROL 90 MCG/ACT 8GM HFA INHALER INH PRN ×3 (06:25→20:45)
[2022-11-11 06:39] VITALS: BP 122/74; TEMP 97.8; O2SAT 99
[2022-11-11] MEDS: ONDANSETRON 4MG TAB PO PRN ×2 (07:11→17:07)
[2022-11-11] MEDS: TOPIRAMATE (TopAMAX) 25 MG TAB PO SCH ×2 (08:07→20:44)
[2022-11-11] MEDS: OLANZapine 10 MG TAB PO SCH ×2 (08:07→20:44)
[2022-11-11] MEDS: NICOTINE 21MG/24HR 1 EA TRANSDERMAL TD SCH (08:09)
[2022-11-11] MEDS: clonazePAM 0.5 MG TAB PO SCH (08:09)
[2022-11-11] MEDS: OXcarbazepine 150 MG TAB PO SCH (08:09)
[2022-11-11] MEDS ORDERED: PPD DOCUMENTATION ENTRY MISC XX ONE (10:00)
[2022-11-11] MEDS: ACETAMINOPHEN TAB 650MG DOSE (2X325MG) PO PRN ×2 (13:16→21:56)
[2022-11-11 18:20] VITALS: BP 127/71; TEMP 97.5; O2SAT 98
[2022-11-11] MEDS ORDERED: LITHIUM CARBONATE 150 MG CAP PO SCH (21:00)
[2022-11-11] MEDS ORDERED: LITHIUM CARBONATE 300 MG CAP PO SCH (21:00)
[2022-11-12] MEDS: CEPACOL LOZENGE PO PRN ×3 (05:27→17:24)
[2022-11-12] MEDS: ALBUTEROL 90 MCG/ACT 8GM HFA INHALER INH PRN ×2 (05:27→22:19)
[2022-11-12 06:08] VITALS: BP 138/81; TEMP 97.4; O2SAT 99
[2022-11-12] MEDS: LORazepam 2 MG TAB PO PRN ×3 (06:29→22:18)
[2022-11-12] MEDS: OLANZapine 10 MG TAB PO SCH ×2 (09:19→20:21)
[2022-11-12] MEDS: NICOTINE 14 MG/24 HR TRANSDERMAL TD SCH (09:19)
[2022-11-12] MEDS: TOPIRAMATE (TopAMAX) 25 MG TAB PO SCH ×2 (09:19→20:20)
[2022-11-12] MEDS: LIDOCAINE 5% (LIDODERM) PATCH TD SCH (11:07)
[2022-11-12] MEDS: ACETAMINOPHEN TAB 650MG DOSE (2X325MG) PO PRN ×2 (11:10→17:25)
[2022-11-12] MEDS: OLANZapine ORAL DISINTEGRATING TAB 5MG PO PRN (12:41)
[2022-11-12 16:15] VITALS: BP 144/78; TEMP 98.8; O2SAT 100
[2022-11-12] MEDS: LITHIUM CARBONATE 300 MG CAP PO SCH (20:21)
[2022-11-12] MEDS: diphenhydrAMINE 25MG CAP PO PRN (20:22)
[2022-11-12] MEDS: SUCRALFATE SUSP 1GM/10ML UD PO PRN (20:22)
[2022-11-12] MEDS: ANALGESIC BALM CRM 3OZ TOP PRN (22:19)
[2022-11-12] MEDS: ONDANSETRON 4MG TAB PO PRN (22:43)
[2022-11-13] MEDS: MOM 30ML SUSPENSION UDC PO PRN ×2 (00:10→23:06)
[2022-11-13] MEDS: TOPIRAMATE (TopAMAX) 25 MG TAB PO SCH ×2 (07:36→19:49)
[2022-11-13] MEDS: NICOTINE 14 MG/24 HR TRANSDERMAL TD SCH (07:37)
[2022-11-13] MEDS: OLANZapine 10 MG TAB PO SCH ×2 (07:37→19:49)
[2022-11-13] MEDS: LORazepam 2 MG TAB PO PRN ×3 (07:37→21:09)
[2022-11-13] MEDS: LIDOCAINE 5% (LIDODERM) PATCH TD SCH (07:38)
[2022-11-13] MEDS: ALBUTEROL 90 MCG/ACT 8GM HFA INHALER INH PRN ×2 (07:41→19:48)
[2022-11-13] MEDS: ONDANSETRON 4MG TAB PO PRN (07:44)
[2022-11-13] MEDS: ANALGESIC BALM CRM 3OZ TOP PRN ×2 (08:55→23:08)
[2022-11-13] MEDS: SUCRALFATE SUSP 1GM/10ML UD PO PRN (08:55)
[2022-11-13] MEDS: CEPACOL LOZENGE PO PRN ×2 (08:56→16:34)
[2022-11-13] MEDS: ACETAMINOPHEN TAB 650MG DOSE (2X325MG) PO PRN ×2 (12:29→23:07)
[2022-11-13 16:52] VITALS: BP 138/69; TEMP 98.5; O2SAT 100
[2022-11-13] MEDS: LITHIUM CARBONATE 300 MG CAP PO SCH (19:49)
[2022-11-13] MEDS: diphenhydrAMINE 25MG CAP PO PRN (19:50)
[2022-11-14] MEDS: CEPACOL LOZENGE PO PRN ×3 (04:10→20:46)
[2022-11-14 06:39] VITALS: BP 147/89; TEMP 97.6; O2SAT 100
[2022-11-14] MEDS: SUCRALFATE SUSP 1GM/10ML UD PO PRN (07:30)
[2022-11-14] MEDS: TOPIRAMATE (TopAMAX) 25 MG TAB PO SCH ×2 (07:31→20:44)
[2022-11-14] MEDS: ONDANSETRON 4MG TAB PO PRN ×2 (07:32→15:31)
[2022-11-14] MEDS: OLANZapine 10 MG TAB PO SCH ×2 (07:32→20:43)
[2022-11-14] MEDS: LIDOCAINE 5% (LIDODERM) PATCH TD SCH (07:33)
[2022-11-14] MEDS: NICOTINE 14 MG/24 HR TRANSDERMAL TD SCH (07:34)
[2022-11-14] MEDS: ANALGESIC BALM CRM 3OZ TOP PRN ×2 (07:36→17:32)
[2022-11-14] MEDS: LORazepam 2 MG TAB PO PRN ×3 (07:38→20:45)
[2022-11-14] MEDS: ALBUTEROL 90 MCG/ACT 8GM HFA INHALER INH PRN ×2 (13:19→20:46)
[2022-11-14] MEDS: ACETAMINOPHEN TAB 650MG DOSE (2X325MG) PO PRN (15:33)
[2022-11-14 18:08] VITALS: BP 150/88; TEMP 97.9
[2022-11-14] MEDS: LITHIUM CARBONATE 300 MG CAP PO SCH (20:42)
[2022-11-15] MEDS: ANALGESIC BALM CRM 3OZ TOP PRN ×2 (03:15→17:43)
[2022-11-15] MEDS: ONDANSETRON 4MG TAB PO PRN ×3 (04:14→22:47)
[2022-11-15] MEDS: ALBUTEROL 90 MCG/ACT 8GM HFA INHALER INH PRN ×4 (04:17→22:47)
[2022-11-15] MEDS: diphenhydrAMINE 25MG CAP PO PRN (04:28)
[2022-11-15] MEDS: ACETAMINOPHEN TAB 650MG DOSE (2X325MG) PO PRN (05:31)
[2022-11-15 06:24] VITALS: BP 149/77; TEMP 98.3; O2SAT 98
[2022-11-15] MEDS: CEPACOL LOZENGE PO PRN ×3 (07:29→17:16)
[2022-11-15] MEDS: LORazepam 2 MG TAB PO PRN ×3 (07:30→22:48)
[2022-11-15] MEDS: OLANZapine 10 MG TAB PO SCH ×2 (08:54→21:50)
[2022-11-15] MEDS: TOPIRAMATE (TopAMAX) 25 MG TAB PO SCH ×2 (08:54→21:50)
[2022-11-15] MEDS: NICOTINE 14 MG/24 HR TRANSDERMAL TD SCH (08:55)
[2022-11-15] MEDS: LIDOCAINE 5% (LIDODERM) PATCH TD SCH (08:57)
[2022-11-15] MEDS: SUCRALFATE SUSP 1GM/10ML UD PO PRN (08:59)
[2022-11-15] MEDS: LITHIUM CARBONATE 300 MG CAP PO SCH (21:50)
[2022-11-16] MEDS: ACETAMINOPHEN TAB 650MG DOSE (2X325MG) PO PRN ×2 (03:49→17:42)
[2022-11-16 05:55] VITALS: BP 142/89; TEMP 97; O2SAT 99
[2022-11-16] MEDS: CEPACOL LOZENGE PO PRN ×3 (06:37→17:41)
[2022-11-16] MEDS: SUCRALFATE SUSP 1GM/10ML UD PO PRN (06:37)
[2022-11-16] MEDS: TOPIRAMATE (TopAMAX) 25 MG TAB PO SCH ×2 (08:17→20:28)
[2022-11-16] MEDS: OLANZapine 10 MG TAB PO SCH ×2 (08:17→20:28)
[2022-11-16] MEDS: LIDOCAINE 5% (LIDODERM) PATCH TD SCH (08:18)
[2022-11-16] MEDS: NICOTINE 14 MG/24 HR TRANSDERMAL TD SCH (08:19)
[2022-11-16] MEDS: LORazepam 2 MG TAB PO PRN ×3 (08:26→21:29)
[2022-11-16] MEDS: ALBUTEROL 90 MCG/ACT 8GM HFA INHALER INH PRN ×2 (08:57→20:30)
[2022-11-16] MEDS: MOM 30ML SUSPENSION UDC PO PRN (11:14)
[2022-11-16] MEDS: ANALGESIC BALM CRM 3OZ TOP PRN (11:15)
[2022-11-16] MEDS: ONDANSETRON 4MG TAB PO PRN (12:14)
[2022-11-16] MEDS: diphenhydrAMINE 25MG CAP PO PRN (13:50)
[2022-11-16 18:24] VITALS: BP 163/87; TEMP 98.1; O2SAT 98
[2022-11-16] MEDS: LITHIUM CARBONATE 300 MG CAP PO SCH (20:28)
[2022-11-17] MEDS: ANALGESIC BALM CRM 3OZ TOP PRN (04:50)
[2022-11-17] MEDS: ONDANSETRON 4MG TAB PO PRN (04:50)
[2022-11-17] MEDS: CEPACOL LOZENGE PO PRN (05:16)
[2022-11-17 06:21] VITALS: BP 139/67; TEMP 98; O2SAT 100
[2022-11-17] MEDS: LORazepam 2 MG TAB PO PRN (07:38)
[2022-11-17] MEDS: TOPIRAMATE (TopAMAX) 25 MG TAB PO SCH (08:09)
[2022-11-17] MEDS: OLANZapine 10 MG TAB PO SCH (08:09)
[2022-11-17] MEDS: LIDOCAINE 5% (LIDODERM) PATCH TD SCH (08:10)
[2022-11-17] MEDS: NICOTINE 14 MG/24 HR TRANSDERMAL TD SCH (08:10)
[2022-11-17] MEDS: SUCRALFATE SUSP 1GM/10ML UD PO PRN (08:53)
[2022-11-17] MEDS ORDERED: OLAN1TAB20 PO (09:17)
[2022-11-17] MEDS ORDERED: LORA2TA PO (09:17)
[2022-11-17] MEDS ORDERED: TOPA1TAB PO (09:17)
[2022-11-17] MEDS ORDERED: NICO14PA TD (09:17)
[2022-11-17] MEDS ORDERED: TOPA50TA8 PO ×2 (09:17→09:19)
[2022-11-17] MEDS ORDERED: LITH300C PO (09:17)
[2022-11-17] MEDS ORDERED: LIDO5TD TD (09:17)
== END 2022-11-17 13:21 | disposition home or self-care (01) | DRG 885 ==
LOC: M ED 21:57 → M ED INP 10-29 03:37 → M PSY 10-29 04:59
PROVIDERS: ADMIT Student in an Organized Health Care Education/Training Program; ATTEND Student in an Organized Health Care Education/Training Program
DX: F31.2 Bipolar disorder, current episode manic severe with psychotic features (principal); F42.9 Obsessive-compulsive disorder, unspecified; F43.10 Post-traumatic stress disorder, unspecified; F19.14 Other psychoactive substance abuse with psychoactive substance-induced mood disorder; F12.90 Cannabis use, unspecified, uncomplicated; E87.6 Hypokalemia; J44.9 Chronic obstructive pulmonary disease, unspecified; K21.9 Gastro-esophageal reflux disease without esophagitis; F17.200 Nicotine dependence, unspecified, uncomplicated; J45.909 Unspecified asthma, uncomplicated; Z62.810 Personal history of physical and sexual abuse in childhood; Z63.0 Problems in relationship with spouse or partner; Z79.899 Other long term (current) drug therapy; Z88.0 Allergy status to penicillin; Z88.8 Allergy status to other drugs, medicaments and biological substances; Z88.6 Allergy status to analgesic agent

== ENCOUNTER 2022-11-19 12:12 | Inpatient (IN) | payer MEDICARE, MEDICAID ==
[~2022-11-19] VITALS: Ht 162.6 cm; Wt 59.0 kg
[~2022-11-19 12:12] MED LIST changes: +ALBU8.5H INH; +CLON0.5T2 PO; +FLUO-96 PO; +FLUO40CA PO; +LIDO5TD TD; +LITH300C PO; +LORA2TA PO; +OLAN1TAB20 PO; +SUCR1ORA PO; +TOPA1TAB PO; +TOPA50TA8 PO
[2022-11-19 13:35] LABS: HEMATOCRIT 36.5 % (36.0-47.0); HEMOGLOBIN 11.8 g/dl (12.0-15.5); MEAN CORPUSCULAR HEMOGLOBIN 30.2 pg (27.0-33.0); MEAN CORPUSCULAR HGB CONC 32.3 g/dl (32.0-36.5); MEAN CORPUSCULAR VOLUME 93.4 fl (80.0-96.0); PLATELET COUNT, AUTOMATED 374 10^3/uL (150-450); RED BLOOD COUNT 3.91 10^6/uL (4.00-5.40); WHITE BLOOD COUNT 13.3 10^3/uL (4.0-10.0)
[2022-11-19 13:57] LABS: AMPHETAMINES LEVEL URINE NEGATIVE (NEGATIVE); BARBITURATES URINE NEGATIVE (NEGATIVE); BENZODIAZEPINES URINE NEGATIVE (NEGATIVE)
[2022-11-19 13:58] LABS: COCAINE METABOLITE URINE NEGATIVE (NEGATIVE); METHADONE URINE NEGATIVE (NEGATIVE); OPIATES URINE NEGATIVE (NEGATIVE); PHENCYCLIDINE URINE NEGATIVE (NEGATIVE)
[2022-11-19 13:59] LABS: CANNABINOIDS URINE POSITIVE (NEGATIVE)
[2022-11-19 13:59] LABS: ETHYL ALCOHOL (ETHANOL) < 0.003 % (0.000-0.010)
[2022-11-19 14:01] LABS: ACETAMINOPHEN LEVEL < 2.0 UG/ML (10.0-20.0); ALBUMIN 3.3 G/DL (3.2-5.2); ALKALINE PHOSPHATASE 91 U/L (46-116); ALT/SGPT 37 U/L (7.0-40); AST/SGOT 34 U/L (<34); BILIRUBIN,DIRECT 0.2 MG/DL (<0.4); BILIRUBIN,TOTAL 0.7 MG/DL (0.3-1.2); BLOOD UREA NITROGEN 14 MG/DL (9-23); CALCIUM LEVEL 8.7 MG/DL (8.5-10.1); CARBON DIOXIDE LEVEL 26 MMOL/L (20-31); CHLORIDE LEVEL 106 MMOL/L (98-107); GLOMERULAR FILTRATION RATE > 60.0 (>51); GLUCOSE, FASTING 73 MG/DL (60-100); POTASSIUM SERUM 3.5 MMOL/L (3.5-5.1); SALICYLATE LEVEL < 3.0 MG/DL (<30); SODIUM LEVEL 141 MMOL/L (136-145); TOTAL PROTEIN 6.3 G/DL (5.7-8.2)
[2022-11-19 14:03] LABS: LITHIUM LEVEL < 0.10 MMOL/L (1.0-1.20)
[2022-11-19 14:04] LABS: THYROID STIMULATING HORMONE 0.803 uIU/ML (0.55-4.78)
[2022-11-19 14:19] LABS: HCG, SERUM QUALITATIVE NEGATIVE (NEGATIVE)
[2022-11-19] MEDS ORDERED: clonazePAM 1 MG TAB PO PRN (15:55)
[2022-11-19 18:37] VITALS: BP 125/81; TEMP 98.2; O2SAT 100
[2022-11-19] MEDS: TOPIRAMATE (TopAMAX) 25 MG TAB PO SCH (20:38)
[2022-11-19] MEDS ORDERED: LORA2TAB14 PO (21:35)
[2022-11-19] MEDS ORDERED: OLAN1TAB20 PO (21:39)
[2022-11-19] MEDS ORDERED: LITH300C PO (21:39)
[2022-11-19] MEDS ORDERED: TOPI-254 PO (21:41)
[2022-11-19] MEDS ORDERED: TOPI25TA10 PO (21:41)
[2022-11-19] MEDS ORDERED: ONDA4TAB6 PO (21:43)
[2022-11-19] MEDS: MOM 30ML SUSPENSION UDC PO PRN (21:43)
[2022-11-19] MEDS: ACETAMINOPHEN TAB 650MG DOSE (2X325MG) PO PRN (21:44)
[2022-11-19] MEDS ORDERED: HOME MED LIST COMPLETE! XX SCH (21:45)
[2022-11-19] MEDS: diphenhydrAMINE 25MG CAP PO PRN (23:22)
[2022-11-19] MEDS: MAALOX 30 ML SUSP *UDC PO PRN (23:49)
[2022-11-20] MEDS: IBUPROFEN 400MG TAB PO PRN ×2 (05:52→13:32)
[2022-11-20 06:00] VITALS: BP 116/69; TEMP 96.8; O2SAT 100
[2022-11-20] MEDS: TOPIRAMATE (TopAMAX) 25 MG TAB PO SCH ×2 (08:18→19:33)
[2022-11-20] MEDS: NICOTINE 14 MG/24 HR TRANSDERMAL TD SCH (10:30)
[2022-11-20] MEDS: diphenhydrAMINE 25MG CAP PO PRN (10:31)
[2022-11-20 12:16] LABS: BASO % 0.4 % (0.0-1.0); EOS # 0.2 10^3/uL (0.0-0.5); EOS % 2.1 % (0.0-3.0); HEMATOCRIT 34.7 % (36.0-47.0); HEMOGLOBIN 11.2 g/dl (12.0-15.5); LYMPH # 1.2 10^3/uL (1.5-5.0); LYMPH % 11.3 % (24.0-44.0); MEAN CORPUSCULAR HEMOGLOBIN 30.1 pg (27.0-33.0); MEAN CORPUSCULAR HGB CONC 32.3 g/dl (32.0-36.5); MEAN CORPUSCULAR VOLUME 93.3 fl (80.0-96.0); MONO # 0.6 10^3/uL (0.0-0.8); MONO % 5.6 % (2.0-8.0); NEUTROPHILS # 8.9 10^3/uL (1.5-8.5); NEUTROPHILS % 80.3 % (36.0-66.0); PLATELET COUNT, AUTOMATED 356 10^3/uL (150-450); RED BLOOD COUNT 3.72 10^6/uL (4.00-5.40)
[2022-11-20] MEDS: POLYSPORIN TOPICAL OINTMENT 15GM TOP SCH ×2 (13:31→20:23)
[2022-11-20] MEDS: ALBUTEROL 90 MCG/ACT 8GM HFA INHALER INH PRN (14:25)
[2022-11-20] MEDS: ONDANSETRON 4MG TAB PO PRN (16:13)
[2022-11-20 18:42] VITALS: BP 135/65; TEMP 97.9; O2SAT 100
[2022-11-20] MEDS ORDERED: LORazepam 2 MG/ML 1ML VIAL IM STA (19:24)
[2022-11-20] MEDS: MAALOX 30 ML SUSP *UDC PO PRN (19:24)
[2022-11-20] MEDS ORDERED: diphenhydrAMINE 50MG/ML VIAL IM STA (19:24)
[2022-11-20] MEDS ORDERED: HALOPERIDOL 5MG/ML 1ML VIAL IM STA (19:24)
[2022-11-20 20:00] VITALS: BP 132/78; TEMP 98; O2SAT 99
[2022-11-20 20:15] VITALS: BP 138/75; TEMP 97.7; O2SAT 100
[2022-11-20 20:30] VITALS: BP 141/82; TEMP 98.1; O2SAT 100
[2022-11-21] MEDS: ONDANSETRON 4MG TAB PO PRN ×2 (04:42→18:08)
[2022-11-21 05:30] VITALS: BP 116/60; TEMP 97.7; O2SAT 99
[2022-11-21] MEDS: TOPIRAMATE (TopAMAX) 25 MG TAB PO SCH ×2 (08:28→20:09)
[2022-11-21] MEDS: ALBUTEROL 90 MCG/ACT 8GM HFA INHALER INH PRN ×3 (08:29→20:08)
[2022-11-21] MEDS: NICOTINE 14 MG/24 HR TRANSDERMAL TD SCH (08:29)
[2022-11-21] MEDS: POLYSPORIN TOPICAL OINTMENT 15GM TOP SCH ×2 (08:29→20:08)
[2022-11-21] MEDS: diphenhydrAMINE 25MG CAP PO PRN ×2 (08:34→15:15)
[2022-11-21] MEDS: IBUPROFEN 400MG TAB PO PRN (10:39)
[2022-11-21] MEDS: LORazepam 1 MG TAB PO PRN ×2 (10:40→22:57)
[2022-11-21] MEDS: MOM 30ML SUSPENSION UDC PO PRN (11:21)
[2022-11-21] MEDS: ANALGESIC BALM CRM 3OZ TOP PRN (15:45)
[2022-11-21 18:00] VITALS: BP 148/83; TEMP 98.4; O2SAT 100
[2022-11-21] MEDS: ACETAMINOPHEN TAB 650MG DOSE (2X325MG) PO PRN (19:58)
[2022-11-21] MEDS: SUCRALFATE SUSP 1GM/10ML UD PO PRN (22:01)
[2022-11-22] MEDS: diphenhydrAMINE 25MG CAP PO PRN (00:52)
[2022-11-22] MEDS: ANALGESIC BALM CRM 3OZ TOP PRN ×2 (00:55→10:57)
[2022-11-22] MEDS: ALBUTEROL 90 MCG/ACT 8GM HFA INHALER INH PRN ×3 (00:55→20:37)
[2022-11-22 06:55] VITALS: BP 132/73; TEMP 98; O2SAT 99
[2022-11-22] MEDS: ONDANSETRON 4MG TAB PO PRN ×2 (08:17→20:06)
[2022-11-22] MEDS: TOPIRAMATE (TopAMAX) 25 MG TAB PO SCH ×2 (08:17→20:06)
[2022-11-22] MEDS: NICOTINE 14 MG/24 HR TRANSDERMAL TD SCH (08:17)
[2022-11-22] MEDS: POLYSPORIN TOPICAL OINTMENT 15GM TOP SCH ×2 (08:18→20:08)
[2022-11-22] MEDS ORDERED: HALOPERIDOL DECANOATE 100 MG/ML 1ML VIAL IM SCH (09:00)
[2022-11-22] MEDS: diphenhydrAMINE 50MG CAP PO PRN (10:54)
[2022-11-22] MEDS ORDERED: SUCRALFATE SUSP 1GM/10ML UD PO PRN (11:55)
[2022-11-22] MEDS: SUCRALFATE SUSP 1GM/10ML UD PO PRN (12:19)
[2022-11-22] MEDS: LORazepam 1 MG TAB PO PRN (13:55)
[2022-11-22] MEDS: ACETAMINOPHEN TAB 650MG DOSE (2X325MG) PO PRN (17:21)
[2022-11-22 17:38] VITALS: BP 134/88; TEMP 97.7; O2SAT 100
[2022-11-22] MEDS: MAALOX 30 ML SUSP *UDC PO PRN (20:08)
[2022-11-23] MEDS: diphenhydrAMINE 50MG CAP PO PRN ×4 (01:29→22:19)
[2022-11-23] MEDS: ANALGESIC BALM CRM 3OZ TOP PRN ×3 (01:33→20:25)
[2022-11-23 01:38] VITALS: BP 138/84; TEMP 96.4; O2SAT 97
[2022-11-23] MEDS: MAALOX 30 ML SUSP *UDC PO PRN ×2 (03:15→17:50)
[2022-11-23 06:35] VITALS: BP 150/87; TEMP 99.6; O2SAT 100
[2022-11-23] MEDS: IBUPROFEN 400MG TAB PO PRN (08:15)
[2022-11-23] MEDS: NICOTINE 14 MG/24 HR TRANSDERMAL TD SCH (08:15)
[2022-11-23] MEDS: TOPIRAMATE (TopAMAX) 25 MG TAB PO SCH ×2 (08:15→20:25)
[2022-11-23] MEDS: LORazepam 1 MG TAB PO PRN ×2 (08:16→21:15)
[2022-11-23] MEDS: ONDANSETRON 4MG TAB PO PRN (09:44)
[2022-11-23] MEDS: SUCRALFATE SUSP 1GM/10ML UD PO PRN (13:05)
[2022-11-23 16:11] VITALS: BP 140/76; TEMP 98.5; O2SAT 100
[2022-11-23] MEDS: ALBUTEROL 90 MCG/ACT 8GM HFA INHALER INH PRN (20:25)
[2022-11-24] MEDS: IBUPROFEN 400MG TAB PO PRN ×2 (03:59→08:37)
[2022-11-24 06:33] VITALS: BP 150/90; TEMP 98.3; O2SAT 100
[2022-11-24] MEDS: TOPIRAMATE (TopAMAX) 25 MG TAB PO SCH ×2 (08:31→20:07)
[2022-11-24] MEDS: NICOTINE 14 MG/24 HR TRANSDERMAL TD SCH (08:32)
[2022-11-24] MEDS: LORazepam 1 MG TAB PO PRN ×2 (10:14→22:19)
[2022-11-24] MEDS: ONDANSETRON 4MG TAB PO PRN (11:22)
[2022-11-24 16:00] VITALS: BP 144/78; TEMP 98.1; O2SAT 97
[2022-11-24] MEDS: diphenhydrAMINE 50MG CAP PO PRN (17:15)
[2022-11-24] MEDS: SUCRALFATE SUSP 1GM/10ML UD PO PRN (18:57)
[2022-11-24] MEDS: ALBUTEROL 90 MCG/ACT 8GM HFA INHALER INH PRN (19:30)
[2022-11-24] MEDS: TOPIRAMATE (TopAMAX) 100 MG TAB PO SCH (20:07)
[2022-11-24] MEDS: ANALGESIC BALM CRM 3OZ TOP PRN (21:29)
[2022-11-24] MEDS: MOM 30ML SUSPENSION UDC PO PRN (23:50)
[2022-11-25 06:26] VITALS: BP 121/66; TEMP 98.2; O2SAT 99
[2022-11-25] MEDS: diphenhydrAMINE 50MG CAP PO PRN (06:30)
[2022-11-25] MEDS: SUCRALFATE SUSP 1GM/10ML UD PO PRN (07:29)
[2022-11-25] MEDS: ANALGESIC BALM CRM 3OZ TOP PRN ×2 (07:29→23:16)
[2022-11-25] MEDS: TOPIRAMATE (TopAMAX) 100 MG TAB PO SCH ×2 (08:05→20:28)
[2022-11-25] MEDS: NICOTINE 14 MG/24 HR TRANSDERMAL TD SCH (08:07)
[2022-11-25] MEDS: TOPIRAMATE (TopAMAX) 25 MG TAB PO SCH ×2 (08:07→20:28)
[2022-11-25] MEDS: ONDANSETRON 4MG TAB PO PRN ×2 (08:32→20:28)
[2022-11-25] MEDS: ALBUTEROL 90 MCG/ACT 8GM HFA INHALER INH PRN ×2 (08:32→19:04)
[2022-11-25] MEDS: clonazePAM 1 MG TAB PO SCH ×2 (09:07→20:28)
[2022-11-25 17:23] VITALS: BP 129/87; TEMP 97; O2SAT 99
[2022-11-25] MEDS: IBUPROFEN 400MG TAB PO PRN (23:08)
[2022-11-26] MEDS: SUCRALFATE SUSP 1GM/10ML UD PO PRN (01:21)
[2022-11-26] MEDS: diphenhydrAMINE 50MG CAP PO PRN ×2 (03:27→19:42)
[2022-11-26 06:17] VITALS: BP 134/83; TEMP 97.1; O2SAT 95
[2022-11-26] MEDS: clonazePAM 1 MG TAB PO SCH ×2 (08:38→20:18)
[2022-11-26] MEDS: TOPIRAMATE (TopAMAX) 100 MG TAB PO SCH ×2 (08:38→20:19)
[2022-11-26] MEDS: TOPIRAMATE (TopAMAX) 25 MG TAB PO SCH (08:38)
[2022-11-26] MEDS: NICOTINE 14 MG/24 HR TRANSDERMAL TD SCH (08:38)
[2022-11-26] MEDS: ONDANSETRON 4MG TAB PO PRN (09:59)
[2022-11-26] MEDS ORDERED: HALOPERIDOL DECANOATE 100 MG/ML 1ML VIAL IM ONE (12:00)
[2022-11-26] MEDS: IBUPROFEN 400MG TAB PO PRN (15:19)
[2022-11-26 16:31] VITALS: BP 131/65; TEMP 98; O2SAT 100
[2022-11-26] MEDS: ALBUTEROL 90 MCG/ACT 8GM HFA INHALER INH PRN (20:19)
[2022-11-26] MEDS: ANALGESIC BALM CRM 3OZ TOP PRN (20:34)
[2022-11-27] MEDS: SUCRALFATE SUSP 1GM/10ML UD PO PRN ×2 (05:50→19:26)
[2022-11-27] MEDS: ALBUTEROL 90 MCG/ACT 8GM HFA INHALER INH PRN ×2 (06:07→20:37)
[2022-11-27 06:36] VITALS: BP 129/77; TEMP 97.7; O2SAT 98
[2022-11-27] MEDS: IBUPROFEN 400MG TAB PO PRN ×2 (06:47→14:57)
[2022-11-27] MEDS: NICOTINE 14 MG/24 HR TRANSDERMAL TD SCH (09:43)
[2022-11-27] MEDS: TOPIRAMATE (TopAMAX) 100 MG TAB PO SCH ×2 (09:43→20:37)
[2022-11-27] MEDS: clonazePAM 1 MG TAB PO SCH ×2 (09:43→20:37)
[2022-11-27] MEDS: ONDANSETRON 4MG TAB PO PRN (12:15)
[2022-11-27] MEDS: ANALGESIC BALM CRM 3OZ TOP PRN (12:15)
[2022-11-27 16:10] VITALS: BP 129/61; TEMP 98.1; O2SAT 96
[2022-11-27] MEDS: diphenhydrAMINE 50MG CAP PO PRN (17:14)
[2022-11-27 18:22] LABS: HIV 1&2 SCREEN NEGATIVE (NEGATIVE)
[2022-11-27 18:29] LABS: HEPATITIS B CORE ANTIBODY IGM NEGATIVE (NEGATIVE)
[2022-11-27 18:46] LABS: HEPATITIS C VIRUS ABY INDEX > 11.00 INDEX (<0.8)
[2022-11-27] MEDS: MOM 30ML SUSPENSION UDC PO PRN (21:31)
[2022-11-28] MEDS: diphenhydrAMINE 50MG CAP PO PRN ×4 (00:05→23:10)
[2022-11-28] MEDS: ANALGESIC BALM CRM 3OZ TOP PRN ×2 (00:06→17:17)
[2022-11-28] MEDS: ALBUTEROL 90 MCG/ACT 8GM HFA INHALER INH PRN ×2 (05:38→19:16)
[2022-11-28] MEDS: IBUPROFEN 400MG TAB PO PRN (05:38)
[2022-11-28 06:30] VITALS: BP 123/68; TEMP 97; O2SAT 96
[2022-11-28] MEDS: SUCRALFATE SUSP 1GM/10ML UD PO PRN ×2 (06:57→19:42)
[2022-11-28] MEDS: NICOTINE 14 MG/24 HR TRANSDERMAL TD SCH (08:06)
[2022-11-28] MEDS: clonazePAM 1 MG TAB PO SCH ×2 (08:06→20:42)
[2022-11-28] MEDS: TOPIRAMATE (TopAMAX) 100 MG TAB PO SCH ×2 (08:06→20:42)
[2022-11-28] MEDS: ONDANSETRON 4MG TAB PO PRN (12:18)
[2022-11-28 16:10] VITALS: BP 131/77; TEMP 98.3; O2SAT 100
[2022-11-28] MEDS: MOM 30ML SUSPENSION UDC PO PRN (23:57)
[2022-11-29] MEDS: MAALOX 30 ML SUSP *UDC PO PRN (01:19)
[2022-11-29 06:14] VITALS: BP 113/64; TEMP 99.3; O2SAT 98
[2022-11-29] MEDS: ALBUTEROL 90 MCG/ACT 8GM HFA INHALER INH PRN ×2 (06:47→17:10)
[2022-11-29] MEDS: SUCRALFATE SUSP 1GM/10ML UD PO PRN ×2 (07:42→21:45)
[2022-11-29] MEDS: ONDANSETRON 4MG TAB PO PRN (07:44)
[2022-11-29] MEDS: TOPIRAMATE (TopAMAX) 100 MG TAB PO SCH ×2 (07:44→20:03)
[2022-11-29] MEDS: clonazePAM 1 MG TAB PO SCH ×2 (07:44→20:03)
[2022-11-29] MEDS: NICOTINE 14 MG/24 HR TRANSDERMAL TD SCH (07:45)
[2022-11-29] MEDS: diphenhydrAMINE 50MG CAP PO PRN ×2 (12:23→20:03)
[2022-11-29] MEDS: IBUPROFEN 400MG TAB PO PRN (14:55)
[2022-11-29 18:00] VITALS: BP 130/90; TEMP 97.4; O2SAT 99
[2022-11-29] MEDS: ANALGESIC BALM CRM 3OZ TOP PRN (20:03)
[2022-11-30] MEDS: ALBUTEROL 90 MCG/ACT 8GM HFA INHALER INH PRN ×3 (05:59→21:05)
[2022-11-30] MEDS: diphenhydrAMINE 50MG CAP PO PRN ×3 (06:02→21:06)
[2022-11-30 06:27] VITALS: BP 120/70; TEMP 98.8; O2SAT 98
[2022-11-30] MEDS: SUCRALFATE SUSP 1GM/10ML UD PO PRN (07:18)
[2022-11-30] MEDS: ONDANSETRON 4MG TAB PO PRN (07:18)
[2022-11-30] MEDS: clonazePAM 1 MG TAB PO SCH ×2 (07:59→21:05)
[2022-11-30] MEDS: TOPIRAMATE (TopAMAX) 100 MG TAB PO SCH ×2 (07:59→21:05)
[2022-11-30] MEDS: NICOTINE 14 MG/24 HR TRANSDERMAL TD SCH (08:01)
[2022-11-30] MEDS: PALIPERIDONE 3MG ER TAB (INVEGA) PO SCH (09:24)
[2022-11-30] MEDS: ANALGESIC BALM CRM 3OZ TOP PRN ×2 (10:00→21:05)
[2022-11-30] MEDS: IBUPROFEN 400MG TAB PO PRN (10:01)
[2022-11-30] MEDS: MAALOX 30 ML SUSP *UDC PO PRN (13:18)
[2022-11-30 18:44] VITALS: BP 136/63; TEMP 97.6; O2SAT 100
[2022-12-01] MEDS: SUCRALFATE SUSP 1GM/10ML UD PO PRN ×2 (06:19→17:34)
[2022-12-01] MEDS: diphenhydrAMINE 50MG CAP PO PRN ×3 (06:19→23:40)
[2022-12-01] MEDS: ALBUTEROL 90 MCG/ACT 8GM HFA INHALER INH PRN ×2 (06:19→20:04)
[2022-12-01 06:23] VITALS: BP 136/75; TEMP 97.5; O2SAT 99
[2022-12-01] MEDS: NICOTINE 14 MG/24 HR TRANSDERMAL TD SCH (08:12)
[2022-12-01] MEDS: clonazePAM 1 MG TAB PO SCH ×2 (08:12→20:04)
[2022-12-01] MEDS: TOPIRAMATE (TopAMAX) 100 MG TAB PO SCH ×2 (08:12→20:04)
[2022-12-01] MEDS: PALIPERIDONE 3MG ER TAB (INVEGA) PO SCH (08:12)
[2022-12-01 10:45] VITALS: BP 136/75; TEMP 97.5; O2SAT 99
[2022-12-01] MEDS: MAALOX 30 ML SUSP *UDC PO PRN (11:27)
[2022-12-01] MEDS: ONDANSETRON 4MG TAB PO PRN (12:19)
[2022-12-01] MEDS: IBUPROFEN 400MG TAB PO PRN (13:07)
[2022-12-01 17:16] VITALS: BP 122/68; TEMP 97.4; O2SAT 98
[2022-12-01] MEDS: ANALGESIC BALM CRM 3OZ TOP PRN (20:04)
[2022-12-01] MEDS: MOM 30ML SUSPENSION UDC PO PRN (20:05)
[2022-12-02] MEDS: ALBUTEROL 90 MCG/ACT 8GM HFA INHALER INH PRN ×3 (01:40→20:12)
[2022-12-02] MEDS: SUCRALFATE SUSP 1GM/10ML UD PO PRN (06:12)
[2022-12-02] MEDS: ONDANSETRON 4MG TAB PO PRN ×2 (06:22→16:45)
[2022-12-02 06:34] VITALS: BP 125/76; TEMP 97.7; O2SAT 100
[2022-12-02] MEDS: diphenhydrAMINE 50MG CAP PO PRN ×3 (07:40→22:56)
[2022-12-02] MEDS: IBUPROFEN 400MG TAB PO PRN (07:41)
[2022-12-02] MEDS: NICOTINE 14 MG/24 HR TRANSDERMAL TD SCH (08:03)
[2022-12-02] MEDS: TOPIRAMATE (TopAMAX) 100 MG TAB PO SCH ×2 (08:04→20:12)
[2022-12-02] MEDS: PALIPERIDONE 3MG ER TAB (INVEGA) PO SCH (08:04)
[2022-12-02] MEDS: clonazePAM 1 MG TAB PO SCH ×2 (08:04→20:13)
[2022-12-02] MEDS: ANALGESIC BALM CRM 3OZ TOP PRN ×2 (08:56→21:57)
[2022-12-02] MEDS ORDERED: PALIPERIDONE PAL 234MG/1.5ML INJ (INVEGA)(FREE PSY INPT ONLY) IM ONE (12:00)
[2022-12-02 17:04] VITALS: BP 132/80; TEMP 96.2; O2SAT 100
[2022-12-02] MEDS: MAALOX 30 ML SUSP *UDC PO PRN (21:57)
[2022-12-03] MEDS: SUCRALFATE SUSP 1GM/10ML UD PO PRN (05:56)
[2022-12-03] MEDS: diphenhydrAMINE 50MG CAP PO PRN (06:41)
[2022-12-03 06:46] VITALS: BP 112/69; TEMP 98.2; O2SAT 97
[2022-12-03] MEDS: ALBUTEROL 90 MCG/ACT 8GM HFA INHALER INH PRN (07:16)
[2022-12-03] MEDS: TOPIRAMATE (TopAMAX) 100 MG TAB PO SCH (08:03)
[2022-12-03] MEDS: clonazePAM 1 MG TAB PO SCH (08:03)
[2022-12-03] MEDS: PALIPERIDONE 3MG ER TAB (INVEGA) PO SCH (08:03)
[2022-12-03] MEDS: IBUPROFEN 400MG TAB PO PRN (08:05)
[2022-12-03] MEDS: NICOTINE 14 MG/24 HR TRANSDERMAL TD SCH (08:06)
[2022-12-03] MEDS: ANALGESIC BALM CRM 3OZ TOP PRN (09:38)
[2022-12-03] MEDS ORDERED: TOPI200T7 PO (12:19)
[2022-12-03] MEDS ORDERED: CLON0.5T2 PO (12:19)
[2022-12-03] MEDS ORDERED: CLON1TAB8 PO (12:19)
[2022-12-03] MEDS ORDERED: NICO14PA TD (12:19)
[2022-12-03] MEDS ORDERED: INVE156I IM (12:19)
[2022-12-03] MEDS ORDERED: INVE6TAB3 PO (12:19)
[2022-12-03] MEDS: ONDANSETRON 4MG TAB PO PRN (12:35)
== END 2022-12-03 13:44 | disposition home or self-care (01) | DRG 885 ==
LOC: M ED 12:12 → M ED INP 16:17 → M PSY 17:28
PROVIDERS: ADMIT Student in an Organized Health Care Education/Training Program; ATTEND Student in an Organized Health Care Education/Training Program
DX: F31.9 Bipolar disorder, unspecified (principal); F43.10 Post-traumatic stress disorder, unspecified; F12.10 Cannabis abuse, uncomplicated; F25.0 Schizoaffective disorder, bipolar type; F17.200 Nicotine dependence, unspecified, uncomplicated; Z79.899 Other long term (current) drug therapy; Z88.0 Allergy status to penicillin; Z88.8 Allergy status to other drugs, medicaments and biological substances; J44.9 Chronic obstructive pulmonary disease, unspecified